=== PATIENT | female | born 1955 | race Caucasian/White ===

== ENCOUNTER → 2016-09-01 | Day surgery (SDC) | payer BC ==
[2016-08-21 10:42] VITALS: Ht 170.2 cm; Wt 68.2 kg
[~2016-09-01] VITALS: Ht 170.2 cm; Wt 68.2 kg
[~2016-09-01] MED LIST: 500ML BSS 0.3ML EPI 1:1000PF IRRIG ONE; ACET-1256 PO; ACETAMINOPHEN 325 MG TAB PO PRN; ACYC1OIN4 EXT; ALBU18002 INH; AMOX500T PO; AMOX875T PO; AMVISC PLUS 0.8ML SYRINGE INT OCU ONE; ATV/1 PO; BROM0.07 OPR; BSS FLUSH ONE; CALC1TAB9 PO; CEPH500C2 PO; COLON HEALTH PO; CYM/30 PO; DICL1GEL12 EXT; DILT1TAB58 PO; DOXY100C76 PO; DULO60CA44 PO; EpINEphrine INJ 1MG/ML AMP 1 MG/ML AMP ONE; FERR1TAB13 PO; FLUT0.15 NAE; GABA-113 PO; HYDR-5688 PO; HYG/25 PO; LACTATED RINGER'S 1000ML 500 ML IV SCH; LEVO50TA PO; LIDOCAINE 3.5% OPH GEL PER APPLICATION CHARGE ONE; LIDOCAINE HCL 1% MPF 2 ML VIAL ONE; LIDOCAINE HCL 2% 2 ML VIAL (20MG/ML) ONE; LOSA1TAB38 PO; LURA1TAB PO; MELO7.5T7 PO; META1TAB22 PO; METF-384 PO; METF1TAB53 PO; MIDAZOLAM HCL 1 MG/ML 2ML VIAL ONE; OCUCOAT 1 ML SOLN IO ONE; POTA20TA16 PO; POVIDONE-IODINE OP SOLN 30 ML BTL ONE; PRED-301 PO; PRED1SUS17 OPR; PRLSR20 PO; PROPARACAINE 0.5% OP SOLN PER DROP CHARGE OPR SCH; SULF800T23 PO; TOBRAMYCIN/DEXAMETHASONE OPH OINT PER APPLN CHARGE ONE; TOPI100T20 PO; TRAM-10 PO; TRMO115 TOP
--- NOTE | 2016-09-01 09:10 | History & Physical Bridge - [place] ---
H&P Re-Evaluation Bridge Note: I have examined the patient, reviewed the History & Physical and in the interval since the performance of the History & Physical I have noted the following changes of clinical significance: Diagnosis: Right Cataract Procedure: Right Cataract Removal with Lens Implant No changes noted
[2016-09-01] MEDS: PHENYLEPHRINE HCL 2.5% OP SOLN PER DROP CHARGE OPR SCH ×2 (09:15→09:20)
[2016-09-01] MEDS: TROPICAMIDE 1% OP SOLN PER DROP CHARGE OPR SCH ×2 (09:16→09:21)
[2016-09-01] MEDS: CYCLOPENTOLATE HCL 1% OP SOLN PER DROP CHARGE OPR SCH ×2 (09:17→09:22)
[2016-09-01] MEDS: KETOROLAC 0.5% OP SOLN PER DROP CHARGE OPR SCH ×2 (09:18→09:22)
[2016-09-01] MEDS: GATIFLOXACIN OP SOLN PER DROP CHARGE OPR SCH ×2 (09:19→09:26)
[2016-09-01 10:22] VITALS: TEMP 36.5
--- NOTE | 2016-09-01 10:22 | Discharge Instructions-SurgCtr ---
Discharge Instructions Visit Reason for Visit: Cataract Right Eye Discharge Discharge Diagnosis / Problem: cataract Discharge Goals Goal(s): Improve function Activity Recommendations Activity Limitations: per Instructions/Follow-up section Anesthesia . Post Anesthesia Instructions: If you have had General Anesthesia or IV Sedation: * Do not drive today. * Resume driving when surgeon permits. * Do not make important decisions or sign legal documents today. * Call surgeon for: 1. Temperature elevations greater than 101 degrees F. 2. Uncontrollable pain. 3. Excessive bleeding. 4. Persistent nausea and vomiting. 5. Medication intolerance (nausea, vomiting or rash). * For nausea and vomiting use only clear liquids such as: tea, soda, bouillon until nausea subsides, then gradually increase diet as tolerated. * If you have any concerns or questions, call your surgeon's office. If physician is unavailable and it is an emergency, call 911 or go to the nearest emergency room. . Instructions / Follow-Up Instructions / Follow-Up ACTIVITY RECOMMENDATIONS: * No strenuous lifting, jogging or running for 4 days * No swimming or yard work for 1 week. * Limited bending is permitted, such as putting on shoes. RETURN TO SCHOOL/WORK: No work until seen by physician in office. MEDICATIONS: Resume previous medications unless instructed otherwise by your surgeon. This includes eye drops for glaucoma. Zymaxid/Gatifloxacin (moreno cap) - one drop every 2 hours until bedtime Nevanac/Ilevro/Prolensa/Ketorolac (sheppard cap) - one drop every 4 hours until bedtime Prednisolone (white/pink cap, SHAKE WELL) - one drop every 2 hours until bedtime Starting tomorrow - all 3 drops every 4 hours until seen in the office Optive drops - as needed for discomfort SPECIAL CARE INSTRUCTIONS: * Wear eyeshield when sleeping, for four nights. * You may wear your own glasses or sunglasses while awake. * You may read or watch TV * You may shower and wash your face, but be gentle around the eye and pat dry. * Blurry vision and mild irritation are normal. * Call office if pain is more severe or vision becomes dark at . FOLLOW UP VISIT: Follow-up with Dr Tejeda tomorrow. Diet Recommendations Home Diet: resume previous diet Procedures Procedures Performed: Right Cataract Phacoemulsification With Intraocular Lens Implant Pending Studies Studies pending at discharge: no Medical Emergencies . Who to Call and When: Medical Emergencies: If at any time you feel your situation is an emergency, please call 911 immediately. . Non-Emergent Contact Non-Emergency issues call your: Blood Bank Manager . . "Provider Documentation" section prepared by Adarsh Tejeda.
--- NOTE | 2016-09-01 10:23 | [facility] Operative Report ---
Operative Report 1. PREOPERATIVE DIAGNOSIS: Cataract of the right eye. 2. POSTOPERATIVE DIAGNOSIS: Same. 3. PROCEDURE: Phacoemulsification with intraocular lens implantation of the right eye. SURGEON: Dr. Adarsh Tejeda. ANESTHESIA: Topical Lidocaine gel, 1% Non- Preserved intracameral Lidocaine, and monitored intravenous sedation. INDICATIONS FOR THE PROCEDURE: The patient is a 61 - year-old female with a history of cataract of the right eye causing significant visual impairment. The details of the proposed procedure were explained to the patient who asked appropriate questions and following discussion of all risks, benefits and alternatives agreed to have the procedure done. 4. OPERATION AND FINDINGS: DESCRIPTION OF PROCEDURE: After informed consent was obtained, the patient was brought to the Operating Room at the [facility]. The patient was placed in a supine position and then the right eye was prepped and draped in the usual sterile fashion for intraocular surgery. A drop of topical Lidocaine gel was placed in the operative eye. A wire lid speculum was then placed in the fornices. A corneal paracentesis was then created temporally. The Non-Preserved Lidocaine was then instilled into the anterior chamber. The anterior chamber was then pressurized with viscoelastic. A 2.0 mm clear corneal incision was then created temporally. A cystotome was inserted into the anterior chamber and used to create a tear in the anterior lens capsule. This capsular tear was then used to create a small flap and the flap was dragged in a counterclockwise direction in order to create a continuous curvilinear capsulorrhexis. Hydrodissection was accomplished with balanced salt solution. Phacoemulsification of the lens nucleus was then performed in a standard [id number] technique. The phaco time was 37 seconds with an average power of 23 %. The remaining cortical material was removed using irrigation aspiration. The capsular bag was then filled with viscoelastic. A [employer] Lomb MI60L +12.5 diopters lens was then loaded into the injector and injected into the capsular bag. The remaining viscoelastic was removed with the irrigation aspiration handpiece. The wound was hydrated and then checked and found to be watertight. The intraocular pressure was checked and found to be adequate. The wire lid speculum was removed and the patient's face was cleaned and dried. TobraDex ointment was placed in the inferior fornix. The patient was discharged to the Recovery Room having tolerated the procedure well. There were no complications. The patient will be seen tomorrow in the office for follow-up. I attest to the content of the Intraoperative Record and any orders documented therein. Any exceptions are noted below.
--- NOTE | 2016-09-01 10:29 | Anesthesia Progress Nt - [facility] ---
Anesthesia Post Op Note Date & Time Sep 01, 2016 at 10:29 Vital Signs Pain Intensity: 0 Vital Signs Past 12 Hours Date Time Temp Pulse Resp B/P Pulse Ox O2 Delivery O2 Flow Rate FiO2 09/01/16 10:22 36.5 80 16 124/73 95 Room Air 09/01/16 09:05 37.1 85 20 138/88 97 Room Air Notes Mental Status: alert / awake / arousable, participated in evaluation Pt Amnestic to Procedure: No Nausea / Vomiting: adequately controlled Pain: adequately controlled Airway Patency, RR, SpO2: stable & adequate BP & HR: stable & adequate Hydration State: stable & adequate Anesthetic Complications: no major complications apparent Recall as expected.
[2016-09-01 10:40] VITALS: BP 117/75; PULSE 80; O2SAT 96
== END | disposition home or self-care (01) ==
LOC: X.SURG 08:47
PROVIDERS: ATTEND Ophthalmology
DX: H26.9 Unspecified cataract (principal); Z87.891 Personal history of nicotine dependence; Z00.00 Encounter for general adult medical examination without abnormal findings; K22.70 Barrett's esophagus without dysplasia; M79.7 Fibromyalgia; I10 Essential (primary) hypertension; M17.9 Osteoarthritis of knee, unspecified; F41.8 Other specified anxiety disorders

== ENCOUNTER 2016-09-10 20:16 | Emergency (ER) | payer BC ==
[~2016-09-10] VITALS: Ht 172.7 cm; Wt 69.0 kg
[~2016-09-10 20:16] MED LIST changes: -500ML BSS 0.3ML EPI 1:1000PF IRRIG ONE; -ACETAMINOPHEN 325 MG TAB PO PRN; -AMOX500T PO; -AMOX875T PO; -AMVISC PLUS 0.8ML SYRINGE INT OCU ONE; -BROM0.07 OPR; -BSS FLUSH ONE; -CEPH500C2 PO; -DOXY100C76 PO; -EpINEphrine INJ 1MG/ML AMP 1 MG/ML AMP ONE; -HYDR-5688 PO; -LACTATED RINGER'S 1000ML 500 ML IV SCH; -LIDOCAINE 3.5% OPH GEL PER APPLICATION CHARGE ONE; -LIDOCAINE HCL 1% MPF 2 ML VIAL ONE; -LIDOCAINE HCL 2% 2 ML VIAL (20MG/ML) ONE; -METF-384 PO; -METF1TAB53 PO; -MIDAZOLAM HCL 1 MG/ML 2ML VIAL ONE; -OCUCOAT 1 ML SOLN IO ONE; -POVIDONE-IODINE OP SOLN 30 ML BTL ONE; -PRED1SUS17 OPR; -PROPARACAINE 0.5% OP SOLN PER DROP CHARGE OPR SCH; -SULF800T23 PO; -TOBRAMYCIN/DEXAMETHASONE OPH OINT PER APPLN CHARGE ONE; -TRMO115 TOP
[2016-09-10 20:26] VITALS: Ht 172.7 cm; Wt 69.0 kg
[2016-09-10] MEDS ORDERED: SODIUM CHLORIDE 0.9% 500ML 500 ML IV STA (21:21)
[2016-09-10] MEDS ORDERED: MoRPHine SULFATE 2 MG/ML CARP IV STA (21:21)
[2016-09-10] MEDS ORDERED: ONDANSETRON INJ 2 MG/ML 2 ML VIAL IV STA (21:21)
[2016-09-10 21:50] VITALS: O2SAT 95
[2016-09-10 22:02] LABS: HEMATOCRIT 38.5 % (37-47); MEAN CELL VOLUME 92.5 fL (80-100); MEAN CORPUSCULAR HEMOGLOBIN 33.2 pg (25-34); MEAN CORPUSCULAR HGB CONC 35.8 g/dl (32-36); MEAN PLATELET VOLUME 8.6 fL (7.4-10.4); PLATELET COUNT 159 K/uL (130-400); RED BLOOD COUNT 4.16 M/uL (4.2-5.4); WHITE BLOOD COUNT 7.19 K/uL (4.8-10.8)
[2016-09-10 22:26] LABS: BUN/CREATININE RATIO 23.6 (10-20); CALCIUM 9.5 mg/dl (8.5-10.1); CREATININE 1.1 mg/dl (0.60-1.20); POTASSIUM 3.2 mmol/L (3.5-5.1)
--- NOTE | 2016-09-10 22:28 | DIAGNOSTIC IMAGING REPORT ---
CT HEAD WITHOUT CONTRAST (CT) CLINICAL HISTORY: Head pain status post trauma COMPARISON STUDY: 06/16/2016 TECHNIQUE: Axial CT of the brain is performed from the vertex to the skull base. IV contrast was not administered for this examination. CT DOSE: 901.49 mGy.cm FINDINGS: No intra or extra-axial mass lesions are visualized. There is no CT evidence of acute cortical infarction. There is no evidence of midline shift. There is no acute hemorrhage. No calvarial fractures are visualized. There are minimal white matter hypodensities likely on a small vessel basis. There is no evidence of pathologic ventricular dilatation. There is no evidence of acute sinusitis IMPRESSION: No acute intracranial findings Electronically signed by: Tai Ramirez M.D. 09/10/2016 10:27 PM Dictated Date/Time: 09/10/2016 10:25 PM
[2016-09-10 22:29] LABS: ALB/GLOB RATIO 1.1 (0.9-2)
[2016-09-10 22:30] LABS: INR 0.9 (0.9-1.1); PARTIAL THROMBOPLASTIN RATIO 0.9; PROTHROMBIN TIME (PATIENT) 10.1 SECONDS (9.0-12.0)
--- NOTE | 2016-09-10 22:30 | DIAGNOSTIC IMAGING REPORT ---
CT OF THE CERVICAL SPINE CLINICAL HISTORY: Neck pain status post trauma COMPARISON STUDY: No previous studies for comparison. CT DOSE: TECHNIQUE: CT scan of the cervical spine was performed from the skull base to the thoracic inlet. Images are reviewed in the axial, sagittal, and coronal planes. IV contrast was not administered for this examination. FINDINGS: The visualized portions of the lung apices reveal no evidence of pneumothorax. The prevertebral soft tissues are normal. No fractures or subluxations are visualized. There are multilevel degenerative changes. Several chronic ossicles are visualized superior to the dens. Degenerative changes are most severe at the C5-6 and C6-7 levels. IMPRESSION: No evidence of acute fracture or traumatic subluxation. Electronically signed by: Tai Ramirez M.D. 09/10/2016 10:29 PM Dictated Date/Time: 09/10/2016 10:27 PM
[2016-09-10 22:36] LABS: BASO ABS # 0.06 K/uL (0-0.2); BASOPHIL % 0.9 %; COMPLETE YES; ECHINOCYTES 1+; EOSINOPHIL % 2.6 %; LYMPH ABS # 2.11 K/uL (1.2-3.4); LYMPHOCYTE % 29.3 %; NEUTROPHILS % 58.6 %
--- NOTE | 2016-09-10 22:46 | DIAGNOSTIC IMAGING REPORT ---
RIGHT CALF ULTRASONOGRAPHY CLINICAL HISTORY: Right lower leg pain status post trauma COMPARISON STUDY: None FINDINGS: there is a complex posterior calf mass measuring 59 x 23 x 27 mm. The appearance is highly suggestive of a hematoma. There is no internal vascularity. There was overlying skin ecchymosis. IMPRESSION: Complex posterior calf mass measuring 59 x 23 x 27 mm. The appearance is highly suggestive of a hematoma Electronically signed by: Tai Ramirez M.D. 09/10/2016 10:44 PM Dictated Date/Time: 09/10/2016 10:43 PM
[2016-09-10 23:01] LABS: URINE APPEARANCE CLEAR (CLEAR); URINE BILIRUBIN NEG (NEG); URINE COLOR YELLOW; URINE NITRITE NEG (NEG); URINE SPECIFIC GRAVITY 1.017 (1.000-1.030); UROBILINOGEN NEG (NEG); ZZUR CULT IF INDIC CLEAN CATCH NO
[2016-09-10 23:06] LABS: MANUAL MICROSCOPIC REQUIRED? NO; REVIEW REQ? NO
[2016-09-10] MEDS ORDERED: METF-384 PO (23:10)
[2016-09-11] MEDS ORDERED: NORCO 5/325MG HOME PACK PO ONE
[2016-09-11] MEDS ORDERED: HYDR-5688 PO (00:01)
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
[2016-09-11 00:15] VITALS: BP 142/94; PULSE 72; TEMP 37; O2SAT 99
--- NOTE | 2016-09-11 06:37 | DIAGNOSTIC IMAGING REPORT ---
RIGHT RIBS UNILATERAL WITH PA CHEST CLINICAL HISTORY: posterior pain/injury Right trauma COMPARISON STUDY: None FINDINGS: Negative right ribs. Negative chest. IMPRESSION: Negative study Electronically signed by: Mauricio Donnelly M.D. 09/11/2016 6:35 AM Dictated Date/Time: 09/11/2016 6:33 AM
--- NOTE | 2016-09-11 06:42 | DIAGNOSTIC IMAGING REPORT ---
RIGHT TIBIA/FIBULA 2 VIEWS ROUTINE CLINICAL HISTORY: pain/injury Right COMPARISON: None. DISCUSSION: The bones and joint spaces appear intact. There is no evidence of fracture, dislocation or bony disease. There is no evidence for soft tissue swelling. IMPRESSION: Negative study. Electronically signed by: Mauricio Donnelly M.D. 09/11/2016 6:41 AM Dictated Date/Time: 09/11/2016 6:40 AM
[2016-09-14] MEDS ORDERED: PRED1SUS17 OPR (11:19)
[2016-09-14] MEDS ORDERED: BROM0.07 OPR (11:19)
[2016-10-06] MEDS ORDERED: HYDR-5688 PO (13:08)
[2016-10-06] MEDS ORDERED: TRMO115 TOP (13:10)
[2016-10-06] MEDS ORDERED: CEPH500C2 PO (13:10)
[2016-10-06] MEDS ORDERED: METF1TAB53 PO (13:10)
[2016-10-06] MEDS ORDERED: DOXY100C76 PO (13:19)
[2016-10-13] MEDS ORDERED: AMOX500T PO (14:28)
[2016-10-21] MEDS ORDERED: AMOX875T PO (09:14)
[2016-11-23] MEDS ORDERED: SULF800T23 PO (10:36)
== END 2016-09-11 00:16 | disposition home or self-care (01) ==
LOC: EDBD 20:16 → C.EDD 20:18
DX: S80.11XA Contusion of right lower leg, initial encounter (principal); S20.211A Contusion of right front wall of thorax, initial encounter; Y04.0XXA Assault by unarmed brawl or fight, initial encounter; F32.9 Major depressive disorder, single episode, unspecified; I10 Essential (primary) hypertension; F31.9 Bipolar disorder, unspecified; Z98.890 Other specified postprocedural states; Z96.642 Presence of left artificial hip joint

== ENCOUNTER → 2016-09-24 | Day surgery (SDC) | payer BC ==
[2016-09-14 11:11] VITALS: Ht 170.2 cm; Wt 71.8 kg
[~2016-09-24] VITALS: Ht 170.2 cm; Wt 71.8 kg
[~2016-09-24] MED LIST changes: +500ML BSS 0.3ML EPI 1:1000PF IRRIG ONE; +ACETAMINOPHEN 325 MG TAB PO PRN; +AMOX500T PO; +AMOX875T PO; +AMVISC PLUS 0.8ML SYRINGE INT OCU ONE; +BROM0.07 OPR; +BSS FLUSH ONE; +CEPH500C2 PO; +DOXY100C76 PO; +EpINEphrine INJ 1MG/ML AMP 1 MG/ML AMP ONE; +HYDR-5688 PO; +LACTATED RINGER'S 1000ML 500 ML IV SCH; +LIDOCAINE 3.5% OPH GEL PER APPLICATION CHARGE ONE; +LIDOCAINE HCL 1% MPF 2 ML VIAL ONE; +METF1TAB53 PO; +MIDAZOLAM HCL 1 MG/ML 2ML VIAL ONE; +OCUCOAT 1 ML SOLN IO ONE; +POVIDONE-IODINE OP SOLN 30 ML BTL ONE; +PRED1SUS17 OPR; +PROPARACAINE 0.5% OP SOLN PER DROP CHARGE OPL SCH; +SULF800T23 PO; +TOBRAMYCIN/DEXAMETHASONE OPH OINT PER APPLN CHARGE ONE; +TRMO115 TOP
[2016-09-24] MEDS: PHENYLEPHRINE HCL 2.5% OP SOLN PER DROP CHARGE OPL SCH ×2 (09:24→09:29)
[2016-09-24] MEDS: TROPICAMIDE 1% OP SOLN PER DROP CHARGE OPL SCH ×2 (09:25→09:30)
[2016-09-24] MEDS: CYCLOPENTOLATE HCL 1% OP SOLN PER DROP CHARGE OPL SCH ×2 (09:27→09:31)
[2016-09-24] MEDS: KETOROLAC 0.5% OP SOLN PER DROP CHARGE OPL SCH ×2 (09:27→09:32)
[2016-09-24] MEDS: GATIFLOXACIN OP SOLN PER DROP CHARGE OPL SCH ×2 (09:28→09:35)
--- NOTE | 2016-09-24 09:56 | History & Physical Bridge - SC ---
H&P Re-Evaluation Bridge Note: I have examined the patient, reviewed the History & Physical and in the interval since the performance of the History & Physical I have noted the following changes of clinical significance: Diagnosis: Left Cataract Procedure: Left Cataract Removal with Lens Implant No changes noted
[2016-09-24 10:35] VITALS: TEMP 36.7
--- NOTE | 2016-09-24 10:35 | [facility] Operative Report ---
Operative Report Date of Service Sep 24, 2016. Operative Report 1. PREOPERATIVE DIAGNOSIS: Cataract of the left eye. 2. POSTOPERATIVE DIAGNOSIS: Same. 3. PROCEDURE: Phacoemulsification with intraocular lens implantation of the left eye. SURGEON: Dr. Adarsh Tejeda. ANESTHESIA: Topical Lidocaine gel, 1% Non- Preserved intracameral Lidocaine, and monitored intravenous sedation. INDICATIONS FOR THE PROCEDURE: The patient is a 61 - year-old female with a history of cataract of the left eye causing significant visual impairment. The details of the proposed procedure were explained to the patient who asked appropriate questions and following discussion of all risks, benefits and alternatives agreed to have the procedure done. 4. OPERATION AND FINDINGS: DESCRIPTION OF PROCEDURE: After informed consent was obtained, the patient was brought to the Operating Room at the [facility]. The patient was placed in a supine position and then the left eye was prepped and draped in the usual sterile fashion for intraocular surgery. A drop of topical Lidocaine gel was placed in the operative eye. A wire lid speculum was then placed in the fornices. A corneal paracentesis was then created temporally. The Non-Preserved Lidocaine was then instilled into the anterior chamber. The anterior chamber was then pressurized with viscoelastic. A 2.0 mm clear corneal incision was then created temporally. A cystotome was inserted into the anterior chamber and used to create a tear in the anterior lens capsule. This capsular tear was then used to create a small flap and the flap was dragged in a counterclockwise direction in order to create a continuous curvilinear capsulorrhexis. Hydrodissection was accomplished with balanced salt solution. Phacoemulsification of the lens nucleus was then performed in a standard [id number]-lyd-rmrusil technique. The phaco time was 36 seconds with an average power of 23 %. The remaining cortical material was removed using irrigation aspiration. The capsular bag was then filled with viscoelastic. A [employer] MI60L +14.0 diopters lens was then loaded into the injector and injected into the capsular bag. The remaining viscoelastic was removed with the irrigation aspiration handpiece. The wound was hydrated and then checked and found to be watertight. The intraocular pressure was checked and found to be adequate. The wire lid speculum was removed and the patient's face was cleaned and dried. TobraDex ointment was placed in the inferior fornix. The patient was discharged to the Recovery Room having tolerated the procedure well. There were no complications. The patient will be seen tomorrow in the office for follow-up. I attest to the content of the Intraoperative Record and any orders documented therein. Any exceptions are noted below.
--- NOTE | 2016-09-24 10:35 | Discharge Instructions-SurgCtr ---
Discharge Instructions Date of Service Sep 24, 2016. Visit Reason for Visit: Cataract Left Eye Discharge Discharge Diagnosis / Problem: cataract Discharge Goals Goal(s): Improve function Activity Recommendations Activity Limitations: per Instructions/Follow-up section Anesthesia . Post Anesthesia Instructions: If you have had General Anesthesia or IV Sedation: * Do not drive today. * Resume driving when surgeon permits. * Do not make important decisions or sign legal documents today. * Call surgeon for: 1. Temperature elevations greater than 101 degrees F. 2. Uncontrollable pain. 3. Excessive bleeding. 4. Persistent nausea and vomiting. 5. Medication intolerance (nausea, vomiting or rash). * For nausea and vomiting use only clear liquids such as: tea, soda, bouillon until nausea subsides, then gradually increase diet as tolerated. * If you have any concerns or questions, call your surgeon's office. If physician is unavailable and it is an emergency, call 911 or go to the nearest emergency room. . Instructions / Follow-Up Instructions / Follow-Up ACTIVITY RECOMMENDATIONS: * No strenuous lifting, jogging or running for 4 days * No swimming or yard work for 1 week. * Limited bending is permitted, such as putting on shoes. RETURN TO SCHOOL/WORK: No work until seen by physician in office. MEDICATIONS: Resume previous medications unless instructed otherwise by your surgeon. This includes eye drops for glaucoma. Zymaxid/Gatifloxacin (moreno cap) - one drop every 2 hours until bedtime Nevanac/Ilevro/Prolensa/Ketorolac (sheppard cap) - one drop every 4 hours until bedtime Prednisolone (white/pink cap, SHAKE WELL) - one drop every 2 hours until bedtime Starting tomorrow - all 3 drops every 4 hours until seen in the office Optive drops - as needed for discomfort SPECIAL CARE INSTRUCTIONS: * Wear eyeshield when sleeping, for four nights. * You may wear your own glasses or sunglasses while awake. * You may read or watch TV * You may shower and wash your face, but be gentle around the eye and pat dry. * Blurry vision and mild irritation are normal. * Call office if pain is more severe or vision becomes dark at . FOLLOW UP VISIT: Follow-up with Dr Tejeda tomorrow. Diet Recommendations Home Diet: resume previous diet Procedures Procedures Performed: Left Cataract Phacoemulsification With Intraocular Lens Implant Pending Studies Studies pending at discharge: no Medical Emergencies . Who to Call and When: Medical Emergencies: If at any time you feel your situation is an emergency, please call 911 immediately. . Non-Emergent Contact Non-Emergency issues call your: Cage Maker . . "Provider Documentation" section prepared by Adarsh Tejeda.
--- NOTE | 2016-09-24 11:03 | Anesthesia Progress Nt - [facility] ---
Anesthesia Post Op Note Date & Time Sep 24, 2016 at 11:03 Vital Signs Pain Intensity: 0 Vital Signs Past 12 Hours Date Time Temp Pulse Resp B/P Pulse Ox O2 Delivery O2 Flow Rate FiO2 09/24/16 10:35 36.7 82 16 127/77 97 Room Air 09/24/16 09:14 36.8 76 18 147/88 97 Room Air Notes Mental Status: alert / awake / arousable, participated in evaluation Pt Amnestic to Procedure: Yes Nausea / Vomiting: adequately controlled Pain: adequately controlled Airway Patency, RR, SpO2: stable & adequate BP & HR: stable & adequate Hydration State: stable & adequate Anesthetic Complications: no major complications apparent
[2016-09-24 11:05] VITALS: BP 133/83; PULSE 81; O2SAT 96
== END | disposition home or self-care (01) ==
LOC: X.SURG 08:53
PROVIDERS: ATTEND Ophthalmology
DX: H26.9 Unspecified cataract (principal); H54.7 Unspecified visual loss; I10 Essential (primary) hypertension; K21.9 Gastro-esophageal reflux disease without esophagitis; M19.90 Unspecified osteoarthritis, unspecified site

== ENCOUNTER 2017-05-24 16:05 | Inpatient (IN) | payer BC ==
[~2017-05-24] VITALS: Ht 170.2 cm; Wt 78.0 kg
[~2017-05-24 16:05] MED LIST changes: -500ML BSS 0.3ML EPI 1:1000PF IRRIG ONE; -ACETAMINOPHEN 325 MG TAB PO PRN; -AMOX500T PO; -AMOX875T PO; -AMVISC PLUS 0.8ML SYRINGE INT OCU ONE; -BSS FLUSH ONE; -DOXY100C76 PO; -EpINEphrine INJ 1MG/ML AMP 1 MG/ML AMP ONE; -HYG/25 PO; -LACTATED RINGER'S 1000ML 500 ML IV SCH; -LIDOCAINE 3.5% OPH GEL PER APPLICATION CHARGE ONE; -LIDOCAINE HCL 1% MPF 2 ML VIAL ONE; -MIDAZOLAM HCL 1 MG/ML 2ML VIAL ONE; -OCUCOAT 1 ML SOLN IO ONE; -POVIDONE-IODINE OP SOLN 30 ML BTL ONE; -PROPARACAINE 0.5% OP SOLN PER DROP CHARGE OPL SCH; -SULF800T23 PO; -TOBRAMYCIN/DEXAMETHASONE OPH OINT PER APPLN CHARGE ONE
--- NOTE | 2017-05-24 16:23 | EMERGENCY ROOM VISIT NOTE ---
History Report prepared by Kevin: Ilana Colin Under the Supervision of: Dr. Tone Raza M.D. First contact with patient: 16:07 Chief Complaint: FALL Stated Complaint: LEFT KNEE, ARM, HIP & BACK PAIN FROM FALL History of Present Illness The patient is a 61 year old female who presents to the Emergency Room with complaints of an episode of a fall beginning last night. The patient states that she was in the kitchen and had an episode of loss of consciousness and woke up on the floor near the kitchen sink. She reports that she does not know how long she was not conscious for and has no history of syncope. She notes that schneider she tried to get up after the fall and kept falling asleep and she is concerned that her fall had something to do with taking her pain medication. The patient states that she has a history of fibromyalgia. She complains of left leg pain and swelling, left knee pain and swelling, left foot and ankle pain, left sided groin pain, right upper thigh pain, back pain, and left arm pain. She notes that she has been able to walk today but it is very painful and that is why she came into the ED. The patient states that she takes gabapentin, extra strength Tylenol, tramadol, and an antibiotic for a sinus infection. She notes that her normal pain medications have not relieved her pain. Source of History: patient Onset: last night Position: other (global) Quality: other (syncope) Timing: other (episode) Modifying Factors (Relieving): other (none) Associated Symptoms: + LOC Note: She complains of left leg pain and swelling, left knee pain and swelling, left foot and ankle pain, left sided groin pain, right upper thigh pain, back pain, and left arm pain. Review of Systems See HPI for pertinent positives & negatives. A total of 10 systems reviewed and were otherwise negative. Past Medical & Surgical Medical Problems: (1) Bipolar disorder (2) Borderline personality disorder (3) Depression (4) Fibromyalgia (5) HTN (hypertension) Surgical Problems: (1) H/O inguinal hernia repair (2) History of back surgery (3) Status post total hip replacement, left Family History Cancer FH: heart disease FHx: lung disease Hypertension Social History Smoking Status: Former Smoker Alcohol Use: none Drug Use: none Marital Status: Housing Status: lives with family Occupation Status: retired, disabled Current/Historical Medications Scheduled Calcium Citrate-Vitamin D (Citracal + D3 Maximum), 1 TAB PO BID Cefuroxime Axetil (Cefuroxime Axetil), 500 MG PO BID Chlorthalidone (Hygroton), 25 MG PO QAM Diltiazem Hcl Coated Beads (Cardizem La), 120 MG PO QAM Duloxetine HCl (Cymbalta), 1 CAP PO QAM Duloxetine Hcl (Cymbalta), 60 MG PO QAM Ferrous Sulfate (Kp Ferrous Sulfate), 1 TAB PO BID Gabapentin (Neurontin), 4 CAP PO TID Levothyroxine Sodium (Synthroid), 50 MCG PO QAM Losartan Potassium (Cozaar), 100 MG PO QAM Lurasidone Hcl (Latuda), 20 MG PO HS Meloxicam (Mobic), 7.5 MG PO BID Metaxalone (Skelaxin), 800 MG PO QID Omeprazole (Prilosec), 20 MG PO BID Potassium Ext Rel (Klor-Con), 20 MEQ PO QAM Prednisone (Prednisone), 5 MG PO QAM Topiramate (Topamax), 150 MG PO HS Triamcinolone Acet (Triamcinolone Acetonide), 1 APPLN TOP BID [Colon Health], 1 CAP PO QAM Scheduled PRN Acetaminophen (Tylenol), 2 TAB PO Q4H PRN for Pain Acyclovir Topical (Acyclovir), 1 DOSE EXT DIRECTED PRN for PRN Albuterol Sulfate (Proair Respiclick), 2 PUFFS INH QID PRN for Shortness of Breath Diclofenac Sodium (Topical) (Voltaren 1% Top Gel), 1 DOSE EXT QID PRN for Pain Fluticasone Propionate (Nasal) (Flonase Allergy Relief), 2 SPRAY MEAGAN DAILY PRN for PRN Lorazepam (Ativan), 1 MG PO DAILY PRN for Anxiety Tramadol (Ultram), 2 TAB PO Q6H PRN for Pain Allergies Coded Allergies: Cyclobenzaprine (Verified Allergy, Intermediate, RASH AND SWELLING, ) Fentanyl (Verified Allergy, Unknown, MAJOR FEET SWELLING, 05/24/17) Oxcarbazepine (Verified Allergy, Unknown, UNKNOWN - PT DOESN'T REMEMBER, 05/24/17) Risperidone (Verified Adverse Reaction, Intermediate, exhaustion, 05/24/17) Clonazepam (Verified Adverse Reaction, Mild, nausea, 05/24/17) Physical Exam Vital Signs Date Time Temp Pulse Resp B/P (MAP) Pulse Ox O2 Delivery O2 Flow Rate FiO2 05/24/17 20:12 84 18 142/92 97 Room Air 05/24/17 19:17 83 05/24/17 18:30 94 18 154/101 95 Room Air 05/24/17 16:20 36.8 95 20 168/105 98 Room Air Physical Exam GENERAL: Patient is disinterested in my questions, focused on explaining events of last 24 hours. HEENT: No acute trauma, normocephalic atraumatic, mucous membranes moist, no nasal congestion, no scleral icterus. NECK: No stridor, no adenopathy, no meningismus, trachea is midline. LUNGS: No dyspnea. Clear to auscultation and equal bilaterally. No wheeze, no rhonchi. HEART: Regular rate and rhythm. No murmurs, rubs, gallops appreciated. ABDOMEN: Soft, nontender, bowel sounds positive, no masses appreciated, no peritonitis. BACK: Old surgical scarring of the upper back. EXTREMITIES: Effusion of left knee with pain with range of motion, old scarring on left upper arm. Tender to palpation anywhere on the body. Several small bruises of the left knee which appear several days old. NEUROLOGIC: Alert and oriented, no acute motor or sensory deficits, no focal weakness, cranial nerves grossly intact. SKIN: No rash, no jaundice, no diaphoresis. Medical Decision & Procedures ER Provider Diagnostic Interpretation: Radiology results and stated below per my review and radiologist interpretation: L TIBIA/FIBULA 2 VIEWS ROUTINE DISCUSSION: The bones and joint spaces appear intact. There is no evidence of fracture, dislocation or bony disease. Degenerative change left knee. Small joint effusion. IMPRESSION: Degenerative change. Small left knee joint effusion. No acute bony abnormality. The above report was generated using voice recognition software. It may contain grammatical, syntax or spelling errors. Electronically signed by: Mauricio Donnelly M.D. 05/24/2017 6:08 PM Dictated Date/Time: 05/24/2017 6:08 PM L HUMERUS MIN 2 VIEWS ROUTINE DISCUSSION: The bones and joint spaces appear intact. There is no evidence of fracture, dislocation or bony disease. Moderate degenerative change. No acute process. IMPRESSION: No acute process. Moderate degenerative change left elbow and left shoulder The above report was generated using voice recognition software. It may contain grammatical, syntax or spelling errors. Electronically signed by: Mauricio Donnelly M.D. 05/24/2017 6:06 PM Dictated Date/Time: 05/24/2017 6:05 PM SINGLE VIEW PELVIS; 2 VIEWS LEFT HIP FINDINGS: An AP view of the pelvis with AP and frog-leg views of the left hip are correlated with pelvic CT dated 06/16/2016. The skeletal structures are osteopenic. There is no radiographic evidence of fracture involving the hips or bony pelvis. A bipolar left hip arthroplasty is in near-anatomic alignment. No periprosthetic lucency is seen. Mild arthritic change is noted in the right hip. Large enthesophytes arise from the anterior superior iliac spine bilaterally. Extensive lumbosacral fusion hardware is partially imaged. There are numerous pelvic phleboliths. No bowel obstruction is seen. The overlying soft tissues are normal in appearance. IMPRESSION: 1. There is no radiographic evidence of acute fracture involving the hips or bony pelvis. 2. A left hip arthroplasty is in near-anatomic alignment. 3. Osteopenia and degenerative change as above. Electronically signed by: Edwin Caban M.D. 05/24/2017 6:05 PM Dictated Date/Time: 05/24/2017 6:03 PM L FEMUR 2 VIEWS ROUTINE DISCUSSION: Total left hip arthroplasty. Good contact between prosthetic and underlying bone. No well-defined fracture. Degenerative changes left knee with evidence for synovial calcifications. Small joint effusion. There is no evidence for soft tissue swelling. IMPRESSION: Degenerative and postoperative change. No acute bony abnormality. The above report was generated using voice recognition software. It may contain grammatical, syntax or spelling errors. Electronically signed by: Mauricio Donnelly M.D. 05/24/2017 6:07 PM Dictated Date/Time: 05/24/2017 6:06 PM SINGLE VIEW CHEST FINDINGS: An AP, portable, supine chest radiograph is compared to study dated 06/16/2016. The examination is degraded by portable technique and patient rotation. The heart is top normal for projection. There is atherosclerotic calcification of the thoracic aorta. Chronic interstitial thickening is unchanged. No airspace consolidation, large pleural effusion, or pneumothorax is seen. The skeletal structures are osteopenic. The bony thorax is grossly intact. Fusion hardware is noted at the thoracolumbar junction. IMPRESSION: No acute cardiopulmonary abnormality. Electronically signed by: Edwin aCban M.D. 05/24/2017 6:03 PM Dictated Date/Time: 05/24/2017 6:[address] SCAN OF THE BRAIN WITHOUT IV CONTRAST FINDINGS: Brain parenchyma: There is minimal subcortical and periventricular microangiopathic change. There is no hemorrhage, mass effect, or evidence of acute territorial ischemia by CT criteria. Zapata-white matter is preserved. No extra-axial fluid collection is seen. Ventricles, sulci, cisterns: Normal in configuration. Intracranial vasculature: There is atherosclerotic calcification of the cavernous carotid arteries. Calvarium: Skeletal structures are osteopenic. No depressed calvarial fracture is seen. Sinuses and mastoids: The visualized paranasal sinuses are clear. The mastoid air cells are well pneumatized. Orbits: The bony orbits are grossly intact. There are bilateral ocular lens implants. IMPRESSION: There is no hemorrhage, mass effect, or evidence of acute territorial ischemia by CT criteria. Electronically signed by: Edwin Caban M.D. 05/24/2017 5:03 PM Dictated Date/Time: 05/24/2017 5:01 PM Laboratory Results 05/24/17 16:30 Red Blood Count 4.47, Mean Corpuscular Volume 91.7, Mean Corpuscular Hemoglobin 32.7, Mean Corpuscular Hemoglobin Concent 35.6, Mean Platelet Volume 8.7, Neutrophils (%) (Auto) 67.4, Lymphocytes (%) (Auto) 16.3, Monocytes (%) (Auto) 14.2, Eosinophils (%) (Auto) 1.0, Basophils (%) (Auto) 0.6, Neutrophils # (Auto ) 6.91, Lymphocytes # (Auto) 1.67, Monocytes # (Auto) 1.46, Eosinophils # (Auto ) 0.10, Basophils # (Auto) 0.06 05/24/17 16:30 Test 05/24/17 16:30 05/24/17 16:48 05/24/17 20:03 White Blood Count 10.25 K/uL (4.8-10.8) Red Blood Count 4.47 M/uL (4.2-5.4) Hemoglobin 14.6 g/dL (12.0-16.0) Hematocrit 41.0 % (37-47) Mean Corpuscular Volume 91.7 fL (80-100) Mean Corpuscular Hemoglobin 32.7 pg (25-34) Mean Corpuscular Hemoglobin Concent 35.6 g/dl (32-36) Platelet Count 195 K/uL (130-400) Mean Platelet Volume 8.7 fL (7.4-10.4) Neutrophils (%) (Auto) 67.4 % Lymphocytes (%) (Auto) 16.3 % Monocytes (%) (Auto) 14.2 % Eosinophils (%) (Auto) 1.0 % Basophils (%) (Auto) 0.6 % Neutrophils # (Auto) 6.91 K/uL (1.4-6.5) Lymphocytes # (Auto) 1.67 K/uL (1.2-3.4) Monocytes # (Auto) 1.46 K/uL (0.11-0.59) Eosinophils # (Auto) 0.10 K/uL (0-0.5) Basophils # (Auto) 0.06 K/uL (0-0.2) RDW Standard Deviation 41.8 fL (36.4-46.3) RDW Coefficient of Variation 12.5 % (11.5-14.5) Immature Granulocyte % (Auto) 0.5 % Immature Granulocyte # (Auto) 0.05 K/uL (0.00-0.02) Anion Gap 11.0 mmol/L (3-11) Est Creatinine Clear Calc Drug Dose 51.8 ml/min Estimated GFR () 55.0 Estimated GFR (Non- 47.4 BUN/Creatinine Ratio 17.7 (10-20) Calcium Level 9.6 mg/dl (8.5-10.1) Magnesium Level 2.1 mg/dl (1.8-2.4) Total Bilirubin 0.6 mg/dl (0.2-1) Direct Bilirubin 0.1 mg/dl (0-0.2) Aspartate Amino Transf (AST/SGOT) 323 U/L (15-37) Alanine Aminotransferase (ALT/SGPT) 76 U/L (12-78) Alkaline Phosphatase 54 U/L (45-117) Total Creatine Kinase 66182 U/L (26-192) Creatine Kinase MB 20.8 ng/ml (0.5-3.6) Creatine Kinase MB Ratio 0.2 (0-3.0) Total Protein 6.7 gm/dl (6.4-8.2) Albumin 3.2 gm/dl (3.4-5.0) Acetaminophen Level 19 ug/ml (10-30) Urine Color YELLOW Urine Appearance CLEAR (CLEAR) Urine pH 5.0 (4.5-7.5) Urine Specific Ringling 1.036 (1.000-1.030) Urine Protein NEG (NEG) Urine Glucose (UA) NEG (NEG) Urine Ketones TRACE (NEG) Urine Occult Blood 2+ (NEG) Urine Nitrite NEG (NEG) Urine Bilirubin NEG (NEG) Urine Urobilinogen NEG (NEG) Urine Leukocyte Esterase NEG (NEG) Urine WBC (Auto) 1-5 /hpf (0-5) Urine RBC (Auto) 0-4 /hpf (0-4) Urine Hyaline Casts (Auto) 5-10 /lpf (0-5) Urine Epithelial Cells (Auto) 10-20 /lpf (0-5) Urine Bacteria (Auto) NEG (NEG) Urine Opiates Screen POS (NEG) Urine Methadone, Qualitative NEG (NEG) Urine Barbiturates NEG (NEG) Urine Phencyclidine (PCP) Level NEG (NEG) Ur Amphetamine/Methamphetamine NEG (NEG) MDMA (Ecstasy) Screen NEG (NEG) Urine Benzodiazepines Screen NEG (NEG) Urine Cocaine Metabolite NEG (NEG) Urine Marijuana (THC) NEG (NEG) Troponin I 0.037 ng/ml (0-0.045) Thyroid Stimulating Hormone (TSH) 1.460 uIu/ml (0.300-4.500) Ethyl Alcohol mg/dL < 3.0 mg/dl (0-3) Laboratory results as reviewed by me. Medications Administered Medications (Trade) Dose Ordered Sig/Yovany Route Start Time Stop Time Status Last Admin Dose Admin Morphine Sulfate (MoRPHine SULFATE INJ) 4 mg NOW STAT IV 05/24/17 16:26 05/24/17 16:27 DC 05/24/17 16:35 4 MG Hydromorphone HCl (Dilaudid Inj) 1 mg NOW STAT IV 05/24/17 18:16 05/24/17 18:17 DC 05/24/17 18:24 1 MG Sodium Chloride 1,000 ml @ 999 mls/hr Q1H1M STAT IV 05/24/17 18:16 05/24/17 19:16 DC 05/24/17 18:30 999 MLS/HR Potassium Chloride (Klor-Con M10) 40 meq STK-MED ONCE .ROUTE 05/24/17 20:09 05/24/17 20:10 DC 05/24/17 20:10 40 MEQ ECG Indication: syncope Rate (beats per minute): 92 Rhythm: normal sinus Findings: ST depression (Lateral), no ectopy ED Course 160: The patient was evaluated in room B2. A complete history and physical exam was performed. 181: Dilaudid Inj 1mg IV. 1815: Sodium Chloride 1000 ml @ 999 mls/hr IV, Dilaudid Inj 1mg IV. 1823: I reevaluated the patient and she is feeling better. 1855: Discussed the patient's case with Dr. Irving of [facility]. The patient will be evaluated for further treatment and disposition. 1901: Upon reevaluation, the patient is doing well. Discussed results and treatment plan with the patient. She verbalized understanding and agreement with the treatment plan. The patient will be evaluated for further management. Medical Decision Differential: Sepsis, Infectious (UTI/Pneumonia/Meningitis/etc), Metabolic/ Electrolyte Abnormality, Cardiac, Hepatic, Endocrine, Toxicologic, Neurologic, amongst other pathologies entertained. 61 yr old female with self reported syncope last night and unknown down time. Large edema left knee without evidence septic joint. She essentially has pain everywhere which she relates to exacerbation of her fibromyalgia and I am essentially unable to palpate anywhere without her yelling in pain. Extensive imaging of places she says are worst pain without any obvious fractures. CT head negative done as history syncope. EKG without stemi. Labs remarkable for mild bump in AST, and mild trop elevation which I suspect are secondary to significant rhabdo. She is adamant no Tylenol OD nor attempt at harming self. She was given IV fluids for rhabdo and will need to come in for further work-up and evaluation. [place] Drug Monitoring Program Search Results: patient reviewed within database Drug Monitoring Findings: Many prescriptions for Tramadol. Medication Reconcilliation Current Medication List: was personally reviewed by me Blood Pressure Screening Patient's blood pressure: Elevated blood pressure Blood pressure disposition: Elevated BP felt to be situational Consults Time Called: 1849 Consulting Physician: Dr. Irving Returned Call: 1855 Discussed the patient's case with Dr. Irving of [facility]. The patient will be evaluated for further treatment and disposition. Impression Primary Impression: Rhabdomyolysis Additional Impressions: Syncope Total body pain Contusion of left knee Scribe Attestation The scribe's documentation has been prepared under my direction and personally reviewed by me in its entirety. I confirm that the note above accurately reflects all work, treatment, procedures, and medical decision making performed by me. Departure Information Dispostion Being Evaluated By Hospitalist Referrals Arpit Osman III, M.D. (PCP) Patient Instructions My [facility] Problem Qualifiers
[2017-05-24] MEDS ORDERED: MoRPHine SULFATE 4 MG/ML 1 ML CARP\\VIAL IV STA (16:26)
[2017-05-24 16:44] LABS: MEAN CELL VOLUME 91.7 fL (80-100); MEAN CORPUSCULAR HEMOGLOBIN 32.7 pg (25-34); MEAN CORPUSCULAR HGB CONC 35.6 g/dl (32-36); MEAN PLATELET VOLUME 8.7 fL (7.4-10.4); PLATELET COUNT 195 K/uL (130-400); RED BLOOD COUNT 4.47 M/uL (4.2-5.4); WHITE BLOOD COUNT 10.25 K/uL (4.8-10.8)
--- NOTE | 2017-05-24 17:04 | DIAGNOSTIC IMAGING REPORT ---
CT SCAN OF THE BRAIN WITHOUT IV CONTRAST CLINICAL HISTORY: Fall yesterday. COMPARISON STUDY: CT of the brain dated 09/10/16. TECHNIQUE: Unenhanced axial CT scan of the brain is performed from the vertex to the skull base. CT DOSE: 537.48 mGy.cm FINDINGS: Brain parenchyma: There is minimal subcortical and periventricular microangiopathic change. There is no hemorrhage, mass effect, or evidence of acute territorial ischemia by CT criteria. Zapata-white matter is preserved. No extra-axial fluid collection is seen. Ventricles, sulci, cisterns: Normal in configuration. Intracranial vasculature: There is atherosclerotic calcification of the cavernous carotid arteries. Calvarium: Skeletal structures are osteopenic. No depressed calvarial fracture is seen. Sinuses and mastoids: The visualized paranasal sinuses are clear. The mastoid air cells are well pneumatized. Orbits: The bony orbits are grossly intact. There are bilateral ocular lens implants. IMPRESSION: There is no hemorrhage, mass effect, or evidence of acute territorial ischemia by CT criteria. Electronically signed by: Edwin Caban M.D. 05/24/2017 5:03 PM Dictated Date/Time: 05/24/2017 5:01 PM
[2017-05-24 17:05] LABS: BASO % 0.6 %; BASO ABS # 0.06 K/uL (0-0.2); COMPLETE YES; IG% 0.5 %; LYMPH % 16.3 %; LYMPH ABS # 1.67 K/uL (1.2-3.4); MONO % 14.2 %; NEUT % 67.4 %
[2017-05-24 17:07] LABS: BUN/CREATININE RATIO 17.7 (10-20); CALCIUM 9.6 mg/dl (8.5-10.1); CREATININE 1.22 mg/dl (0.60-1.20); MAGNESIUM 2.1 mg/dl (1.8-2.4); POTASSIUM 3.1 mmol/L (3.5-5.1)
--- NOTE | 2017-05-24 18:04 | DIAGNOSTIC IMAGING REPORT ---
SINGLE VIEW CHEST CLINICAL HISTORY: Fall. Syncope. FINDINGS: An AP, portable, supine chest radiograph is compared to study dated 06/16/2016. The examination is degraded by portable technique and patient rotation. The heart is top normal for projection. There is atherosclerotic calcification of the thoracic aorta. Chronic interstitial thickening is unchanged. No airspace consolidation, large pleural effusion, or pneumothorax is seen. The skeletal structures are osteopenic. The bony thorax is grossly intact. Fusion hardware is noted at the thoracolumbar junction. IMPRESSION: No acute cardiopulmonary abnormality. Electronically signed by: Edwin Caban M.D. 05/24/2017 6:03 PM Dictated Date/Time: 05/24/2017 6:02 PM
[2017-05-24 18:06] LABS: CKMB/CK RATIO 0.2 (0-3.0)
--- NOTE | 2017-05-24 18:07 | DIAGNOSTIC IMAGING REPORT ---
L HUMERUS MIN 2 VIEWS ROUTINE CLINICAL HISTORY: left upper arm pain s/p fall pain. Trauma. COMPARISON: None. DISCUSSION: The bones and joint spaces appear intact. There is no evidence of fracture, dislocation or bony disease. Moderate degenerative change. No acute process. IMPRESSION: No acute process. Moderate degenerative change left elbow and left shoulder The above report was generated using voice recognition software. It may contain grammatical, syntax or spelling errors. Electronically signed by: Mauricio Donnelly M.D. 05/24/2017 6:06 PM Dictated Date/Time: 05/24/2017 6:05 PM
--- NOTE | 2017-05-24 18:07 | DIAGNOSTIC IMAGING REPORT ---
SINGLE VIEW PELVIS; 2 VIEWS LEFT HIP CLINICAL HISTORY: Fall with left hip pain. FINDINGS: An AP view of the pelvis with AP and frog-leg views of the left hip are correlated with pelvic CT dated 06/16/2016. The skeletal structures are osteopenic. There is no radiographic evidence of fracture involving the hips or bony pelvis. A bipolar left hip arthroplasty is in near-anatomic alignment. No periprosthetic lucency is seen. Mild arthritic change is noted in the right hip. Large enthesophytes arise from the anterior superior iliac spine bilaterally. Extensive lumbosacral fusion hardware is partially imaged. There are numerous pelvic phleboliths. No bowel obstruction is seen. The overlying soft tissues are normal in appearance. IMPRESSION: 1. There is no radiographic evidence of acute fracture involving the hips or bony pelvis. 2. A left hip arthroplasty is in near-anatomic alignment. 3. Osteopenia and degenerative change as above. Electronically signed by: Edwin Caban M.D. 05/24/2017 6:05 PM Dictated Date/Time: 05/24/2017 6:03 PM
--- NOTE | 2017-05-24 18:09 | DIAGNOSTIC IMAGING REPORT ---
L FEMUR 2 VIEWS ROUTINE CLINICAL HISTORY: left femur pain s/p fall trauma. Pain. COMPARISON: None. DISCUSSION: Total left hip arthroplasty. Good contact between prosthetic and underlying bone. No well-defined fracture. Degenerative changes left knee with evidence for synovial calcifications. Small joint effusion. There is no evidence for soft tissue swelling. IMPRESSION: Degenerative and postoperative change. No acute bony abnormality. The above report was generated using voice recognition software. It may contain grammatical, syntax or spelling errors. Electronically signed by: Mauricio Donnelly M.D. 05/24/2017 6:07 PM Dictated Date/Time: 05/24/2017 6:06 PM
--- NOTE | 2017-05-24 18:10 | DIAGNOSTIC IMAGING REPORT ---
L TIBIA/FIBULA 2 VIEWS ROUTINE CLINICAL HISTORY: left tibial pain and knee swelling s/p fall COMPARISON: None. DISCUSSION: The bones and joint spaces appear intact. There is no evidence of fracture, dislocation or bony disease. Degenerative change left knee. Small joint effusion. IMPRESSION: Degenerative change. Small left knee joint effusion. No acute bony abnormality. The above report was generated using voice recognition software. It may contain grammatical, syntax or spelling errors. Electronically signed by: Mauricio Donnelly M.D. 05/24/2017 6:08 PM Dictated Date/Time: 05/24/2017 6:08 PM
[2017-05-24] MEDS ORDERED: HYDROmorphone INJ 1 MG/ML SYR ONE (18:12)
[2017-05-24] MEDS ORDERED: HYDROmorphone INJ 1 MG/ML SYR IV STA (18:16)
[2017-05-24] MEDS ORDERED: SODIUM CHLORIDE 0.9% 1000ML 1,000 ML IV STA (18:16)
[2017-05-24 18:57] LABS: URINE APPEARANCE CLEAR (CLEAR); URINE BILIRUBIN NEG (NEG); URINE COLOR YELLOW; URINE NITRITE NEG (NEG); URINE SPECIFIC GRAVITY 1.036 (1.000-1.030); UROBILINOGEN NEG (NEG); ZZURINE CULT IF INDIC CATH NO
[2017-05-24 19:01] LABS: MANUAL MICROSCOPIC REQUIRED? NO; REVIEW REQ? NO
[2017-05-24] MEDS ORDERED: HYG/25 PO (19:01)
[2017-05-24] MEDS ORDERED: CEFU1TAB35 PO (19:01)
[2017-05-24] MEDS ORDERED: POTASSIUM CHLORIDE 10 MEQ TABCR PO STA (19:32)
[2017-05-24 20:02] LABS: BENZODIAZEPINE, URINE NEG (NEG); COCAINE,URINE NEG (NEG); PHENCYCLIDINE, URINE NEG (NEG)
[2017-05-24] MEDS ORDERED: POTASSIUM CHLORIDE 10 MEQ TABCR ONE (20:09)
--- NOTE | 2017-05-24 20:44 | History and Physical ---
History & Physical Date & Time of Service: May 24, 2017 at 20:37 Chief Complaint: Left Knee, Arm, Hip & Back Pain From Fall Primary Care Physician: Arpit Osman III, M.D. History of Present Illness Source: patient, clinic records This is a 61yo F with a PMH of bipolar disorder, borderline personality disorder , HTN and fibromyalgia who presents after a fall last night. The patient remembers walking into the kitchen around 8pm to get something to eat. The next thing she recalls is waking up on her back hours later on the floor by the sink. Does not remember any abnormal event proceeding her loss of consciousness , such as lightheadedness, CP, trauma etc. Does not know how long she was unconscious. Upon waking, she noticed that she had wet herself and that her whole body was in pain. Tried to stand up but reports being in too much pain. Was able to scoot and crawl to her bedroom and went back to sleep. When she woke up in the AM, noticed that she had wet herself again. Called her first assistant manager , Brandon, who then called an ambulance. Patient denies any history of syncope, seizures or heart disease. Reports aching pain on entire L side, most specifically her L hip, knee and inner thigh. Denies headache, visual changes, CP, SOB, abd pain, nausea/vomiting, dysuria, dark urine or weakness in extremities. Is on cefuroxime for a sinus infection. Reports taking all of her PM meds prior to the fall (includes tramadol, gabapentin, metaxalone and topiramate). Past Medical/Surgical History Medical Problems: (1) Bipolar disorder Status: Chronic (2) Depression Status: Chronic (3) Fibromyalgia Status: Chronic (4) HTN (hypertension) Status: Chronic Surgical Problems: (1) H/O inguinal hernia repair Status: Chronic (2) History of back surgery Status: Chronic (3) Status post total hip replacement, left Status: Chronic Family History Cancer FH: heart disease FHx: lung disease Hypertension Social History Smoking Status: Former Smoker Drug Use: none Marital Status: Occupational Status: retired, disabled Immunizations History of Tetanus Vaccine?: Yes Tetanus Immunization Date: Jan 18, 2012 History of Pneumococcal: Yes Pneumococcal Date: Aug 06, 2010 Multi-Drug Resistant Organisms History of MDRO: No Allergies Coded Allergies: Cyclobenzaprine (Verified Allergy, Intermediate, RASH AND SWELLING, ) Fentanyl (Verified Allergy, Unknown, MAJOR FEET SWELLING, 05/24/17) Oxcarbazepine (Verified Allergy, Unknown, UNKNOWN - PT DOESN'T REMEMBER, 05/24/17) Risperidone (Verified Adverse Reaction, Intermediate, exhaustion, 05/24/17) Clonazepam (Verified Adverse Reaction, Mild, nausea, 05/24/17) Home Medications Scheduled Calcium Citrate-Vitamin D (Citracal + D3 Maximum), 1 TAB PO BID Cefuroxime Axetil (Cefuroxime Axetil), 500 MG PO BID Chlorthalidone (Hygroton), 25 MG PO QAM Diltiazem Hcl Coated Beads (Cardizem La), 120 MG PO QAM Duloxetine HCl (Cymbalta), 1 CAP PO QAM Duloxetine Hcl (Cymbalta), 60 MG PO QAM Ferrous Sulfate (Kp Ferrous Sulfate), 1 TAB PO BID Gabapentin (Neurontin), 4 CAP PO TID Levothyroxine Sodium (Synthroid), 50 MCG PO QAM Losartan Potassium (Cozaar), 100 MG PO QAM Lurasidone Hcl (Latuda), 20 MG PO HS Meloxicam (Mobic), 7.5 MG PO BID Metaxalone (Skelaxin), 800 MG PO QID Omeprazole (Prilosec), 20 MG PO BID Potassium Ext Rel (Klor-Con), 20 MEQ PO QAM Prednisone (Prednisone), 5 MG PO QAM Topiramate (Topamax), 150 MG PO HS Triamcinolone Acet (Triamcinolone Acetonide), 1 APPLN TOP BID [[employer]], 1 CAP PO QAM Scheduled PRN Acetaminophen (Tylenol), 2 TAB PO Q4H PRN for Pain Acyclovir Topical (Acyclovir), 1 DOSE EXT DIRECTED PRN for PRN Albuterol Sulfate (Proair Respiclick), 2 PUFFS INH QID PRN for Shortness of Breath Diclofenac Sodium (Topical) (Voltaren 1% Top Gel), 1 DOSE EXT QID PRN for Pain Fluticasone Propionate (Nasal) (Flonase Allergy Relief), 2 SPRAY MEAGAN DAILY PRN for PRN Lorazepam (Ativan), 1 MG PO DAILY PRN for Anxiety Tramadol (Ultram), 2 TAB PO Q6H PRN for Pain Review of Systems Ten systems reviewed and negative except as noted in the HPI. Physical Exam Vital Signs Date Time Temp Pulse Resp B/P (MAP) Pulse Ox O2 Delivery O2 Flow Rate FiO2 05/24/17 20:12 84 18 142/92 97 Room Air 05/24/17 19:17 83 05/24/17 18:30 94 18 154/101 95 Room Air 05/24/17 16:20 36.8 95 20 168/105 98 Room Air General Appearance: WD/WN, no apparent distress (Had a difficult time concentrating during interview. ) Head: normocephalic, atraumatic Eyes: normal inspection, PERRL, EOMI, sclerae normal, + pertinent finding ( Pinpoint pupils ) ENT: normal ENT inspection, hearing grossly normal, pharynx normal (Dry mucous membranes ) Neck: supple, no adenopathy, trachea midline Respiratory/Chest: chest non-tender, lungs clear, normal breath sounds, no respiratory distress, no accessory muscle use Cardiovascular: regular rate, rhythm, no murmur, normal peripheral pulses Abdomen/GI: normal bowel sounds, soft, no organomegaly, + tenderness (diffuse TTP) Back: normal inspection Extremities/Musculoskelatal: no calf tenderness, no pedal edema, + pertinent finding (L knee effusion with small areas of bruising. ROM intact but painful. ) Neurologic/Psych: no motor/sensory deficits, alert, normal mood/affect, oriented x 3, + pertinent finding (Circumstantial speech) Skin: normal color, warm/dry, no rash Diagnostics Laboratory Results Results Past 24 Hours Test 05/24/17 16:30 05/24/17 16:48 05/24/17 20:03 Range/Units White Blood Count 10.25 4.8-10.8 K/uL Red Blood Count 4.47 4.2-5.4 M/uL Hemoglobin 14.6 12.0-16.0 g/dL Hematocrit 41.0 37-47 % Mean Corpuscular Volume 91.7 80-100 fL Mean Corpuscular Hemoglobin 32.7 25-34 pg Mean Corpuscular Hemoglobin Concent 35.6 32-36 g/dl Platelet Count 195 130-400 K/uL Mean Platelet Volume 8.7 7.4-10.4 fL Neutrophils (%) (Auto) 67.4 % Lymphocytes (%) (Auto) 16.3 % Monocytes (%) (Auto) 14.2 % Eosinophils (%) (Auto) 1.0 % Basophils (%) (Auto) 0.6 % Neutrophils # (Auto) 6.91 1.4-6.5 K/uL Lymphocytes # (Auto) 1.67 1.2-3.4 K/uL Monocytes # (Auto) 1.46 0.11-0.59 K/uL Eosinophils # (Auto) 0.10 0-0.5 K/uL Basophils # (Auto) 0.06 0-0.2 K/uL RDW Standard Deviation 41.8 36.4-46.3 fL RDW Coefficient of Variation 12.5 11.5-14.5 % Immature Granulocyte % (Auto) 0.5 % Immature Granulocyte # (Auto) 0.05 0.00-0.02 K/uL Sodium Level 134 136-145 mmol/L Potassium Level 3.1 3.5-5.1 mmol/L Chloride Level 100 98-107 mmol/L Carbon Dioxide Level 23 21-32 mmol/L Anion Gap 11.0 3-11 mmol/L Blood Urea Nitrogen 22 7-18 mg/dl Creatinine 1.22 0.60-1.20 mg/dl Est Creatinine Clear Calc Drug Dose 51.8 ml/min Estimated GFR () 55.0 Estimated GFR (Non- 47.4 BUN/Creatinine Ratio 17.7 10-20 Random Glucose 115 70-99 mg/dl Calcium Level 9.6 8.5-10.1 mg/dl Magnesium Level 2.1 1.8-2.4 mg/dl Total Bilirubin 0.6 0.2-1 mg/dl Direct Bilirubin 0.1 0-0.2 mg/dl Aspartate Amino Transf (AST/SGOT) 323 15-37 U/L Alanine Aminotransferase (ALT/SGPT) 76 12-78 U/L Alkaline Phosphatase 54 45-117 U/L Total Creatine Kinase 40761 26-192 U/L Creatine Kinase MB 20.8 0.5-3.6 ng/ml Creatine Kinase MB Ratio 0.2 0-3.0 Troponin I 0.046 0-0.045 ng/ml Total Protein 6.7 6.4-8.2 gm/dl Albumin 3.2 3.4-5.0 gm/dl Acetaminophen Level 19 10-30 ug/ml Urine Color YELLOW Urine Appearance CLEAR CLEAR Urine pH 5.0 4.5-7.5 Urine Specific [place] 1.036 1.000-1.030 Urine Protein NEG NEG Urine Glucose (UA) NEG NEG Urine Ketones TRACE NEG Urine Occult Blood 2+ NEG Urine Nitrite NEG NEG Urine Bilirubin NEG NEG Urine Urobilinogen NEG NEG Urine Leukocyte Esterase NEG NEG Urine WBC (Auto) 1-5 0-5 /hpf Urine RBC (Auto) 0-4 0-4 /hpf Urine Hyaline Casts (Auto) 5-10 0-5 /lpf Urine Epithelial Cells (Auto) 10-20 0-5 /lpf Urine Bacteria (Auto) NEG NEG Urine Opiates Screen POS NEG Urine Methadone, Qualitative NEG NEG Urine Barbiturates NEG NEG Urine Phencyclidine (PCP) Level NEG NEG Ur Amphetamine/Methamphetamine NEG NEG MDMA (Ecstasy) Screen NEG NEG Urine Benzodiazepines Screen NEG NEG Urine Cocaine Metabolite NEG NEG Urine Marijuana (THC) NEG NEG Ethyl Alcohol mg/dL < 3.0 0-3 mg/dl Diagnostic Radiology CXR: IMPRESSION: No acute cardiopulmonary abnormality. CT head: IMPRESSION: There is no hemorrhage, mass effect, or evidence of acute territorial ischemia by CT criteria. L Femur XR: IMPRESSION: Degenerative and postoperative change. No acute bony abnormality. Hip/Pelvis XR: IMPRESSION: 1. There is no radiographic evidence of acute fracture involving the hips or bony pelvis. 2. A left hip arthroplasty is in near-anatomic alignment. 3. Osteopenia and degenerative change as above. L humerus XR: IMPRESSION: No acute process. Moderate degenerative change left elbow and left shoulder Tibia/fibula XR: IMPRESSION: Degenerative change. Small left knee joint effusion. No acute bony abnormality. EKG Normal sinus rhythm Possible Left atrial enlargement Low voltage QRS Nonspecific ST abnormality No change from prior EKG Impression Assessment and Plan This is a 61yo F with a PMH of bipolar disorder, borderline personality disorder , HTN and fibromyalgia who presents after a fall last night. Rhabdomyolysis: -2/2 fall, lying on ground for unknown period of time -CK elevated to 11,526 -Endorses myalgias -Cr slightly elevated at 1.22 (baseline ~1) -No evidence of compartment syndrome -Pain management -IVF resuscitation -Trend CK, monitor BMP Fall 2/2 syncope: -Unable to recall events surrounding fall -CT head negative, EKG without changes -L humerus, pelvis, femur and tibia/fibula films without acute injury Presence of osteopenia and degenerative changes -Orthostatic vitals -EEG to rule out seizure -Fall precautions -Monitor on tele Elevated troponin: -Likely 2/2 fall -Initial 0.046 -Denies CP, no EKG changes -Trend cardiac enzymes -Monitor on tele HTN: -Continue home cardizem Bipolar disorder: -Stable -Continue topamax, latuda Depression: -Continue cymbalta Hypothyroidism: -Continue levoxyl -TSH wnl Fibromyalgia: -Continue prednisone, metaxalone, gabapentin Osteopenia: -Continue Vit D, calcium DVT Ppx: Heparin SQ Code status: FULL PCP: [facility] Dispo: SW consulted to help with discharge placement. Patient seen in collaboration with Dr. Perez. Please see addendum. Level of Care Telemetry Resuscitation Status FULL RESUSCITATION VTE Prophylaxis VTE Risk Assessment Done? Y/N: Yes Risk Level: Moderate Given or contraindicated: Unfractionated heparin SQ Assessment/Plan IM ATTENDING : Patient seen and examined. History obtained from patient and records. Preceding documentation by Ms. Edelmira Gonzales PA-C reviewed. FINAL ASSESSMENT AND PLAN as follows : 1. Traumatic rhabdomyolysis secondary to fall secondary to unwitnessed syncopal event. 2. Syncope possibly from polypharmacy. (Patient on narcotics, neuropsychotropic and muscle relaxant meds for steroid dependent fibromyalgia) Rule out cardiac dysfunction, seizures, orthostasis as potential etiologies unwitnessed syncopal event 3. hypokalemia secondary to clinical dehydration, home diuretic therapy 4. troponinemia secondary to rhabdomyolysis, ARF 5. Mood disorder stable on current regimen (admits to occasional low episodes due to 's demise from a few months back) 6. diarrhea rule out Clostridium difficile recent antibiotic rx for sinusitis 7. past tobacco abuse 8. LLE pain/swelling secondary to fall rule out deep venous thrombosis PCU mainly for syncope. Follow CPK, creatinine response to IV fluids. Replace potassium. Hold home diuretics for now. LLE Dopplers ro DVT syncope workup. orthostatic VS, 2D echo. EEG. analgesia, judicious narcotic use (resume home Tramadol once seizures definitely ruled out as etio of syncopal event) Utilize NSAIDS once serum creatinine improved. Appropriate hold parameters for home meds w/ potential sedation. stool cdif PT/OT eval. DVT prophylaxis, Heparin subQ. Full code.
[2017-05-24 20:48] LABS: THYROID STIMULATING HORMONE 1.46 uIu/ml (0.300-4.500)
[2017-05-24] MEDS ORDERED: ACETAMINOPHEN 325 MG TAB PO PRN (21:15)
--- NOTE | 2017-05-24 21:36 | DIAGNOSTIC IMAGING REPORT ---
L VENOUS DOPP LOWER EXT UNILAT CLINICAL HISTORY: LLE pain pain. Edema. TECHNIQUE: Venous Doppler COMPARISON STUDY: None FINDINGS: Normal study IMPRESSION: Normal study The above report was generated using voice recognition software. It may contain grammatical, syntax or spelling errors. Electronically signed by: Mauricio Donnelly M.D. 05/24/2017 9:34 PM Dictated Date/Time: 05/24/2017 9:34 PM
[2017-05-24] MEDS ORDERED: LURASIDONE HCL 40 MG TAB PO SCH (21:59)
[2017-05-24] MEDS: OXYCODONE/ACETAMINOPHEN 5-325 TAB PO PRN (22:05)
[2017-05-24 22:08] VITALS: BP 162/98; PULSE 77; TEMP 36.9; O2SAT 100; Ht 170.2 cm; Wt 78.0 kg
[2017-05-24] MEDS: NSS + 20MEQ KCL 1000ML 1,000 ML IV SCH (22:52)
[2017-05-24 23:31] LABS: INR 0.9 (0.9-1.1); PARTIAL THROMBOPLASTIN RATIO 1.1; PROTHROMBIN TIME (PATIENT) 10.1 SECONDS (9.0-12.0)
[2017-05-25] VITALS (11 sets, daily range): BP systolic 132–158; BP diastolic 80–97; PULSE 70–80; TEMP 36.5–37; O2SAT 96–100
[2017-05-25] MEDS: HYDROmorphone INJ 0.5 MG/0.5 ML SYR IV PRN ×6 (00:13→23:56)
[2017-05-25] MEDS ORDERED: TOPIRAMATE 100 MG TAB PO ONE (00:21)
[2017-05-25] MEDS ORDERED: LURASIDONE HCL 40 MG TAB PO ONE (00:21)
[2017-05-25] MEDS: NSS + 20MEQ KCL 1000ML 1,000 ML IV SCH ×5 (03:12→23:44)
[2017-05-25] MEDS: LEVOTHYROXINE 50 MCG TAB PO SCH (05:49)
[2017-05-25] MEDS: OXYCODONE/ACETAMINOPHEN 5-325 TAB PO PRN ×5 (05:49→22:34)
[2017-05-25] MEDS: HEPARIN SOD 5000 UNIT/0.5 ML CARP SQ SCH ×3 (05:51→22:06)
[2017-05-25 06:07] LABS: HEMATOCRIT 34.8 % (37-47); MEAN CELL VOLUME 93.8 fL (80-100); MEAN CORPUSCULAR HEMOGLOBIN 32.9 pg (25-34); MEAN CORPUSCULAR HGB CONC 35.1 g/dl (32-36); MEAN PLATELET VOLUME 8.7 fL (7.4-10.4); PLATELET COUNT 152 K/uL (130-400); RED BLOOD COUNT 3.71 M/uL (4.2-5.4); WHITE BLOOD COUNT 6.93 K/uL (4.8-10.8)
[2017-05-25 06:31] LABS: BASO % 0.6 %; BASO ABS # 0.04 K/uL (0-0.2); COMPLETE YES; EOS % 1.6 %; IG% 0.7 %; LYMPH % 15.4 %; LYMPH ABS # 1.07 K/uL (1.2-3.4); MONO % 13.9 %; NEUT % 67.8 %
[2017-05-25 06:40] LABS: BUN/CREATININE RATIO 20.2 (10-20); CALCIUM 8.8 mg/dl (8.5-10.1); CREATININE 0.83 mg/dl (0.60-1.20); POTASSIUM 3.5 mmol/L (3.5-5.1)
--- NOTE | 2017-05-25 06:54 | HISTORY & PHYSICAL EXAMINATION ---
DATE OF ADMISSION: 05/24/2017 IM ATTENDING : Patient seen and examined. History obtained from patient and records. Preceding documentation by Ms. Edelmira Gonzales PA-C reviewed. FINAL ASSESSMENT AND PLAN as follows : 1. Traumatic rhabdomyolysis secondary to fall secondary to unwitnessed syncopal event. 2. Syncope possibly from polypharmacy. (Patient on narcotics, neuropsychotropic and muscle relaxant meds for steroid dependent fibromyalgia) Rule out cardiac dysfunction, seizures, orthostasis as potential etiologies unwitnessed syncopal event 3. hypokalemia secondary to clinical dehydration, home diuretic therapy 4. troponinemia secondary to rhabdomyolysis, ARF 5. Mood disorder stable on current regimen (admits to occasional low episodes due to 's demise from a few months back) 6. diarrhea rule out Clostridium difficile recent antibiotic rx for sinusitis 7. past tobacco abuse 8. LLE pain/swelling secondary to fall rule out deep venous thrombosis PCU mainly for syncope. Follow CPK, creatinine response to IV fluids. Replace potassium. Hold home diuretics for now. LLE Dopplers ro DVT syncope workup. orthostatic VS, 2D echo. EEG. analgesia, judicious narcotic use (resume home Tramadol once seizures definitely ruled out as etio of syncopal event) Utilize NSAIDS once serum creatinine improved. Appropriate hold parameters for home meds w/ potential sedation. stool cdif PT/OT eval. DVT prophylaxis, Heparin subQ. Full code. MTDD
[2017-05-25] MEDS: GABAPENTIN 300 MG CAP PO SCH ×3 (07:29→22:04)
[2017-05-25] MEDS: FERROUS SULFATE 325 MG TAB PO SCH ×2 (07:30→22:00)
[2017-05-25] MEDS: DULOXETINE HCL 60 MG CAP PO SCH (07:30)
[2017-05-25] MEDS: DULOXETINE (CYMBALTA) 30 MG CAP PO SCH (07:31)
[2017-05-25] MEDS: PANTOprazole SOD 40 MG TAB PO SCH ×2 (07:31→22:01)
[2017-05-25] MEDS: METAXALONE 800 MG TAB PO SCH ×4 (07:32→22:03)
[2017-05-25] MEDS: DILTIAZEM HCL 120 MG CAPCR PO SCH (08:25)
--- NOTE | 2017-05-25 09:55 | ECHOCARDIOGRAM REPORT ---
*NOTICE TO RECEIVING REPUBLICAN AGENCY This information is strictly Confidential and protected under [place] law. [place] law prohibits you from making any further disclosure of this information unless further disclosure is expressly permitted by the written consent of the person to whom it pertains or is authorized by law. A general authorization for the release of medical or other information is not sufficient for this purpose. Hospital accepts no responsibility if the information is made available to any other person, INCLUDING THE PATIENT. Interpretation Summary * Name: GERA RONDON Study Date: 05/25/2017 06:38 AM BP: 138/85 mmHg * Patient Location: C.2T\S\E216\S\1 HR: 78 * : 1955 (M/d/yyyy) Gender: Female Height: 67 in * Age: 61 yrs Ethnicity: CA Weight: 174 lb * Ordering Physician: Dexter Perez * Referring Physician: Self, Referred * Performed By: Maricruz Issa RCS * * Reason For Study: SYNCOPE * BSA: 1.9 m2 * -- Conclusions -- * Small LV chamber size with mild concentric LVH. * Normal LV systolic function, EF 60-65%. * No segmental left ventricular wall motion abnormalities are noted. * Grade I diastolic dysfunction. * No significant valvular pathology. Procedure Details * A complete two-dimensional transthoracic echocardiogram was performed (2D, M-mode, Doppler and color flow Doppler). Left Ventricle * The left ventricular cavity is small. * There is mild concentric left ventricular hypertrophy. * Left ventricular systolic function is normal. * No segmental left ventricular wall motion abnormalities are noted. * Ejection Fraction = 60-65%. * The left ventricular wall motion is normal. Right Ventricle * The right ventricular cavity size is normal (basal dimension <4.2 cm in right ventricular apical 4-chamber view). * The right ventricular systolic function is normal as assessed by tricuspid annular plane systolic excursion (TAPSE) (normal >1.5 cm). Atria * The left atrial size is normal. * Right atrial size is normal. * No ASD detected; PFO is not assessed. Mitral Valve * The mitral valve leaflets appear thickened, but open well. * There is no mitral valve stenosis. * There is no mitral regurgitation noted. Tricuspid Valve * The tricuspid valve is normal in structure and function. Aortic Valve * The aortic valve is normal in structure and function. Pulmonic Valve * The pulmonary valve is not well seen, but the Doppler examination is normal without significant regurgitation or stenosis. Great Vessels * The aortic root and proximal ascending aorta are normal sized. Pericardium/Pleural * There is no pericardial effusion. Left Ventricular Diastolic Function * Grade I diastolic dysfunction, (abnormal relaxation pattern). MMode 2D Measurements and Calculations IVSd 1.1 cm IVSs 1.3 cm LVIDd 3.6 cm LVIDs 2.2 cm LVPWd 1.1 cm LVPWs 1.1 cm IVS/LVPW 1.0 FS 38.7 % EDV(Teich) 52.8 ml ESV(Teich) 15.8 ml EF(Teich) 70.0 % EDV(cubed) 45.0 ml ESV(cubed) 10.4 ml EF(cubed) 77.0 % % IVS thick 19.8 % % LVPW thick 0.94 % LV mass(C)d 121.4 grams LV mass(C)dI 63.7 grams/m\S\2 LV mass(C)s 73.1 grams LV mass(C)sI 38.3 grams/m\S\2 SV(Teich) 37.0 ml SI(Teich) 19.4 ml/m\S\2 SV(cubed) 34.6 ml SI(cubed) 18.2 ml/m\S\2 LVOT diam 2.0 cm LVOT area 3.0 cm\S\2 LVAd ap4 26.8 cm\S\2 LVLd ap4 8.0 cm EDV(MOD-sp4) 75.8 ml EDV(sp4-el) 76.3 ml LVAs ap4 18.3 cm\S\2 LVLs ap4 6.9 cm ESV(MOD-sp4) 41.0 ml ESV(sp4-el) 41.4 ml EF(MOD-sp4) 45.9 % EF(sp4-el) 45.7 % LVAd ap2 31.2 cm\S\2 LVLd ap2 8.0 cm EDV(MOD-sp2) 104.4 ml EDV(sp2-el) 103.0 ml LVAs ap2 22.3 cm\S\2 LVLs ap2 7.4 cm ESV(MOD-sp2) 57.4 ml ESV(sp2-el) 57.5 ml EF(MOD-sp2) 45.0 % EF(sp2-el) 44.1 % LVLd %diff 0.44 % EDV(MOD-bp) 88.8 ml LVLs %diff 6.8 % ESV(MOD-bp) 49.7 ml EF(MOD-bp) 44.0 % SV(MOD-sp4) 34.8 ml SI(MOD-sp4) 18.3 ml/m\S\2 SV(MOD-sp2) 47.0 ml SI(MOD-sp2) 24.6 ml/m\S\2 SV(MOD-bp) 39.1 ml SI(MOD-bp) 20.5 ml/m\S\2 SV(sp4-el) 34.8 ml SI(sp4-el) 18.3 ml/m\S\2 SV(sp2-el) 45.4 ml SI(sp2-el) 23.8 ml/m\S\2 Doppler Measurements and Calculations MV E max geovanni 96.5 cm/sec MV A max geovanni 112.7 cm/sec MV E/A 0.86 MV P1/2t max geovanni 110.2 cm/sec MV P1/2t 66.4 msec MVA(P1/2t) 3.3 cm\S\2 MV dec slope 485.8 cm/sec\S\2 MV dec time 0.24 sec Ao V2 max 179.7 cm/sec Ao max PG 12.9 mmHg Ao max PG (full) 4.3 mmHg PACO(V,A) 2.5 cm\S\2 PACO(V,D) 2.5 cm\S\2 LV V1 max PG 8.6 mmHg LV V1 max 146.7 cm/sec TR max geovanni 261.9 cm/sec
--- NOTE | 2017-05-25 17:19 | Progress Note ---
Medicine Progress Note Date & Time of Visit: May 25, 2017 at 17:19. Subjective Patient frustrated by pain and the amount of interruptions she has in the hospital; states she was turning people away because it was not convenient for her at times. Has pain all over related to the fall in addition to her usual fibromyalgia pain. No overnight events noted. Tolerating PO. Objective Last 8 Hrs Date Time Temp Pulse Resp B/P (MAP) Pulse Ox O2 Delivery O2 Flow Rate FiO2 05/25/17 16:00 96 Room Air 05/25/17 15:39 36.8 70 18 152/85 (107) 96 Room Air 05/25/17 11:30 Room Air 05/25/17 11:05 36.8 78 18 148/80 (102) 98 Room Air 05/25/17 11:02 37.0 79 18 99 05/25/17 11:01 37.0 79 18 158/97 (117) 99 Room Air 05/25/17 09:52 100 Room Air Physical Exam: GENERAL: Patient is in no acute distress. HEENT: No acute trauma, normocephalic atraumatic, mucous membranes moist, no nasal congestion, no scleral icterus. NECK: No stridor, trachea is midline. LUNGS: Clear to auscultation bilaterally, no wheeze, no rhonchi, breath sounds equal. HEART: Without murmurs gallops or rubs, regular rate and rhythm. ABDOMEN: Soft, nontender, bowel sounds positive EXTREMITIES: No cyanosis or edema, full range of motion of all the joints with pain "all over", few bruises on left side and knee NEUROLOGIC: Oriented x 3, no acute motor or sensory deficits, no focal weakness. SKIN: No rash, no jaundice, no diaphoresis. Laboratory Results: Last 24 Hours Test 05/24/17 20:03 05/24/17 22:52 05/25/17 05:40 Troponin I 0.037 ng/ml Thyroid Stimulating Hormone (TSH) 1.460 uIu/ml Ethyl Alcohol mg/dL < 3.0 mg/dl Prothrombin Time 10.1 SECONDS Prothromb Time International Ratio 0.9 Activated Partial Thromboplast Time 27.7 SECONDS Partial Thromboplastin Ratio 1.1 White Blood Count 6.93 K/uL Red Blood Count 3.71 M/uL Hemoglobin 12.2 g/dL Hematocrit 34.8 % Mean Corpuscular Volume 93.8 fL Mean Corpuscular Hemoglobin 32.9 pg Mean Corpuscular Hemoglobin Concent 35.1 g/dl Platelet Count 152 K/uL Mean Platelet Volume 8.7 fL Neutrophils (%) (Auto) 67.8 % Lymphocytes (%) (Auto) 15.4 % Monocytes (%) (Auto) 13.9 % Eosinophils (%) (Auto) 1.6 % Basophils (%) (Auto) 0.6 % Neutrophils # (Auto) 4.70 K/uL Lymphocytes # (Auto) 1.07 K/uL Monocytes # (Auto) 0.96 K/uL Eosinophils # (Auto) 0.11 K/uL Basophils # (Auto) 0.04 K/uL RDW Standard Deviation 43.2 fL RDW Coefficient of Variation 12.7 % Immature Granulocyte % (Auto) 0.7 % Immature Granulocyte # (Auto) 0.05 K/uL Sodium Level 136 mmol/L Potassium Level 3.5 mmol/L Chloride Level 104 mmol/L Carbon Dioxide Level 27 mmol/L Anion Gap 5.0 mmol/L Blood Urea Nitrogen 17 mg/dl Creatinine 0.83 mg/dl Est Creatinine Clear Calc Drug Dose 75.6 ml/min Estimated GFR () 87.6 Estimated GFR (Non- 75.6 BUN/Creatinine Ratio 20.2 Random Glucose 108 mg/dl Calcium Level 8.8 mg/dl Total Creatine Kinase 7742 U/L Assessment & Plan Rhabdomyolysis: -related to fall and lying on the ground for unknown period of time -CK elevated to 11,526-->7000s today -complains of ongoing myalgias mostly in legs/thighs -Cr slightly elevated at 1.22 (baseline ~1), now trending down to 0.83 -no evidence of compartment syndrome -US negative -PRN analgesia -IV fluids with potassium supplement -monitor lytes and renal function Fall, Possible Syncope: -patient does not recall events surrounding why/how she fell, unknown how long she was down, +LOC -CT head negative -EKG without changes -L humerus, pelvis, femur and tibia/fibula films without acute fracture/ dislocations, + presence of osteopenia and degenerative changes -Orthostatic vitals negative -EEG to rule out seizure -TTE ordered -no events on tele -fall precautions Elevated troponin: -likely related to fall -Initial 0.046, repeat decreased to 0.036 -Denies CP, no EKG changes -no events on tele -TTE ordered HTN: -continue home cardizem Bipolar disorder: -stable -continue topamax, latuda Depression: -continue cymbalta Hypothyroidism: -continue levoxyl -TSH normal Fibromyalgia: -continue prednisone, metaxalone, gabapentin Osteopenia: -continue Vit D, calcium Current Inpatient Medications: Current Inpatient Medications Medications (Trade) Dose Ordered Sig/Yovany Route Start Time Stop Time Status Last Admin Dose Admin Heparin Sodium (Porcine) (Heparin Sq 5000 Unit/0.5ml) 5,000 unit Q8H SQ 05/25/17 06:00 06/24/17 05:59 05/25/17 13:21 5,000 UNIT Acetaminophen (Tylenol Tab) 325 mg Q6H PRN PO 05/24/17 21:15 06/23/17 21:14 Hydromorphone HCl (Dilaudid Inj) 0.25 mg Q4H PRN IV 05/24/17 21:15 06/07/17 21:14 05/25/17 14:38 0.25 MG Duloxetine HCl (Cymbalta Cap) 30 mg QAM PO 05/25/17 09:00 06/24/17 08:59 05/25/17 07:31 30 MG Duloxetine HCl (Cymbalta Cap) 60 mg QAM PO 05/25/17 09:00 06/24/17 08:59 05/25/17 07:30 60 MG Gabapentin (Neurontin Cap) 1,200 mg TID PO 05/25/17 09:00 06/24/17 08:59 05/25/17 13:19 1,200 MG Levothyroxine Sodium (Synthroid Tab) 50 mcg DAILYBB PO 05/25/17 06:00 06/24/17 05:59 05/25/17 05:49 50 MCG Metaxalone (Skelaxin Tab) 800 mg QID PO 05/25/17 09:00 06/24/17 08:59 05/25/17 16:55 800 MG Prednisone (PredniSONE TAB) 5 mg QAM PO 05/25/17 09:00 06/24/17 08:59 05/25/17 07:31 5 MG Topiramate (Topamax Tab) 150 mg HS PO 05/25/17 21:00 06/24/17 20:59 Diltiazem HCl (Cardizem Cd Cap) 120 mg QAM PO 05/25/17 09:00 06/24/17 08:59 05/25/17 08:25 120 MG Ferrous Sulfate (Feosol Tab) 325 mg BID PO 05/25/17 09:00 06/24/17 08:59 05/25/17 07:30 325 MG Pantoprazole Sodium (Protonix Tab) 40 mg BID PO 05/25/17 09:00 06/24/17 08:59 05/25/17 07:31 40 MG Oxycodone/ Acetaminophen (Percocet 5-325mg Tab) pain not relieved by tylenol Q4H PRN PO 05/24/17 21:15 06/07/17 21:14 05/25/17 14:15 2 TAB Lurasidone HCl (Latuda Tab) 20 mg HS PO 05/25/17 21:00 06/23/17 21:58 Potassium Chloride/Sodium Chloride 1,000 ml @ 200 mls/hr Q5H IV 05/25/17 14:15 05/26/17 14:14 05/25/17 14:31 200 MLS/HR
[2017-05-25] MEDS ORDERED: NURSING VERBAL MED ORDER ONE (18:30)
[2017-05-25] MEDS ORDERED: HYDROCORTISONE 1% CR 30 GM TUBE EXT PRN (19:45)
[2017-05-25] MEDS: LURASIDONE HCL 40 MG TAB PO SCH (21:00)
[2017-05-25] MEDS: TOPIRAMATE 100 MG TAB PO SCH (22:01)
[2017-05-26] VITALS: BP 121/68; PULSE 66; TEMP 36.7; O2SAT 97
[2017-05-26] MEDS: NSS + 20MEQ KCL 1000ML 1,000 ML IV SCH ×2 (04:40→09:47)
[2017-05-26] MEDS: OXYCODONE/ACETAMINOPHEN 5-325 TAB PO PRN ×4 (05:09→19:28)
[2017-05-26] MEDS: LEVOTHYROXINE 50 MCG TAB PO SCH (05:10)
[2017-05-26] MEDS: HEPARIN SOD 5000 UNIT/0.5 ML CARP SQ SCH ×3 (05:10→22:16)
[2017-05-26] MEDS: HYDROmorphone INJ 0.5 MG/0.5 ML SYR IV PRN ×3 (07:36→20:57)
[2017-05-26] MEDS: FERROUS SULFATE 325 MG TAB PO SCH ×2 (07:40→20:58)
[2017-05-26] MEDS: DULOXETINE (CYMBALTA) 30 MG CAP PO SCH (07:40)
[2017-05-26] MEDS: DILTIAZEM HCL 120 MG CAPCR PO SCH (07:40)
[2017-05-26] MEDS: DULOXETINE HCL 60 MG CAP PO SCH (07:40)
[2017-05-26] MEDS: PANTOprazole SOD 40 MG TAB PO SCH ×2 (07:41→21:00)
[2017-05-26] MEDS: METAXALONE 800 MG TAB PO SCH ×4 (07:41→20:57)
[2017-05-26] MEDS: GABAPENTIN 300 MG CAP PO SCH ×3 (07:41→21:00)
[2017-05-26 07:50] VITALS: BP 140/75; PULSE 75; TEMP 36.7; O2SAT 96
[2017-05-26 09:01] LABS: BUN/CREATININE RATIO 11.5 (10-20); CREATININE 0.7 mg/dl (0.60-1.20); POTASSIUM 4.1 mmol/L (3.5-5.1)
[2017-05-26] MEDS: CEFUROXIME AXETIL 500 MG TAB PO SCH ×2 (11:48→20:58)
[2017-05-26] MEDS: SODIUM CHLOR 0.45% + 20MEQ KCL 1,000 ML IV SCH ×2 (11:48→18:10)
[2017-05-26] MEDS: POLYETHYLENE (MIRALAX) 17 GM PACK PO SCH (11:48)
[2017-05-26] MEDS ORDERED: LORAZEPAM 0.5 MG TAB PO STA (13:58)
[2017-05-26] MEDS ORDERED: LORAZEPAM 0.5 MG TAB ONE (14:02)
--- NOTE | 2017-05-26 15:07 | DIAGNOSTIC IMAGING REPORT ---
LUMBAR SPINE COMBINATION HISTORY: Pain. Weakness. Neuropathy. bilateral LE weakness TECHNIQUE: Multiplanar multisequence MRI of the lumbar spine was performed both before and after the intravenous administration of contrast. COMPARISON: None. FINDINGS: For the purpose of the report the L5-S1 disc space will be located on axial image 27 of 30. This study is of very limited diagnostic in motility due to severe artifact from laminectomies and fusions throughout the entire lumbar lobe thoracic spine. Localized magnetic susceptibility artifact severely compromises detail. The sagittal fast spin-echo T2 images suggests that a major compromise of the spinal canal is not present. There may be mild narrowing of the spinal canal at the L5 level. There does not appear to be a major component of disc herniation. There is a grade 1 anterolisthesis of S1 on S2 felt to be secondary to old posttraumatic change. Signal characteristics of the osseous structures at this site do not suggest a reactive bone marrow edema. Within limitations, the neuroforamina are grossly patent bilaterally at all levels. L1-L2: Nondiagnostic transaxial images L2-L3: Nondiagnostic transaxial images L3-L4: Nondiagnostic transaxial images L4-L5: Nondiagnostic transaxial images L5-S1: Nondiagnostic transaxial images. Suggestion of a moderate osteophytic narrowing of the neuroforamina bilaterally. IMPRESSION: 1. Nondiagnostic and/or near nondiagnostic exam due to considerable metallic artifact. 2. Based on the sagittal images alone there is no major compromise of the spinal canal or neural foramina. 3. Possible mild narrowing of the neuroforamina bilaterally on an osteophytic bases L5-S1. 4. Postcontrast images show no significant postcontrast enhancement again within severe limitations of metallic artifact. The above report was generated using voice recognition software. It may contain grammatical, syntax or spelling errors. Electronically signed by: Mauricio Donnelly M.D. 05/26/2017 3:06 PM Dictated Date/Time: 05/26/2017 3:01 PM
[2017-05-26 15:36] VITALS: BP 128/79; PULSE 68; TEMP 36.6; O2SAT 97
[2017-05-26] MEDS ORDERED: LIDOCAINE HCL 0.5% 50 ML SDV INFIL ONE (15:45)
[2017-05-26] MEDS ORDERED: ETHYL CHLORIDE AER SPR 100 ML CAN EXT SCH (15:45)
[2017-05-26 16:00] VITALS: O2SAT 97
--- NOTE | 2017-05-26 18:19 | ORTHOPEDIC CONSULTATION ---
DATE OF CONSULTATION: 05/24/2017 HISTORY OF PRESENT ILLNESS: The patient is a 61-year-old female who was admitted with rhabdomyolysis. She upon questioning was on the floor. She does not know the time she was on the floor. She apparently had a fall, but she does not have memories of the event. She was admitted to the medical service with what felt to be a syncopal episode unwitnessed. She does have a history of fibromyalgia. Currently diagnosed with acute renal failure and hypokalemia. She was having some left leg pain reason for consult. She does have a history of a left total hip replacement by Dr. Duckworth. She is on multiple medications for her fibromyalgia and she sees a coat padder on a regular basis. She last had an injection May 07 where she gets routine injections every 3 months in her knees. She has known osteoarthritis in both of her knees. Her right knee has always felt even worse than her left according to her. Her current problem she had a little bit difficulty with raising her left leg and having some soreness in her knee, but no excruciating pain at this time. MEDICATIONS: She is on multiple medications including Ceftin, potassium chloride, Topamax, Latuda, Cymbalta, Neurontin, Skelaxin, prednisone, Cardizem, iron. She is on heparin only since the hospital, Synthroid, Dilaudid, Percocet. She is not on any regular blood thinners. REVIEW OF SYSTEMS: Otherwise noncontributory. PHYSICAL EXAMINATION: Demonstrates that she has a little bit more swelling in her left leg in general more edema than right. She has a valgus alignment of her right knee and a varus alignment to her left knee. Left hip was not painful with range of motion and stable with 90 degrees of flexion. Left knee, she had 0-100 degrees range of motion, some soreness with range of motion, no gross instability or crepitation. She has no bruising. She does have a moderately large knee effusion on the left. Right knee, she has less of a knee effusion. She has a valgus knee. She has lateral joint line tenderness and exam consistent with lateral compartment osteoarthritis. Her lower extremity circulation was normal. On neurological exam, no significant weakness or deficits. IMAGING DATA: Her multiple radiographs demonstrated negative tibia and fibula x-ray for fracture and negative pelvis x-ray for fracture. She has a well-aligned, stable left total hip replacement. She has left knee x-rays of both femoral and tibial films reviewed demonstrates she has tricompartmental DJD mainly patellofemoral joint, medial compartment with close to if not [id number] in medial compartment and significant narrowing of the patellofemoral joint on lateral view and calcifications in the posterior joint, all consistent with chronic degenerative arthritis. No acute fractures are identified. ASSESSMENT: Aggravations of osteoarthritis of the left knee. Treatment is conservative management. Ice recommended. I discussed with that we could aspirate the knee for pain relief. We could also see if there is any bleeding internally by aspiration. PLAN: We did inject some lidocaine for pain if we cannot inject the steroids as she has had a recent steroid injection over the last 3 weeks and it is not really indicated to do a steroid injection for at any least 3 weeks and likely, she should hold off if possible and continue with her every 3-month injections. Thank you for this consult.
--- NOTE | 2017-05-26 19:30 | Progress Note ---
Medicine Progress Note Date & Time of Visit: May 26, 2017 at 19:30. Subjective Patient still reports having a great deal of pain in her legs, states she is worried and feels she is not being evaluated thoroughly. No other complaints noted at this time. Tolerating PO. has been trying to increase her activity in her bed. No overnight events noted. Objective Last 8 Hrs Date Time Temp Pulse Resp B/P (MAP) Pulse Ox O2 Delivery O2 Flow Rate FiO2 05/26/17 16:00 97 Room Air 05/26/17 15:36 36.6 68 20 128/79 (95) 97 Room Air Physical Exam: GENERAL: Patient is in no acute distress. HEENT: No acute trauma, normocephalic atraumatic, mucous membranes moist, no nasal congestion, no scleral icterus. NECK: No stridor, trachea is midline. LUNGS: Clear to auscultation bilaterally, no wheeze, no rhonchi, breath sounds equal. HEART: Without murmurs gallops or rubs, regular rate and rhythm. ABDOMEN: Soft, nontender, bowel sounds positive EXTREMITIES: No cyanosis or edema, full range of motion of all the joints with pain "all over", few bruises on left side and knee NEUROLOGIC: Oriented x 3, no acute motor or sensory deficits, no focal weakness. SKIN: No rash, no jaundice, no diaphoresis. Laboratory Results: Last 24 Hours Test 05/26/17 08:16 Sodium Level 139 mmol/L Potassium Level 4.1 mmol/L Chloride Level 108 mmol/L Carbon Dioxide Level 26 mmol/L Anion Gap 4.0 mmol/L Blood Urea Nitrogen 8 mg/dl Creatinine 0.70 mg/dl Est Creatinine Clear Calc Drug Dose 89.7 ml/min Estimated GFR () 107.6 Estimated GFR (Non- 92.9 BUN/Creatinine Ratio 11.5 Random Glucose 115 mg/dl Calcium Level 9.0 mg/dl Total Creatine Kinase 5615 U/L Assessment & Plan Rhabdomyolysis: -related to fall and lying on the ground for unknown period of time -CK elevated but trending down to 11,526-->7000s-->5000's today -complains of ongoing myalgias mostly in legs/thighs -Cr slightly elevated at 1.22 (baseline ~1), now trending down to 0.79 -no evidence of compartment syndrome -US negative -PRN analgesia -IV fluids with potassium supplement continued -monitor lytes and renal function Fall, Possible Syncope: -patient does not recall events surrounding why/how she fell, unknown how long she was down, +LOC -CT head negative -EKG without changes -L humerus, pelvis, femur and tibia/fibula films without acute fracture/ dislocations, + presence of osteopenia and degenerative changes -Orthostatic vitals negative -EEG to rule out seizure -TTE EF 60-65% -no events on tele -fall precautions -MRI lumbar spine ordered to evaluate as patient with prior spinal surgery and pain only to bilateral thighs -will also consult Ortho regarding knee pain and effusion noted on x ray Elevated troponin: -likely related to fall -Initial 0.046, repeat decreased to 0.036 -Denies CP, no EKG changes -no events on tele -TTE without any wall motion abnormality; EF 60-65% HTN: -continue home cardizem Bipolar disorder: -stable -continue topamax, latuda Depression: -continue cymbalta Hypothyroidism: -continue levoxyl -TSH normal Fibromyalgia: -continue prednisone, metaxalone, gabapentin Osteopenia: -continue Vit D, calcium Current Inpatient Medications: Current Inpatient Medications Medications (Trade) Dose Ordered Sig/Yovany Route Start Time Stop Time Status Last Admin Dose Admin Heparin Sodium (Porcine) (Heparin Sq 5000 Unit/0.5ml) 5,000 unit Q8H SQ 05/25/17 06:00 06/24/17 05:59 05/26/17 15:33 5,000 UNIT Acetaminophen (Tylenol Tab) 325 mg Q6H PRN PO 05/24/17 21:15 06/23/17 21:14 Hydromorphone HCl (Dilaudid Inj) 0.25 mg Q4H PRN IV 05/24/17 21:15 06/07/17 21:14 05/26/17 11:48 0.25 MG Duloxetine HCl (Cymbalta Cap) 30 mg QAM PO 05/25/17 09:00 06/24/17 08:59 05/26/17 07:40 30 MG Duloxetine HCl (Cymbalta Cap) 60 mg QAM PO 05/25/17 09:00 06/24/17 08:59 05/26/17 07:40 60 MG Gabapentin (Neurontin Cap) 1,200 mg TID PO 05/25/17 09:00 06/24/17 08:59 05/26/17 15:29 1,200 MG Levothyroxine Sodium (Synthroid Tab) 50 mcg DAILYBB PO 05/25/17 06:00 06/24/17 05:59 05/26/17 05:10 50 MCG Metaxalone (Skelaxin Tab) 800 mg QID PO 05/25/17 09:00 06/24/17 08:59 05/26/17 17:36 800 MG Prednisone (PredniSONE TAB) 5 mg QAM PO 05/25/17 09:00 06/24/17 08:59 05/26/17 07:41 5 MG Topiramate (Topamax Tab) 150 mg HS PO 05/25/17 21:00 06/24/17 20:59 05/25/17 22:01 150 MG Diltiazem HCl (Cardizem Cd Cap) 120 mg QAM PO 05/25/17 09:00 06/24/17 08:59 05/26/17 07:40 120 MG Ferrous Sulfate (Feosol Tab) 325 mg BID PO 05/25/17 09:00 06/24/17 08:59 05/26/17 07:40 325 MG Pantoprazole Sodium (Protonix Tab) 40 mg BID PO 05/25/17 09:00 06/24/17 08:59 05/26/17 07:41 40 MG Oxycodone/ Acetaminophen (Percocet 5-325mg Tab) pain not relieved by tylenol Q4H PRN PO 05/24/17 21:15 06/07/17 21:14 05/26/17 14:19 2 TAB Lurasidone HCl (Latuda Tab) 20 mg HS PO 05/25/17 21:00 06/23/17 21:58 05/25/17 21:00 20 MG Hydrocortisone (Hydrocortisone 1% Crm) 1 appln PRN PRN EXT 05/25/17 19:45 06/24/17 19:44 05/25/17 22:10 1 APPLN Potassium Chloride/Sodium Chloride 1,000 ml @ 150 mls/hr Q6H40M IV 05/26/17 11:30 06/25/17 11:29 05/26/17 18:10 150 MLS/HR Cefuroxime Axetil (Ceftin Tab) 500 mg BID PO 05/26/17 12:00 05/30/17 11:59 05/26/17 11:48 500 MG Polyethylene (Miralax Powder Packet) 17 gm DAILY PO 05/26/17 11:00 06/25/17 10:59 05/26/17 11:48 17 GM Ethyl Chloride (Ethyl Chloride Aerosol) 1 ml [facility]@1545 EXT 05/26/17 15:45 05/26/17 23:59
[2017-05-26] MEDS: LURASIDONE HCL 40 MG TAB PO SCH (20:58)
[2017-05-26] MEDS: TOPIRAMATE 100 MG TAB PO SCH (21:00)
[2017-05-27 00:11] VITALS: BP 148/88; PULSE 67; TEMP 36.8; O2SAT 98
[2017-05-27] MEDS: SODIUM CHLOR 0.45% + 20MEQ KCL 1,000 ML IV SCH ×2 (03:23→10:35)
[2017-05-27] MEDS: LEVOTHYROXINE 50 MCG TAB PO SCH (06:02)
[2017-05-27] MEDS: HEPARIN SOD 5000 UNIT/0.5 ML CARP SQ SCH ×3 (06:10→22:25)
[2017-05-27 07:31] VITALS: BP 161/98; PULSE 75; TEMP 37.1; O2SAT 100
[2017-05-27 07:45] VITALS: BP 161/91; PULSE 77
[2017-05-27] MEDS: GABAPENTIN 300 MG CAP PO SCH ×3 (07:46→20:31)
[2017-05-27] MEDS: OXYCODONE/ACETAMINOPHEN 5-325 TAB PO PRN ×2 (07:46→18:35)
[2017-05-27] MEDS: DILTIAZEM HCL 120 MG CAPCR PO SCH (07:49)
[2017-05-27] MEDS: CEFUROXIME AXETIL 500 MG TAB PO SCH ×2 (07:51→20:31)
[2017-05-27] MEDS: PANTOprazole SOD 40 MG TAB PO SCH ×2 (07:52→20:32)
[2017-05-27] MEDS: FERROUS SULFATE 325 MG TAB PO SCH ×2 (07:52→20:30)
[2017-05-27] MEDS: METAXALONE 800 MG TAB PO SCH ×4 (07:53→20:29)
[2017-05-27] MEDS: DULOXETINE (CYMBALTA) 30 MG CAP PO SCH (07:53)
[2017-05-27] MEDS: DULOXETINE HCL 60 MG CAP PO SCH (07:53)
[2017-05-27] MEDS: POLYETHYLENE (MIRALAX) 17 GM PACK PO SCH (07:56)
[2017-05-27 09:16] LABS: COD UR NEGATIVE NG/ML (CUTOFF=50); HYDROCOD UR NEGATIVE NG/ML (CUTOFF=50); HYDROMOR UR NEGATIVE NG/ML (CUTOFF=50); MORPHINE UR 1610 NG/ML (CUTOFF=50); NORHYDROCODONE CONF UR NEGATIVE NG/ML (CUTOFF=50); OXYMORPH UR NEGATIVE NG/ML (CUTOFF=50)
[2017-05-27] MEDS: HYDROmorphone INJ 0.5 MG/0.5 ML SYR IV PRN ×3 (11:33→22:20)
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
[2017-05-27 13:59] LABS: BUN/CREATININE RATIO 12.6 (10-20); CALCIUM 9.2 mg/dl (8.5-10.1); CREATININE 0.89 mg/dl (0.60-1.20); POTASSIUM 4.6 mmol/L (3.5-5.1)
[2017-05-27 15:38] VITALS: BP 153/97; PULSE 72; TEMP 36.9; O2SAT 98
[2017-05-27 15:55] LABS: BENZODIAZEPINE, URINE NEG (NEG); COCAINE,URINE NEG (NEG); PHENCYCLIDINE, URINE NEG (NEG)
[2017-05-27 16:00] VITALS: O2SAT 98
--- NOTE | 2017-05-27 19:24 | Progress Note ---
Medicine Progress Note Date & Time of Visit: May 27, 2017 at 19:24. Subjective Patient is upset, states she feels as though she is being confronted about morphine in her UDS and is adamant that she had not taken any morphine or similar medications on the day of the fall. She states she did not have a positive experience with Psych and proceeded to recount the entire interview. No overnight events noted. No complaints other than pain in her legs and feeling hurt and angry about the above interaction. Objective Last 8 Hrs Date Time Temp Pulse Resp B/P (MAP) Pulse Ox O2 Delivery O2 Flow Rate FiO2 05/27/17 16:00 98 Room Air 05/27/17 15:38 36.9 72 18 153/97 (115) 98 Room Air Physical Exam: GENERAL: Patient is in no acute distress. HEENT: No acute trauma, normocephalic atraumatic, mucous membranes moist, no nasal congestion, no scleral icterus. NECK: No stridor, trachea is midline. LUNGS: Clear to auscultation bilaterally, no wheeze, no rhonchi, breath sounds equal. HEART: Without murmurs gallops or rubs, regular rate and rhythm. ABDOMEN: Soft, nontender, bowel sounds positive EXTREMITIES: No cyanosis or edema, full range of motion of all the joints with pain "all over", few bruises on left side and knee NEUROLOGIC: Oriented x 3, no acute motor or sensory deficits, no focal weakness. SKIN: No rash, no jaundice, no diaphoresis. Laboratory Results: Last 24 Hours Test 05/27/17 13:08 05/27/17 15:15 Sodium Level 135 mmol/L Potassium Level 4.6 mmol/L Chloride Level 104 mmol/L Carbon Dioxide Level 25 mmol/L Anion Gap 6.0 mmol/L Blood Urea Nitrogen 11 mg/dl Creatinine 0.89 mg/dl Est Creatinine Clear Calc Drug Dose 70.5 ml/min Estimated GFR () 80.5 Estimated GFR (Non- 69.5 BUN/Creatinine Ratio 12.6 Random Glucose 147 mg/dl Calcium Level 9.2 mg/dl Total Creatine Kinase 4182 U/L Urine Opiates Screen NEG Urine Methadone, Qualitative NEG Urine Barbiturates NEG Urine Phencyclidine (PCP) Level NEG Ur Amphetamine/Methamphetamine NEG MDMA (Ecstasy) Screen NEG Urine Benzodiazepines Screen NEG Urine Cocaine Metabolite NEG Urine Marijuana (THC) NEG Assessment & Plan Rhabdomyolysis: -related to fall and lying on the ground for unknown period of time -CK elevated but trending down to 11,526-->7000s-->5000's-->3000's today -complains of ongoing myalgias mostly in legs/thighs -Cr slightly elevated at 1.22 (baseline ~1), now back down to baseline -no evidence to suggest compartment syndrome -US negative -PRN analgesia -IV fluids with potassium supplement initially, now off -monitor lytes and renal function Fall, Possible Syncope: -patient does not recall events surrounding why/how she fell, unknown how long she was down, +LOC -CT head negative -EKG without changes -L humerus, pelvis, femur and tibia/fibula films without acute fracture/ dislocations, + presence of osteopenia and degenerative changes -Orthostatic vitals negative -EEG to rule out seizure -TTE EF 60-65% -no events on tele -fall precautions -MRI lumbar spine ordered to evaluate as patient with prior spinal surgery and pain only to bilateral thighs -will also consult Ortho regarding knee pain and effusion noted on x ray -patient is concerned regarding UDS positive for morphine and adamantly denies taking any narcotic medications except tramadol and ativan; patient requests re- test of UDS Elevated troponin: -likely related to fall -Initial 0.046, repeat decreased to 0.036 -Denies CP, no EKG changes -no events on tele -TTE without any wall motion abnormality; EF 60-65% HTN: -continue home cardizem Bipolar disorder: -stable -continue topamax, latuda Depression: -continue cymbalta Hypothyroidism: -continue levoxyl -TSH normal Fibromyalgia: -continue prednisone, metaxalone, gabapentin Osteopenia: -continue Vit D, calcium Current Inpatient Medications: Current Inpatient Medications Medications (Trade) Dose Ordered Sig/Yovany Route Start Time Stop Time Status Last Admin Dose Admin Heparin Sodium (Porcine) (Heparin Sq 5000 Unit/0.5ml) 5,000 unit Q8H SQ 05/25/17 06:00 06/24/17 05:59 05/27/17 14:01 5,000 UNIT Acetaminophen (Tylenol Tab) 325 mg Q6H PRN PO 05/24/17 21:15 06/23/17 21:14 Hydromorphone HCl (Dilaudid Inj) 0.25 mg Q4H PRN IV 05/24/17 21:15 06/07/17 21:14 05/27/17 16:31 0.25 MG Duloxetine HCl (Cymbalta Cap) 30 mg QAM PO 05/25/17 09:00 06/24/17 08:59 05/27/17 07:53 30 MG Duloxetine HCl (Cymbalta Cap) 60 mg QAM PO 05/25/17 09:00 06/24/17 08:59 05/27/17 07:53 60 MG Gabapentin (Neurontin Cap) 1,200 mg TID PO 05/25/17 09:00 06/24/17 08:59 05/27/17 13:59 1,200 MG Levothyroxine Sodium (Synthroid Tab) 50 mcg DAILYBB PO 05/25/17 06:00 06/24/17 05:59 05/27/17 06:02 50 MCG Metaxalone (Skelaxin Tab) 800 mg QID PO 05/25/17 09:00 06/24/17 08:59 05/27/17 17:20 800 MG Prednisone (PredniSONE TAB) 5 mg QAM PO 05/25/17 09:00 06/24/17 08:59 05/27/17 07:52 5 MG Topiramate (Topamax Tab) 150 mg HS PO 05/25/17 21:00 06/24/17 20:59 05/26/17 21:00 150 MG Diltiazem HCl (Cardizem Cd Cap) 120 mg QAM PO 05/25/17 09:00 06/24/17 08:59 05/27/17 07:49 120 MG Ferrous Sulfate (Feosol Tab) 325 mg BID PO 05/25/17 09:00 06/24/17 08:59 05/27/17 07:52 325 MG Pantoprazole Sodium (Protonix Tab) 40 mg BID PO 05/25/17 09:00 06/24/17 08:59 05/27/17 07:52 40 MG Oxycodone/ Acetaminophen (Percocet 5-325mg Tab) pain not relieved by tylenol Q4H PRN PO 05/24/17 21:15 06/07/17 21:14 05/27/17 18:35 2 TAB Lurasidone HCl (Latuda Tab) 20 mg HS PO 05/25/17 21:00 06/23/17 21:58 05/26/17 20:58 20 MG Hydrocortisone (Hydrocortisone 1% Crm) 1 appln PRN PRN EXT 05/25/17 19:45 06/24/17 19:44 05/25/17 22:10 1 APPLN Potassium Chloride/Sodium Chloride 1,000 ml @ 150 mls/hr Q6H40M IV 05/26/17 11:30 06/25/17 11:29 Future Hold 05/27/17 10:35 150 MLS/HR Cefuroxime Axetil (Ceftin Tab) 500 mg BID PO 05/26/17 12:00 05/30/17 11:59 05/27/17 07:51 500 MG Polyethylene (Miralax Powder Packet) 17 gm DAILY PO 05/26/17 11:00 06/25/17 10:59 05/27/17 07:56 17 GM
[2017-05-27] MEDS: LURASIDONE HCL 40 MG TAB PO SCH (20:30)
[2017-05-27] MEDS: TOPIRAMATE 100 MG TAB PO SCH (20:32)
[2017-05-27 23:45] VITALS: BP 144/88; PULSE 74; TEMP 36.8; O2SAT 98
[2017-05-28] MEDS: OXYCODONE/ACETAMINOPHEN 5-325 TAB PO PRN ×5 (00:01→23:52)
[2017-05-28] MEDS: LEVOTHYROXINE 50 MCG TAB PO SCH (06:16)
[2017-05-28] MEDS: HEPARIN SOD 5000 UNIT/0.5 ML CARP SQ SCH ×3 (06:20→20:59)
--- NOTE | 2017-05-28 07:18 | Consultant Recommendations ---
Phys Asst Recommendations Date of Service May 28, 2017. Phys Asst Recommendations CAN FOLLOW UP WITH [facility] [place] PRN. [phone] MAY CONTINUE TO FOLLOW WITH [employer] FOR INJECTIONS IF SHE PREFERS. WEIGHT BEAR TOLERATED ICE, TYLENOL PRN.
--- NOTE | 2017-05-28 07:40 | ORTHOPEDIC CONSULTATION ---
DATE OF CONSULTATION: 05/27/2017 The patient was seen in followup. As about her knee exam, her right knee is mildly swollen, left knee is more swollen. She said she was able to get up and walk around okay without difficulty. She says her knee is still slightly more swollen than it typically is. Exam demonstrates no instability. She has reasonably good range of motion, still has a small bruise on the medial side of her knee. She has some medial thigh soreness in both of her legs since her fall. No change in neurological exam. ASSESSMENT: Synovitis, left knee, aggravation of osteoarthritis of the left knee, advanced end-stage osteoarthritis of the left knee. Her knee was sterilely prepped with Betadine and a spinal needle was placed into the knee joint, 40 mL of clear fluid was aspirated from the knee joint. I injected her with 15 mL lidocaine for pain management. Band-Aid was placed. Plan now is light, gentle physical therapy and follow up with rheumatology for injections at regular appointments. She will follow up with Dr. Duckworth as needed for future orthopedic care.
[2017-05-28 07:46] LABS: BASO % 0.6 %; BASO ABS # 0.03 K/uL (0-0.2); COMPLETE YES; EOS % 3.1 %; LYMPH % 34.4 %; LYMPH ABS # 1.68 K/uL (1.2-3.4); MEAN CORPUSCULAR HEMOGLOBIN 32.8 pg (25-34); MEAN CORPUSCULAR HGB CONC 34.2 g/dl (32-36); NEUT % 49.9 %; PLATELET COUNT 194 K/uL (130-400); RED BLOOD COUNT 3.75 M/uL (4.2-5.4); WHITE BLOOD COUNT 4.89 K/uL (4.8-10.8)
[2017-05-28 08:07] VITALS: BP 164/84; PULSE 73; TEMP 37; O2SAT 95
[2017-05-28 08:19] LABS: BUN/CREATININE RATIO 12.4 (10-20); CALCIUM 10.2 mg/dl (8.5-10.1); CREATININE 0.89 mg/dl (0.60-1.20); POTASSIUM 3.9 mmol/L (3.5-5.1)
[2017-05-28] MEDS: PANTOprazole SOD 40 MG TAB PO SCH ×2 (08:52→21:02)
[2017-05-28] MEDS: GABAPENTIN 300 MG CAP PO SCH ×3 (08:52→21:03)
[2017-05-28] MEDS: DULOXETINE (CYMBALTA) 30 MG CAP PO SCH (08:53)
[2017-05-28] MEDS: CEFUROXIME AXETIL 500 MG TAB PO SCH ×2 (08:53→21:03)
[2017-05-28] MEDS: DULOXETINE HCL 60 MG CAP PO SCH (08:53)
[2017-05-28] MEDS: METAXALONE 800 MG TAB PO SCH ×4 (08:53→21:02)
[2017-05-28] MEDS: POLYETHYLENE (MIRALAX) 17 GM PACK PO SCH (08:54)
[2017-05-28] MEDS: DILTIAZEM HCL 120 MG CAPCR PO SCH (08:54)
[2017-05-28] MEDS: FERROUS SULFATE 325 MG TAB PO SCH ×2 (08:54→21:03)
[2017-05-28 15:09] VITALS: BP 160/90; PULSE 69; TEMP 36.5; O2SAT 94
[2017-05-28 16:00] VITALS: O2SAT 94
--- NOTE | 2017-05-28 19:14 | Progress Note ---
Medicine Progress Note Date & Time of Visit: May 28, 2017 at 19:14. Subjective Patient reports being in a good mood today; denies any new complaints. Tolerating PO. Has been ambulating with a walker and assistance. No overnight events noted. Still complains of pain in b/l LE, and states it is difficult for her to move her left leg. Objective Last 8 Hrs Date Time Temp Pulse Resp B/P (MAP) Pulse Ox O2 Delivery O2 Flow Rate FiO2 05/28/17 15:09 36.5 69 20 160/90 (113) 94 Physical Exam: GENERAL: Patient is in no acute distress. HEENT: No acute trauma, normocephalic atraumatic, mucous membranes moist, no nasal congestion, no scleral icterus. NECK: No stridor, trachea is midline. LUNGS: Clear to auscultation bilaterally, no wheeze, no rhonchi, breath sounds equal. HEART: Without murmurs gallops or rubs, regular rate and rhythm. ABDOMEN: Soft, nontender, bowel sounds positive EXTREMITIES: No cyanosis or edema, full range of motion of all the joints with pain "all over", few bruises on left side and knee NEUROLOGIC: Oriented x 3, no acute motor or sensory deficits, no focal weakness. SKIN: No rash, no jaundice, no diaphoresis. Laboratory Results: Last 24 Hours Test 05/28/17 07:03 White Blood Count 4.89 K/uL Red Blood Count 3.75 M/uL Hemoglobin 12.3 g/dL Hematocrit 36.0 % Mean Corpuscular Volume 96.0 fL Mean Corpuscular Hemoglobin 32.8 pg Mean Corpuscular Hemoglobin Concent 34.2 g/dl Platelet Count 194 K/uL Mean Platelet Volume 9.0 fL Neutrophils (%) (Auto) 49.9 % Lymphocytes (%) (Auto) 34.4 % Monocytes (%) (Auto) 11.0 % Eosinophils (%) (Auto) 3.1 % Basophils (%) (Auto) 0.6 % Neutrophils # (Auto) 2.44 K/uL Lymphocytes # (Auto) 1.68 K/uL Monocytes # (Auto) 0.54 K/uL Eosinophils # (Auto) 0.15 K/uL Basophils # (Auto) 0.03 K/uL RDW Standard Deviation 44.0 fL RDW Coefficient of Variation 12.6 % Immature Granulocyte % (Auto) 1.0 % Immature Granulocyte # (Auto) 0.05 K/uL Sodium Level 137 mmol/L Potassium Level 3.9 mmol/L Chloride Level 101 mmol/L Carbon Dioxide Level 28 mmol/L Anion Gap 8.0 mmol/L Blood Urea Nitrogen 11 mg/dl Creatinine 0.89 mg/dl Est Creatinine Clear Calc Drug Dose 70.5 ml/min Estimated GFR () 80.5 Estimated GFR (Non- 69.5 BUN/Creatinine Ratio 12.4 Random Glucose 99 mg/dl Calcium Level 10.2 mg/dl Total Creatine Kinase 3376 U/L Assessment & Plan Rhabdomyolysis: -related to fall and lying on the ground for unknown period of time -CK elevated but trending down to 11,526-->7000s-->5000's-->3000's today -complains of ongoing myalgias mostly in legs/thighs -Cr slightly elevated at 1.22 (baseline ~1), now back down to baseline -no evidence to suggest compartment syndrome -US negative -PRN analgesia -IV fluids with potassium supplement initially, now off -monitor lytes and renal function Fall, Possible Syncope: -patient does not recall events surrounding why/how she fell, unknown how long she was down, +LOC -CT head negative -EKG without changes -L humerus, pelvis, femur and tibia/fibula films without acute fracture/ dislocations, + presence of osteopenia and degenerative changes -Orthostatic vitals negative -EEG to rule out seizure -TTE EF 60-65% -no events on tele -fall precautions -MRI lumbar spine ordered to evaluate as patient with prior spinal surgery and pain only to bilateral thighs -will also consult Ortho regarding knee pain and effusion noted on x ray -patient is concerned regarding UDS positive for morphine and adamantly denies taking any narcotic medications except tramadol and ativan; patient requests re- test of UDS Elevated troponin: -likely related to fall -Initial 0.046, repeat decreased to 0.036 -Denies CP, no EKG changes -no events on tele -TTE without any wall motion abnormality; EF 60-65% HTN: -continue home cardizem Bipolar disorder: -stable -continue topamax, latuda Depression: -continue cymbalta Hypothyroidism: -continue levoxyl -TSH normal Fibromyalgia: -continue prednisone, metaxalone, gabapentin Osteopenia: -continue Vit D, calcium Current Inpatient Medications: Current Inpatient Medications Medications (Trade) Dose Ordered Sig/Yovany Route Start Time Stop Time Status Last Admin Dose Admin Heparin Sodium (Porcine) (Heparin Sq 5000 Unit/0.5ml) 5,000 unit Q8H SQ 05/25/17 06:00 06/24/17 05:59 05/28/17 13:44 5,000 UNIT Acetaminophen (Tylenol Tab) 325 mg Q6H PRN PO 05/24/17 21:15 06/23/17 21:14 Hydromorphone HCl (Dilaudid Inj) 0.25 mg Q4H PRN IV 05/24/17 21:15 06/07/17 21:14 05/27/17 22:20 0.25 MG Duloxetine HCl (Cymbalta Cap) 30 mg QAM PO 05/25/17 09:00 06/24/17 08:59 05/28/17 08:53 30 MG Duloxetine HCl (Cymbalta Cap) 60 mg QAM PO 05/25/17 09:00 06/24/17 08:59 05/28/17 08:53 60 MG Gabapentin (Neurontin Cap) 1,200 mg TID PO 05/25/17 09:00 06/24/17 08:59 05/28/17 13:39 1,200 MG Levothyroxine Sodium (Synthroid Tab) 50 mcg DAILYBB PO 05/25/17 06:00 06/24/17 05:59 05/28/17 06:16 50 MCG Metaxalone (Skelaxin Tab) 800 mg QID PO 05/25/17 09:00 06/24/17 08:59 05/28/17 17:19 800 MG Prednisone (PredniSONE TAB) 5 mg QAM PO 05/25/17 09:00 06/24/17 08:59 05/28/17 08:53 5 MG Topiramate (Topamax Tab) 150 mg HS PO 05/25/17 21:00 06/24/17 20:59 05/27/17 20:32 150 MG Diltiazem HCl (Cardizem Cd Cap) 120 mg QAM PO 05/25/17 09:00 06/24/17 08:59 05/28/17 08:54 120 MG Ferrous Sulfate (Feosol Tab) 325 mg BID PO 05/25/17 09:00 06/24/17 08:59 05/28/17 08:54 325 MG Pantoprazole Sodium (Protonix Tab) 40 mg BID PO 05/25/17 09:00 06/24/17 08:59 05/28/17 08:52 40 MG Oxycodone/ Acetaminophen (Percocet 5-325mg Tab) pain not relieved by tylenol Q4H PRN PO 05/24/17 21:15 06/07/17 21:14 05/28/17 16:34 2 TAB Lurasidone HCl (Latuda Tab) 20 mg HS PO 05/25/17 21:00 06/23/17 21:58 05/27/17 20:30 20 MG Hydrocortisone (Hydrocortisone 1% Crm) 1 appln PRN PRN EXT 05/25/17 19:45 06/24/17 19:44 05/25/17 22:10 1 APPLN Potassium Chloride/Sodium Chloride 1,000 ml @ 150 mls/hr Q6H40M IV 05/26/17 11:30 06/25/17 11:29 Future Hold 05/27/17 10:35 150 MLS/HR Cefuroxime Axetil (Ceftin Tab) 500 mg BID PO 05/26/17 12:00 05/30/17 11:59 05/28/17 08:53 500 MG Polyethylene (Miralax Powder Packet) 17 gm DAILY PO 05/26/17 11:00 06/25/17 10:59 05/28/17 08:54 17 GM
[2017-05-28] MEDS: HYDROmorphone INJ 0.5 MG/0.5 ML SYR IV PRN (19:24)
[2017-05-28] MEDS: TOPIRAMATE 100 MG TAB PO SCH (21:02)
[2017-05-28] MEDS: LURASIDONE HCL 40 MG TAB PO SCH (21:03)
[2017-05-29 00:45] VITALS: BP 146/89; PULSE 75; TEMP 37; O2SAT 98
[2017-05-29] MEDS: OXYCODONE/ACETAMINOPHEN 5-325 TAB PO PRN ×4 (04:18→19:41)
[2017-05-29] MEDS: HEPARIN SOD 5000 UNIT/0.5 ML CARP SQ SCH ×3 (06:04→21:06)
[2017-05-29] MEDS: LEVOTHYROXINE 50 MCG TAB PO SCH (06:24)
[2017-05-29 06:37] LABS: BUN/CREATININE RATIO 15.3 (10-20); CALCIUM 9.3 mg/dl (8.5-10.1); CREATININE 0.92 mg/dl (0.60-1.20); POTASSIUM 3.7 mmol/L (3.5-5.1)
[2017-05-29 07:24] VITALS: BP 113/75; PULSE 65; TEMP 36.7; O2SAT 94
[2017-05-29] MEDS: DULOXETINE HCL 60 MG CAP PO SCH (08:49)
[2017-05-29] MEDS: PANTOprazole SOD 40 MG TAB PO SCH ×2 (08:49→20:59)
[2017-05-29] MEDS: FERROUS SULFATE 325 MG TAB PO SCH ×2 (08:50→21:00)
[2017-05-29] MEDS: DULOXETINE (CYMBALTA) 30 MG CAP PO SCH (08:50)
[2017-05-29] MEDS: METAXALONE 800 MG TAB PO SCH ×4 (08:50→20:57)
[2017-05-29] MEDS: CEFUROXIME AXETIL 500 MG TAB PO SCH (08:50)
[2017-05-29] MEDS: DILTIAZEM HCL 120 MG CAPCR PO SCH (08:51)
[2017-05-29] MEDS: GABAPENTIN 300 MG CAP PO SCH ×3 (08:51→20:58)
[2017-05-29] MEDS: POLYETHYLENE (MIRALAX) 17 GM PACK PO SCH (08:51)
[2017-05-29] MEDS ORDERED: POTASSIUM CHLORIDE 20 MEQ TABCR PO STA (10:35)
[2017-05-29] MEDS ORDERED: FUROSEMIDE INJ 20 MG in SYRINGE 0 ML IV ONE (11:15)
[2017-05-29 15:08] VITALS: BP 144/83; PULSE 80; TEMP 36.7; O2SAT 97
[2017-05-29] MEDS: HYDROmorphone INJ 0.5 MG/0.5 ML SYR IV PRN (15:16)
--- NOTE | 2017-05-29 18:15 | Progress Note ---
Medicine Progress Note Date & Time of Visit: May 29, 2017 at 18:14. Subjective Patient denies any new complaints, states she continues to have pain, swelling, and weakness of her legs, but mostly her left thigh. No overnight events noted. Tolerating PO. Had a BM. Objective Last 8 Hrs Date Time Temp Pulse Resp B/P (MAP) Pulse Ox O2 Delivery O2 Flow Rate FiO2 05/29/17 16:22 Room Air 05/29/17 15:08 36.7 80 18 144/83 (103) 97 Room Air Physical Exam: GENERAL: Patient is in no acute distress. HEENT: No acute trauma, normocephalic, mucous membranes moist, no nasal congestion, no scleral icterus. NECK: No stridor, trachea is midline. LUNGS: Clear to auscultation bilaterally, no wheeze, no rhonchi, breath sounds equal. HEART: Without murmurs gallops or rubs, regular rate and rhythm. ABDOMEN: Soft, nontender, bowel sounds positive EXTREMITIES: No cyanosis; B/L LE edema left>right NEUROLOGIC: Oriented x 3, no acute motor or sensory deficits, no focal weakness. SKIN: No rash, no jaundice, no diaphoresis. Laboratory Results: Last 24 Hours Test 05/29/17 05:37 Sodium Level 138 mmol/L Potassium Level 3.7 mmol/L Chloride Level 104 mmol/L Carbon Dioxide Level 27 mmol/L Anion Gap 7.0 mmol/L Blood Urea Nitrogen 14 mg/dl Creatinine 0.92 mg/dl Est Creatinine Clear Calc Drug Dose 68.2 ml/min Estimated GFR () 77.3 Estimated GFR (Non- 66.7 BUN/Creatinine Ratio 15.3 Random Glucose 97 mg/dl Calcium Level 9.3 mg/dl Assessment & Plan Rhabdomyolysis: -related to fall and lying on the ground for unknown period of time -CK elevated but trending down to 11,526-->7000s-->5000's-->3000's -complains of ongoing myalgias mostly in legs/thighs -Cr slightly elevated at 1.22 (baseline ~1), now back down to baseline below 1 -no evidence to suggest compartment syndrome -US negative -PRN analgesia -IV fluids with potassium supplement initially, now off and taking adequate PO -continue to monitor lytes and renal function Fall, Possible Syncope: -patient does not recall events surrounding why/how she fell, unknown how long she was down, +LOC -CT head negative -EKG without changes -L humerus, pelvis, femur and tibia/fibula films without acute fracture/ dislocations, + presence of osteopenia and degenerative changes -Orthostatic vitals negative -EEG to rule out seizure although unlikely as no additional events have occurred since admission -TTE EF 60-65% -no events on tele -fall precautions -MRI lumbar spine; metallic artifact from prior back surgery was present; negative for spinal stenosis; possible mild narrowing of the neuroforamina bilaterally on osteophytic bases L5-S1. -will also consult Ortho regarding knee pain and effusion noted on x ray -patient is concerned regarding UDS positive for morphine and adamantly denies taking any narcotic medications except tramadol and ativan; patient requests re- test of UDS which is negative Elevated troponin: -likely related to fall -Initial 0.046, repeat decreased to 0.036 -Denies CP, no EKG changes -no events on tele -TTE without any wall motion abnormality; EF 60-65% HTN: -continue home cardizem Bipolar disorder: -stable -continue topamax, latuda Depression: -continue cymbalta Hypothyroidism: -continue levoxyl -TSH normal Fibromyalgia: -continue prednisone, metaxalone, gabapentin Osteopenia: -continue Vit D, calcium Current Inpatient Medications: Current Inpatient Medications Medications (Trade) Dose Ordered Sig/Yovany Route Start Time Stop Time Status Last Admin Dose Admin Heparin Sodium (Porcine) (Heparin Sq 5000 Unit/0.5ml) 5,000 unit Q8H SQ 05/25/17 06:00 06/24/17 05:59 05/29/17 13:33 5,000 UNIT Acetaminophen (Tylenol Tab) 325 mg Q6H PRN PO 05/24/17 21:15 06/23/17 21:14 Hydromorphone HCl (Dilaudid Inj) 0.25 mg Q4H PRN IV 05/24/17 21:15 06/07/17 21:14 05/29/17 15:16 0.25 MG Duloxetine HCl (Cymbalta Cap) 30 mg QAM PO 05/25/17 09:00 06/24/17 08:59 05/29/17 08:50 30 MG Duloxetine HCl (Cymbalta Cap) 60 mg QAM PO 05/25/17 09:00 06/24/17 08:59 05/29/17 08:49 60 MG Gabapentin (Neurontin Cap) 1,200 mg TID PO 05/25/17 09:00 06/24/17 08:59 05/29/17 13:30 1,200 MG Levothyroxine Sodium (Synthroid Tab) 50 mcg DAILYBB PO 05/25/17 06:00 06/24/17 05:59 05/29/17 06:24 50 MCG Metaxalone (Skelaxin Tab) 800 mg QID PO 05/25/17 09:00 06/24/17 08:59 05/29/17 17:28 800 MG Prednisone (PredniSONE TAB) 5 mg QAM PO 05/25/17 09:00 06/24/17 08:59 05/29/17 08:49 5 MG Topiramate (Topamax Tab) 150 mg HS PO 05/25/17 21:00 06/24/17 20:59 05/28/17 21:02 150 MG Diltiazem HCl (Cardizem Cd Cap) 120 mg QAM PO 05/25/17 09:00 06/24/17 08:59 05/29/17 08:51 120 MG Ferrous Sulfate (Feosol Tab) 325 mg BID PO 05/25/17 09:00 06/24/17 08:59 05/29/17 08:50 325 MG Pantoprazole Sodium (Protonix Tab) 40 mg BID PO 05/25/17 09:00 06/24/17 08:59 05/29/17 08:49 40 MG Oxycodone/ Acetaminophen (Percocet 5-325mg Tab) pain not relieved by tylenol Q4H PRN PO 05/24/17 21:15 06/07/17 21:14 05/29/17 13:29 2 TAB Lurasidone HCl (Latuda Tab) 20 mg HS PO 05/25/17 21:00 06/23/17 21:58 05/28/17 21:03 20 MG Hydrocortisone (Hydrocortisone 1% Crm) 1 appln PRN PRN EXT 05/25/17 19:45 06/24/17 19:44 05/25/17 22:10 1 APPLN Potassium Chloride/Sodium Chloride 1,000 ml @ 150 mls/hr Q6H40M IV 05/26/17 11:30 06/25/17 11:29 Future Hold 05/27/17 10:35 150 MLS/HR Polyethylene (Miralax Powder Packet) 17 gm DAILY PO 05/26/17 11:00 06/25/17 10:59 05/29/17 08:51 17 GM Cefuroxime Axetil (Ceftin Tab) 500 mg BID PO 05/29/17 21:00 05/30/17 11:59
[2017-05-29] MEDS: LURASIDONE HCL 40 MG TAB PO SCH (20:57)
[2017-05-29] MEDS: CEFUROXIME AXETIL 250 MG TAB PO SCH (20:58)
[2017-05-29] MEDS: TOPIRAMATE 100 MG TAB PO SCH (20:59)
[2017-05-30] VITALS: O2SAT 97
[2017-05-30 00:48] VITALS: BP 129/83; PULSE 74; TEMP 36.4; O2SAT 95
[2017-05-30] MEDS: OXYCODONE/ACETAMINOPHEN 5-325 TAB PO PRN ×4 (03:34→16:52)
[2017-05-30] MEDS: LEVOTHYROXINE 50 MCG TAB PO SCH (06:03)
[2017-05-30] MEDS: HEPARIN SOD 5000 UNIT/0.5 ML CARP SQ SCH ×3 (06:05→21:10)
[2017-05-30 07:16] VITALS: BP 124/79; PULSE 67; TEMP 36.8; O2SAT 97
[2017-05-30] MEDS: POLYETHYLENE (MIRALAX) 17 GM PACK PO SCH (07:49)
[2017-05-30 08:11] LABS: BUN/CREATININE RATIO 15.9 (10-20); CALCIUM 9.6 mg/dl (8.5-10.1); CREATININE 0.95 mg/dl (0.60-1.20); POTASSIUM 3.7 mmol/L (3.5-5.1)
[2017-05-30] MEDS: METAXALONE 800 MG TAB PO SCH ×4 (08:35→21:08)
[2017-05-30] MEDS: FERROUS SULFATE 325 MG TAB PO SCH ×2 (08:35→21:09)
[2017-05-30] MEDS: DULOXETINE (CYMBALTA) 30 MG CAP PO SCH (08:36)
[2017-05-30] MEDS: PANTOprazole SOD 40 MG TAB PO SCH ×2 (08:36→21:07)
[2017-05-30] MEDS: DILTIAZEM HCL 120 MG CAPCR PO SCH (08:36)
[2017-05-30] MEDS: DULOXETINE HCL 60 MG CAP PO SCH (08:36)
[2017-05-30] MEDS: GABAPENTIN 300 MG CAP PO SCH ×3 (08:36→21:07)
[2017-05-30] MEDS: CEFUROXIME AXETIL 250 MG TAB PO SCH (08:37)
[2017-05-30 14:59] VITALS: BP 137/82; PULSE 81; TEMP 36.6; O2SAT 96
--- NOTE | 2017-05-30 15:57 | Progress Note ---
Medicine Progress Note Date & Time of Visit: May 30, 2017 at 15:56. Subjective Patient reports feeling ok, denies any new complaints, still has pain in legs and weakness of the left thigh. Tolerating PO. Has been trying to ambulate with a walker and assist. No overnight events noted. Objective Last 8 Hrs Date Time Temp Pulse Resp B/P (MAP) Pulse Ox O2 Delivery O2 Flow Rate FiO2 05/30/17 14:59 36.6 81 18 137/82 (100) 96 Room Air 05/30/17 08:00 Room Air Physical Exam: GENERAL: Patient is in no acute distress. HEENT: No acute trauma, normocephalic, mucous membranes moist, no nasal congestion, no scleral icterus. NECK: No stridor, trachea is midline. LUNGS: Clear to auscultation bilaterally, no wheeze, no rhonchi, breath sounds equal. HEART: Without murmurs gallops or rubs, regular rate and rhythm. ABDOMEN: Soft, nontender, bowel sounds positive EXTREMITIES: No cyanosis; B/L LE edema left>right NEUROLOGIC: Oriented x 3, no acute motor or sensory deficits, no focal weakness. SKIN: No rash, no jaundice, no diaphoresis. Laboratory Results: Last 24 Hours Test 05/30/17 07:19 Sodium Level 136 mmol/L Potassium Level 3.7 mmol/L Chloride Level 101 mmol/L Carbon Dioxide Level 28 mmol/L Anion Gap 8.0 mmol/L Blood Urea Nitrogen 15 mg/dl Creatinine 0.95 mg/dl Est Creatinine Clear Calc Drug Dose 66.1 ml/min Estimated GFR () 74.4 Estimated GFR (Non- 64.2 BUN/Creatinine Ratio 15.9 Random Glucose 98 mg/dl Calcium Level 9.6 mg/dl Total Creatine Kinase 2235 U/L Assessment & Plan Rhabdomyolysis: -related to fall and lying on the ground for unknown period of time -CPK trending down to 11,526-->7000s-->5000's-->3000's-->2000's -complains of ongoing myalgias mostly in legs/thighs -Cr slightly elevated at 1.22 (baseline ~1), now back down to baseline below 1 -no evidence to suggest compartment syndrome -US negative for DVT -PRN analgesia -IV fluids with potassium supplement initially, now off and taking adequate PO -continue to monitor lytes and renal function -given a dose of lasix yesterday due to LE edema and patient stating the edema was making her pain worse Fall, Possible Syncope: -patient does not recall events surrounding why/how she fell, unknown how long she was down, +LOC -CT head negative -EKG without changes -L humerus, pelvis, femur and tibia/fibula films without acute fracture/ dislocations, + presence of osteopenia and degenerative changes -Orthostatic vitals negative -EEG to rule out seizure although unlikely as no additional events have occurred since admission -TTE EF 60-65% -no events on tele -fall precautions -MRI lumbar spine; metallic artifact from prior back surgery was present; negative for spinal stenosis; possible mild narrowing of the neuroforamina bilaterally on osteophytic bases L5-S1. -will also consult Ortho regarding knee pain and effusion noted on x ray -patient is concerned regarding UDS positive for morphine and adamantly denies taking any narcotic medications except tramadol and ativan; patient requests re- test of UDS which is positive for oxycodone Elevated troponin: -likely related to fall -Initial 0.046, repeat decreased to 0.036 -Denies CP, no EKG changes -no events on tele -TTE without any wall motion abnormality; EF 60-65% HTN: -continue home cardizem Bipolar disorder: -stable -continue topamax, latuda Depression: -continue cymbalta Hypothyroidism: -continue levoxyl -TSH normal Fibromyalgia: -continue prednisone, metaxalone, gabapentin Osteopenia: -continue Vit D, calcium Current Inpatient Medications: Current Inpatient Medications Medications (Trade) Dose Ordered Sig/Yovany Route Start Time Stop Time Status Last Admin Dose Admin Heparin Sodium (Porcine) (Heparin Sq 5000 Unit/0.5ml) 5,000 unit Q8H SQ 05/25/17 06:00 06/24/17 05:59 05/30/17 14:54 5,000 UNIT Acetaminophen (Tylenol Tab) 325 mg Q6H PRN PO 05/24/17 21:15 06/23/17 21:14 Hydromorphone HCl (Dilaudid Inj) 0.25 mg Q4H PRN IV 05/24/17 21:15 06/07/17 21:14 05/29/17 15:16 0.25 MG Duloxetine HCl (Cymbalta Cap) 30 mg QAM PO 05/25/17 09:00 06/24/17 08:59 05/30/17 08:36 30 MG Duloxetine HCl (Cymbalta Cap) 60 mg QAM PO 05/25/17 09:00 06/24/17 08:59 05/30/17 08:36 60 MG Gabapentin (Neurontin Cap) 1,200 mg TID PO 05/25/17 09:00 06/24/17 08:59 05/30/17 14:52 1,200 MG Levothyroxine Sodium (Synthroid Tab) 50 mcg DAILYBB PO 05/25/17 06:00 06/24/17 05:59 05/30/17 06:03 50 MCG Metaxalone (Skelaxin Tab) 800 mg QID PO 05/25/17 09:00 06/24/17 08:59 05/30/17 12:58 800 MG Prednisone (PredniSONE TAB) 5 mg QAM PO 05/25/17 09:00 06/24/17 08:59 05/30/17 08:36 5 MG Topiramate (Topamax Tab) 150 mg HS PO 05/25/17 21:00 06/24/17 20:59 05/29/17 20:59 150 MG Diltiazem HCl (Cardizem Cd Cap) 120 mg QAM PO 05/25/17 09:00 06/24/17 08:59 05/30/17 08:36 120 MG Ferrous Sulfate (Feosol Tab) 325 mg BID PO 05/25/17 09:00 06/24/17 08:59 05/30/17 08:35 325 MG Pantoprazole Sodium (Protonix Tab) 40 mg BID PO 05/25/17 09:00 06/24/17 08:59 05/30/17 08:36 40 MG Oxycodone/ Acetaminophen (Percocet 5-325mg Tab) pain not relieved by tylenol Q4H PRN PO 05/24/17 21:15 06/07/17 21:14 05/30/17 12:59 2 TAB Lurasidone HCl (Latuda Tab) 20 mg HS PO 05/25/17 21:00 06/23/17 21:58 05/29/17 20:57 20 MG Hydrocortisone (Hydrocortisone 1% Crm) 1 appln PRN PRN EXT 05/25/17 19:45 06/24/17 19:44 05/25/17 22:10 1 APPLN Potassium Chloride/Sodium Chloride 1,000 ml @ 150 mls/hr Q6H40M IV 05/26/17 11:30 06/25/17 11:29 Future Hold 05/27/17 10:35 150 MLS/HR Polyethylene (Miralax Powder Packet) 17 gm DAILY PO 05/26/17 11:00 06/25/17 10:59 05/30/17 07:49 17 GM Tramadol HCl (Ultram Tab) @ Q6 PRN PO 05/30/17 15:15 06/29/17 15:14 Furosemide (Lasix Tab) 20 mg QAM PO 05/31/17 09:00 06/01/17 08:59 Potassium Chloride (Klor-Con Tab) 20 meq QAM PO 05/31/17 09:00 06/30/17 08:59
[2017-05-30] MEDS: TOPIRAMATE 100 MG TAB PO SCH (21:08)
[2017-05-30] MEDS: LURASIDONE HCL 40 MG TAB PO SCH (21:09)
[2017-05-30] MEDS: TRAMADOL HCL 50 MG TAB PO PRN (22:55)
[2017-05-30 23:41] VITALS: BP 148/86; PULSE 69; TEMP 36.6; O2SAT 94
[2017-05-31] MEDS: OXYCODONE/ACETAMINOPHEN 5-325 TAB PO PRN ×3 (00:27→17:11)
[2017-05-31] MEDS: HYDROmorphone INJ 0.5 MG/0.5 ML SYR IV PRN (01:33)
[2017-05-31] MEDS: LEVOTHYROXINE 50 MCG TAB PO SCH (06:02)
[2017-05-31] MEDS: HEPARIN SOD 5000 UNIT/0.5 ML CARP SQ SCH ×3 (06:04→21:03)
[2017-05-31 07:25] LABS: BASO % 0.9 %; BASO ABS # 0.05 K/uL (0-0.2); COMPLETE YES; EOS % 5.4 %; HEMATOCRIT 31.2 % (37-47); LYMPH ABS # 1.96 K/uL (1.2-3.4); MEAN CELL VOLUME 96.3 fL (80-100); MEAN CORPUSCULAR HEMOGLOBIN 32.4 pg (25-34); MEAN CORPUSCULAR HGB CONC 33.7 g/dl (32-36); MEAN PLATELET VOLUME 8.6 fL (7.4-10.4); MONO % 10.5 %; NEUT % 46.2 %; PLATELET COUNT 198 K/uL (130-400); RED BLOOD COUNT 3.24 M/uL (4.2-5.4)
[2017-05-31] MEDS: POLYETHYLENE (MIRALAX) 17 GM PACK PO SCH (07:49)
[2017-05-31] MEDS: METAXALONE 800 MG TAB PO SCH ×4 (07:51→21:01)
[2017-05-31] MEDS: DULOXETINE (CYMBALTA) 30 MG CAP PO SCH (07:52)
[2017-05-31] MEDS: DULOXETINE HCL 60 MG CAP PO SCH (07:52)
[2017-05-31] MEDS: FERROUS SULFATE 325 MG TAB PO SCH ×2 (07:52→21:03)
[2017-05-31] MEDS: PANTOprazole SOD 40 MG TAB PO SCH ×2 (07:52→21:01)
[2017-05-31] MEDS: GABAPENTIN 300 MG CAP PO SCH ×3 (07:52→21:03)
[2017-05-31] MEDS: POTASSIUM CHLORIDE 20 MEQ TABCR PO SCH (07:52)
[2017-05-31] MEDS: DILTIAZEM HCL 120 MG CAPCR PO SCH (07:53)
[2017-05-31 08:04] LABS: BUN/CREATININE RATIO 16.5 (10-20); CALCIUM 9.6 mg/dl (8.5-10.1); CREATININE 1.16 mg/dl (0.60-1.20); POTASSIUM 3.5 mmol/L (3.5-5.1)
[2017-05-31 08:07] VITALS: BP 150/83; PULSE 81; TEMP 36.6; O2SAT 93
[2017-05-31 08:12] LABS: URCREATININE 12.5 MG/DL (>/= 20)
[2017-05-31] MEDS ORDERED: FUROSEMIDE 20 MG TAB PO SCH (09:00)
[2017-05-31 16:34] VITALS: BP 129/71; PULSE 75; TEMP 36.7; O2SAT 94
--- NOTE | 2017-05-31 17:18 | Progress Note ---
Medicine Progress Note Date & Time of Visit: May 31, 2017 at 17:18. Subjective Patient states she feels she has gained weight from fluid and is concerned, asking for more diuretic. Has been ambulating with a walker in her room. States she still feels weak and cannot lift her left leg up. Continues to complain of pain in legs and lower back since her fall. No overnight events noted. Has had BMs. Objective Last 8 Hrs Date Time Temp Pulse Resp B/P (MAP) Pulse Ox O2 Delivery O2 Flow Rate FiO2 05/31/17 16:34 36.7 75 18 129/71 (90) 94 Room Air Physical Exam: GENERAL: Patient is in no acute distress. HEENT: No acute trauma, normocephalic, mucous membranes moist, no nasal congestion, no scleral icterus. NECK: No stridor, trachea is midline. LUNGS: Clear to auscultation bilaterally, no wheeze, no rhonchi, breath sounds equal. HEART: Without murmurs gallops or rubs, regular rate and rhythm. ABDOMEN: Soft, nontender, bowel sounds positive EXTREMITIES: No cyanosis; B/L LE edema left>right up to the knee NEUROLOGIC: Oriented x 3, no acute motor or sensory deficits, no focal weakness. SKIN: No rash, no jaundice, no diaphoresis. Laboratory Results: Last 24 Hours Test 05/31/17 07:02 White Blood Count 5.60 K/uL Red Blood Count 3.24 M/uL Hemoglobin 10.5 g/dL Hematocrit 31.2 % Mean Corpuscular Volume 96.3 fL Mean Corpuscular Hemoglobin 32.4 pg Mean Corpuscular Hemoglobin Concent 33.7 g/dl Platelet Count 198 K/uL Mean Platelet Volume 8.6 fL Neutrophils (%) (Auto) 46.2 % Lymphocytes (%) (Auto) 35.0 % Monocytes (%) (Auto) 10.5 % Eosinophils (%) (Auto) 5.4 % Basophils (%) (Auto) 0.9 % Neutrophils # (Auto) 2.59 K/uL Lymphocytes # (Auto) 1.96 K/uL Monocytes # (Auto) 0.59 K/uL Eosinophils # (Auto) 0.30 K/uL Basophils # (Auto) 0.05 K/uL RDW Standard Deviation 45.0 fL RDW Coefficient of Variation 12.8 % Immature Granulocyte % (Auto) 2.0 % Immature Granulocyte # (Auto) 0.11 K/uL Sodium Level 137 mmol/L Potassium Level 3.5 mmol/L Chloride Level 100 mmol/L Carbon Dioxide Level 27 mmol/L Anion Gap 10.0 mmol/L Blood Urea Nitrogen 19 mg/dl Creatinine 1.16 mg/dl Est Creatinine Clear Calc Drug Dose 54.1 ml/min Estimated GFR () 58.4 Estimated GFR (Non- 50.4 BUN/Creatinine Ratio 16.5 Random Glucose 92 mg/dl Calcium Level 9.6 mg/dl Total Creatine Kinase 1670 U/L Assessment & Plan Rhabdomyolysis: -related to fall and lying on the ground for unknown period of time -CPK trending down to 11,526-->7000s-->5000's-->3000's-->2000's-->1600 -complains of ongoing myalgias mostly in legs/thighs -Cr slightly elevated at 1.22 (baseline ~1) -no evidence to suggest compartment syndrome -US negative for DVT -PRN analgesia -IV fluids with potassium supplement initially, now off and taking adequate PO -continue to monitor lytes and renal function -given a dose of lasix x 2 days due to LE edema and patient stating the edema was making her pain worse, however Cr is slowly worsening (1.1 today) will therefore hold off on any additional diuretic Fall, Possible Syncope: -patient does not recall events surrounding why/how she fell, unknown how long she was down, +LOC -CT head negative -EKG without changes -L humerus, pelvis, femur and tibia/fibula films without acute fracture/ dislocations, + presence of osteopenia and degenerative changes -Orthostatic vitals negative -EEG to rule out seizure although unlikely as no additional events have occurred since admission -TTE EF 60-65% -no events on tele -fall precautions -MRI lumbar spine; metallic artifact from prior back surgery was present; negative for spinal stenosis; possible mild narrowing of the neuroforamina bilaterally on osteophytic bases L5-S1. -will also consult Ortho regarding knee pain and effusion noted on x ray -patient is concerned regarding UDS positive for morphine and adamantly denies taking any narcotic medications except tramadol and ativan; patient requests re- test of UDS which is positive for oxycodone Elevated troponin: -likely related to fall -Initial 0.046, repeat decreased to 0.036 -Denies CP, no EKG changes -no events on tele -TTE without any wall motion abnormality; EF 60-65% HTN: -continue home cardizem Bipolar disorder: -stable -continue topamax, latuda Depression: -continue cymbalta Hypothyroidism: -continue levoxyl -TSH normal Fibromyalgia: -continue prednisone, metaxalone, gabapentin Osteopenia: -continue Vit D, calcium Dispo: Awaiting insurance approval for SNF for rehab; [facility] was denied Current Inpatient Medications: Current Inpatient Medications Medications (Trade) Dose Ordered Sig/Yovany Route Start Time Stop Time Status Last Admin Dose Admin Heparin Sodium (Porcine) (Heparin Sq 5000 Unit/0.5ml) 5,000 unit Q8H SQ 05/25/17 06:00 06/24/17 05:59 05/31/17 13:55 5,000 UNIT Acetaminophen (Tylenol Tab) 325 mg Q6H PRN PO 05/24/17 21:15 06/23/17 21:14 Hydromorphone HCl (Dilaudid Inj) 0.25 mg Q4H PRN IV 05/24/17 21:15 06/07/17 21:14 05/31/17 01:33 0.25 MG Duloxetine HCl (Cymbalta Cap) 30 mg QAM PO 05/25/17 09:00 06/24/17 08:59 05/31/17 07:52 30 MG Duloxetine HCl (Cymbalta Cap) 60 mg QAM PO 05/25/17 09:00 06/24/17 08:59 05/31/17 07:52 60 MG Gabapentin (Neurontin Cap) 1,200 mg TID PO 05/25/17 09:00 06/24/17 08:59 05/31/17 13:51 1,200 MG Levothyroxine Sodium (Synthroid Tab) 50 mcg DAILYBB PO 05/25/17 06:00 06/24/17 05:59 05/31/17 06:02 50 MCG Metaxalone (Skelaxin Tab) 800 mg QID PO 05/25/17 09:00 06/24/17 08:59 05/31/17 17:11 800 MG Prednisone (PredniSONE TAB) 5 mg QAM PO 05/25/17 09:00 06/24/17 08:59 05/31/17 07:52 5 MG Topiramate (Topamax Tab) 150 mg HS PO 05/25/17 21:00 06/24/17 20:59 05/30/17 21:08 150 MG Diltiazem HCl (Cardizem Cd Cap) 120 mg QAM PO 05/25/17 09:00 06/24/17 08:59 05/31/17 07:53 120 MG Ferrous Sulfate (Feosol Tab) 325 mg BID PO 05/25/17 09:00 06/24/17 08:59 05/31/17 07:52 325 MG Pantoprazole Sodium (Protonix Tab) 40 mg BID PO 05/25/17 09:00 06/24/17 08:59 05/31/17 07:52 40 MG Oxycodone/ Acetaminophen (Percocet 5-325mg Tab) pain not relieved by tylenol Q4H PRN PO 05/24/17 21:15 06/07/17 21:14 05/31/17 17:11 2 TAB Lurasidone HCl (Latuda Tab) 20 mg HS PO 05/25/17 21:00 06/23/17 21:58 05/30/17 21:09 20 MG Hydrocortisone (Hydrocortisone 1% Crm) 1 appln PRN PRN EXT 05/25/17 19:45 06/24/17 19:44 05/25/17 22:10 1 APPLN Potassium Chloride/Sodium Chloride 1,000 ml @ 150 mls/hr Q6H40M IV 05/26/17 11:30 06/25/17 11:29 Future Hold 05/27/17 10:35 150 MLS/HR Polyethylene (Miralax Powder Packet) 17 gm DAILY PO 05/26/17 11:00 06/25/17 10:59 05/31/17 07:49 17 GM Tramadol HCl (Ultram Tab) @ Q6 PRN PO 05/30/17 15:15 06/29/17 15:14 05/30/17 22:55 100 MG Furosemide (Lasix Tab) 20 mg QAM PO 05/31/17 09:00 06/01/17 08:59 05/31/17 07:52 20 MG Potassium Chloride (Klor-Con Tab) 20 meq QAM PO 05/31/17 09:00 06/30/17 08:59 05/31/17 07:52 20 MEQ
[2017-05-31] MEDS: TOPIRAMATE 100 MG TAB PO SCH (21:02)
[2017-05-31] MEDS: LURASIDONE HCL 40 MG TAB PO SCH (21:02)
[2017-05-31 23:25] VITALS: BP 132/82; PULSE 74; TEMP 36.8; O2SAT 93
[2017-06-01] MEDS: OXYCODONE/ACETAMINOPHEN 5-325 TAB PO PRN ×4 (03:01→15:03)
[2017-06-01] MEDS: LEVOTHYROXINE 50 MCG TAB PO SCH (05:44)
[2017-06-01] MEDS: HEPARIN SOD 5000 UNIT/0.5 ML CARP SQ SCH ×2 (05:45→14:00)
[2017-06-01] MEDS: POLYETHYLENE (MIRALAX) 17 GM PACK PO SCH (06:40)
[2017-06-01 07:40] VITALS: BP 157/84; PULSE 71; TEMP 36.7; O2SAT 94
[2017-06-01 08:00] LABS: HEMATOCRIT 33.7 % (37-47); MEAN CELL VOLUME 96.3 fL (80-100); MEAN CORPUSCULAR HEMOGLOBIN 32.9 pg (25-34); MEAN CORPUSCULAR HGB CONC 34.1 g/dl (32-36); MEAN PLATELET VOLUME 8.6 fL (7.4-10.4); PLATELET COUNT 229 K/uL (130-400); WHITE BLOOD COUNT 6.55 K/uL (4.8-10.8)
[2017-06-01] MEDS: POTASSIUM CHLORIDE 20 MEQ TABCR PO SCH (08:26)
[2017-06-01] MEDS: PANTOprazole SOD 40 MG TAB PO SCH (08:26)
[2017-06-01] MEDS: DULOXETINE (CYMBALTA) 30 MG CAP PO SCH (08:26)
[2017-06-01] MEDS: FERROUS SULFATE 325 MG TAB PO SCH (08:26)
[2017-06-01] MEDS: DILTIAZEM HCL 120 MG CAPCR PO SCH (08:26)
[2017-06-01] MEDS: GABAPENTIN 300 MG CAP PO SCH ×2 (08:26→13:26)
[2017-06-01] MEDS: DULOXETINE HCL 60 MG CAP PO SCH (08:27)
[2017-06-01] MEDS: METAXALONE 800 MG TAB PO SCH ×3 (08:27→16:46)
[2017-06-01 08:36] LABS: BUN/CREATININE RATIO 15.9 (10-20); CALCIUM 9.9 mg/dl (8.5-10.1); CREATININE 1.08 mg/dl (0.60-1.20); POTASSIUM 3.7 mmol/L (3.5-5.1)
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
--- NOTE | 2017-06-01 14:19 | Psychiatric Progress Notes ---
Progress Note Date of Service Jun 01, 2017. Interval History 61-year-old woman admitted medically secondary to rhabdo after a fall. We're consulted to evaluate depression. Chief Complaint "Oh no I'm fine.". Subjective Patient was seen & assessed interval progress reviewed. We have been asked to return to see the patient after she made statements of suicidality this morning , saying that if she were to go home she would get a gun and shoot herself. At the time I see the patient she is calm, seated in her bed playing with her phone. She is cooperative with the interview. She admits that she was feeling frustrated but her intention in her statement, per the patient, was that if her pain were to continue unabated, then she would consider suicide but denies that she has access to gun, denies that she has any intent at this time. She reports that her pain is currently controlled. 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 She admits that she has overworked herself in PT, OT with exercises and that has intermittently exacerbated her pain. She admits that today is "not a good day" but again adamantly denies any suicidality active or passive at this time. She admits that she may have been somewhat flippant in making that statement. She is hopeful to go from here to a nursing facility for ongoing rehabilitation. She denies any other needs at this time. Review of Systems Constitutional: No fever, No chills, No sweats, No weight loss, No weakness, No fatigue, No problem reported ENT: No hearing loss, No unusual epistaxis, No nasal symptoms, No sore throat, No tinnitus, No dental problems, No trouble swallowing, No problem reported Respiratory: No cough, No sputum, No wheezing, No shortness of breath, No dyspnea on exertion, No dyspnea at rest, No hemoptysis, No problem reported Cardiovascular: No chest pain, No orthopnea, No PND, No edema, No claudication , No palpitations, No problem reported Abdomen: No pain, No nausea, No vomiting, No diarrhea, No constipation, No GI bleeding, No problem reported Musculoskeletal: + problem reported ("pain all over this morning") Neurologic: No memory loss, No paralysis, No weakness, No numbness/tingling, No vertigo, No balance problems, No problem reported Psychiatric: + problem reported (mood and anxiety worsened by pain) Integumentary: No rash, No itch, No new/changing skin lesions, No color change , No bleeding, No problem reported Mental Status Exam During interview pt is: alert and oriented, cooperative Appearance: appropriately dressed, appropriately groomed (here is short and dyed bright orange) Eye contact is: good Motor behavior is: no abnormal motor movements Speech: normal in rate, rhythm & volume (hyperverbal, angry tone at times) Affect: euthymic Mood is: depressed (when assaulted by pain) Thought process: goal directed Thought content: reality based without delusions Suicidal thought are: denied Homicidal thoughts are: denied Hallucinations: denies auditory, denies visual Cognition: memory grossly intact, attention grossly intact, language grossly intact Intelligence estimated to be: average Insight: impaired Judgement: impaired Impression Summoned to see the patient again after she made suicidal statements. In clarification, she admits that she made the statements about shooting herself with a gun, saying that she was probably being a bit too flippant and that her intent had been to say that if her pain remains unabated that it was not tolerable and she would consider suicide. She adamantly denies that she is currently suicidal, denies access to guns at home, and is hopeful. She is able to state a safety plan should she go home and find herself in pain which includes immediately calling her PCP or presenting to the emergency department. Visit Code E&M Code: 56684 Data Vital Signs Last 24 Hrs: Date Time Temp Pulse Resp B/P (MAP) Pulse Ox O2 Delivery O2 Flow Rate FiO2 06/01/17 08:00 Room Air 06/01/17 07:40 36.7 71 18 157/84 (108) 94 Room Air 06/01/17 01:30 Room Air 05/31/17 23:25 36.8 74 20 132/82 (99) 93 Room Air 05/31/17 17:59 Room Air 05/31/17 16:34 36.7 75 18 129/71 (90) 94 Room Air Meds Administered Last 24 Hrs: Meds Administered (Past 24Hrs) Medications (Trade) Dose Ordered Sig/Yovany Route Start Time Stop Time Status Last Admin Dose Admin Tramadol HCl (Ultram Tab) @ Q6 PRN PO 05/30/17 15:15 06/29/17 15:14 05/30/17 22:55 100 MG Furosemide (Lasix Tab) 20 mg QAM PO 05/31/17 09:00 06/01/17 08:59 DC 05/31/17 07:52 20 MG Potassium Chloride (Klor-Con Tab) 20 meq QAM PO 05/31/17 09:00 06/30/17 08:59 06/01/17 08:26 20 MEQ Lab Results Last 24 Hrs: Last 24 Hours Test 06/01/17 07:17 White Blood Count 6.55 K/uL Red Blood Count 3.50 M/uL Hemoglobin 11.5 g/dL Hematocrit 33.7 % Mean Corpuscular Volume 96.3 fL Mean Corpuscular Hemoglobin 32.9 pg Mean Corpuscular Hemoglobin Concent 34.1 g/dl RDW Standard Deviation 45.7 fL RDW Coefficient of Variation 13.1 % Platelet Count 229 K/uL Mean Platelet Volume 8.6 fL Sodium Level 137 mmol/L Potassium Level 3.7 mmol/L Chloride Level 101 mmol/L Carbon Dioxide Level 26 mmol/L Anion Gap 10.0 mmol/L Blood Urea Nitrogen 17 mg/dl Creatinine 1.08 mg/dl Est Creatinine Clear Calc Drug Dose 58.1 ml/min Estimated GFR () 63.7 Estimated GFR (Non- 55.0 BUN/Creatinine Ratio 15.9 Random Glucose 104 mg/dl Calcium Level 9.9 mg/dl Total Creatine Kinase 1213 U/L
[2017-06-01] MEDS ORDERED: TRAM-10 PO (14:50)
--- NOTE | 2017-06-01 14:51 | Discharge Instructions ---
Discharge Instructions Date of Service Jun 01, 2017. Admission Reason for Admission: Rhabdomyolysis, Syncope Discharge Discharge Diagnosis / Problem: Syncope, Fall, Rhabdomyolysis (muscle breakdown) Discharge Goals Goal(s): Decrease discomfort, Improve function, Diagnostic testing, Therapeutic intervention Activity Recommendations Activity Limitations: resume your previous activity . Instructions / Follow-Up Instructions / Follow-Up Please follow-up with your primary care physician after stay at the [facility] Diet Patient's current hospital diet: Regular Diet Discharge Diet Recommended Diet: Regular Diet Pending Studies Studies pending at discharge: no Medical Emergencies . Who to Call and When: Medical Emergencies: If at any time you feel your situation is an emergency, please call 911 immediately. . Non-Emergent Contact Non-Emergency issues call your: Primary Care Provider . . "Provider Documentation" section prepared by Ramiro Hermosillo. . Striping Machine Operator Recommendations Striping Machine Operator Recommendations: CAN FOLLOW UP WITH [facility] PRN. 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 WEIGHT BEAR TOLERATED ICE, TYLENOL PRN. VTE Core Measure Inpt VTE Proph given/why not?: Unfractionated heparin SQ [place] Drug Monitoring Program Search Results: patient reviewed within database, no issues identified
--- NOTE | 2017-06-01 14:52 | Discharge Summary ---
Discharge Summary Date of Service Jun 01, 2017. Discharge Summary Admission Date: May 24, 2017 at 20:13 Discharge Date: Jun 01, 2017 Discharge Disposition: [facility] facility Principal Diagnosis: Syncope and Collapse Rhabdomyolysis Medication Reconciliation Continued Medications: Acetaminophen (Tylenol) 500 Mg Tab 2 TAB PO Q4H PRN for Pain Acyclovir Topical (Acyclovir) 5 % Oin 1 DOSE EXT DIRECTED PRN for PRN Albuterol Sulfate (Proair Respiclick) 108 Mcg/Act Aer 2 PUFFS INH QID PRN for Shortness of Breath Calcium Citrate-Vitamin D (Citracal + D3 Maximum) 1 Tab Tab 1 TAB PO BID Chlorthalidone (Hygroton) 25 Mg Tab 25 MG PO QAM Diclofenac Sodium (Topical) (Voltaren 1% Top Gel) 1 % Gel 1 DOSE EXT QID PRN for Pain Diltiazem Hcl Coated Beads (Cardizem La) 120 Mg Tab 120 MG PO QAM, TAB Duloxetine HCl (Cymbalta) 30 Mg Cap 1 CAP PO QAM Duloxetine Hcl (Cymbalta) 60 Mg Cap 60 MG PO QAM, CAP Ferrous Sulfate (Kp Ferrous Sulfate) 325 Mg Tab 1 TAB PO BID Fluticasone Propionate (Nasal) (Flonase Allergy Relief) 50 Mcg/Act Spr 2 SPRAY MEAGAN DAILY PRN for PRN Gabapentin (Neurontin) 300 Mg Cap 4 CAP PO TID, CAP Levothyroxine Sodium (Synthroid) 50 Mcg Tab 50 MCG PO QAM, TAB Losartan Potassium (Cozaar) 100 Mg Tab 100 MG PO QAM, TAB Lurasidone Hcl (Latuda) 20 Mg Tab 20 MG PO HS Meloxicam (Mobic) 7.5 Mg Tab 7.5 MG PO BID, TAB Metaxalone (Skelaxin) 800 Mg Tab 800 MG PO QID, TAB Omeprazole (Prilosec) 20 Mg Capcr 20 MG PO BID, CAP Potassium Ext Rel (Klor-Con) 20 Meq Tabcr 20 MEQ PO QAM, TAB Prednisone (Prednisone) 5 Mg Tab 5 MG PO QAM, TAB Topiramate (Topamax) 100 Mg Tab 150 MG PO HS, TAB Tramadol (Ultram) 50 Mg Tab 2 TAB PO Q6H PRN for Pain for 3 Days, #24 TABS (This prescription has been renewed) Triamcinolone Acet (Triamcinolone Acetonide) 45 Appln/15 Gm Oint 1 APPLN TOP BID for 30 Days, #454 GM [[employer]] () 1 CAP PO QAM Discontinued Medications: Cefuroxime Axetil (Cefuroxime Axetil) 500 Mg Tab 500 MG PO BID Admission Information HPI (per Admitting provider): This is a 61yo F with a PMH of bipolar disorder, borderline personality disorder , HTN and fibromyalgia who presents after a fall last night. The patient remembers walking into the kitchen around 8pm to get something to eat. The next thing she recalls is waking up on her back hours later on the floor by the sink. Does not remember any abnormal event proceeding her loss of consciousness , such as lightheadedness, CP, trauma etc. Does not know how long she was unconscious. Upon waking, she noticed that she had wet herself and that her whole body was in pain. Tried to stand up but reports being in too much pain. Was able to scoot and crawl to her bedroom and went back to sleep. When she woke up in the AM, noticed that she had wet herself again. Called her pharmacy affairs assistant , Brandon, who then called an ambulance. Patient denies any history of syncope, seizures or heart disease. Reports aching pain on entire L side, most specifically her L hip, knee and inner thigh. Denies headache, visual changes, CP, SOB, abd pain, nausea/vomiting, dysuria, dark urine or weakness in extremities. Is on cefuroxime for a sinus infection. Reports taking all of her PM meds prior to the fall (includes tramadol, gabapentin, metaxalone and topiramate). Physical Exam (per Admitting): General Appearance: WD/WN, no apparent distress (Had a difficult time concentrating during interview. ) Head: normocephalic, atraumatic Eyes: normal inspection, PERRL, EOMI, sclerae normal, + pertinent finding ( Pinpoint pupils ) ENT: normal ENT inspection, hearing grossly normal, pharynx normal (Dry mucous membranes ) Neck: supple, no adenopathy, trachea midline Respiratory/Chest: chest non-tender, lungs clear, normal breath sounds, no respiratory distress, no accessory muscle use Cardiovascular: regular rate, rhythm, no murmur, normal peripheral pulses Abdomen/GI: normal bowel sounds, soft, no organomegaly, + tenderness ( diffuse TTP) Back: normal inspection Extremities/Musculoskelatal: no calf tenderness, no pedal edema, + pertinent finding (L knee effusion with small areas of bruising. ROM intact but painful. ) Neurologic/Psych: no motor/sensory deficits, alert, normal mood/affect, oriented x 3, + pertinent finding (Circumstantial speech) Skin: normal color, warm/dry, no rash Hospital Course Rhabdomyolysis: 06/01 CPK is trending down hold Lasix now off of IVFs and continue oral intake PT/OT stable for discharge home vs. SNF -related to fall and lying on the ground for unknown period of time -CPK trending down to 11,526-->7000s-->5000's-->3000's-->2000's-->1600 -complains of ongoing myalgias mostly in legs/thighs -Cr slightly elevated at 1.22 (baseline ~1) -no evidence to suggest compartment syndrome -US negative for DVT -PRN analgesia -IV fluids with potassium supplement initially, now off and taking adequate PO -continue to monitor lytes and renal function -given a dose of lasix x 2 days due to LE edema and patient stating the edema was making her pain worse, however Cr is slowly worsening (1.1 today) will therefore hold off on any additional diuretic Fall, Possible Syncope: -patient does not recall events surrounding why/how she fell, unknown how long she was down, +LOC -CT head negative -EKG without changes -L humerus, pelvis, femur and tibia/fibula films without acute fracture/ dislocations, + presence of osteopenia and degenerative changes -Orthostatic vitals negative -EEG to rule out seizure although unlikely as no additional events have occurred since admission -TTE EF 60-65% -no events on tele -fall precautions -MRI lumbar spine; metallic artifact from prior back surgery was present; negative for spinal stenosis; possible mild narrowing of the neuroforamina bilaterally on osteophytic bases L5-S1. -will also consult Ortho regarding knee pain and effusion noted on x ray -patient is concerned regarding UDS positive for morphine and adamantly denies taking any narcotic medications except tramadol and ativan; patient requests re- test of UDS which is positive for oxycodone Elevated troponin: -likely related to fall -Initial 0.046, repeat decreased to 0.036 -Denies CP, no EKG changes -no events on tele -TTE without any wall motion abnormality; EF 60-65% HTN: -continue home cardizem Bipolar disorder: -stable -continue topamax, latuda Depression: -continue cymbalta Hypothyroidism: -continue levoxyl -TSH normal Fibromyalgia: -continue prednisone, metaxalone, gabapentin Osteopenia: -continue Vit D, calcium Dispo: Awaiting insurance approval for SNF for rehab; [facility] [employer] was denied Total time spent on discharge = 45 minutes This includes examination of the patient, discharge planning, medication reconciliation, and communication with other providers. Discharge Instructions Please follow-up with your primary care physician after stay at the [facility]
[2017-06-01 14:54] VITALS: BP 157/84; PULSE 71; TEMP 36.7; O2SAT 94
[2017-06-01 15:55] VITALS: BP 148/96; PULSE 83; TEMP 36.6; O2SAT 95
[2017-06-01] MEDS: TRAMADOL HCL 50 MG TAB PO PRN (16:46)
== END 2017-06-01 18:01 | DRG 683 ==
LOC: EDBD 16:05 → C.EDB 16:07 → C.2T 20:13 → ENRESERV 20:29 → CANRESERV 05-25 10:18 → ENRESERV 05-25 10:22 → C.MS2W 05-25 11:12
PROVIDERS: ADMIT Internal Medicine; ATTEND Family Medicine
DX: N17.9 Acute kidney failure, unspecified (principal); M62.82 Rhabdomyolysis; E87.6 Hypokalemia; F31.9 Bipolar disorder, unspecified; F60.3 Borderline personality disorder; M79.7 Fibromyalgia; S80.02XA Contusion of left knee, initial encounter; I10 Essential (primary) hypertension; R55 Syncope and collapse; M85.80 Other specified disorders of bone density and structure, unspecified site; Z87.891 Personal history of nicotine dependence; Z96.643 Presence of artificial hip joint, bilateral; R19.7 Diarrhea, unspecified; W19.XXXA Unspecified fall, initial encounter; Z80.9 Family history of malignant neoplasm, unspecified; Z82.49 Family history of ischemic heart disease and other diseases of the circulatory system

== ENCOUNTER → 2017-06-05 | Outpatient (CLI) | payer BC ==
[~2017-06-05] MED LIST changes: -ATV/1 PO; -BROM0.07 OPR; +CEPH500C PO; -CEPH500C2 PO; -HYDR-5688 PO; +HYG/25 PO; -METF1TAB53 PO; +NRN600 PO; +NUTRCAP11 PO; +POLY335019 PO; +POTA-639 PO; -POTA20TA16 PO; -PRED1SUS17 OPR
== END | disposition home or self-care (01) ==
LOC: C.LABVPSUA 11:52
PROVIDERS: ATTEND Internal Medicine Critical Care Medicine
DX: Z01.89 Encounter for other specified special examinations (principal)

== ENCOUNTER 2017-06-23 12:20 | Inpatient (IN) | payer BC ==
[~2017-06-23] VITALS: Ht 167.6 cm; Wt 70.7 kg
[~2017-06-23 12:20] MED LIST changes: -CEPH500C PO; -NRN600 PO; -NUTRCAP11 PO; -POLY335019 PO; -POTA-639 PO; +POTA20TA16 PO
[2017-06-23] MEDS ORDERED: POLY335019 PO (13:32)
[2017-06-23] MEDS ORDERED: NUTRCAP11 PO (13:32)
[2017-06-23] MEDS ORDERED: NRN600 PO (13:32)
--- NOTE | 2017-06-23 13:36 | EMERGENCY ROOM VISIT NOTE ---
History Report prepared by Kevin: Edson Alvarez Under the Supervision of: Dr. Connor Rodriguez M.D. First contact with patient: 12:38 Chief Complaint: MENTAL HEALTH EVALUATION Stated Complaint: MENTAL HEALTH History of Present Illness The patient is a 61 year old female who presents to the Emergency Room with suicidal ideation. Per her clam bed worker, Brandon, the patient was recently at the [facility] on 06/21/2017 because she fell three weeks ago and the clam bed worker noticed she was laying on her left leg for several hours. Per her clam bed worker, he reports the patient had a sinus infection and endorses head strike. The patient had Rhabdomyolysis, low grade fevers, and sinus congestion at the [facility] where her antibiotics were discontinued. The patient has a pertinent medical history of bipolar disorder, and reports her symptoms have gotten progressively worse with increased episodes of confusion. She has fleeting thoughts of killing herself and has tried to kill herself in the past by slicing her arm and overdosing. The patient endorses dysuria, and limited per os intake. She denies nausea, vomiting, cough, and SOB. She has a history of IBS, fibromyalgia, and hip replacement surgery. The patient reports her has and that she is concerned for the welfare of her pet cats. Of note, Dr. Hernandez is her psychiatrist. Source of History: patient, caregiver (Brandon) History Limited By: AMS Onset: 3 weeks ago Position: head Quality: other (suicidal ideation) Timing: constant Associated Symptoms: + fevers, + diarrhea (unchanged from baseline), No cough, No SOB, No nausea, No vomiting Review of Systems See HPI for pertinent positives and negatives. A total of ten systems were reviewed and were otherwise negative. Past Medical & Surgical Medical Problems: (1) Bipolar disorder (2) Borderline personality disorder (3) Depression (4) Fibromyalgia (5) HTN (hypertension) Surgical Problems: (1) H/O inguinal hernia repair (2) History of back surgery (3) Status post total hip replacement, left Family History Cancer FH: heart disease FHx: lung disease Hypertension Social History Smoking Status: Former Smoker Alcohol Use: none Drug Use: none Marital Status: Housing Status: lives with family Occupation Status: retired, disabled Current/Historical Medications Scheduled Calcium Citrate-Vitamin D (Citracal + D3 Maximum), 1 TAB PO BID Chlorthalidone (Hygroton), 25 MG PO QAM Diltiazem Hcl Coated Beads (Cardizem La), 120 MG PO QAM Duloxetine HCl (Cymbalta), 30 MG PO QAM Duloxetine Hcl (Cymbalta), 60 MG PO QAM Ferrous Sulfate (Kp Ferrous Sulfate), 325 MG PO BIDM Gabapentin (Neurontin), 1,200 MG PO TID Levothyroxine Sodium (Synthroid), 50 MCG PO QAM Losartan Potassium (Cozaar), 100 MG PO QAM Lurasidone Hcl (Latuda), 20 MG PO HS Meloxicam (Mobic), 7.5 MG PO BID Metaxalone (Skelaxin), 800 MG PO QID Nutritional Supplements (Colon Formula), 1 CAP PO DAILY Omeprazole (Prilosec), 20 MG PO BID Polyethylene Glycol 3350 (Miralax), 17 GM PO DAILY Potassium Ext Rel (Klor-Con), 20 MEQ PO QAM Prednisone (Prednisone), 5 MG PO QAM Topiramate (Topamax), 150 MG PO HS Triamcinolone Acet (Triamcinolone Acetonide), 1 APPLN TOP BID Scheduled PRN Acetaminophen (Tylenol), 2 TAB PO Q4H PRN for Pain Albuterol Sulfate (Proair Respiclick), 2 PUFFS INH QID PRN for Shortness of Breath Diclofenac Sodium (Topical) (Voltaren 1% Top Gel), 1 DOSE EXT QID PRN for Pain Fluticasone Propionate (Nasal) (Flonase Allergy Relief), 2 SPRAY MEAGAN DAILY PRN for PRN Tramadol (Ultram), 2 TAB PO Q6H PRN for Pain Allergies Coded Allergies: Cyclobenzaprine (Verified Allergy, Intermediate, RASH AND SWELLING, ) Fentanyl (Verified Allergy, Unknown, MAJOR FEET SWELLING, 06/23/17) Oxcarbazepine (Verified Allergy, Unknown, UNKNOWN - PT DOESN'T REMEMBER, 06/23/17) Risperidone (Verified Adverse Reaction, Intermediate, exhaustion, 06/23/17) Clonazepam (Verified Adverse Reaction, Mild, nausea, 06/23/17) Physical Exam Vital Signs Date Time Temp Pulse Resp B/P (MAP) Pulse Ox O2 Delivery O2 Flow Rate FiO2 06/23/17 16:53 80 19 177/104 97 Room Air 06/23/17 14:30 73 18 164/94 97 Room Air 06/23/17 12:38 37.2 82 18 147/77 94 Room Air Physical Exam GENERAL: Awake, alert, depressed affect, in no distress HENT: Normocephalic, atraumatic. Oropharynx unremarkable. Dry mucous membranes. EYES: Normal conjunctiva. Sclera non-icteric. NECK: Supple. No nuchal rigidity. FROM. No JVD. RESPIRATORY: Clear to auscultation. CARDIAC: Regular rate, normal rhythm. Extremities warm and well perfused. Pulses equal. ABDOMEN: Soft, non-distended. No tenderness to palpation. No rebound or guarding. No masses. RECTAL: Deferred. MUSCULOSKELETAL: Chest examination reveals no tenderness. The back is symmetrical on inspection without obvious abnormality. There is no CVA tenderness to palpation. No joint edema. LOWER EXTREMITIES: Calves are equal size bilaterally and non-tender. +1 edema. No discoloration. NEURO: Normal sensorium. No sensory or motor deficits noted. PSCYH: +SI, no plan. SKIN: No rash or jaundice noted. Medical Decision & Procedures Laboratory Results 06/23/17 13:51 Red Blood Count 3.64, Mean Corpuscular Volume 92.3, Mean Corpuscular Hemoglobin 32.1, Mean Corpuscular Hemoglobin Concent 34.8, Mean Platelet Volume 8.9, Neutrophils (%) (Auto) 76.8, Lymphocytes (%) (Auto) 15.2, Monocytes (%) (Auto) 6.6, Eosinophils (%) (Auto) 0.6, Basophils (%) (Auto) 0.5, Neutrophils # (Auto) 4.99, Lymphocytes # (Auto) 0.99, Monocytes # (Auto) 0.43, Eosinophils # (Auto) 0.04, Basophils # (Auto) 0.03 06/23/17 13:51 Test 06/23/17 00:00 06/23/17 13:25 06/23/17 13:51 Free Triiodothyronine 2.28 pg/ml (2.30-4.20) Urine Color YELLOW Urine Appearance CLEAR (CLEAR) Urine pH 7.0 (4.5-7.5) Urine Specific [place] 1.014 (1.000-1.030) Urine Protein NEG (NEG) Urine Glucose (UA) NEG (NEG) Urine Ketones 3+ (NEG) Urine Occult Blood NEG (NEG) Urine Nitrite NEG (NEG) Urine Bilirubin NEG (NEG) Urine Urobilinogen NEG (NEG) Urine Leukocyte Esterase NEG (NEG) Urine Opiates Screen POS (NEG) Urine Methadone, Qualitative NEG (NEG) Urine Barbiturates NEG (NEG) Urine Phencyclidine (PCP) Level NEG (NEG) Ur Amphetamine/Methamphetamine NEG (NEG) MDMA (Ecstasy) Screen NEG (NEG) Urine Benzodiazepines Screen NEG (NEG) Urine Cocaine Metabolite NEG (NEG) Urine Marijuana (THC) NEG (NEG) White Blood Count 6.50 K/uL (4.8-10.8) Red Blood Count 3.64 M/uL (4.2-5.4) Hemoglobin 11.7 g/dL (12.0-16.0) Hematocrit 33.6 % (37-47) Mean Corpuscular Volume 92.3 fL (80-100) Mean Corpuscular Hemoglobin 32.1 pg (25-34) Mean Corpuscular Hemoglobin Concent 34.8 g/dl (32-36) Platelet Count 160 K/uL (130-400) Mean Platelet Volume 8.9 fL (7.4-10.4) Neutrophils (%) (Auto) 76.8 % Lymphocytes (%) (Auto) 15.2 % Monocytes (%) (Auto) 6.6 % Eosinophils (%) (Auto) 0.6 % Basophils (%) (Auto) 0.5 % Neutrophils # (Auto) 4.99 K/uL (1.4-6.5) Lymphocytes # (Auto) 0.99 K/uL (1.2-3.4) Monocytes # (Auto) 0.43 K/uL (0.11-0.59) Eosinophils # (Auto) 0.04 K/uL (0-0.5) Basophils # (Auto) 0.03 K/uL (0-0.2) RDW Standard Deviation 40.5 fL (36.4-46.3) RDW Coefficient of Variation 11.9 % (11.5-14.5) Immature Granulocyte % (Auto) 0.3 % Immature Granulocyte # (Auto) 0.02 K/uL (0.00-0.02) Anion Gap 10.0 mmol/L (3-11) Est Creatinine Clear Calc Drug Dose 64.2 ml/min Estimated GFR () 85.1 Estimated GFR (Non- 73.4 BUN/Creatinine Ratio 19.3 (10-20) Calcium Level 9.7 mg/dl (8.5-10.1) Total Bilirubin 0.7 mg/dl (0.2-1) Direct Bilirubin 0.2 mg/dl (0-0.2) Aspartate Amino Transf (AST/SGOT) 65 U/L (15-37) Alanine Aminotransferase (ALT/SGPT) 31 U/L (12-78) Alkaline Phosphatase 62 U/L (45-117) Total Protein 6.5 gm/dl (6.4-8.2) Albumin 3.4 gm/dl (3.4-5.0) Globulin 3.1 gm/dl (2.5-4.0) Albumin/Globulin Ratio 1.1 (0.9-2) Thyroid Stimulating Hormone (TSH) 0.228 uIu/ml (0.300-4.500) Free Thyroxine 1.19 ng/dl (0.80-1.60) Ethyl Alcohol mg/dL < 3.0 mg/dl (0-3) Laboratory results reviewed by me Medications Administered Medications (Trade) Dose Ordered Sig/Yovany Route Start Time Stop Time Status Last Admin Dose Admin Gabapentin (Neurontin Tab) 300 mg NOW STAT PO 06/23/17 14:33 06/23/17 14:36 DC 06/23/17 15:08 300 MG Tramadol HCl (Ultram Tab) 50 mg NOW STAT PO 06/23/17 14:33 06/23/17 14:36 DC 06/23/17 15:08 50 MG Acetaminophen (Tylenol Tab) 650 mg Q4H PRN PO 06/23/17 17:00 07/23/17 16:59 06/24/17 00:16 650 MG Diclofenac Sodium (Voltaren 1% Top Gel) 1 appln QID PRN EXT 06/23/17 17:00 07/23/17 16:59 06/24/17 00:18 1 APPLN Metaxalone (Skelaxin Tab) 800 mg QID PO 06/23/17 17:00 07/23/17 16:59 06/23/17 20:17 800 MG Tramadol HCl (Ultram Tab) 100 mg Q6H PRN PO 06/23/17 17:00 07/23/17 16:59 06/23/17 23:43 100 MG ECG Indication: other (sinus rhythym with prematrure atrial complexes) Rate (beats per minute): 74 Findings: no acute ischemic change ED Course 151: I spoke with Dasia and let her know that the patient is medically cleared. 1726: I spoke with Dasia and the patient is being admitted to [address] [place] [address]. Medical Decision I reviewed the patient's past medical history, medications, and the nursing notes as described above. The patient's presentation and history were concerning for depression, suicidal ideation, bipolar disorder, dehydration, electrolyte abnormality, and UTI. The patient is a 61-year-old woman with a past medical history of bipolar disorder and prior suicide attempts presents to emergency department for suicidal ideation and depressed mood and memory problems in the setting of being discharged from rehabilitation on Wednesday after being admitted for rhabdomyolysis in the setting of a fall per history of present illness. On arrival the patient is no acute distress, afebrile with stable vital signs. She has a depressed mood and endorses thoughts of wanting to . Has tangential thought process. She also feels that she cant remember much of the past few days, and likely has not taken her medications, which include Latuda and Cymbalta. Labs were unremarkable. The patient was medically cleared. Given the patient's report of suicidal ideation with prior attempts the patient meets criteria for inpatient psychiatric admission. Patient was thus admitted to [facility] for further management. Impression Primary Impression: Suicidal ideation Scribe Attestation The scribe's documentation has been prepared under my direction and personally reviewed by me in its entirety. I confirm that the note above accurately reflects all work, treatment, procedures, and medical decision making performed by me. Departure Information Referrals [facility] (PCP) Patient Instructions My [facility]
[2017-06-23 13:53] LABS: MANUAL MICROSCOPIC REQUIRED? NO; REVIEW REQ? NO; URINE APPEARANCE CLEAR (CLEAR); URINE BILIRUBIN NEG (NEG); URINE COLOR YELLOW; URINE NITRITE NEG (NEG); URINE SPECIFIC GRAVITY 1.014 (1.000-1.030); UROBILINOGEN NEG (NEG)
[2017-06-23 14:13] LABS: BENZODIAZEPINE, URINE NEG (NEG); COCAINE,URINE NEG (NEG); PHENCYCLIDINE, URINE NEG (NEG)
[2017-06-23 14:23] LABS: BASO % 0.5 %; BASO ABS # 0.03 K/uL (0-0.2); COMPLETE YES; EOS % 0.6 %; HEMATOCRIT 33.6 % (37-47); IG% 0.3 %; LYMPH % 15.2 %; LYMPH ABS # 0.99 K/uL (1.2-3.4); MEAN CELL VOLUME 92.3 fL (80-100); MEAN CORPUSCULAR HEMOGLOBIN 32.1 pg (25-34); MEAN CORPUSCULAR HGB CONC 34.8 g/dl (32-36); MEAN PLATELET VOLUME 8.9 fL (7.4-10.4); MONO % 6.6 %; NEUT % 76.8 %; PLATELET COUNT 160 K/uL (130-400); RED BLOOD COUNT 3.64 M/uL (4.2-5.4)
[2017-06-23] MEDS ORDERED: GABA-113 PO (14:26)
[2017-06-23] MEDS ORDERED: GABAPENTIN 600 MG TAB PO STA (14:33)
[2017-06-23] MEDS ORDERED: TRAMADOL HCL 50 MG TAB PO STA (14:33)
[2017-06-23 14:41] LABS: BUN/CREATININE RATIO 19.3 (10-20); CALCIUM 9.7 mg/dl (8.5-10.1); CREATININE 0.85 mg/dl (0.60-1.20); POTASSIUM 3.2 mmol/L (3.5-5.1)
[2017-06-23 14:51] LABS: ALB/GLOB RATIO 1.1 (0.9-2); THYROID STIMULATING HORMONE 0.228 uIu/ml (0.300-4.500)
[2017-06-23 16:53] VITALS: O2SAT 97
[2017-06-23] MEDS ORDERED: FLUTICASONE PROPIONATE NA SPR 16 GM BTL NAE PRN (17:00)
[2017-06-23] MEDS ORDERED: ALUMINUM/MAGNESIUM SUSP 30 ML UDC PO PRN (17:00)
[2017-06-23] MEDS ORDERED: BISMUTH SUBSALICYLATE PER ML OMNICELL CHARGE PO PRN (17:00)
[2017-06-23] MEDS ORDERED: MAGNESIUM HYDROXIDE SUSP 30 ML UDC PO PRN (17:00)
[2017-06-23] MEDS ORDERED: SODIUM CHLORIDE 0.65% NA SOLN 45 ML (OCEAN) PRN (17:00)
[2017-06-23] MEDS ORDERED: hydrOXYzine HCL 25 MG TAB PO PRN (17:00)
[2017-06-23] MEDS ORDERED: ALBUTEROL HFA 8 GM INHALER INH PRN (17:30)
[2017-06-23 20:03] VITALS: BP 177/104; PULSE 103; TEMP 37.2; Ht 167.6 cm; Wt 70.7 kg
[2017-06-23] MEDS: METAXALONE 800 MG TAB PO SCH ×2 (20:17→22:00)
[2017-06-23] MEDS: LURASIDONE HCL 40 MG TAB PO SCH (20:18)
[2017-06-23] MEDS: FERROUS SULFATE 325 MG TAB PO SCH (20:19)
[2017-06-23] MEDS: ACETAMINOPHEN 325 MG TAB PO PRN (20:49)
[2017-06-23] MEDS: MELOXICAM 7.5 MG TAB PO SCH (22:10)
[2017-06-23] MEDS: GABAPENTIN 300 MG CAP PO SCH (22:11)
[2017-06-23] MEDS: PANTOprazole SOD 40 MG TAB PO SCH (22:11)
[2017-06-23] MEDS: TOPIRAMATE 100 MG TAB PO SCH (22:13)
[2017-06-23] MEDS: TRIAMCINOLONE ACET 0.1% OINT 15 GM TUBE TOP SCH (22:15)
[2017-06-23] MEDS: CALCIUM 600MG + VIT D 400 IU TAB PO SCH (22:16)
[2017-06-23] MEDS: TRAMADOL HCL 50 MG TAB PO PRN (23:43)
[2017-06-24] MEDS: ACETAMINOPHEN 325 MG TAB PO PRN ×5 (00:16→21:03)
[2017-06-24] MEDS: DICLOFENAC SOD 1% GEL 100 GM TUBE EXT PRN ×4 (00:18→18:57)
[2017-06-24] MEDS: TRAMADOL HCL 50 MG TAB PO PRN ×3 (06:13→23:52)
[2017-06-24 06:52] VITALS: BP_SYST 137; BP_SYST 155; BP_DIAS 90; PULSE 103; PULSE 85; TEMP 37
[2017-06-24] MEDS: CALCIUM 600MG + VIT D 400 IU TAB PO SCH ×2 (08:51→21:03)
[2017-06-24] MEDS: LEVOTHYROXINE 50 MCG TAB PO SCH (08:51)
[2017-06-24] MEDS: LOSARTAN POTASSIUM 50 MG TAB PO SCH (08:54)
[2017-06-24] MEDS: DULOXETINE HCL 60 MG CAP PO SCH (08:55)
[2017-06-24] MEDS: GABAPENTIN 300 MG CAP PO SCH ×3 (08:55→21:04)
[2017-06-24] MEDS: METAXALONE 800 MG TAB PO SCH ×4 (08:55→21:09)
[2017-06-24] MEDS: DULOXETINE (CYMBALTA) 30 MG CAP PO SCH (08:55)
[2017-06-24] MEDS: MELOXICAM 7.5 MG TAB PO SCH ×2 (08:55→21:04)
[2017-06-24] MEDS: CHLORTHALIDONE 25 MG TAB PO SCH (08:55)
[2017-06-24] MEDS: FERROUS SULFATE 325 MG TAB PO SCH ×2 (08:55→17:31)
[2017-06-24] MEDS: PANTOprazole SOD 40 MG TAB PO SCH ×2 (08:55→21:06)
[2017-06-24] MEDS: POTASSIUM CHLORIDE 20 MEQ TABCR PO SCH (08:56)
[2017-06-24] MEDS: DILTIAZEM HCL 120 MG CAPCR PO SCH (08:56)
[2017-06-24] MEDS: POLYETHYLENE (MIRALAX) 17 GM PACK PO SCH (08:56)
[2017-06-24] MEDS ORDERED: NUTRITIONAL SUPPLEMENTS PO SCH (09:00)
[2017-06-24] MEDS: TRIAMCINOLONE ACET 0.1% OINT 15 GM TUBE TOP SCH (09:00)
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
[2017-06-24] MEDS: LURASIDONE HCL 40 MG TAB PO SCH (17:32)
[2017-06-24] MEDS: TOPIRAMATE 100 MG TAB PO SCH (21:07)
[2017-06-24] MEDS ORDERED: TRIAMCINOLONE ACET 0.1% OINT 15 GM TUBE TOP PRN (22:00)
[2017-06-25] MEDS: ACETAMINOPHEN 325 MG TAB PO PRN ×5 (01:12→22:57)
[2017-06-25] MEDS: DICLOFENAC SOD 1% GEL 100 GM TUBE EXT PRN ×5 (01:13→22:55)
[2017-06-25] MEDS: TRAMADOL HCL 50 MG TAB PO PRN ×3 (06:58→21:39)
[2017-06-25 07:05] VITALS: BP 152/100; PULSE 103; PULSE 73; TEMP 37.1
[2017-06-25] MEDS: LEVOTHYROXINE 50 MCG TAB PO SCH (07:49)
[2017-06-25] MEDS: CALCIUM 600MG + VIT D 400 IU TAB PO SCH ×2 (08:35→21:12)
[2017-06-25] MEDS: DILTIAZEM HCL 120 MG CAPCR PO SCH (08:36)
[2017-06-25] MEDS: FERROUS SULFATE 325 MG TAB PO SCH ×2 (08:37→17:24)
[2017-06-25] MEDS: LOSARTAN POTASSIUM 50 MG TAB PO SCH (08:37)
[2017-06-25] MEDS: DULOXETINE (CYMBALTA) 30 MG CAP PO SCH (08:37)
[2017-06-25] MEDS: DULOXETINE HCL 60 MG CAP PO SCH (08:37)
[2017-06-25] MEDS: CHLORTHALIDONE 25 MG TAB PO SCH (08:38)
[2017-06-25] MEDS: METAXALONE 800 MG TAB PO SCH ×4 (08:39→21:12)
[2017-06-25] MEDS: MELOXICAM 7.5 MG TAB PO SCH ×2 (08:39→21:12)
[2017-06-25] MEDS: POTASSIUM CHLORIDE 20 MEQ TABCR PO SCH (08:39)
[2017-06-25] MEDS: PANTOprazole SOD 40 MG TAB PO SCH ×2 (08:39→21:12)
[2017-06-25] MEDS: GABAPENTIN 300 MG CAP PO SCH ×3 (08:39→21:14)
[2017-06-25] MEDS: POLYETHYLENE (MIRALAX) 17 GM PACK PO SCH (08:55)
[2017-06-25] MEDS ORDERED: DULOXETINE (CYMBALTA) 30 MG CAP PO ONE (12:15)
[2017-06-25] MEDS ORDERED: CLONIDINE HCL 0.1 MG TAB PO PRN (13:00)
--- NOTE | 2017-06-25 13:43 | Psychiatric Progress Notes ---
Progress Note Date of Service Jun 25, 2017. Interval History Kerline Odom is a 61-year-old female who currently lives alone in [place] with assistance from an "logging assistant", Brandon. Kerline Odom was admitted on a 201 voluntary commitment after a few days of confusion and disorientation. Patient is admitted after [facility] from [facility] following a fall and hospitalization at [facility]. The patient was brought to the ED by her logging assistant, Brandon. Information provided by the patient is considered to be moderately reliable as she was confused for several days prior to admission. Chief Complaint "My anxiety keeps flaring up and my pain is much worse". Subjective Patient was seen & assessed interval progress reviewed with Treatment Team. - poor sleep last night ~2 hours, restless and walking all night - meeting with TYRONE Santacruz scheduled for today - meeting with Brandon scheduled for 06/28 - PT consult complete: better than during previous hospitalization Kerline Odom is a 61-year-old female diagnosed with bipolar disorder, predominantly depressed, borderline personality disorder, and 6 month period of grief following the loss of her in December 2016. Pt states she has been "feeling rough" reporting that she has been frequently bursting into tears, dealing with significant grief, and has noticed extreme fluctuations in her mood. She becomes tearful frequently during the interview and states, "I'll be sobbing one minute, but as soon as I walk out the door I'll be giggling". Pt reports that she has had a very hard time dealing with her husbands and feels "my world has just exploded". She states, "I don't feel safe or happy without him, he was my tether to this world". Pt reports ongoing SI stating she will have thoughts of "it would be easier not to try anymore". Pt report she has noticed worsening of anxiety and pain recently. After consideration, she feels this may be a "cycle" she is going through stating "I get anxious so my pain is worse, then I get even more anxious about how much pain I'm in". Pt has a history of fibromyalgia and states that when she is anxious her "entire body hurts as if I have arthritis everywhere." Her sleep has continued to be poor due to ongoing pain and anxiety. She continues to remark that her days on the unit have been overwhelming and inability to sleep has not helped. Pt has been participating in group therapy and group activities and seems committed to working through her grief and anxiety. She also reports feeling that additional validation would be beneficial, stating "I'd like to know that I 'm doing the right things and making progress". She reports sharing in group therapy today that "it feels as if the bottom has just fallen out and I'm left to put everything back in place". Pt states she is unsure how to do that without assistance. Review of Systems Constitutional: reports fatigue Respiratory: denies Cardiovascular: denies Abdomen: denies Musculoskeletal: reports ongoing "full body" pain Neurologic: denies Psychiatric: denies other than stated above Sleep Information Total Hours of Sleep: 2.50 Meal Information Percent of Breakfast Consumed: 100 Percent of Lunch Consumed: 50 Percent of Dinner Consumed: 50 Mental Status Exam During interview pt is: alert and oriented, cooperative Appearance: appropriately dressed (Wearing robe and slippers from home.), appropriately groomed Eye contact is: good Motor behavior is: no abnormal motor movements, other (ambulating with cane) Speech: normal in rate, rhythm & volume Affect: depressed, tearful, labile (frequent outbursts of tearfulness) Mood is: depressed Thought process: goal directed, tangential Thought content: preoccupation (with pain), reality based without delusions Suicidal thought are: present, Plan: denied, Intent: denied Homicidal thoughts are: denied Hallucinations: denies auditory, denies visual Cognition: attention grossly intact, language grossly intact Intelligence estimated to be: consistent with level of education Insight: impaired Judgement: impaired Impression Kerline Odom is a 61 y/o female with history of Bipolar disorder, currently depressed, without psychotic features. She also reports recent mental status change with confusion and disorientation for the past 3 days. Pt was referred for treatment by her friend, Brandon, who was concerned about her mental state as she was not "acting herself". Pt reports SI stating she has been having "difficulty sustaining the idea that there is still value in life". She presented having been unsure of medication compliance over the past 3 days. Plan (1) Suicidal ideation 06/24 - Feeling of not wanting to be alive with history of previous suicide attempt. Complicated by reported altered mental status for past 3 days. - 15 minute suicide checks - Attending groups and group therapy regularly - Family meeting if desired by patient - suggested one with friend, Brandon 06/25 - SI reported to be ongoing per patient - continue as above (2) Bipolar disorder 06/24 - Bipolar diagnosis in 2004, predominantly depressed - Questions if taking medications appropriately, or at all over the last 3 days - For time being, will restart on Latuda 20mg PO qHS, Topamax 150mg PO qHS, and Cymbalta 90mg PO qAM for management of depressive symptoms related to her bipolar disorder. Pt also taking Neurontin 1200mg PO TID for management of pain with fibromyalgia. - Will coordinate with outpatient therapist/psychiatric provider, Dr. Karen Hernandez, to assess recommendations should alternative therapy be necessary. 06/25 - Pt request for increase in Cymbalta as it has been beneficial to her in the past. One time dose of Cymbalta 30mg given now, will start Cymbalta 120mg PO qAM to begin tomorrow morning. - Also discussed increasing Latuda to target reported "mood swings", not started at this time, but alternative if increased Cymbalta is not effective - Spoke with pt's outpatient provider of 13 years, Karen Hernandez, Ph.D, S[employer] PANEL [employer]ANGER , who reports they had discussed the potential for increasing mood stabilization medication as an outpatient and would still recommend this as a consideration. She is happy to be contacted for continuity of care and is [facility], Wednesday, and Wednesday at . - Clonidine 0.1mg qHS PRN insomnia written to aid with poor sleep (3) Borderline personality disorder 06/24 - Restart psychiatric medications as dosed prior to admission - Recommend setting clear boundaries and limitations while on the unit. (4) Polypharmacy 06/24 - Pt reports not taking her medications as prescribed, stating she doses all of her pain medication (Neurontin 1200mg, Tramadol 100mg, Metaxalone 800mg, and extra-strength Tylenol 500mg) every 4 hours rather than every 6 hours. She reports it is the "first thing I do when I wake up every morning". - Pt denies taking Percocet or other controlled medications outside of the hospital or rehab setting. She questions why her drug screen is positive for opiates since she "has not taken any of that medication in about a week". Continues to believe it is a "false positive". She does report her 's medications have remained in her home after his as she as "not gotten around to getting rid of them". was prescribed liquid morphine injections; however, she denies having taken any of his medications. - Pt does admit she has not been taking medications correctly, if at all, for the past 3 days and has spoken with her friend, Brandon, about helping her to manage medications. She is planning to get a pill box and states he is willing to help her fill regularly. - Outpatient providers as well as providers from her stay at [facility] for rehab will be contacted to determine the intended length of treatment of prescribed pain medications. - Consider In-Home med management upon discharge if more assistance is needed to dose medications properly. (5) Fibromyalgia 06/24 - See above. Admits to more frequent dosing of pain medication than is prescribed. (6) Wound abscess 06/24 - Wound consult ordered. Will continue to evaluate healing and need for further treatment. (7) HTN (hypertension) Discharge / Aftercare Planning Primary Care Physician: Name: Dr Osman Date of Appointment: Jul 08, 2017 Time of Appointment: 10:45am Psychiatrist: Name: Dr Hernandez Date of Appointment: Jul 02, 2017 Time of Appointment: 11:45am Therapist: Name: Kerline Mathur [facility] Phone Number: [phone] Date of Appointment: Jun 30, 2017 Time of Appointment: 1:00pm Silver Holloware Assembler: Name: Ramya GuyEcho Date of Appointment: Jun 29, 2017 Time of Appointment: 11:00am Visit Code E&M Code: 54567 Inventory Assets Strengths: reports compliance with weekly outpatient treatment, strong friendship with logging assistantBrandon Needs: continued grief from husbands passing not fully addressed, ongoing medical problems requiring hospitalization and rehabilitation. Risk Factors Assessment : Yes /single/: Yes Health problems: Yes Mental Health Diagnoses: Yes Previous attempt: Yes Protective Factors Assessment Congregational beliefs: Yes Responsible for young children: No Employed: No Supportive family: No Data Vital Signs Last 24 Hrs: Date Time Temp Pulse Resp B/P (MAP) Pulse Ox O2 Delivery O2 Flow Rate FiO2 12/17 07:05 37.1 73 16 152/100 103 Meds Administered Last 24 Hrs: Meds Administered (Past 24Hrs) Medications (Trade) Dose Ordered Sig/Yovany Route Start Time Stop Time Status Last Admin Dose Admin Gabapentin (Neurontin Tab) 300 mg NOW STAT PO 06/23/17 14:33 06/23/17 14:36 DC 06/23/17 15:08 300 MG Tramadol HCl (Ultram Tab) 50 mg NOW STAT PO 06/23/17 14:33 06/23/17 14:36 DC 06/23/17 15:08 50 MG Acetaminophen (Tylenol Tab) 650 mg Q4H PRN PO 06/23/17 17:00 07/23/17 16:59 06/25/17 11:06 650 MG Chlorthalidone (Hygroton Tab) 25 mg QAM PO 06/24/17 09:00 07/24/17 08:59 06/25/17 08:38 25 MG Diclofenac Sodium (Voltaren 1% Top Gel) 1 appln QID PRN EXT 06/23/17 17:00 07/23/17 16:59 06/25/17 08:28 1 APPLN Duloxetine HCl (Cymbalta Cap) 30 mg QAM PO 06/24/17 09:00 06/25/17 12:09 DC 06/25/17 08:37 30 MG Duloxetine HCl (Cymbalta Cap) 60 mg QAM PO 06/24/17 09:00 06/25/17 12:20 DC 06/25/17 08:37 60 MG Gabapentin (Neurontin Cap) 1,200 mg TID PO 06/23/17 21:00 07/23/17 20:59 06/25/17 08:39 1,200 MG Levothyroxine Sodium (Synthroid Tab) 50 mcg DAILYBB PO 06/24/17 08:00 07/24/17 07:59 06/25/17 07:49 50 MCG Losartan Potassium (coZAAR TAB) 100 mg QAM PO 06/24/17 09:00 07/24/17 08:59 06/25/17 08:37 100 MG Meloxicam (Mobic Tab) 7.5 mg BID PO 06/23/17 21:00 07/23/17 20:59 12/8/17 08:39 7.5 MG Metaxalone (Skelaxin Tab) 800 mg QID PO 06/23/17 17:00 07/23/17 16:59 06/25/17 12:42 800 MG Potassium Chloride (Klor-Con Tab) 20 meq QAM PO 06/24/17 09:00 07/24/17 08:59 06/25/17 08:39 20 MEQ Prednisone (PredniSONE TAB) 5 mg QAM PO 06/24/17 09:00 07/24/17 08:59 06/25/17 08:39 5 MG Topiramate (Topamax Tab) 150 mg HS PO 06/23/17 21:00 07/23/17 20:59 06/24/17 21:07 150 MG Tramadol HCl (Ultram Tab) 100 mg Q6H PRN PO 06/23/17 17:00 07/23/17 16:59 06/25/17 06:58 100 MG Triamcinolone Acetonide (Kenalog 0.1% Oint) 1 appln BID TOP 06/23/17 21:00 06/24/17 11:45 DC 06/23/17 22:15 1 APPLN Calcium/Vitamin D (Caltrate Plus Tab) 1 tab BID PO 06/23/17 21:00 07/23/17 20:59 06/25/17 08:35 1 TAB Diltiazem HCl (Cardizem Cd Cap) 120 mg QAM PO 06/24/17 09:00 06/25/17 13:00 DC 06/25/17 08:36 120 MG Ferrous Sulfate (Feosol Tab) 325 mg BIDM PO 06/23/17 18:30 07/23/17 18:29 06/25/17 08:37 325 MG Pantoprazole Sodium (Protonix Tab) 40 mg BID PO 06/23/17 21:00 07/23/17 20:59 06/25/17 08:39 40 MG Polyethylene (Miralax Powder Packet) 17 gm DAILY PO 06/24/17 09:00 06/25/17 13:01 DC 06/25/17 08:55 17 GM Lurasidone HCl (Latuda Tab) 20 mg QDD PO 06/23/17 18:15 07/23/17 18:14 06/24/17 17:32 20 MG Duloxetine HCl (Cymbalta Cap) 30 mg ONE ONCE PO 06/25/17 12:15 06/25/17 12:16 DC 06/25/17 12:42 30 MG Problem Qualifiers (1) Bipolar disorder: Active/Remission status: currently active Current bipolar episode type: depressed Current episode severity: severe Psychotic features: without psychotic features Qualified Codes: F31.4 - Bipolar disorder, current episode depressed, severe, without psychotic features
[2017-06-25] MEDS: LURASIDONE HCL 40 MG TAB PO SCH (17:24)
[2017-06-25] MEDS: TOPIRAMATE 100 MG TAB PO SCH (21:12)
[2017-06-25 22:18] VITALS: BP 145/89; PULSE 77
[2017-06-26] MEDS: hydrOXYzine HCL 25 MG TAB PO PRN ×3 (00:30→23:20)
[2017-06-26 07:27] LABS: POTASSIUM 3.2 mmol/L (3.5-5.1)
[2017-06-26 07:41] LABS: CHOLESTEROL/HDL RATIO 1.9; THYROID STIMULATING HORMONE 0.424 uIu/ml (0.300-4.500)
[2017-06-26] MEDS: LEVOTHYROXINE 50 MCG TAB PO SCH (08:52)
[2017-06-26] MEDS: CALCIUM 600MG + VIT D 400 IU TAB PO SCH ×2 (08:52→21:22)
[2017-06-26] MEDS: DULOXETINE HCL 60 MG CAP PO SCH (08:53)
[2017-06-26] MEDS: LOSARTAN POTASSIUM 50 MG TAB PO SCH (08:53)
[2017-06-26] MEDS: DILTIAZEM HCL 120 MG CAPCR PO SCH (08:53)
[2017-06-26] MEDS: FERROUS SULFATE 325 MG TAB PO SCH ×2 (08:54→17:32)
[2017-06-26] MEDS: MELOXICAM 7.5 MG TAB PO SCH ×2 (08:54→21:22)
[2017-06-26] MEDS: PANTOprazole SOD 40 MG TAB PO SCH ×2 (08:54→21:22)
[2017-06-26] MEDS: POTASSIUM CHLORIDE 20 MEQ TABCR PO SCH (08:54)
[2017-06-26] MEDS: GABAPENTIN 300 MG CAP PO SCH ×3 (08:54→21:22)
[2017-06-26] MEDS: CHLORTHALIDONE 25 MG TAB PO SCH (08:54)
[2017-06-26] MEDS: METAXALONE 800 MG TAB PO SCH ×4 (08:55→21:23)
[2017-06-26] MEDS: POLYETHYLENE (MIRALAX) 17 GM PACK PO SCH (08:55)
[2017-06-26] MEDS: TRAMADOL HCL 50 MG TAB PO PRN ×3 (09:12→21:25)
[2017-06-26 09:30] VITALS: BP 126/85; PULSE 75; TEMP 37.2
[2017-06-26] MEDS: ACETAMINOPHEN 325 MG TAB PO PRN ×3 (10:04→20:38)
[2017-06-26] MEDS: DICLOFENAC SOD 1% GEL 100 GM TUBE EXT PRN ×2 (11:52→19:55)
[2017-06-26 16:59] LABS: COD UR NEGATIVE NG/ML (CUTOFF=50); HYDROCOD UR NEGATIVE NG/ML (CUTOFF=50); HYDROMOR UR 91 NG/ML (CUTOFF=50); MORPHINE UR 1770 NG/ML (CUTOFF=50); NORHYDROCODONE CONF UR NEGATIVE NG/ML (CUTOFF=50); OXYMORPH UR NEGATIVE NG/ML (CUTOFF=50)
[2017-06-26] MEDS: LURASIDONE HCL 40 MG TAB PO SCH (17:32)
--- NOTE | 2017-06-26 18:56 | Psychiatric Progress Notes ---
Progress Note Date of Service Jun 26, 2017. Interval History Kerline Odom is a 61-year-old female who currently lives alone in [place] with assistance from an "senior underwriting assistant", Brandon. Kerline Odom was admitted on a 201 voluntary commitment after a few days of confusion and disorientation. Patient is admitted after discharge from [facility] following a fall and hospitalization at [facility]. The patient was brought to the ED by her senior underwriting assistant, Brandon. Information provided by the patient is considered to be moderately reliable as she was confused for several days prior to admission. Chief Complaint "Feel tired". Subjective Patient was seen & assessed interval progress reviewed with Nursing. Patient reports that mood is improving gradually. She reports increased fatigue during the day today which she attributes to increased dosage of Cymbalta but otherwise tolerating medications well. She is hopeful that increased Cymbalta will help depression and chronic pain. Tearful during the interview as she discussed grieving her 's earlier this year. Review of Systems Psych: denies symptoms other than stated above Constitutional: denied Cardiovascular: denied GI: denied Neurologic: denied Remainder of 10 body systems also reviewed and denied other than noted above. Sleep Information Total Hours of Sleep: 2.25 Meal Information Percent of Breakfast Consumed: 100 Percent of Lunch Consumed: 50 Percent of Dinner Consumed: 100 Mental Status Exam During interview pt is: alert and oriented, cooperative Appearance: appropriately dressed (Wearing robe and slippers from home.), appropriately groomed Eye contact is: good Motor behavior is: no abnormal motor movements, other (ambulating with cane) Speech: normal in rate, rhythm & volume Affect: depressed, tearful, labile (frequent outbursts of tearfulness) Mood is: depressed Thought process: goal directed, tangential Thought content: preoccupation (with pain), reality based without delusions Suicidal thought are: present, Plan: denied, Intent: denied Homicidal thoughts are: denied Hallucinations: denies auditory, denies visual Cognition: attention grossly intact, language grossly intact Intelligence estimated to be: consistent with level of education Insight: impaired Judgement: impaired Impression Kerline Odom is a 61 y/o female with history of Bipolar disorder, currently depressed, without psychotic features. She also reports recent mental status change with confusion and disorientation for the past 3 days. Pt was referred for treatment by her friend, Brandon, who was concerned about her mental state as she was not "acting herself". Pt reports SI stating she has been having "difficulty sustaining the idea that there is still value in life". She presented having been unsure of medication compliance over the past 3 days. Plan (1) Suicidal ideation 06/24 - Feeling of not wanting to be alive with history of previous suicide attempt. Complicated by reported altered mental status for past 3 days. - 15 minute suicide checks - Attending groups and group therapy regularly - Family meeting if desired by patient - suggested one with friend, Brandon 06/25 - SI reported to be ongoing per patient - continue as above (2) Bipolar disorder 06/24 - Bipolar diagnosis in 2004, predominantly depressed - Questions if taking medications appropriately, or at all over the last 3 days - For time being, will restart on Latuda 20mg PO qHS, Topamax 150mg PO qHS, and Cymbalta 90mg PO qAM for management of depressive symptoms related to her bipolar disorder. Pt also taking Neurontin 1200mg PO TID for management of pain with fibromyalgia. - Will coordinate with outpatient therapist/psychiatric provider, Dr. Karen Hernandez, to assess recommendations should alternative therapy be necessary. 06/25 - Pt request for increase in Cymbalta as it has been beneficial to her in the past. One time dose of Cymbalta 30mg given now, will start Cymbalta 120mg PO qAM to begin tomorrow morning. - Also discussed increasing Latuda to target reported "mood swings", not started at this time, but alternative if increased Cymbalta is not effective - Spoke with pt's outpatient provider of 13 years, Karen Hernandez, Ph.D, [employer]ING , who reports they had discussed the potential for increasing mood stabilization medication as an outpatient and would still recommend this as a consideration. She is happy to be contacted for continuity of care and is available at [facility] Wednesday, Wednesday, and Wednesday at . - Clonidine 0.1mg qHS PRN insomnia written to aid with poor sleep (3) Borderline personality disorder 06/24 - Restart psychiatric medications as dosed prior to admission - Recommend setting clear boundaries and limitations while on the unit. (4) Polypharmacy 06/24 - Pt reports not taking her medications as prescribed, stating she doses all of her pain medication (Neurontin 1200mg, Tramadol 100mg, Metaxalone 800mg, and extra-strength Tylenol 500mg) every 4 hours rather than every 6 hours. She reports it is the "first thing I do when I wake up every morning". - Pt denies taking Percocet or other controlled medications outside of the hospital or rehab setting. She questions why her drug screen is positive for opiates since she "has not taken any of that medication in about a week". Continues to believe it is a "false positive". She does report her 's medications have remained in her home after his as she as "not gotten around to getting rid of them". was prescribed liquid morphine injections; however, she denies having taken any of his medications. - Pt does admit she has not been taking medications correctly, if at all, for the past 3 days and has spoken with her friend, Brandon, about helping her to manage medications. She is planning to get a pill box and states he is willing to help her fill regularly. - Outpatient providers as well as providers from her stay at [facility] for rehab will be contacted to determine the intended length of treatment of prescribed pain medications. - Consider In-Home med management upon discharge if more assistance is needed to dose medications properly. (5) Fibromyalgia 06/24 - See above. Admits to more frequent dosing of pain medication than is prescribed. (6) Wound abscess 06/24 - Wound consult ordered. Will continue to evaluate healing and need for further treatment. (7) HTN (hypertension) (8) Hyponatremia Reviewed with patient decrease in sodium level. Patient admits to drinking 6 large mugs of water per day for the past 3 days since admission. Her sodium levels had been 133 at time of admission which is compatible with previous levels. Reviewed with patient risk of hyponatremia with Cymbalta as well. Also reviewed increased seizure and cardiovascular risk with hyponatremia and also reviewed interaction risk between Cymbalta and Tramadol including serotonin syndrome and seizures. Patient contracts to restrict water today and recheck in the morning but declines to lower Cymbalta or Tramadol despite increased risk but agrees to reassess this after repeat blood work in AM. Discharge / Aftercare Planning Primary Care Physician: Name: Dr Osman Date of Appointment: Jul 08, 2017 Time of Appointment: 10:45am Psychiatrist: Name: Dr Hernandez -[facility] Date of Appointment: Jul 02, 2017 Time of Appointment: 11:45am Therapist: Name: Kerline Mathur [facility] Phone Number: [phone] Date of Appointment: Jun 30, 2017 Time of Appointment: 1:00pm Staff Submarine Warfare Officer: Name: Ramya Santac[facility] Date of Appointment: Jun 29, 2017 Time of Appointment: 11:00am Visit Code E&M Code: 43789 Inventory Assets Strengths: reports compliance with weekly outpatient treatment, strong friendship with senior underwriting assistantBrandon Needs: continued grief from husbands passing not fully addressed, ongoing medical problems requiring hospitalization and rehabilitation. Risk Factors Assessment : Yes /single/: Yes Health problems: Yes Mental Health Diagnoses: Yes Previous attempt: Yes Protective Factors Assessment Judaism beliefs: Yes Responsible for young children: No Employed: No Supportive family: No Data Vital Signs Last 24 Hrs: Date Time Temp Pulse Resp B/P (MAP) Pulse Ox O2 Delivery O2 Flow Rate FiO2 06/26/17 09:30 37.2 75 16 126/85 06/25/17 22:18 77 18 145/89 Meds Administered Last 24 Hrs: Meds Administered (Past 24Hrs) Medications (Trade) Dose Ordered Sig/Yovany Route Start Time Stop Time Status Last Admin Dose Admin Duloxetine HCl (Cymbalta Cap) 30 mg ONE ONCE PO 06/25/17 12:15 06/25/17 12:16 DC 06/25/17 12:42 30 MG Duloxetine HCl (Cymbalta Cap) 120 mg QAM PO 06/26/17 09:00 07/24/17 08:59 06/26/17 08:53 120 MG Clonidine HCl (Catapres Tab) 0.1 mg HS PRN PO 06/25/17 13:00 07/25/17 12:59 06/25/17 22:20 0.1 MG Diltiazem HCl (Cardizem Cd Cap) 120 mg QAM PO 06/26/17 09:00 07/24/17 08:59 06/26/17 08:53 120 MG Polyethylene (Miralax Powder Packet) 17 gm DAILY PO 06/26/17 09:00 07/24/17 08:59 06/26/17 08:55 17 GM Lab Results Last 24 Hrs: Last 24 Hours Test 06/26/17 06:41 Sodium Level 126 mmol/L Potassium Level 3.2 mmol/L Chloride Level 94 mmol/L Carbon Dioxide Level 27 mmol/L Anion Gap 5.0 mmol/L Fasting Glucose 98 mg/dl Triglycerides Level 62 mg/dl Cholesterol Level 161 mg/dl HDL Cholesterol 84 mg/dl LDL Cholesterol, Calculated 65 mg/dl VLDL Cholesterol, Calculated 12 mg/dl Cholesterol/HDL Ratio 1.9 Thyroid Stimulating Hormone (TSH) 0.424 uIu/ml Free Triiodothyronine 2.31 pg/ml Problem Qualifiers (1) Bipolar disorder: Active/Remission status: currently active Current bipolar episode type: depressed Current episode severity: severe Psychotic features: without psychotic features Qualified Codes: F31.4 - Bipolar disorder, current episode depressed, severe, without psychotic features
[2017-06-26] MEDS: TOPIRAMATE 100 MG TAB PO SCH (21:23)
[2017-06-27 07:11] VITALS: BP_SYST 136; BP_SYST 146; BP_DIAS 87; BP_DIAS 88; PULSE 67; TEMP 37
[2017-06-27 07:44] LABS: POTASSIUM 3.5 mmol/L (3.5-5.1)
[2017-06-27] MEDS: DILTIAZEM HCL 120 MG CAPCR PO SCH (09:16)
[2017-06-27] MEDS: CALCIUM 600MG + VIT D 400 IU TAB PO SCH ×2 (09:16→21:14)
[2017-06-27] MEDS: LEVOTHYROXINE 50 MCG TAB PO SCH (09:16)
[2017-06-27] MEDS: FERROUS SULFATE 325 MG TAB PO SCH ×2 (09:17→17:23)
[2017-06-27] MEDS: DULOXETINE HCL 60 MG CAP PO SCH (09:17)
[2017-06-27] MEDS: LOSARTAN POTASSIUM 50 MG TAB PO SCH (09:17)
[2017-06-27] MEDS: CHLORTHALIDONE 25 MG TAB PO SCH (09:18)
[2017-06-27] MEDS: POTASSIUM CHLORIDE 20 MEQ TABCR PO SCH (09:19)
[2017-06-27] MEDS: POLYETHYLENE (MIRALAX) 17 GM PACK PO SCH (09:19)
[2017-06-27] MEDS: GABAPENTIN 300 MG CAP PO SCH ×3 (09:21→21:15)
[2017-06-27] MEDS: MELOXICAM 7.5 MG TAB PO SCH ×2 (09:21→21:14)
[2017-06-27] MEDS: PANTOprazole SOD 40 MG TAB PO SCH ×2 (09:21→21:15)
[2017-06-27] MEDS: METAXALONE 800 MG TAB PO SCH ×4 (09:22→21:15)
[2017-06-27] MEDS: TRAMADOL HCL 50 MG TAB PO PRN ×3 (09:35→22:27)
[2017-06-27] MEDS: ACETAMINOPHEN 325 MG TAB PO PRN ×3 (09:36→23:31)
[2017-06-27] MEDS: DICLOFENAC SOD 1% GEL 100 GM TUBE EXT PRN (11:10)
--- NOTE | 2017-06-27 13:21 | Psychiatric Progress Notes ---
Progress Note Date of Service Jun 27, 2017. Interval History Kerline Odom is a 61-year-old female who currently lives alone in [place] with assistance from an "fundraising assistant", Brandon. Kerline Odom was admitted on a 201 voluntary commitment after a few days of confusion and disorientation. Patient is admitted after discharge from [facility] following a fall and hospitalization at [facility]. The patient was brought to the ED by her fundraising assistant, Brandon. Information provided by the patient is considered to be moderately reliable as she was confused for several days prior to admission. Chief Complaint "I am feeling better". Subjective Patient was seen & assessed interval progress reviewed with Nursing. Patient reports that she has been feeling better. Interacting well with other patients and attending groups. Denies any thoughts to harm self or others. She cut back on water supply to two 18 ounce mugs per day. Denies any episodes of binging, purging or anorexia currently but does admit to a restrictive eating pattern in the past. Continues to struggle with ongoing pain. Patient has requested her fundraising assistant, Brandon to bring in stash of 's medications which are at home in to the hospital to be disposed of to help address concern of patient' s altered mental status at time of admission being related to self medication. Review of Systems Psych: denies symptoms other than stated above Constitutional: denied Cardiovascular: denied GI: denied Neurologic: denied Remainder of 10 body systems also reviewed and denied other than noted above. Sleep Information Total Hours of Sleep: 2.00 Meal Information Percent of Breakfast Consumed: 100 Percent of Lunch Consumed: 50 Percent of Dinner Consumed: 100 Mental Status Exam During interview pt is: alert and oriented, cooperative Appearance: appropriately dressed (Wearing robe and slippers from home.), appropriately groomed Eye contact is: good Motor behavior is: no abnormal motor movements, other (ambulating with cane) Speech: normal in rate, rhythm & volume Affect: depressed, tearful, labile (frequent outbursts of tearfulness) Mood is: depressed Thought process: goal directed, tangential Thought content: preoccupation (with pain), reality based without delusions Suicidal thought are: present, Plan: denied, Intent: denied Homicidal thoughts are: denied Hallucinations: denies auditory, denies visual Cognition: attention grossly intact, language grossly intact Intelligence estimated to be: consistent with level of education Insight: impaired Judgement: impaired Impression Kerline Odom is a 61 y/o female with history of Bipolar disorder, currently depressed, without psychotic features. She also reports recent mental status change with confusion and disorientation for the past 3 days. Pt was referred for treatment by her friend, Brandon, who was concerned about her mental state as she was not "acting herself". Pt reports SI stating she has been having "difficulty sustaining the idea that there is still value in life". She presented having been unsure of medication compliance over the past 3 days. Plan (1) Suicidal ideation 06/24 - Feeling of not wanting to be alive with history of previous suicide attempt. Complicated by reported altered mental status for past 3 days. - 15 minute suicide checks - Attending groups and group therapy regularly - Family meeting if desired by patient - suggested one with friend, Brandon 06/25 - SI reported to be ongoing per patient - continue as above (2) Bipolar disorder 06/24 - Bipolar diagnosis in 2004, predominantly depressed - Questions if taking medications appropriately, or at all over the last 3 days - For time being, will restart on Latuda 20mg PO qHS, Topamax 150mg PO qHS, and Cymbalta 90mg PO qAM for management of depressive symptoms related to her bipolar disorder. Pt also taking Neurontin 1200mg PO TID for management of pain with fibromyalgia. - Will coordinate with outpatient therapist/psychiatric provider, Dr. Karen Hernandez, to assess recommendations should alternative therapy be necessary. 06/25 - Pt request for increase in Cymbalta as it has been beneficial to her in the past. One time dose of Cymbalta 30mg given now, will start Cymbalta 120mg PO qAM to begin tomorrow morning. - Also discussed increasing Latuda to target reported "mood swings", not started at this time, but alternative if increased Cymbalta is not effective - Spoke with pt's outpatient provider of 13 years, Karen Hernandez, Ph.D, DEPOSITING MACHINE OPERATOR , who reports they had discussed the potential for increasing mood stabilization medication as an outpatient and would still recommend this as a consideration. She is happy to be contacted for continuity of care and is available at the [facility] Wednesday, Wednesday, and Wednesday at . - Clonidine 0.1mg qHS PRN insomnia written to aid with poor sleep (3) Borderline personality disorder 06/24 - Restart psychiatric medications as dosed prior to admission - Recommend setting clear boundaries and limitations while on the unit. (4) Polypharmacy 06/24 - Pt reports not taking her medications as prescribed, stating she doses all of her pain medication (Neurontin 1200mg, Tramadol 100mg, Metaxalone 800mg, and extra-strength Tylenol 500mg) every 4 hours rather than every 6 hours. She reports it is the "first thing I do when I wake up every morning". - Pt denies taking Percocet or other controlled medications outside of the hospital or rehab setting. She questions why her drug screen is positive for opiates since she "has not taken any of that medication in about a week". Continues to believe it is a "false positive". She does report her 's medications have remained in her home after his as she as "not gotten around to getting rid of them". was prescribed liquid morphine injections; however, she denies having taken any of his medications. - Pt does admit she has not been taking medications correctly, if at all, for the past 3 days and has spoken with her friend, Brandon, about helping her to manage medications. She is planning to get a pill box and states he is willing to help her fill regularly. - Outpatient providers as well as providers from her stay at [facility] for rehab will be contacted to determine the intended length of treatment of prescribed pain medications. - Consider In-Home med management upon discharge if more assistance is needed to dose medications properly. 06/27 -Patient has requested her fundraising assistant, Brandon to bring in stash of 's medications which are at home in to the hospital to be disposed of to help address concern of patient's altered mental status at time of admission being related to self medication. (5) Fibromyalgia 06/24 - See above. Admits to more frequent dosing of pain medication than is prescribed. (6) Wound abscess 06/24 - Wound consult ordered. Will continue to evaluate healing and need for further treatment. (7) HTN (hypertension) (8) Hyponatremia Reviewed with patient decrease in sodium level. Patient admits to drinking 6 large mugs of water per day for the past 3 days since admission. Her sodium levels had been 133 at time of admission which is compatible with previous levels. Reviewed with patient risk of hyponatremia with Cymbalta as well. Also reviewed increased seizure and cardiovascular risk with hyponatremia and also reviewed interaction risk between Cymbalta and Tramadol including serotonin syndrome and seizures. Patient contracts to restrict water today and recheck in the morning but declines to lower Cymbalta or Tramadol despite increased risk but agrees to reassess this after repeat blood work in AM. 06/27 -Hyponatremia improving with sodium level at 132 and will recheck electrolytes tomorrow. Discharge / Aftercare Planning Primary Care Physician: Name: Dr Osman Date of Appointment: Jul 08, 2017 Time of Appointment: 10:45am Psychiatrist: Name: Dr Hernandez -[facility] Date of Appointment: Jul 02, 2017 Time of Appointment: 11:45am Therapist: Name: Kerline Mathur [facility] Phone Number: [phone] Date of Appointment: Jun 30, 2017 Time of Appointment: 1:00pm Building Services Supervisor: [facility] Date of Appointment: Jun 29, 2017 Time of Appointment: 11:00am Visit Code E&M Code: 29098 Inventory Assets Strengths: reports compliance with weekly outpatient treatment, strong friendship with fundraising assistantBrandon Needs: continued grief from husbands passing not fully addressed, ongoing medical problems requiring hospitalization and rehabilitation. Risk Factors Assessment : Yes /single/: Yes Health problems: Yes Mental Health Diagnoses: Yes Previous attempt: Yes Protective Factors Assessment Latter Day beliefs: Yes Responsible for young children: No Employed: No Supportive family: No Data Vital Signs Last 24 Hrs: Date Time Temp Pulse Resp B/P (MAP) Pulse Ox O2 Delivery O2 Flow Rate FiO2 06/27/17 07:11 37.0 67 16 146/88 67 136/87 Meds Administered Last 24 Hrs: Meds Administered (Past 24Hrs) Medications (Trade) Dose Ordered Sig/Yovany Route Start Time Stop Time Status Last Admin Dose Admin Duloxetine HCl (Cymbalta Cap) 120 mg QAM PO 06/26/17 09:00 07/24/17 08:59 06/27/17 09:17 120 MG Diltiazem HCl (Cardizem Cd Cap) 120 mg QAM PO 06/26/17 09:00 07/24/17 08:59 06/27/17 09:16 120 MG Polyethylene (Miralax Powder Packet) 17 gm DAILY PO 06/26/17 09:00 07/24/17 08:59 06/27/17 09:19 17 GM Lab Results Last 24 Hrs: Last 24 Hours Test 06/27/17 07:06 Sodium Level 132 mmol/L Potassium Level 3.5 mmol/L Chloride Level 97 mmol/L Carbon Dioxide Level 28 mmol/L Anion Gap 7.0 mmol/L Problem Qualifiers (1) Bipolar disorder: Active/Remission status: currently active Current bipolar episode type: depressed Current episode severity: severe Psychotic features: without psychotic features Qualified Codes: F31.4 - Bipolar disorder, current episode depressed, severe, without psychotic features
[2017-06-27] MEDS: LURASIDONE HCL 40 MG TAB PO SCH (17:23)
[2017-06-27] MEDS: TOPIRAMATE 100 MG TAB PO SCH (21:15)
[2017-06-27] MEDS: hydrOXYzine HCL 25 MG TAB PO PRN (23:31)
[2017-06-28] MEDS: DICLOFENAC SOD 1% GEL 100 GM TUBE EXT PRN ×3 (03:57→23:19)
[2017-06-28] MEDS: TRAMADOL HCL 50 MG TAB PO PRN ×3 (06:12→23:16)
[2017-06-28] MEDS: ACETAMINOPHEN 325 MG TAB PO PRN ×4 (06:13→21:31)
[2017-06-28 06:59] VITALS: BP_SYST 116; BP_SYST 119; BP_DIAS 72; BP_DIAS 77; PULSE 66; PULSE 67; TEMP 36.8
[2017-06-28 07:11] LABS: POTASSIUM 3.9 mmol/L (3.5-5.1)
[2017-06-28] MEDS: LEVOTHYROXINE 50 MCG TAB PO SCH (08:07)
[2017-06-28] MEDS: CALCIUM 600MG + VIT D 400 IU TAB PO SCH ×2 (08:08→21:26)
[2017-06-28] MEDS: DILTIAZEM HCL 120 MG CAPCR PO SCH (08:09)
[2017-06-28] MEDS: LOSARTAN POTASSIUM 50 MG TAB PO SCH (08:10)
[2017-06-28] MEDS: DULOXETINE HCL 60 MG CAP PO SCH (08:11)
[2017-06-28] MEDS: FERROUS SULFATE 325 MG TAB PO SCH ×2 (08:11→17:34)
[2017-06-28] MEDS: CHLORTHALIDONE 25 MG TAB PO SCH (08:12)
[2017-06-28] MEDS: POLYETHYLENE (MIRALAX) 17 GM PACK PO SCH (08:12)
[2017-06-28] MEDS: POTASSIUM CHLORIDE 20 MEQ TABCR PO SCH (08:12)
[2017-06-28] MEDS: MELOXICAM 7.5 MG TAB PO SCH ×2 (08:13→21:26)
[2017-06-28] MEDS: PANTOprazole SOD 40 MG TAB PO SCH ×2 (08:14→21:26)
[2017-06-28] MEDS: GABAPENTIN 300 MG CAP PO SCH ×3 (08:14→21:26)
[2017-06-28] MEDS: METAXALONE 800 MG TAB PO SCH ×2 (08:15→12:00)
--- NOTE | 2017-06-28 12:48 | Psychiatric Progress Notes ---
Progress Note Date of Service Jun 28, 2017. Interval History Kerline Odom is a 61-year-old female who currently lives alone in [place] with assistance from an "circulation assistant", Brandon. Kerline Odom was admitted on a 201 voluntary commitment after a few days of confusion and disorientation. Patient is admitted after discharge from [facility] following a fall and hospitalization at [facility]. The patient was brought to the ED by her circulation assistant, Brandon. Information provided by the patient is considered to be moderately reliable as she was confused for several days prior to admission. Chief Complaint "Not absolutely light hearted, but not breaking into tears every day". Subjective Patient was seen & assessed interval progress reviewed with Treatment Team. Staff report her wound bandage was changed and was foul smelling. The patient made a comment to staff that the wound was all she had left of her . She had a good visit with her friend Brandon, and participated in groups. She requests Tramadol several times a day. Today, the patient states her mood has improved, although is still not "great." She has been less tearful. Sleep is improved, but still disturbed, c/o chronic pain. She continues to endorse SI, and has been processing it in group. "I've had suicidal thoughts off and on since I was 11 years old, but I forgot about it, and just became reawoken." She says she has always thought of suicide "as a back door, but now I feel like I'm not supposed to use that backdoor, but it's like I'm addicted to that back door. " She says "whenever things get hard, I just think I could kill myself." She feels it will be hard to give this up as an option. She is working on her safety plan, but still doesn't feel safe outside the hospital. She says she "forgets" her safety plan when she is suicidal. She says Brandon, whom she has a meeting with today, is "my employee and my friend." She was informed of her UDS results and that the final results again showed morphine, the same as when she was hospitalized last month. She says she is "mystified" by this, although she states her had liquid morphine and possibly pill for of morphine as well. She says Brandon is bringing them in today. She denies that anyone could be drugging her. She was informed of her sodium level and that it is still low ( 132). Also reviewed recommendations that her meds be kept secured and locked, and put in a weekly pillbox, given her poor compliance as evidenced by large amounts of pills that she had at home. Sleep Information Total Hours of Sleep: 4.00 Meal Information Percent of Breakfast Consumed: 100 Percent of Lunch Consumed: 100 Percent of Dinner Consumed: 100 Mental Status Exam During interview pt is: alert and oriented, cooperative Appearance: appropriately dressed (Wearing a fluffy pink robe, scrub pants, and purple furry slippers; short hair dyed red.), appropriately groomed Eye contact is: good Motor behavior is: no abnormal motor movements, other (ambulating with cane) Speech: normal in rate, rhythm & volume Affect: depressed, other (near tears at times ) Mood is: depressed Thought process: goal directed, tangential Thought content: reality based without delusions Suicidal thought are: present, Plan: denied, Intent: denied Homicidal thoughts are: denied Hallucinations: denies auditory, denies visual Cognition: attention grossly intact, language grossly intact Intelligence estimated to be: consistent with level of education Insight: impaired Judgement: impaired Medication Trials (1) Past Psychotropic Medications Includes but not limited to: Seroquel - caused weight gain risperidone - listed as an allergy for exhaustion oxcarbazepine - listed as allergies for unknown reasons Last Edited By: Charito Samayoa on Jun 28, 2017 12:41 Impression Kerline Odom is a 61 y/o female with history of bipolar disorder, currently depressed, without psychotic features. She also reports recent mental status change with confusion and disorientation for several days prior to admission. She was brought in by her friend Brandon who noted she was confused, and she endorsed SI. She continues to report SI here, and denies any knowledge of how morphine was in her UDS on her last two admissions (she is not prescribed it). She continues to state she does not feel safe leaving the hospital. Plan (1) Suicidal ideation 06/24 - Feeling of not wanting to be alive with history of previous suicide attempt. Complicated by reported altered mental status for past 3 days. - 15 minute suicide checks - Attending groups and group therapy regularly - Family meeting if desired by patient - suggested one with friend, Brandon 06/25 - SI reported to be ongoing per patient - continue as above 06/28 - Patient would benefit from DBT techniques regarding her chronic SI, safety planning, and increasing her OP supports. - We have recommended all medications be brought in from her home so that old , outdated medications and/or medications that are not hers can be safely disposed of. (2) Bipolar disorder 06/24 - Bipolar diagnosis in 2004, predominantly depressed - Questions if taking medications appropriately, or at all over the last 3 days - For time being, will restart on Latuda 20mg PO qHS, Topamax 150mg PO qHS, and Cymbalta 90mg PO qAM for management of depressive symptoms related to her bipolar disorder. Pt also taking Neurontin 1200mg PO TID for management of pain with fibromyalgia. - Will coordinate with outpatient therapist/psychiatric provider, Dr. Karen Hernandez, to assess recommendations should alternative therapy be necessary. 06/25 - Pt request for increase in Cymbalta as it has been beneficial to her in the past. One time dose of Cymbalta 30mg given now, will start Cymbalta 120mg PO qAM to begin tomorrow morning. - Also discussed increasing Latuda to target reported "mood swings", not started at this time, but alternative if increased Cymbalta is not effective - Spoke with pt's outpatient provider of 13 years, Karen Hernandez, Ph.D, WATER RESOURCES PROJECT MANAGER , who reports they had discussed the potential for increasing mood stabilization medication as an outpatient and would still recommend this as a consideration. She is happy to be contacted for continuity of care and is available at the Psych [facility] Wednesday, Wednesday, and Wednesday at . - Clonidine 0.1mg qHS PRN insomnia written to aid with poor sleep 06/28 - Continue duloxetine, which has been increased 220 mg daily, lorazepam 20 mg daily, and clonidine 0.1 mg daily at bedtime when necessary. - Family meeting with friend and circulation assistant, Brandon, today. He is to bring in her 's supply of medications. (3) Borderline personality disorder 06/24 - Restart psychiatric medications as dosed prior to admission - Recommend setting clear boundaries and limitations while on the unit. (4) Polypharmacy 06/24 - Pt reports not taking her medications as prescribed, stating she doses all of her pain medication (Neurontin 1200mg, Tramadol 100mg, Metaxalone 800mg, and extra-strength Tylenol 500mg) every 4 hours rather than every 6 hours. She reports it is the "first thing I do when I wake up every morning". - Pt denies taking Percocet or other controlled medications outside of the hospital or rehab setting. She questions why her drug screen is positive for opiates since she "has not taken any of that medication in about a week". Continues to believe it is a "false positive". She does report her 's medications have remained in her home after his as she as "not gotten around to getting rid of them". was prescribed liquid morphine injections; however, she denies having taken any of his medications. - Pt does admit she has not been taking medications correctly, if at all, for the past 3 days and has spoken with her friend, Brandon, about helping her to manage medications. She is planning to get a pill box and states he is willing to help her fill regularly. - Outpatient providers as well as providers from her stay at [facility] for rehab will be contacted to determine the intended length of treatment of prescribed pain medications. - Consider In-Home med management upon discharge if more assistance is needed to dose medications properly. 06/28 - Patient has requested her circulation assistant, Brandon to bring in stash of 's medications which are at home in to the hospital to be disposed of to help address concern of patient's altered mental status at time of admission being related to self medication. - Would recommend that all of the patient's prescribed medications be kept locked and secured at home, and that her circulation assistant fill a weekly pillbox, so that she will not have access to large amounts of pills. - The patient continues to state that she does not know how her drug screen has been positive for morphine, both on her admission to the medical service last month after she was unconscious on the floor of her house for an unclear amount of time and developed rhabdomyolysis and kidney failure as a result, and again on this admission. She initially denied having access to any opiate pain medications at home, but later stated that her had been on morphine before he , and that she still had a bag of his pills at home. Coordinate care with her PCP, Dr. Osman, who is been prescribing tramadol due to concerns for her substance use. It had been recommended earlier during this stay that her tramadol be decreased, but she became very upset when this was discussed, so it was continued at her outpatient dose. (5) Fibromyalgia 06/24 - See above. Admits to more frequent dosing of pain medication than is prescribed. 06/28 - continue home dose of gabapentin, increased dose of duloxetine, and home dose of tramadol prn. Reviewed her external medication history, and Skelaxin was prescribed once on 06/20/2017 for a [address] Benson, but was not a chronic medication, and she is well past the date where it would have been stopped, so will discontinue it. I am very concerned about her polypharmacy and multiple episodes of altered mental status with medical sequelae with multiple drug screens positive for morphine, and will coordinate care with her outpatient PCP regarding this. (6) Wound abscess 06/24 - Wound consult ordered. Will continue to evaluate healing and need for further treatment. 06/28 - patient reported to staff that the wound was the only thing she had left of her , raising the concern for subconscious or conscious manipulation of the wound, as it has been infected and nonhealing for 6 months now. Continue to work on identifying healthy coping skills and gently educating the patient about ways to get her needs met that will not result in harm to herself. (7) HTN (hypertension) Continue home medications, including diltiazem and losartan. (8) Hyponatremia Reviewed with patient decrease in sodium level. Patient admits to drinking 6 large mugs of water per day for the past 3 days since admission. Her sodium levels had been 133 at time of admission which is compatible with previous levels. Reviewed with patient risk of hyponatremia with Cymbalta as well. Also reviewed increased seizure and cardiovascular risk with hyponatremia and also reviewed interaction risk between Cymbalta and Tramadol including serotonin syndrome and seizures. Patient contracts to restrict water today and recheck in the morning but declines to lower Cymbalta or Tramadol despite increased risk but agrees to reassess this after repeat blood work in AM. 06/27 -Hyponatremia improving with sodium level at 132 and will recheck electrolytes tomorrow. 06/28 - Sodium low but stable at 132. Discharge / Aftercare Planning Primary Care Physician: Name: Dr Osman Date of Appointment: Jul 08, 2017 Time of Appointment: 10:45am Psychiatrist: Name: Dr Hernandez -[facility] Date of Appointment: Jul 02, 2017 Time of Appointment: 11:45am Therapist: Name: Kerline Mathur [facility] Phone Number: [phone] Date of Appointment: Jun 30, 2017 Time of Appointment: 1:00pm Transportation Dispatcher: [facility] Date of Appointment: Jun 29, 2017 Time of Appointment: 11:00am Visit Code E&M Code: 65829 Inventory Assets Strengths: reports compliance with weekly outpatient treatment, strong friendship with circulation assistantBrandon Needs: continued grief from husbands passing not fully addressed, ongoing medical problems requiring hospitalization and rehabilitation. Risk Factors Assessment : Yes /single/: Yes Health problems: Yes Mental Health Diagnoses: Yes Previous attempt: Yes Previous psychiatric stay: Yes Hopelessness: Yes Protective Factors Assessment Buddhist beliefs: Yes : No Responsible for young children: No Employed: No Stable relationships: No Supportive family: No Good rapport with provider: Yes Data Vital Signs Last 24 Hrs: Date Time Temp Pulse Resp B/P (MAP) Pulse Ox O2 Delivery O2 Flow Rate FiO2 06/28/17 06:59 36.8 66 16 116/72 67 119/77 Lab Results Last 24 Hrs: Last 24 Hours Test 06/28/17 06:30 Sodium Level 132 mmol/L Potassium Level 3.9 mmol/L Chloride Level 98 mmol/L Carbon Dioxide Level 27 mmol/L Anion Gap 7.0 mmol/L Problem Qualifiers (1) Bipolar disorder: Active/Remission status: currently active Current bipolar episode type: depressed Current episode severity: severe Psychotic features: without psychotic features Qualified Codes: F31.4 - Bipolar disorder, current episode depressed, severe, without psychotic features
[2017-06-28] MEDS: LURASIDONE HCL 40 MG TAB PO SCH (17:34)
[2017-06-28] MEDS: TOPIRAMATE 100 MG TAB PO SCH (21:26)
[2017-06-29] MEDS: hydrOXYzine HCL 25 MG TAB PO PRN (01:11)
[2017-06-29 07:00] VITALS: BP_SYST 130; BP_SYST 132; BP_DIAS 79; BP_DIAS 83; PULSE 69; PULSE 71; TEMP 37
[2017-06-29] MEDS: LEVOTHYROXINE 50 MCG TAB PO SCH (08:27)
[2017-06-29] MEDS: DILTIAZEM HCL 120 MG CAPCR PO SCH (08:40)
[2017-06-29] MEDS: CALCIUM 600MG + VIT D 400 IU TAB PO SCH ×2 (08:40→21:27)
[2017-06-29] MEDS: FERROUS SULFATE 325 MG TAB PO SCH ×2 (08:41→17:44)
[2017-06-29] MEDS: DULOXETINE HCL 60 MG CAP PO SCH (08:41)
[2017-06-29] MEDS: LOSARTAN POTASSIUM 50 MG TAB PO SCH (08:41)
[2017-06-29] MEDS: CHLORTHALIDONE 25 MG TAB PO SCH (08:41)
[2017-06-29] MEDS: POLYETHYLENE (MIRALAX) 17 GM PACK PO SCH (08:42)
[2017-06-29] MEDS: GABAPENTIN 300 MG CAP PO SCH ×3 (08:42→21:25)
[2017-06-29] MEDS: PANTOprazole SOD 40 MG TAB PO SCH ×2 (08:42→21:26)
[2017-06-29] MEDS: MELOXICAM 7.5 MG TAB PO SCH ×2 (08:42→21:26)
[2017-06-29] MEDS: POTASSIUM CHLORIDE 20 MEQ TABCR PO SCH (08:42)
[2017-06-29] MEDS: TRAMADOL HCL 50 MG TAB PO PRN ×2 (08:51→16:56)
[2017-06-29] MEDS: ACETAMINOPHEN 325 MG TAB PO PRN ×3 (09:30→21:24)
[2017-06-29] MEDS: DICLOFENAC SOD 1% GEL 100 GM TUBE EXT PRN (09:56)
--- NOTE | 2017-06-29 11:27 | Psychiatric Progress Notes ---
Progress Note Date of Service Jun 29, 2017. Interval History Kerline Odom is a 61-year-old female who currently lives alone in [place] with assistance from an "assistant restaurant general manager", Brandon. Kerline Odom was admitted on a 201 voluntary commitment after a few days of confusion and disorientation. Patient is admitted after discharge from [facility] following a fall and hospitalization at [facility]. The patient was brought to the ED by her assistant restaurant general manager, Brandon. Information provided by the patient is considered to be moderately reliable as she was confused for several days prior to admission. Chief Complaint "So-so, maybe a little bit better than so-so". Subjective Patient was seen & assessed interval progress reviewed with Nursing. Staff report she remains focused on pain medications, but is going to groups and participating. She had a meeting with her friend Brandon, and he agreed to monitor her medications, set up a weekly pillbox, and keep the med bottles locked. He brought in a large amount of medications that her had, which are cataloged in the nursing notes. The patient states her mood is slightly improved, pain is better controlled, and she feels she is a bit better than yesterday. She remains very anxious about returning home, not wanting to be alone, and says she "wants to make sure things are in place," like PT and OT. She had a referral for home health nursing, PT and OT when she left the [facility], and met once with a nurse at her house prior to being re-admitted. She continues to report foul drainage from her wound, and the wound nurse expressed concerns that she is manipulating the wound. She reports "generalized" suicidal thoughts, "I need to be better able to allow myself to look for and accept help sooner, rather than later, when I feel myself becoming very very depressed." After multiple restatements of the questions about SI, she denies SI since yesterday. She is able to review who her supports are and whom she could contact if she felt unsafe, including her medical case worker, [facility], Dr. Hernandez, and says there are crisis counselors at the [facility]. Her main concerns/ barriers are "feeling physically unwell because of the pain and the depression, " and that she won't follow through on these things because she won't feel well. She recognizes her pattern of skipping appointments when she doesn't feel well, and that this is probably when she most needs to go. Review of Systems Constitutional: + problem reported (see above) Respiratory: + problem reported (denies URI symptoms) Musculoskeletal: + problem reported ( pain in hips, knees, back, etc "just my normal fibromyalgia pain") Psychiatric: + problem reported (see above) Sleep Information Total Hours of Sleep: 4.00 Meal Information Percent of Breakfast Consumed: 75 Percent of Lunch Consumed: 50 Percent of Dinner Consumed: 100 Mental Status Exam During interview pt is: alert and oriented, cooperative Appearance: appropriately dressed (Dressed in brightly colored clothing: fluffy pink robe, scrub pants, yellow shirt, and purple furry slippers; short hair dyed red.), appropriately groomed Eye contact is: good Motor behavior is: steady gait & station (with cane), no abnormal motor movements Speech: normal in rate, rhythm & volume Affect: euthymic (bright, reactive, mildly anxious) Mood is: other ("a little bit better than so-so") Thought process: goal directed, circumstantial Thought content: reality based without delusions Suicidal thought are: denied Homicidal thoughts are: denied Hallucinations: denies auditory, denies visual Cognition: attention grossly intact, language grossly intact Intelligence estimated to be: consistent with level of education Insight: impaired Judgement: impaired Medication Trials (1) Past Psychotropic Medications Includes but not limited to: Seroquel - caused weight gain risperidone - listed as an allergy for exhaustion (started during 2004 [facility] admission) oxcarbazepine - listed as allergies for unknown reasons Elavil - overdosed on it in 2004 in a suicide attempt and was admitted to the ICU and then involuntarily committed to the [facility] - overdosed on it in 2004 clonazepam per records, history of many antidepressants and anxiolytics from Dr. Osman and Dr. Bowman Last Edited By: Charito Samayoa on Jun 29, 2017 11:43 Impression Kerline Odom is a 61 y/o female with history of mixed personality disorder, bipolar disorder, currently depressed, without psychotic features. She also reports recent mental status change with confusion and disorientation for several days prior to admission. She was brought in by her friend Brandon who noted she was confused, and she endorsed SI. She continues to report SI here, and denies any knowledge of how morphine was in her UDS on her last two admissions (she is not prescribed it). SI is lessening and we are working on discharge plans. Plan (1) Suicidal ideation 06/24 - Feeling of not wanting to be alive with history of previous suicide attempt. Complicated by reported altered mental status for past 3 days. - 15 minute suicide checks - Attending groups and group therapy regularly - Family meeting if desired by patient - suggested one with friend, Brandon 06/25 - SI reported to be ongoing per patient - continue as above 06/28 - Patient would benefit from DBT techniques regarding her chronic SI, safety planning, and increasing her OP supports. - We have recommended all medications be brought in from her home so that old , outdated medications and/or medications that are not hers can be safely disposed of. 06/29 - Order written for pharmacy to dispose of large stash of 's medications (listed in nursing notes). At the time of discharge, will have to go through the patient's medications and dispose of those that are no longer prescribed. (2) Bipolar disorder 06/24 - Bipolar diagnosis in 2004, predominantly depressed - Questions if taking medications appropriately, or at all over the last 3 days - For time being, will restart on Latuda 20mg PO qHS, Topamax 150mg PO qHS, and Cymbalta 90mg PO qAM for management of depressive symptoms related to her bipolar disorder. Pt also taking Neurontin 1200mg PO TID for management of pain with fibromyalgia. - Will coordinate with outpatient therapist/psychiatric provider, Dr. Karen Hernandez, to assess recommendations should alternative therapy be necessary. 06/25 - Pt request for increase in Cymbalta as it has been beneficial to her in the past. One time dose of Cymbalta 30mg given now, will start Cymbalta 120mg PO qAM to begin tomorrow morning. - Also discussed increasing Latuda to target reported "mood swings", not started at this time, but alternative if increased Cymbalta is not effective - Spoke with pt's outpatient provider of 13 years, Karen Hernandez, Ph.D, HOBBING MACHINE OPERATOR , who reports they had discussed the potential for increasing mood stabilization medication as an outpatient and would still recommend this as a consideration. She is happy to be contacted for continuity of care and is available at [facility] Wednesday, Wednesday, and Wednesday at . - Clonidine 0.1mg qHS PRN insomnia written to aid with poor sleep 06/28 - Continue duloxetine, which has been increased to 120 mg daily, lorazepam 20 mg daily, and clonidine 0.1 mg daily at bedtime when necessary. - Family meeting with friend and assistant restaurant general manager, Brandon, today. He is to bring in her 's supply of medications. (3) Borderline personality disorder 06/24 - Restart psychiatric medications as dosed prior to admission - Recommend setting clear boundaries and limitations while on the unit. (4) Polypharmacy 06/24 - Pt reports not taking her medications as prescribed, stating she doses all of her pain medication (Neurontin 1200mg, Tramadol 100mg, Metaxalone 800mg, and extra-strength Tylenol 500mg) every 4 hours rather than every 6 hours. She reports it is the "first thing I do when I wake up every morning". - Pt denies taking Percocet or other controlled medications outside of the hospital or rehab setting. She questions why her drug screen is positive for opiates since she "has not taken any of that medication in about a week". Continues to believe it is a "false positive". She does report her 's medications have remained in her home after his as she as "not gotten around to getting rid of them". was prescribed liquid morphine injections; however, she denies having taken any of his medications. - Pt does admit she has not been taking medications correctly, if at all, for the past 3 days and has spoken with her friend, Brandon, about helping her to manage medications. She is planning to get a pill box and states he is willing to help her fill regularly. - Outpatient providers as well as providers from her stay at [facility] for rehab will be contacted to determine the intended length of treatment of prescribed pain medications. - Consider In-Home med management upon discharge if more assistance is needed to dose medications properly. 06/28 - Patient has requested her assistant restaurant general manager, Brandon to bring in stash of 's medications which are at home in to the hospital to be disposed of to help address concern of patient's altered mental status at time of admission being related to self medication. - Would recommend that all of the patient's prescribed medications be kept locked and secured at home, and that her assistant restaurant general manager fill a weekly pillbox, so that she will not have access to large amounts of pills. - The patient continues to state that she does not know how her drug screen has been positive for morphine, both on her admission to the medical service last month after she was unconscious on the floor of her house for an unclear amount of time and developed rhabdomyolysis and kidney failure as a result, and again on this admission. She initially denied having access to any opiate pain medications at home, but later stated that her had been on morphine before he , and that she still had a bag of his pills at home. Coordinate care with her PCP, Dr. Osman, who is been prescribing tramadol due to concerns for her substance use. It had been recommended earlier during this stay that her tramadol be decreased, but she became very upset when this was discussed, so it was continued at her outpatient dose. 06/29 - Brandon agreed to manage medications at home, by filling a weekly pillbox and keeping the pill bottles locked. Would recommend avoiding controlled substances and medications that can be abused or cause altered mental status given the patient's history of long-standing problems with this. - Order written to destroy the large stash of medications she had from her , and we will need to review her large stash of medications at the time of discharge and destroy old outdated medications that she is no longer prescribed. (5) Fibromyalgia 06/24 - See above. Admits to more frequent dosing of pain medication than is prescribed. 06/28 - continue home dose of gabapentin, increased dose of duloxetine, and home dose of tramadol prn. Reviewed her external medication history, and Skelaxin was prescribed once on 06/20/2017 for a [address] Benson, but was not a chronic medication, and she is well past the date where it would have been stopped, so will discontinue it. I am very concerned about her polypharmacy and multiple episodes of altered mental status with medical sequelae with multiple drug screens positive for morphine, and will coordinate care with her outpatient PCP regarding this. 06/29 - spoke with Dr. Osman regarding the patient's controlled substance use and concerns about polypharmacy and poor adherence to medication regimen, leading to multiple episodes of altered mental status and her recent hospitalization for fall/episode of unconsciousness/rhabdomyolysis. He reviewed records and noted that she was tapered off of morphine in early 2015, and since then has been prescribed tramadol for pain. Today I reviewed her old hospital records dating back to 2004, and noted that she has had numerous admissions for altered mental status thought to be due to polypharmacy, particularly pain medications, muscle relaxants, and benzodiazepines. Her memory has frequently been impaired when she is admitted to the hospital, and seems to improve while she is here and these medications are limited and being administered to her appropriately, raising a concern for nonadherence to the medication regimen at home leading to altered mental status. This history should be taken into consideration when prescribing medications for her chronic pain syndrome and mental health issues in the future. (6) Wound abscess 06/24 - Wound consult ordered. Will continue to evaluate healing and need for further treatment. 06/28 - patient reported to staff that the wound was the only thing she had left of her , raising the concern for subconscious or conscious manipulation of the wound, as it has been infected and nonhealing for 6 months now. Continue to work on identifying healthy coping skills and gently educating the patient about ways to get her needs met that will not result in harm to herself. (7) HTN (hypertension) Continue home medications, including diltiazem and losartan. (8) Hyponatremia Reviewed with patient decrease in sodium level. Patient admits to drinking 6 large mugs of water per day for the past 3 days since admission. Her sodium levels had been 133 at time of admission which is compatible with previous levels. Reviewed with patient risk of hyponatremia with Cymbalta as well. Also reviewed increased seizure and cardiovascular risk with hyponatremia and also reviewed interaction risk between Cymbalta and Tramadol including serotonin syndrome and seizures. Patient contracts to restrict water today and recheck in the morning but declines to lower Cymbalta or Tramadol despite increased risk but agrees to reassess this after repeat blood work in AM. 06/27 -Hyponatremia improving with sodium level at 132 and will recheck electrolytes tomorrow. 06/28 - Sodium low but stable at 132. Discharge / Aftercare Planning Primary Care Physician: Name: Dr Osman Date of Appointment: Jul 08, 2017 Time of Appointment: 10:45am Psychiatrist: Name: Dr Hernandez -[facility] Date of Appointment: Jul 02, 2017 Time of Appointment: 11:45am Therapist: Name: Kerline Mathur [facility] Date of Appointment: Jul 07, 2017 Time of Appointment: 1:00pm Detonator Assembler: Name: Ramya SantacruzSHERRI Date of Appointment: Jul 06, 2017 Time of Appointment: 11:00am Home Health Services: Home Health Services: nursing, physical therapy, occupational therapy Home Health Agency: [facility] Appointment Notes: They will follow up with you at home after discharge Visit Code E&M Code: 28347 Inventory Assets Strengths: reports compliance with weekly outpatient treatment, strong friendship with assistant restaurant general managerBrandon Needs: continued grief from husbands passing not fully addressed, ongoing medical problems requiring hospitalization and rehabilitation. Risk Factors Assessment : Yes /single/: Yes Health problems: Yes Mental Health Diagnoses: Yes Previous attempt: Yes Previous psychiatric stay: Yes Hopelessness: Yes Protective Factors Assessment Evangelical beliefs: Yes : No Responsible for young children: No Employed: No Stable relationships: No Supportive family: No Good rapport with provider: Yes Data Vital Signs Last 24 Hrs: Date Time Temp Pulse Resp B/P (MAP) Pulse Ox O2 Delivery O2 Flow Rate FiO2 06/29/17 07:00 37.0 71 16 130/79 69 132/83 Problem Qualifiers (1) Bipolar disorder: Active/Remission status: currently active Current bipolar episode type: depressed Current episode severity: severe Psychotic features: without psychotic features Qualified Codes: F31.4 - Bipolar disorder, current episode depressed, severe, without psychotic features
[2017-06-29] MEDS ORDERED: DESTROY THIS MEDICATION ONE (11:36)
[2017-06-29] MEDS: LURASIDONE HCL 40 MG TAB PO SCH (17:43)
[2017-06-29] MEDS: TOPIRAMATE 100 MG TAB PO SCH (21:28)
[2017-06-30 06:50] VITALS: BP_SYST 136; BP_SYST 151; BP_DIAS 89; BP_DIAS 91; PULSE 71; PULSE 73; TEMP 36.9
[2017-06-30] MEDS: ACETAMINOPHEN 325 MG TAB PO PRN ×2 (07:04→12:38)
[2017-06-30] MEDS: LEVOTHYROXINE 50 MCG TAB PO SCH (07:51)
[2017-06-30] MEDS: CALCIUM 600MG + VIT D 400 IU TAB PO SCH (07:52)
[2017-06-30] MEDS: FERROUS SULFATE 325 MG TAB PO SCH (07:53)
[2017-06-30] MEDS: LOSARTAN POTASSIUM 50 MG TAB PO SCH (07:53)
[2017-06-30] MEDS: DILTIAZEM HCL 120 MG CAPCR PO SCH (07:53)
[2017-06-30] MEDS: DULOXETINE HCL 60 MG CAP PO SCH (07:53)
[2017-06-30] MEDS: GABAPENTIN 300 MG CAP PO SCH (07:54)
[2017-06-30] MEDS: CHLORTHALIDONE 25 MG TAB PO SCH (07:54)
[2017-06-30] MEDS: POLYETHYLENE (MIRALAX) 17 GM PACK PO SCH (07:54)
[2017-06-30] MEDS: POTASSIUM CHLORIDE 20 MEQ TABCR PO SCH (07:54)
[2017-06-30] MEDS: PANTOprazole SOD 40 MG TAB PO SCH (07:54)
[2017-06-30] MEDS: MELOXICAM 7.5 MG TAB PO SCH (07:54)
[2017-06-30] MEDS: TRAMADOL HCL 50 MG TAB PO PRN (07:56)
[2017-06-30] MEDS ORDERED: DULO60CA44 PO (10:09)
--- NOTE | 2017-06-30 10:43 | Discharge Instructions ---
Discharge Information Report Includes Report will include the: Discharge Instructions & Summary Admission Admission Date / Time: Jun 23, 2017 at 17:04 Reason for Admission: Depression Discharge Discharge Diagnosis / Problem: bipolar disorder, borderline personality disorder Condition at Discharge: Fair Discharge Goals Goal(s): Improve function, Improve disease control, Learn about illness, Therapeutic intervention, Specific goals (dispose of old, outdated medications) Activity Recommendations Activity Limitations: per Instructions/Follow-up section . Instructions / Follow-Up Instructions / Follow-Up . SPECIAL CARE INSTRUCTIONS: 1. Follow through with your scheduled aftercare appointments. If unable to keep an appointment, please call to reschedule. We recommend increased outpatient supports, such as Psych Rehab or Clubhouse. 2. Take your medication only as prescribed. Medication should not be changed or stopped without the approval of your doctor. In the event of worsening symptoms or concerns about side effects, contact your doctor immediately. Your old, , and/or discontinued medications and your 's old medications were safely disposed of by the pharmacy for safety reasons. We recommend that you have assistance with your medications at home, due to repeated admissions for altered mental status due to medication misuse. We recommended that all pill bottles be kept locked and secured, and a pillbox be filled weekly, to help decrease accidental overdoses and clarify adherence to your prescribed regimen. You declined the recommendation to keep pill bottles locked. We also recommended a referral to [facility], which you declined. 3. Utilize new healthy coping skills, anger management skills, and stress management skills learned during your hospitalization. Journal feelings and process them with a support person. Identify stressors or situations that may result in relapse, deterioration or inappropriate behaviors and develop a plan to deal with those issues. 4. If your coping skills are ineffective and you are in crisis, contact your outpatient providers for direction. If unable to reach your providers, please call the CAN HELP LINE AT or go to the closest Emergency Room. 5. Avoid alcohol and un-prescribed drugs. 6. You have been provided with the Mental Health Advance Directives Pamphlet for your review. AFTERCARE APPOINTMENTS: * Please call your insurance company prior to your scheduled appointment to confirm your aftercare providers are covered. Take your insurance information to your appointments. . Discharge / Aftercare Planning Primary Care Physician: Name: Dr Osman Date of Appointment: Jul 08, 2017 Time of Appointment: 10:45am Psychiatrist: Name: Dr Hernandez [facility] Date of Appointment: Jul 02, 2017 Time of Appointment: 11:45am Therapist: Name Of Therapist: Kerline Mathur [facility] Date of Appointment: Jul 07, 2017 Time of Appointment: 1:00pm Natural Resources Instructor: [facility] Date of Appointment: Jul 06, 2017 Time of Appointment: 11:00am Home Health Services: Home Health Services: nursing, physical therapy, occupational therapy Home Health Agency: [facility] Appointment Comments: They will follow up with you at home after discharge Other: Name of Appointment #1: [facility] Date of Appointment #1: Jul 01, 2017 Time of Appointment #1: 9am . Follow-Up Care Plan for Follow-Up Care: See above. Current Hospital Diet Patient's current hospital diet: Regular Diet Discharge Diet Recommended Diet: Regular Diet Procedures Procedures Performed: No Pending Studies Pending Studies at Discharge: No Medical Emergencies . Who to Call and When: Medical Emergencies: For questions or emergencies related to your hospital stay, please contact the Inpatient Behavioral Health Unit at [phone]. A patient case coordinator is on-call 08/02 for the Behavioral Health Unit for emergencies At any time you feel your situation is an emergency, you may also call 911 immediately. . Non-Emergent Contact Non-Emergency issues call your: Primary Care Provider, Psychiatrist, Therapist , Natural Resources Instructor Past History Medical & Surgical History: (1) Polypharmacy (2) Wound abscess (3) Hypokalemia (4) Hyponatremia (5) HTN (hypertension) (6) Fibromyalgia Advance Directives Existing Advance Directive: No Do You Have an Existing Mental: No Existing Living Will: No Existing Power of Box Folding Machine Operator: No Advance Directives Info Given: To Pt/S.O. Advance Directives Reason: Declines as Mental Health Visit. Discharge Summary Admission HPI Per the Admitting provider: Kerline Odom is a 61-year-old female admitted to [address] [place] [address] for recent altered mental status and confusion observed at home. She was recently hospitalized in May after sustaining a fall and having rhabdomyolysis. She was transferred for inpatient rehabilitation prior to returning home. Pt was discharged from [facility] inpatient rehabilitation on 06/21 and returned to her home. She reports 3 days of disorientation and confusion where she reports she "didn't know what day it was or how long I had been there - I had lost track of time". She also states that her thought process and language were impaired at this time saying, "I couldn't speak words correctly and it felt like a traffic jam in my head". Her friend and personal care assistant, Brandon, stated he was concerned about the recent changes and called her outpatient therapist, Dr. Karen Hernandez, to report this concern. Pt willingly reported to the ED with help of Brandon to be evaluated. Pt reports has a history of bipolar disorder, predominantly depressed and has been struggling with the of her in December, whom she had cared for during his 8 year bejarano with Alzheimer's. Pt states since that time she has "still seen the value in life, but I'm difficulty sustaining that thought recently". She reports some recent SI and feelings of hopelessness stating she was even preparing to find homes for her two kittens. At that point, she was able to realize "something was wrong". Pt has a long history of fibromyalgia along with suffering the grief of the loss of her . A more recent stressor is her reportedly not feeling like she was "treated right in the first place for my legs". Pt has ongoing left lower leg pain from the fall she sustained and a wound on her right lower leg that has not healed properly since an incident with her demented prior to his . Pt is currently prescribed Latuda 20mg qHS, Topamax 150mg qHS, Cymbalta 90mg qAM , Lorazepam 1mg PRN, and Neurontin 1200mg TID among other pain medications. Pt reports that prior to her fall in May, she was doing well on her medications and felt she was well controlled. She states she has been seeing her outpatient therapist and psychiatric provider weekly along with meeting weekly for a group therapy session with Kerline Mathur at [facility]. Pt states she has weekly meetings with Ramya Santacruz at [facility] as well. According to the patient, "I feel really good and do very well when I'm able to meet with all of my providers regularly, but I've been in the hospital and haven 't been able to see people". Pt states she feels there are still things she could be working on and is looking forward to having some time on the unit to address her feelings. Pt is has been prescribed a number of controlled substances and reports she manages her own medications. She admits to taking her pain medications more frequently than prescribed (every 4 hours rather than every 6) but denies abuse of her medications. She denies use of any opiate pain medications since her rehab stay, and continues to deny that any could still be in her system even questioning if "I should continue to be drug screened while I'm here to see who is doing this to me". Pt reports she still has her 's medications as she has "not gotten around to disposing of them". He was prescribed liquid Morphine injections, but she denies using any of his medications. Previous medications for bipolar disorder include Seroquel which caused weight gain, and risperidone and oxcarbazepine which are now listed as allergies for unknown reasons. Pt denies HI, A/V hallucinations, paranoia, teodoro, OCD, PTSD, and other psychosis. Admission Exam Per the Admitting provider: Please see admission H&P. Consultations Wound care consult nurse. Hospital Course (1) Suicidal ideation 06/24 - Feeling of not wanting to be alive with history of previous suicide attempt. Complicated by reported altered mental status for past 3 days. - 15 minute suicide checks - Attending groups and group therapy regularly - Family meeting if desired by patient - suggested one with friend, Brandon 06/25 - SI reported to be ongoing per patient - continue as above 06/28 - Patient would benefit from DBT techniques regarding her chronic SI, safety planning, and increasing her OP supports. - We have recommended all medications be brought in from her home so that old , outdated medications and/or medications that are not hers can be safely disposed of. 06/29 - Order written for pharmacy to dispose of large stash of 's medications (listed in nursing notes). At the time of discharge, will have to go through the patient's medications and dispose of those that are no longer prescribed. 06/30 - Reviewed all of patient's medications during discharge process, only medication change was to increase duloxetine and discontinue Skelaxin. No new prescriptions issued as patient has ample home supply. Old, outdated, or discontinued medications were disposed of by the pharmacy. - Discharge to home. Reviewed recommendations to increase outpatient supports , including mobile med management which she refused, psych rehab, mobile psych rehab, or clubhouse, and f/u with her psychiatrist and therapist, Dr. Cleo Hernandez, and egg caser Ramya Linda. - Reviewed recommendations for medication safety at home, including that someone else (her assistant professor of life sciences) keep all pill bottles locked up and fill her weekly pillbox for increased oversight and safety. She is refusing this, saying she can manage her own meds, but will allow her assistant professor of life sciences to help her oversee the meds. Due to her repeated episodes of misuse/overuse of medications and history of overdose and SI, would recommend her outpatient providers consider prescribing only 1-2 weeks' worth of meds at a time, to decrease her risk of intentional or accidental overdose. (2) Bipolar disorder 06/24 - Bipolar diagnosis in 2004, predominantly depressed - Questions if taking medications appropriately, or at all over the last 3 days - For time being, will restart on Latuda 20mg PO qHS, Topamax 150mg PO qHS, and Cymbalta 90mg PO qAM for management of depressive symptoms related to her bipolar disorder. Pt also taking Neurontin 1200mg PO TID for management of pain with fibromyalgia. - Will coordinate with outpatient therapist/psychiatric provider, Dr. Karen Hernandez, to assess recommendations should alternative therapy be necessary. 06/25 - Pt request for increase in Cymbalta as it has been beneficial to her in the past. One time dose of Cymbalta 30mg given now, will start Cymbalta 120mg PO qAM to begin tomorrow morning. - Also discussed increasing Latuda to target reported "mood swings", not started at this time, but alternative if increased Cymbalta is not effective - Spoke with pt's outpatient provider of 13 years, Karen Hernandez, Ph.D, [employer] , who reports they had discussed the potential for increasing mood stabilization medication as an outpatient and would still recommend this as a consideration. She is happy to be contacted for continuity of care and is available at [facility] Wednesday, Wednesday, and Wednesday at . - Clonidine 0.1mg qHS PRN insomnia written to aid with poor sleep 06/28 - Continue duloxetine, which has been increased to 120 mg daily, lurasidone 20 mg daily, and clonidine 0.1 mg daily at bedtime when necessary. - Family meeting with friend and assistant professor of life sciences, Brandon, today. He is to bring in her 's supply of medications. 06/30 - Continue duloxetine which was increased to 120mg (may use home supply) and lurasidone 20mg daily. Only tried clonidine once, will not continue it. - F/u with OP providers. (3) Borderline personality disorder 06/24 - Restart psychiatric medications as dosed prior to admission - Recommend setting clear boundaries and limitations while on the unit. (4) Polypharmacy 06/24 - Pt reports not taking her medications as prescribed, stating she doses all of her pain medication (Neurontin 1200mg, Tramadol 100mg, Metaxalone 800mg, and extra-strength Tylenol 500mg) every 4 hours rather than every 6 hours. She reports it is the "first thing I do when I wake up every morning". - Pt denies taking Percocet or other controlled medications outside of the hospital or rehab setting. She questions why her drug screen is positive for opiates since she "has not taken any of that medication in about a week". Continues to believe it is a "false positive". She does report her 's medications have remained in her home after his as she as "not gotten around to getting rid of them". was prescribed liquid morphine injections; however, she denies having taken any of his medications. - Pt does admit she has not been taking medications correctly, if at all, for the past 3 days and has spoken with her friend, Brandon, about helping her to manage medications. She is planning to get a pill box and states he is willing to help her fill regularly. - Outpatient providers as well as providers from her stay at [facility] for rehab will be contacted to determine the intended length of treatment of prescribed pain medications. - Consider In-Home med management upon discharge if more assistance is needed to dose medications properly. 06/28 - Patient has requested her assistant professor of life sciences, Brandon to bring in stash of 's medications which are at home in to the hospital to be disposed of to help address concern of patient's altered mental status at time of admission being related to self medication. - Would recommend that all of the patient's prescribed medications be kept locked and secured at home, and that her assistant professor of life sciences fill a weekly pillbox, so that she will not have access to large amounts of pills. - The patient continues to state that she does not know how her drug screen has been positive for morphine, both on her admission to the medical service last month after she was unconscious on the floor of her house for an unclear amount of time and developed rhabdomyolysis and kidney failure as a result, and again on this admission. She initially denied having access to any opiate pain medications at home, but later stated that her had been on morphine before he , and that she still had a bag of his pills at home. Coordinate care with her PCP, Dr. Osman, who is been prescribing tramadol due to concerns for her substance use. It had been recommended earlier during this stay that her tramadol be decreased, but she became very upset when this was discussed, so it was continued at her outpatient dose. 06/29 - Brandon agreed to manage medications at home, by filling a weekly pillbox, but patient would not agree to allow him to keep the pill bottles locked. Would recommend avoiding controlled substances and medications that can be abused or cause altered mental status given the patient's history of long-standing problems with this, and that she only be prescribed small amounts of medications to limit her access. - Order written to destroy the large stash of medications she had from her , and we will need to review her large stash of medications at the time of discharge and destroy old outdated medications that she is no longer prescribed. 06/30 - Again reviewed re: medications at home. (5) Fibromyalgia 06/24 - See above. Admits to more frequent dosing of pain medication than is prescribed. 06/28 - continue home dose of gabapentin, increased dose of duloxetine, and home dose of tramadol prn. Reviewed her external medication history, and Skelaxin was prescribed once on 06/20/2017 for a [address] Benson, but was not a chronic medication, and she is well past the date where it would have been stopped, so will discontinue it. I am very concerned about her polypharmacy and multiple episodes of altered mental status with medical sequelae with multiple drug screens positive for morphine, and will coordinate care with her outpatient PCP regarding this. 06/29 - spoke with Dr. Osman regarding the patient's controlled substance use and concerns about polypharmacy and poor adherence to medication regimen, leading to multiple episodes of altered mental status and her recent hospitalization for fall/episode of unconsciousness/rhabdomyolysis. He reviewed records and noted that she was tapered off of morphine in early 2015, and since then has been prescribed tramadol for pain. Today I reviewed her old hospital records dating back to 2004, and noted that she has had numerous admissions for altered mental status thought to be due to polypharmacy, particularly pain medications, muscle relaxants, and benzodiazepines. Her memory has frequently been impaired when she is admitted to the hospital, and seems to improve while she is here and these medications are limited and being administered to her appropriately, raising a concern for nonadherence to the medication regimen at home leading to altered mental status. This history should be taken into consideration when prescribing medications for her chronic pain syndrome and mental health issues in the future. 06/30 - Home supply of tramadol returned to patient. She has admitted to over- using it, and is refusing recommendations that her meds be more closely monitored at home, and refused [facility]. Recommend she only be prescribed 1-2 weeks' worth of medications due to the high risk of abuse and overdose. (6) Wound abscess 06/24 - Wound consult ordered. Will continue to evaluate healing and need for further treatment. 06/28 - patient reported to staff that the wound was the only thing she had left of her , raising the concern for subconscious or conscious manipulation of the wound, as it has been infected and nonhealing for 6 months now. Continue to work on identifying healthy coping skills and gently educating the patient about ways to get her needs met that will not result in harm to herself. 06/30 - f/u with wound care clinic. (7) HTN (hypertension) Continue home medications, including diltiazem and losartan. (8) Hyponatremia Reviewed with patient decrease in sodium level. Patient admits to drinking 6 large mugs of water per day for the past 3 days since admission. Her sodium levels had been 133 at time of admission which is compatible with previous levels. Reviewed with patient risk of hyponatremia with Cymbalta as well. Also reviewed increased seizure and cardiovascular risk with hyponatremia and also reviewed interaction risk between Cymbalta and Tramadol including serotonin syndrome and seizures. Patient contracts to restrict water today and recheck in the morning but declines to lower Cymbalta or Tramadol despite increased risk but agrees to reassess this after repeat blood work in AM. 06/27 -Hyponatremia improving with sodium level at 132 and will recheck electrolytes tomorrow. 06/28 - Sodium low but stable at 132. Risk Factors Assessment : Yes /single/: Yes Higher / Fall in social status: No Access to guns: No Health problems: Yes Mental Health Diagnoses: Yes Substance use disorders: Yes Previous attempt: Yes Previous psychiatric stay: Yes Hopelessness: Yes Smoker: No Protective Factors Assessment Samaritan beliefs: Yes : No Responsible for young children: No Employed: No Stable relationships: Yes (with friend, Brandon) Supportive family: No Good rapport with provider: Yes Absence of risk factors above: Yes (risk factors were mitigated by admission to the inpatient unit, adjusting medications to target mood and anxiety and try to minimize polypharmacy, working on a safety plan with respect to her home medications, disposing of her large medications stash at home, involving her in groups and therapy and working on healthy coping skills and the discharge safety plan, a family meeting with her friend Brandon, recommending increased level of outpatient support such as psych rehabilitation and clubhouse, coordinating care with her multiple outpatient providers specifically around concerns about access to controlled medications and abuse of medications, treating her comorbid medical conditions, and arranging aftercare with multiple specialists. She has demonstrated improvement with respect to mood, anxiety, and suicidal thoughts, is able to review her safety plan and is willing to follow-up with outpatient providers. She is no longer at acute risk of harm to herself, so can be managed as an outpatient at this time. She is at chronic increased risk for harm to self given her access to large amounts of medications and unwillingness to allow more oversight of her prescription drugs , as well as her history of repeatedly overusing these medications, but this risk factor cannot be further mitigated by inpatient treatment. ) Day of Discharge Assessment Hospital Course: On admission, significant time was spent clarifying the patient 's correct medications and doses, as she reported several days of altered mental status and confusion thought to be due to misuse of her medications. Her medication history was reviewed and she had filled numerous controlled substance prescriptions from many different providers over the past year (68 controlled substance prescriptions from 12 different providers). Many of these were short prescriptions for opiates and other pain medications. Her duloxetine was increased to target depression, anxiety, and pain, and she tolerated it well. Her other home medications were continued unchanged. Skelaxin was discontinued as she had only received a five-day prescription from Dr. Benson while at rehab, in an attempt to minimize polypharmacy and streamline her regimen, avoiding medications that could contribute to altered mental status or could be abused. Her assistant professor of life sciences Brandon was contacted and brought in her medications from home, which amounted to 4 large containers of pill bottles dating back several years. Some of these were from her . and discontinued medications were disposed of by the pharmacy prior to discharge. We explored the issue of her medication misuse, and she was not necessarily forthcoming with information. It was reviewed with her that her drug screens on her admission in May after she was found down at home and this admission were both positive for morphine, which she is not prescribed, and she initially insisted that she did not have any opiates at home , but later stated that her had had prescriptions for morphine prior to his , although she denied taking any. Although she reported difficulty managing her medications at home, she refused recommendations for a referral to [facility] or to allow her assistant professor of life sciences to keep her medications locked, although she did agree to allow him to help her fill a weekly pillbox. She attended groups and participated, and processed her stressors, primarily grief over the loss of her and her chronic medical condition. A wound consult was obtained due to her chronic infected lower extremity wound, and there was suspicion that she was manipulating the wound, as she made comments to staff that it was all she had left of her . Her sodium was followed as it was low, and she was advised to limit her water intake she was drinking copious amounts. She had a meeting with her friend Brandon, who assists her at home. Care was coordinated with her outpatient providers and with respect to previous referrals made when she left the [facility] for home health nursing, PT and OT. Day of Discharge Assessment: The patient reports improved mood, and denies suicidal ideation. She showered today for the first time in over a week, and states she feels much better. She is able to review her safety plan, and admits that she has many supports, "but I just don't use them." She remains somewhat oppositional about the recommendations around her medications, stating that no one suggested that Brandon keep the medications locked, and that "there is no need for that." We reviewed in detail the recommendations for safe use of her prescription medications, why this is being recommended given her history of many episodes of altered mental status due to overuse of medications , and her chronic suicidality with thoughts of overdosing. We also reviewed recommendations for mobile med management, psych rehabilitation, and clubhouse, and she is willing to consider these. She was advised that she will need to discuss these referrals with her egg caser. She notes that she is feeling much better, but is worried about how she will do over the holidays, as it is her first [place] without her and she misses him. She wants to know who will be prescribing marijuana, states that she heard it will be available in July, and she is very much looking forward to finding a physician who will prescribe it for her. She requests a prescription for hydroxyzine, but advised her that I don't feel comfortable prescribing it as she is on many sedating medications and has had such difficulty with polypharmacy and misuse of medications. Well nourished, well developed WF appearing stated age. Casually dressed and adequately groomed, just showered, hair is clean, and is wearing jeans and a clean button-down shirt. Calm and cooperative. Seated in NAD, with fair eye contact and no abnormal movements. Speech is normal rate, volume, and tone. Mood is "a lot better," and affect is stable and congruent, briefly tearful when discussing missing . Thoughts are goal directed for the most part, but sometimes circumferential. The patient denied suicidal and homicidal ideation and was able to review her safety plan. No paranoia, delusions, or hallucinations, and did not appear to be responding to internal stimuli. Cognition was grossly intact. Alert and oriented to person, place and time. Intelligence is consistent with level of education. Insight and and judgment are limited. Laboratory Test 06/23/17 00:00 06/23/17 13:25 06/23/17 13:51 06/26/17 06:41 Free Triiodothyronine 2.28 2.31 Urine Color YELLOW Urine Appearance CLEAR Urine pH 7.0 Urine Specific [place] 1.014 Urine Protein NEG Urine Glucose (UA) NEG Urine Ketones 3+ Urine Occult Blood NEG Urine Nitrite NEG Urine Bilirubin NEG Urine Urobilinogen NEG Urine Leukocyte Esterase NEG Urine Opiates Screen POS Urine Codeine Confirmation (GC/MS) NEGATIVE Urine Morphine Confirm (GC/MS) 1770 Urine Hydrocodone Confirm (GC/MS) NEGATIVE Urine Norhydrocodone NEGATIVE Urine Noroxycodone NEGATIVE Urine Oxycodone Confirm (GC/MS) NEGATIVE Urine Oxymorphone Confirm (GC/MS) NEGATIVE Urine Methadone, Qualitative NEG Urine Hydromorphone Confirm (GC/MS) 91 Urine Barbiturates NEG Urine Phencyclidine (PCP) Level NEG Ur Amphetamine/Methamphetamine NEG MDMA (Ecstasy) Screen NEG Urine Benzodiazepines Screen NEG Urine Cocaine Metabolite NEG Urine Marijuana (THC) NEG White Blood Count 6.50 Red Blood Count 3.64 Hemoglobin 11.7 Hematocrit 33.6 Mean Corpuscular Volume 92.3 Mean Corpuscular Hemoglobin 32.1 Mean Corpuscular Hemoglobin Concent 34.8 Platelet Count 160 Mean Platelet Volume 8.9 Neutrophils (%) (Auto) 76.8 Lymphocytes (%) (Auto) 15.2 Monocytes (%) (Auto) 6.6 Eosinophils (%) (Auto) 0.6 Basophils (%) (Auto) 0.5 Neutrophils # (Auto) 4.99 Lymphocytes # (Auto) 0.99 Monocytes # (Auto) 0.43 Eosinophils # (Auto) 0.04 Basophils # (Auto) 0.03 RDW Standard Deviation 40.5 RDW Coefficient of Variation 11.9 Immature Granulocyte % (Auto) 0.3 Immature Granulocyte # (Auto) 0.02 Blood Urea Nitrogen 16 Creatinine 0.85 Est Creatinine Clear Calc Drug Dose 64.2 Estimated GFR () 85.1 Estimated GFR (Non- 73.4 BUN/Creatinine Ratio 19.3 Random Glucose 88 Calcium Level 9.7 Total Bilirubin 0.7 Direct Bilirubin 0.2 Aspartate Amino Transferase (AST) 65 Alanine Aminotransferase (ALT) 31 Alkaline Phosphatase 62 Total Protein 6.5 Albumin 3.4 Globulin 3.1 Albumin/Globulin Ratio 1.1 Thyroid Stimulating Hormone (TSH) 0.228 0.424 Free Thyroxine 1.19 Ethyl Alcohol mg/dL < 3.0 Fasting Glucose 98 Triglycerides Level 62 Cholesterol Level 161 HDL Cholesterol 84 LDL Cholesterol, Calculated 65 VLDL Cholesterol, Calculated 12 Cholesterol/HDL Ratio 1.9 Test 06/27/17 07:06 06/28/17 06:30 Sodium Level 132 132 Potassium Level 3.5 3.9 Chloride Level 97 98 Carbon Dioxide Level 28 27 Anion Gap 7.0 7.0 Total Time Total Time Spent (min): Greater than 30 minutes Total Time Included: examination of the patient, discharge planning, medication reconciliation, communication with other providers Tobacco Cessation at Discharge Smoking Status: Former Smoker FDA approved Prescription: non-smoker Problem Qualifiers (1) Bipolar disorder: Active/Remission status: currently active Current bipolar episode type: depressed Current episode severity: severe Psychotic features: without psychotic features Qualified Codes: F31.4 - Bipolar disorder, current episode depressed, severe, without psychotic features
[2017-06-30] MEDS ORDERED: DESTROY THIS MEDICATION ONE (11:00)
== END 2017-06-30 14:09 | disposition home or self-care (01) | DRG 885 ==
LOC: EDBD 12:20 → C.EDA 12:21 → C.MHU 17:04
PROVIDERS: ADMIT Psychiatry & Neurology Psychiatry; ATTEND Psychiatry & Neurology Psychiatry
DX: F31.4 Bipolar disorder, current episode depressed, severe, without psychotic features (principal); R45.851 Suicidal ideations; E87.1 Hypo-osmolality and hyponatremia; Z91.5 Personal history of self-harm; F60.3 Borderline personality disorder; Z91.14 Patient's other noncompliance with medication regimen; Z63.4 Disappearance and death of family member; M79.7 Fibromyalgia; I10 Essential (primary) hypertension; T14.8XXD Other injury of unspecified body region, subsequent encounter; X58.XXXD Exposure to other specified factors, subsequent encounter; Z62.811 Personal history of psychological abuse in childhood; Z87.891 Personal history of nicotine dependence; Z79.1 Long term (current) use of non-steroidal anti-inflammatories (NSAID); Z79.52 Long term (current) use of systemic steroids; Z79.899 Other long term (current) drug therapy; Z88.8 Allergy status to other drugs, medicaments and biological substances; Z81.1 Family history of alcohol abuse and dependence; Z81.8 Family history of other mental and behavioral disorders; Z82.49 Family history of ischemic heart disease and other diseases of the circulatory system; Z83.6 Family history of other diseases of the respiratory system

== ENCOUNTER 2017-09-30 13:06 | Emergency (ER) | payer OTHER ==
[~2017-09-30] VITALS: Ht 177.8 cm; Wt 84.0 kg
[~2017-09-30 13:06] MED LIST changes: -ACYC1OIN4 EXT; -COLON HEALTH PO; -CYM/30 PO; -META1TAB22 PO; +NUTRCAP11 PO; +POLY335019 PO
[2017-09-30 13:22] VITALS: TEMP 36.8; Ht 177.8 cm; Wt 84.0 kg
[2017-09-30 15:00] LABS: BASO % 0.8 %; BASO ABS # 0.05 K/uL (0-0.2); EOS % 1.7 %; HEMATOCRIT 43.2 % (37-47); IG# 0.01 K/uL (0.00-0.02); LYMPH % 38.7 %; LYMPH ABS # 2.32 K/uL (1.2-3.4); MEAN CELL VOLUME 86.7 fL (80-100); MEAN CORPUSCULAR HEMOGLOBIN 32.1 pg (25-34); MEAN PLATELET VOLUME 8.7 fL (7.4-10.4); NEUT % 48.6 %; NEUT ABS # 2.91 K/uL (1.4-6.5); PLATELET COUNT 199 K/uL (130-400); RED CELL DISTRIBUTION WIDTH CV 13.3 % (11.5-14.5); RED CELL DISTRIBUTION WIDTH SD 42.2 fL (36.4-46.3); WHITE BLOOD COUNT 5.99 K/uL (4.8-10.8)
[2017-09-30 15:22] LABS: CREATININE 1.11 mg/dl (0.60-1.20)
[2017-09-30 15:23] LABS: ALBUMIN 3.8 gm/dl (3.4-5.0); CALCIUM 10.4 mg/dl (8.5-10.1); POTASSIUM 2.8 mmol/L (3.5-5.1)
[2017-09-30 15:33] LABS: TOTAL PROTEIN 7.1 gm/dl (6.4-8.2)
[2017-09-30] MEDS ORDERED: METAXALONE 800 MG TAB PO STA (15:36)
[2017-09-30] MEDS ORDERED: ACETAMINOPHEN 500 MG TAB PO STA (15:36)
[2017-09-30] MEDS ORDERED: TRAMADOL HCL 50 MG TAB PO STA (15:36)
[2017-09-30] MEDS ORDERED: GABAPENTIN 600 MG TAB PO STA (15:36)
[2017-09-30] MEDS ORDERED: POTASSIUM CHLORIDE 10 MEQ TABCR PO STA (15:57)
[2017-09-30] MEDS ORDERED: LORAZEPAM 1 MG TAB SL STA (16:00)
--- NOTE | 2017-09-30 16:53 | EMERGENCY ROOM VISIT NOTE ---
History Report prepared by Kevin: Ameena Julien Under the Supervision of: Dr. Connor Rodriguez M.D. First contact with patient: 13:41 Chief Complaint: MENTAL HEALTH EVALUATION Stated Complaint: Suicidal Ideation with plan History of Present Illness The patient is a 62 year old female who presents to the Emergency Room with complaints of worsening depression starting several weeks ago. The patient's has a history of depression and has been admitted for inpatient psychiatric care in the past. Her last year and the patient has felt lonely. Last week would have been her 's birthday which made her more depressed. She states that she just wants to be with him again. She is having thoughts of hurting herself. She has some plans on how, but would not like to share these plans. She has tried overdosing and cutting in the past. She denies any attempts at hurting herself recently. She denies taking any extra medications. She denies any auditory or visual hallucinations. She has had some abdominal pain. She has had a decreased appetite. She has a history of IBS and acid reflux. She denies any fever, chills, cough, congestion, nausea, vomiting, or burning with urination. Source of History: patient Onset: several weeks ago Position: other (mental health) Quality: other (depression) Timing: worsening Associated Symptoms: + abdominal pain, No fevers, No chills, No cough, No nausea, No vomiting, No urinary symptoms Note: Pt reports suicidal ideation, decreased appetite. Pt denies auditory or visual hallucinations. Review of Systems See HPI for pertinent positives and negatives. A total of ten systems were reviewed and were otherwise negative. Past Medical & Surgical Medical Problems: (1) Bipolar disorder (2) Borderline personality disorder (3) Depression (4) Fibromyalgia (5) HTN (hypertension) (6) Hypokalemia (7) Past Psychotropic Medications (8) Polypharmacy (9) Wound abscess Surgical Problems: (1) H/O inguinal hernia repair (2) History of back surgery (3) Status post total hip replacement, left Family History Cancer FH: heart disease FHx: lung disease Hypertension Social History Smoking Status: Former Smoker Alcohol Use: none Drug Use: none Marital Status: Housing Status: lives alone Occupation Status: retired, disabled Current/Historical Medications Scheduled Calcium Citrate-Vitamin D (Citracal + D3 Maximum), 1 TAB PO BID Chlorthalidone (Hygroton), 25 MG PO QAM Diltiazem Hcl Coated Beads (Cardizem La), 120 MG PO QAM Duloxetine Hcl (Cymbalta), 120 MG PO QAM Ferrous Sulfate (Kp Ferrous Sulfate), 325 MG PO BIDM Gabapentin (Neurontin), 1,200 MG PO TID Levothyroxine Sodium (Synthroid), 50 MCG PO QAM Losartan Potassium (Cozaar), 100 MG PO QAM Lurasidone Hcl (Latuda), 20 MG PO HS Meloxicam (Mobic), 7.5 MG PO BID Nutritional Supplements (Colon Formula), 1 CAP PO DAILY Omeprazole (Prilosec), 20 MG PO BID Polyethylene Glycol 3350 (Miralax), 17 GM PO DAILY Potassium Ext Rel (Klor-Con), 20 MEQ PO QAM Prednisone (Prednisone), 5 MG PO QAM Topiramate (Topamax), 150 MG PO HS Triamcinolone Acet (Triamcinolone Acetonide), 1 APPLN TOP BID Scheduled PRN Acetaminophen (Tylenol), 2 TAB PO Q4H PRN for Pain Albuterol Sulfate (Proair Respiclick), 2 PUFFS INH QID PRN for Shortness of Breath Diclofenac Sodium (Topical) (Voltaren 1% Top Gel), 1 DOSE EXT QID PRN for Pain Fluticasone Propionate (Nasal) (Flonase Allergy Relief), 2 SPRAY MEAGAN DAILY PRN for PRN Tramadol (Ultram), 2 TAB PO Q6H PRN for Pain Allergies Coded Allergies: Cyclobenzaprine (Verified Allergy, Intermediate, RASH AND SWELLING, ) Fentanyl (Verified Allergy, Unknown, MAJOR FEET SWELLING, 06/23/17) Oxcarbazepine (Verified Allergy, Unknown, UNKNOWN - PT DOESN'T REMEMBER, 06/23/17) Risperidone (Verified Adverse Reaction, Intermediate, exhaustion, 06/23/17) Clonazepam (Verified Adverse Reaction, Mild, nausea, 06/23/17) Physical Exam Vital Signs Date Time Temp Pulse Resp B/P (MAP) Pulse Ox O2 Delivery O2 Flow Rate FiO2 09/30/17 17:05 72 20 135/76 98 Room Air 09/30/17 16:05 88 20 159/94 98 Room Air 3/15/18 13:22 36.8 84 16 169/106 98 Room Air Physical Exam GENERAL: Awake, alert, depressed and tearful-appearing, in no distress HENT: Normocephalic, atraumatic. Dry mucous membranes. EYES: Normal conjunctiva. Sclera non-icteric. NECK: Supple. No nuchal rigidity. FROM. No JVD. RESPIRATORY: Clear to auscultation. CARDIAC: Regular rate, normal rhythm. Extremities warm and well perfused. Pulses equal. ABDOMEN: Soft, non-distended. No tenderness to palpation. No rebound or guarding. No masses. RECTAL: Deferred. MUSCULOSKELETAL: Chest examination reveals no tenderness. The back is symmetrical on inspection without obvious abnormality. There is no CVA tenderness to palpation. No joint edema. LOWER EXTREMITIES: Calves are equal size bilaterally and non-tender. No edema. No discoloration. NEURO: Normal sensorium. No sensory or motor deficits noted. SKIN: No rash or jaundice noted. Medical Decision & Procedures Laboratory Results 09/30/17 14:44 Red Blood Count 4.98, Mean Corpuscular Volume 86.7, Mean Corpuscular Hemoglobin 32.1, Mean Corpuscular Hemoglobin Concent 37.0, Mean Platelet Volume 8.7, Neutrophils (%) (Auto) 48.6, Lymphocytes (%) (Auto) 38.7, Monocytes (%) (Auto) 10.0, Eosinophils (%) (Auto) 1.7, Basophils (%) (Auto) 0.8, Neutrophils # (Auto ) 2.91, Lymphocytes # (Auto) 2.32, Monocytes # (Auto) 0.60, Eosinophils # (Auto ) 0.10, Basophils # (Auto) 0.05 09/30/17 14:44 Test 09/30/17 13:32 09/30/17 14:21 09/30/17 14:44 Urine Color YELLOW Urine Appearance CLEAR (CLEAR) Urine pH 7.0 (4.5-7.5) Urine Specific [place] 1.017 (1.000-1.030) Urine Protein NEG (NEG) Urine Glucose (UA) NEG (NEG) Urine Ketones TRACE (NEG) Urine Occult Blood NEG (NEG) Urine Nitrite NEG (NEG) Urine Bilirubin NEG (NEG) Urine Urobilinogen NEG (NEG) Urine Leukocyte Esterase NEG (NEG) Urine Test NEG (NEG) Urine Opiates Screen NEG (NEG) Urine Methadone, Qualitative NEG (NEG) Urine Barbiturates NEG (NEG) Urine Phencyclidine (PCP) Level NEG (NEG) Ur Amphetamine/Methamphetamine NEG (NEG) MDMA (Ecstasy) Screen NEG (NEG) Urine Benzodiazepines Screen NEG (NEG) Urine Cocaine Metabolite NEG (NEG) Urine Marijuana (THC) NEG (NEG) Bedside Glucose 103 mg/dl (70-90) White Blood Count 5.99 K/uL (4.8-10.8) Red Blood Count 4.98 M/uL (4.2-5.4) Hemoglobin 16.0 g/dL (12.0-16.0) Hematocrit 43.2 % (37-47) Mean Corpuscular Volume 86.7 fL (80-100) Mean Corpuscular Hemoglobin 32.1 pg (25-34) Mean Corpuscular Hemoglobin Concent 37.0 g/dl (32-36) Platelet Count 199 K/uL (130-400) Mean Platelet Volume 8.7 fL (7.4-10.4) Neutrophils (%) (Auto) 48.6 % Lymphocytes (%) (Auto) 38.7 % Monocytes (%) (Auto) 10.0 % Eosinophils (%) (Auto) 1.7 % Basophils (%) (Auto) 0.8 % Neutrophils # (Auto) 2.91 K/uL (1.4-6.5) Lymphocytes # (Auto) 2.32 K/uL (1.2-3.4) Monocytes # (Auto) 0.60 K/uL (0.11-0.59) Eosinophils # (Auto) 0.10 K/uL (0-0.5) Basophils # (Auto) 0.05 K/uL (0-0.2) RDW Standard Deviation 42.2 fL (36.4-46.3) RDW Coefficient of Variation 13.3 % (11.5-14.5) Immature Granulocyte % (Auto) 0.2 % Immature Granulocyte # (Auto) 0.01 K/uL (0.00-0.02) Anion Gap 10.0 mmol/L (3-11) Est Creatinine Clear Calc Drug Dose 61.2 ml/min Estimated GFR () 61.2 Estimated GFR (Non- 52.8 BUN/Creatinine Ratio 11.2 (10-20) Calcium Level 10.4 mg/dl (8.5-10.1) Total Bilirubin 0.6 mg/dl (0.2-1) Direct Bilirubin 0.1 mg/dl (0-0.2) Aspartate Amino Transf (AST/SGOT) 13 U/L (15-37) Alanine Aminotransferase (ALT/SGPT) 14 U/L (12-78) Alkaline Phosphatase 56 U/L (45-117) Total Protein 7.1 gm/dl (6.4-8.2) Albumin 3.8 gm/dl (3.4-5.0) Globulin 3.3 gm/dl (2.5-4.0) Albumin/Globulin Ratio 1.2 (0.9-2) Thyroid Stimulating Hormone (TSH) 0.539 uIu/ml (0.300-4.500) Ethyl Alcohol mg/dL < 3.0 mg/dl (0-3) Laboratory results reviewed by me Medications Administered Medications (Trade) Dose Ordered Sig/Yovany Route Start Time Stop Time Status Last Admin Dose Admin Tramadol HCl (Ultram Tab) 100 mg NOW STAT PO 09/30/17 15:36 09/30/17 15:43 DC 09/30/17 16:03 100 MG Metaxalone (Skelaxin Tab) 800 mg NOW STAT PO 09/30/17 15:36 09/30/17 15:43 DC 09/30/17 16:04 800 MG Gabapentin (Neurontin Tab) 1,200 mg NOW STAT PO 09/30/17 15:36 09/30/17 15:43 DC 09/30/17 16:04 1,200 MG Acetaminophen (Tylenol Tab) 1,000 mg NOW STAT PO 09/30/17 15:36 09/30/17 15:43 DC 09/30/17 16:03 1,000 MG Potassium Chloride (Klor-Con M10) 40 meq NOW STAT PO 09/30/17 15:57 09/30/17 15:58 DC 09/30/17 16:11 40 MEQ Lorazepam (Ativan Tab) 1 mg NOW STAT SL 09/30/17 16:00 09/30/17 16:07 DC 09/30/17 16:11 1 MG ED Course 1354: The patient was evaluated in room A8. A complete history and physical exam was performed. 1649: The patient has been accepted to [facility]. Medical Decision I reviewed the patient's past medical history, medications, and the nursing notes as described above. Differential diagnosis: Etiologies such as mood disorder, infection, hypoglycemia, electrolyte abnormalities, cardiac sources, intracerebral event, toxicologic, neurologic, as well as others were entertained. The patient is a 62-year-old woman with a past medical history of anxiety, depression, suicidality who presents to the emergency department with worsening depression and suicidal ideation with plan to overdose per hpi. On arrival, the patient is depressed and tearful but in no acute distress, afebrile stable vital signs. Labs show low potassium at 2.8 which was repleted. Otherwise labs unremarkable. Patient was medically cleared. Given that the patient has expressed suicidal ideation with plan in the setting of prior admissions for the same as well as prior attempts is reasonable to admit the patient for inpatient psychiatry. Patient is willing to be admitted voluntarily and so 201 was signed. Patient was accepted to [facility] for inpatient psychiatry. Medication Reconcilliation Current Medication List: was personally reviewed by me Blood Pressure Screening Patient's blood pressure: Elevated blood pressure Blood pressure disposition: Elevated BP felt to be situational Impression Primary Impression: Suicidal ideation Scribe Attestation The scribe's documentation has been prepared under my direction and personally reviewed by me in its entirety. I confirm that the note above accurately reflects all work, treatment, procedures, and medical decision making performed by me. Departure Information Dispostion Mental [facility] Acute Care Referrals Arpit Osman III, M.D. (PCP) Patient Instructions [facility]
[2017-09-30 17:05] VITALS: BP 135/76; PULSE 72; O2SAT 98
== END 2017-09-30 18:59 ==
LOC: EDBD 13:06 → C.EDA 13:07
DX: R45.851 Suicidal ideations (principal); F31.9 Bipolar disorder, unspecified; F32.9 Major depressive disorder, single episode, unspecified; I10 Essential (primary) hypertension; E87.6 Hypokalemia; M79.7 Fibromyalgia; Z82.49 Family history of ischemic heart disease and other diseases of the circulatory system; Z87.891 Personal history of nicotine dependence; Z88.8 Allergy status to other drugs, medicaments and biological substances

== ENCOUNTER 2019-01-15 16:34 | Inpatient (IN) ==
[2019-01-15] MEDS ORDERED: ONDANSETRON INJ 2 MG/ML 2 ML VIAL IV STA (16:56)
[2019-01-15] MEDS ORDERED: SODIUM CHLORIDE 0.9% 1000ML 1,000 ML IV SCH (17:00)
[2019-01-15] MEDS: MoRPHine SULFATE 4 MG/ML 1 ML CARP\\VIAL IV PRN ×3 (17:21→21:09)
--- NOTE | 2019-01-15 17:25 | Emergency Department Note ---
Entered by Rehan Olmstead acting as a scribe for History of Present Illness General Chief complaint: Dehydration Stated complaint: DEHYDRATION, JOINT PAIN Time Seen by Provider: 01/15/19 16:48 Source: patient History of Present Illness Provider complaint: Dehydration Onset (ago): day(s) (Past couple of days) Location: pelvis Radiation: extremity Pain Consistency: + constant Maximum Pain Intensity: 8 Relieved By: + none Exacerbated By: + none Associated symptoms: + fever/chills, + loss of appetite, + nausea/vomiting, + shortness of breath and + other (Positive urinary incontinence; Positive abdominal pain) The patient is a 63 year old female who presents to the Emergency Room with complaints of constant bilateral pelvic pain that flared up a couple of days ago. The patient states that 3 days ago she saw Dr. 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 The patient reports she was trying to schedule an appointment with Dr. Mckenna for pain management but he is out of town so she was sent here for pain management. The patient states that her pelvic pain radiates down her legs and nothing seems to make it better. The patient notes that for the past 3 days she has also been dehydrated, not able to drink or eat much. She states today when she tried to drink water, she vomited it up about 5 minutes later. 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 Her last visit to her GI doctor was 2 days ago, but she stopped taking her Vancomycin 4 days ago. She was previously on a very long course of Vancomycin due to her C. Diff history. Over the weekend the patient reports she has had intermittent fevers and shortness of breath. She also has noticed some urinary incontinence and dysuria, which is new for her. Furthermore, this past week the patient had seen Dr. Morales and was diagnosed with hyperparathyroidism. The patient also has a history of fibromyalgia. Home Medications Home Medications Medication Instructions Recorded Confirmed Type acetaminophen [Tylenol Extra 1,000 mg PO Q4 PRN 08/18/18 01/15/19 History Strength] albuterol sulfate 1 puff INHALATION QID PRN 08/18/18 01/15/19 History diclofenac sodium 1 applic TOPICAL QID 08/18/18 01/15/19 History duloxetine [Cymbalta] 120 mg PO DAILY 08/18/18 01/15/19 History eszopiclone 2 mg PO HS 08/18/18 01/15/19 History ferrous sulfate 325 mg PO BID 08/18/18 01/15/19 History gabapentin 1,200 mg PO TID 08/18/18 01/15/19 History lamotrigine [Lamictal] 150 mg PO BID 08/18/18 01/15/19 History levothyroxine [Levoxyl] 50 mcg PO DAILY 08/18/18 01/15/19 History losartan 100 mg PO DAILY 08/18/18 01/15/19 History metaxalone 800 mg PO QID 08/18/18 01/15/19 History omeprazole 20 mg PO BID 08/18/18 01/15/19 History potassium chloride [Klor-Con M20] 20 meq PO DAILY 08/18/18 01/15/19 History prednisone 5 mg PO DAILY 08/18/18 01/15/19 History topiramate [Topamax] 100 mg PO QPM 08/18/18 01/15/19 History tramadol 100 mg PO Q6 PRN 08/18/18 01/15/19 History chlorthalidone 25 mg PO DAILY 01/15/19 01/15/19 History hyoscyamine sulfate 0.125 mg PO Q4 PRN 01/15/19 01/15/19 History meloxicam 15 mg PO DAILY PRN 01/15/19 01/15/19 History ondansetron HCl [Zofran] 8 mg PO Q8 PRN 01/15/19 01/15/19 History topiramate [Topamax] 50 mg PO QAM 01/15/19 01/15/19 History Allergies Allergy/AdvReac Type Severity Reaction Status Date / Time cyclobenzaprine Allergy Intermediate RASH AND Verified 01/15/19 17:16 SWELLING fentanyl Allergy Intermediate MAJOR FEET Verified 01/15/19 17:16 SWELLING ketorolac [From Toradol] Allergy Unknown SEE COMMENT Verified 01/15/19 17:16 oxcarbazepine Allergy Unknown UNKNOWN - Verified 01/15/19 17:16 PT DOESN'T REMEMBER risperidone AdvReac Intermediate exhaustion Verified 01/15/19 17:16 clonazepam AdvReac Mild nausea Verified 01/15/19 17:16 Past Med/Surg History Medical History Depression (Chronic) HTN (hypertension) (Chronic) Bipolar disorder (Chronic) Fibromyalgia (Chronic) Borderline personality disorder Hypokalemia Hyponatremia (Acute) Polypharmacy Wound abscess (Chronic) Hypothyroid (Chronic) Surgical History H/O inguinal hernia repair (Chronic) Status post total hip replacement, left (Chronic) History of back surgery (Chronic) Family History Other Cancer Heart disease Hypertension Lung disease Social History Preferred Language: Chinese Communication Ability: Effective Beliefs That Will Affect Care: None marital status: / Current Living Situation: Alone current occupational status: retired Feels Safe at Home: Yes Smoking Status: Former smoker Hx Alcohol Use: No Hx Substance Use: No Review of Systems See HPI for pertinent positives & negatives. and A total of 10 systems reviewed and were otherwise negative Physical Exam Vital Signs Vital Signs - 24 hr 01/15/19 16:37 Temperature 36.6 C Temperature Source Oral Sepsis Recent Fever Within 48 Hours No Sepsis Action Taken by Nursing No Action Required Pulse Rate 110 H Respiratory Rate 20 Respiratory Effort / Characteristics Non-Labored Spontaneous Respiratory Depth Normal Blood Pressure 133/81 Blood Pressure Mean 98 Pulse Oximetry 98 Oxygen Delivery Method Room Air GENERAL: Patient is in no acute distress. HEENT: No acute trauma, normocephalic atraumatic, mucous membranes dry, no nasal congestion, no scleral icterus. NECK: No stridor, no adenopathy, no meningismus, trachea is midline. LUNGS: Clear to auscultation bilaterally, no wheeze, no rhonchi, breath sounds equal. HEART: Mildly tachycardic, regular rhythm, no murmurs. ABDOMEN: Soft, mildly diffusely tender, bowel sounds positive, no hernias, no peritonitis. BACK: No rash seen. Small, healing sacral ulcer noted with no surrounding erythema. EXTREMITIES: No cyanosis or edema, full range of motion of all the joints without pain or difficulty, no signs for acute trauma. NEUROLOGIC: Oriented x 3, no acute motor or sensory deficits, no focal weakness. SKIN: No rash, no jaundice, no diaphoresis. Course 1651: The patient was evaluated in room B04B, and a complete history and physical examination were performed. 1822: I reevaluated the patient and updated her on all findings. I also updated her on the treatment plan, which she is in agreement with. 1833: I spoke to Dr. Ten Yap Hospitalist about the patient's case. S he will be accepting the patient for further evaluation. Consultations Consultation #1: I spoke to Dr. Ten Burton about the patient's case. She will be accepting the patient for further evaluation. Time: 18:33 Administered Medications Potassium Chloride (K Jamel / Wtr) 10 meq in 100 mls @ 100 mls/hr IV ONE ONE Stop: 01/15/19 19:08 Last Admin: 01/15/19 18:27 Dose: 100 mls/hr Documented by: [id number] Morphine Sulfate (Morphine Sulfate) 4 mg IV Q30M PRN PRN Reason: Pain Stop: 01/29/19 16:55 Last Admin: 01/15/19 18:27 Dose: 4 mg Documented by: [id number] Admin: 01/15/19 17:21 Dose: 4 mg Documented by: [id number] Discontinued Medications Sodium Chloride (Nss 1000ml) 1,000 mls @ 999 mls/hr IV .Q1H1M IVAN Stop: 01/15/19 18:00 Last Infusion: 01/15/19 18:27 Dose: 0 mls/hr Documented by: [id number] Admin: 01/15/19 17:22 Dose: 999 mls/hr Documented by: [id number] Sodium Chloride (Nss 1000ml) 500 mls @ 999 mls/hr IV .Q31M ONE Stop: 01/15/19 18:39 Last Infusion: 01/15/19 18:53 Dose: 0 mls/hr Documented by: [id number] Admin: 01/15/19 18:27 Dose: 999 mls/hr Documented by: [id number] Ondansetron HCl (Zofran) 4 mg IV NOW STA Stop: 01/15/19 16:57 Last Admin: 01/15/19 17:20 Dose: 4 mg Documented by: [id number] Potassium Chloride (Klor-Con M20) 40 meq PO NOW STA Stop: 01/15/19 18:10 Last Admin: 01/15/19 18:27 Dose: 40 meq Documented by: [id number] Medical Decision Making Differential Diagnosis Differential Diagnosis includes: Dehydration, electrolyte imbalance, anemia, pneumonia, UTI, fibromyalgia flare up, myocardial infarction, renal failure, and liver failure, amongst others. Medical Records Attestation: I reviewed the patient's medical records. Home Medications Current Medication List: was personally reviewed by me Laboratory Data Attestation: I reviewed the patient's lab results. Result diagrams: 01/15/19 16:56 01/15/19 16:56 Lab Results 01/15/19 01/15/19 01/15/19 Range/Units 16:56 16:56 16:56 WBC 11.66 H (4.8-10.8) K/uL RBC 5.34 (4.2-5.4) M/uL Hgb 17.1 H (12.0-16.0) g/dL Hct 46.8 (37-47) % MCV 87.6 (80-100) fL MCH 32.0 (25-34) pg MCHC 36.5 H (32-36) g/dL RDW Std Deviation 39.5 (36.4-46.3) fL RDW Coeff of [place] 12.4 (11.5-14.5) % Plt Count 268 (130-400) K/uL MPV 9.0 (7.4-10.4) fL Immature Gran % (Auto) 0.4 % Neut % (Auto) 63.0 % Lymph % (Auto) 25.2 % Wells % (Auto) 9.9 % Eos % (Auto) 0.9 % Baso % (Auto) 0.6 % Immature Gran # (Auto) 0.05 H (0.00-0.02) K/uL Neut # (Auto) 7.35 H (1.4-6.5) K/uL Lymph # (Auto) 2.94 (1.2-3.4) K/uL Wells # (Auto) 1.15 H (0.11-0.59) K/uL Eos # (Auto) 0.10 (0-0.5) K/uL Baso # (Auto) 0.07 (0-0.2) K/uL Sodium 134 L (136-145) mmol/L Potassium 2.6 L (3.5-5.1) mmol/L Chloride 94 L (98-107) mmol/L Carbon Dioxide 30 (21-32) mmol/L Anion Gap 10.0 (3-11) BUN 20 H (7-18) mg/dl Creatinine 1.56 H (0.6-1.2) mg/dl Est Cr Clr Drug Dosing 35.7 ml/min Est GFR ( Amer) 40.3 Est GFR (Non-Af Amer) 34.8 BUN/Creatinine Ratio 12.6 (10-20) Glucose 92 (70-99) mg/dl Calcium 10.8 H (8.5-10.1) mg/dl Magnesium 2.3 (1.8-2.4) mg/dl Total Bilirubin 0.6 (0.2-1) mg/dl AST 18 (15-37) U/L ALT 14 (12-78) U/L Alkaline Phosphatase 82 (45-117) U/L Troponin I < 0.015 (0-0.045) ng/ml Total Protein 8.1 (6.4-8.2) gm/dl Albumin 4.2 (3.4-5.0) gm/dl Globulin 3.9 (2.5-4.0) gm/dl Albumin/Globulin Ratio 1.1 (0.9-2) Urine Color Dark Yellow Urine Appearance Cloudy A (Clear) Urine pH 5.0 (4.5-7.5) Ur Specific [place] 1.037 H (1.000-1.030) Urine Protein Trace H (Negative) Urine Glucose (UA) Negative (Negative) Urine Ketones Trace H (Negative) Urine Blood Trace H (Negative) Urine Nitrite Negative (Negative) Urine Bilirubin Negative (Negative) Urine Urobilinogen Negative (Negative) Ur Leukocyte Esterase 2+ H (Negative) Urine WBC (Auto) >30 H (0-5) /hpf Urine RBC (Auto) 10-30 H (0-4) /hpf U Hyaline Cast (Auto) 1-5 (0-5) /lpf U Epithel Cells (Auto) 10-20 H (0-5) /lpf Urine Bacteria (Auto) Negative (Negative) Imaging Data Radiologist's Impression: Radiology results as stated below per my review and the radiologist's interpretation: XR chest 1V portable CLINICAL HISTORY: weakness COMPARISON STUDY: 07/12/2018 FINDINGS: The cardiac and mediastinal contours are normal. There is no evidence of focal pulmonary consolidation. There is no evidence of failure. No pleural effusions are visualized.[Postsurgical changes are present within the thoracolumbar spine. IMPRESSION: No active disease in the chest. Electronically signed by: Tai Ramirez M.D. 01/15/2019 5:25 PM ECG Data Attestation: I personally reviewed and interpreted this ECG as follows: Indication: tachycardia Rate (beats per minute): 81 Rhythm: normal sinus Findings: + nonspecific-ST abn; no PVC and no ST elevation Blood Pressure Blood Pressure Findings: Normal blood pressure Blood Pressure Disposition: further management by hospitalist MDM Narrative There is a mild leukocytosis at 11.6, this could be consistent with infection. Hemoglobin was elevated at 17, this is consistent with dehydration. Renal panel testing shows some acute kidney injury with a creatinine 1.5. Potassium was low at 2.6. No elevation to the liver enzymes. EKG showed a sinus rhythm, no acute ischemia. Cardiac enzyme testing x1 is not consistent with acute cardiac injury. Urinalysis returned consistent with infection, urine culture is pending. Chest film did not show pneumonia or CHF. The patient received IV Zofran for nausea, IV morphine for pain. She received IV and oral potassium. She received 1500 cc of IV saline for rehydration purposes. She was given a gram of IV ceftriaxone for the UTI. The patient presents with aching, increased back pain, difficulty with urination and burning with urination. She has been vomiting. Clinically, she seemed quite dehydrated. She was somewhat tachycardic. She was not toxic or febrile. I think the patient deserves a hospital stay. She has multiple issues that require correction. This will be very difficult to tackle outside the hospital especially given her vomiting. I spoke to the patient and case management. The on-call hospitalist has been consulted. Impression & Plan Dehydration, Hypokalemia, NINOSKA (acute kidney injury), Vomiting, Acute UTI Discharge Plan Visit Data Chief Complaint: Dehydration Stated Complaint: DEHYDRATION, JOINT PAIN ED Provider: Edwin Valencia Discharge Problem: Dehydration, Hypokalemia, NINOSKA (acute kidney injury), Vomiting, Acute UTI Patient Disposition: Being Evaluated by Hospitalist Forms Stand Alone Forms: My [facility] Prescriptions Prescriptions: No Action prednisone 5 mg Tablet 5 mg PO DAILY RF: 0 tramadol 50 mg Tablet 100 mg PO Q6 PRN (Reason: Pain) RF: 0 acetaminophen [Tylenol Extra Strength] 500 mg Tablet 1,000 mg PO Q4 PRN (Reason: Pain) RF: 0 potassium chloride [Klor-Con M20] 20 mEq Tablet,Er Particles/Crystals 20 meq PO DAILY RF: 0 levothyroxine [Levoxyl] 50 mcg Tablet 50 mcg PO DAILY RF: 0 ferrous sulfate 325 mg (65 mg iron) Tablet 325 mg PO BID RF: 0 gabapentin 300 mg Capsule 1,200 mg PO TID RF: 0 omeprazole 20 mg Capsule,Delayed Release(Dr/Ec) 20 mg PO BID RF: 0 albuterol sulfate 90 mcg/actuation Hfa Aerosol Inhaler 1 puff INHALATION QID PRN (Reason: cough, wheezing) RF: 0 topiramate [Topamax] 100 mg Tablet 100 mg PO QPM RF: 0 losartan 100 mg Tablet 100 mg PO DAILY RF: 0 lamotrigine [Lamictal] 100 mg Tablet 150 mg PO BID RF: 0 metaxalone 800 mg Tablet 800 mg PO QID RF: 0 duloxetine [Cymbalta] 60 mg Capsule,Delayed Release(Dr/Ec) 120 mg PO DAILY RF: 0 eszopiclone 2 mg Tablet 2 mg PO HS RF: 0 diclofenac sodium 1 % Gel 1 applic TOPICAL QID RF: 0 ondansetron HCl [Zofran] 8 mg Tablet 8 mg PO Q8 PRN (Reason: Nausea And Vomiting) RF: 0 meloxicam 15 mg Tablet 15 mg PO DAILY PRN (Reason: Pain) RF: 0 chlorthalidone 25 mg Tablet 25 mg PO DAILY RF: 0 hyoscyamine sulfate 0.125 mg Tablet 0.125 mg PO Q4 PRN (Reason: Abdominal Pain) RF: 0 topiramate [Topamax] 100 mg Tablet 50 mg PO QAM RF: 0 Referrals Referrals: Arpit Osman MD [Primary Care Provider] - Discharge Problem: Vomiting Qualifiers: Vomiting type: unspecified Vomiting Intractability: non-intractable Nausea presence: with nausea Qualified Code(s): R11.2 - Nausea with vomiting, unspecified The scribe's documentation has been prepared under my direction and personally reviewed by me in its entirety. I confirm that the note above accurately reflects all work, treatment, procedures, and medical decision making performed by me.
--- NOTE | 2019-01-15 17:27 | XRay Report ---
XR chest 1V portable CLINICAL HISTORY: weakness COMPARISON STUDY: 07/12/2018 FINDINGS: The cardiac and mediastinal contours are normal. There is no evidence of focal pulmonary co nsolidation. There is no evidence of failure. No pleural effusions are visualized.[Postsurgical de guzman es are present within the thoracolumbar spine. IMPRESSION: No active disease in the chest. Electronically signed by: Tai Ramirez M.D. 01/15/2019 5:25 PM
[2019-01-15 17:48] LABS: Hematocrit (blood only) 46.8 % (37-47); Hemoglobin 17.1 g/dL (12.0-16.0); Mean Corpuscular Hgb Conc 36.5 g/dL (32-36); Mean Corpuscular Volume 87.6 fL (80-100); Platelet Count 268 K/uL (130-400); RDW Coefficient of Variation 12.4 % (11.5-14.5); RDW Standard Deviation 39.5 fL (36.4-46.3); Red Blood Count 5.34 M/uL (4.2-5.4); White Blood Count 11.66 K/uL (4.8-10.8)
[2019-01-15 17:58] LABS: Appearance Urine Cloudy (Clear); Bacteria Urine Automated Negative (Negative); Blood Urine Trace (Negative); Color Urine Dark Yellow; Glucose Urine UA Negative (Negative); Ketones Urine Trace (Negative); Leukocyte Esterase Urine 2+ (Negative); Nitrite Urine Negative (Negative); Protein Urine Trace (Negative); Specific Gravity Urine 1.037 (1.000-1.030); Urobilinogen Urine Negative (Negative); WBC Urine Automated >30 /hpf (0-5)
[2019-01-15 18:04] LABS: Alanine Aminotransferase 14 U/L (12-78); Albumin Level 4.2 gm/dl (3.4-5.0); Aspartate Aminotransferase 18 U/L (15-37); BUN Creatinine Ratio 12.6 (10-20); Blood Urea Nitrogen 20 mg/dl (7-18); Calcium 10.8 mg/dl (8.5-10.1); Carbon Dioxide 30 mmol/L (21-32); Chloride 94 mmol/L (98-107); Creatinine Clr Calc Pharmacy 35.7 ml/min; Est GFR (African American) 40.3; Est GFR (Non-African American) 34.8; Glucose 92 mg/dl (70-99); Magnesium 2.3 mg/dl (1.8-2.4); Potassium 2.6 mmol/L (3.5-5.1); Sodium 134 mmol/L (136-145)
[2019-01-15 18:07] LABS: Bilirubin Urine Negative (Negative); Ictotest Urine Negative (Negative)
[2019-01-15 18:09] LABS: Albumin Globulin Ratio 1.1 (0.9-2); Alkaline Phosphatase 82 U/L (45-117); Bilirubin,Total 0.6 mg/dl (0.2-1); Globulin 3.9 gm/dl (2.5-4.0); Total Protein 8.1 gm/dl (6.4-8.2); Troponin I < 0.015 ng/ml (0-0.045)
[2019-01-15] MEDS ORDERED: POTASSIUM CHLORIDE / WTR 10 MEQ/100 ML PLCT IV ONE (18:09)
[2019-01-15] MEDS ORDERED: SODIUM CHLORIDE 0.9% 1000ML 500 ML IV ONE (18:09)
[2019-01-15] MEDS ORDERED: POTASSIUM CHLORIDE 20 MEQ TABCR PO STA (18:09)
[2019-01-15] MEDS ORDERED: cefTRIAXone SODIUM 1,000 MG/50 ML BAG IV STA (18:12)
[2019-01-15 18:16] LABS: Basophils # (auto) 0.07 K/uL (0-0.2); Basophils % (auto) 0.6 %; Eosinophils % (auto) 0.9 %; Immature Granulocytes # (auto) 0.05 K/uL (0.00-0.02); Immature Granulocytes % (auto) 0.4 %; Lymphocytes # (auto) 2.94 K/uL (1.2-3.4); Lymphocytes % (auto) 25.2 %; Monocytes # (auto) 1.15 K/uL (0.11-0.59); Monocytes % (auto) 9.9 %; Neutrophils # (auto) 7.35 K/uL (1.4-6.5)
--- NOTE | 2019-01-15 19:38 | History & Physical Report ---
Date of Service January 15, 2019 Assessment & Plan (1) Back pain: The patient reports back pain for the last month . She underwent an MRI of the lumbar spine on 12/22 as an outpatient which revealed postoperative changes with no immediate complication, chronic compression fractures of T9, T10 and T12 and multilevel degenerative disc disease and spondylosis with no high-grade stenosis. She reports seeing her orthopedic spine surgeon in clinic approximately 2 weeks ago who recommended localized injection therapy (records are unavailable to confirm). She was referred to pain management but was unsuccessful in receiving the injections. She reports being able to walk but prefers to stay in bed as this helps the pain. She reports the pain is localized to the lower back and is better with morphine. She is easily sitting up in bed without any guarding of this area. Continue supportive care measures for her back pain including morphine, tramadol or Vicodin. Consider lidocaine patch. Continue ice to area as she has been doing this with success at home. PT/OT to assess limitations at home. (2) NINOSKA (acute kidney injury): Baseline creat 1.1-1.2, Likely secondary to dehydration secondary to not eating or drinking well recently as well as chronic diarrhea state. One episode of vomiting which was not persistent. Will give IV fluids and repeat labs in a.m. Hold losartan, chlorthalidone and diclofenac. (3) C. difficile diarrhea: Recently saw GI on 01/13. Confirmed C. difficile PCR at that time was negative. Continue with isolation precautions as patient has had recurrent infections and recently stopped her vancomycin antibiotic regimen. She is persistently having diarrhea per her report. This is also contributing to dehydration and NINOSKA as above. (4) Hypokalemia: Replace IV/p.o. and repeat in a.m. Magnesium level is normal. (5) Acute UTI: Rocephin started empirically pending urine cultures. (6) Hypothyroid: Continue home dose levothyroxine. (7) Fibromyalgia: Continue home medications including tramadol, Ativan, Skelaxin, gabapentin, Cymbalta. (8) Pressure injury of sacral region, stage 1: Optifoam to area, wound to see. Nursing to keep patient off this area as much as possible. (9) DVT prophylaxis: Heparin Full Code Dispo-to home in am if NINOSKA resolved and feeling better and tolerating PO reliably. PT/OT to see in am. DO Reno Vieraer Hospitalist History of Present Illness Chief Complaint: back pain Primary Care Provider: Arpit Osman MD 63-year-old female with bipolar disorder and fibromyalgia as well as chronic back pain presents with acute on chronic back pain. She states for the last 2 weeks she has had severe lower back pain. She reports seeing her back surgeon who recommended a trial of injections, requiring referral to pain management. She reports when she went to see the pain management doctor he was unavailable and she is still in pain. This was 4 days ago. She takes many medications that interact including tramadol, Skelaxin, gabapentin, Ativan. She is on chronic prednisone 5 mg p.o. daily. She states that none of these help her pain. She has a history of meloxicam use which she states does not work. She did e xperience some relief with morphine IV and states that Dilaudid has worked in the past also. She reports that for the past 7 months she has been "bedridden" however, she does live alone and is able to perform her activities of daily living. She reports persistent diarrhea with 4-6 watery bowel movements daily. She stopped her vancomycin last week under supervision of her GI physician who is planning a fecal transplant in upcoming weeks. She reports that just today she experienced dysuria and chills with some suprapubic tenderness. She denies any flank pain and states that she has had low-grade fevers for the last 7 months that have not changed with the C. difficile infection. She reports feeling rundown and as a result of this has some shortness of breath but denies any chest pain. She has some erythema with a closed sore on her sacrum, which she reports is a know bedsore which causes her pain. She otherwise denies any symptoms. With respect to eating she states she has a loss of appetite secondary to the pain. She did vomit once this morning but this has not been refractory. She was able to swallow potassium pill in the ER and keep it down. She was able to swallow a potassium pill in the ER keep it down. Allergies Allergy/AdvReac Type Severity Reaction Status Date / Time cyclobenzaprine Allergy Intermediate RASH AND Verified 01/15/19 17:16 SWELLING fentanyl Allergy Intermediate MAJOR FEET Verified 01/15/19 17:16 SWELLING ketorolac [From Toradol] Allergy Unknown SEE COMMENT Verified 01/15/19 17:16 oxcarbazepine Allergy Unknown UNKNOWN - Verified 01/15/19 17:16 PT DOESN'T REMEMBER risperidone AdvReac Intermediate exhaustion Verified 01/15/19 17:16 clonazepam AdvReac Mild nausea Verified 01/15/19 17:16 Home Medications Home Medications Medication Instructions Recorded Confirmed Type acetaminophen [Tylenol Extra 1,000 mg PO Q4 PRN 08/18/18 01/15/19 History Strength] albuterol sulfate 1 puff INHALATION QID PRN 08/18/18 01/15/19 History diclofenac sodium 1 applic TOPICAL QID 08/18/18 01/15/19 History duloxetine [Cymbalta] 120 mg PO DAILY 08/18/18 01/15/19 History eszopiclone 2 mg PO HS 08/18/18 01/15/19 History ferrous sulfate 325 mg PO BID 08/18/18 01/15/19 History gabapentin 1,200 mg PO TID 08/18/18 01/15/19 History lamotrigine [Lamictal] 150 mg PO BID 08/18/18 01/15/19 History levothyroxine [Levoxyl] 50 mcg PO DAILY 08/18/18 01/15/19 History losartan 100 mg PO DAILY 08/18/18 01/15/19 History metaxalone 800 mg PO QID 08/18/18 01/15/19 History omeprazole 20 mg PO BID 08/18/18 01/15/19 History potassium chloride [Klor-Con M20] 20 meq PO DAILY 08/18/18 01/15/19 History prednisone 5 mg PO DAILY 08/18/18 01/15/19 History topiramate [Topamax] 100 mg PO QPM 08/18/18 01/15/19 History tramadol 100 mg PO Q6 PRN 08/18/18 01/15/19 History chlorthalidone 25 mg PO DAILY 01/15/19 01/15/19 History diltiazem HCl 120 mg PO DAILY 01/15/19 01/15/19 History hyoscyamine sulfate 0.125 mg PO Q4 PRN 01/15/19 01/15/19 History lorazepam 1 mg PO Q12H PRN 01/15/19 01/15/19 History meloxicam 15 mg PO DAILY PRN 01/15/19 01/15/19 History ondansetron HCl [Zofran] 8 mg PO Q8 PRN 01/15/19 01/15/19 History topiramate [Topamax] 50 mg PO QAM 01/15/19 01/15/19 History Past Med/Surg History Medical History Depression (Chronic) HTN (hypertension) (Chronic) Bipolar disorder (Chronic) Fibromyalgia (Chronic) Borderline personality disorder Hypokalemia Hyponatremia (Acute) Polypharmacy Wound abscess (Chronic) CKD (chronic kidney disease), stage III IBS (irritable bowel syndrome) Recurrent Clostridioides difficile diarrhea Hypothyroid (Chronic) Surgical History H/O inguinal hernia repair (Chronic) Status post total hip replacement, left (Chronic) History of back surgery (Chronic) H/O carpal tunnel repair S/P cataract surgery Family History Other Cancer Heart disease Hypertension Lung disease Social History Preferred Language: Irish Communication Ability: Effective Beliefs That Will Affect Care: None marital status: / Current Living Situation: Alone current occupational status: retired Feels Safe at Home: Yes Smoking Status: Former smoker Hx Alcohol Use: No Hx Substance Use: No Review of Systems Review of Systems: All systems reviewed & are unremarkable except as noted in HPI & below Physical Exam Physical Exam: CONSTITUTIONAL: WNWD, vitals as above, generally well- appearing EYES: normal conjunctivae, no scleral icterus ENT: mucous membranes are dry RESPIRATORY: clear to auscultation bilaterally, no crackles, rales or wheezes, normal respiratory effort CARDIOVASCULAR: regular rate and rhythm, S1 and 2 heard without murmurs, gallops or rubs, no JVD, no peripheral edema GASTROINTESTINAL: normal bowel sounds, soft, generalized tenderness in spots without guarding. Nondistended, no CVA tenderness MUSCULOSKELETAL: strength 5/5 throughout, head is normocephalic and atraumatic SKIN: warm and dry NEUROLOGIC: No facial palsy, no dysarthria. CN 2-12 grossly intact, normal cognition, normal speech, no tremor, no gross focal deficits. PSYCHIATRIC: alert cooperative and oriented to person, place and time. Results & Data Vital Signs (Past 12 Hours) Vital Signs Temp Pulse Resp BP Pulse Ox 01/15/19 16:37 36.6 C 110 H 20 133/81 98 Laboratory Results Short CBC 01/15/19 Range/Units 16:56 WBC 11.66 H (4.8-10.8) K/uL Hgb 17.1 H (12.0-16.0) g/dL Hct 46.8 (37-47) % Plt Count 268 (130-400) K/uL BMP 01/15/19 16:56 Sodium 134 L Potassium 2.6 L Chloride 94 L Carbon Dioxide 30 BUN 20 H Creatinine 1.56 H Glucose 92 Calcium 10.8 H Cardiac Enzymes 01/15/19 Range/Units 16:56 Troponin I < 0.015 (0-0.045) ng/ml Liver Function 01/15/19 Range/Units 16:56 Total Bilirubin 0.6 (0.2-1) mg/dl AST 18 (15-37) U/L ALT 14 (12-78) U/L Alkaline Phosphatase 82 (45-117) U/L Albumin 4.2 (3.4-5.0) gm/dl Urine 01/15/19 Range/Units 16:56 Urine Color Dark Yellow Urine Appearance Cloudy A (Clear) Urine pH 5.0 (4.5-7.5) Ur Specific [place] 1.037 H (1.000-1.030) Urine Protein Trace H (Negative) Urine Glucose (UA) Negative (Negative) Diagnostic Findings XR chest 1V portable CLINICAL HISTORY: weakness COMPARISON STUDY: 07/12/2018 FINDINGS: The cardiac and mediastinal contours are normal. There is no evidence of focal pulmonary consolidation. There is no evidence of failure. No pleural effusions are visualized.[Postsurgical changes are present within the thoracolumbar spine. IMPRESSION: No active disease in the chest. Medications Administered GIVEN IN ER: Ceftriaxone 1 g IV, potassium chloride 10 mEq IV, sodium chloride 1.5 L, potassium chloride 40 mEq p.o., morphine sulfate 4 mg IV x2 doses, Zofran 4 mill grams IV. Code Status & VTE Plan Code Status fULL VTE Prophylaxis Plan VTE Prophylaxis will be ordered: Yes Critical Care Time Critical Care Time: No
[2019-01-15] MEDS ORDERED: ALBUTEROL HFA 8 GM INHALER INH PRN (20:35)
[2019-01-15] MEDS ORDERED: TOPIRAMATE 100 MG TAB PO SCH (21:00)
[2019-01-15] MEDS: SODIUM CHLORIDE 0.9% 1000ML 1,000 ML IV SCH (21:09)
[2019-01-15] MEDS ORDERED: POTASSIUM CHLORIDE 40 MEQ in SODIUM CHLORIDE 0.9% 500 ML IV SCH (21:30)
[2019-01-15 21:35] LABS: Prothrombin Time 10.5 Seconds (9.0-12.0)
[2019-01-15] MEDS: METAXALONE 800 MG TABLET PO SCH (21:48)
[2019-01-15] MEDS: GABAPENTIN 600 MG TAB PO SCH (21:48)
[2019-01-15] MEDS: lamoTRIgine 100 MG TAB PO SCH (21:48)
[2019-01-15] MEDS: FERROUS SULFATE 325 MG TAB PO SCH (21:48)
[2019-01-15] MEDS: ONDANSETRON INJ 2 MG/ML 2 ML VIAL IV PRN (21:59)
[2019-01-15] MEDS: ESZOPICLONE 2 MG TABLET PO SCH (21:59)
[2019-01-16] MEDS: HYDROCODONE/ACETAMOPHEN 5/325MG TAB PO PRN ×3 (00:09→17:27)
[2019-01-16] MEDS: HEPARIN SOD 5,000 UNIT/0.5 ML VIAL SQ SCH ×3 (00:10→13:27)
[2019-01-16] MEDS: MoRPHine SULFATE 4 MG/ML 1 ML CARP\\VIAL IV PRN ×4 (01:58→15:12)
[2019-01-16] MEDS: SODIUM CHLORIDE 0.9% 1000ML 1,000 ML IV SCH (04:09)
[2019-01-16] MEDS: ONDANSETRON INJ 2 MG/ML 2 ML VIAL IV PRN ×2 (04:29→11:35)
[2019-01-16] MEDS: LEVOTHYROXINE SODIUM 50 MCG TABLET PO SCH (05:52)
[2019-01-16 06:07] LABS: Hematocrit (blood only) 37.8 % (37-47); Hemoglobin 13.1 g/dL (12.0-16.0); Mean Corpuscular Hgb Conc 34.7 g/dL (32-36); Platelet Count 199 K/uL (130-400); RDW Coefficient of Variation 12.7 % (11.5-14.5); RDW Standard Deviation 41.2 fL (36.4-46.3); White Blood Count 4.52 K/uL (4.8-10.8)
[2019-01-16 06:50] LABS: BUN Creatinine Ratio 14.3 (10-20); Calcium 8.6 mg/dl (8.5-10.1); Creatinine Clr Calc Pharmacy 50.7 ml/min; Est GFR (African American) 59.5; Est GFR (Non-African American) 51.3; Magnesium 2.2 mg/dl (1.8-2.4)
[2019-01-16 07:07] LABS: Potassium 3.4 mmol/L (3.5-5.1)
[2019-01-16] MEDS: predniSONE 5 MG TAB PO SCH (07:42)
[2019-01-16] MEDS: METAXALONE 800 MG TABLET PO SCH ×4 (07:42→21:01)
[2019-01-16] MEDS: dilTIAZem ER 120 MG CAPCR PO SCH (07:42)
[2019-01-16] MEDS: GABAPENTIN 600 MG TAB PO SCH ×3 (07:42→21:00)
[2019-01-16] MEDS: DULOXETINE HCL 60 MG CAP PO SCH (07:43)
[2019-01-16] MEDS: lamoTRIgine 100 MG TAB PO SCH ×2 (07:43→21:01)
[2019-01-16] MEDS: FERROUS SULFATE 325 MG TAB PO SCH ×2 (07:43→21:01)
[2019-01-16] MEDS: POTASSIUM CHLORIDE 20 MEQ TABCR PO SCH (07:43)
[2019-01-16] MEDS ORDERED: TOPIRAMATE 100 MG TAB PO SCH (09:00)
[2019-01-16] MEDS: LORazepam 1 MG TAB PO PRN (17:06)
--- NOTE | 2019-01-16 18:34 | Hospitalist Progress Note ---
Date of Service January 16, 2019 Assessment & Plan (1) Sacroiliac joint disease: Severe SI pain requiring narcotic analgesics for adequate relief. Recent MRI from [facility] requested to be transferred to [facility]'s PACS system. Consult Pain Management. Continue analgesics. PT/OT. (2) NINOSKA (acute kidney injury): Serum creatinine at time of admission 1.56 compared to baseline of approximately 1.1. Acute kidney injury probably secondary to volume depletion from chronic/persistent diarrhea and poor p.o. fluid intake. Received IV fluids. Creatinine today 1.13. (3) Hypokalemia: Serum potassium at time of admission was 2.6. Hypokalemia probably secondary to chronic diarrhea and inadequate oral intake. Received replacement. Potassium today = 3.4. Follow. (4) Urinary tract infection: Urinalysis demonstrated leukocyte esterase, pyuria, bacteriuria. Urine culture pending. Receiving IV ceftriaxone pending culture results. (5) Hypertension: Continue losartan. (6) C. difficile diarrhea: Chronic/recurrent C. difficile. Fecal transplant in the near future is anticipated. C. difficile PCR was negative a few days ago. Receiving antibiotics for suspected UTI. Add probiotics to regimen. (7) Pressure injury of sacral region, stage 1: Patient has been relatively immobile because of her back and sacroiliac pain. Avoid pressure/reposition. Wound Care Nursing consulted. (8) Vomiting: Frequent nausea and vomiting which patient attributes to her severe pain. Medications may be a contributing factor. Antiemetics PRN. Consider GI evaluation if symptoms persist. (9) Hypothyroidism: Continue levothyroxine. (10) DVT prophylaxis: Initially received SQ heparin. Heparin will be held in anticipation of possible invasive procedures by Pain Management. SCDs. Ambulate. (11) Discharge planning issues: Ambulatory dysfunction due to back/sacroiliac pain and deconditioning. May benefit from skilled care or inpatient rehab. PT/OT. Case Management following. Family Medicine follow-up with Dr. Osman. Subjective Recheck for multiple problems. Patient seen in their room around 13:30. Ongoing low back / posterior pelvic pain. Gets some relief from narcotic analgesics. Ambulated with PT with assistance and cane, but was very uncomfortable. Poor PO intake due to nausea attributed to pain. Small loose stool this morning (has chronic diarrhea). Review of Systems: Constitutional- no fever. Cardiac- no chest pain. Pulmonary- no cough or SOB. GI- as noted above. - no urinary symptoms. Otherwise, as noted above. Physical Exam Constitutional: no acute distress Respiratory: no respiratory distress Auscultation: lungs clear to auscultation bilaterally Cardiovascular: Rate/Rhythm: regular rate and regular rhythm Heart Sounds: no gallop and no murmur Vessels: no JVD Extremities: no calf tenderness and no edema Gastrointestinal (Abdomen): normal bowel sounds, soft, nontender, no hepatosplenomegaly Musculoskeletal: Spine: + sacral tenderness (over right SI joint) Ext remities: no cyanosis and no clubbing Skin: no rashes, warm and dry Psychiatric: Orientation: alert and oriented x 3 Results & Data Vital Signs (Past 12 Hours) Vital Signs Temp Pulse Resp BP Pulse Ox 01/16/19 14:33 36.7 C 59 L 20 105/66 97 01/16/19 11:25 36.4 C L 69 18 112/73 98 01/16/19 10:06 79 L 01/16/19 07:00 36.8 C 60 20 117/74 97 Laboratory Results Laboratory Results - last 24 hr 01/15/19 01/15/19 01/15/19 16:56 16:56 21:14 WBC RBC Hgb Hct MCV MCH MCHC RDW Std Deviation RDW Coeff of Irving Plt Count MPV Immature Gran % (Auto) 0.4 Neut % (Auto) 63.0 Lymph % (Auto) 25.2 Walker % (Auto) 9.9 Eos % (Auto) 0.9 Baso % (Auto) 0.6 Immature Gran # (Auto) 0.05 H Neut # (Auto) 7.35 H Lymph # (Auto) 2.94 Walker # (Auto) 1.15 H Eos # (Auto) 0.10 Baso # (Auto) 0.07 PT 10.5 INR 1.0 Sodium Potassium Chloride Carbon Dioxide Anion Gap BUN Creatinine Est Cr Clr Drug Dosing Est GFR ( Amer) Est GFR (Non-Af Amer) BUN/Creatinine Ratio Glucose Calcium Magnesium U Hyaline Cast (Auto) 1-5 01/16/19 01/16/19 05:52 05:52 WBC 4.52 L D RBC 4.20 Hgb 13.1 D Hct 37.8 MCV 90.0 MCH 31.2 MCHC 34.7 RDW Std Deviation 41.2 RDW Coeff of Irving 12.7 Plt Count 199 MPV 9.0 Immature Gran % (Auto) Neut % (Auto) Lymph % (Auto) Walker % (Auto) Eos % (Auto) Baso % (Auto) Immature Gran # (Auto) Neut # (Auto) Lymph # (Auto) Walker # (Auto) Eos # (Auto) Baso # (Auto) PT INR Sodium 137 Potassium 3.4 L D Chloride 102 Carbon Dioxide 28 Anion Gap 6.0 BUN 16 Creatinine 1.13 D Est Cr Clr Drug Dosing 50.7 Est GFR ( Amer) 59.5 Est GFR (Non-Af Amer) 51.3 BUN/Creatinine Ratio 14.3 Glucose 126 H Calcium 8.6 D Magnesium 2.2 U Hyaline Cast (Auto) (1) Vomiting Nausea presence: with nausea Vomiting Intractability: non-intractable Vomiting type: unspecified Qualified Code(s): R11.2 - Nausea with vomiting, unspecified
[2019-01-16] MEDS: cefTRIAXone SODIUM 1,000 MG in DEXTROSE 5% 50 ML IV SCH (19:52)
[2019-01-16] MEDS: TOPIRAMATE 100 MG TAB PO SCH (21:00)
[2019-01-17] MEDS: ESZOPICLONE 2 MG TABLET PO SCH (01:48)
[2019-01-17] MEDS: MoRPHine SULFATE 4 MG/ML 1 ML CARP\\VIAL IV PRN (04:45)
[2019-01-17] MEDS: LEVOTHYROXINE SODIUM 50 MCG TABLET PO SCH (06:02)
[2019-01-17] MEDS: HYDROCODONE/ACETAMOPHEN 5/325MG TAB PO PRN ×2 (06:26→18:02)
[2019-01-17] MEDS: predniSONE 5 MG TAB PO SCH (07:52)
[2019-01-17] MEDS: METAXALONE 800 MG TABLET PO SCH ×4 (07:52→21:38)
[2019-01-17] MEDS: dilTIAZem ER 120 MG CAPCR PO SCH (07:52)
[2019-01-17] MEDS: POTASSIUM CHLORIDE 20 MEQ TABCR PO SCH (07:53)
[2019-01-17] MEDS: lamoTRIgine 100 MG TAB PO SCH ×2 (07:53→21:37)
[2019-01-17] MEDS: GABAPENTIN 600 MG TAB PO SCH ×3 (07:53→21:37)
[2019-01-17] MEDS: DULOXETINE HCL 60 MG CAP PO SCH (07:53)
[2019-01-17] MEDS: FERROUS SULFATE 325 MG TAB PO SCH ×2 (07:53→21:38)
[2019-01-17 08:06] LABS: BUN Creatinine Ratio 12.2 (10-20); Calcium 9.6 mg/dl (8.5-10.1); Creatinine Clr Calc Pharmacy 60.4 ml/min; Est GFR (African American) 73.4; Est GFR (Non-African American) 63.3; Potassium 3.8 mmol/L (3.5-5.1)
[2019-01-17] MEDS: LIDOCAINE 5% 1 PATCH TD SCH (09:19)
--- NOTE | 2019-01-17 09:40 | Pain Management Consultation ---
Date of Consultation January 17, 2019 Assessment & Plan (1) Sacroiliac joint disease: Patient is unable to have a right SI joint injection performed due to concurrent urinary tract infection. For an injection we do ask that the patient be finished from antibiotic course for 2 weeks. There is also a significant history of C. difficile and a stage one pressure ulcer. When I told the patient that the procedure could not be performed today she became irate and cursing towards myself and accompanying nurse. Patient is crying and screaming. She has fully optimized medications including Cymbalta, Gabapentin, and Skalexin. Continue Hydrocodone PO and Morphine IV PRN breakthrough pain. I have ordered an ice pack to be applied onto the low back as well as a lidocaine patch. Could consider an oral steroid course. At this time she is not a candidate for interventional procedures. On discharge would recommend she resume her regular medication regimen. She may benefit from an at home TENS unit. History of Present Illness Attending Physician: Mary Irving MD History of Present Illness Mrs. Odom is a 63 year old white female that has been seen in consultation for low back pain. Patient does have a significant history of two back surgeries which resulted in a T10-L5 [place] [address] Priest. Patient states that over the past 7 months she has had terrible low back pain and over the past 3 weeks it has been worse. She describes a deep aching pain in the right low back with radicular symptoms along the lateral aspect of the right greater than left leg to the feet. The radicular symptoms are described as an aching and numbness sensation. The right leg felt heavy once or twice over the last several weeks. Pain is rated 7/10 currently. She is currently on Gabapentin 1200mg TID, Cymbalta 120mg daily, and Skalexin 800mg QID. At home she typically takes Tramadol 100mg x 6 hours which "keeps my head above water" in regards to chronic low back pain and chronic fibromyalgia pain. In the hospital setting she is taking Hydrocodone 5/325mg x 6 hours and Morphine 4mg IV PRN which is moderately effective towards diminishing her pain. Patient states that she lives at home alone and bedridden but also able to perform all of her daily activities. She states that she did see Oscar Singh PA-C recently and advised to see Dr. Mckenna for an injection. She was then not able to get the injection so she became hysterical at [facility] and nursing staff had to take her in a separate room and attempt to comfort her. Patient denies any bowel/bladder incontinence, saddle anesthesia, foot drop, or falls. Case discussed with Dr. Oconnor Allergies Allergy/AdvReac Type Severity Reaction Status Date / Time cyclobenzaprine Allergy Intermediate RASH AND Verified 01/15/19 17:16 SWELLING fentanyl Allergy Intermediate MAJOR FEET Verified 01/15/19 17:16 SWELLING ketorolac [From Toradol] Allergy Unknown SEE COMMENT Verified 01/15/19 17:16 oxcarbazepine Allergy Unknown UNKNOWN - Verified 01/15/19 17:16 PT DOESN'T REMEMBER risperidone AdvReac Intermediate exhaustion Verified 01/15/19 17:16 clonazepam AdvReac Mild nausea Verified 01/15/19 17:16 Home Medications Home Medications Medication Instructions Recorded Confirmed Type acetaminophen [Tylenol Extra 1,000 mg PO Q4 PRN 08/18/18 01/15/19 History Strength] albuterol sulfate 1 puff INHALATION QID PRN 08/18/18 01/15/19 History diclofenac sodium 1 applic TOPICAL QID 08/18/18 01/15/19 History duloxetine [Cymbalta] 120 mg PO DAILY 08/18/18 01/15/19 History eszopiclone 2 mg PO HS 08/18/18 01/15/19 History ferrous sulfate 325 mg PO BID 08/18/18 01/15/19 History gabapentin 1,200 mg PO TID 08/18/18 01/15/19 History lamotrigine [Lamictal] 150 mg PO BID 08/18/18 01/15/19 History levothyroxine [Levoxyl] 50 mcg PO DAILY 08/18/18 01/15/19 History losartan 100 mg PO DAILY 08/18/18 01/15/19 History metaxalone 800 mg PO QID 08/18/18 01/15/19 History omeprazole 20 mg PO BID 08/18/18 01/15/19 History potassium chloride [Klor-Con M20] 20 meq PO DAILY 08/18/18 01/15/19 History prednisone 5 mg PO DAILY 08/18/18 01/15/19 History topiramate [Topamax] 100 mg PO QPM 08/18/18 01/15/19 History tramadol 100 mg PO Q6 PRN 08/18/18 01/15/19 History chlorthalidone 25 mg PO DAILY 01/15/19 01/15/19 History diltiazem HCl 120 mg PO DAILY 01/15/19 01/15/19 History hyoscyamine sulfate 0.125 mg PO Q4 PRN 01/15/19 01/15/19 History lorazepam 1 mg PO Q12H PRN 01/15/19 01/15/19 History meloxicam 15 mg PO DAILY PRN 01/15/19 01/15/19 History ondansetron HCl [Zofran] 8 mg PO Q8 PRN 01/15/19 01/15/19 History topiramate [Topamax] 50 mg PO HS 01/15/19 01/16/19 History Patient History Medical History Hypothyroid (Chronic) CKD (chronic kidney disease), stage III Recurrent Clostridioides difficile diarrhea IBS (irritable bowel syndrome) Hypothyroidism (Chronic) Hypertension (Chronic) Pressure injury of sacral region, stage 1 (Chronic) C. difficile diarrhea (Chronic) Depression (Chronic) Bipolar disorder (Chronic) Fibromyalgia (Chronic) Borderline personality disorder (Chronic) Hypokalemia Hyponatremia (Acute) Polypharmacy (Chronic) Wound abscess (Resolved) Surgical History S/P cataract surgery H/O carpal tunnel repair H/O inguinal hernia repair (Chronic) Status post total hip replacement, left (Chronic) Family History Other Cancer Heart disease Hypertension Lung disease Social History Preferred Language: Maltese Communication Ability: Effective Crimper Operator Required: No Beliefs That Will Affect Care: None marital status: / Current Living Situation: Alone current occupational status: retired Feels Safe at Home: Yes Smoking Status: Former smoker Hx Alcohol Use: No Hx Substance Use: No Physical Exam Physical Exam: GENERAL: 63 year old white female does not appear in acute distress with positional changes or with ambulation. Speech and cognition is intact. Patient is very anxious. Yelling and cursing at myself and accompanying nurse. BACK: Large thoracolumbar incision. Moderate thoracic kyphosis. There is focal tenderness along the right SI joint. No muscle spasm or myoneural trigger point noted. LOWER EXTREMITIES: Negative straight leg raise bilaterally. 5/5 strength of the bilateral lower extremities. Positive Diego maneuver on the right, negative on the left. NEURO: Ambulates without difficulty. Awake, alert, and oriented x 3.
[2019-01-17] MEDS: LACTOBACILLUS ACIDOPHILUS (FLORANEX) TAB PO SCH ×2 (13:18→16:53)
[2019-01-17] MEDS: TRAMADOL HCL 50 MG TABLET PO PRN (13:56)
--- NOTE | 2019-01-17 13:57 | Hospitalist Progress Note ---
Date of Service January 17, 2019 Assessment & Plan (1) Sacroiliac joint disease: Severe SI pain requiring narcotic analgesics for adequate relief. Recent MRI from [facility] requested to be transferred to [facility] PACS system. Consult Pain Management-appreciate input recommends out pt follow up not safe for SI joint injection , due to UTI , risk of serious complication of joint infection Continue analgesics. PT/OT. (2) NINOSKA (acute kidney injury): resolved Serum creatinine at time of admission 1.56 compared to baseline of approximately 1.1. Acute kidney injury probably secondary to volume depletion from chronic/persistent diarrhea and poor p.o. fluid intake. Received IV fluids. (3) Hypokalemia: corrected Hypokalemia probably secondary to chronic diarrhea and inadequate oral intake. Received replacement. (4) Urinary tract infection: Urinalysis demonstrated leukocyte esterase, pyuria, bacteriuria. Urine culture pending. Receiving IV ceftriaxone pending culture results. SI joint injection kept on hold for ongoing UTI (5) Hypertension: Continue losartan. (6) C. difficile diarrhea: Chronic/recurrent C. difficile. Fecal transplant in the near future is anticipated. C. difficile PCR was negative a few days ago. Receiving antibiotics for suspected UTI. Add probiotics to regimen. (7) Pressure injury of sacral region, stage 1: Patient has been relatively immobile because of her back and sacroiliac pain. Avoid pressure/reposition. Wound Care Nursing consulted-appreciate input no open wound noted small blanchable area on sacral and coccyx area recommend repositioning , off loading PT/OT -eval appreciated , pt is at baseline functional status -recommends return home with home health /home PT pt is encourged to be OOB as possible (8) Vomiting: resovled tolerating diet well (9) Hypothyroidism: Continue levothyroxine. (10) DVT prophylaxis: sub q heparin SCDs. Ambulate. (11) Discharge planning issues: PT/OT eval recommends return home with home PT /home health Case Management following. Family Medicine follow-up with Dr. Osman. Subjective very emotionally labile upset as Pain management told her this morning , unable to have SI joint injection due to active infection /UTI she feels" she suffered enough , was told yesterday in ER that SI joint injection will be given now the hope is taken away" pt is counselled regarding risk for joint infection during the procedure while any active infection present -she seems to understand for sometime then started to cry and complain of rt hip pain " I can not live like this " Lidoderm patch ordered by pain management does not work" Please ask pain management to come and take away their patch " her pain has been ongoing for sometime , suggests that PT.OT proved to be beneficial in this setting She feels " that is torture" Physical Exam Constitutional: no acute distress Respiratory: no respiratory distress Auscultation: lungs clear to auscultation bilaterally Cardiovascular: Rate/Rhythm: regular rate and regular rhythm Heart Sounds: no gallop and no murmur Vessels: no JVD Extremities: no calf tenderness and no edema Gastrointestinal (Abdomen): normal bowel sounds, soft, nontender, no hepatosplenomegaly Musculoskeletal: Spine: + sacral tenderness (over right SI joint) Extremities: no cyanosis and no clubbing Skin: no rashes, warm and dry Psychiatric: Orientation: alert and oriented x 3 Results & Data Vital Signs (Past 12 Hours) Vital Signs Temp Pulse Resp BP Pulse Ox 01/17/19 04:59 36.9 C 70 20 116/69 92 (1) Vomiting Nausea presence: with nausea Vomiting Intractability: non-intractable Vomiting type: unspecified Qualified Code(s): R11.2 - Nausea with vomiting, unspecified
[2019-01-17] MEDS: ONDANSETRON INJ 2 MG/ML 2 ML VIAL IV PRN (16:52)
[2019-01-17] MEDS: LORazepam 1 MG TAB PO PRN (19:03)
[2019-01-17] MEDS: cefTRIAXone SODIUM 1,000 MG in DEXTROSE 5% 50 ML IV SCH (19:04)
[2019-01-17] MEDS: TOPIRAMATE 100 MG TAB PO SCH (21:37)
[2019-01-18] MEDS: ESZOPICLONE 2 MG TABLET PO SCH ×2 (02:01→23:13)
[2019-01-18] MEDS: HYDROCODONE/ACETAMOPHEN 5/325MG TAB PO PRN ×3 (06:04→23:23)
[2019-01-18] MEDS: HEPARIN SOD 5,000 UNIT/0.5 ML VIAL SQ SCH ×3 (06:05→20:55)
[2019-01-18] MEDS: LEVOTHYROXINE SODIUM 50 MCG TABLET PO SCH (06:05)
[2019-01-18] MEDS: METAXALONE 800 MG TABLET PO SCH ×4 (07:40→20:54)
[2019-01-18] MEDS: GABAPENTIN 600 MG TAB PO SCH ×3 (07:40→20:54)
[2019-01-18] MEDS: lamoTRIgine 100 MG TAB PO SCH ×2 (07:40→20:55)
[2019-01-18] MEDS: POTASSIUM CHLORIDE 20 MEQ TABCR PO SCH (07:40)
[2019-01-18] MEDS: predniSONE 5 MG TAB PO SCH (07:40)
[2019-01-18] MEDS: dilTIAZem ER 120 MG CAPCR PO SCH (07:40)
[2019-01-18] MEDS: LACTOBACILLUS ACIDOPHILUS (FLORANEX) TAB PO SCH ×3 (07:41→17:06)
[2019-01-18] MEDS: DULOXETINE HCL 60 MG CAP PO SCH (07:41)
[2019-01-18] MEDS: LIDOCAINE 5% 1 PATCH TD SCH (07:41)
[2019-01-18] MEDS: FERROUS SULFATE 325 MG TAB PO SCH ×2 (07:41→20:55)
[2019-01-18] MEDS: MoRPHine SULFATE 4 MG/ML 1 ML CARP\\VIAL IV PRN (10:37)
[2019-01-18] MEDS: TRAMADOL HCL 50 MG TABLET PO PRN (13:46)
--- NOTE | 2019-01-18 15:49 | Hospitalist Progress Note ---
Date of Service January 18, 2019 Assessment & Plan (1) Sacroiliac joint disease: Consulted Pain Managemen recommends out pt follow up not safe for SI joint injection , due to UTI , risk of serious complication of joint infection start Solumedrol, Ice packs continue PRN Morphine, [place], usual Tramadol, Gabapentin, [place] continue PT/OT (2) NINOSKA (acute kidney injury): resolved Serum creatinine at time of admission 1.56 compared to baseline of approximately 1.1. Acute kidney injury probably secondary to volume depletion from chronic/persistent diarrhea and poor p.o. fluid intake. Received IV fluids. (3) Hypokalemia: secondary to chronic diarrhea and inadequate oral intake. resolved (4) Urinary tract infection: Urinalysis demonstrated leukocyte esterase, pyuria, bacteriuria. Urine culture: pending on empiric Ceftriaxone IV (5) Hypertension: Continue losartan. (6) C. difficile diarrhea: Chronic/recurrent C. difficile Fecal transplant in the near future is anticipated. C. difficile PCR was negative a few days ago. Receiving antibiotics for suspected UTI on probiotics (7) Pressure injury of sacral region, stage 1: Patient has been relatively immobile because of her back and sacroiliac pain. Avoid pressure/reposition. Wound Care Nursing consulted-appreciate input no open wound noted small blanchable area on sacral and coccyx area recommend repositioning , off loading (8) Vomiting: resovled tolerating diet well (9) Hypothyroidism: Continue levothyroxine. (10) DVT prophylaxis: sub q heparin SCDs. Ambulate. (11) Discharge planning issues: PT/OT eval recommends return home with home PT /home health Case Management following. Family Medicine follow-up with Dr. Osman. discussed case and plan of care in detail and at length with patient all questions answered she is agreeable and comfortable with plan of care Subjective ff up for SI joint pain seen with LEATHA Josue at the bedside throughout whole encounter seen resting in bed, not in distress states pain on the SI joint still the same also reports loose stools today denies chest pain, dyspnea, palpitations, dizziness no other symptoms Review of Systems Review of Systems: All systems reviewed & are unremarkable except as noted in HPI & below Physical Exam Physical Exam: General- oriented x 3, not in distress, speaks in sentences with no effort or accessory muscle use Head- atraumatic Eyes- PERRL, EOMI, anicteric ENT- oropharynx clear Neck- supple, no JVD, no adenopathy, no thyromegaly; carotids +2/2, no bruits appreciated Lungs- clear to auscultation bilaterally, no rales/wheezes Heart- normal rate, regular rhythm; no murmur, no gallop, no rub appreciated Abdomen- normal bowel sounds, nondistended, soft, nontender, no masses or hepatosplenomegaly Extremities- no pretibial edema, no calf tenderness; peripheral pulses intact (+) tenderness R SI joint Neuro- alert, oriented x 3; CN 2-12 grossly intact; motor 5/5 bilaterally;sensation 100% on all extremities; no other gross focal neurologic deficits Skin- warm & dry Results & Data Vital Signs (Past 12 Hours) Vital Signs Temp Pulse Resp BP Pulse Ox 01/18/19 15:27 37.0 C 71 20 109/66 93 01/18/19 12:03 37.1 C 76 18 119/70 96 01/18/19 07:15 36.7 C 79 20 122/65 97 01/18/19 04:53 36.8 C 67 18 122/76 97 (1) Vomiting Nausea presence: with nausea Vomiting Intractability: non-intractable Vomiting type: unspecified Qualified Code(s): R11.2 - Nausea with vomiting, unspecified
[2019-01-18] MEDS: methylPREDNISolone 40 MG in SYRINGE 0 ML IV SCH ×2 (17:06→23:13)
[2019-01-18] MEDS: cefTRIAXone SODIUM 1,000 MG in DEXTROSE 5% 50 ML IV SCH (18:49)
[2019-01-18] MEDS: ONDANSETRON INJ 2 MG/ML 2 ML VIAL IV PRN (18:49)
[2019-01-18] MEDS: TOPIRAMATE 100 MG TAB PO SCH (20:55)
[2019-01-19] MEDS: MoRPHine SULFATE 4 MG/ML 1 ML CARP\\VIAL IV PRN ×3 (04:08→13:57)
[2019-01-19] MEDS: LEVOTHYROXINE SODIUM 50 MCG TABLET PO SCH (05:38)
[2019-01-19] MEDS: HEPARIN SOD 5,000 UNIT/0.5 ML VIAL SQ SCH ×3 (05:39→20:42)
[2019-01-19] MEDS: LORazepam 1 MG TAB PO PRN (07:59)
[2019-01-19] MEDS: dilTIAZem ER 120 MG CAPCR PO SCH (07:59)
[2019-01-19] MEDS: lamoTRIgine 100 MG TAB PO SCH ×2 (07:59→20:37)
[2019-01-19] MEDS: GABAPENTIN 600 MG TAB PO SCH ×3 (07:59→20:38)
[2019-01-19] MEDS: methylPREDNISolone 40 MG in SYRINGE 0 ML IV SCH ×2 (07:59→15:39)
[2019-01-19] MEDS: LIDOCAINE 5% 1 PATCH TD SCH (07:59)
[2019-01-19] MEDS: FERROUS SULFATE 325 MG TAB PO SCH ×2 (07:59→20:41)
[2019-01-19] MEDS: LACTOBACILLUS ACIDOPHILUS (FLORANEX) TAB PO SCH ×3 (07:59→17:11)
[2019-01-19] MEDS: POTASSIUM CHLORIDE 20 MEQ TABCR PO SCH (07:59)
[2019-01-19] MEDS: DULOXETINE HCL 60 MG CAP PO SCH (07:59)
[2019-01-19] MEDS: METAXALONE 800 MG TABLET PO SCH ×4 (07:59→20:39)
[2019-01-19] MEDS: ONDANSETRON INJ 2 MG/ML 2 ML VIAL IV PRN ×2 (08:00→15:59)
--- NOTE | 2019-01-19 17:08 | Hospitalist Progress Note ---
Date of Service January 19, 2019 Assessment & Plan (1) Sacroiliac joint disease: Consulted Pain Management recommends out pt follow up not safe for SI joint injection , due to UTI , risk of serious complication of joint infection On day 2 of IV Solumedrol 40 mg every 8 hours, Ice packs Pain gradually improving since yesterday Continue to monitor, plan to taper Solu-Medrol starting tomorrow to every 12 hours Also will touch base with pain management service regarding patient's progress, possible other recommendations Encouraged to use [place] instead of IV morphine, patient was agreeable continue PRN Morphine, [place], usual Tramadol, Gabapentin, [place] continue PT/OT (2) NINOSKA (acute kidney injury): resolved Serum creatinine at time of admission 1.56 compared to baseline of approximately 1.1. Acute kidney injury probably secondary to volume depletion from chronic/persistent diarrhea and poor p.o. fluid intake. Received IV fluids. (3) Hypokalemia: secondary to chronic diarrhea and inadequate oral intake. resolved (4) Urinary tract infection: Urinalysis demonstrated leukocyte esterase, pyuria, bacteriuria. Urine culture: Negative However patient has been taking vancomycin for C. difficile prior to admission Question whether patient is partially treated UTI on empiric Ceftriaxone IV day 4 We will DC IV ceftriaxone and observe (5) Hypertension: Well-controlled, continue losartan. (6) C. difficile diarrhea: Chronic/recurrent C. difficile Fecal transplant in the near future is anticipated. C. difficile PCR was negative a few days ago. Receiving antibiotics for suspected UTI on probiotics No diarrhea today as per patient (7) Pressure injury of sacral region, stage 1: Patient has been relatively immobile because of her back and sacroiliac pain. Avoid pressure/reposition. Wound Care Nursing consulted-appreciate input no open wound noted small blanchable area on sacral and coccyx area recommend repositioning , off loading (8) Hypothyroidism: Continue levothyroxine. (9) DVT prophylaxis: sub q heparin SCDs. Ambulate. (10) Discharge planning issues: PT/OT eval recommends return home with home PT /home health Case Management following. Family Medicine follow-up with Dr. Osman. Again, discussed case and plan of care in detail and at length with patient all questions answered she is agreeable and comfortable with plan of care Subjective Follow-up for low back pain Seen with RN and family at the bedside throughout whole encounter Patient was seen sleeping but easily awakened States back pain is somewhat better today, rates pain as 6 out of 10 versus 8-9 out of 10 the previous days Able to ambulate today to the bathroom with less pain Also reports less bowel movements today, no abdominal pain or nausea No other symptoms Review of Systems Review of Systems: All systems reviewed & are unremarkable except as noted in HPI & below Physical Exam Physical Exam: General- oriented x 3, not in distress, speaks in sentences with no effort or accessory muscle use Eyes- anicteric Neck- no JVD Lungs- clear breath sounds bilaterally Heart- normal rate, regular rhythm; no murmurs Abdomen- normal bowel sounds, nondistended, soft, nontender Back-no erythema, hematoma, warmth, swelling, tenderness Lidoderm patch in place of the right SI joint Extremities- no pretibial edema, no calf tenderness Neuro- alert, oriented x 3; no gross focal neurologic deficits Skin- warm & dry Results & Data Vital Signs (Past 12 Hours) Vital Signs Temp Pulse Resp BP Pulse Ox 01/19/19 14:53 36.7 C 87 20 129/80 95 01/19/19 11:00 36.9 C 92 H 20 122/77 95 01/19/19 07:00 36.8 C 65 20 123/75 94
[2019-01-19] MEDS: ESZOPICLONE 2 MG TABLET PO SCH (20:37)
[2019-01-19] MEDS: HYDROCODONE/ACETAMOPHEN 5/325MG TAB PO PRN (20:37)
[2019-01-19] MEDS: TOPIRAMATE 100 MG TAB PO SCH (20:40)
[2019-01-20] MEDS: methylPREDNISolone 40 MG in SYRINGE 0 ML IV SCH ×3 (01:21→19:34)
[2019-01-20] MEDS: ONDANSETRON INJ 2 MG/ML 2 ML VIAL IV PRN (01:32)
[2019-01-20] MEDS: ALUM HYDROX/MAG TRISILICATE CHEW PO PRN ×5 (02:02→23:25)
[2019-01-20] MEDS: HYOSCYAMINE SULFATE 0.125 MG TAB PO PRN (05:20)
[2019-01-20] MEDS ORDERED: PROMETHAZINE HCL 12.5 MG in SODIUM CHLORIDE 0.9% 50 ML IV PRN (05:20)
[2019-01-20] MEDS: HYDROCODONE/ACETAMOPHEN 5/325MG TAB PO PRN ×2 (05:21→19:35)
[2019-01-20] MEDS ORDERED: POLYETHYLENE (MIRALAX) 17 GM PACK PO PRN (06:04)
[2019-01-20] MEDS: HEPARIN SOD 5,000 UNIT/0.5 ML VIAL SQ SCH ×3 (06:18→21:14)
[2019-01-20] MEDS: LEVOTHYROXINE SODIUM 50 MCG TABLET PO SCH (06:18)
[2019-01-20] MEDS: DOCUSATE SODIUM 100 MG CAP PO SCH (06:23)
[2019-01-20] MEDS: MoRPHine SULFATE 4 MG/ML 1 ML CARP\\VIAL IV PRN ×3 (07:49→23:25)
[2019-01-20] MEDS: LIDOCAINE 5% 1 PATCH TD SCH (07:51)
[2019-01-20] MEDS: FERROUS SULFATE 325 MG TAB PO SCH ×2 (07:51→21:13)
[2019-01-20] MEDS: lamoTRIgine 100 MG TAB PO SCH ×2 (07:52→21:13)
[2019-01-20] MEDS: METAXALONE 800 MG TABLET PO SCH ×4 (07:53→21:13)
[2019-01-20] MEDS: GABAPENTIN 600 MG TAB PO SCH ×3 (07:54→21:13)
[2019-01-20] MEDS: dilTIAZem ER 120 MG CAPCR PO SCH (07:54)
[2019-01-20] MEDS: POTASSIUM CHLORIDE 20 MEQ TABCR PO SCH (07:54)
[2019-01-20] MEDS: LACTOBACILLUS ACIDOPHILUS (FLORANEX) TAB PO SCH ×3 (07:55→16:08)
[2019-01-20] MEDS: DULOXETINE HCL 60 MG CAP PO SCH (07:56)
[2019-01-20] MEDS: ACETAMINOPHEN 325 MG TAB PO PRN (10:13)
--- NOTE | 2019-01-20 14:33 | Hospitalist Progress Note ---
Date of Service January 20, 2019 Assessment & Plan (1) Sacroiliac joint disease: Consulted Pain Management recommends out pt follow up not safe for SI joint injection , due to UTI , risk of serious complication of joint infection Pain increased today as per patient Does report GI upset We will taper IV Solumedrol 40 mg every 12-hour, Ice packs Continue to monitor, plan to taper Solu-Medrol every 12 hours Discussed with pain management, does not recommend SI joint injection at this time, recommend to continue medical management Encouraged to use [place] instead of IV morphine, patient was agreeable continue PRN Morphine, [place], usual Tramadol, Gabapentin, [place] continue PT/OT (2) NINOSKA (acute kidney injury): resolved Serum creatinine at time of admission 1.56 compared to baseline of approximately 1.1. Acute kidney injury probably secondary to volume depletion from chronic/persistent diarrhea and poor p.o. fluid intake. Received IV fluids. (3) Hypokalemia: secondary to chronic diarrhea and inadequate oral intake. resolved (4) Urinary tract infection: Urinalysis demonstrated leukocyte esterase, pyuria, bacteriuria. Urine culture: Negative However patient has been taking vancomycin for C. difficile prior to admission Question whether patient is partially treated UTI Has been given ceftriaxone x4 days Remains without urinary symptoms or fever, continue to monitor (5) Hypertension: Well-controlled, continue losartan. (6) C. difficile diarrhea: Chronic/recurrent C. difficile Fecal transplant in the near future is anticipated. C. difficile PCR was negative a few days ago. Receiving antibiotics for suspected UTI on probiotics No diarrhea today as per patient (7) Pressure injury of sacral region, stage 1: Patient has been relatively immobile because of her back and sacroiliac pain. Avoid pressure/reposition. Wound Care Nursing consulted-appreciate input no open wound noted small blanchable area on sacral and coccyx area recommend repositioning , off loading (8) Hypothyroidism: Continue levothyroxine. (9) DVT prophylaxis: sub q heparin SCDs. Ambulate. (10) Discharge planning issues: PT/OT eval recommends return home with home PT /home health Case Management following. Family Medicine follow-up with Dr. Osman. Again, discussed case and plan of care in detail and at length with patient all questions answered she is agreeable and comfortable with plan of care Subjective Follow-up for SI joint pain Seen resting in bed, not in distress Reports increased SI joint pain today Ambulated in the hallways with PT but had severe pain Also reports some nausea today No diarrhea, no other symptoms Addendum: Patient has been seen with RN Shelby at the bedside throughout whole encounter Review of Systems Review of Systems: All systems reviewed & are unremarkable except as noted in HPI & below Physical Exam Physical Exam: General- oriented x 3, not in distress, speaks in sentences with no effort or accessory muscle use Eyes- anicteric Neck- no JVD Lungs- clear breath sounds bilaterally Heart- normal rate, regular rhythm; no murmurs Abdomen- normal bowel sounds, nondistended, soft, nontender Back-tenderness to the SI joint area Extremities- no pretibial edema, no calf tenderness Neuro- alert, oriented x 3; no gross focal neurologic deficits Skin- warm & dry Results & Data Vital Signs (Past 12 Hours) Vital Signs Temp Pulse Resp BP Pulse Ox 01/20/19 07:32 36.9 C 94 H 18 133/82 94 01/20/19 05:31 36.5 C 67 16 138/83 95
[2019-01-20] MEDS: TOPIRAMATE 100 MG TAB PO SCH (21:13)
[2019-01-20] MEDS: ESZOPICLONE 2 MG TABLET PO SCH (23:25)
[2019-01-21] MEDS: ALUM HYDROX/MAG TRISILICATE CHEW PO PRN (03:30)
[2019-01-21] MEDS: MoRPHine SULFATE 4 MG/ML 1 ML CARP\\VIAL IV PRN ×2 (03:30→22:40)
[2019-01-21] MEDS: ONDANSETRON INJ 2 MG/ML 2 ML VIAL IV PRN (03:30)
[2019-01-21] MEDS: methylPREDNISolone 40 MG in SYRINGE 0 ML IV SCH ×2 (06:05→18:44)
[2019-01-21] MEDS: HEPARIN SOD 5,000 UNIT/0.5 ML VIAL SQ SCH ×3 (06:05→21:28)
[2019-01-21] MEDS: LEVOTHYROXINE SODIUM 50 MCG TABLET PO SCH (06:05)
--- NOTE | 2019-01-21 07:53 | Hospitalist Progress Note ---
Date of Service January 21, 2019 Subjective Patient complaining of severe GERD/GI upset symptoms necessitating multiple doses of prn Gaviscon rx as per RN . AP Uncontrolled GERD Ongoing steroid Rx Initiate Famotidine 20 mg p.o. BID. PPI if GERD uncontrolled by H2 fernando. Will relay to AM provider. Results & Data Vital Signs (Past 12 Hours) Vital Signs Temp Pulse Resp BP Pulse Ox 01/21/19 07:12 36.9 C 59 L 20 124/77 94 01/20/19 23:35 37.0 C 69 20 138/82 96
[2019-01-21] MEDS: lamoTRIgine 100 MG TAB PO SCH ×2 (08:45→21:24)
[2019-01-21] MEDS: GABAPENTIN 600 MG TAB PO SCH ×3 (08:46→21:26)
[2019-01-21] MEDS: DULOXETINE HCL 60 MG CAP PO SCH (08:46)
[2019-01-21] MEDS: POTASSIUM CHLORIDE 20 MEQ TABCR PO SCH (08:47)
[2019-01-21] MEDS: LACTOBACILLUS ACIDOPHILUS (FLORANEX) TAB PO SCH ×3 (08:47→17:13)
[2019-01-21] MEDS: DOCUSATE SODIUM 100 MG CAP PO SCH (08:47)
[2019-01-21] MEDS: dilTIAZem ER 120 MG CAPCR PO SCH (08:48)
[2019-01-21] MEDS: FERROUS SULFATE 325 MG TAB PO SCH ×2 (08:49→21:24)
[2019-01-21] MEDS: METAXALONE 800 MG TABLET PO SCH ×4 (08:49→21:26)
[2019-01-21] MEDS: LIDOCAINE 5% 1 PATCH TD SCH (08:50)
[2019-01-21] MEDS: FAMOTIDINE 20 MG TAB PO SCH ×2 (08:52→21:23)
[2019-01-21] MEDS ORDERED: PANTOprazole 40 MG TAB PO SCH (09:00)
[2019-01-21] MEDS: TRAMADOL HCL 50 MG TABLET PO PRN (12:21)
[2019-01-21] MEDS: HYDROCODONE/ACETAMOPHEN 5/325MG TAB PO PRN ×2 (14:24→21:20)
--- NOTE | 2019-01-21 17:51 | Hospitalist Progress Note ---
Date of Service January 21, 2019 Assessment & Plan (1) Sacroiliac joint disease: Consulted Pain Management recommends out pt follow up not safe for SI joint injection , due to UTI , risk of serious complication of joint infection Pain improving today compared to yesterday Continue IV Solumedrol 40 mg every 12-hour today, plan to taper to daily tomorrow Encouraged to utilize [place] as able, and use IV morphine for severe pain, patient was understanding and agreeable comfortable with this plan continue PT/OT Case management working on transition patient to [facility] (2) NINOSKA (acute kidney injury): resolved Serum creatinine at time of admission 1.56 compared to baseline of approximately 1.1. Acute kidney injury probably secondary to volume depletion from chronic/persistent diarrhea and poor p.o. fluid intake. Received IV fluids. (3) Hypokalemia: secondary to chronic diarrhea and inadequate oral intake. resolved (4) Urinary tract infection: Urinalysis demonstrated leukocyte esterase, pyuria, bacteriuria. Urine culture: Negative However patient has been taking vancomycin for C. difficile prior to admission Question whether patient is partially treated UTI Has been given ceftriaxone x4 days Remains without urinary symptoms or fever, continue to monitor (5) Hypertension: Well-controlled, continue losartan. (6) C. difficile diarrhea: Chronic/recurrent C. difficile Fecal transplant in the near future is anticipated. C. difficile PCR was negative a few days ago. Receiving antibiotics for suspected UTI on probiotics No diarrhea today as per patient (7) Pressure injury of sacral region, stage 1: Patient has been relatively immobile because of her back and sacroiliac pain. Avoid pressure/reposition. Wound Care Nursing consulted-appreciate input no open wound noted small blanchable area on sacral and coccyx area recommend repositioning , off loading (8) Hypothyroidism: Continue levothyroxine. (9) DVT prophylaxis: sub q heparin SCDs. Ambulate. (10) Discharge planning issues: PT/OT jonnathan recommends return home with home PT /home health Case Management following. Family Medicine follow-up with Dr. Osman. Today, discussed case and plan of care in detail and at length with patient all questions answered she is understanding, agreeable and comfortable with plan of care Subjective Follow-up for severe pain secondary to SI joint disease Seen with RN back at the bedside throughout whole encounter Seen resting in bed, comfortable, in good spirits States SI joint pain is improved today compared to yesterday Denies nausea, abdominal pain today No other symptoms Review of Systems Review of Systems: All systems reviewed & are unremarkable except as noted in HPI & below Physical Exam Physical Exam: General- oriented x 3, not in distress, speaks in sentences with no effort or accessory muscle use Eyes- anicteric Neck- no JVD Lungs- clear BS, no crackles or wheezing bilaterally Heart- normal rate, regular rhythm; no murmurs Abdomen- normal bowel sounds, nondistended, soft, nontender Extremities- no pretibial edema, no calf tenderness Lower back-no erythema, warmth, tenderness of the SI joint area Mild erythema at the coccyx region Neuro- alert, oriented x 3; no gross focal neurologic deficits Skin- warm & dry Results & Data Vital Signs (Past 12 Hours) Vital Signs Temp Pulse Resp BP Pulse Ox 01/21/19 14:45 36.7 C 77 20 106/63 97 01/21/19 07:12 36.9 C 59 L 20 124/77 94
[2019-01-21] MEDS: ESZOPICLONE 2 MG TABLET PO SCH (21:25)
[2019-01-21] MEDS: TOPIRAMATE 100 MG TAB PO SCH (21:26)
[2019-01-22] MEDS: MoRPHine SULFATE 4 MG/ML 1 ML CARP\\VIAL IV PRN ×2 (02:34→14:25)
[2019-01-22] MEDS: LEVOTHYROXINE SODIUM 50 MCG TABLET PO SCH (06:29)
[2019-01-22] MEDS: HEPARIN SOD 5,000 UNIT/0.5 ML VIAL SQ SCH ×3 (06:30→22:32)
[2019-01-22] MEDS: methylPREDNISolone 40 MG in SYRINGE 0 ML IV SCH (06:30)
[2019-01-22] MEDS: HYDROCODONE/ACETAMOPHEN 5/325MG TAB PO PRN (06:39)
[2019-01-22] MEDS: LACTOBACILLUS ACIDOPHILUS (FLORANEX) TAB PO SCH ×3 (10:37→17:27)
[2019-01-22] MEDS: dilTIAZem ER 120 MG CAPCR PO SCH (10:37)
[2019-01-22] MEDS: DOCUSATE SODIUM 100 MG CAP PO SCH (10:38)
[2019-01-22] MEDS: POTASSIUM CHLORIDE 20 MEQ TABCR PO SCH (10:38)
[2019-01-22] MEDS: GABAPENTIN 600 MG TAB PO SCH ×3 (10:38→22:27)
[2019-01-22] MEDS: DULOXETINE HCL 60 MG CAP PO SCH (10:38)
[2019-01-22] MEDS: lamoTRIgine 100 MG TAB PO SCH ×2 (10:39→22:28)
[2019-01-22] MEDS: FERROUS SULFATE 325 MG TAB PO SCH ×2 (10:39→22:28)
[2019-01-22] MEDS: METAXALONE 800 MG TABLET PO SCH ×4 (10:40→22:30)
[2019-01-22] MEDS: FAMOTIDINE 20 MG TAB PO SCH ×2 (10:40→22:30)
[2019-01-22] MEDS: LIDOCAINE 5% 1 PATCH TD SCH (10:40)
[2019-01-22] MEDS: TRAMADOL HCL 50 MG TABLET PO PRN (11:00)
--- NOTE | 2019-01-22 17:56 | Hospitalist Progress Note ---
Date of Service January 22, 2019 Assessment & Plan (1) Sacroiliac joint disease: Consulted Pain Management recommends out pt follow up not safe for SI joint injection , due to UTI , risk of serious complication of joint infection Still having breakthrough pain today next ncrease [place] to 10 mg every 6 hours Discontinue Solu-Medrol, prednisone 40 mg p.o. daily tomorrow Encouraged to utilize [place] as able, and use IV morphine for severe pain, patient was understanding and agreeable comfortable with this plan continue PT/OT Case management working on transition [facility] (2) NINOSKA (acute kidney injury): resolved Serum creatinine at time of admission 1.56 compared to baseline of approximately 1.1. Acute kidney injury probably secondary to volume depletion from chronic/persistent diarrhea and poor p.o. fluid intake. Received IV fluids. (3) Hypokalemia: secondary to chronic diarrhea and inadequate oral intake. resolved (4) Urinary tract infection: Urinalysis demonstrated leukocyte esterase, pyuria, bacteriuria. Urine culture: Negative However patient has been taking vancomycin for C. difficile prior to admission Question whether patient is partially treated UTI Has been given ceftriaxone x4 days Remains without urinary symptoms or fever, continue to monitor (5) Hypertension: Well-controlled, continue losartan. (6) C. difficile diarrhea: Chronic/recurrent C. difficile Fecal transplant in the near future is anticipated. C. difficile PCR was negative a few days ago. Receiving antibiotics for suspected UTI on probiotics No diarrhea today as per patient (7) Pressure injury of sacral region, stage 1: Patient has been relatively immobile because of her back and sacroiliac pain. Avoid pressure/reposition. Wound Care Nursing consulted-appreciate input no open wound noted small blanchable area on sacral and coccyx area recommend repositioning , off loading (8) Hypothyroidism: Continue levothyroxine. (9) DVT prophylaxis: sub q heparin SCDs. Ambulate. (10) Discharge planning issues: PT/OT jonnathan recommends return home with home PT /home health Case Management following. Family Medicine follow-up with Dr. Osman. Today, again discussed case and plan of care in detail and at length with patient all questions answered she is understanding, agreeable and comfortable with plan of care Patient expressed gratitude for the care Subjective Follow-up for SI joint disease Seen with ELIANE Chaidez at the bedside throughout whole encounter Sitting up in bed, comfortable, having dinner, asked for permission to interview and evaluate her, and patient gave me permission States she had breakthrough pain again today Patient tried to ambulate in the hallways today, had some discomfort but tolerated it Denies abdominal pain, nausea vomiting, diarrhea No other symptoms Review of Systems Review of Systems: All systems reviewed & are unremarkable except as noted in HPI & below Physical Exam Physical Exam: General- oriented x 3, not in distress, speaks in sentences with no effort or accessory muscle use Eyes- anicteric Neck- no JVD Lungs- clear BS bilaterally, no crackles no wheeze Heart- normal rate, regular rhythm; no murmurs Abdomen- normal bowel sounds, nondistended, soft, nontender Extremities- no pretibial edema, no calf tenderness Back-no edema, warmth, positive moderate tenderness in the SI joint area Neuro- alert, oriented x 3; no gross focal neurologic deficits Skin- warm & dry Results & Data Vital Signs (Past 12 Hours) Vital Signs Temp Pulse Resp BP Pulse Ox 01/22/19 15:54 36.5 C 82 20 133/84 95 01/22/19 07:08 36.8 C 62 18 137/89 97
[2019-01-22] MEDS: TOPIRAMATE 100 MG TAB PO SCH (22:31)
[2019-01-22] MEDS: HYDROCODONE/ACETAMINOPHEN 10/325 TAB PO PRN (22:35)
[2019-01-22] MEDS: ESZOPICLONE 2 MG TABLET PO SCH (23:58)
[2019-01-23] MEDS: MoRPHine SULFATE 4 MG/ML 1 ML CARP\\VIAL IV PRN ×3 (03:26→19:45)
[2019-01-23] MEDS: LEVOTHYROXINE SODIUM 50 MCG TABLET PO SCH (06:11)
[2019-01-23] MEDS: HEPARIN SOD 5,000 UNIT/0.5 ML VIAL SQ SCH ×3 (06:11→21:17)
[2019-01-23] MEDS: HYDROCODONE/ACETAMINOPHEN 10/325 TAB PO PRN (07:43)
[2019-01-23] MEDS: FAMOTIDINE 20 MG TAB PO SCH ×2 (07:45→21:17)
[2019-01-23] MEDS: lamoTRIgine 100 MG TAB PO SCH ×2 (07:46→21:16)
[2019-01-23] MEDS: POTASSIUM CHLORIDE 20 MEQ TABCR PO SCH (07:46)
[2019-01-23] MEDS: FERROUS SULFATE 325 MG TAB PO SCH ×2 (07:47→21:15)
[2019-01-23] MEDS: DULOXETINE HCL 60 MG CAP PO SCH (07:48)
[2019-01-23] MEDS: dilTIAZem ER 120 MG CAPCR PO SCH (07:48)
[2019-01-23] MEDS: METAXALONE 800 MG TABLET PO SCH ×4 (07:48→21:15)
[2019-01-23] MEDS: GABAPENTIN 600 MG TAB PO SCH ×3 (07:49→21:15)
[2019-01-23] MEDS: LACTOBACILLUS ACIDOPHILUS (FLORANEX) TAB PO SCH ×3 (07:49→17:04)
[2019-01-23] MEDS: DOCUSATE SODIUM 100 MG CAP PO SCH (07:50)
[2019-01-23] MEDS: LIDOCAINE 5% 1 PATCH TD SCH (07:50)
[2019-01-23] MEDS ORDERED: predniSONE 20 MG TAB PO SCH (09:00)
[2019-01-23] MEDS: TRAMADOL HCL 50 MG TABLET PO PRN (11:52)
--- NOTE | 2019-01-23 19:32 | Hospitalist Progress Note ---
Date of Service January 23, 2019 Assessment & Plan (1) Sacroiliac joint disease: Consulted Pain Management recommends out pt follow up not safe for SI joint injection , due to UTI , risk of serious complication of joint infection increased [place] to 10 mg every 6 hours Received Solu-Medrol 40 mg daily hours, then tapered back to prednisone Still having significant pain, breakthrough pain requiring IV morphine, especially with movement, standing and ambulation Discussed case with pain management, requested reevaluation Discussed case with case management[facility] ([facility]) NINOSKA (acute kidney injury): resolved Serum creatinine at time of admission 1.56 compared to baseline of approximately 1.1. Acute kidney injury probably secondary to volume depletion from chronic/persistent diarrhea and poor p.o. fluid intake. Received IV fluids. (3) Hypokalemia: secondary to chronic diarrhea and inadequate oral intake. resolved (4) Urinary tract infection: Urinalysis demonstrated leukocyte esterase, pyuria, bacteriuria. Urine culture: Negative However patient has been taking vancomycin for C. difficile prior to admission Question whether patient is partially treated UTI Has been given ceftriaxone x4 days Remains without urinary symptoms or fever, continue to monitor (5) Hypertension: Well-controlled, continue losartan. (6) C. difficile diarrhea: Chronic/recurrent C. difficile Fecal transplant in the near future is anticipated. C. difficile PCR was negative a few days ago. Receiving antibiotics for suspected UTI on probiotics No diarrhea for the past few days (7) Pressure injury of sacral region, stage 1: Patient has been relatively immobile because of her back and sacroiliac pain. Avoid pressure/reposition. Wound Care Nursing consulted-appreciate input no open wound noted small blanchable area on sacral and coccyx area recommend repositioning , off loading (8) Hypothyroidism: Continue levothyroxine. (9) DVT prophylaxis: sub q heparin SCDs. Encouraged to ambulate. (10) [facility]charge planning issues: [facility], again discussed case and plan of care in detail and at length with patient all questions answered she is understanding, agreeable and comfortable with plan of care Patient expressed gratitude for the care Subjective Follow-up for sacroiliac joint disease Seen with LEATHA Milton at the bedside throughout whole encounter Patient seen resting in bed, not in distress Still reports significant pain on the SI joint, worse with standing and ambulating Denies paresthesias, leg weakness Denies nausea, abdominal pain, diarrhea No dizziness, shortness of breath, chest pain No other symptoms Review of Systems Review of Systems: All systems reviewed & are unremarkable except as noted in HPI & below Physical Exam Physical Exam: General- oriented x 3, not in distress, speaks in sentences with no effort or accessory muscle use Eyes- anicteric Neck- no JVD Lungs-clear presence, no crackles, bilaterally Heart- normal rate, regular rhythm; no murmurs Abdomen- normal bowel sounds, nondistended, soft, nontender Back-positive tenderness on the SI joint area, no erythema, warmth, hematoma, rashes Extremities-trace pretibial edema, no calf tenderness Neuro- alert, oriented x 3; no gross focal neurologic deficits Skin- warm & dry Results & Data Vital Signs (Past 12 Hours) Vital Signs Temp Pulse Resp BP Pulse Ox 01/23/19 15:05 37.1 C 80 18 113/69 95
[2019-01-23] MEDS: ESZOPICLONE 2 MG TABLET PO SCH (21:14)
[2019-01-23] MEDS: TOPIRAMATE 100 MG TAB PO SCH (21:17)
[2019-01-24] MEDS: LEVOTHYROXINE SODIUM 50 MCG TABLET PO SCH (05:35)
[2019-01-24] MEDS: ACETAMINOPHEN 325 MG TAB PO PRN ×3 (05:35→22:45)
[2019-01-24] MEDS: HEPARIN SOD 5,000 UNIT/0.5 ML VIAL SQ SCH ×3 (05:36→21:39)
[2019-01-24] MEDS ORDERED: LACTATED RINGER'S 1,000 ML IV ONE (06:22)
[2019-01-24 07:00] LABS: Albumin Level 2.8 gm/dl (3.4-5.0); BUN Creatinine Ratio 19.5 (10-20); Creatinine Clr Calc Pharmacy 50.7 ml/min; Est GFR (African American) 59.5; Est GFR (Non-African American) 51.3; Potassium 3.7 mmol/L (3.5-5.1)
[2019-01-24 07:03] LABS: Albumin Globulin Ratio 0.9 (0.9-2); Bilirubin,Total 0.3 mg/dl (0.2-1); Globulin 3.1 gm/dl (2.5-4.0); Total Protein 5.9 gm/dl (6.4-8.2)
--- NOTE | 2019-01-24 07:07 | XRay Report ---
XR chest 1V portable CLINICAL HISTORY: 63 years-old Female presenting with fever. TECHNIQUE: Portable upright AP view of the chest was obtained. COMPARISON: 01/15/2019. FINDINGS: The patient is artery are rotated. Allowing for this, the cardiomediastinal silhouette is normal. Mil dly low lung volumes. Bandlike opacity in the left midlung new from prior. No other focal opacity. No large effusion or pneumothorax. Degenerative changes of the thoracic spine. Osteopenia may be presen t. Thoracolumbar fusion hardware. Degenerative changes of the left glenohumeral joint. Upper abdomen normal. IMPRESSION: 1. Bandlike opacity in the left midlung likely atelectasis in the setting of mildly low lung volumes . 2. No focal infiltrate to suggest pneumonia. Electronically signed by: Douglas Griffith M.D. 01/24/2019 7:06 AM
[2019-01-24 07:31] LABS: Basophils # (auto) 0.01 K/uL (0-0.2); Basophils % (auto) 0.1 %; Eosinophils # (auto) 0.02 K/uL (0-0.5); Eosinophils % (auto) 0.2 %; Hematocrit (blood only) 36.3 % (37-47); Hemoglobin 12.5 g/dL (12.0-16.0); Immature Granulocytes # (auto) 0.23 K/uL (0.00-0.02); Immature Granulocytes % (auto) 1.9 %; Lymphocytes # (auto) 1.11 K/uL (1.2-3.4); Lymphocytes % (auto) 8.9 %; Mean Corpuscular Hgb Conc 34.4 g/dL (32-36); Mean Corpuscular Volume 93.1 fL (80-100); Mean Platelet Volume 8.9 fL (7.4-10.4); Monocytes # (auto) 1.18 K/uL (0.11-0.59); Monocytes % (auto) 9.5 %; Neutrophils # (auto) 9.86 K/uL (1.4-6.5); Neutrophils % (auto) 79.4 %; Nucleated RBC # (auto) 0.02 K/uL (0-0); Nucleated RBC % (auto) 0.1 %; Platelet Count 136 K/uL (130-400); RDW Coefficient of Variation 13.3 % (11.5-14.5); RDW Standard Deviation 44.9 fL (36.4-46.3); White Blood Count 12.41 K/uL (4.8-10.8)
[2019-01-24] MEDS: DOCUSATE SODIUM 100 MG CAP PO SCH (07:46)
[2019-01-24] MEDS: LIDOCAINE 5% 1 PATCH TD SCH (07:55)
[2019-01-24] MEDS: LACTOBACILLUS ACIDOPHILUS (FLORANEX) TAB PO SCH ×3 (08:15→16:08)
[2019-01-24] MEDS: FAMOTIDINE 20 MG TAB PO SCH ×2 (08:16→19:38)
[2019-01-24] MEDS: dilTIAZem ER 120 MG CAPCR PO SCH (08:16)
[2019-01-24] MEDS: lamoTRIgine 100 MG TAB PO SCH ×2 (08:17→21:40)
[2019-01-24] MEDS: POTASSIUM CHLORIDE 20 MEQ TABCR PO SCH (08:17)
[2019-01-24] MEDS: METAXALONE 800 MG TABLET PO SCH ×4 (08:18→21:43)
[2019-01-24] MEDS: GABAPENTIN 600 MG TAB PO SCH ×3 (08:18→21:43)
[2019-01-24] MEDS: FERROUS SULFATE 325 MG TAB PO SCH ×2 (08:18→21:41)
[2019-01-24] MEDS: DULOXETINE HCL 60 MG CAP PO SCH (08:18)
[2019-01-24] MEDS: HYDROCODONE/ACETAMINOPHEN 10/325 TAB PO PRN (08:27)
[2019-01-24] MEDS ORDERED: predniSONE 10 MG TABLET PO SCH (09:00)
[2019-01-24] MEDS ORDERED: TAPENTADOL HCL 50 MG TAB PO PRN (09:36)
--- NOTE | 2019-01-24 09:36 | Pain Management Progress Note ---
Date of Service January 24, 2019 Assessment & Plan (1) Sacroiliac joint disease: 1. Recommend discontinuation of hydrocodone and tramadol 2. Will initiate Nucynta 50 mg every 6 hours PRN for breakthrough pain. Side effects versus benefits were discussed at length with the patient. All of her questions were answered. 3. Limit utilization of IV morphine. Should patient tolerate Nucynta with efficacy would recommend discontinuing IV morphine within the next 24 hours. 4. Patient remains a poor candidate for any interventional treatment due to UTI and antibiotic treatment Present on Admission?: Yes (2) Urinary tract infection: Present on Admission?: Yes Subjective Mrs. Odom is a 63-year-old white female who has persistent complaints of pain in the right lumbosacral region with some radiation towards the lateral hip. SI joint etiology has been considered but the patient is a poor candidate for interventional treatment due to concurrent urinary tract infection. Patient also had fever last evening and diarrhea and is being further worked up at this time per hospitalist team. Patient has continued to rely on IV morphine during this admission for pain control reporting poor efficacy from tramadol and hydrocodone. Hospitalist has requested reevaluation by pain service for recommendations. The patient denies change in location or characteristic of her pain. She continues to deny radicular pattern to pain complaints. Her pain rem ains sharp and achy in the right lumbosacral region without a radicular pattern aggravated with positional change, standing and ambulatory activities. Patient denies any bowel or bladder incontinence or saddle anesthesias. She has no new neurologic or further constitutional complaints at this time. Plan of care discussed with Dr. Debo Hewitt. Pain Assessment Pain Assessment Full Body Front + Back: 1. Right lumbosacral region Pain scale - at its best (0-10): 4 Pain scale - at its worst (0-10): 8 Physical Exam Physical Exam: General: Patient lying quietly in exam room crying upon entering. Mood and affect was appropriate. The patient was frequently swearing throughout the visit, but not directed at provider. Lumbar spine: Examination was deferred. Neurologic: Cranial nerves grossly intact. Ambulation not witnessed.
[2019-01-24 10:59] LABS: Appearance Urine Clear (Clear); Bilirubin Urine Negative (Negative); Blood Urine Negative (Negative); Color Urine Yellow; Glucose Urine UA Negative (Negative); Ketones Urine Negative (Negative); Leukocyte Esterase Urine Negative (Negative); Nitrite Urine Negative (Negative); Protein Urine Negative (Negative); Specific Gravity Urine 1.015 (1.000-1.030); Urobilinogen Urine Negative (Negative); pH Urine 5.5 (4.5-7.5)
[2019-01-24] MEDS ORDERED: LORazepam 0.5 MG TAB PO PRN (13:37)
[2019-01-24] MEDS: MoRPHine SULFATE 4 MG/ML 1 ML CARP\\VIAL IV PRN ×2 (15:04→19:28)
--- NOTE | 2019-01-24 15:36 | Hospitalist Progress Note ---
Date of Service January 24, 2019 Assessment & Plan (1) Fever: Spiked fevers overnight Positive diarrhea Will need to rule out C. difficile recurrence, stools for C. difficile Check urinalysis, urine cultures to rule out UTI Check lumbar spine MRI to rule out discitis Check chest x-ray If stool for C. difficile negative we will cover with cefepime IV empirically Monitor closely (2) Sacroiliac joint disease: Consulted Pain Management recommends out pt follow up not safe for SI joint injection , due to UTI , risk of serious complication of joint infection increased [place] to 10 mg every 6 hours Received Solu-Medrol 40 mg daily hours, then tapered back to prednisone Still having significant pain, breakthrough pain requiring IV morphine, especially with movement, standing and ambulation Discussed case with pain management, requested reevaluation Recommend Nucynta every 6 hours, [place] discontinued Patient encouraged to use Nucynta, avoid IV morphine as much as possible in preparation for transition to rehab Discussed case with case management, referrals to [facility] in progress (3) NINOSKA (acute kidney injury): resolved Serum creatinine at time of admission 1.56 compared to baseline of approximately 1.1. Acute kidney injury probably secondary to volume depletion from chronic/persistent diarrhea and poor p.o. fluid intake. Received IV fluids. (4) Hypokalemia: secondary to chronic diarrhea and inadequate oral intake. resolved (5) Urinary tract infection: Urinalysis demonstrated leukocyte esterase, pyuria, bacteriuria. Urine culture: Negative However patient has been taking vancomycin for C. difficile prior to admission Question whether patient is partially treated UTI Has been given ceftriaxone x4 days Positive fever overnight, management plan #1 (6) Hypertension: Well-controlled, continue losartan. (7) C. difficile diarrhea: Chronic/recurrent C. difficile Fecal transplant in the near future is anticipated. C. difficile PCR was negative a few days ago. Receiving antibiotics for suspected UTI on probiotics No diarrhea for the past few days Positive fever and diarrhea, management per (8) Pressure injury of sacral region, stage 1: Patient has been relatively immobile because of her back and sacroiliac pain. Avoid pressure/reposition. Wound Care Nursing consulted-appreciate input no open wound noted small blanchable area on sacral and coccyx area recommend repositioning , off loading (9) Hypothyroidism: Continue levothyroxine. (10) DVT prophylaxis: sub q heparin SCDs. Encouraged to ambulate. Disposition Evaluation management for fever in progress Pain management also brings Referrals to [facility] pending RN message in the afternoon to evaluate patient as she was crying Seen at the bedside, patient is calmer For an update regarding urinalysis results Advised that I will check her C. difficile stool test, MRI of the lumbar spine If C. difficile is negative, will have to cover empirically with IV cefepime until cultures are negative and infection has been ruled out Case discussed in detail at length with patient I listened to her concerns, tried my best to address the concerns She is understanding, comfortable, agreeable plan of care She expressed gratitude for the care (11) Discharge planning issues: Referrals to [facility] in progress Today, again discussed case and plan of care in detail and at length with patient all questions answered she is understanding, agreeable and comfortable with plan of care Patient expressed gratitude for the care Subjective Follow-up for SI joint disease Developed fever overnight Seen with LEATHA Milton at the bedside throughout whole encounter Reports not feeling good today, still having SI joint pain, worse with movement Also having loose bowel movements, hematochezia Has some occasional crampy abdominal pain Some mild dysuria Denies chest pain, shortness of breath, cough, dizziness no palpitations Review of Systems Review of Systems: All systems reviewed & are unremarkable except as noted in HPI & below Physical Exam Physical Exam: General- oriented x 3, not in distress, speaks in sentences with no effort or accessory muscle use Eyes- anicteric Neck- no JVD Lungs- clear BS bilaterally, no wheezing, no crackles heard on auscultation Heart- normal rate, regular rhythm; no murmurs Abdomen- normal bowel sounds, nondistended, soft, nontender Extremities- no pretibial edema, no calf tenderness Back-positive mild to moderate tenderness, no erythema/warmth Neuro- alert, oriented x 3; no gross focal neurologic deficits Skin- warm & dry Results & Data Vital Signs (Past 12 Hours) Vital Signs Temp Pulse Resp BP Pulse Ox 01/24/19 14:48 38 C H 91 H 20 119/73 95 01/24/19 07:29 37.1 C 104 H 18 104/62 94 01/24/19 06:12 38.3 C H 01/24/19 05:35 37.9 C H Laboratory Results Laboratory Results - last 24 hr 01/24/19 01/24/19 01/24/19 06:27 06:35 06:35 WBC 12.41 H RBC 3.90 L Hgb 12.5 Hct 36.3 L MCV 93.1 MCH 32.1 MCHC 34.4 RDW Std Deviation 44.9 RDW Coeff of [place] 13.3 Plt Count 136 MPV 8.9 Immature Gran % (Auto) 1.9 Neut % (Auto) 79.4 Lymph % (Auto) 8.9 Lea % (Auto) 9.5 Eos % (Auto) 0.2 Baso % (Auto) 0.1 Immature Gran # (Auto) 0.23 H Neut # (Auto) 9.86 H Lymph # (Auto) 1.11 L [place] # (Auto) 1.18 H Eos # (Auto) 0.02 Baso # (Auto) 0.01 Absolute Nucleated RBC 0.02 H Nucleated RBC % (auto) 0.1 Sodium 136 Potassium 3.7 Chloride 105 Carbon Dioxide 25 Anion Gap 6.0 BUN 22 H Creatinine 1.13 Est Cr Clr Drug Dosing 50.7 Est GFR ( Amer) 59.5 Est GFR (Non-Af Amer) 51.3 BUN/Creatinine Ratio 19.5 Glucose 106 H Lactate 1.2 Calcium 9.0 Magnesium Total Bilirubin 0.3 AST 8 L ALT 20 Alkaline Phosphatase 46 Total Protein 5.9 L Albumin 2.8 L Globulin 3.1 Albumin/Globulin Ratio 0.9 Procalcitonin Urine Color Urine Appearance Urine pH Ur Specific [place] Urine Protein Urine Glucose (UA) Urine Ketones Urine Blood Urine Nitrite Urine Bilirubin Urine Urobilinogen Ur Leukocyte Esterase 01/24/19 01/24/19 01/24/19 06:35 06:35 10:44 WBC RBC Hgb Hct MCV MCH MCHC RDW Std Deviation RDW Coeff of [place] Plt Count MPV Immature Gran % (Auto) Neut % (Auto) Lymph % (Auto) Le[place] % (Auto) Eos % (Auto) Baso % (Auto) Immature Gran # (Auto) Neut # (Auto) Lymph # (Auto) Lea # (Auto) Eos # (Auto) Baso # (Auto) Absolute Nucleated RBC Nucleated RBC % (auto) Sodium Potassium Chloride Carbon Dioxide Anion Gap BUN Creatinine Est Cr Clr Drug Dosing Est GFR ( Amer) Est GFR (Non-Af Amer) BUN/Creatinine Ratio Glucose Lactate Calcium Magnesium 2.3 Total Bilirubin AST ALT Alkaline Phosphatase Total Protein Albumin Globulin Albumin/Globulin Ratio Procalcitonin 0.60 H Urine Color Yellow Urine Appearance Clear Urine pH 5.5 Ur Specific [place] 1.015 Urine Protein Negative Urine Glucose (UA) Negative Urine Ketones Negative Urine Blood Negative Urine Nitrite Negative Urine Bilirubin Negative Urine Urobilinogen Negative Ur Leukocyte Esterase Negative
[2019-01-24] MEDS: HYOSCYAMINE SULFATE 0.125 MG TAB PO PRN ×2 (17:25→22:14)
[2019-01-24 18:02] LABS: Cdiff Antigen Positive
[2019-01-24 18:03] LABS: Cdiff Toxin A+B Positive Cdiff Toxin (Negative)
[2019-01-24] MEDS: ESZOPICLONE 2 MG TABLET PO SCH (21:38)
[2019-01-24] MEDS: TOPIRAMATE 100 MG TAB PO SCH (21:42)
[2019-01-24] MEDS: ALUM HYDROX/MAG TRISILICATE CHEW PO PRN (22:45)
--- NOTE | 2019-01-24 23:22 | Magnetic Resonance Report ---
MR lumbar spine wo con CLINICAL HISTORY: 63 years-old Female with r/o discitis. Chronic low back pain with history of prior lumbar surgery. Acute right leg pain and weakness with difficulty ambulating. Clinical concern for d iscitis/osteomyelitis. COMPARISON: Lumbar spine MRI 05/26/2017 and also 12/22/2018 from outside hospital. TECHNIQUE: Multiplanar, multi sequence MRI of the lumbar spine was performed without intravenous cont rast. FINDINGS: Motion degraded exam. Artifact from the hardware also limits the body. Binman localizer images demonst rate no gross extraspinal abnormality. Posterior interbody rosalia and screw fusion changes are redemonst rated extending through T10-L5 with laminectomy changes noted at L1-L5. No acute fracture, subluxatio n or focal marrow edema. No endplate erosive changes to suggest scarring/osteomyelitis. Multilevel di sc space narrowing with spondylitic spurring and facet arthrosis. Edema of the paraspinal musculature may be on a postsurgical basis. Additionally, there is moderate atrophy of the paraspinal musculatur e. T12-L1: Posterior spondylitic spurring with facet arthrosis redemonstrated. Flattening of the ventra l thecal sac without significant central canal or foraminal narrowing identified. L1-L2: Facet arthrosis. No central canal or foraminal narrowing identified. L2-L3: Facet arthrosis with mild spondylitic spurring. No central canal or foraminal narrowing ident ified. L3-L4: 4 mm anterolisthesis, unchanged. Mild spondylitic spurring with facet arthrosis. No central c anal or foraminal narrowing identified. L4-L5: Moderate disc space narrowing with spondylitic spurring and small posterior annular disc bulg e with severe facet arthrosis. Moderate right and mild left foraminal narrowing. Central canal appear s patent. L5-S1: Mild spondylitic spurring with posterior annular disc bulge with severe facet arthrosis with bilateral facet effusions. Ligamentum flavum thickening. Mild central canal with mild right lateral r ecess, mild to moderate left lateral recess and mild bilateral foraminal narrowing. IMPRESSION: 1. Extensive posterior interbody rosalia and screw fusion redemonstrated extending from T10-L5 with artif act from the hardware limiting the study. 2. No acute fracture, subluxation, focal bone marrow edema or evidence of acute discitis/osteomyeliti s. 3. Multilevel facet arthrosis with ligamentum flavum thickening and spondylitic spurring as above. No high-grade central canal or foraminal narrowing. The above report was generated using voice recognition software. It may contain grammatical, syntax o r spelling errors. Electronically signed by: Lamin Joy M.D. 01/24/2019 11:20 PM
[2019-01-25] MEDS: RASPBERRY SYRUP 5 ML UDP PO SCH ×2 (00:38→06:11)
[2019-01-25] MEDS: VANCOMYCIN HCL 125 MG/2.5ML SOLN PO SCH ×2 (00:38→06:11)
[2019-01-25] MEDS: MoRPHine SULFATE 4 MG/ML 1 ML CARP\\VIAL IV PRN ×5 (00:49→21:31)
[2019-01-25] MEDS: LEVOTHYROXINE SODIUM 50 MCG TABLET PO SCH (06:11)
[2019-01-25] MEDS: HEPARIN SOD 5,000 UNIT/0.5 ML VIAL SQ SCH ×3 (06:12→21:31)
[2019-01-25] MEDS: ACETAMINOPHEN 325 MG TAB PO PRN (08:36)
[2019-01-25] MEDS: lamoTRIgine 100 MG TAB PO SCH ×2 (08:39→21:30)
[2019-01-25] MEDS: HYOSCYAMINE SULFATE 0.125 MG TAB PO PRN ×2 (08:40→16:41)
[2019-01-25] MEDS: METAXALONE 800 MG TABLET PO SCH ×4 (08:40→21:26)
[2019-01-25] MEDS: LACTOBACILLUS ACIDOPHILUS (FLORANEX) TAB PO SCH ×3 (08:41→16:35)
[2019-01-25] MEDS: FERROUS SULFATE 325 MG TAB PO SCH ×2 (08:42→21:28)
[2019-01-25] MEDS: dilTIAZem ER 120 MG CAPCR PO SCH (08:42)
[2019-01-25] MEDS: DULOXETINE HCL 60 MG CAP PO SCH (08:44)
[2019-01-25] MEDS: POTASSIUM CHLORIDE 20 MEQ TABCR PO SCH (08:44)
[2019-01-25] MEDS: DOCUSATE SODIUM 100 MG CAP PO SCH (08:44)
[2019-01-25] MEDS: GABAPENTIN 600 MG TAB PO SCH ×3 (08:45→21:27)
[2019-01-25] MEDS: LIDOCAINE 5% 1 PATCH TD SCH (08:45)
[2019-01-25] MEDS: FAMOTIDINE 20 MG TAB PO SCH ×2 (08:46→21:28)
[2019-01-25] MEDS ORDERED: predniSONE 10 MG TABLET PO SCH (09:00)
--- NOTE | 2019-01-25 10:28 | Hospitalist Progress Note ---
Date of Service January 25, 2019 Assessment & Plan (1) Fever: Recurrent Clostridium difficile infection -Patient had fever during hospital stay on 01/24/19 and found to have recurrent C.difficile infection as the stool was both PCR and toxin negative was started on oral Vancomycin QID on 01/24/19, continue -as per discussions with Gastronenterology service, this is at least a 3rd episode of C.difficile -patient has a planned outpatient colonoscopy, and consideration should be made for fecal stool transplant -will ask ID consult for evaluation if candidate for DIFICID (fidaxomicin) (2) Sacroiliac joint disease: -Patient with history of Fibromyalgia and sacroiliac joint disease -A review of PDMP of TRAMADOL HCL 50 MG TABLET 30 day supply was filled as outpatient on 12/30/18 -MRI 01/24/19 did not find evidence of infection (1. Extensive posterior interbody rosalia and screw fusion redemonstrated extending from T10-L5 with artifact from the hardware limiting the study. 2. No acute fracture, subluxation, focal bone marrow edema or evidence of acute discitis/osteomyelitis. 3. Multilevel facet arthrosis with ligamentum flavum thickening and spondylitic spurring as above. No high-grade central canal or foraminal narrowing.) -during the hospital stay, patient had [place] 10 mg q6 hours and solumedrol without significant subjective improvements by the patient breakthrough pain requiring IV morphine -Pain management consult Recommend Nucynta every 6 hours, [place] discontinued -however as of evaluation on 01/25/19, patient has been declining Nucynta - will resume home dose tramadol prn as 100 mg q6 hour so that there is some long acting pain medication; continue current gabapentin, duloxetine, metaxalone (3) NINOSKA (acute kidney injury): -Serum creatinine at time of admission 1.56 compared to baseline of a pproximately 1.1. -Acute kidney injury probably secondary to volume depletion from chronic/persistent diarrhea and poor p.o. fluid intake -NINOSKA resolved with IV fluids on this admission (4) Hypokalemia: -secondary to chronic diarrhea and inadequate oral intake. -Hypokalemia is resolved- (5) Urinary tract infection: -Admission Urinalysis demonstrated leukocyte esterase, pyuria, bacteriuria. -patient has completed 4 day course of ceftriaxone on this hospital stay (6) Hypertension: -continue losartan. (7) C. difficile diarrhea: Recurrent Clostridium difficile infection -Patient had fever during hospital stay on 01/24/19 and found to have recurrent C.difficile infection as the stool was both PCR and toxin negative was started on oral Vancomycin QID on 01/24/19, continue -as per discussions with Gastronenterology service, this is at least a 3rd episode of C.difficile -patient has a planned outpatient colonoscopy, and consideration should be made for fecal stool transplant -will ask ID consult for evaluation if candidate for DIFICID (fidaxomicin (8) Pressure injury of sacral region, stage 1: -Patient has been relatively immobile because of her back and sacroiliac pain. -Avoid pressure/reposition. -recommend repositioning , off loading (9) Hypothyroidism: -Continue levothyroxine. (10) DVT prophylaxis: sub q heparin SCDs. Encouraged to ambulate. (11) Discharge planning issues: Referrals to [facility] in progress Subjective Patient with labile affect. During discussion, patient expressed concerns about pain control. She expressed that pain of back not well controlled and refers to fibromyalgia pain. She did not seem to be in acute pain distress but is very unhappy. She declined Nucynta. There remains the morphine 4 mg IV q4 hour prn as the sole narcotic pain medication. Tramadol was stopped on this hospital stay. A review of PDMP of TRAMADOL HCL 50 MG TABLET 30 day supply was filled as outpatient on 12/30/18. Physical Exam Constitutional: + thin ENMT: external ear and nose normal, oropharynx normal Respiratory: normal respiratory effort, lungs clear to auscultation Cardiovascular: Rate/Rhythm: regular rate and regular rhythm Gastrointestinal (Abdomen): normal bowel sounds, soft, nontender, no hepatosplenomegaly Musculoskeletal: Head/Neck/Chest: normocephalic and head atraumatic Neurologic: PERRL, EOMI, accommodation nl, no face palsy, no dysarthria Psychiatric: Affect: + labile affect Results & Data Vital Signs (Past 12 Hours) Vital Signs Temp Pulse Resp BP Pulse Ox 01/25/19 06:42 36.9 C 72 18 104/75 97 01/25/19 00:40 36.7 C 01/24/19 23:21 37.8 C H 96 H 20 137/84 95
--- NOTE | 2019-01-25 11:28 | Infectious Disease Consult ---
Date of Consultation January 25, 2019 Assessment & Plan (1) Recurrent Clostridioides difficile diarrhea: agree with dificid x 10 days. Discussed with patient that I agree with fecal transplant. Further arrangements for this will be deferred to GI as she has established care with GI as an outpatient prior to admission. No further abx indicated for gnr in urine, suspect contamination and not uti. no further ID recs at this time. History of Present Illness Attending Physician: Sesar Duran MD pt admitted with back pain, awaiting SI joint injection. has h/o c diff, follows regularly with [facility] and has been on prolonged vanco via GI. Had negative c diff testing upon admission, maintained on vanco. States she is scheduled for fecal transplant on 02/02 with [facility]. UA abnormal in ER but patient with no gu symptoms, denies dysuria, hematuria, frequency, urgency. had been afebrile this admission until 01/24 - tmax 38.3, c diff testing repeated due to new onset diarrhea and was + for c. diff. Dificid to be given, ID consulted for abx approval. Currently pt is comfortable, pain controlled currently but overall she is having ongoing pain, pain management following. Denies cp, sob, cough, kothari. no n/v/d. poor appetite, now on clear liquids since C. diff +, some cramping lower abd pain, but improving, no diarrhea today, overall better. no gu symptoms. Urince culture on 01/15 grew 2 gnr, 1,000, 5,000 colonies, no further ID done. was on 4 day course of ctx for uti this admission, now stopped. wbc 12 today. MRI spine negative for osteo. Allergies Allergy/AdvReac Type Severity Reaction Status Date / Time cyclobenzaprine Allergy Intermediate RASH AND Verified 01/15/19 17:16 SWELLING fentanyl Allergy Intermediate MAJOR FEET Verified 01/15/19 17:16 SWELLING ketorolac [From Toradol] Allergy Unknown SEE COMMENT Verified 01/15/19 17:16 oxcarbazepine Allergy Unknown UNKNOWN - Verified 01/15/19 17:16 PT DOESN'T REMEMBER risperidone AdvReac Intermediate exhaustion Verified 01/15/19 17:16 clonazepam AdvReac Mild nausea Verified 01/15/19 17:16 Home Medications Home Medications Medication Instructions Recorded Confirmed Type acetaminophen [Tylenol Extra 1,000 mg PO Q4 PRN 01/31/19 06/30/19 History Strength] albuterol sulfate 1 puff INHALATION QID PRN 08/18/18 01/15/19 History diclofenac sodium 1 applic TOPICAL QID 08/18/18 01/15/19 History duloxetine [Cymbalta] 120 mg PO DAILY 08/18/18 01/15/19 History eszopiclone 2 mg PO HS 08/18/18 01/15/19 History ferrous sulfate 325 mg PO BID 08/18/18 01/15/19 History gabapentin 1,200 mg PO TID 08/18/18 01/15/19 History lamotrigine [Lamictal] 150 mg PO BID 08/18/18 01/15/19 History levothyroxine [Levoxyl] 50 mcg PO DAILY 08/18/18 01/15/19 History losartan 100 mg PO DAILY 08/18/18 01/15/19 History metaxalone 800 mg PO QID 08/18/18 01/15/19 History omeprazole 20 mg PO BID 08/18/18 01/15/19 History potassium chloride [Klor-Con M20] 20 meq PO DAILY 08/18/18 01/15/19 History prednisone 5 mg PO DAILY 08/18/18 01/15/19 History topiramate [Topamax] 100 mg PO QPM 08/18/18 01/15/19 History tramadol 100 mg PO Q6 PRN 08/18/18 01/15/19 History chlorthalidone 25 mg PO DAILY 01/15/19 01/15/19 History diltiazem HCl 120 mg PO DAILY 01/15/19 01/15/19 History hyoscyamine sulfate 0.125 mg PO Q4 PRN 01/15/19 01/15/19 History lorazepam 1 mg PO Q12H PRN 01/15/19 01/15/19 History meloxicam 15 mg PO DAILY PRN 01/15/19 01/15/19 History ondansetron HCl [Zofran] 8 mg PO Q8 PRN 01/15/19 01/15/19 History topiramate [Topamax] 50 mg PO HS 01/15/19 01/16/19 History Patient History Medical History Hypothyroid (Chronic) CKD (chronic kidney disease), stage III Recurrent Clostridioides difficile diarrhea IBS (irritable bowel syndrome) Hypothyroidism (Chronic) Hypertension (Chronic) Pressure injury of sacral region, stage 1 (Chronic) C. 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 Beliefs That Will Affect Care: None marital status: / Current Living Situation: Alone current occupational status: retired Feels Safe at Home: Yes Smoking Status: Former smoker Hx Alcohol Use: No Hx Substance Use: No Review of Systems Review of Systems: All systems reviewed & are unremarkable except as noted in HPI & below Physical Exam Constitutional: WD/WN, vitals as above Eyes: PERRL, conjunctivae normal, anicteric sclerae ENMT: external ear and nose normal, oropharynx normal Neck: normal visual inspection Respiratory: normal respiratory effort, lungs clear to auscultation Cardiovascular: RRR, no murmur, no edema Gastrointestinal (Abdomen): normal bowel sounds, soft, nontender, no hepatosplenomegaly Musculoskeletal: no cyanosis or clubbing, extremities motor strength 5/5 Skin: no rashes, warm and dry Psychiatric: A+Ox3, euthymic affect Results & Data Vital Signs (Past 12 Hours) Vital Signs Temp Pulse Resp BP Pulse Ox 01/25/19 06:42 36.9 C 72 18 104/75 97 01/25/19 00:40 36.7 C Laboratory Results Microbiology 01/24/19 06:27 Blood Aerobic Blood Culture - Preliminary No growth in Aerobic bottle after 24 hours. 01/24/19 06:27 Blood Anaerobic Blood Culture - Preliminary No growth in Anaerobic bottle after 24 hours. 01/24/19 06:39 Blood Aerobic Blood Culture - Preliminary No growth in Aerobic bottle after 24 hours. 01/24/19 06:39 Blood Anaerobic Blood Culture - Preliminary No growth in Anaerobic bottle after 24 hours. 01/15/19 16:56 Urine,Clean Catch Urine Culture - Final Gram negative bacilli Gram positive bacilli
--- NOTE | 2019-01-25 12:17 | Gastrointestinal Consultation ---
Date of Consultation January 25, 2019 Assessment & Plan (1) C. difficile diarrhea: Pt is a 63 y/o female currently admitted for chronic back pain, seen for recurrent Cdiff diarrhea. Has had now 3rd episode of documented + Cdiff stool test (06/2018, 09/2017, 01/24/2019). She had previously been treated with Vancomycin, even pulse taper therapy back in September. She is interested in fecal transplant. - Advance diet as tolerated - Can consider changing Vancomycin to Dificid and possible also get Infectious Disease consult - Will help arrange for fecal transplantation in outpt setting - Chronic pain management per primary team Supervising Physician Co-Signing Physician Notes Attending attestation I have seen, examined this patient, and agree with the findings and above by our mid-level provider Ms.Leonie Arellano, with the following additions -Recurent C-diff -Agree with Dificid and then planning for outpatient stool transplant History of Present Illness Reason for Consultation: Cdiff colitis Requesting Physician: Dr. Sesar Duran Attending Physician: Dr. Min Coreas History of Present Illness Pt is a 63 y/o female w hx of fibromyalgia who is currently admitted for back pain. GI consulted as she's having recurrent Cdiff. Noted on chart between [facility] ([facility] and [facility] that she's had positive Cdiff stool test in 06/2018, 09/2018 and more recently a days ago. She was on Vancomycin even the pulse taper dosing in September but diarrhea would return when course of treatment stopped. Last seen by TIANA Stock 01/13/19 for persistent diarrhea. Cdiff stool test on 01/13 negative but while she's admitted she had diarrhea and CDiff came back positive on 01/24. She is c/o diffuse abd pain, mild nausea but not vomiting, tolerating diet. + loose stools w/o rectal bleeding. Currently placed back on Vancomycin 125mg QID. She is inquiring about possible fecal transplant. She had previously been scheduled for colonoscopy on 02/02/19 to eval for diarrhea but plans for fecal transplant was cancelled when her previous outpt stool test came back negative for Cdiff on 01/13. Allergies Allergy/AdvReac Type Severity Reaction Status Date / Time cyclobenzaprine Allergy Intermediate RASH AND Verified 01/15/19 17:16 SWELLING fentanyl Allergy Intermediate MAJOR FEET Verified 01/15/19 17:16 SWELLING ketorolac [From Toradol] Allergy Unknown SEE COMMENT Verified 01/15/19 17:16 oxcarbazepine Allergy Unknown UNKNOWN - Verified 01/15/19 17:16 PT DOESN'T REMEMBER risperidone AdvReac Intermediate exhaustion Verified 01/15/19 17:16 clonazepam AdvReac Mild nausea Verified 01/15/19 17:16 Home Medications Home Medications Medication Instructions Recorded Confirmed Type acetaminophen [Tylenol Extra 1,000 mg PO Q4 PRN 08/18/18 01/15/19 History Strength] albuterol sulfate 1 puff INHALATION QID PRN 08/18/18 01/15/19 History diclofenac sodium 1 applic TOPICAL QID 08/18/18 01/15/19 History duloxetine [Cymbalta] 120 mg PO DAILY 08/18/18 01/15/19 History eszopiclone 2 mg PO HS 08/18/18 01/15/19 History ferrous sulfate 325 mg PO BID 08/18/18 01/15/19 History gabapentin 1,200 mg PO TID 08/18/18 01/15/19 History lamotrigine [Lamictal] 150 mg PO BID 08/18/18 01/15/19 History levothyroxine [Levoxyl] 50 mcg PO DAILY 08/18/18 01/15/19 History losartan 100 mg PO DAILY 08/18/18 01/15/19 History metaxalone 800 mg PO QID 08/18/18 01/15/19 History omeprazole 20 mg PO BID 08/18/18 01/15/19 History potassium chloride [Klor-Con M20] 20 meq PO DAILY 08/18/18 01/15/19 History prednisone 5 mg PO DAILY 08/18/18 01/15/19 History topiramate [Topamax] 100 mg PO QPM 08/18/18 01/15/19 History tramadol 100 mg PO Q6 PRN 08/18/18 01/15/19 History chlorthalidone 25 mg PO DAILY 01/15/19 01/15/19 History diltiazem HCl 120 mg PO DAILY 01/15/19 01/15/19 History hyoscyamine sulfate 0.125 mg PO Q4 PRN 01/15/19 01/15/19 History lorazepam 1 mg PO Q12H PRN 01/15/19 01/15/19 History meloxicam 15 mg PO DAILY PRN 01/15/19 01/15/19 History ondansetron HCl [Zofran] 8 mg PO Q8 PRN 01/15/19 01/15/19 History topiramate [Topamax] 50 mg PO HS 01/15/19 01/16/19 History Patient History Medical History Hypothyroid (Chronic) CKD (chronic kidney disease), stage III Recurrent Clostridioides difficile diarrhea IBS (irritable bowel syndrome) Hypothyroidism (Chronic) Hypertension (Chronic) Pressure injury of sacral region, stage 1 (Chronic) C. 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 Beliefs That Will Affect Care: None marital status: / Current Living Situation: Alone current occupational status: retired Feels Safe at Home: Yes Smoking Status: Former smoker Hx Alcohol Use: No Hx Substance Use: No Review of Systems Review of Systems: All systems reviewed & are unremarkable except as noted in HPI & below Physical Exam Constitutional: + thin, well groomed, cooperative and comfortable Eyes: PERRL, conjunctivae normal, anicteric sclerae ENMT: external ear and nose normal, oropharynx normal Respiratory: normal respiratory effort, lungs clear to auscultation Cardiovascular: RRR, no murmur, no edema Gastrointestinal (Abdomen): Inspection/Auscultation: + hypoactive bowel sounds Percussion/Palpation: + abdomen tender (diffuse) and abdomen soft Skin: no rashes, warm and dry no jaundice Neurologic: Motor/Sensory: no asterixis Psychiatric: A+Ox3, euthymic affect Lymphatic: no lymphedema Results & Data Vital Signs (Past 12 Hours) Vital Signs Temp Pulse Resp BP Pulse Ox 01/25/19 06:42 36.9 C 72 18 104/75 97 01/25/19 00:40 36.7 C
[2019-01-25] MEDS: FIDAXOMICIN 200 MG TAB PO SCH ×2 (13:07→21:25)
[2019-01-25] MEDS: TRAMADOL HCL 50 MG TABLET PO PRN (13:07)
[2019-01-25] MEDS: ONDANSETRON INJ 2 MG/ML 2 ML VIAL IV PRN (16:46)
[2019-01-25] MEDS: ESZOPICLONE 2 MG TABLET PO SCH (21:25)
[2019-01-25] MEDS: TOPIRAMATE 100 MG TAB PO SCH (21:29)
[2019-01-26] MEDS: MoRPHine SULFATE 4 MG/ML 1 ML CARP\\VIAL IV PRN ×2 (01:56→06:16)
[2019-01-26] MEDS: HEPARIN SOD 5,000 UNIT/0.5 ML VIAL SQ SCH ×3 (06:15→23:10)
[2019-01-26] MEDS: LEVOTHYROXINE SODIUM 50 MCG TABLET PO SCH (06:16)
[2019-01-26 08:17] LABS: Eosinophils % (auto) 4.3 %; Hematocrit (blood only) 32.3 % (37-47); Hemoglobin 10.7 g/dL (12.0-16.0); Immature Granulocytes # (auto) 0.06 K/uL (0.00-0.02); Immature Granulocytes % (auto) 1.3 %; Lymphocytes % (auto) 30.2 %; Mean Corpuscular Hgb Conc 33.1 g/dL (32-36); Mean Corpuscular Volume 93.9 fL (80-100); Mean Platelet Volume 9.7 fL (7.4-10.4); Monocytes # (auto) 0.67 K/uL (0.11-0.59); Monocytes % (auto) 14.5 %; Neutrophils % (auto) 49.7 %; Platelet Count 107 K/uL (130-400); RDW Coefficient of Variation 13.3 % (11.5-14.5); RDW Standard Deviation 45.8 fL (36.4-46.3); Red Blood Count 3.44 M/uL (4.2-5.4); White Blood Count 4.63 K/uL (4.8-10.8)
[2019-01-26 08:48] LABS: BUN Creatinine Ratio 7.6 (10-20); Creatinine Clr Calc Pharmacy 60.4 ml/min; Est GFR (African American) 73.4; Est GFR (Non-African American) 63.3; Potassium 3.5 mmol/L (3.5-5.1)
[2019-01-26] MEDS: predniSONE 10 MG TABLET PO SCH (08:49)
[2019-01-26] MEDS: DOCUSATE SODIUM 100 MG CAP PO SCH (08:50)
[2019-01-26] MEDS: GABAPENTIN 600 MG TAB PO SCH ×3 (08:50→20:41)
[2019-01-26] MEDS: FIDAXOMICIN 200 MG TAB PO SCH ×2 (08:50→21:23)
[2019-01-26] MEDS: LACTOBACILLUS ACIDOPHILUS (FLORANEX) TAB PO SCH ×3 (08:50→16:10)
[2019-01-26] MEDS: DULOXETINE HCL 60 MG CAP PO SCH (08:50)
[2019-01-26] MEDS: lamoTRIgine 100 MG TAB PO SCH ×2 (08:52→20:37)
[2019-01-26] MEDS: FAMOTIDINE 20 MG TAB PO SCH ×2 (08:52→20:39)
[2019-01-26] MEDS: POTASSIUM CHLORIDE 20 MEQ TABCR PO SCH (08:53)
[2019-01-26] MEDS: dilTIAZem ER 120 MG CAPCR PO SCH (08:54)
[2019-01-26] MEDS: METAXALONE 800 MG TABLET PO SCH ×4 (08:54→20:40)
[2019-01-26] MEDS: FERROUS SULFATE 325 MG TAB PO SCH ×2 (08:55→20:39)
[2019-01-26] MEDS: MoRPHine SULFATE 2 MG/ML CARP IV PRN ×2 (12:00→16:07)
[2019-01-26] MEDS: LIDOCAINE 5% 1 PATCH TD SCH (13:47)
[2019-01-26] MEDS ORDERED: POTASSIUM CHLORIDE 20 MEQ TABCR PO ONE (14:00)
[2019-01-26] MEDS ORDERED: HYDROCODONE/ACETAMOPHEN 5/325MG TAB PO PRN (14:39)
--- NOTE | 2019-01-26 14:48 | Hospitalist Progress Note ---
Date of Service January 26, 2019 Assessment & Plan (1) Fever: Recurrent Clostridium difficile infection -Patient had fever during hospital stay on 01/24/19 and found to have recurrent C.difficile infection as the stool was both PCR and toxin negative was started on oral Vancomycin QID on 01/24/19 -as per discussions with Gastronenterology service, this is at least a 3rd episode of C.difficile -patient has a planned outpatient colonoscopy, and consideration should be made for fecal stool transplant if this could be coordinated by outpatient GI services -ID consult started patient on DIFICID (fidaxomicin) on 01/25/19 and awaiting outpatient insurance approval (2) Sacroiliac joint disease: -Patient with history of Fibromyalgia and sacroiliac joint disease -A review of PDMP of TRAMADOL HCL 50 MG TABLET 30 day supply was filled as outpatient on 12/30/18 -MRI 01/24/19 did not find evidence of infection (1. Extensive posterior interbody rosalia and screw fusion redemonstrated extending from T10-L5 with artifact from the hardware limiting the study. 2. No acute fracture, subluxation, focal bone marrow edema or evidence of acute discitis/osteomyelitis. 3. Multilevel facet arthrosis with ligamentum flavum thickening and spondylitic spurring as above. No high-grade central canal or foraminal narrowing.) -during the hospital stay, patient had [place] 10 mg q6 hours and solumedrol without significant subjective improvements by the patient breakthrough pain requiring IV morphine -Pain management consult Recommend Nucynta every 6 hours, [place] discontinued -however as of evaluation on 01/25/19, patient has been declining Nucynta - resumed home dose tramadol prn as 100 mg q6 hour so that there is some long acting pain medication; continue current gabapentin, duloxetine, metaxalone -as of 01/26/19 have reduced morphine to 2 mg IV q4 hours prn and added prn [place] q8 hours only if morphine not controlling pain (3) NINOSKA (acute kidney injury): -Serum creatinine at time of admission 1.56 compared to baseline of approximately 1.1. -Acute kidney injury probably secondary to volume depletion from chronic/persistent diarrhea and poor p.o. fluid intake -NINOSKA resolved with IV fluids on this admission (4) Hypokalemia: -secondary to chronic diarrhea and inadequate oral intake. -Hypokalemia is resolved- (5) Urinary tract infection: -Admission Urinalysis demonstrated leukocyte esterase, pyuria, bacteriuria. -patient has completed 4 day course of ceftriaxone on this hospital stay (6) Hypertension: -continue losartan. (7) C. difficile diarrhea: Recurrent Clostridium difficile infection -Patient had fever during hospital stay on 01/24/19 and found to have recurrent C.difficile infection as the stool was both PCR and toxin negative was started on oral Vancomycin QID on 01/24/19 -as per discussions with Gastronenterology service, this is at least a 3rd episode of C.difficile -patient has a planned outpatient colonoscopy, and consideration should be made for fecal stool transplant if this could be coordinated by outpatient GI services -ID consult started patient on DIFICID (fidaxomicin) on 01/25/19 and awaiting outpatient insurance approval -give oral potassium as needed to replace GI losses of potassium (8) Pressure injury of sacral region, stage 1: -Patient has been relatively immobile because of her back and sacroiliac pain. -Avoid pressure/reposition. -recommend repositioning , off loading (9) Hypothyroidism: -Continue levothyroxine. (10) DVT prophylaxis: sub q heparin SCDs. Encouraged to ambulate. (11) Discharge planning issues: Referrals to [facility] in progress Subjective Patient's pain generally controlled from an objective point of view. Not in distress. ambulates with cane. However, she has labile affect. and very concerned when in regards to pain control and as needed pain control medic ations. And refers to episode yesterday when pain not controlled by morphine. has diarrhea today. no abdomen pain. we talked about repleting electrolytes in the hospital and awaiting outpatient authorization for Dificid. Physical Exam Constitutional: + thin Eyes: PERRL, conjunctivae normal, anicteric sclerae EOM intact bilaterally ENMT: external ear and nose normal, oropharynx normal Respiratory: normal respiratory effort, lungs clear to auscultation Cardiovascular: Rate/Rhythm: regular rate and regular rhythm Gastrointestinal (Abdomen): normal bowel sounds, soft, nontender, no hepatosplenomegaly Musculoskeletal: Head/Neck/Chest: normocephalic and head atraumatic Neurologic: PERRL, EOMI, accommodation nl, no face palsy, no dysarthria Psychiatric: Affect: + labile affect Results & Data Vital Signs (Past 12 Hours) Vital Signs Temp Pulse Resp BP Pulse Ox 01/26/19 06:50 36.6 C 75 16 114/65 96
[2019-01-26] MEDS: TOPIRAMATE 100 MG TAB PO SCH (20:40)
[2019-01-26] MEDS: ESZOPICLONE 2 MG TABLET PO SCH (20:44)
[2019-01-27] MEDS: MoRPHine SULFATE 2 MG/ML CARP IV PRN ×5 (02:50→22:25)
[2019-01-27] MEDS: HEPARIN SOD 5,000 UNIT/0.5 ML VIAL SQ SCH ×3 (04:56→21:07)
[2019-01-27] MEDS: LEVOTHYROXINE SODIUM 50 MCG TABLET PO SCH (04:57)
[2019-01-27] MEDS: LACTOBACILLUS ACIDOPHILUS (FLORANEX) TAB PO SCH ×3 (08:30→17:24)
[2019-01-27] MEDS: LIDOCAINE 5% 1 PATCH TD SCH (08:31)
[2019-01-27] MEDS: DOCUSATE SODIUM 100 MG CAP PO SCH (08:31)
[2019-01-27] MEDS: GABAPENTIN 600 MG TAB PO SCH ×3 (08:31→21:06)
[2019-01-27] MEDS: DULOXETINE HCL 60 MG CAP PO SCH (08:31)
[2019-01-27] MEDS: dilTIAZem ER 120 MG CAPCR PO SCH (08:32)
[2019-01-27] MEDS: predniSONE 10 MG TABLET PO SCH (08:32)
[2019-01-27] MEDS: lamoTRIgine 100 MG TAB PO SCH ×2 (08:33→21:08)
[2019-01-27] MEDS: FIDAXOMICIN 200 MG TAB PO SCH ×2 (08:34→21:05)
[2019-01-27] MEDS: METAXALONE 800 MG TABLET PO SCH ×4 (08:34→21:07)
[2019-01-27] MEDS: FAMOTIDINE 20 MG TAB PO SCH ×2 (08:34→21:08)
[2019-01-27] MEDS: FERROUS SULFATE 325 MG TAB PO SCH ×2 (08:34→21:10)
[2019-01-27] MEDS: POTASSIUM CHLORIDE 20 MEQ TABCR PO SCH (08:35)
[2019-01-27 09:26] LABS: BUN Creatinine Ratio 4.8 (10-20); Calcium 9.5 mg/dl (8.5-10.1); Creatinine Clr Calc Pharmacy 55.1 ml/min; Est GFR (African American) 65.8; Est GFR (Non-African American) 56.7; Magnesium 2.4 mg/dl (1.8-2.4); Potassium 3.9 mmol/L (3.5-5.1)
[2019-01-27] MEDS: TRAMADOL HCL 50 MG TABLET PO PRN ×2 (11:35→21:04)
--- NOTE | 2019-01-27 11:54 | Hospitalist Progress Note ---
Date of Service January 27, 2019 Assessment & Plan (1) Fever: Recurrent Clostridium difficile infection -Patient had fever during hospital stay on 01/24/19 and found to have recurrent C.difficile infection as the stool was both PCR and toxin negative was started on oral Vancomycin QID on 01/24/19 -as per discussions with Gastronenterology service, this is at least a 3rd episode of C.difficile -patient has a planned outpatient colonoscopy, and consideration should be made for fecal stool transplant if this could be coordinated by outpatient GI services -ID consult started patient on DIFICID (fidaxomicin) on 01/25/19 and awaiting outpatient insurance approval (2) Sacroiliac joint disease: -Patient with history of Fibromyalgia and sacroiliac joint disease -A review of PDMP of TRAMADOL HCL 50 MG TABLET 30 day supply was filled as outpatient on 12/30/18 -MRI 01/24/19 did not find evidence of infection (1. Extensive posterior interbody rosalia and screw fusion redemonstrated extending from T10-L5 with artifact from the hardware limiting the study. 2. No acute fracture, subluxation, focal bone marrow edema or evidence of acute discitis/osteomyelitis. 3. Multilevel facet arthrosis with ligamentum flavum thickening and spondylitic spurring as above. No high-grade central canal or foraminal narrowing.) -during the hospital stay, patient had [place] 10 mg q6 hours and solumedrol without significant subjective improvements by the patient breakthrough pain requiring IV morphine -Pain management consult Recommend Nucynta every 6 hours, [place] discontinued -however as of evaluation on 01/25/19, patient has been declining Nucynta - resumed home dose tramadol prn as 100 mg q6 hour so that there is some long acting pain medication; continue current gabapentin, duloxetine, metaxalone -as of 01/26/19 have reduced morphine to 2 mg IV q4 hours prn and added prn [place] q8 hours only if morphine not controlling pain -01/27/19: patient seeking a different hospitalist because she feels that her pain is not well controlled and because the pain not controlled by morphine and she had problems with the [facility] prn scheduling. I believe that the patient has a dependency on narcotic pain medications and that previous attempts with consultation by pain management has not been to determine to the patient's satisfaction of what adequate pain control would be -Dr Irving will be taking over patient's care (3) NINOSKA (acute kidney injury): -Serum creatinine at time of admission 1.56 compared to baseline of approximately 1.1. -Acute kidney injury probably secondary to volume depletion from chronic/persistent diarrhea and poor p.o. fluid intake -NINOSKA resolved with IV fluids on this admission (4) Hypokalemia: -secondary to chronic diarrhea and inadequate oral intake. -Hypokalemia is resolved- (5) Urinary tract infection: -Admission Urinalysis demonstrated leukocyte esterase, pyuria, bacteriuria. -patient has completed 4 day course of ceftriaxone on this hospital stay (6) Hypertension: -continue losartan. 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 Patient was started on oral Vancomycin on 01/24/19 and the transitioned to DIFICID (fidaxomicin) 200 mg BID on 01/25/19 -Arrangement have been made with pmo manager and insurance approved for outpatient DIFICID (fidaxomicin) 200 mg BID for a total 10 day course counting the days of DIFICID treatment in the hospital and these medications are to be sent to patient's house -as per discussions with Gastronenterology service, this is at least a 3rd episode of C.difficile -Patient had previous scheduled appointment for endoscopy but because of recurrent C.difficile [facility] clinic appointment line has been called to set up an Gastroenterology clinic appointment (Date: 02/02/2019 Time: 2:30 PM Status: Scheduled ; Location: ENDOSCOPY [facility] Room: [facility] Endo 2 Service: Gastroenterology Patient class: Outpatient) [facility] gastroenterology services to arrange for fecal stool transplant evaluation (8) Pressure injury of sacral region, stage 1: -Patient has been relatively immobile because of her back and sacroiliac pain. -Avoid pressure/reposition. -recommend repositioning , off loading (9) Hypothyroidism: -Continue levothyroxine. (10) DVT prophylaxis: sub q heparin SCDs. Patient able to ambulate with cane (11) Discharge planning issues: home health services coordinated by case management as patient does not meet criteria for physical therapy center Subjective Ms. Odom has a very labile affect. After coming into the room and patient appeared to be very calm. But then in a very angry manner she reported that her pain was not well controlled on current regimen (patient seeking a different hospitalist because she feels that her pain is not well controlled and because the pain not controlled by morphine and she had problems with the [facility] prn scheduling) and accused the physician of not being truthful about the pain medication regimen. She would not let the physician speak about the hospital course until she was done speaking and she ended her dialogue by reporting that she would like to have a different physician. Physical Exam 2 Physical Exam: patient deferred physical exam
[2019-01-27] MEDS: HYDROCODONE/ACETAMOPHEN 5/325MG TAB PO PRN ×3 (12:40→23:40)
--- NOTE | 2019-01-27 17:02 | XRay Report ---
XR chest 1V portable CLINICAL HISTORY: 63 years-old Female presenting with rt sided chest wall pain since this morning, no trauma. TECHNIQUE: Portable upright AP view of the chest was obtained. COMPARISON: 01/24/2019. FINDINGS: Cardiac silhouette borderline enlarged. No focal opacity. No large effusion or pneumothorax. Thoracol umbar fusion hardware. Degenerative changes of the left glenohumeral joint. Upper abdomen normal. IMPRESSION: 1. No acute cardiopulmonary disease. Electronically signed by: Douglas Griffith M.D. 01/27/2019 5:00 PM
[2019-01-27] MEDS: ACETAMINOPHEN 325 MG TAB PO PRN (17:30)
[2019-01-27] MEDS: ESZOPICLONE 2 MG TABLET PO SCH (21:05)
[2019-01-27] MEDS: TOPIRAMATE 100 MG TAB PO SCH (21:11)
[2019-01-28] MEDS: MoRPHine SULFATE 2 MG/ML CARP IV PRN ×2 (03:37→14:58)
[2019-01-28] MEDS: HYDROCODONE/ACETAMOPHEN 5/325MG TAB PO PRN ×3 (04:38→21:27)
[2019-01-28] MEDS: TRAMADOL HCL 50 MG TABLET PO PRN ×2 (05:43→20:03)
[2019-01-28] MEDS: HEPARIN SOD 5,000 UNIT/0.5 ML VIAL SQ SCH ×3 (05:45→21:39)
[2019-01-28] MEDS: LEVOTHYROXINE SODIUM 50 MCG TABLET PO SCH (05:45)
[2019-01-28] MEDS: ONDANSETRON INJ 2 MG/ML 2 ML VIAL IV PRN (07:00)
[2019-01-28] MEDS: lamoTRIgine 100 MG TAB PO SCH ×2 (07:49→21:29)
[2019-01-28] MEDS: FAMOTIDINE 20 MG TAB PO SCH ×2 (07:50→21:32)
[2019-01-28] MEDS: POTASSIUM CHLORIDE 20 MEQ TABCR PO SCH (07:51)
[2019-01-28] MEDS: HYOSCYAMINE SULFATE 0.125 MG TAB PO PRN (07:51)
[2019-01-28] MEDS: dilTIAZem ER 120 MG CAPCR PO SCH (07:51)
[2019-01-28] MEDS: predniSONE 5 MG TAB PO SCH (07:53)
[2019-01-28] MEDS: METAXALONE 800 MG TABLET PO SCH ×4 (07:53→21:27)
[2019-01-28] MEDS: LOSARTAN POTASSIUM 50 MG TAB PO SCH (07:53)
[2019-01-28] MEDS: DULOXETINE HCL 60 MG CAP PO SCH (07:54)
[2019-01-28] MEDS: DOCUSATE SODIUM 100 MG CAP PO SCH (07:54)
[2019-01-28] MEDS: LACTOBACILLUS ACIDOPHILUS (FLORANEX) TAB PO SCH ×3 (07:55→16:38)
[2019-01-28] MEDS: GABAPENTIN 600 MG TAB PO SCH ×3 (07:55→21:28)
[2019-01-28] MEDS: FERROUS SULFATE 325 MG TAB PO SCH ×2 (07:55→21:30)
[2019-01-28] MEDS: LIDOCAINE 5% 1 PATCH TD SCH (07:58)
[2019-01-28] MEDS: FIDAXOMICIN 200 MG TAB PO SCH ×2 (09:17→21:38)
--- NOTE | 2019-01-28 17:37 | Hospitalist Progress Note ---
Date of Service January 28, 2019 Assessment & Plan (1) Fever: Recurrent Clostridium difficile infection was started on oral Vancomycin QID on 01/24/19 -as per discussions with Gastronenterology service, this is at least a 3rd episode of C.difficile -patient has a planned outpatient colonoscopy, and consideration should be made for fecal stool transplant if this could be coordinated by outpatient GI services -ID consult started patient on DIFICID (fidaxomicin) on 01/25/19 Patient has outpatient Dificid insurance approval co-pay $0 (2) Sacroiliac joint disease: -Patient with history of Fibromyalgia and sacroiliac joint disease -A review of PDMP of TRAMADOL HCL 50 MG TABLET 30 day supply was filled as outpatient on 12/30/18 -MRI 01/24/19 did not find evidence of infection (1. Extensive posterior interbody rosalia and screw fusion redemonstrated extending from T10-L5 with artifact from the hardware limiting the study. 2. No acute fracture, subluxation, focal bone marrow edema or evidence of acute discitis/osteomyelitis. 3. Multilevel facet arthrosis with ligamentum flavum thickening and spondylitic spurring as above. No high-grade central canal or foraminal narrowing.) -during the hospital stay, patient had [place] 10 mg q6 hours and solumedrol without significant subjective improvements by the patient breakthrough pain requiring IV morphine -Pain management consult Recommend Nucynta every 6 hours, [place] discontinued -however as of evaluation on 01/25/19, patient has been declining Nucynta - resumed home dose tramadol prn as 100 mg q6 hour so that there is some long acting pain medication; continue current gabapentin, duloxetine, metaxalone -as of 01/26/19 have reduced morphine to 2 mg IV q4 hours prn and added prn [place] q8 hours only if morphine not controlling pain -01/27/19: patient seeking a different hospitalist because she feels that her pain is not well controlled and because the pain not controlled by morphine and she had problems with the [facility] prn scheduling. I believe that the patient has a dependency on narcotic pain medications and that previous attempts with consultation by pain management has not been to determine to the patient's satisfaction of what adequate pain control would be Patient continues to request IV morphine as her pain is not well controlled After multiple discussion IV morphine changed to OxyIR Continue to titrate pain medication: Transition to oral, and gradual dose reduction, goal of care is patient to be discharged from hospital (3) NINOSKA (acute kidney injury): -Serum creatinine at time of admission 1.56 compared to baseline of approximately 1.1. -Acute kidney injury probably secondary to volume depletion from chronic/persistent diarrhea and poor p.o. fluid intake -NINOSKA resolved with IV fluids on this admission (4) Hypokalemia: -secondary to chronic diarrhea and inadequate oral intake. -Hypokalemia is resolved- (5) Urinary tract infection: -Admission Urinalysis demonstrated leukocyte esterase, pyuria, bacteriuria. -patient has completed 4 day course of ceftriaxone on this hospital stay (6) Hypertension: -continue losartan. 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 Patient was started on oral Vancomycin on 01/24/19 and the transitioned to DIFICID (fidaxomicin) 200 mg BID on 01/25/19 -Arrangement have been made with case sealer and insurance approved for outpatient DIFICID (fidaxomicin) 200 mg BID for a total 10 day course counting the days of DIFICID treatment in the hospital and these medications are to be sent to patient's house -as per discussions with Gastronenterology service, this is at least a 3rd episode of C.difficile -Patient had previous scheduled appointment for endoscopy but because of recurrent C.difficile [facility] clinic appointment line has been called to set up an Gastroenterology clinic appointment (Date: 02/02/2019 Time: 2:30 PM Status: Scheduled ; Location: ENDOSCOPY [facility] Room: [facility] Endo 2 Service: Gastroenterology Patient class: Outpatient) [facility] gastroenterology services to arrange for fecal stool transplant evaluation Patient has insurance approval for outpatient Dificid and (8) Pressure injury of sacral region, stage 1: -Patient has been relatively immobile because of her back and sacroiliac pain. -Avoid pressure/reposition. -recommend repositioning , off loading (9) Hypothyroidism: -Continue levothyroxine. (10) DVT prophylaxis: sub q heparin SCDs. Patient able to ambulate with cane (11) Discharge planning issues: home health services coordinated by case management as patient does not meet criteria for rehab Plan to discharge home with home health home PT Subjective She continues to demand for higher dose of pain medication Reports her pain is not well controlled She is counseled her pain medication needs to be titrated to oral in order for her to be discharged from hospital Patient insist her pain has to be 02 level in order for her to return home At present claims her pain is persistently at 68 level After long discussion with patient, IV morphine changed to oral OxyIR Patient will be continued with p.o. tramadol, [place] Physical Exam Constitutional: no acute distress Respiratory: no respiratory distress Auscultation: lungs clear to auscultation bilaterally Cardiovascular: Rate/Rhythm: regular rate and regular rhythm Heart Sounds: no gallop and no murmur Vessels: no JVD Extremities: no calf tenderness and no edema Gastrointestinal (Abdomen): normal bowel sounds, soft, nontender, no hepatosplenomegaly Musculoskeletal: Spine: + sacral tenderness (over right SI joint) Extremities: no cyanosis and no clubbing Skin: no rashes, warm and dry Psychiatric: Orientation: alert and oriented x 3 Results & Data Vital Signs (Past 12 Hours) Vital Signs Temp Pulse Resp BP Pulse Ox 01/28/19 16:24 36.4 C L 80 18 109/68 94 01/28/19 07:51 36.8 C 64 18 148/89 H 100
[2019-01-28] MEDS: MoRPHine SULFATE IR 15 MG TAB (IMMEDIATE RELEASE) PO PRN (18:22)
[2019-01-28] MEDS: TOPIRAMATE 100 MG TAB PO SCH (21:31)
[2019-01-28] MEDS: ESZOPICLONE 2 MG TABLET PO SCH (21:45)
[2019-01-29] MEDS: MoRPHine SULFATE IR 15 MG TAB (IMMEDIATE RELEASE) PO PRN ×5 (00:04→20:42)
[2019-01-29] MEDS ORDERED: ALUM HYDROX/MAG TRISILICATE CHEW PO STA (00:20)
[2019-01-29] MEDS: HYDROCODONE/ACETAMOPHEN 5/325MG TAB PO PRN ×2 (03:12→10:12)
[2019-01-29] MEDS: HEPARIN SOD 5,000 UNIT/0.5 ML VIAL SQ SCH ×3 (05:40→21:38)
[2019-01-29] MEDS: LEVOTHYROXINE SODIUM 50 MCG TABLET PO SCH (05:41)
[2019-01-29] MEDS: LOSARTAN POTASSIUM 50 MG TAB PO SCH (07:26)
[2019-01-29] MEDS: LACTOBACILLUS ACIDOPHILUS (FLORANEX) TAB PO SCH ×3 (07:28→18:16)
[2019-01-29] MEDS: FAMOTIDINE 20 MG TAB PO SCH ×2 (07:30→20:44)
[2019-01-29] MEDS: GABAPENTIN 600 MG TAB PO SCH ×3 (07:32→20:45)
[2019-01-29] MEDS: DOCUSATE SODIUM 100 MG CAP PO SCH (07:32)
[2019-01-29] MEDS: DULOXETINE HCL 60 MG CAP PO SCH (07:32)
[2019-01-29] MEDS: METAXALONE 800 MG TABLET PO SCH ×4 (07:33→20:45)
[2019-01-29] MEDS: dilTIAZem ER 120 MG CAPCR PO SCH (07:35)
[2019-01-29] MEDS: FERROUS SULFATE 325 MG TAB PO SCH ×2 (07:36→20:47)
[2019-01-29] MEDS: predniSONE 5 MG TAB PO SCH (07:37)
[2019-01-29] MEDS: POTASSIUM CHLORIDE 20 MEQ TABCR PO SCH (07:37)
[2019-01-29] MEDS: lamoTRIgine 100 MG TAB PO SCH ×2 (07:38→20:46)
[2019-01-29] MEDS: LIDOCAINE 5% 1 PATCH TD SCH (07:44)
[2019-01-29] MEDS: FIDAXOMICIN 200 MG TAB PO SCH ×2 (08:11→20:42)
[2019-01-29] MEDS ORDERED: ALUM HYDROX/MAG TRISILICATE CHEW PO PRN ×2 (15:04→19:18)
--- NOTE | 2019-01-29 18:00 | Hospitalist Progress Note ---
Date of Service January 29, 2019 Assessment & Plan (1) Fever: Recurrent Clostridium difficile infection was started on oral Vancomycin QID on 01/24/19 -as per discussions with Gastronenterology service, this is at least a 3rd episode of C.difficile -patient has a planned outpatient colonoscopy, and consideration should be made for fecal stool transplant if this could be coordinated by outpatient GI services -ID consult started patient on DIFICID (fidaxomicin) on 01/25/19 Patient has outpatient Dificid insurance approval co-pay $0 (2) Sacroiliac joint disease: -Patient with history of Fibromyalgia and sacroiliac joint disease -A review of PDMP of TRAMADOL HCL 50 MG TABLET 30 day supply was filled as outpatient on 12/30/18 -MRI 01/24/19 did not find evidence of infection (1. Extensive posterior interbody rosalia and screw fusion redemonstrated extending from T10-L5 with artifact from the hardware limiting the study. 2. No acute fracture, subluxation, focal bone marrow edema or evidence of acute discitis/osteomyelitis. 3. Multilevel facet arthrosis with ligamentum flavum thickening and spondylitic spurring as above. No high-grade central canal or foraminal narrowing.) -during the hospital stay, patient had [place] 10 mg q6 hours and solumedrol without significant subjective improvements by the patient breakthrough pain requiring IV morphine -Pain management consult Recommend Nucynta every 6 hours, [place]act[place] discontinued -however as of evaluation on 01/25/19, patient has been declining Nucynta - resumed home dose tramadol prn as 100 mg q6 hour so that there is some long acting pain medication; continue current gabapentin, duloxetine, metaxalone -as of 01/26/19 have reduced morphine to 2 mg IV q4 hours prn and added prn [place] q8 hours only if morphine not controlling pain -01/27/19: patient seeking a different hospitalist because she feels that her pain is not well controlled and because the pain not controlled by morphine and she had problems with the [facility] prn scheduling. I believe that the patient has a dependency on narcotic pain medications and that previous attempts with consultation by pain management has not been to determine to the patient's satisfaction of what adequate pain control would be Patient continues to request IV morphine as her pain is not well controlled After multiple discussion IV morphine changed to OxyIR Initial dose was 7.5 mg every 4 hours, dose increased to 15 mg p.o. 4 q. hours as patient was complaining of poor pain control Continue to titrate pain medication: Transition to oral, and gradual dose reduction, goal of care is patient to be discharged from hospital (3) NINOSKA (acute kidney injury): -Serum creatinine at time of admission 1.56 compared to baseline of approximately 1.1. 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 fluid intake -NINOSKA resolved with IV fluids on this admission (4) Hypokalemia: -secondary to chronic diarrhea and inadequate oral intake. -Hypokalemia is resolved- (5) Urinary tract infection: -Admission Urinalysis demonstrated leukocyte esterase, pyuria, bacteriuria. -patient has completed 4 day course of ceftriaxone on this hospital stay (6) Hypertension: -continue losartan. 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 Patient was started on oral Vancomycin on 01/24/19 and the transitioned to DIFICID (fidaxomicin) 200 mg BID on 01/25/19 -Arrangement have been made with director of casework and insurance approved for outpatient DIFICID (fidaxomicin) 200 mg BID for a total 10 day course counting the days of DIFICID treatment in the hospital and these medications are to be sent to patient's house -as per discussions with Gastronenterology service, this is at least a 3rd episode of C.difficile -Patient had previous scheduled appointment for endoscopy but because of recurrent C.difficile [facility] clinic appointment line has been called to set up an Gastroenterology clinic appointment (Date: 02/02/2019 Time: 2:30 PM Status: Scheduled ; Location: ENDOSCOPY [facility] Room: [facility] Endo 2 Service: Gastroenterology Patient class: Outpatient) [facility] gastroenterology services to arrange for fecal stool transplant evaluation Patient has insurance approval for outpatient Dificid and (8) Pressure injury of sacral region, stage 1: -Patient has been relatively immobile because of her back and sacroiliac pain. -Avoid pressure/reposition. -recommend repositioning , off loading (9) Hypothyroidism: -Continue levothyroxine. (10) DVT prophylaxis: sub q heparin SCDs. Patient able to ambulate with cane (11) Discharge planning issues: home health services coordinated by case management as patient does not meet criteria for rehab Plan to discharge home with home health home PT Subjective She says she feels more irritated all through today Does not believe half tablet/7.5 mg oral morphine is helping once higher dose Her aches and pains are seen staying in 78 level After long discussion, morphine IR increased to 50 mg / 1 tablet p.o. every 4 hours as needed Patient is counseled we will try to avoid IV morphine as we are trying to titrate her medication dose keeping it oral in order for her to return/discharge home Patient is agreeable Physical Exam Constitutional: no acute distress Respiratory: no respiratory distress Auscultation: lungs clear to auscultation bilaterally Cardiovascular: Rate/Rhythm: regular rate and regular rhythm Heart Sounds: no gallop and no murmur Vessels: no JVD Extremities: no calf tenderness and no edema Gastrointestinal (Abdomen): normal bowel sounds, soft, nontender, no hepatosplenomegaly Musculoskeletal: Spine: + sacral tenderness (over right SI joint) Extremities: no cyanosis and no clubbing Skin: no rashes, warm and dry Psychiatric: Orientation: alert and oriented x 3 Results & Data Vital Signs (Past 12 Hours) Vital Signs Temp Pulse Resp BP Pulse Ox 01/29/19 15:07 36.9 C 72 17 112/70 99 01/29/19 07:50 36.7 C 65 18 139/78 95
[2019-01-29] MEDS: TOPIRAMATE 100 MG TAB PO SCH (20:43)
[2019-01-29] MEDS: ESZOPICLONE 2 MG TABLET PO SCH (20:43)
[2019-01-30] MEDS: MoRPHine SULFATE IR 15 MG TAB (IMMEDIATE RELEASE) PO PRN ×6 (01:00→23:32)
[2019-01-30] MEDS: HEPARIN SOD 5,000 UNIT/0.5 ML VIAL SQ SCH ×3 (05:08→21:04)
[2019-01-30] MEDS: LEVOTHYROXINE SODIUM 50 MCG TABLET PO SCH (05:08)
[2019-01-30] MEDS: HYDROCODONE/ACETAMOPHEN 5/325MG TAB PO PRN ×3 (08:27→20:59)
[2019-01-30] MEDS: FIDAXOMICIN 200 MG TAB PO SCH ×2 (08:28→20:59)
[2019-01-30] MEDS: FAMOTIDINE 20 MG TAB PO SCH ×2 (08:29→21:00)
[2019-01-30] MEDS: METAXALONE 800 MG TABLET PO SCH ×4 (08:29→21:00)
[2019-01-30] MEDS: predniSONE 5 MG TAB PO SCH (08:29)
[2019-01-30] MEDS: LOSARTAN POTASSIUM 50 MG TAB PO SCH (08:29)
[2019-01-30] MEDS: DULOXETINE HCL 60 MG CAP PO SCH (08:30)
[2019-01-30] MEDS: LACTOBACILLUS ACIDOPHILUS (FLORANEX) TAB PO SCH ×3 (08:30→17:45)
[2019-01-30] MEDS: GABAPENTIN 600 MG TAB PO SCH ×3 (08:31→21:03)
[2019-01-30] MEDS: lamoTRIgine 100 MG TAB PO SCH ×2 (08:31→21:02)
[2019-01-30] MEDS: DOCUSATE SODIUM 100 MG CAP PO SCH (08:32)
[2019-01-30] MEDS: POTASSIUM CHLORIDE 20 MEQ TABCR PO SCH (08:32)
[2019-01-30] MEDS: FERROUS SULFATE 325 MG TAB PO SCH ×2 (08:32→21:00)
[2019-01-30] MEDS: dilTIAZem ER 120 MG CAPCR PO SCH (08:33)
[2019-01-30] MEDS: LIDOCAINE 5% 1 PATCH TD SCH (08:34)
--- NOTE | 2019-01-30 18:04 | Hospitalist Progress Note ---
Date of Service January 30, 2019 Assessment & Plan (1) Fever: Recurrent Clostridium difficile infection was started on oral Vancomycin QID on 01/24/19 -as per discussions with Gastronenterology service, this is at least a 3rd episode of C.difficile -patient has a planned outpatient colonoscopy, and consideration should be made for fecal stool transplant if this could be coordinated by outpatient GI services -ID consult started patient on DIFICID (fidaxomicin) on 01/25/19 Patient has outpatient Dificid insurance approval co-pay $0 (2) Sacroiliac joint disease: -Patient with history of Fibromyalgia and sacroiliac joint disease -A review of PDMP of TRAMADOL HCL 50 MG TABLET 30 day supply was filled as outpatient on 12/30/18 -MRI 01/24/19 did not find evidence of infection (1. Extensive posterior interbody rosalia and screw fusion redemonstrated extending from T10-L5 with artifact from the hardware limiting the study. 2. No acute fracture, subluxation, focal bone marrow edema or evidence of acute discitis/osteomyelitis. 3. Multilevel facet arthrosis with ligamentum flavum thickening and spondylitic spurring as above. No high-grade central canal or foraminal narrowing.) -during the hospital stay, patient had [place] 10 mg q6 hours and solumedrol without significant subjective improvements by the patient breakthrough pain requiring IV morphine -Pain management consult Recommend Nucynta every 6 hours, [place] discontinued -however as of evaluation on 01/25/19, patient has been declining Nucynta - resumed home dose tramadol prn as 100 mg q6 hour so that there is some long acting pain medication; continue current gabapentin, duloxetine, metaxalone -as of 01/26/19 have reduced morphine to 2 mg IV q4 hours prn and added prn [place] q8 hours only if morphine not controlling pain -01/27/19: patient seeking a different hospitalist because she feels that her pain is not well controlled and because the pain not controlled by morphine and she had problems with the [facility] prn scheduling. I believe that the patient has a dependency on narcotic pain medications and that previous attempts with consultation by pain management has not been to determine to the patient's satisfaction of what adequate pain control would be Patient continues to request IV morphine as her pain is not well controlled After multiple discussion IV morphine changed to OxyIR Initial dose was 7.5 mg every 4 hours, dose increased to 15 mg p.o. 4 q. hours as patient was complaining of poor pain control Continue to titrate pain medication: Transition to oral, and gradual dose reduction, goal of care is patient to be discharged from hospital (3) NINOSKA (acute kidney injury): -Serum creatinine at time of admission 1.56 compared to baseline of approximately 1.1. 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 fluid intake -NINOSKA resolved with IV fluids on this admission (4) Hypokalemia: -secondary to chronic diarrhea and inadequate oral intake. -Hypokalemia is resolved- (5) Urinary tract infection: -Admission Urinalysis demonstrated leukocyte esterase, pyuria, bacteriuria. -patient has completed 4 day course of ceftriaxone on this hospital stay (6) Hypertension: -continue losartan. 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 Patient was started on oral Vancomycin on 01/24/19 and the transitioned to DIFICID (fidaxomicin) 200 mg BID on 01/25/19 -Arrangement have been made with patient case manager and insurance approved for outpatient DIFICID (fidaxomicin) 200 mg BID for a total 10 day course counting the days of DIFICID treatment in the hospital and these medications are to be sent to patient's house -as per discussions with Gastronenterology service, this is at least a 3rd episode of C.difficile -Patient had previous scheduled appointment for endoscopy but because of recurrent C.difficile [facility] clinic appointment line has been called to set up an Gastroenterology clinic appointment (Date: 02/02/2019 Time: 2:30 PM Status: Scheduled ; Location: ENDOSCOPY [facility] Room: [facility] Endo 2 Service: Gastroenterology Patient class: Outpatient) [facility] gastroenterology services to arrange for fecal stool transplant evaluation Patient has insurance approval for outpatient Dificid and (8) Pressure injury of sacral region, stage 1: -Patient has been relatively immobile because of her back and sacroiliac pain. -Avoid pressure/reposition. -recommend repositioning , off loading (9) Hypothyroidism: -Continue levothyroxine. (10) DVT prophylaxis: sub q heparin SCDs. Patient able to ambulate with cane (11) Discharge planning issues: home health services coordinated by case management as patient does not meet criteria for rehab Plan to discharge home with home health home PT Subjective Morphine tablet dose increased to 15 mg daily, as patient reports 7.5 mg/after weakness and helping Continue to complain of SI joint pain, pain secondary to fibromyalgia Her speech remained very pressured and very tangential thought process Irritated/angry very easily Physical Exam Constitutional: no acute distress Respiratory: no respiratory distress Auscultation: lungs clear to auscultation bilaterally Cardiovascular: Rate/Rhythm: regular rate and regular rhythm Heart Sounds: no gallop and no murmur Vessels: no JVD Extremities: no calf tenderness and no edema Gastrointestinal (Abdomen): normal bowel sounds, soft, nontender, no hepatosplenomegaly Musculoskeletal: Spine: + sacral tenderness (over right SI joint) Extremities: no cyanosis and no clubbing Skin: no rashes, warm and dry Psychiatric: Orientation: alert and oriented x 3 Eye Contact: + fair eye contact Speech: + pressured speech and + loud speech Affect: + labile affect, + irritable affect and + angry affect Mood: + irritable mood and + angry mood Thought Process: + tangential thought process and + flight of ideas Thought Content: + obsessions and + paranoid Insight: + severely impaired insight Judgement: + impaired judgement Results & Data Vital Signs (Past 12 Hours) Vital Signs Temp Pulse Resp BP Pulse Ox 01/30/19 07:42 36.6 C 76 18 113/62 98
[2019-01-30] MEDS: ESZOPICLONE 2 MG TABLET PO SCH (20:58)
[2019-01-30] MEDS: TOPIRAMATE 100 MG TAB PO SCH (21:01)
[2019-01-31] MEDS: LEVOTHYROXINE SODIUM 50 MCG TABLET PO SCH (06:04)
[2019-01-31] MEDS: HEPARIN SOD 5,000 UNIT/0.5 ML VIAL SQ SCH ×3 (06:04→20:41)
[2019-01-31] MEDS: MoRPHine SULFATE IR 15 MG TAB (IMMEDIATE RELEASE) PO PRN ×3 (06:30→20:36)
[2019-01-31] MEDS: LACTOBACILLUS ACIDOPHILUS (FLORANEX) TAB PO SCH ×3 (09:41→17:03)
[2019-01-31] MEDS: FIDAXOMICIN 200 MG TAB PO SCH ×2 (09:41→20:36)
[2019-01-31] MEDS: LOSARTAN POTASSIUM 50 MG TAB PO SCH (09:42)
[2019-01-31] MEDS: FAMOTIDINE 20 MG TAB PO SCH ×2 (09:42→20:41)
[2019-01-31] MEDS: predniSONE 5 MG TAB PO SCH (09:42)
[2019-01-31] MEDS: FERROUS SULFATE 325 MG TAB PO SCH ×2 (09:43→20:41)
[2019-01-31] MEDS: METAXALONE 800 MG TABLET PO SCH ×4 (09:43→20:44)
[2019-01-31] MEDS: lamoTRIgine 100 MG TAB PO SCH ×2 (09:43→20:39)
[2019-01-31] MEDS: dilTIAZem ER 120 MG CAPCR PO SCH (09:43)
[2019-01-31] MEDS: DOCUSATE SODIUM 100 MG CAP PO SCH (09:44)
[2019-01-31] MEDS: DULOXETINE HCL 60 MG CAP PO SCH (09:45)
[2019-01-31] MEDS: LIDOCAINE 5% 1 PATCH TD SCH (09:45)
[2019-01-31] MEDS: GABAPENTIN 600 MG TAB PO SCH ×3 (09:46→20:38)
[2019-01-31] MEDS: POTASSIUM CHLORIDE 20 MEQ TABCR PO SCH (09:47)
[2019-01-31] MEDS ORDERED: LORazepam 1 MG TAB PO PRN (16:36)
[2019-01-31] MEDS: HYDROCODONE/ACETAMOPHEN 5/325MG TAB PO PRN (18:19)
--- NOTE | 2019-01-31 18:21 | Hospitalist Progress Note ---
Date of Service January 31, 2019 Assessment & Plan (1) Discharge planning issues: Patient has been in hospital for 14 days Admitted for sacroiliac joint pain, with recommendation for SI joint injection per outpatient physician Pain management was consulted, SI joint injection could not be done until next 3 weeks until C. difficile infection is completely resolved, Patient continues to complain her pain is not adequately controlled, Is seen walking independently in room and in the hallway-uses a cane, which is obese Did not qualify for inpatient rehab, as patient's functional ability back to her baseline Evaluated by pain management earlier, patient does not want to follow their recommendation refused to take Nucynta as it does not help Wants to have a second opinion from Dr. Priest Spinal orthopedics consulted Remains a very difficult situation for discharge Social service following for discharge planning, Referral made to home health visiting nurse Patient wants at least 24 hours notice prior home health visiting nurse visit (2) Sacroiliac joint disease: -Patient with history of Fibromyalgia and sacroiliac joint disease -A review of PDMP of TRAMADOL HCL 50 MG TABLET 30 day supply was filled as outpatient on 12/30/18 -MRI 01/24/19 did not find evidence of infection (1. Extensive posterior interbody rosalia and screw fusion redemonstrated extending from T10-L5 with artifact from the hardware limiting the study. 2. No acute fracture, subluxation, focal bone marrow edema or evidence of acute discitis/osteomyelitis. 3. Multilevel facet arthrosis with ligamentum flavum thickening and spondylitic spurring as above. No high-grade central canal or foraminal narrowing.) -during the hospital stay, patient had [place] 10 mg q6 hours and solumedrol without significant subjective improvements by the patient breakthrough pain requiring IV morphine -Pain management consult Recommend Nucynta every 6 hours, [place] discontinued -however as of evaluation on 01/25/19, patient has been declining Nucynta - resumed home dose tramadol prn as 100 mg q6 hour so that there is some long acting pain medication; continue current gabapentin, duloxetine, metaxalone -as of 01/26/19 have reduced morphine to 2 mg IV q4 hours prn and added prn [place] q8 hours only if morphine not controlling pain -01/27/19: patient seeking a different hospitalist because she feels that her pain is not well controlled and because the pain not controlled by morphine and she had problems with the [facility] prn scheduling. I believe that the patient has a dependency on narcotic pain medications and that previous attempts with consultation by pain management has not been to determine to the patient's satisfaction of what adequate pain control would be Patient continues to request IV morphine as her pain is not well controlled After multiple discussion IV morphine changed to OxyIR Initial dose was 7.5 mg every 4 hours, dose increased to 15 mg p.o. 4 q. hours as patient was complaining of poor pain control Continue to titrate pain medication: Transition to oral, and gradual dose reduction, goal of care is patient to be discharged from hospital (3) NINOSKA (acute kidney injury): -Serum creatinine at time of admission 1.56 compared to baseline of approximately 1.1. -Acute kidney injury probably secondary to volume depletion from chronic/persistent diarrhea and poor p.o. fluid intake -NINOSKA resolved with IV fluids on this admission (4) Hypokalemia: -secondary to chronic diarrhea and inadequate oral intake. -Hypokalemia is resolved- (5) Urinary tract infection: -Admission Urinalysis demonstrated leukocyte esterase, pyuria, bacteriuria. -patient has completed 4 day course of ceftriaxone on this hospital stay (6) Hypertension: -continue losartan. 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 Patient was started on oral Vancomycin on 01/24/19 and the transitioned to DIFICID (fidaxomicin) 200 mg BID on 01/25/19 -Arrangement have been made with case resolution specialist and insurance approved for outpatient DIFICID (fidaxomicin) 200 mg BID for a total 10 day course counting the days of DIFICID treatment in the hospital and these medications are to be sent to patient's house -as per discussions with Gastronenterology service, this is at least a 3rd episode of C.difficile -Patient had previous scheduled appointment for endoscopy but because of recurrent C.difficile [facility] clinic appointment line has been called to set up an Gastroenterology clinic appointment (Date: 02/02/2019 Time: 2:30 PM Status: Scheduled ; Location: ENDOSCOPY [facility] Room: [facility] Endo 2 Service: Gastroenterology Patient class: Outpatient) [facility] gastroenterology services to arrange for fecal stool transplant evaluation Patient has insurance approval for outpatient Dificid Recurrent Clostridium difficile infection was started on oral Vancomycin QID on 01/24/19 -as per discussions with Gastronenterology service, this is at least a 3rd episode of C.difficile -patient has a planned outpatient colonoscopy, and consideration should be made for fecal stool transplant if this could be coordinated by outpatient GI services -ID consult started patient on DIFICID (fidaxomicin) on 01/25/19 Patient has outpatient Dificid insurance approval co-pay $0 (8) Pressure injury of sacral region, stage 1: -Patient has been relatively immobile because of her back and sacroiliac pain. -Avoid pressure/reposition. -recommend repositioning , off loading (9) Hypothyroidism: -Continue levothyroxine. (10) DVT prophylaxis: sub q heparin SCDs. Patient able to ambulate with cane Subjective Patient is seen with case resolution specialist soon histology today She is transitioned to oral pain meds, Has been in hospital for last 14 days with chronic stable pain, patient reports of having this pain for the last 30 years Expects pain to be down to 02 prior to discharge Counseling provided, as it may not be possible, to achieve that goal, patient does not require inpatient admission, needs to follow-up with outpatient pain clinic for continued titration of her pain meds Patient became very agitated, angry, belligerent, Since she was admitted to get SI joint injection which she has not gotten, Due to her C. difficile infection joint infection has to be postponed for next 3 weeks Counseling provided patient cannot be staying in the hospital for 3 weeks, her chronic pain SI joint injection may not give her complete relief, patient needs to continue to follow-up with pain clinic Patient wanted to have a second opinion with Dr. Priest, Continues to have crying spell, very upset with the conversation regarding possible discharge,got very mad that her hospital admission could be declined by insurance as she does not meets acute criteria for inpatient stay She could not comprehend "why pain could not be diagnosed as a very serious acute issue, and ongoing hospital stay needs to happen for complete relief" Patient is ordered p.o. Ativan, as she continues to cry and scream hysterically. Physical Exam Constitutional: + acute distress Area upset, crying Respiratory: Auscultation: lungs clear to auscultation bilaterally Cardiovascular: Rate/Rhythm: regular rate and regular rhythm Heart Sounds: no gallop and no murmur Gastrointestinal (Abdomen): normal bowel sounds, soft, nontender, no hepatosplenomegaly Skin: no rashes, warm and dry Psychiatric: Orientation: alert and oriented x 3 Eye Contact: + fair eye contact Speech: + pressured speech and + loud speech Affect: + labile affect, + irritable affect and + angry affect Mood: + irritable mood and + angry mood Thought Process: + tangential thought process and + flight of ideas Thought Content: + obsessions and + paranoid Insight: + severely impaired insight Judgement: + impaired judgement Results & Data Vital Signs (Past 12 Hours) Vital Signs Temp Pulse Resp BP Pulse Ox 01/31/19 15:36 37.1 C 88 17 118/68 96 01/31/19 07:28 36.9 C 71 18 112/66 97
[2019-01-31] MEDS: ESZOPICLONE 2 MG TABLET PO SCH (20:37)
[2019-01-31] MEDS: TOPIRAMATE 100 MG TAB PO SCH (20:42)
[2019-02-01] MEDS: LEVOTHYROXINE SODIUM 50 MCG TABLET PO SCH (06:21)
[2019-02-01] MEDS: HEPARIN SOD 5,000 UNIT/0.5 ML VIAL SQ SCH ×3 (06:21→20:50)
[2019-02-01] MEDS: dilTIAZem ER 120 MG CAPCR PO SCH (09:53)
[2019-02-01] MEDS: POTASSIUM CHLORIDE 20 MEQ TABCR PO SCH (09:53)
[2019-02-01] MEDS: METAXALONE 800 MG TABLET PO SCH ×4 (09:53→20:44)
[2019-02-01] MEDS: FERROUS SULFATE 325 MG TAB PO SCH ×2 (09:54→20:45)
[2019-02-01] MEDS: lamoTRIgine 100 MG TAB PO SCH ×2 (09:54→20:43)
[2019-02-01] MEDS: FIDAXOMICIN 200 MG TAB PO SCH ×2 (09:54→20:42)
[2019-02-01] MEDS: DOCUSATE SODIUM 100 MG CAP PO SCH (09:55)
[2019-02-01] MEDS: GABAPENTIN 600 MG TAB PO SCH ×3 (09:55→20:43)
[2019-02-01] MEDS: DULOXETINE HCL 60 MG CAP PO SCH (09:55)
[2019-02-01] MEDS: LOSARTAN POTASSIUM 50 MG TAB PO SCH (09:56)
[2019-02-01] MEDS: LACTOBACILLUS ACIDOPHILUS (FLORANEX) TAB PO SCH ×3 (09:56→17:36)
[2019-02-01] MEDS: predniSONE 5 MG TAB PO SCH (09:57)
[2019-02-01] MEDS: FAMOTIDINE 20 MG TAB PO SCH ×2 (09:58→20:44)
[2019-02-01] MEDS: LIDOCAINE 5% 1 PATCH TD SCH (09:58)
[2019-02-01] MEDS: MoRPHine SULFATE IR 15 MG TAB (IMMEDIATE RELEASE) PO PRN ×4 (10:21→23:49)
[2019-02-01] MEDS: HYDROCODONE/ACETAMOPHEN 5/325MG TAB PO PRN ×2 (17:31→21:51)
--- NOTE | 2019-02-01 20:11 | Hospitalist Progress Note ---
Date of Service February 01, 2019 Assessment & Plan (1) Sacroiliac joint disease: History of Fibromyalgia and sacroiliac joint disease MRI lumbar showed Extensive posterior interbody rosalia and screw fusion redemonstrated extending from T10-L5 with artifact from the hardware limiting the study. Multilevel facet arthrosis with ligamentum flavum thickening and spondylitic spurring as above. No high-grade central canal or foraminal narrowing. Pain management on board recommneded no interventional procedure due to on going infection recommended Nucynta q6 hr, and to discontinue [place], but patient has been refused the Nucynta Ortho on board recommended no surgical intervention has been ambulated in the hallway with a cane Refused to be discharged home. She wants to stay to the hospital to continue with therapy Will refer to rehab Will consider to titrate off pain med (2) NINOSKA (acute kidney injury): Serum creatinine at time of admission 1.56 compared to baseline of approximately 1.1. Acute kidney injury probably secondary to volume depletion from chronic/persistent diarrhea and poor p.o. fluid intake Resolved (3) Hypokalemia: secondary to chronic diarrhea and inadequate oral intake. Resolved (4) Urinary tract infection: Urinalysis demonstrated leukocyte esterase, pyuria, bacteriuria. Suspected contamination as per ID Received 4 day course of ceftriaxone Stable (5) Hypertension: continue losartan. Stable (6) C. 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 Patient was started on oral Vancomycin on 01/24/19 and the transitioned to DIFICID (fidaxomicin) 200 mg BID on 01/25/19 -Arrangement have been made with manager of case and insurance approved for outpatient DIFICID (fidaxomicin) 200 mg BID for a total 10 day course counting the days of DIFICID treatment in the hospital and these medications are to be sent to patient's house -as per discussions with Gastronenterology service, this is at least a 3rd episode of C.difficile -Patient had previous scheduled appointment for endoscopy but because of recurrent C.difficile [facility] clinic appointment line has been called to set up an Gastroenterology clinic appointment (Date: 02/02/2019 Time: 2:30 PM Status: Scheduled ; Location: ENDOSCOPY [facility] Room: [facility] Endo 2 Service: Gastroenterology Patient class: Outpatient) [facility] gastroenterology services to arrange for fecal stool transplant evaluation Patient has insurance approval for outpatient Dificid Recurrent Clostridium difficile infection was started on oral Vancomycin QID on 01/24/19 -as per discussions with Gastronenterology service, this is at least a 3rd e pisode of C.difficile -patient has a planned outpatient colonoscopy, and consideration should be made for fecal stool transplant if this could be coordinated by outpatient GI services -ID consult started patient on DIFICID (fidaxomicin) on 01/25/19 Patient has outpatient Dificid insurance approval co-pay $0 (7) Pressure injury of sacral region, stage 1: Avoid pressure/reposition. Recommend repositioning every 2 hrs (8) Hypothyroidism: Continue levothyroxine. (9) DVT prophylaxis: sub q heparin SCDs. Subjective Pt was seen and examined Lying in bed with no distress Pt is very comfortable in bed but when asked about her pain she said it is about 9 or 10 out 10 She has been ambulated in the hallway with her cane Pt said that her goal is to have a 0 to 2 pain I told the patient that i cannot guarantee her a 0 to 2 pain level I told her the plan is to reduce her pain (tolerable) where she can able to function Pt got very agitated whenever previous providers tried to discharge her She wants to stay in the hospital until her infection is cleared to get the SI joint injection from pain management She said that she can do rehab in the hospital She does not want to the therapy or the joint injection as an outpatient I told patient that the hospital is not a safe place to stay due to risk of infection I told patient that since she has been follow with Dr. Priest, I will follow dr. Priest recommendation Pt agreed with the plan to follow Dr. Priest recommendation Case discussed with Dr. Priest and recommended no surgical intervention Will try to get her to rehab, but if denies, we will discharge to schedule with pain management for the injection Dr Priest agreed with the plan. Physical Exam Physical Exam: General- No acute distress, mood swing Head- atraumatic Eyes- PERRL, EOMI, ENT- oropharynx clear Neck- supple, no JVD Lungs- clear to auscultation Heart- regular rhythm; no murmur Abdomen- normal bowel sounds, soft, nontender Extremities- no calf tenderness Neuro- alert, oriented x 3; PERRL, EOMI; no facial palsy; no dysarthria Skin- warm & dry Results & Data Vital Signs (Past 12 Hours) Vital Signs Temp Pulse Resp BP Pulse Ox 02/01/19 15:52 37.5 C 98 H 18 133/78 96
[2019-02-01] MEDS: ESZOPICLONE 2 MG TABLET PO SCH (20:42)
[2019-02-01] MEDS: TOPIRAMATE 100 MG TAB PO SCH (20:44)
[2019-02-02] MEDS: HYDROCODONE/ACETAMOPHEN 5/325MG TAB PO PRN ×2 (02:18→15:42)
[2019-02-02] MEDS: LEVOTHYROXINE SODIUM 50 MCG TABLET PO SCH (06:13)
[2019-02-02] MEDS: HEPARIN SOD 5,000 UNIT/0.5 ML VIAL SQ SCH ×2 (06:13→14:37)
[2019-02-02] MEDS: MoRPHine SULFATE IR 15 MG TAB (IMMEDIATE RELEASE) PO PRN ×2 (06:13→13:27)
[2019-02-02] MEDS: LACTOBACILLUS ACIDOPHILUS (FLORANEX) TAB PO SCH ×2 (08:01→13:29)
[2019-02-02] MEDS: POTASSIUM CHLORIDE 20 MEQ TABCR PO SCH (08:01)
[2019-02-02] MEDS: METAXALONE 800 MG TABLET PO SCH ×2 (08:01→13:31)
[2019-02-02] MEDS: FIDAXOMICIN 200 MG TAB PO SCH (08:01)
[2019-02-02] MEDS: predniSONE 5 MG TAB PO SCH (08:02)
[2019-02-02] MEDS: LOSARTAN POTASSIUM 50 MG TAB PO SCH (08:02)
[2019-02-02] MEDS: GABAPENTIN 600 MG TAB PO SCH ×2 (08:03→13:28)
[2019-02-02] MEDS: DULOXETINE HCL 60 MG CAP PO SCH (08:03)
[2019-02-02] MEDS: DOCUSATE SODIUM 100 MG CAP PO SCH (08:03)
[2019-02-02] MEDS: FERROUS SULFATE 325 MG TAB PO SCH (08:04)
[2019-02-02] MEDS: lamoTRIgine 100 MG TAB PO SCH (08:04)
[2019-02-02] MEDS: FAMOTIDINE 20 MG TAB PO SCH (08:04)
[2019-02-02] MEDS: LIDOCAINE 5% 1 PATCH TD SCH (08:05)
[2019-02-02] MEDS: dilTIAZem ER 120 MG CAPCR PO SCH (08:05)
--- NOTE | 2019-02-02 08:18 | Orthopedic Consultation ---
Date of Consultation February 02, 2019 Assessment & Plan (1) Spinal stenosis, lumbar region with neurogenic claudication: At this time patient does have an ongoing infection. She also has some significant underlying psychological issues. She is subsequently very poor surgical candidate. In fact I am not sure she would ever qualify for surgery based on her consistent presentation. This time of encouraged her to follow the recommendations of pain management. She may explore possible rehab if possible however she does not qualify for rehab she may go home with perhaps home nursing. Light of the fact that she would be a high risk for infection and poor outcome. Present on Admission?: Yes History of Present Illness Reason for Consultation: And leg pain Attending Physician: Jo Stark MD History of Present Illness This is a 63-year-old female is well-known to me. She is status post multilevel lumbar decompression fusion several years ago. She is developed disc space collapse and stenosis at the L5-S1 level as well as bilateral sacroiliitis. She complains of incapacitating pain in this region but is struggling with multiple medical issues C. difficile and psychiatric issues. Allergies Allergy/AdvReac Type Severity Reaction Status Date / Time cyclobenzaprine Allergy Intermediate RASH AND Verified 01/15/19 17:16 SWELLING fentanyl Allergy Intermediate MAJOR FEET Verified 01/15/19 17:16 SWELLING ketorolac [From Toradol] Allergy Unknown SEE COMMENT Verified 01/15/19 17:16 oxcarbazepine Allergy Unknown UNKNOWN - Verified 01/15/19 17:16 PT DOESN'T REMEMBER risperidone AdvReac Intermediate exhaustion Verified 01/15/19 17:16 clonazepam AdvReac Mild nausea Verified 01/15/19 17:16 Home Medications Home Medications Medication Instructions Recorded Confirmed Type acetaminophen [Tylenol Extra 1,000 mg PO Q4 PRN 08/18/18 01/15/19 History Strength] albuterol sulfate 1 puff INHALATION QID PRN 08/18/18 01/15/19 History diclofenac sodium 1 applic TOPICAL QID 08/18/18 01/15/19 History duloxetine [Cymbalta] 120 mg PO DAILY 08/18/18 01/15/19 History eszopiclone 2 mg PO HS 08/18/18 01/15/19 History ferrous sulfate 325 mg PO BID 08/18/18 01/15/19 History gabapentin 1,200 mg PO TID 08/18/18 01/15/19 History lamotrigine [Lamictal] 150 mg PO BID 08/18/18 01/15/19 History levothyroxine [Levoxyl] 50 mcg PO DAILY 08/18/18 01/15/19 History losartan 100 mg PO DAILY 08/18/18 01/15/19 History metaxalone 800 mg PO QID 08/18/18 01/15/19 History omeprazole 20 mg PO BID 08/18/18 01/15/19 History potassium chloride [Klor-Con M20] 20 meq PO DAILY 08/18/18 01/15/19 History prednisone 5 mg PO DAILY 08/18/18 01/15/19 History topiramate [Topamax] 100 mg PO QPM 08/18/18 01/15/19 History tramadol 100 mg PO Q6 PRN 08/18/18 01/15/19 History chlorthalidone 25 mg PO DAILY 01/15/19 01/15/19 History diltiazem HCl 120 mg PO DAILY 01/15/19 01/15/19 History hyoscyamine sulfate 0.125 mg PO Q4 PRN 01/15/19 01/15/19 History lorazepam 1 mg PO Q12H PRN 01/15/19 01/15/19 History meloxicam 15 mg PO DAILY PRN 01/15/19 01/15/19 History ondansetron HCl [Zofran] 8 mg PO Q8 PRN 01/15/19 01/15/19 History topiramate [Topamax] 50 mg PO HS 01/15/19 01/16/19 History Patient History Medical History Hypothyroid (Chronic) CKD (chronic kidney disease), stage III Recurrent Clostridioides difficile diarrhea IBS (irritable bowel syndrome) Hypothyroidism (Chronic) Hypertension (Chronic) Pressure injury of sacral region, stage 1 (Chronic) C. difficile diarrhea (Chronic) Depression (Chronic) Bipolar disorder (Chronic) Fibromyalgia (Chronic) Borderline personality disorder (Chronic) Hypokalemia Hyponatremia (Acute) Polypharmacy (Chronic) Wound abscess (Resolved) Surgical History S/P cataract surgery H/O carpal tunnel repair H/O inguinal hernia repair (Chronic) Status post total hip replacement, left (Chronic) Family History Other Cancer Heart disease Hypertension Lung disease Social History Preferred Language: Bol[place]ian Communication Ability: Effective Revival Clerk Required: No Beliefs That Will Affect Care: None marital status: / Current Living Situation: Alone current occupational status: retired Feels Safe at Home: Yes Smoking Status: Former smoker Hx Alcohol Use: No Hx Substance Use: No Physical Exam Physical Exam: On exam she is neurologically intact. She moves about the bed without any evidence of antalgia. Results & Data Vital Signs (Past 12 Hours) Vital Signs Temp Pulse Resp BP Pulse Ox 02/02/19 07:39 36.4 C L 65 20 129/82 95 02/01/19 23:35 36.8 C 63 18 123/79 95
--- NOTE | 2019-02-02 14:59 | Hospitalist Progress Note ---
Date of Service February 02, 2019 Assessment & Plan (1) Sacroiliac joint disease: History of Fibromyalgia and sacroiliac joint disease MRI lumbar showed Extensive posterior interbody rosalia and screw fusion redemonstrated extending from T10-L5 with artifact from the hardware limiting the study. Multilevel facet arthrosis with ligamentum flavum thickening and spondylitic spurring as above. No high-grade central canal or foraminal narrowing. Pain management on board recommended no interventional procedure for now due to on going infection recommended Nucynta q6 hr, and to discontinue [place], but patient has been refused the Nucynta Ortho on board Case discussed with ortho Dr. Priest recommended no surgical intervention Case discussed with Pain management Dr. Anastasia WARREN pain management does not want to accept patient for outpatient follow up since patient was discharged from [facility] and was verbally abusive to pain management team during her hospital course Will need outpatient follow up with pain management (her PCP will [facility] a [facility] to refer to Dr. Blackwood at [facility] wound clinic) Has been ambulated in the hallway with a cane Refused to be discharged home if she does not get a prescription for adequate pain med to take at home on discharge Denies by [facility] for inpatient rehab since pt is moving around well Agreed to go home with home health if she gets a script for adequate pain med on discharge Continue PT/OT Fall precaution (2) NINOSKA (acute kidney injury): Serum creatinine at time of admission 1.56 compared to baseline of approximately 1.1. Acute kidney injury probably secondary to volume depletion from chronic/persistent diarrhea and poor p.o. fluid intake Resolved (3) Hypokalemia: secondary to chronic diarrhea and inadequate oral intake. Resolved (4) Urinary tract infection: Urinalysis demonstrated leukocyte esterase, pyuria, bacteriuria. Suspected contamination as per ID Received 4 day course of ceftriaxone Stable (5) Hypertension: continue losartan. Stable (6) C. difficile diarrhea: Recurrent Clostridium difficile infection Patient had fever during hospital stay on 01/24/19 and found to have recurrent C.difficile infection as the stool was both PCR and toxin positive During the evaluation and treatment for pain, patient found to have recurrent C.difficile infection and diarrhea. Patient was started on oral Vancomycin on 01/24/19 and the transitioned to DIFICID (fidaxomicin) 200 mg BID on 01/25/19 ID on board recommended to complete a total of 10days course for DIFICID Arrangement have been made with gearcase assembler and insurance approved for outpatient DIFICID (fidaxomicin) 200 mg BID for a total 10 day course counting the days of DIFICID treatment in the hospital and these medications are to be sent to patient's house Gastronenterology on board and since this is at least a 3rd episode of C.difficile will need to arrange for fecal stool transplant evaluation patient has a planned outpatient colonoscopy, and consideration should be made for fecal stool transplant if this could be coordinated by outpatient GI services Patient has outpatient Dificid insurance approval co-pay $0 Will complete course of Dificid on 02/04 Follow up with Gastro on 03/10 @ 2PM for fecal stool transplant (7) Pressure injury of sacral region, stage 1: Avoid pressure/reposition. Recommend repositioning every 2 hrs (8) Hypothyroidism: Continue levothyroxine. (9) DVT prophylaxis: On subq heparin SCDs. Disposition Discharge home today with home health services Follow up with your primary care provider Dr. Osman on 02/07 @ 10:45 AM Follow up with Gastro on 03/10 @ 2PM for fecal stool transplant Subjective Pt was seen and examined Lying in bed with no distress and comfortable Pt is upset because she did not get her pain med on time She has been asking for pain med round the clock When I asked to listen her back (during exam), she was able to stretch her lumbar area (back) forward to her knees with no discomfort She agreed to be discharged today if I discharged her with narcotic She said that she will not go anywhere if she does not get a script for adequate pain medication to take on discharge She was denied by [facility] for rehab as per gearcase assembler Denies any chest pain, palpitation, dizziness and SOB Physical Exam Physical Exam: General- No acute distress, mood swing Head- atraumatic Eyes- PERRL, EOMI, ENT- oropharynx clear Neck- supple, no JVD Lungs- clear to auscultation Heart- regular rhythm; no murmur Abdomen- normal bowel sounds, soft, nontender Extremities- no calf tenderness Neuro- alert, oriented x 3; PERRL, EOMI; no facial palsy; no dysarthria Skin- warm & dry Results & Data Vital Signs (Past 12 Hours) Vital Signs Temp Pulse Resp BP Pulse Ox 02/02/19 07:39 36.4 C L 65 20 129/82 95
[2019-02-02] MEDS ORDERED: FIDAXOMICIN 200 MG TAB PO SCH (16:15)
--- NOTE | 2019-02-03 08:03 | Discharge Summary ---
Date of Service February 02, 2019 Admission HPI Per Admitting Provider 63-year-old female with bipolar disorder and fibromyalgia as well as chronic back pain presents with acute on chronic back pain. She states for the last 2 weeks she has had severe lower back pain. She reports seeing her back surgeon who recommended a trial of injections, requiring referral to pain management. She reports when she went to see the pain management doctor he was unavailable and she is still in pain. This was 4 days ago. She takes many medications that interact including tramadol, Skelaxin, gabapentin, Ativan. She is on chronic prednisone 5 mg p.o. daily. She states that none of these help her pain. She has a history of meloxicam use which she states does not work. She did experience some relief with morphine IV and states that Dilaudid has worked in the past also. She reports that for the past 7 months she has been "bedridden" however, she does live alone and is able to perform her activities of daily living. She reports persistent diarrhea with 4-6 watery bowel movements daily. She stopped her vancomycin last week under supervision of her GI physician who is planning a fecal transplant in upcoming weeks. She reports that just today she experienced dysuria and chills with some suprapubic tenderness. She denies any flank pain and states that she has had low-grade fevers for the last 7 months that have not changed with the C. difficile infection. She reports feeling rundown and as a result of this has some shortness of breath but denies any chest pain. She has some erythema with a closed sore on her sacrum, which she reports is a know bedsore which causes her pain. She otherwise denies any symptoms. With respect to eating she states she has a loss of appetite secondary to the pain. She did vomit once this morning but this has not been refractory. She was able to swallow potassium pill in the ER and keep it down. She was able to swallow a potassium pill in the ER keep it down. Admission Exam Per Admitting Provider CONSTITUTIONAL: WNWD, vitals as above, generally well-appearing EYES: normal conjunctivae, no scleral icterus ENT: mucous membranes are dry RESPIRATORY: clear to auscultation bilaterally, no crackles, rales or wheezes, normal respiratory effort CARDIOVASCULAR: regular rate and rhythm, S1 and 2 heard without murmurs, gallops or rubs, no JVD, no peripheral edema GASTROINTESTINAL: normal bowel sounds, soft, generalized tenderness in spots without guarding. Nondistended, no CVA tenderness MUSCULOSKELETAL: strength 5/5 throughout, head is normocephalic and atraumatic SKIN: warm and dry NEUROLOGIC: No facial palsy, no dysarthria. CN 2-12 grossly intact, normal cognition, normal speech, no tremor, no gross focal deficits. PSYCHIATRIC: alert cooperative and oriented to person, place and time. Principal Diagnosis Recurrent Clostridium difficile infection Sacroiliac joint disease History of Fibromyalgia Acute kidney injury Hypokalemia Hypertension Pressure injury of sacral region, stage 1 Hypothyroidism Discharge Exam General- No acute distress, mood swing Head- atraumatic Eyes- PERRL, EOMI, ENT- oropharynx clear Neck- supple, no JVD Lungs- clear to auscultation Heart- regular rhythm; no murmur Abdomen- normal bowel sounds, soft, nontender Extremities- no calf tenderness Neuro- alert, oriented x 3; PERRL, EOMI; no facial palsy; no dysarthria Skin- warm & dry Discharge Data Allergies Allergy/AdvReac Type Severity Reaction Status Date / Time cyclobenzaprine Allergy Intermediate RASH AND Verified 01/15/19 17:16 SWELLING fentanyl Allergy Intermediate MAJOR FEET Verified 01/15/19 17:16 SWELLING ketorolac [From Toradol] Allergy Unknown SEE COMMENT Verified 01/15/19 17:16 oxcarbazepine Allergy Unknown UNKNOWN - Verified 01/15/19 17:16 PT DOESN'T REMEMBER risperidone AdvReac Intermediate exhaustion Verified 01/15/19 17:16 clonazepam AdvReac Mild nausea Verified 01/15/19 17:16 Consultations 01/16/19 14:56 Consult Pain Management Routine 01/24/19 18:18 Consult Gastroenterology Routine 01/25/19 10:32 Consult Infectious Diseases Routine 01/31/19 16:46 Consult Orthopedic Surgery Routine Ordered Studies 01/24/19 09:20 MR lumbar spine wo con Routine Hospital Course (1) Sacroiliac joint disease: History of Fibromyalgia and sacroiliac joint disease MRI lumbar showed Extensive posterior interbody rosalia and screw fusion redemonstrated extending from T10-L5 with artifact from the hardware limiting the study. Multilevel facet arthrosis with ligamentum flavum thickening and spondylitic spurring as above. No high-grade central canal or foraminal narrowing. Pain management on board recommended no interventional procedure for now due to on going infection recommended Nucynta q6 hr, and to discontinue Bailey, but patient has been refused the Nucynta Ortho on board Case discussed with ortho Dr. Priest recommended no surgical intervention Case discussed with Pain management Dr. Anastasia WARREN pain management does not want to accept patient for outpatient follow up since patient was discharged from [facility] and was verbally abusive to pain management team during her hospital course Will need outpatient follow up with pain management (her PCP will put a referral to [facility] to refer to Dr. Blackwood at [facility] wound clinic) Has been ambulated in the hallway with a cane Refused to be discharged home if she does not get a prescription for adequate pain med to take at home on discharge Denies by [facility] for inpatient rehab since pt is moving around well Agreed to go home with home health if she gets a script for adequate pain med on discharge Continue PT/OT Fall precaution (2) NINOSKA (acute kidney injury): Serum creatinine at time of admission 1.56 compared to baseline of approximately 1.1. Acute kidney injury probably secondary to volume depletion from chronic/persistent diarrhea and poor p.o. fluid intake Resolved (3) Hypokalemia: secondary to chronic diarrhea and inadequate oral intake. Resolved (4) Urinary tract infection: Urinalysis demonstrated leukocyte esterase, pyuria, bacteriuria. Suspected contamination as per ID Received 4 day course of ceftriaxone Stable (5) Hypertension: continue losartan. Stable (6) C. difficile diarrhea: Recurrent Clostridium difficile infection Patient had fever during hospital stay on 01/24/19 and found to have recurrent C.difficile infection as the stool was both PCR and toxin positive During the evaluation and treatment for pain, patient found to have recurrent C.difficile infection and diarrhea. Patient was started on oral Vancomycin on 01/24/19 and the transitioned to DIFICID (fidaxomicin) 200 mg BID on 01/25/19 ID on board recommended to complete a total of 10days course for DIFICID Arrangement have been made with ed case manager and insurance approved for outpatient DIFICID (fidaxomicin) 200 mg BID for a total 10 day course counting the days of DIFICID treatment in the hospital and these medications are to be sent to patient's house Gastronenterology on board and since this is at least a 3rd episode of C.difficile will need to arrange for fecal stool transplant evaluation patient has a planned outpatient colonoscopy, and consideration should be made for fecal stool transplant if this could be coordinated by outpatient GI services Patient has outpatient Dificid insurance approval co-pay $0 Will complete course of Dificid on 02/04 Follow up with Gastro on 03/10 @ 2PM for fecal stool transplant (7) Pressure injury of sacral region, stage 1: Avoid pressure/reposition. Recommend repositioning every 2 hrs (8) Hypothyroidism: Continue levothyroxine. (9) DVT prophylaxis: On subq heparin SCDs. Disposition Discharge home today with home health services Follow up with your primary care provider Dr. Osman on 02/07 @ 10:45 AM Follow up with Gastro on 03/10 @ 2PM for fecal stool transplant Total Time Total Time Spent Total Time Spent (In Minutes): 35 minutes Total Time Includes: Examination of the Patient, Discharge Planning, Medication Reconciliation, Communication With Other Providers and Other Discharge Plan Discharge Items Patient Disposition: Home - Home Health Services Reason For Visit: NINOSKA,HYPOKALEMIA Discharge Diagnosis: Recurrent Clostridium difficile infection, sacroiliac joint disease, history of Fibromyalgia, acute kidney injury (resolved), urinary tract infection (resolved) Condition: Good Discharge Goals: Improve disease control Activity: Per 'Additional Instructions' section Non-emergency contact: Primary Care Provider Call non-emergency contact if: you have any medication questions and your temperature is above 101 Follow-up/Referrals: Arpit Osman MD [Primary Care Provider] - Diet: Regular Addtl Provider Instructions: Discharge home with home health services During the evaluation and treatment for pain, patient found to have recurrent C.difficile infection and diarrhea. Patient was started on oral Vancomycin on 01/24/19 and the transitioned to DIFICID (fidaxomicin) 200 mg BID on 01/25/19 Arrangement have been made with ed case manager and insurance approved for outpatient DIFICID (fidaxomicin) 200 mg BID for a total 10 day course counting the days of DIFICID treatment in the hospital and these medications are to be sent to patient's house. You will complete the course of DIFICID on 02/04/19 Pharmacy will give patient 1 tab of Dificid to take home for tonight. Follow up with [facility] gastroenterology on 03/10/19 @ 2PM for fecal stool transplant evaluation You should avoid chlorthalidone for the blood pressure medication while having diarrhea which can exacerbate loss of potassium. Patient should take daily potassium supplements 02/07/2019 @ 10:45 AM Provider Arpit Osman III, MD Department Family Practice [facility] (review of [place] Prescription Drug Monitoring Program of TRAMADOL HCL 50 MG TABLET 30 day supply was filled as outpatient on 12/30/18) Patient should follow with primary care doctor or pain management clinic for further pain management Your physician will put referral for pain management for outpatient evaluation for Injection with [facility] pain management. 03/21/2019 2:00 PM Provider TIANA David Department Gastroenterology, [facility] Continue physical and occupation therapy Fall precaution Please do not drive or operate any machine while on narcotic Please hold the narcotic if you become drowsy or lethargy Check BMP in 1 week to monitor your electrolytes Prescriptions: New Dificid 200 mg Tablet 200 mg PO BID Qty: 6 RF: 0 hydrocodone-acetaminophen [Bailey] 5-325 mg Tablet 1 tab PO Q8H PRN (Reason: pain) Qty: 12 RF: 0 Continued prednisone 5 mg Tablet 5 mg PO DAILY RF: 0 tramadol 50 mg Tablet 100 mg PO Q6 PRN (Reason: Pain) RF: 0 potassium chloride [Klor-Con M20] 20 mEq Tablet,Er Particles/Crystals 20 meq PO DAILY RF: 0 levothyroxine [Levoxyl] 50 mcg Tablet 50 mcg PO DAILY RF: 0 ferrous sulfate 325 mg (65 mg iron) Tablet 325 mg PO BID RF: 0 gabapentin 300 mg Capsule 1,200 mg PO TID RF: 0 omeprazole 20 mg Capsule,Delayed Release(Dr/Ec) 20 mg PO BID RF: 0 albuterol sulfate 90 mcg/actuation Hfa Aerosol Inhaler 1 puff INHALATION QID PRN (Reason: cough, wheezing) RF: 0 topiramate [Topamax] 100 mg Tablet 100 mg PO QPM RF: 0 losartan 100 mg Tablet 100 mg PO DAILY RF: 0 lamotrigine [Lamictal] 100 mg Tablet 150 mg PO BID RF: 0 metaxalone 800 mg Tablet 800 mg PO QID RF: 0 duloxetine [Cymbalta] 60 mg Capsule,Delayed Release(Dr/Ec) 120 mg PO DAILY RF: 0 eszopiclone 2 mg Tablet 2 mg PO HS RF: 0 diclofenac sodium 1 % Gel 1 applic TOPICAL QID RF: 0 ondansetron HCl [Zofran] 8 mg Tablet 8 mg PO Q8 PRN (Reason: Nausea And Vomiting) RF: 0 meloxicam 15 mg Tablet 15 mg PO DAILY PRN (Reason: Pain) RF: 0 hyoscyamine sulfate 0.125 mg Tablet 0.125 mg PO Q4 PRN (Reason: Abdominal Pain) RF: 0 topiramate [Topamax] 100 mg Tablet 50 mg PO HS RF: 0 diltiazem HCl 120 mg Capsule,Extended Release 24 Hr 120 mg PO DAILY RF: 0 lorazepam 1 mg tablet 1 mg PO Q12H PRN (Reason: Anxiety) RF: 0 Discontinued acetaminophen [Tylenol Extra Strength] 500 mg Tablet 1,000 mg PO Q4 PRN (Reason: Pain) RF: 0 chlorthalidone 25 mg Tablet 25 mg PO DAILY RF: 0 Stand-Alone Forms: Discharge [facility], [facility] Discharge Orders: Discharge Order (Routine); Ordered 02/02/19 Ordered By: Jo Stark Admission Data Admit Date/Time: 01/17/19 13:58 Attending Provider: Jo Stark Admit Provider: Marielos Caal Primary Care Provider: Arpit Osman Other Providers: Westley Oconnor ; Min Coreas ; Debo Carl Gregory M Service: Medical Other Interventions: Discharge Summary Assessment (RN) Last Done: 02/02/19 16:25 DC Date/Time DO NOT enter until pt leaves facility: 02/02/19 18:52
--- NOTE | 2019-02-03 08:55 | Coding Query ---
PRESENT ON ADMISSION QUERY To promote full compliance with coding requirements relating to pateint care, physician participation is requested in all cases of supervisor hydrochloric area uncertainty. Please assist us with the question(s) below: Please place an X within the parenthesis (x). The following diagnosis(es) listed in this patient's medical record require physician assistance to determine if they were present on admission (POA) or not. Please advise for each diagnosis whether it was present on admission, not present on admission, or if it was clinically undetermined. 1. Recurrent Clostridium difficile infection (documented as history of rcr c- diff and having diarrhea on admit and then spiked fever 01/24/19) ( ) Present On Admission ( x) Not Present On Admission ( ) Clinically Undetermined Thank you Nichelle Sauer *Definition of the present on admission (POA)-Present on admission is defined as present at the time the order for inpatient admission occurs. Conditions that develop during an outpatient encounter prior to a written order for inpatient admission (including emergency department, observation, or outpatient surgery) are considered present on admission. VALE
== END 2019-02-02 18:52 | disposition home health service (06) | DRG 552 ==
LOC: 2W 16:34 → ED 16:34 → 2W 19:18 → SUATTDRO 01-17 13:58

== ENCOUNTER 2019-12-16 16:10 | Inpatient (IN) ==
[2019-12-16] MEDS ORDERED: SODIUM CHLORIDE 0.9% 1000ML 1,000 ML IV SCH (17:00)
[2019-12-16 17:11] LABS: Basophils # (auto) 0.01 K/uL (0-0.2); Basophils % (auto) 0.1 %; Eosinophils # (auto) 0.01 K/uL (0-0.5); Eosinophils % (auto) 0.1 %; Hematocrit (blood only) 45.3 % (37-47); Hemoglobin 16.6 g/dL (12.0-16.0); Immature Granulocytes # (auto) 0.06 K/uL (0.00-0.02); Immature Granulocytes % (auto) 0.4 %; Lymphocytes # (auto) 1.13 K/uL (1.2-3.4); Lymphocytes % (auto) 8.1 %; Mean Corpuscular Hgb Conc 36.6 g/dL (32-36); Mean Corpuscular Volume 87.3 fL (80-100); Monocytes # (auto) 1.19 K/uL (0.11-0.59); Monocytes % (auto) 8.5 %; Neutrophils # (auto) 11.61 K/uL (1.4-6.5); Neutrophils % (auto) 82.8 %; Platelet Count 306 K/uL (130-400); RDW Coefficient of Variation 12.2 % (11.5-14.5); RDW Standard Deviation 39.1 fL (36.4-46.3); Red Blood Count 5.19 M/uL (4.2-5.4); White Blood Count 14.01 K/uL (4.8-10.8)
[2019-12-16 17:20] LABS: INR 0.9 (0.9-1.1); Partial Thromboplastin Ratio 0.9; Partial Thromboplastin Time 25.9 Seconds (21.0-31.0)
[2019-12-16 17:25] LABS: Alanine Aminotransferase 15 U/L (12-78); Albumin Level 3.8 gm/dl (3.4-5.0); Aspartate Aminotransferase 13 U/L (15-37); BUN Creatinine Ratio 17.8 (10-20); Blood Urea Nitrogen 18 mg/dl (7-18); Calcium 9.8 mg/dl (8.5-10.1); Carbon Dioxide 26 mmol/L (21-32); Chloride 95 mmol/L (98-107); Est GFR (African American) 67.7; Est GFR (Non-African American) 58.4; Glucose 89 mg/dl (70-99); Magnesium 2.4 mg/dl (1.8-2.4); Potassium 2.2 mmol/L (3.5-5.1); Sodium 132 mmol/L (136-145)
[2019-12-16 17:30] LABS: Appearance Urine Cloudy (Clear); Bacteria Urine Automated Negative (Negative); Bilirubin Urine Negative (Negative); Blood Urine Negative (Negative); Color Urine Dark Yellow; Epithelial Cell Urine Auto >30 /lpf (0-5); Glucose Urine UA Negative (Negative); Ketones Urine Trace (Negative); Leukocyte Esterase Urine 2+ (Negative); Nitrite Urine Negative (Negative); Protein Urine Trace (Negative); RBC Urine Automated 0-4 /hpf (0-4); Specific Gravity Urine 1.036 (1.000-1.030); Urobilinogen Urine Negative (Negative); WBC Urine Automated >30 /hpf (0-5); pH Urine 5.5 (4.5-7.5)
--- NOTE | 2019-12-16 17:30 | Emergency Department Note ---
Impression & Plan Altered mental status, Hypokalemia, Acute dehydration, Acute UTI ED Provider Note NAME: GERA RONDON AGE: 64 SEX: F : 1955 ARRIVES VIA: Ambulance INFORMANT: [ems, nurses] ED PROVIDER(S): [Edwin Valencia MD] CHIEF COMPLAINT: Mental status change HISTORY OF PRESENT ILLNESS: The patient is a 64-year-old female brought by ambulance for change in mental status. She was found by a neighbor in bed confused. There was an empty bottle of tramadol close by. The patient can give me no history. She is confused, she is clearly altered. She basely moans and cries when stimulated. REVIEW OF SYSTEMS: Unobtainable given the mental state. PMHx/PSHx: See Below SOCIAL HISTORY: See Below. PHYSICAL EXAM: GENERAL: Patient is in moderate distress. Skin is quite dirty. HEENT: No acute trauma, normocephalic atraumatic, mucous membranes significantly dry, lips are cracked, no nasal congestion, no scleral icterus. Pupils equal and reactive to light. NECK: No stridor, no adenopathy, no meningismus, trachea is midline. LUNGS: Clear to auscultation bilaterally when listening anterior, no wheeze, no rhonchi, breath sounds equal. HEART: Without murmurs gallops or rubs, regular rate and rhythm. ABDOMEN: Soft, nontender, bowel sounds positive, no hernias, no peritonitis. EXTREMITIES: No cyanosis, mild bilateral pedal edema, full range of motion of all the joints without pain or difficulty, no signs for acute trauma. NEUROLOGIC: Somnolent, quite confused, does move all extremities. Cannot answer any questions with certainty. SKIN: No rash, no jaundice, no diaphoresis. DIFFERENTIAL DIAGNOSIS: Infection, dehydration, metabolic abnormality, alcohol abuse, medication abuse, medication overdose, intracranial bleeding, rhabdomyolysis, UTI, sepsis, hypo/hyperglycemia, electrolyte disturbance, anemia, hypoxia, cardiac sources, intracerebral event, toxicologic, neurologic, as well as other pathologies. EMERGENCY DEPARTMENT COURSE/PROCEDURES: ECG: Indication was mental status change. The EKG shows a sinus rhythm with PVCs. There is significant baseline artifact. There are some inverted T waves inferolaterally. No ST elevation. The ventricular rate is 65. The QTc is 536. There is a borderline left bundle branch block. Compared to an EKG from 15 January 2019, the left bundle branch block is now present. The T wave inversion is now present. Continuous Cardiac Monitoring: An order was placed for continuous cardiac monitoring. The monitor shows a rate of 67 with sinus rhythm with PVCs. Critical Care Note: I have personally spent greater than 46 minutes of critical care time in the direct management of this patient. This includes bedside care, interpretation of diagnostic studies, and testing, discussion with consultants, patient, and family members, and other required patient management activities. This 46 minutes is in excess of all separately billable procedures. MEDICAL DECISION MAKING: There is a moderate leukocytosis at 14,000, this would be consistent with in fection. There is no concerning anemia. No coagulopathy. Renal panel testing shows a low potassium at 2.2. Sodium somewhat low at 132. No kidney failure. No concerning liver enzyme elevation. The patient appeared to be in a euthyroid state. EKG showed a sinus rhythm with PVCs. A left bundle branch block appeared present. The left bundle branch block finding is new compared to previous EKGs. Cardiac enzyme testing x1 is not consistent with acute cardiac injury. Urinalysis was consistent with infection. Lactic acid level was normal making severe sepsis less likely. Urine tox showed opiates, PCP, ecstasy and marijuana. Alcohol level was undetectable. Brain CT showed no acute bleed or mass-effect. Chest from did not show pneumonia or CHF. On exam, the patient was altered, dehydrated, confused. The patient was aggressively managed. She did receive IV saline for hydration. She was given IV cefepime as empiric antibiotic coverage. She received IV potassium for the low potassium value. Patient is currently resting, she remains confused. She is in need of a hospital stay because of her altered mental status. She needs potassium replacement as well. Hopefully, her mental status change is medication induced and will clear with time. At this point, overdose is a consideration. I did attempt to speak with the patient, I do not believe she understood our conversation. I did speak with case management. The on-call hospitalist was consulted. Past Med/Surg History Medical History Bipolar disorder (Chronic) Borderline personality disorder (Chronic) C. 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 Wound abscess (Resolved) Surgical History H/O carpal tunnel repair H/O inguinal hernia repair (Chronic) S/P cataract surgery Status post total hip replacement, left (Chronic) Family History Other Cancer Heart disease Hypertension Lung disease Social History Preferred Language: Tuvaluan Communication Ability: Effective 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 Beliefs That Will Affect Care: None marital status: / Current Living Situation: Alone current occupational status: retired Feels Safe at Home: Yes Smoking Status: Current every day smoker Hx Alcohol Use: No Hx Substance Use: No Allergies Allergies Allergy/AdvReac Type Severity Reaction Status Date / Time cyclobenzaprine Allergy Intermediate RASH AND Verified 11/28/19 12:08 SWELLING fentanyl Allergy Intermediate MAJOR FEET Verified 11/28/19 12:08 SWELLING ketorolac [From Toradol] Allergy Unknown SEE COMMENT Verified 11/28/19 12:08 oxcarbazepine Allergy Unknown UNKNOWN - Verified 11/28/19 12:08 PT DOESN'T REMEMBER risperidone AdvReac Intermediate exhaustion Verified 11/28/19 12:08 clonazepam AdvReac Mild nausea Verified 11/28/19 12:08 Home Meds Home Medications Medication Instructions Recorded Confirmed albuterol sulfate 1 puff INHALATION QID PRN 08/18/18 11/28/19 diclofenac sodium 1 applic TOPICAL QID 08/18/18 11/28/19 duloxetine [Cymbalta] 120 mg PO DAILY 08/18/18 11/28/19 ferrous sulfate 325 mg PO BID 08/18/18 11/28/19 gabapentin 1,200 mg PO TID 08/18/18 11/28/19 levothyroxine [Levoxyl] 50 mcg PO DAILY 08/18/18 11/28/19 losartan 100 mg PO DAILY 08/18/18 11/28/19 metaxalone 800 mg PO QID 08/18/18 11/28/19 omeprazole 20 mg PO BID 08/18/18 11/28/19 potassium chloride [Klor-Con M20] 20 meq PO DAILY 08/18/18 11/28/19 prednisone 5 mg PO DAILY 08/18/18 11/28/19 topiramate [Topamax] 100 mg PO QPM 08/18/18 11/28/19 tramadol 100 mg PO Q6 PRN 08/18/18 11/28/19 diltiazem HCl 120 mg PO DAILY 01/15/19 11/28/19 hyoscyamine sulfate 0.125 mg PO Q4 PRN 01/15/19 11/28/19 lorazepam 1 mg PO Q12H PRN 01/15/19 11/28/19 ondansetron HCl [Zofran] 8 mg PO Q8 PRN 01/15/19 11/28/19 topiramate [Topamax] 50 mg PO HS 01/15/19 11/28/19 acetaminophen 500 mg tablet 500 mg PO QID PRN 11/28/19 11/28/19 acyclovir 5 % topical ointment 1 appln TOP 6XD 11/28/19 11/28/19 chlorthalidone 25 mg tablet 25 mg PO DAILY 11/28/19 11/28/19 fluticasone propionate 50 1 sprays INTNAS DAILY PRN 11/28/19 11/28/19 mcg/actuation nasal spray,suspension lamotrigine 100 mg tablet 200 mg PO BID tab 11/28/19 11/28/19 triamcinolone acetonide 0.1 % 1 appln TOP BID 11/28/19 11/28/19 topical cream Previous Rx's Medication Instructions Recorded calcitriol 0.25 mcg capsule 0.25 mcg PO DAILY #30 cap 12/12/19 Results & Data (ED) Vital Signs Vital Signs - 24 hr 12/16/19 16:00 12/16/19 16:14 12/16/19 16:18 Pulse Rate 60 63 62 Pulse Rate [Bilateral Apical] Pulse Rate from SpO2 Sensor 58 L 59 L Respiratory Rate 14 17 22 Respiratory Effort / Characteristics Non-Labored Spontaneous Respiratory Depth Normal Blood Pressure 149/87 H 138/90 Blood Pressure [Left Arm] Blood Pressure Mean 107 108 Blood Pressure Mean [Left Arm] Blood Pressure Position Lying Pulse Oximetry 89 L 98 92 Oxygen Delivery Method Room Air Oxygen Flow Rate Sepsis Recent Fever Within 48 Hours No Sepsis New/Unexplained Change in Mental Status Yes Sepsis Action Taken by Nursing No Action Required Oxygen Flow Rate - Titration Pulse Oximetry Post Tiitration 12/16/19 16:30 12/16/19 16:40 12/16/19 17:00 Pulse Rate 57 L 61 Pulse Rate [Bilateral Apical] Pulse Rate from SpO2 Sensor 57 L 58 L Respiratory Rate 19 16 Respiratory Effort / Characteristics Respiratory Depth Blood Pressure 149/87 H 150/101 H Blood Pressure [Left Arm] Blood Pressure Mean 98 110 Blood Pressure Mean [Left Arm] Blood Pressure Position Pulse Oximetry 89 L 98 Oxygen Delivery Method Room Air Oxygen Flow Rate 0 Sepsis Recent Fever Within 48 Hours Sepsis New/Unexplained Change in Mental Status Sepsis Action Taken by Nursing Oxygen Flow Rate - Titration 3 Pulse Oximetry Post Tiitration 96 12/16/19 17:22 12/16/19 17:30 12/16/19 17:31 Pulse Rate 66 62 Pulse Rate [Bilateral Apical] Pulse Rate from SpO2 Sensor 57 L 56 L Respiratory Rate 14 14 Respiratory Effort / Characteristics Respiratory Depth Blood Pressure 152/80 H Blood Pressure [Left Arm] Blood Pressure Mean 93 Blood Pressure Mean [Left Arm] Blood Pressure Position Pulse Oximetry 95 98 Oxygen Delivery Method Nasal Cannula Oxygen Flow Rate 3 Sepsis Recent Fever Within 48 Hours Sepsis New/Unexplained Change in Mental Status Sepsis Action Taken by Nursing Oxygen Flow Rate - Titration Pulse Oximetry Post Tiitration 12/16/19 18:03 12/16/19 18:07 12/16/19 18:30 Pulse Rate 95 H 67 64 Pulse Rate [Bilateral Apical] Pulse Rate from SpO2 Sensor 60 64 Respiratory Rate 22 17 19 Respiratory Effort / Characteristics Respiratory Depth Blood Pressure 156/97 H 167/100 H Blood Pressure [Left Arm] Blood Pressure Mean 114 109 Blood Pressure Mean [Left Arm] Blood Pressure Position Pulse Oximetry Oxygen Delivery Method Oxygen Flow Rate Sepsis Recent Fever Within 48 Hours Sepsis New/Unexplained Change in Mental Status Sepsis Action Taken by Nursing Oxygen Flow Rate - Titration Pulse Oximetry Post Tiitration 12/16/19 19:00 12/16/19 19:01 12/16/19 19:08 Pulse Rate 68 63 65 Pulse Rate [Bilateral Apical] Pulse Rate from SpO2 Sensor Respiratory Rate 18 21 22 Respiratory Effort / Characteristics Respiratory Depth Blood Pressure 172/106 H 170/100 H Blood Pressure [Left Arm] Blood Pressure Mean 134 106 Blood Pressure Mean [Left Arm] Blood Pressure Position Pulse Oximetry Oxygen Delivery Method Oxygen Flow Rate Sepsis Recent Fever Within 48 Hours Sepsis New/Unexplained Change in Mental Status Sepsis Action Taken by Nursing Oxygen Flow Rate - Titration Pulse Oximetry Post Tiitration 12/16/19 19:10 Pulse Rate Pulse Rate [Bilateral Apical] 61 Pulse Rate from SpO2 Sensor Respiratory Rate 20 Respiratory Effort / Characteristics Respiratory Depth Blood Pressure Blood Pressure [Left Arm] 170/100 H Blood Pressure Mean Blood Pressure Mean [Left Arm] 123 Blood Pressure Position Pulse Oximetry 96 Oxygen Delivery Method Room Air Oxygen Flow Rate Sepsis Recent Fever Within 48 Hours Sepsis New/Unexplained Change in Mental Status Sepsis Action Taken by Nursing Oxygen Flow Rate - Titration Pulse Oximetry Post Tiitration Home Medications Current Medication List: was personally reviewed by me Laboratory Data Attestation: I reviewed the patient's lab results. Result diagrams: 12/16/19 16:19 12/16/19 16:19 Lab Results 12/16/19 12/16/19 12/16/19 Range/Units 16:19 16:19 16:19 WBC 14.01 H (4.8-10.8) K/uL RBC 5.19 (4.2-5.4) M/uL Hgb 16.6 H (12.0-16.0) g/dL Hct 45.3 (37-47) % MCV 87.3 (80-100) fL MCH 32.0 (25-34) pg MCHC 36.6 H (32-36) g/dL RDW Std Deviation 39.1 (36.4-46.3) fL RDW Coeff of [place] 12.2 (11.5-14.5) % Plt Count 306 (130-400) K/uL MPV 9.0 (7.4-10.4) fL Immature Gran % (Auto) 0.4 % Neut % (Auto) 82.8 % Lymph % (Auto) 8.1 % [place] % (Auto) 8.5 % Eos % (Auto) 0.1 % Baso % (Auto) 0.1 % Immature Gran # (Auto) 0.06 H (0.00-0.02) K/uL Neut # (Auto) 11.61 H (1.4-6.5) K/uL Lymph # (Auto) 1.13 L (1.2-3.4) K/uL [place] # (Auto) 1.19 H (0.11-0.59) K/uL Eos # (Auto) 0.01 (0-0.5) K/uL Baso # (Auto) 0.01 (0-0.2) K/uL PT 10.0 (9.0-12.0) Seconds INR 0.9 (0.9-1.1) APTT 25.9 (21.0-31.0) Seconds PTT Ratio 0.9 Sodium 132 L (136-145) mmol/L Potassium 2.2 L* (3.5-5.1) mmol/L Chloride 95 L (98-107) mmol/L Carbon Dioxide 26 (21-32) mmol/L Anion Gap 11.0 (3-11) BUN 18 (7-18) mg/dl Creatinine 1.01 (0.6-1.2) mg/dl Est Cr Clr Drug Dosing Not Reportable Est GFR ( Amer) 67.7 Est GFR (Non-Af Amer) 58.4 BUN/Creatinine Ratio 17.8 (10-20) Glucose 89 (70-99) mg/dl Lactate (0.4-2.0) mmol/L Calcium 9.8 (8.5-10.1) mg/dl Magnesium 2.4 (1.8-2.4) mg/dl Total Bilirubin 0.5 (0.2-1) mg/dl AST 13 L (15-37) U/L ALT 15 (12-78) U/L Alkaline Phosphatase 94 (45-117) U/L Total Creatine Kinase 146 (26-192) U/L Troponin I < 0.015 (0-0.045) ng/ml Total Protein 7.4 (6.4-8.2) gm/dl Albumin 3.8 (3.4-5.0) gm/dl Globulin 3.6 (2.5-4.0) gm/dl Albumin/Globulin Ratio 1.1 (0.9-2) TSH 0.518 (0.300-4.500) uIu/ml Urine Color Urine Appearance (Clear) Urine pH (4.5-7.5) Ur Specific [place] (1.000-1.030) Urine Protein (Negative) Urine Glucose (UA) (Negative) Urine Ketones (Negative) Urine Blood (Negative) Urine Nitrite (Negative) Urine Bilirubin (Negative) Urine Urobilinogen (Negative) Ur Leukocyte Esterase (Negative) Urine WBC (Auto) (0-5) /hpf Urine RBC (Auto) (0-4) /hpf U Hyaline Cast (Auto) (0-5) /lpf U Epithel Cells (Auto) (0-5) /lpf Urine Bacteria (Auto) (Negative) Urine Yeast Salicylates (2.8-20) mg/dl Urine Opiates Screen (Neg) U Codeine Confrm GC/MS Ur Morphine (GC/MS) Ur Hydrocodone (GC/MS) Ur Norhydrocodone Ur Noroxycodone Urine Oxycodone (GC/MS) U Oxymorphone GC/MS Ur Methadone, Qual (Neg) Ur Hydromorphone (GC/MS) Acetaminophen (10-30) ug/ml Urine Barbiturates (Neg) Ur Phencyclidine (PCP) (Neg) Urine PCP Confirm U Amphetamin/Meth Scrn (Neg) Urine MDEA MDMA (Ecstasy) Screen (Neg) MDMA Urine MDMA U Benzodiazepines Scrn (Neg) Ur Cocaine Metabolite (Neg) U Marijuana (THC) Screen (Neg) U Marijuana THC Carboxy Drug Screen Comment Ethyl Alcohol mg/dL (0-3) mg/dl 12/16/19 12/16/19 12/16/19 Range/Units 16:30 16:30 16:30 WBC (4.8-10.8) K/uL RBC (4.2-5.4) M/uL Hgb (12.0-16.0) g/dL Hct (37-47) % MCV (80-100) fL MCH (25-34) pg MCHC (32-36) g/dL RDW Std Deviation (36.4-46.3) fL RDW Coeff of [place] (11.5-14.5) % Plt Count (130-400) K/uL MPV (7.4-10.4) fL Immature Gran % (Auto) % Neut % (Auto) % Lymph % (Auto) % [place] % (Auto) % Eos % (Auto) % Baso % (Auto) % Immature Gran # (Auto) (0.00-0.02) K/uL Neut # (Auto) (1.4-6.5) K/uL Lymph # (Auto) (1.2-3.4) K/uL [place] # (Auto) (0.11-0.59) K/uL Eos # (Auto) (0-0.5) K/uL Baso # (Auto) (0-0.2) K/uL PT (9.0-12.0) Seconds INR (0.9-1.1) APTT (21.0-31.0) Seconds PTT Ratio Sodium (136-145) mmol/L Potassium (3.5-5.1) mmol/L Chloride (98-107) mmol/L Carbon Dioxide (21-32) mmol/L Anion Gap (3-11) BUN (7-18) mg/dl Creatinine (0.6-1.2) mg/dl Est Cr Clr Drug Dosing Est GFR ( Amer) Est GFR (Non-Af Amer) BUN/Creatinine Ratio (10-20) Glucose (70-99) mg/dl Lactate (0.4-2.0) mmol/L Calcium (8.5-10.1) mg/dl Magnesium (1.8-2.4) mg/dl Total Bilirubin (0.2-1) mg/dl AST (15-37) U/L ALT (12-78) U/L Alkaline Phosphatase (45-117) U/L Total Creatine Kinase (26-192) U/L Troponin I (0-0.045) ng/ml Total Protein (6.4-8.2) gm/dl Albumin (3.4-5.0) gm/dl Globulin (2.5-4.0) gm/dl Albumin/Globulin Ratio (0.9-2) TSH (0.300-4.500) uIu/ml Urine Color Dark Yellow Urine Appearance Cloudy A (Clear) Urine pH 5.5 (4.5-7.5) Ur Specific [place] 1.036 H (1.000-1.030) Urine Protein Trace H (Negative) Urine Glucose (UA) Negative (Negative) Urine Ketones Trace H (Negative) Urine Blood Negative (Negative) Urine Nitrite Negative (Negative) Urine Bilirubin Negative (Negative) Urine Urobilinogen Negative (Negative) Ur Leukocyte Esterase 2+ H (Negative) Urine WBC (Auto) >30 H (0-5) /hpf Urine RBC (Auto) 0-4 (0-4) /hpf U Hyaline Cast (Auto) 10-30 H (0-5) /lpf U Epithel Cells (Auto) >30 H (0-5) /lpf Urine Bacteria (Auto) Negative (Negative) Urine Yeast Not Reportable Salicylates (2.8-20) mg/dl Urine Opiates Screen Pos H (Neg) U Codeine Confrm GC/MS Cancelled Ur Morphine (GC/MS) Cancelled Ur Hydrocodone (GC/MS) Cancelled Ur Norhydrocodone Cancelled Ur Noroxycodone Cancelled Urine Oxycodone (GC/MS) Cancelled U Oxymorphone GC/MS Cancelled Ur Methadone, Qual Neg (Neg) Ur Hydromorphone (GC/MS) Cancelled Acetaminophen (10-30) ug/ml Urine Barbiturates Neg (Neg) Ur Phencyclidine (PCP) Pos H (Neg) Urine PCP Confirm Cancelled U Amphetamin/Meth Scrn Neg (Neg) Urine MDEA Cancelled MDMA (Ecstasy) Screen Pos H (Neg) MDMA Cancelled Urine MDMA Cancelled U Benzodiazepines Scrn Neg (Neg) Ur Cocaine Metabolite Neg (Neg) U Marijuana (THC) Screen Pos H (Neg) U Marijuana THC Carboxy Cancelled Drug Screen Comment Cancelled Ethyl Alcohol mg/dL (0-3) mg/dl 12/16/19 12/16/19 12/16/19 Range/Units 17:39 17:39 18:05 WBC (4.8-10.8) K/uL RBC (4.2-5.4) M/uL Hgb (12.0-16.0) g/dL Hct (37-47) % MCV (80-100) fL MCH (25-34) pg MCHC (32-36) g/dL RDW Std Deviation (36.4-46.3) fL RDW Coeff of [place] (11.5-14.5) % Plt Count (130-400) K/uL MPV (7.4-10.4) fL Immature Gran % (Auto) % Neut % (Auto) % Lymph % (Auto) % [place] % (Auto) % Eos % (Auto) % Baso % (Auto) % Immature Gran # (Auto) (0.00-0.02) K/uL Neut # (Auto) (1.4-6.5) K/uL Lymph # (Auto) (1.2-3.4) K/uL [place] # (Auto) (0.11-0.59) K/uL Eos # (Auto) (0-0.5) K/uL Baso # (Auto) (0-0.2) K/uL PT (9.0-12.0) Seconds INR (0.9-1.1) APTT (21.0-31.0) Seconds PTT Ratio Sodium (136-145) mmol/L Potassium (3.5-5.1) mmol/L Chloride (98-107) mmol/L Carbon Dioxide (21-32) mmol/L Anion Gap (3-11) BUN (7-18) mg/dl Creatinine (0.6-1.2) mg/dl Est Cr Clr Drug Dosing Est GFR ( Amer) Est GFR (Non-Af Amer) BUN/Creatinine Ratio (10-20) Glucose (70-99) mg/dl Lactate 1.2 (0.4-2.0) mmol/L Calcium (8.5-10.1) mg/dl Magnesium (1.8-2.4) mg/dl Total Bilirubin (0.2-1) mg/dl AST (15-37) U/L ALT (12-78) U/L Alkaline Phosphatase (45-117) U/L Total Creatine Kinase (26-192) U/L Troponin I (0-0.045) ng/ml Total Protein (6.4-8.2) gm/dl Albumin (3.4-5.0) gm/dl Globulin (2.5-4.0) gm/dl Albumin/Globulin Ratio (0.9-2) TSH (0.300-4.500) uIu/ml Urine Color Urine Appearance (Clear) Urine pH (4.5-7.5) Ur Specific [place] (1.000-1.030) Urine Protein (Negative) Urine Glucose (UA) (Negative) Urine Ketones (Negative) Urine Blood (Negative) Urine Nitrite (Negative) Urine Bilirubin (Negative) Urine Urobilinogen (Negative) Ur Leukocyte Esterase (Negative) Urine WBC (Auto) (0-5) /hpf Urine RBC (Auto) (0-4) /hpf U Hyaline Cast (Auto) (0-5) /lpf U Epithel Cells (Auto) (0-5) /lpf Urine Bacteria (Auto) (Negative) Urine Yeast Salicylates < 1.7 L (2.8-20) mg/dl Urine Opiates Screen (Neg) U Codeine Confrm GC/MS Ur Morphine (GC/MS) Ur Hydrocodone (GC/MS) Ur Norhydrocodone Ur Noroxycodone Urine Oxycodone (GC/MS) U Oxymorphone GC/MS Ur Methadone, Qual (Neg) Ur Hydromorphone (GC/MS) Acetaminophen 7 L (10-30) ug/ml Urine Barbiturates (Neg) Ur Phencyclidine (PCP) (Neg) Urine PCP Confirm U Amphetamin/Meth Scrn (Neg) Urine MDEA MDMA (Ecstasy) Screen (Neg) MDMA Urine MDMA U Benzodiazepines Scrn (Neg) Ur Cocaine Metabolite (Neg) U Marijuana (THC) Screen (Neg) U Marijuana THC Carboxy Drug Screen Comment Ethyl Alcohol mg/dL < 3.0 (0-3) mg/dl 12/16/19 Range/Units 19:21 WBC (4.8-10.8) K/uL RBC (4.2-5.4) M/uL Hgb (12.0-16.0) g/dL Hct (37-47) % MCV (80-100) fL MCH (25-34) pg MCHC (32-36) g/dL RDW Std Deviation (36.4-46.3) fL RDW Coeff of [place] (11.5-14.5) % Plt Count (130-400) K/uL MPV (7.4-10.4) fL Immature Gran % (Auto) % Neut % (Auto) % Lymph % (Auto) % [place] % (Auto) % Eos % (Auto) % Baso % (Auto) % Immature Gran # (Auto) (0.00-0.02) K/uL Neut # (Auto) (1.4-6.5) K/uL Lymph # (Auto) (1.2-3.4) K/uL [place] # (Auto) (0.11-0.59) K/uL Eos # (Auto) (0-0.5) K/uL Baso # (Auto) (0-0.2) K/uL PT (9.0-12.0) Seconds INR (0.9-1.1) APTT (21.0-31.0) Seconds PTT Ratio Sodium (136-145) mmol/L Potassium (3.5-5.1) mmol/L Chloride (98-107) mmol/L Carbon Dioxide (21-32) mmol/L Anion Gap (3-11) BUN (7-18) mg/dl Creatinine (0.6-1.2) mg/dl Est Cr Clr Drug Dosing Est GFR ( Amer) Est GFR (Non-Af Amer) BUN/Creatinine Ratio (10-20) Glucose (70-99) mg/dl Lactate 1.5 (0.4-2.0) mmol/L Calcium (8.5-10.1) mg/dl Magnesium (1.8-2.4) mg/dl Total Bilirubin (0.2-1) mg/dl AST (15-37) U/L ALT (12-78) U/L Alkaline Phosphatase (45-117) U/L Total Creatine Kinase (26-192) U/L Troponin I (0-0.045) ng/ml Total Protein (6.4-8.2) gm/dl Albumin (3.4-5.0) gm/dl Globulin (2.5-4.0) gm/dl Albumin/Globulin Ratio (0.9-2) TSH (0.300-4.500) uIu/ml Urine Color Urine Appearance (Clear) Urine pH (4.5-7.5) Ur Specific [place] (1.000-1.030) Urine Protein (Negative) Urine Glucose (UA) (Negative) Urine Ketones (Negative) Urine Blood (Negative) Urine Nitrite (Negative) Urine Bilirubin (Negative) Urine Urobilinogen (Negative) Ur Leukocyte Esterase (Negative) Urine WBC (Auto) (0-5) /hpf Urine RBC (Auto) (0-4) /hpf U Hyaline Cast (Auto) (0-5) /lpf U Epithel Cells (Auto) (0-5) /lpf Urine Bacteria (Auto) (Negative) Urine Yeast Salicylates (2.8-20) mg/dl Urine Opiates Screen (Neg) U Codeine Confrm GC/MS Ur Morphine (GC/MS) Ur Hydrocodone (GC/MS) Ur Norhydrocodone Ur Noroxycodone Urine Oxycodone (GC/MS) U Oxymorphone GC/MS Ur Methadone, Qual (Neg) Ur Hydromorphone (GC/MS) Acetaminophen (10-30) ug/ml Urine Barbiturates (Neg) Ur Phencyclidine (PCP) (Neg) Urine PCP Confirm U Amphetamin/Meth Scrn (Neg) Urine MDEA MDMA (Ecstasy) Screen (Neg) MDMA Urine MDMA U Benzodiazepines Scrn (Neg) Ur Cocaine Metabolite (Neg) U Marijuana (THC) Screen (Neg) U Marijuana THC Carboxy Drug Screen Comment Ethyl Alcohol mg/dL (0-3) mg/dl Administered Medications Discontinued Medications Sodium Chloride (Nss 1000ml) 1,000 mls @ 999 mls/hr IV .Q1H1M IVAN Stop: 12/16/19 18:00 Last Infusion: 12/16/19 18:29 Dose: 0 mls/hr Documented by: [id number] Admin: 12/16/19 17:12 Dose: 999 mls/hr Documented by: [id number] Potassium Chloride (K Jamel / Wtr) 10 meq in 100 mls @ 100 mls/hr IV Q1H IVAN Stop: 12/16/19 19:29 Last Admin: 12/16/19 19:06 Dose: 100 mls/hr Documented by: [id number] Infusion: 12/16/19 19:06 Dose: 100 mls/hr Documented by: [id number] Admin: 12/16/19 18:07 Dose: 100 mls/hr Documented by: [id number] Cefepime HCl (Maxipime) 2,000 mg in 20 mls @ 5 mls/min IV NOW STA; Protocol Stop: 12/16/19 17:48 Last Admin: 12/16/19 18:07 Dose: 5 mls/min Documented by: [id number] Sodium Chloride (Nss 1000ml) 1,000 mls @ 999 mls/hr IV .Q1H1M ONE Stop: 12/16/19 19:49 Last Admin: 12/16/19 19:08 Dose: 999 mls/hr Documented by: [id number] Imaging Data Radiologist's Impression: XR chest 1V portable CLINICAL HISTORY: weakness COMPARISON STUDY: 01/27/2019 FINDINGS: The heart is normal in size. There is aortic tortuosity. There is no failure. There is no focal pulmonary consolidation. There are no pleural effusions. Postsurgical changes are present within the thoracolumbar spine. Degenerative changes are present within the shoulders.[ IMPRESSION: No active disease in the chest. CT head/brain wo con CLINICAL HISTORY: Confusion COMPARISON STUDY: 05/24/2017 TECHNIQUE: Axial CT of the brain is performed from the vertex to the skull base. IV contrast was not administered for this examination. A dose lowering technique was utilized adhering to the principles of ALARA. CT DOSE: 614.27 mGy.cm FINDINGS: No intra or extra-axial mass lesions are visualized. There is no CT evidence of acute cortical infarction. There is no evidence of midline shift. There is no acute hemorrhage. No calvarial fractures are visualized. There are minimal white matter hypodensities likely on a small vessel basis. There is no evidence of pathologic ventricular dilatation. There is no evidence of acute sinusitis IMPRESSION: No acute intracranial findings Blood Pressure Blood Pressure Findings: Elevated blood pressure Blood Pressure Disposition: further management by hospitalist Discharge Plan Visit Data Chief Complaint: Altered Mental Status Stated Complaint: [facility] ED Provider: Edwin Valencia Discharge Problem: Altered mental status, Hypokalemia, Acute dehydration, Acute UTI Patient Disposition: Admitted As Inpatient Condition: Fair Forms Stand Alone Forms: [facility] Prescriptions Prescriptions: No Action calcitriol 0.25 mcg capsule 0.25 mcg PO DAILY Qty: 30 RF: 0 chlorthalidone 25 mg tablet 25 mg PO DAILY RF: 0 triamcinolone acetonide 0.1 % cream 1 appln TOP BID RF: 0 fluticasone propionate 50 mcg/actuation spray,suspension 1 sprays INTNAS DAILY PRNRF: 0 acyclovir 5 % ointment 1 appln TOP 6XD RF: 0 acetaminophen [Tylenol Extra Strength] 500 mg tablet 500 mg PO QID PRNRF: 0 prednisone 5 mg Tablet 5 mg PO DAILY RF: 0 tramadol 50 mg Tablet 100 mg PO Q6 PRN (Reason: Pain) RF: 0 potassium chloride [Klor-Con M20] 20 mEq Tablet,Er Particles/Crystals 20 meq PO DAILY RF: 0 levothyroxine [Levoxyl] 50 mcg Tablet 50 mcg PO DAILY RF: 0 ferrous sulfate 325 mg (65 mg iron) Tablet 325 mg PO BID RF: 0 gabapentin 300 mg Capsule 1,200 mg PO TID RF: 0 omeprazole 20 mg Capsule,Delayed Release(Dr/Ec) 20 mg PO BID RF: 0 albuterol sulfate 90 mcg/actuation Hfa Aerosol Inhaler 1 puff INHALATION QID PRN (Reason: cough, wheezing) RF: 0 topiramate [Topamax] 100 mg Tablet 100 mg PO QPM RF: 0 losartan 100 mg Tablet 100 mg PO DAILY RF: 0 metaxalone 800 mg Tablet 800 mg PO QID RF: 0 duloxetine [Cymbalta] 60 mg Capsule,Delayed Release(Dr/Ec) 120 mg PO DAILY RF: 0 diclofenac sodium 1 % Gel 1 applic TOPICAL QID RF: 0 lamotrigine [Lamictal] 100 mg tablet 200 mg PO BID RF: 0 ondansetron HCl [Zofran] 8 mg Tablet 8 mg PO Q8 PRN (Reason: Nausea And Vomiting) RF: 0 hyoscyamine sulfate 0.125 mg Tablet 0.125 mg PO Q4 PRN (Reason: Abdominal Pain) RF: 0 topiramate [Topamax] 100 mg Tablet 50 mg PO HS RF: 0 diltiazem HCl 120 mg Capsule,Extended Release 24 Hr 120 mg PO DAILY RF: 0 lorazepam 1 mg tablet 1 mg PO Q12H PRN (Reason: Anxiety) RF: 0 Referrals Referrals: Arpit Osman MD [Primary Care Provider] - Discharge Problem: Altered mental status Qualifiers: Altered mental status type: delirium Qualified Code(s): R41.0 - Disorientation, unspecified
[2019-12-16 17:34] LABS: Albumin Globulin Ratio 1.1 (0.9-2); Alkaline Phosphatase 94 U/L (45-117); Bilirubin,Total 0.5 mg/dl (0.2-1); Creatine Kinase 146 U/L (26-192); Globulin 3.6 gm/dl (2.5-4.0); Thyroid Stimulating Hormone 0.518 uIu/ml (0.300-4.500); Total Protein 7.4 gm/dl (6.4-8.2); Troponin I < 0.015 ng/ml (0-0.045)
[2019-12-16] MEDS ORDERED: CEFEPIME 2,000 MG/20 ML VIAL IV STA (17:45)
--- NOTE | 2019-12-16 17:59 | CT Scan Report ---
CT head/brain wo con CLINICAL HISTORY: Confusion COMPARISON STUDY: 05/24/2017 TECHNIQUE: Axial CT of the brain is performed from the vertex to the skull base. IV contrast was not administered for this examination. A dose lowering technique was utilized adhering to the principles of ALARA. CT DOSE: 614.27 mGy.cm FINDINGS: No intra or extra-axial mass lesions are visualized. There is no CT evidence of acute cortical infarc tion. There is no evidence of midline shift. There is no acute hemorrhage. No calvarial fractures ar e visualized. There are minimal white matter hypodensities likely on a small vessel basis. There is no evidence of pathologic ventricular dilatation. There is no evidence of acute sinusitis IMPRESSION: No acute intracranial findings ACT 112: Negative or not required by law. Electronically signed by: Tai Ramirez M.D. 12/16/2019 5:58 PM
--- NOTE | 2019-12-16 18:00 | XRay Report ---
XR chest 1V portable CLINICAL HISTORY: weakness COMPARISON STUDY: 01/27/2019 FINDINGS: The heart is normal in size. There is aortic tortuosity. There is no failure. There is no f ocal pulmonary consolidation. There are no pleural effusions. Postsurgical changes are present within the thoracolumbar spine. Degenerative changes are present within the shoulders.[ IMPRESSION: No active disease in the chest. ACT 112: Negative or not required by law. Electronically signed by: Tai Ramirez M.D. 12/16/2019 5:59 PM
[2019-12-16] MEDS: POTASSIUM CHLORIDE / WTR 10 MEQ/100 ML PLCT IV SCH ×2 (18:07→19:06)
[2019-12-16 18:14] LABS: Amphetamines+Metham, Urine Neg (Neg); Barbiturates, Urine Neg (Neg); Benzodiazepine, Urine Neg (Neg); Cocaine, Urine Neg (Neg); MDMA (Ecstacy), Urine Pos (Neg); Methadone, Urine Neg (Neg); Opiate, Urine Pos (Neg); Phencyclidine, Urine Pos (Neg)
[2019-12-16] MEDS ORDERED: SODIUM CHLORIDE 0.9% 1000ML 1,000 ML IV ONE (18:49)
[2019-12-16 18:55] LABS: Acetaminophen 7 ug/ml (10-30); Salicylate < 1.7 mg/dl (2.8-20)
--- NOTE | 2019-12-16 19:18 | History & Physical Report ---
Date of Service December 16, 2019 Assessment & Plan (1) Drug overdose: Admitted with altered mental status/found unresponsive in her apartment with empty bottle of tramadol patient PDMP record checked : Prescription filled on 11/29/2019 : tramadol 50 mg tablets # 198 tablets Prescription filled on 11/13/2019 : tramadol 50 mg tablet quantity # 42 tablets Urine tox screen positive for ecstasy/PCP/opiates/marijuana Concern for accidental versus intentional drug overdose-unable to get any information due to altered mental status Admit to telemetry, continue supportive care with IV fluids Hold all anti-psychiatric medications Suicide precaution Psych evaluation requested leukocytosis : WBC 14 K possible due to dehydration cont IVF need to R/O underlying infectious process positive UA -Urine clody , + Ketone , + leukocyte esterase ordered for urine culture ordered IV rocephin (2) Altered mental status: admitted with lethergy , altered mental status Metabolic encephalopathy due to drug overdose HTN : Blood pressure elevated possible secondary to agitation Also doubt patient has been taking any of her regular meds at home Unsafe to order/resume oral antihypertensives secondary to patient's altered mental status, high aspiration risk Ordered for IV hydralazine as needed Home oral antihypertensives should be resumed once patient's mental status improves to baseline HYPOTHYROIDISM : Hold oral levothyroxine secondary to altered mental status/n.p.o. (3) Hypokalemia: due to dehydration , poor PO intake ordered for replacement follow electrolytes closely Prolong Qtc: Qtc > 500 hold /avoid all meds which can cause Qtc prolongation -no Zoftan , Haldol , hold SSRI , antiphyschotic meds daily EKG /tele monitoring monitor BMP , ordered for daily 20mq potassium and Mg supplement Needs K > 4 , Mg > 2 to prevent cardiac arrythmia Hx of chronic C diff : ordered stool for C diff (4) Bipolar disorder: hold all Psychiatric meds for drug overdose unable to confirm accidental vs Intentional overdose -given pt's altered mental status Psych consult requested Failure to thrive/self-neglect: History of bipolar mood disorder, patient appears to be severely dehydrated with evidence of self neglect Social service consult requested for safe discharge planning CODE STATUS : FULL CODE DVT PROPHYLAXIS Sub q heparin DISPOSITION : admit to Medical tele Patient will need psychiatric evaluation prior to discharge History of Present Illness Chief Complaint: Unresponsive, drug overdose Primary Care Provider: Arpit Osman MD This is a 64-year-old female point medical history of bipolar mood disorder, depression, chronic back pain Brought to ER as her friend found her in her apartment unresponsive Patient has been taking multiple anti-psychiatric medications and pain medicat ions Empty bottle of tramadol was found: It was filled on 11/13/2019 Patient has been living alone with no friends or family support ER unable to verify how long patient has been unresponsive, patient appears to be very disheveled, dirty, with very dehydrated oral mucosa, crusted lips Appears to be failure to thrive Lab finding :leukocytosis WBC 14 K, elevated hematocrit 45.3 /hemoglobin 16.6 suggestive of dehydration/hemoconcentration Sodium 132, potassium 2.2 Unable to obtain any history from the patient secondary to altered mental status, patient wakes up to voice, starts to scream, not able to follow any command Urine tox screen positive for opiates/PCP/ecstasy/marijuana Allergies Allergy/AdvReac Type Severity Reaction Status Date / Time cyclobenzaprine Allergy Intermediate RASH AND Verified 11/28/19 12:08 SWELLING fentanyl Allergy Intermediate MAJOR FEET Verified 11/28/19 12:08 SWELLING ketorolac [From Toradol] Allergy Unknown SEE COMMENT Verified 11/28/19 12:08 oxcarbazepine Allergy Unknown UNKNOWN - Verified 11/28/19 12:08 PT DOESN'T REMEMBER risperidone AdvReac Intermediate exhaustion Verified 11/28/19 12:08 clonazepam AdvReac Mild nausea Verified 11/28/19 12:08 Home Medications Home Medications Medication Instructions Recorded Confirmed Type albuterol sulfate 1 puff INHALATION QID PRN 08/18/18 11/28/19 History diclofenac sodium 1 applic TOPICAL QID 08/18/18 11/28/19 History duloxetine [Cymbalta] 120 mg PO DAILY 08/18/18 11/28/19 History ferrous sulfate 325 mg PO BID 08/18/18 11/28/19 History gabapentin 1,200 mg PO TID 08/18/18 11/28/19 History levothyroxine [Levoxyl] 50 mcg PO DAILY 08/18/18 11/28/19 History losartan 100 mg PO DAILY 08/18/18 11/28/19 History metaxalone 800 mg PO QID 08/18/18 11/28/19 History omeprazole 20 mg PO BID 08/18/18 11/28/19 History potassium chloride [Klor-Con M20] 20 meq PO DAILY 08/18/18 11/28/19 History prednisone 5 mg PO DAILY 08/18/18 11/28/19 History topiramate [Topamax] 100 mg PO QPM 08/18/18 11/28/19 History tramadol 100 mg PO Q6 PRN 08/18/18 11/28/19 History diltiazem HCl 120 mg PO DAILY 01/15/19 11/28/19 History hyoscyamine sulfate 0.125 mg PO Q4 PRN 01/15/19 11/28/19 History lorazepam 1 mg PO Q12H PRN 01/15/19 11/28/19 History ondansetron HCl [Zofran] 8 mg PO Q8 PRN 01/15/19 11/28/19 History topiramate [Topamax] 50 mg PO HS 01/15/19 11/28/19 History acetaminophen 500 mg tablet 500 mg PO QID PRN 11/28/19 11/28/19 History acyclovir 5 % topical ointment 1 appln TOP 6XD 11/28/19 11/28/19 History chlorthalidone 25 mg tablet 25 mg PO DAILY 11/28/19 11/28/19 History fluticasone propionate 50 1 sprays INTNAS DAILY PRN 11/28/19 11/28/19 History mcg/actuation nasal spray,suspension lamotrigine 100 mg tablet 200 mg PO BID tab 11/28/19 11/28/19 History triamcinolone acetonide 0.1 % 1 appln TOP BID 11/28/19 11/28/19 History topical cream calcitriol 0.25 mcg capsule 0.25 mcg PO DAILY #30 cap 12/12/19 Rx Past Med/Surg History Medical History Bipolar disorder (Chronic) Borderline personality disorder (Chronic) C. 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 Wound abscess (Resolved) Surgical History H/O carpal tunnel repair H/O inguinal hernia repair (Chronic) S/P cataract surgery Status post total hip replacement, left (Chronic) Family History Other Cancer Heart disease Hypertension Lung disease Social History Preferred Language: Belarusian Communication Ability: Effective Blending [employer] Operator Required: No Beliefs That Will Affect Care: None marital status: / Current Living Situation: Alone current occupational status: retired Feels Safe at Home: Yes Smoking Status: Current every day smoker Hx Alcohol Use: No Hx Substance Use: No Review of Systems Review of Systems: Unobtainable due to cognitive status (Confusion/altered mental status) Physical Exam Constitutional: + altered mental status Very disheveled, dry oral mucous membrane, confused, Eyes: + anicteric sclerae ENMT: Mouth: + lip abnormality (Dry/cracked with), + oral mucosal abnormality (Dry) and + tongue abnormality Extremely dry oral mucous membrane with black crust on lips, dry tongue with black crust present Respiratory: normal respiratory effort, lungs clear to auscultation Gastrointestinal (Abdomen): Percussion/Palpation: abdomen soft; abdomen nontender Skin: Very poor skin turgor, Psychiatric: Confused, not oriented to place person, opens eyes with verbal stimuli, gets irritated easily, screaming not able to follow any commands or give any information Results & Data Results & Data ([facility]) Vital Signs (Past 12 Hours) Vital Signs Pulse Pulse Resp BP BP Pulse Ox 12/16/19 19:10 61 20 170/100 H 96 12/16/19 18:07 67 17 156/97 H 12/16/19 18:03 95 H 22 12/16/19 17:31 62 14 152/80 H 98 12/16/19 17:30 66 14 12/16/19 17:22 95 12/16/19 17:00 61 16 150/101 H 98 12/16/19 16:40 89 L 12/16/19 16:30 57 L 19 149/87 H 12/16/19 16:18 62 22 92 12/16/19 16:14 63 17 138/90 98 12/16/19 16:00 60 14 149/87 H [address] head noncontrast: No acute intracranial finding. Chest x-ray: Portable, no acute finding (1) Drug overdose Encounter type: initial encounter Injury intent: accidental or unintentional Qualified Code(s): T50.901A - Poisoning by unspecified drugs, medicaments and biological substances, accidental (unintentional), initial encounter (2) Altered mental status Altered mental status type: delirium Qualified Code(s): R41.0 - Disorientatio n, unspecified
[2019-12-16] MEDS ORDERED: NITROGLYCERIN SL 0.4 MG/TAB TAB SL PRN (21:26)
[2019-12-16] MEDS ORDERED: MAGNESIUM HYDROXIDE SUSP 30 ML UDC PO PRN (21:26)
[2019-12-16] MEDS ORDERED: POLYETHYLENE (MIRALAX) 17 GM PACK PO PRN (21:26)
[2019-12-16] MEDS ORDERED: ALUMINUM/MAGNESIUM SUSP 30 ML UDC PO PRN (21:26)
[2019-12-16] MEDS ORDERED: ACETAMINOPHEN 325 MG TAB PO PRN (21:26)
[2019-12-16 22:49] LABS: BUN Creatinine Ratio 17.3 (10-20); Calcium 9.4 mg/dl (8.5-10.1); Est GFR (African American) 73.8; Est GFR (Non-African American) 63.7; Potassium 2.6 mmol/L (3.5-5.1)
[2019-12-16] MEDS: cefTRIAXone SODIUM 1,000 MG in DEXTROSE 5% 50 ML IV SCH (22:55)
[2019-12-16] MEDS: NSS + 20MEQ KCL 20 MEQ/1,000 ML BAG IV SCH (22:55)
[2019-12-16] MEDS: HEPARIN SOD 5,000 UNIT/0.5 ML VIAL SQ SCH (22:55)
[2019-12-16] MEDS ORDERED: HydrALAZINE HCL 20 MG/ML VIAL IV PRN (23:45)
[2019-12-17] MEDS: NSS + 20MEQ KCL 20 MEQ/1,000 ML BAG IV SCH (06:35)
[2019-12-17] MEDS: HEPARIN SOD 5,000 UNIT/0.5 ML VIAL SQ SCH ×3 (06:36→21:45)
[2019-12-17 06:44] LABS: Hematocrit (blood only) 40.6 % (37-47); Mean Corpuscular Hemoglobin 32.5 pg (25-34); Mean Corpuscular Hgb Conc 36.9 g/dL (32-36); Mean Corpuscular Volume 87.9 fL (80-100); Mean Platelet Volume 8.8 fL (7.4-10.4); Platelet Count 282 K/uL (130-400); RDW Coefficient of Variation 12.2 % (11.5-14.5); RDW Standard Deviation 39.4 fL (36.4-46.3); Red Blood Count 4.62 M/uL (4.2-5.4); White Blood Count 15.09 K/uL (4.8-10.8)
[2019-12-17 07:17] LABS: BUN Creatinine Ratio 17.4 (10-20); Calcium 9.7 mg/dl (8.5-10.1); Creatinine Clr Calc Pharmacy 55.6 ml/min; Est GFR (African American) 88.3; Est GFR (Non-African American) 76.2; Magnesium 2.1 mg/dl (1.8-2.4); Potassium 2.6 mmol/L (3.5-5.1)
--- NOTE | 2019-12-17 07:47 | Electrocardiogram Report ---
Test Reason : Blood Pressure : / mmHG Vent. Rate : 065 BPM Atrial Rate : 065 BPM P-R Int : 168 ms QRS Dur : 118 ms QT Int : 400 ms P-R-T Axes : 072 065 080 degrees QTc Int : 416 ms Poor data quality, interpretation may be adversely affected Sinus rhythm with occasional Premature ventricular complexes Possible Left atrial enlargement Low voltage QRS Incomplete left bundle block Abnormal ECG When compared with ECG of 15-JAN-2019 17:49, Premature ventricular complexes are now Present Incomplete left bundle block is now Present Confirmed by Camacho Marsh ([id number]) on 12/17/2019 7:47:17 AM Referred By: REFERRED SELF Confirmed By:Camacho Marsh
[2019-12-17] MEDS ORDERED: POTASSIUM CHLORIDE 20 MEQ TABCR PO STA (10:19)
--- NOTE | 2019-12-17 10:40 | Hospitalist Progress Note ---
Date of Service December 17, 2019 Assessment & Plan (1) Altered mental status: -as per ED notes on 12/16/2019 "The patient is a 64-year-old female brought by ambulance for change in mental status. She was found by a neighbor in bed confused. There was an empty bottle of tramadol close by. The patient can give me no history. She is confused, she is clearly altered. She basely moans and cries when stimulated." -admitting hospitalist concerned that changes in mental status from drug overdose. admitting hospitalist checked patient PDMP record checked that Prescription filled on 11/13/2019 : tramadol 50 mg tablet quantity # 42 tablets, and Prescription filled on 11/29/2019 : tramadol 50 mg tablets # 198 tablets -was started on IV fluids with potassium supplements for hypokalemia and empirically started on ceftriaxone IV -12/17/2019 update: Patient cannot recall why she came to the hospital. She cannot give a good description of recent every day life. She recalls watching TV recently about riots in [place] which is accurate as to the recent current events but she could not give a good Admitted with altered mental status/found unresponsive in her apartment with empty bottle of tramadol. description of what is going on. She gave phone number of [phone] for Fermin whom she reports is her . Hospitalist called this number and left voicemail with hospital phone number as no one picked up the phone from this number. Hospitalist gave initial assessment that patient being treated for low serum possible and dehydration versus infection which caused leukocytosis. Patient heard this description but more interested in being able to leave the hospital today. Hosp italist reinforced that while understanding her preference of not having protracted hospital stay, that at minimum there has to be available outside contacts that can pick her up (2) Drug overdose: -Urine tox screen positive for metabolites being flagged as components of ecstasy/PCP/opiates/THC (unclear whether some components of patient's outpatient medications can result in being flagged as ecstasy or PCP metabolites) -as it was uncertain of patient's intent of whether intentional or unintentional misuse of tramadol pain medications, patient was empirically placed on suicide precautions with 1 to 1 observation by admitting hospitalist as well as psychiatry consult -12/17/2019 evaluation that patient getting better from initial confusion and not seeming to be suicidal. discontinued suicidal precautions and 1 to1 observation, can continue with psychiatry consultation prolonged QTc is resolved -ED notes reported that initial EKG with QTc of 535 -based on available EKGs uploaded to EMR and reviewed on this admission, the QTc is normal (3) Bipolar disorder: -history of Bipolar disorder -last hospitalization in 01/2019 patient had poor interactions with medical staff and several hospitalists were rotated to her care because she demanded different doctors to treat back pain with narcotic pain medications -case management, PT/OT evaluations (4) Hypothyroid: -levothyroxine 50 mcg daily is on outpatient medication lsit -TSH is 0.518 which is in normal reference range so thyroid is not cause of initial altered mental status -can continue home dose levoythroxine (5) Leukocytosis: possible dehydration -admission WBC 14,000, was empirically started on ceftriaxone in case of urinary tract infection but the urine analysis has no bacteria -the BUN/creatinine is not suggestive of pre-renal acute kidney injury but these numbers do not rule put possibility of dehydration at home -no fevers to date, WBC is 15,000 on 12/17/2019, can continue ceftriaxone IV for now while awaiting urine culture results and blood culture results drawn on admission day - unclear whether patient will stay for further treatment with antibiotics History of C.difficile in the past -place on contact precautions while inpatient -check C.difficile test in stool if patient can provide sample (6) Hypokalemia: -admission serum potassium 2.2 -serum potassium rising to 2.6, hospitalist on 12/17/2019 ordered additional potassium as IV and oral and plans to repeat serum potassium in afternoon of 12/17/2019 but unclear as to patient's cooperation at this time given that she is more awake and does not seem interested in the current medical assessments (7) Hypertension: -hold HCTZ while with hypokalemia -can resume home dose losartan 100 mg daily as per outpatient records Admission and Anticipated Discharge Date Admission Date: December 16, 2019 Subjective Patient cannot recall why she came to the hospital. She cannot give a good description of recent every day life. She recalls watching TV recently about riots in [place] which is accurate as to the recent current events but she could not give a good description of what is going on. She gave phone number of [phone] for Fermin whom she reports is her . Hospitalist called this number and left voicemail with hospital phone number as no one picked up the phone from this number. Hospitalist gave initial assessment that patient being treated for low serum possible and dehydration versus infection which caused leukocytosis. Patient heard this description but more interested in being able to leave the hospital today. Hospitalist reinforced that while understanding her preference of not having protracted hospital stay, that at minimum there has to be available outside contacts that can pick her up. Review of Systems Review of Systems: All systems reviewed & are unremarkable except as noted in Subjective Physical Exam Constitutional: + thin Eyes: PERRL, conjunctivae normal, anicteric sclerae EOM intact bilaterally ENMT: external ear and nose normal, oropharynx normal Neck: normal visual inspection Respiratory: normal respiratory effort, lungs clear to auscultation Cardiovascular: Rate/Rhythm: regular rate Gastrointestinal (Abdomen): normal bowel sounds, soft, nontender, no hepatosplenomegaly Musculoskeletal: Head/Neck/Chest: normocephalic and head atraumatic Neurologic: PERRL, EOMI, accommodation nl, no face palsy, no dysarthria Psychiatric: Orientation: alert and cooperative patient is conversing properly and answers questions to best of her ability but appears to have difficulty concentrating on recent events and somewhat scattered in changing the focus of the conversation towards going home and where her is when hospitalist trying to explain the medical issues based on available evidence Results & Data Results & Data ([facility]) Vital Signs (Past 12 Hours) Vital Signs Temp Pulse Pulse Resp BP BP Pulse Ox 12/17/19 07:38 83 12/17/19 07:36 36.6 C 78 18 144/84 H 96 12/17/19 04:02 71 12/17/19 03:30 37.2 C 88 18 133/83 100 12/16/19 23:08 37.3 C 71 13 182/99 H 100 (1) Drug overdose Encounter type: initial encounter Injury intent: accidental or unintentional Qualified Code(s): T50.901A - Poisoning by unspecified drugs, medicaments and biological substances, accidental (unintentional), initial encounter (2) Altered mental status Altered mental status type: delirium Qualified Code(s): R41.0 - Disorientation, unspecified
[2019-12-17] MEDS: POTASSIUM ACETATE 10 MEQ in 0.9 % SODIUM CHLORIDE 100 ML IV SCH ×2 (11:24→12:37)
[2019-12-17] MEDS ORDERED: MULTI-VITAMIN INFUSION 10 ML, THIAMINE HCL 100 MG, FOLIC ACID 1 MG in SODIUM CHLORIDE 0... IV ONE (13:45)
[2019-12-17] MEDS ORDERED: POTASSIUM CHLORIDE / WTR 10 MEQ/100 ML PLCT IV ONE (13:45)
[2019-12-17] MEDS ORDERED: ALUMINUM/MAGNESIUM SUSP 30 ML UDC PO STA (14:19)
[2019-12-17] MEDS ORDERED: NSS + 20MEQ KCL 20 MEQ/1,000 ML BAG IV SCH (15:00)
[2019-12-17 16:49] LABS: Hematocrit (blood only) 37.7 % (37-47); Hemoglobin 13.4 g/dL (12.0-16.0); Mean Corpuscular Hemoglobin 31.2 pg (25-34); Mean Corpuscular Hgb Conc 35.5 g/dL (32-36); Mean Corpuscular Volume 87.9 fL (80-100); Mean Platelet Volume 8.5 fL (7.4-10.4); Platelet Count 213 K/uL (130-400); RDW Coefficient of Variation 12.4 % (11.5-14.5); RDW Standard Deviation 39.6 fL (36.4-46.3); Red Blood Count 4.29 M/uL (4.2-5.4); White Blood Count 15.53 K/uL (4.8-10.8)
[2019-12-17 17:11] LABS: Albumin Globulin Ratio 1.1 (0.9-2); BUN Creatinine Ratio 21.1 (10-20); Bilirubin,Total 0.6 mg/dl (0.2-1); Calcium 8.9 mg/dl (8.5-10.1); Creatinine Clr Calc Pharmacy 65.3 ml/min; Est GFR (African American) 105.9; Est GFR (Non-African American) 91.4; Globulin 2.7 gm/dl (2.5-4.0); Potassium 3.5 mmol/L (3.5-5.1); Total Protein 5.7 gm/dl (6.4-8.2)
[2019-12-17 17:27] LABS: Basophils # (auto) 0.01 K/uL (0-0.2); Basophils % (auto) 0.1 %; Echinocytes 1+; Eosinophils # (auto) 0.01 K/uL (0-0.5); Eosinophils % (auto) 0.1 %; Immature Granulocytes # (auto) 0.07 K/uL (0.00-0.02); Immature Granulocytes % (auto) 0.5 %; Lymphocytes # (auto) 1.54 K/uL (1.2-3.4); Lymphocytes % (auto) 9.9 %; Monocytes # (auto) 1.14 K/uL (0.11-0.59); Monocytes % (auto) 7.3 %; Neutrophils # (auto) 12.76 K/uL (1.4-6.5); Neutrophils % (auto) 82.1 %
[2019-12-17] MEDS: predniSONE 5 MG TAB PO SCH (17:48)
[2019-12-17] MEDS: SODIUM CHLORIDE 0.9% 1000ML 1,000 ML IV SCH (17:49)
[2019-12-17] MEDS: cefTRIAXone SODIUM 1,000 MG in DEXTROSE 5% 50 ML IV SCH (21:44)
[2019-12-18] MEDS: HEPARIN SOD 5,000 UNIT/0.5 ML VIAL SQ SCH ×3 (05:51→21:04)
[2019-12-18] MEDS: LEVOTHYROXINE SODIUM 50 MCG TABLET PO SCH (05:59)
[2019-12-18 06:20] LABS: Hematocrit (blood only) 36.4 % (37-47); Hemoglobin 13.1 g/dL (12.0-16.0); Mean Corpuscular Hemoglobin 31.9 pg (25-34); Mean Corpuscular Volume 88.6 fL (80-100); Mean Platelet Volume 8.4 fL (7.4-10.4); Platelet Count 187 K/uL (130-400); RDW Coefficient of Variation 12.3 % (11.5-14.5); RDW Standard Deviation 39.6 fL (36.4-46.3); Red Blood Count 4.11 M/uL (4.2-5.4); White Blood Count 7.82 K/uL (4.8-10.8)
[2019-12-18 06:46] LABS: BUN Creatinine Ratio 21.2 (10-20); Creatinine Clr Calc Pharmacy 74.1 ml/min; Est GFR (African American) 109.1; Est GFR (Non-African American) 94.1; Magnesium 1.9 mg/dl (1.8-2.4); Potassium 3.2 mmol/L (3.5-5.1)
[2019-12-18] MEDS ORDERED: POTASSIUM ACETATE 10 MEQ in 0.9 % SODIUM CHLORIDE 100 ML IV ONE (07:18)
[2019-12-18] MEDS ORDERED: POTASSIUM CHLORIDE 20 MEQ/15 ML UDC PO STA (07:18)
[2019-12-18] MEDS: POTASSIUM CHLORIDE / WTR 10 MEQ/100 ML PLCT IV SCH ×2 (07:55→07:56)
[2019-12-18] MEDS: SODIUM CHLORIDE 0.9% 1000ML 1,000 ML IV SCH ×2 (07:55→23:33)
[2019-12-18] MEDS: predniSONE 5 MG TAB PO SCH (07:56)
--- NOTE | 2019-12-18 10:34 | Hospitalist Progress Note ---
Date of Service December 18, 2019 Assessment & Plan (1) Altered mental status: Amnesia -as per ED notes on 12/16/2019 "The patient is a 64-year-old female brought by ambulance for change in mental status. She was found by a neighbor in bed confused. There was an empty bottle of tramadol close by. The patient can give me no history. She is confused, she is clearly altered. She basely moans and cries when stimulated." -admitting hospitalist concerned that changes in mental status from drug o verdose. admitting hospitalist checked patient PDMP record checked that Prescription filled on 11/13/2019 : tramadol 50 mg tablet quantity # 42 tablets, and Prescription filled on 11/29/2019 : tramadol 50 mg tablets # 198 tablets -was started on IV fluids with potassium supplements for hypokalemia and empirically started on ceftriaxone IV -12/17/2019 update: Patient cannot recall why she came to the hospital. She cannot give a good description of recent every day life. She recalls watching TV recently about riots in [place] which is accurate as to the recent current events but she could not give a good. She gave phone number of [phone] for Fermin whom she reports is her . Hospitalist called this number and left voicemail with hospital phone number as no one picked up the phone from this number. Hospitalist gave initial assessment that patient being treated for low serum possible and dehydration versus infection which caused leukocytosis. Patient heard this description but more interested in being able to leave the hospital today. Hospitalist reinforced that while understanding her preference of not having protracted hospital stay, that at minimum there has to be available outside contacts that can pick her up. Later hospitalist team finds out that patient's has been for 3 years from case technician who contacted patient's friend Maricruz. A psychiatry consult was requested -12/18/2019 update: patient seen this AM and apparently is only starting to recognize her memory deficits while sitting up on the bed. She expresses shock that she finds out her has been for 3 years. She had trouble recalling the year and gave and incorrect year. She tried to concentrate where she placed her house keys but could not recall. She could not recall who prescribed her tramadol and other home medications and hospitalist had to tell her of information because of collaborative information from outpatient notes and PDMP. When patient was recounted her medical stay by hospitalist doctor, she was attentive but then during conversation when I, the hospitalist doctor, explaining that I hope further time and IV hydration may help her detox from tramadol and help get her memories back, she tried to manipulate the physician words and accused physician of being emotionally uncaring to her situation that she just found out her has been and because I would cause her to relive painful memories. I emphasize that the goal of her memories to come back is to help her with other aspects of her life such as self-care at home and knowing what medications to take when at home. She calmed down and then explained that she her was the only one in her life whoever loved her - she explains family problems including no further interactions with her sister who appears to be the only family relation alive. (2) Drug overdose: -Urine tox screen positive for metabolites being flagged as components of ecstasy/PCP/opiates/THC (unclear whether some components of patient's outpatient medications can result in being flagged as ecstasy or PCP metabolites) -as it was uncertain of patient's intent of whether intentional or unintentional misuse of tramadol pain medications, patient was empirically placed on suicide precautions with 1 to 1 observation by admitting hospitalist as well as ps ychiatry consult -12/17/2019 evaluation that patient getting better from initial confusion and not seeming to be suicidal. 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 Bray, Dr. Brink and that has been on prescribed prednisone 5 mg daily chronically for osteoarthritis of the knees. will continue daily prednisone at this time to prevent sudden withdrawal of steroids (4) Hypothyroid: -levothyroxine 50 mcg daily is on outpatient medication lsit -TSH is 0.518 which is in normal reference range so thyroid is not cause of initial altered mental status -can continue home dose levoythroxine (5) Leukocytosis: possible dehydration -admission WBC 14,000, was empirically started on ceftriaxone in case of urinary tract infection but the urine analysis has no bacteria -the BUN/creatinine is not suggestive of pre-renal acute kidney injury but these numbers do not rule put possibility of dehydration at home , also prednisone at home can cause leukocytosis -no fevers to date, WBC is 15,000 on 12/17/2019 -WBC normalized on 12/18/2019 - can continue ceftriaxone IV for now while awaiting urine culture results and blood culture results drawn on admission day History of C.difficile in the past -place on contact precautions while inpatient -check C.difficile test in stool if patient can provide sample (6) Hypokalemia: -admission serum potassium 2.2 -serum potassium rising to 2.6, hospitalist on 12/17/2019 which improved to 3.5 by afternoon of 12/17/2019 with potassium supplements -serum potassium potassium 3.2 and additional potassium supplements ordered (7) Hypertension: -hold HCTZ while with hypokalemia -continue home dose losartan 100 mg daily as per outpatient records Admission and Anticipated Discharge Date Admission Date: December 16, 2019 Subjective patient seen this AM and apparently is only starting to recognize her memory deficits while sitting up on the bed. She expresses shock that she finds out her has been for 3 years. She had trouble recalling the year and gave and incorrect year. She tried to concentrate where she placed her house keys but could not recall. She could not recall who prescribed her tramadol and other home medications and hospitalist had to tell her of information because of collaborative information from outpatient notes and PDMP. When patient was recounted her medical stay by hospitalist doctor, she was attentive but then during conversation when I, the hospitalist doctor, explaining that I hope further time and IV hydration may help her detox from tramadol and help get her memories back, she tried to manipulate the physician words and accused physician of being emotionally uncaring to her situation that she just found out her has been and because I would cause her to relive painful memories. I emphasize that the goal of her memories to come back is to help her with other aspects of her life such as self-care at home and knowing what medications to take when at home. She calmed down and then explained that she her was the only one in her life whoever loved her - she explains family problems including no further interactions with her sister who appears to be the only family relation alive. breathing on room air. no chest pain. no shortness of breath. no dizziness. no headache Review of Systems Review of Systems: All systems reviewed & are unremarkable except as noted in Subjective Physical Exam Constitutional: + thin Eyes: PERRL, conjunctivae normal, anicteric sclerae EOM intact bilaterally ENMT: external ear and nose normal, oropharynx normal Neck: normal visual inspection Respiratory: normal respiratory effort, lungs clear to auscultation Cardiovascular: Rate/Rhythm: regular rate Gastrointestinal (Abdomen): normal bowel sounds, soft, nontender, no hepatosplenomegaly Musculoskeletal: Head/Neck/Chest: normocephalic and head atraumatic Neurologic: PERRL, EOMI, accommodation nl, no face palsy, no dysarthria Psychiatric: see above Results & Data Results & Data ([facility]) Vital Signs (Past 12 Hours) Vital Signs Temp Pulse Pulse Resp BP BP Pulse Ox 12/18/19 08:14 36.7 C 82 16 136/91 95 12/18/19 07:00 81 12/18/19 03:52 37.1 C 80 20 149/84 H 97 12/18/19 00:00 79 12/17/19 23:07 37.3 C 80 18 132/74 95 (1) Drug overdose Encounter type: initial encounter Injury intent: accidental or unintentional Qualified Code(s): T50.901A - Poisoning by unspecified drugs, medicaments and biological substances, accidental (unintentional), initial encounter (2) Altered mental status Altered mental status type: delirium Qualified Code(s): R41.0 - Disorientation, unspecified
--- NOTE | 2019-12-18 11:01 | Psychiatric Consultation ---
Date of Consultation December 18, 2019 Impression / Recommendations Impression Dr. Charito Samayoa was directly involved in review and discussion of the patient's case and participated in medical decision making regarding treatment recommendations. RECOMMENDATIONS: 12/17 - Continue attempts to gather collateral information regarding factors leading to patient's admission. It seems highest on the differential that her AMS may be related to a prescription for Tramadol, with suspicion patient had taken the medication incorrectly (though cannot yet confirm that this was intentional). - Pt is presently denying any recall of suicidal thoughts or behaviors prior to hospital admission. She is denying SI at this time. Attempting to gather collateral information from patient's close friend regarding any recent behavioral changes or safety concern. Friend, Maricruz, did report that a Last Will and Testament and DNR paperwork was found on patient's kitchen table (friend to send picture to liaison phone) - would be helpful to gather more information on the context of this event. - QTc has now normalized at 424 - (initial QTc in ED was 535). - Will contact most recent psychiatric prescriber - TIANA Singletary at [facility] for current medication list. They did report that the patient has not been seen since 07/2019. Suggest continuing to hold psychotropic medications until her medications can be confirmed - it looks as though lamotrigine may not have been prescribed since 09/2019. Pt may require re- titration of some of these agents should they be resumed (specifically lamotrigine) - Will continue to gather collateral information in order to better understand factors leading to patient's admission. Please reach out to our service with any additional questions or updates. Psych History Identifying Data 64-year-old female admitted medically on 12/16/2019 after presenting to the ED following an event of unresponsiveness that was believed to be related to a drug overdose - as an empty bottle of Tramadol was found next to the patient. Psychiatric consultation was requested to evaluate patient for "confabulations" - patient with a history of opioid dependence, bipolar disorder, and borderline personality disorder. Chief Complaint "Who are you, are you a doctor? What is going on?" History of Present Illness Kerline Odom is a 64-year-old female admitted medically on 12/16/2019 after presenting to the ED following an event of unresponsiveness believed to be related to an overdose of Tramadol. It was reported that patient was found "confused"/unresponsive by a close friend, Maricruz, with an empty bottle of Tramadol next to her. Unfortunately, the patient has not been able to recall events leading to her admission and has remained rather confused while in the hospital as well. She was frequently asking to speak with her , Fermin, who had reportedly in ~2015, patient unable to recall that he had . At this time, patient is denying any recall of suicidal thoughts or behavior prior to her admission. Pt was most recently seen on our psychiatric consult service in 06/2018 - at that time patient had diagnoses of bipolar disorder and borderline personality disorder. Psychiatric consultation was requested for "c onfabulations." Pt is cooperative with psychiatric assessment, though admits she does not recall anything prior to her admission. Pt begins interview by inquiring from this provider "what is going on?" Pt states "I arrived here a little unclear of what was happening, and now I'm finding out some rather unpleasant things." Pt states she was just informed today that her had in 2015, stating she was unable to recall that he had passed. She states that was difficult news to hear, but does now remember that her is no longer alive. When asked about what led to her hospitalization, the patient states "something about a bottle of Tramadol...I don't know. I do take Tramadol, but I don't know anything more than that." Pt denies recall that she had taken Tramadol (either appropriately or inappropriately) prior to admission. Pt does apologize about being unable to provide information, stating "I'm sorry, I want so badly to remember, but I can't." Pt is unable to recall her most recent psychotropic medications, and believes that she is still seeing TIANA Singletary at [facility] for her medications (the clinic stating she had not been seen since ). Pt denies ability to recall any recent substance use. For most of our conversation, patient is rather distracted and tangential. She frequently picks up random items around her bed and makes comparisons to other objects (i.e. picking up her Kleenex box and displaying it as she talks about pill organizers). Pt is highly focused on belief that her bed is vibrating intermittently, and states that her legs are being pulled by the corners of the bed. She removes the blanket from her feet in order to show this provider. At one point, the patient even slid over in bed and requested that this provider lay next to her in order to also feel the same sensations. Pt seemed to get offended when this provider declined, but reported belief that the patient was experiencing these sensations. Pt apologizes again that she is not able to recall more information. She does deny SI or other safety concerns at this time. She denies other needs from our service presently. Past Psychiatric History Current Psychiatric Diagnosis: Bipolar disorder, borderline personality disorder Outpatient Services: None confirmed presently - historically was seen by TIANA Singletary through the [facility] - reportedly has not had an appointment since 07/2019. Previous Psych Admissions: [facility] at least twice - most recently 05/2017 and 06/2017 [facility] - 09/2017 History of Previous Suicide Attempt: Yes Describe Attempts in the Past: Per 06/2018 Consult - 1 by overdose, 1 by cutting Past Medication Trials: Per 06/2018 Psychiatric Consultation: 1. Seroquel 2. Risperdal 3. Trileptal 4. Elavil 5. Ativan 6. Klonopin 7. Cymbalta 8. Lamictal 9. Gabapentin 10.Topamax 11.Lunesta Allergies Allergy/AdvReac Type Severity Reaction Status Date / Time cyclobenzaprine Allergy Intermediate RASH AND Verified 11/28/19 12:08 SWELLING fentanyl Allergy Intermediate MAJOR FEET Verified 11/28/19 12:08 SWELLING ketorolac [From Toradol] Allergy Unknown SEE COMMENT Verified 11/28/19 12:08 oxcarbazepine Allergy Unknown UNKNOWN - Verified 11/28/19 12:08 PT DOESN'T REMEMBER risperidone AdvReac Intermediate exhaustion Verified 11/28/19 12:08 clonazepam AdvReac Mild nausea Verified 11/28/19 12:08 Home Medications Home Medications Medication Instructions Recorded Confirmed Type albuterol sulfate 1 puff INHALATION QID PRN 08/18/18 12/16/19 History duloxetine [Cymbalta] 120 mg PO DAILY 08/18/18 12/16/19 History ferrous sulfate 325 mg PO BID 08/18/18 12/16/19 History gabapentin 1,200 mg PO TID 08/18/18 12/16/19 History levothyroxine [Levoxyl] 50 mcg PO DAILY 08/18/18 12/16/19 History losartan 100 mg PO DAILY 08/18/18 12/16/19 History omeprazole 20 mg PO BID 08/18/18 12/16/19 History potassium chloride [Klor-Con M20] 20 meq PO DAILY 08/18/18 12/16/19 History prednisone 5 mg PO DAILY 08/18/18 12/16/19 History tramadol 100 mg PO Q6 PRN 08/18/18 12/16/19 History hyoscyamine sulfate 0.125 mg PO Q4 PRN 01/15/19 12/16/19 History ondansetron HCl [Zofran] 8 mg PO Q8 PRN 01/15/19 12/16/19 History acetaminophen 500 mg tablet 500 mg PO QID PRN 11/28/19 12/16/19 History acyclovir 5 % topical ointment 1 appln TOP 6XD 11/28/19 12/16/19 History chlorthalidone 25 mg tablet 25 mg PO DAILY 11/28/19 12/16/19 History calcitriol 0.25 mcg capsule 0.25 mcg PO DAILY #30 cap 12/12/19 12/16/19 Rx lamotrigine 200 mg PO BID 12/16/19 12/16/19 History sulfamethoxazole-trimethoprim 0 ml PO BID 12/16/19 12/16/19 History topiramate 150 mg PO HS 12/16/19 12/16/19 History Family History Unable to recall family history at this time. Previous psychiatric documentation notes a brother and mother with depression and a father with history of alcohol abuse. Substance Abuse History Pt reports she is unable to recall at this time Personal History Living Arrangements: Home (lives independently, but close friends checking in periodically) Born In: [place] Highest Grade Completed: Some College Marital Status: (, Fermin, ~2015) Number Of Children: None Beliefs That Will Affect Care: None History of Legal Problems: Denied Patient History Medical History Bipolar disorder (Chronic) Borderline personality disorder (Chronic) C. 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 Wound abscess (Resolved) Surgical History H/O carpal tunnel repair H/O inguinal hernia repair (Chronic) S/P cataract surgery Status post total hip replacement, left (Chronic) Family History Other Cancer Heart disease Hypertension Lung disease Social History Preferred Language: Nicaraguan Communication Ability: Impaired Communication Ability Comment: AMS Waste Reclaimer Required: No Beliefs That Will Affect Care: None marital status: / Current Living Situation: Alone current occupational status: retired Hx Alcohol Use: No Physical Exam Psychiatric: Orientation: alert, oriented to person, oriented to place and cooperative (though limited in ability to provide reliable history ); + not oriented to time (reports it is December 17, 2019) Pt claims she only knows the date from "looking at the board this morning" - actually reciting yesterday's da te Apperance: appropriately dressed, + disheveled and appeared stated age Thin-appearing female, appearing restless in bed but in no acute distress. Pt Eye Contact: + fair eye contact (though appearing distracted ) Motor Behavior: + psychomotor agitation (appearing restless, frequently moving blankets, looking under bed) Speech: normal rate/rhythm/volume of speech Affect: + anxious affect (restless) Mood: + anxious mood ("I'm worried, I don't remember anything that happened") Thought Process: + tangential thought process and + perseveration (on vibrations and "pulling" of the bed); + thought process not clear or coherent Thought Content: + preoccupation (with reported vibrations of the bed) Not clearly reality based, as patient admits she does not recall any events prior to her admission. No clear evidence of delusional beliefs, though recall in general is limited at this time. Suicidal Thoughts: denies suicidal thoughts and denies suicidal intent Unable to recall SI prior to hospital admission as well Homicidal Thoughts: denies homicidal thoughts Hallucinations: + tactile hallucinations (feeling her bed vibrating, feet being pulled ); no auditory hallucinations and no visual hallucinations Cognition: language grossly intact; + recent memory not intact and + attention not intact Insight: + impaired insight Judgement: + impaired judgement Vital Signs (Past 24 Hours): Last Vital Signs Temp 36.7 C 12/18/19 08:14 Pulse 82 12/18/19 08:14 Resp 16 12/18/19 08:14 BP 136/91 12/18/19 08:14 Pulse Ox 95 12/18/19 08:14 Review of Systems Constitutional: reports fatigue Cardiovascular: denied Respiratory: denied Gastrointestinal: denied Neurological: denied Musculoskeletal: reports feeling as though her legs are being pulled Psychiatric: denies symptoms other than stated above Total of at least 10 systems reviewed, pertinent positives as above and in HPI. Results & Data (PSY) Medications Administered Heparin Sodium (Porcine) (Heparin Sodium (Porcine)) 5,000 units SQ Q8 [facility] Stop: 01/15/20 21:59 Last Admin: 12/18/19 05:51 Dose: 5,000 units Documented by: [id number] Cosigned by: [id number] Admin: 12/17/19 21:45 Dose: 5,000 units Documented by: [id number] Cosigned by: [id number] Admin: 12/17/19 14:25 Dose: 5,000 units Documented by: [id number] Cosigned by: [id number] Admin: 12/17/19 06:36 Dose: Not Given Documented by: [id number] Admin: 12/16/19 22:55 Dose: Not Given Documented by: [id number] Ceftriaxone Sodium 1,000 mg/ (Dextrose) 50 mls @ 100 mls/hr IV Q24H [facility]; Protocol Stop: 12/21/19 21:59 Last Infusion: 12/17/19 22:14 Dose: 0 mls/hr Documented by: [id number] Admin: 12/17/19 21:44 Dose: 100 mls/hr Documented by: [id number] Infusion: 12/16/19 23:30 Dose: 0 mls/hr Documented by: [id number] Admin: 12/16/19 22:55 Dose: 100 mls/hr Documented by: [id number] Sodium Chloride (Nss 1000ml) 1,000 mls @ 60 mls/hr IV .[id number] [facility] Stop: 01/16/20 17:14 Last Admin: 12/18/19 07:55 Dose: 60 mls/hr Documented by: [id number] Infusion: 12/18/19 07:55 Dose: 60 mls/hr Documented by: [id number] Admin: 12/17/19 17:49 Dose: 60 mls/hr Documented by: [id number] [facility] Stop: 01/17/20 06:29 Last Admin: 12/18/19 05:59 Dose: 50 mcg Documented by: [id number] Prednisone (Prednisone) 5 mg PO DAILY [facility] Stop: 01/16/20 16:59 Last Admin: 12/18/19 07:56 Dose: 5 mg Documented by: [id number] Admin: 12/17/19 17:48 Dose: 5 mg Documented by: [id number] Coding Level of Care Code 63943 [facility] Intl Hosp Care Lvl 2
[2019-12-18 12:29] LABS: BUN Creatinine Ratio 24.1 (10-20); Calcium 9.4 mg/dl (8.5-10.1); Creatinine Clr Calc Pharmacy 75.3 ml/min; Est GFR (African American) 109.7; Est GFR (Non-African American) 94.6; Potassium 3.4 mmol/L (3.5-5.1)
--- NOTE | 2019-12-18 16:30 | Electrocardiogram Report ---
Test Reason : Blood Pressure : / mmHG Vent. Rate : 070 BPM Atrial Rate : 070 BPM P-R Int : 138 ms QRS Dur : 088 ms QT Int : 404 ms P-R-T Axes : 076 054 067 degrees QTc Int : 436 ms Normal sinus rhythm Low voltage QRS Nonspecific T wave abnormality Abnormal ECG When compared with ECG of 17-DEC-2019 07:13, Aberrant conduction is no longer Present T wave inversion no longer evident in Lateral leads Confirmed by Camacho Marsh ([id number]) on 12/18/2019 4:30:11 PM Referred By: REFERRED SELF Confirmed By:Camacho Marsh
[2019-12-18] MEDS: DULOXETINE HCL 60 MG CAP PO SCH (18:33)
[2019-12-18] MEDS: GABAPENTIN 100 MG CAP PO SCH (21:04)
[2019-12-18] MEDS: cefTRIAXone SODIUM 1,000 MG in DEXTROSE 5% 50 ML IV SCH (21:07)
[2019-12-18] MEDS ORDERED: LORazepam 0.5 MG TAB PO STA (23:21)
[2019-12-19] MEDS: HEPARIN SOD 5,000 UNIT/0.5 ML VIAL SQ SCH ×3 (05:43→21:12)
[2019-12-19] MEDS: LEVOTHYROXINE SODIUM 50 MCG TABLET PO SCH (05:43)
[2019-12-19 07:39] LABS: Calcium 9.7 mg/dl (8.5-10.1); Creatinine Clr Calc Pharmacy 53.5 ml/min; Est GFR (African American) 82.2; Est GFR (Non-African American) 70.9; Potassium 3.5 mmol/L (3.5-5.1)
[2019-12-19] MEDS ORDERED: POTASSIUM CHLORIDE 20 MEQ TABCR PO STA (07:43)
[2019-12-19] MEDS: predniSONE 5 MG TAB PO SCH (08:28)
[2019-12-19] MEDS: DULOXETINE HCL 60 MG CAP PO SCH (08:28)
[2019-12-19] MEDS: GABAPENTIN 100 MG CAP PO SCH ×3 (08:28→21:12)
[2019-12-19] MEDS: ACETAMINOPHEN 325 MG TAB PO PRN ×2 (10:42→17:26)
--- NOTE | 2019-12-19 12:03 | Psychiatric Progress Note ---
Date of Service December 19, 2019 Impression / Recommendations Impression 12/18 -this appears to be an intentional tramadol overdose in a suicide attempt, and although patient is still somewhat evasive with questioning, she admits to depression and suicidality, and left a handwritten will indicating she intended to . She dropped out of outpatient mental health treatment 5 months ago, we will need to get those records for additional information as she is a limited historian. -Recommend inpatient psychiatric treatment, on an involuntary commitment if necessary, when she is medically stable. I completed a 302 physicians petition, and patient should not be allowed to leave AMA. She will need to be eating and drinking, ambulating and toileting independently before she can be referred for inpatient psychiatric care. -Hold psychotropic medications pending clarification of outpatient regimen/review of outpatient records. Interval History Identifying Information 64-year-old female who lives alone, has a history of borderline personality disorder, bipolar disorder, fibromyalgia, and multiple other medical problems who presented to the hospital after she was found unresponsive next to an empty bottle of tramadol. She was seen today for psychiatric follow-up. Chief Complaint " Home, well, when I was talking to the doctor, I didn't remember that my a few years ago..." Subjective Subjective Patient was seen & assessed, chart reviewed, and interval progress reviewed with the liaison nurse. Her friend Maricruz, who found her unresponsive, sent us a copy of the hand written "last will and testament" that the patient left, dated 12/15/2019, see copy in chart. Her friend also reported that she had not noticed the patient being more depressed recently, and that she had not been confused either, but was reporting pain. The patient did sign a release for Kaern Hernandez at the [facility] psych clinic, and we have requested records, but not yet received them. Staff there indicated that the patient was last seen in July, is no longer a patient there, and that she left on "bad terms." The patient is more alert and oriented to self and situation. On my assessment, she is a difficult historian, often wanting to return to the topic of her grievances with Dr. Hernandez at the psych clinic, which she is poorly able to remember/explain. She had to be repeatedly redirected. She initially denied any memory of anything prior to waking up in the hospital, but later stated "it is starting to come back to me," and admitted that she had been depressed and suicidal, and "must have wanted" to end her life, based on the information reviewed with her about the empty pill bottle and her will. She says "it's not a good way to feel about her life," and says she has been feeling depressed "a long time," with suicidal thoughts. She is unsure if she has been taking psychotropic medications at home, and if so, which ones. She is unable to relay her most recent medication regimen, other than lamotrigine, but is not sure when she stopped taking that medication. She initially tells me she is still in treatment at the psych clinic, and then says she "just remembered" that she was angry at them so dropped out of treatment. She said she did not like how somebody spoke to her on the phone, but cannot recall further details. She repeatedly returns to this topic, stating "I need to deal with this, this is the kind of stuff I don't like to tackle, I got to a place where I was on the wrong side of someone's narcissism. That sounds like a crazy thing to say doesn't it?" Physical Exam Psychiatric Thin, cachectic female dressed in a hospital gown and reclining in her bed in no acute distress. The ends of her hair dyed orange, and hair is tangled and matted. Fair eye contact, and no abnormal movements. Calm and cooperative, but a limited historian, not necessarily forthcoming. Dramatic style of speech and behavior. Rambling, slowed speech, often trails off without finishing sentences. Mood is depressed, and affect is depressed and confused. Thoughts are circumstantial, perseverative. + SI, no HI, hallucinations, or paranoia. Alert and oriented to self, place, situation. Limited insight and judgment. Vital Signs (Past 24 Hours) Last Vital Signs Temp 37.3 C 12/19/19 07:00 Pulse 96 H 12/19/19 08:00 Resp 22 12/19/19 07:00 BP 154/94 H 12/19/19 07:00 Pulse Ox 92 12/19/19 07:00 Results & Data ([facility]) Laboratory Results Laboratory Results - last 24 hr 12/18/19 12/19/19 11:49 06:55 Sodium 134 L 134 L Potassium 3.4 L 3.5 Chloride 102 100 Carbon Dioxide 23 28 Anion Gap 8.0 6.0 BUN 15 12 Creatinine 0.62 0.86 Est Cr Clr Drug Dosing 75.3 53.5 Est GFR ( Amer) 109.7 82.2 Est GFR (Non-Af Amer) 94.6 70.9 BUN/Creatinine Ratio 24.1 H 14.0 Glucose 107 H 129 H Calcium 9.4 9.7 Current Inpatient Medications Current Inpatient Medications: Current Inpatient Medications Acetaminophen (Tylenol) 325 mg PO Q6H PRN PRN Reason: Pain or Fever Stop: 01/15/20 21:25 Last Admin: 12/19/19 10:42 Dose: 325 mg Documented by: Duloxetine HCl (Cymbalta) 120 mg PO QAM [facility] Stop: 01/17/20 16:29 Last Admin: 12/19/19 08:28 Dose: 120 mg Documented by: Gabapentin (Neurontin) 100 mg PO TID [facility] Stop: 01/17/20 20:59 Last Admin: 12/19/19 08:28 Dose: 100 mg Documented by: Heparin Sodium (Porcine) (Heparin Sodium (Porcine)) 5,000 units SQ Q8 [facility] Stop: 01/15/20 21:59 Last Admin: 12/19/19 05:43 Dose: Not Given Documented by: Levothyroxine Sodium (Synthroid) 50 mcg PO DAILYBB [facility] Stop: 01/17/20 06:29 Last Admin: 12/19/19 05:43 Dose: Not Given Documented by: Polyethylene Glycol (Miralax Powder Packet) 17 gm PO DAILY PRN PRN Reason: Constipation Stop: 01/15/20 21:25 Prednisone (Prednisone) 5 mg PO DAILY [facility] Stop: 01/16/20 16:59 Last Admin: 12/19/19 08:28 Dose: 5 mg Documented by:
--- NOTE | 2019-12-19 12:04 | Hospitalist Progress Note ---
Date of Service December 19, 2019 Assessment & Plan Admission and Anticipated Discharge Date Admission Date: December 16, 2019 Subjective ADMISSION ATTENDING NOTE : Pt was admitted by me on 12/16/19 -found unresponsive at home , possible drug over dose , empty bottles of Tramadol was found at the Apartment , reached out to patient's Family physician Dr Osman's office at [facility] -to update pt's admission at [facility] with Possible suicide attempt and Drug overdose with Tramadol hx of Psychiatric illness Bipolar disorder /Depression Pt being evaluated by Psychiatry team at [facility] Dr Osman is out of office today ,message left at the nurse -PATIENT SHOULD BE FLAGGED IN THE CHART -RISK FOR DRUG OVERDOSE /SUICIDE ATTEMPT- PRESCRIPTIONS FOR NARCOTICS AND SEDATIVES SHOULD BE AVOIDED OR UTILIZE NARCOTIC PAIN MED DRUG CONTRACT -FOR ANY FUTURE PRESCRIPTIONS WITH STRICT REGULATIONS ON NUMBER OF PILLS PRESCRIBED , FOR HER CHRONIC PAIN -SHE SHOULD RECEIVED PAIN MEDICATIONS FORM SINGLE PROVIDER WITH STRICT MONITORING TO PREVENT ABUSE OR OVER DOSE PT'S H&P SCANNED INTO PT'S CHART IN [facility] ALREADY ON DISCHARGE PATIENT WILL NOT BE PRESCRIBED ANY NARCOTIC PAIN MEDICATIONS FROM THE HOSPITALIST SERVICE , MY PHONE AND PAGER NUMBER LEFT WITH THE NURSE FOR DR OSMAN TO CONTACT ME IN FUTURE FOR ANY QUESTIONS OF CONCERNS Update given to Attending Hospitalist Dr Roger Irving MD Results & Data Results & Data ([facility]) Vital Signs (Past 12 Hours) Vital Signs Temp Pulse Pulse Resp BP Pulse Ox 12/19/19 08:00 96 H 12/19/19 07:00 37.3 C 109 H 22 154/94 H 92
--- NOTE | 2019-12-19 14:37 | Hospitalist Progress Note ---
Date of Service December 19, 2019 Assessment & Plan (1) Altered mental status: Toxic metabolic encephalopathy in the setting of Tramadol overdose in regards to patient's memory deficits -as per ED notes on 12/16/2019 "The patient is a 64-year-old female brought by ambulance for change in mental status. She was found by a neighbor in bed confused. There was an empty bottle of tramadol close by. The patient can give me no history. She is confused, she is clearly altered. She basely moans and cries when stimulated." -admitting hospitalist concerned that changes in mental status from drug overdose. admitting hospitalist checked patient PDMP record checked that Prescription filled on 11/13/2019 : tramadol 50 mg tablet quantity # 42 tablets, and Prescription filled on 11/29/2019 : tramadol 50 mg tablets # 198 tablets -was started on IV fluids with potassium supplements for hypokalemia and empirically started on ceftriaxone IV -12/17/2019 update: Patient cannot recall why she came to the hospital. She cannot give a good description of recent every day life. She recalls watching TV recently about riots in [place] which is accurate as to the recent current events but she could not give a good. She gave phone number of [phone] for Fermin whom she reports is her . Hospitalist called this number and left voicemail with hospital phone number as no one picked up the phone from this number. Hospitalist gave initial assessment that patient being treated for low serum possible and dehydration versus infection which caused leukocytosis. Patient heard this description but more interested in being able to leave the hospital today. Hospitalist reinforced that while understanding her preference of not having protracted hospital stay, that at minimum there has to be available outside contacts that can pick her up. Later hospitalist team finds out that patient's has been for 3 years from therapeutic case manager who contacted patient's friend Maricruz. A psychiatry consult was requested -12/18/2019 update: patient seen this AM and apparently is only starting to r ecognize her memory deficits while sitting up on the bed. She expresses shock that she finds out her has been for 3 years. She had trouble recalling the year and gave and incorrect year. She tried to concentrate where she placed her house keys but could not recall. She could not recall who prescribed her tramadol and other home medications and hospitalist had to tell her of information because of collaborative information from outpatient notes and PDMP. When patient was recounted her medical stay by hospitalist doctor, she was attentive but then during conversation when I, the hospitalist doctor, explaining that I hope further time and IV hydration may help her detox from tramadol and help get her memories back, she tried to manipulate the physician words and accused physician of being emotionally uncaring to her situation that she just found out her has been and because I would cause her to relive painful memories. I emphasize that the goal of her memories to come back is to help her with other aspects of her life such as self-care at home and knowing what medications to take when at home. She calmed down and then explained that she her was the only one in her life whoever loved her - she explains family problems including no further interactions with her sister who appears to be the only family relation alive. -12/19/2019: psychiatry had found suicide note that intended was to be last testatment of patient dating for Wednesday12/15/2019. There is now a 302 in the patient's chart as assessed and authorized by inpatient psychiatry treatment. Patient subsequently seen by hospitalist and patient in no acute distress. She started our conversation talking about current events on television. When hospitalist asked her what she had discussed with psychiatry Dr. Samayoa, patient started to recall meeting Dr. Samayoa in a previous hospital stay. When hospitalist tried to ask her if she recalls writing a suicide note at home, patient seems to be disconnected from those events as if she has no recollection of this although she generally accepts that she had taken too much tramadol. Discussed with patient that the next step is to await for available psychiatry bed in a behavioral health harden and this could be either at [facility] or a different hospital behavioral health unit. Then patient started to talk about a previous stay in a behavioral harden at [place]. During this entire encounter patient was cordial and in no acute distress although she did report of nonspecific body pain due to her history of fibromyalgia. she is breathing comfortably on room air and appears to be medically stable -continue 1 to1 observation, continue contact precautions until C.difficile is ruled out, no acute diarrhea reported, will not offer patient narcotic pain medications (2) Drug overdose: -Urine tox screen positive for metabolites being flagged as components of ecstasy/PCP/opiates/THC (unclear whether some components of patient's outpatient medications can result in being flagged as ecstasy or PCP metabolites) -as it was uncertain of patient's intent of whether intentional or unintentional misuse of tramadol pain medications, patient was empirically placed on suicide precautions with 1 to 1 observation by admitting hospitalist as well as psychiatry consult -12/17/2019 evaluation that patient getting better from initial confusion and not seeming to be suicidal. 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 Bray, Dr. Brink and that has been on prescribed prednisone 5 mg daily chronically for osteoarthritis of the knees. will continue daily prednisone at this time to prevent sudden withdrawal of steroids (4) Hypothyroid: -levothyroxine 50 mcg daily is on outpatient medication lsit -TSH is 0.518 which is in normal reference range so thyroid is not cause of initial altered mental status -can continue home dose levothyroxine Underweight with BMI of 17 -give BOOST supplements with meals (5) Leukocytosis: possible dehydration -admission WBC 14,000, was empirically started on ceftriaxone in case of urinary tract infection but the urine analysis has no bacteria -the BUN/creatinine is not suggestive of pre-renal acute kidney injury but these numbers do not rule put possibility of dehydration at home , also prednisone at home can cause leukocytosis -no fevers to date, WBC is 15,000 on 12/17/2019 -WBC normalized on 12/18/2019, ceftriaxone stopped on 12/18/2019 History of C.difficile in the past -place on contact precautions while inpatient -check C.difficile test in stool if patient can provide sample (6) Hypokalemia: -admission serum potassium 2.2 which had generally normalized after supplementation on this hospital stay -recent serum potassium 3.5 mg, given oral potassium (7) Hypertension: -continue home dose losartan 100 mg daily as per outpatient records -resume chlorthalidone 25 mg daily, give daily 10 meq potassium while on this blood pressure medication Admission and Anticipated Discharge Date Admission Date: December 16, 2019 Subjective psychiatry had found suicide note that intended was to be last testatment of patient dating for Wednesday12/15/2019. There is now a 302 in the patient's chart as assessed and authorized by inpatient psychiatry treatment. Patient subsequently seen by hospitalist and patient in no acute distress. She started our conversation talking about current events on television. When hospitalist asked her what she had discussed with psychiatry Dr. Samayoa, patient started to recall meeting Dr. Samayoa in a previous hospital stay. When hospitalist tried to ask her if she recalls writing a suicide note at home, patient seems to be disconnected from those events as if she has no recollection of this although she generally accepts that she had taken too much tramadol. Discussed with patient that the next step is to await for available psychiatry bed in a behavioral health harden and this could be either at [facility] or a different hospital behavioral health unit. Then patient started to talk about a previous stay in a behavioral harden at [place]. During this entire encounter patient was cordial and in no acute distress although she did report of nonspecific body pain due to her history of fibromyalgia. she is breathing comfortably on room air and appears to be medically stable -continue 1 to1 observation, continue contact precautions until C.difficile is ruled out, no acute diarrhea reported, will not offer patient narcotic pain medications Review of Systems Review of Systems: All systems reviewed & are unremarkable except as noted in Subjective Physical Exam Constitutional: + thin Eyes: PERRL, conjunctivae normal, anicteric sclerae EOM intact bilaterally ENMT: external ear and nose normal, oropharynx normal Neck: normal visual inspection Respiratory: normal respiratory effort, lungs clear to auscultation Cardiovascular: Rate/Rhythm: regular rate Gastrointestinal (Abdomen): normal bowel sounds, soft, nontender, no hepatosplenomegaly Musculoskeletal: Head/Neck/Chest: normocephalic and head atraumatic Neurologic: PERRL, EOMI, accommodation nl, no face palsy, no dysarthria Psychiatric: Orientation: alert and cooperative Results & Data Results & Data ([facility]) Vital Signs (Past 12 Hours) Vital Signs Temp Pulse Pulse Resp BP Pulse Ox 12/19/19 08:00 96 H 12/19/19 07:00 37.3 C 109 H 22 154/94 H 92 (1) Drug overdose Encounter type: initial encounter Injury intent: accidental or unintentional Qualified Code(s): T50.901A - Poisoning by unspecified drugs, medicaments and biological substances, accidental (unintentional), initial encounter (2) Altered mental status Altered mental status type: delirium Qualified Code(s): R41.0 - Disorientation, unspecified
[2019-12-19] MEDS ORDERED: ALUMINUM/MAGNESIUM SUSP 30 ML UDC PO STA (15:56)
[2019-12-19] MEDS: CHLORTHALIDONE 25 MG TAB PO SCH (16:17)
[2019-12-19] MEDS: PANTOprazole 40 MG TAB PO SCH (17:25)
[2019-12-20] MEDS: ACETAMINOPHEN 325 MG TAB PO PRN ×3 (00:33→14:42)
[2019-12-20] MEDS ORDERED: IBUPROFEN 200 MG TAB PO STA (04:08)
[2019-12-20] MEDS: HEPARIN SOD 5,000 UNIT/0.5 ML VIAL SQ SCH ×3 (05:57→20:20)
[2019-12-20] MEDS: LEVOTHYROXINE SODIUM 50 MCG TABLET PO SCH (05:58)
--- NOTE | 2019-12-20 08:19 | Hospitalist Progress Note ---
Date of Service December 20, 2019 Assessment & Plan (1) Altered mental status: Toxic metabolic encephalopathy in the setting of Tramadol overdose in regards to patient's memory deficits Suicidal attempt/depression Suicidal note found by patient's friend, psychiatry aware, plan for inpatient psychiatry treatment -as per ED notes on 12/16/2019 "The patient is a 64-year-old female brought by ambulance for change in mental status. She was found by a neighbor in bed confused. There was an empty bottle of tramadol close by. The patient can give me no history. She is confused, she is clearly altered. She basely moans and cries when stimulated." -admitting hospitalist concerned that changes in mental status from drug overdose. admitting hospitalist checked patient PDMP record checked that Prescription filled on 11/13/2019 : tramadol 50 mg tablet quantity # 42 tablets, and Prescription filled on 11/29/2019 : tramadol 50 mg tablets # 198 tablets -was started on IV fluids with potassium supplements for hypokalemia and empirically started on ceftriaxone IV -12/17/2019 update: Patient cannot recall why she came to the hospital. She cannot give a good description of recent every day life. She recalls watching TV recently about riots in [facility] which is accurate as to the recent current events but she could not give a good. She gave phone number of [phone] for Fermin whom she reports is her . Hospitalist called this number and left voicemail with hospital phone number as no one picked up the phone from this number. Hospitalist gave initial assessment that patient being treated for low serum possible and dehydration versus infection which caused leukocytosis. Patient heard this description but more interested in being able to leave the hospital today. Hospitalist reinforced that while understanding her preference of not having protracted hospital stay, that at minimum there has to be available outside contacts that can pick her up. Later hospitalist team finds out that patient's has been for 3 years from correctional case manager who contacted patient's friend Maricruz. A psychiatry consult was requested -12/18/2019 update: patient seen this AM and apparently is only starting to recognize her memory deficits while sitting up on the bed. She expresses shock that she finds out her has been for 3 years. She had trouble recalling the year and gave and incorrect year. She tried to concentrate where she placed her house keys but could not recall. She could not recall who prescribed her tramadol and other home medications and hospitalist had to tell her of information because of collaborative information from outpatient notes and PDMP. When patient was recounted her medical stay by hospitalist doctor, she was attentive but then during conversation when I, the hospitalist doctor, explaining that I hope further time and IV hydration may help her detox from tramadol and help get her memories back, she tried to manipulate the physician words and accused physician of being emotionally uncaring to her situation that she just found out her has been and because I would cause her to relive painful memories. I emphasize that the goal of her memories to come back is to help her with other aspects of her life such as self-care at home and knowing what medications to take when at home. She calmed down and then explained that she her was the only one in her life whoever loved her - she explains family problems including no further interactions with her sister who appears to be the only family relation alive. -12/19/2019: psychiatry had found suicide note that intended was to be last testatment of patient dating for Wednesday12/15/2019. There is now a 302 in the patient's chart as assessed and authorized by inpatient psychiatry treatment. Patient subsequently seen by hospitalist and patient in no acute distress. She started our conversation talking about current events on television. When hospitalist asked her what she had discussed with psychiatry Dr. Samayoa, patient started to recall meeting Dr. Samayoa in a previous hospital stay. When hospitalist tried to ask her if she recalls writing a suicide note at home, patient seems to be disconnected from those events as if she has no recollection of this although she generally accepts that she had taken too much tramadol. Discussed with patient that the next step is to await for available psychiatry bed in a behavioral health [facility] and this could be either at [facility] or a different hospital behavioral health unit. Then patient started to talk about a previous stay in a behavioral harden at [place]. During this entire encounter patient was cordial and in no acute distress although she did report of nonspecific body pain due to her history of fibromyalgia. she is breathing comfortably on room air and appears to be medically stable -continue 1 to1 observation, continue contact precautions until C.difficile is ruled out, no acute diarrhea reported, will not offer patient narcotic pain medications -12/20/2019: Patient seen and examined in her room, she is sitting up and cooperative, answering most questions appropriately, speech is somewhat pressured. Discussed with psychiatry, who is willing to accept the patient to their care today. Patient is also agreeable, and admission to psychiatry is voluntary. Therefore can cancel 302 filled out yesterday. (2) Drug overdose: -Urine tox screen positive for metabolites being flagged as components of ecstasy/PCP/opiates/THC (unclear whether some components of patient's outpatient medications can result in being flagged as ecstasy or PCP metabolites) -as it was uncertain of patient's intent of whether intentional or unintentional misuse of tramadol pain medications, patient was empirically placed on suicide precautions with 1 to 1 observation by admitting hospitalist as well as psychiatry consult -12/17/2019 evaluation that patient getting better from initial confusion and not seeming to be suicidal. discontinued suicidal precautions and 1 to1 observation -behavioral management as above -Suicidal note was found by patient's friend, psychiatry aware, plan for inpatient psychiatric treatment prolonged QTc is resolved -ED notes reported that initial EKG with QTc of 535 -based on available EKGs uploaded to EMR and reviewed on this admission, the QTc is normal Sinus tachycardia, 4 beat VT -Likely secondary to hypokalemia, potassium replaced, goal K>4 -Patient also states she gets tachycardic when anxious -We will start small dose metoprolol 6.25 twice daily (3) Bipolar disorder: -history of Bipolar disorder -last hospitalization in 01/2019 patient had poor interactions with medical staff and several hospitalists were rotated to her care because she demanded different doctors to treat back pain with narcotic pain medications -case management, PT/OT evaluations -Currently patient is cooperative, and willing to be accepted to inpatient psychiatric care Osteoarthritis, half-way current use of steroids -in reviewing patient's outpatient chart, patient follows with Rheumatology as outpatient with Dr. Bray, Dr. Brink and that has been on prescribed prednisone 5 mg daily chronically for osteoarthritis of the knees. will continue daily prednisone at this time to prevent sudden withdrawal of steroids (4) Hypothyroid: -levothyroxine 50 mcg daily is on outpatient medication list -TSH is 0.518 which is in normal reference range so thyroid is not cause of initial altered mental status -can continue home dose levothyroxine Underweight with BMI of 17 -give BOOST supplements with meals -Recommend nutrition /dietitian consult (5) Leukocytosis: possible dehydration -admission WBC 14,000, was empirically started on ceftriaxone in case of urinary tract infection but the urine analysis has no bacteria -the BUN/creatinine is not suggestive of pre-renal acute kidney injury but these numbers do not rule put possibility of dehydration at home , also prednisone at home can cause leukocytosis -no fevers to date, WBC is 15,000 on 12/17/2019 -WBC normalized on 12/18/2019, ceftriaxone stopped on 12/18/2019 History of C.difficile in the past -C. difficile was checked, negative (6) Hypokalemia: -admission serum potassium 2.2 which had generally normalized after supplementation on this hospital stay -recent serum potassium 3.5, given oral potassium -Recommend oral potassium 20 mg twice a day and recheck level in the morning every 2 days, x3 -I would also recommend to check your potassium and phosphate level once seen by your primary care doctor as outpatient Hypophosphatemia -Likely secondary to poor oral intake, replaced -recommend nutrition consult -Recommend to monitor phosphorus level, in the morning every 2 days, x3 -Also recommend to recheck Phos as outpatient by primary care doctor (7) Hypertension: -continue home dose losartan 100 mg daily as per outpatient records -resume chlorthalidone 25 mg daily, give daily potassium while on this blood pressure medication Admission and Anticipated Discharge Date Admission Date: December 16, 2019 Subjective Patient sitting up in bed, in no acute distress. This morning heart rates in 70s 80s, then higher in the 90s to low 100s. Patient says that she gets anxious and she knows when her vitals are going to be off. She tells me that previously she was talking about her and therefore she knew her heart rate would be elevated. Per telemetry it was reported she also had 4 beat VT earlier this morning. Patient denies any chest pain, shortness of breath, palpitations, dizziness or lightheadedness. Electrolytes checked and patient is hypokalemic. Her phosphorus also low at 2.0. Her BMI is 17.1 and I had a long discussion with her that nutrition is very important for her. She says that previously she would weigh about 130 to 140 pounds and she did not realize that she is so this is a now. Discussed with psychiatry, who feel that she can be admitted to psychiatry unit once medically stable. I recommend nutrition/dietitian consult which Fili (applied psychology professor) agrees to. I would have her potassium and phosphorus checked in the morning every 2 days x 3 to make sure that her levels are within normal limits. Electrolyte abnormality should completely resolve once she has normal oral intake. Patient is otherwise pleasant and cooperative, her speech is somewhat pressured though. Review of Systems Review of Systems: All systems reviewed & are unremarkable except as noted in HPI & below Constitutional: no fever and no chills Respiratory: no cough and no dyspnea Cardiovascular: no chest pain and no palpitations Gastrointestinal: no abdominal pain, no nausea and no vomiting Physical Exam Physical Exam: Constitutional: + thin female sitting up in bed, in no acute distress Eyes: PERRL, conjunctivae normal, anicteric sclerae EOM intact bilaterally ENMT: external ear and nose normal, oropharynx normal Neck: normal visual inspection Respiratory: normal respiratory effort, lungs clear to auscultation Cardiovascular: Rate/Rhythm: regular rate Gastrointestinal (Abdomen): normal bowel sounds, soft, nontender, nondistended Musculoskeletal: Head/Neck/Chest: normocephalic and head atraumatic, moves extremities spontaneously and without difficulty Neurologic: PERRL, EOMI, accommodation nl, no face palsy, no dysarthria, moves extremity spontaneously and without difficulty Psychiatric: Orientation: alert and cooperative, speech somewhat pressured, and affect somewhat anxious Results & Data Results & Data ([facility]) Vital Signs (Past 12 Hours) Vital Signs Temp Pulse Pulse Resp BP BP Pulse Ox 12/20/19 07:35 96 H 12/20/19 07:17 37.4 C 95 H 18 145/92 H 96 12/20/19 04:09 36.7 C 92 H 18 136/75 97 12/20/19 01:10 76 12/19/19 23:00 37.0 C 81 18 144/90 H 98 Laboratory Results 12/20/19 12/20/19 Range/Units Unknown 13:40 Sodium 133 L (136-145) mmol/L Potassium 3.4 L (3.5-5.1) mmol/L Chloride 100 (98-107) mmol/L Carbon Dioxide 29 (21-32) mmol/L Anion Gap 4.0 (3-11) BUN 13 (7-18) mg/dl Creatinine 0.94 (0.6-1.2) mg/dl Est Cr Clr Drug Dosing 47.9 ml/min Est GFR ( Amer) 73.8 Est GFR (Non-Af Amer) 63.7 BUN/Creatinine Ratio 14.2 (10-20) Glucose 122 H (70-99) mg/dl Calcium 10.2 H (8.5-10.1) mg/dl Phosphorus 2.0 L (2.5-4.9) mg/dl Magnesium 2.0 (1.8-2.4) mg/dl Stl C. diff Tox B Gene Negative Cdiff Gene (Neg) Medications Administered Current Inpatient Medications Acetaminophen (Tylenol) 325 mg PO Q6H PRN PRN Reason: Pain or Fever Stop: 01/15/20 21:25 Last Admin: 12/20/19 00:33 Dose: 325 mg Documented by: [facility] Stop: 01/18/20 14:44 Last Admin: 12/19/19 16:17 Dose: 25 mg Documented by: Duloxetine HCl (Cymbalta) 120 mg PO [facility] Stop: 01/17/20 16:29 Last Admin: 12/19/19 08:28 Dose: 120 mg Documented by: Gabapentin (Neurontin) 100 mg PO TID [facility] Stop: 01/17/20 20:59 Last Admin: 12/19/19 21:12 Dose: 100 mg Documented by: Heparin Sodium (Porcine) (Heparin Sodium (Porcine)) 5,000 units SQ Q8 [facility] Stop: 01/15/20 21:59 Last Admin: 12/20/19 05:57 Dose: 5,000 units Documented by: Levothyroxine Sodium (Synthroid) [facility] Stop: 01/17/20 06:29 Last Admin: 12/20/19 05:58 Dose: 50 mcg Documented by: Pantoprazole Sodium (Protonix) [facility] Stop: 01/18/20 15:59 Last Admin: 12/19/19 17:25 Dose: 40 mg Documented by: Polyethylene Glycol (Miralax Powder Packet) 17 gm PO DAILY PRN PRN Reason: Constipation Stop: 01/15/20 21:25 Prednisone (Prednisone) 5 mg PO DAILY [facility] Stop: 01/16/20 16:59 Last Admin: 12/19/19 08:28 Dose: 5 mg Documented by: (1) Altered mental status Altered mental status type: delirium Qualified Code(s): R41.0 - Disorientation, unspecified (2) Drug overdose Encounter type: initial encounter Injury intent: accidental or unintentional Qualified Code(s): T50.901A - Poisoning by unspecified drugs, medicaments and biological substances, accidental (unintentional), initial encounter
[2019-12-20] MEDS: CHLORTHALIDONE 25 MG TAB PO SCH (09:31)
[2019-12-20] MEDS: PANTOprazole 40 MG TAB PO SCH (09:31)
[2019-12-20] MEDS: DULOXETINE HCL 60 MG CAP PO SCH (09:31)
[2019-12-20] MEDS: GABAPENTIN 100 MG CAP PO SCH ×3 (09:32→20:18)
[2019-12-20] MEDS: predniSONE 5 MG TAB PO SCH (09:32)
[2019-12-20 14:27] LABS: BUN Creatinine Ratio 14.2 (10-20); Calcium 10.2 mg/dl (8.5-10.1); Creatinine Clr Calc Pharmacy 47.9 ml/min; Est GFR (African American) 73.8; Est GFR (Non-African American) 63.7; Potassium 3.4 mmol/L (3.5-5.1)
[2019-12-20] MEDS ORDERED: POTASSIUM PHOS 3 MMOL/1 ML INFUSION IV STA (15:00)
[2019-12-20] MEDS ORDERED: POTASSIUM PHOSPHATE 9 MMOL in SODIUM CHLORIDE 0.9% 250 ML IV ONE (15:15)
[2019-12-20] MEDS ORDERED: POTASSIUM CHLORIDE 20 MEQ TABCR PO ONE ×2 (15:15→21:00)
--- NOTE | 2019-12-20 18:56 | Discharge Summary ---
Date of Service December 20, 2019 Admission HPI Per Admitting Provider This is a 64-year-old female point medical history of bipolar mood disorder, depression, chronic back pain Brought to ER as her friend found her in her apartment unresponsive Patient has been taking multiple anti-psychiatric medications and pain medications Empty bottle of tramadol was found: It was filled on 11/13/2019 Patient has been living alone with no friends or family support ER unable to verify how long patient has been unresponsive, patient appears to be very disheveled, dirty, with very dehydrated oral mucosa, crusted lips Appears to be failure to thrive Lab finding :leukocytosis WBC 14 K, elevated hematocrit 45.3 /hemoglobin 16.6 suggestive of dehydration/hemoconcentration Sodium 132, potassium 2.2 Unable to obtain any history from the patient secondary to altered mental st atus, patient wakes up to voice, starts to scream, not able to follow any command Urine tox screen positive for opiates/PCP/ecstasy/marijuana Admission Exam Per Admitting Provider Constitutional: + altered mental status Very disheveled, dry oral mucous membrane, confused, Eyes: + anicteric sclerae ENMT: Mouth: + lip abnormality (Dry/cracked with), + oral mucosal abnormality (Dry) and + tongue abnormality Extremely dry oral mucous membrane with black crust on lips, dry tongue with black crust present Respiratory: normal respiratory effort, lungs clear to auscultation Gastrointestinal (Abdomen): Percussion/Palpation: abdomen soft; abdomen nontender Skin: Very poor skin turgor, Psychiatric: Confused, not oriented to place person, opens eyes with verbal stimuli, gets irritated easily, screaming not able to follow any commands or give any information Principal Diagnosis Altered mental status (Toxic metabolic encephalopathy in the setting of Tramadol overdose in regards to patient's memory deficits) Drug overdose suicidal ideations/ attempt Hypokalemia Hypophosphatemia Discharge Exam Constitutional: + thin female sitting up in bed, in no acute distress Eyes: PERRL, conjunctivae normal, anicteric sclerae EOM intact bilaterally ENMT: external ear and nose normal, oropharynx normal Neck: normal visual inspection Respiratory: normal respiratory effort, lungs clear to auscultation Cardiovascular: Rate/Rhythm: regular rate Gastrointestinal (Abdomen): normal bowel sounds, soft, nontender, nondistended Musculoskeletal: Head/Neck/Chest: normocephalic and head atraumatic, moves extremities spontaneously and without difficulty Neurologic: PERRL, EOMI, accommodation nl, no face palsy, no dysarthria, moves extremity spontaneously and without difficulty Psychiatric: Orientation: alert and cooperative, speech somewhat pressured, and affect somewhat anxious Discharge Data Allergies Allergy/AdvReac Type Severity Reaction Status Date / Time cyclobenzaprine Allergy Intermediate RASH AND Verified 11/28/19 12:08 SWELLING fentanyl Allergy Intermediate MAJOR FEET Verified 11/28/19 12:08 SWELLING ketorolac [From Toradol] Allergy Unknown SEE COMMENT Verified 11/28/19 12:08 oxcarbazepine Allergy Unknown UNKNOWN - Verified 11/28/19 12:08 PT DOESN'T REMEMBER risperidone AdvReac Intermediate exhaustion Verified 11/28/19 12:08 clonazepam AdvReac Mild nausea Verified 11/28/19 12:08 Consultations 12/16/19 18:51 ED Decision to Admit Stat 12/16/19 21:26 Consult Case Management - Discharge Planning Routine 12/17/19 13:23 Consult Psychiatry Routine Ordered Studies 12/16/19 17:00 CT head/brain wo con Stat FINDINGS: No intra or extra-axial mass lesions are visualized. There is no CT evidence of acute cortical infarction. There is no evidence of midline shift. There is no acute hemorrhage. No calvarial fractures are visualized. There are minimal white matter hypodensities likely on a small vessel basis. There is no evidence of pathologic ventricular dilatation. There is no evidence of acute sinusitis IMPRESSION: No acute intracranial findings Hospital Course (1) Altered mental status: Toxic metabolic encephalopathy in the setting of Tramadol overdose in regards to patient's memory deficits Suicidal attempt/depression Suicidal note found by patient's friend, psychiatry aware, plan for inpatient psychiatry treatment -as per ED notes on 12/16/2019 "The patient is a 64-year-old female brought by ambulance for change in mental status. She was found by a neighbor in bed confused. There was an empty bottle of tramadol close by. The patient can give me no history. She is confused, she is clearly altered. She basely moans and cries when stimulated." -admitting hospitalist concerned that changes in mental status from drug overdose. admitting hospitalist checked patient PDMP record checked that Prescription filled on 11/13/2019 : tramadol 50 mg tablet quantity # 42 tablets, and Prescription filled on 11/29/2019 : tramadol 50 mg tablets # 198 tablets -was started on IV fluids with potassium supplements for hypokalemia and empirically started on ceftriaxone IV -12/17/2019 update: Patient cannot recall why she came to the hospital. She cannot give a good description of recent every day life. She recalls watching TV recently about riots in [place] which is accurate as to the recent current events but she could not give a good. She gave phone number of [phone] for Fermin whom she reports is her . Hospitalist called this number and left voicemail with hospital phone number as no one picked up the phone from this number. Hospitalist gave initial assessment that patient being treated for low serum possible and dehydration versus infection which caused leukocytosis. Patient heard this description but more interested in being able to leave the hospital today. Hospitalist reinforced that while understanding her preference of not having protracted hospital stay, that at minimum there has to be available outside contacts that can pick her up. Later hospitalist team finds out that patient's has been for 3 years from behavioral health case manager who contacted patient's friend Maricruz. A psychiatry consult was requested -12/18/2019 update: patient seen this AM and apparently is only starting to recognize her memory deficits while sitting up on the bed. She expresses shock that she finds out her has been for 3 years. She had trouble recalling the year and gave and incorrect year. She tried to concentrate where she placed her house keys but could not recall. She could not recall who prescribed her tramadol and other home medications and hospitalist had to tell her of information because of collaborative information from outpatient notes and PDMP. When patient was recounted her medical stay by hospitalist doctor, she was attentive but then during conversation when I, the hospitalist doctor, explaining that I hope further time and IV hydration may help her detox from tramadol and help get her memories back, she tried to manipulate the physician w kashmir and accused physician of being emotionally uncaring to her situation that she just found out her has been and because I would cause her to relive painful memories. I emphasize that the goal of her memories to come back is to help her with other aspects of her life such as self-care at home and knowing what medications to take when at home. She calmed down and then explained that she her was the only one in her life whoever loved her - she explains family problems including no further interactions with her sister who appears to be the only family relation alive. -12/19/2019: psychiatry had found suicide note that intended was to be last testatment of patient dating for Wednesday12/15/2019. There is now a 302 in the patient's chart as assessed and authorized by inpatient psychiatry treatment. Patient subsequently seen by hospitalist and patient in no acute distress. She started our conversation talking about current events on television. When hospitalist asked her what she had discussed with psychiatry Dr. Samayoa, patient started to recall meeting Dr. Samayoa in a previous hospital stay. When hospitalist tried to ask her if she recalls writing a suicide note at home, patient seems to be disconnected from those events as if she has no recollection of this although she generally accepts that she had taken too much tramadol. Discussed with patient that the next step is to await for available psychiatry bed in a behavioral health harden and this could be either at [facility] or a different hospital behavioral health unit. Then patient started to talk about a previous stay in a behavioral harden at [place]. During this entire encounter patient was cordial and in no acute distress although she did report of nonspecific body pain due to her history of fibromyalgia. she is breathing comfortably on room air and appears to be medically stable -continue 1 to1 observation, continue contact precautions until C.difficile is ruled out, no acute diarrhea reported, will not offer patient narcotic pain medications -12/20/2019: Patient seen and examined in her room, she is sitting up and cooperative, answering most questions appropriately, speech is somewhat pressured. Discussed with psychiatry, who is willing to accept the patient to their care today. Patient is also agreeable, and admission to psychiatry is voluntary. Therefore can cancel 302 filled out yesterday. (2) Drug overdose: -Urine tox screen positive for metabolites being flagged as components of ecstasy/PCP/opiates/THC (unclear whether some components of patient's outpatient medications can result in being flagged as ecstasy or PCP metabolites) -as it was uncertain of patient's intent of whether intentional or unintentional misuse of tramadol pain medications, patient was empirically placed on suicide precautions with 1 to 1 observation by admitting hospitalist as well as psychiatry consult -12/17/2019 evaluation that patient getting better from initial confusion and not seeming to be suicidal. discontinued suicidal precautions and 1 to1 observation -behavioral management as above -Suicidal note was found by patient's friend, psychiatry aware, plan for inpatient psychiatric treatment prolonged QTc is resolved -ED notes reported that initial EKG with QTc of 535 -based on available EKGs uploaded to EMR and reviewed on this admission, the QTc is normal -Try to avoid multiple QT prolonging agents, keep potassium above 4 and Mag above 2 Sinus tachycardia, 4 beat VT -Likely secondary to hypokalemia, potassium replaced, goal K>4 -Patient also states she gets tachycardic when anxious -We will start small dose metoprolol 6.25 twice daily (3) Bipolar disorder: -history of Bipolar disorder -last hospitalization in 01/2019 patient had poor interactions with medical staff and several hospitalists were rotated to her care because she demanded different doctors to treat back pain with narcotic pain medications -case management, PT/OT evaluations -Currently patient is cooperative, and willing to be accepted to inpatient psychiatric care Osteoarthritis, intermediate current use of steroids -in reviewing patient's outpatient chart, patient follows with Rheumatology as outpatient with Dr. Bray, Dr. Brink and that has been on prescribed prednisone 5 mg daily chronically for osteoarthritis of the knees. will continue daily prednisone at this time to prevent sudden withdrawal of steroids (4) Hypothyroid: -levothyroxine 50 mcg daily is on outpatient medication list -TSH is 0.518 which is in normal reference range so thyroid is not cause of initial altered mental status -can continue home dose levothyroxine Underweight with BMI of 17 -give BOOST supplements with meals -Recommend nutrition /dietitian consult (5) Leukocytosis: possible dehydration -admission WBC 14,000, was empirically started on ceftriaxone in case of urinary tract infection but the urine analysis has no bacteria -the BUN/creatinine is not suggestive of pre-renal acute kidney injury but these numbers do not rule put possibility of dehydration at home , also prednisone at home can cause leukocytosis -no fevers to date, WBC is 15,000 on 12/17/2019 -WBC normalized on 12/18/2019, ceftriaxone stopped on 12/18/2019 History of C.difficile in the past -C. difficile was checked, negative (6) Hypokalemia: -admission serum potassium 2.2 which had generally normalized after supplementation on this hospital stay -recent serum potassium 3.5, given oral potassium -Recommend oral potassium 20 mg twice a day and recheck level in the morning every 2 days, x3 -I would also recommend to check potassium and phosphate level once seen by primary care doctor as outpatient Hypophosphatemia -Likely secondary to poor oral intake, replaced -recommend nutrition consult -Recommend to monitor phosphorus level, in the morning every 2 days, x3 -Also recommend to recheck Phos as outpatient by primary care doctor (7) Hypertension: -continue home losartan decreased to 50 mg from 100 mg daily, monitor BP, if elevated increase losartan back to 100 mg daily -resume chlorthalidone 25 mg daily, give daily potassium while on this blood pressure medication Total Time Total Time Spent Total Time Spent (In Minutes): 40 Total Time Includes: Examination of the Patient, Discharge Planning, Medication Reconciliation and Communication With Other Providers Discharge Plan Discharge Items Patient Disposition: Transfer Behavioral Health Fac Reason For Visit: ACCIDENTAL VS INTENTIONAL OVERDOSE Discharge Diagnosis: Altered mental status (Toxic metabolic encephalopathy in the setting of Tramadol overdose in regards to patient's memory deficits) Drug overdose suicidal ideations/ attempt Hypokalemia Hypophosphatemia Condition on Discharge: Fair Activity: Per Instructions section Non-emergency contact: Primary Care Provider and Psychiatrist Call non-emergency contact if: your symptoms worsen Follow-up/Referrals: Arpit Osman MD [Primary Care Provider] - 12/26/19 10:40 am (12/26/2019 10:40 AM Provider Arpit Osman III, MD Department [facility] ) Diet: Regular Addtl Attending Provider Instructions: Patient to be transferred to inpatient psychiatry unit. Recommend nutrition/dietitian consult. Recommend starting potassium 20 mg twice a day and checking potassium in the morning every 2 days x3. Also recommend to recheck her phosphorus level in the morning every 2 days x 3. Started patient on low-dose metoprolol, 6.25 mg twice a day, please continue. Recommend to recheck patient's blood pressure and heart rate about 4 times a day. This dose of metoprolol can be titrated up. After discharge from hospital, from psychiatry unit, recommend close follow-up with PCP and electrolyte check. Pending Studies at Discharge: No Stand-Alone Forms: [facility] [employer] Medications and DC Order Prescriptions: New heparin, porcine (PF) 5,000 unit/0.5 mL Syringe 5,000 unit subcut Q8 7 Days Qty: 10.5 RF: 0 polyethylene glycol 3350 [Miralax] 17 gram Powder In Packet 17 g PO DAILY PRN (Reason: constipation) 7 Days Qty: 7 RF: 0 duloxetine 60 mg Capsule,Delayed Release(Dr/Ec) 120 mg PO QAM 7 Days Qty: 14 RF: 0 pantoprazole 40 mg Tablet,Delayed Release (Dr/Ec) 40 mg PO QAM 7 Days Qty: 7 RF: 0 potassium chloride [Klor-Con M20] 20 mEq Tablet,Er Particles/Crystals 20 meq PO BID 7 Days Qty: 14 RF: 0 metoprolol tartrate 25 mg Tablet 6.25 mg PO BID 7 Days Qty: 3.5 RF: 0 levothyroxine [Synthroid] 50 mcg Tablet 50 mcg PO DAILYBB 7 Days Qty: 7 RF: 0 prednisone 5 mg Tablet 5 mg PO DAILY 7 Days Qty: 7 RF: 0 gabapentin 100 mg Capsule 100 mg PO TID 7 Days Qty: 21 RF: 0 chlorthalidone 25 mg Tablet 25 mg PO QAM 7 Days Qty: 7 RF: 0 Continued calcitriol 0.25 mcg capsule 0.25 mcg PO DAILY Qty: 30 RF: 0 chlorthalidone 25 mg tablet 25 mg PO DAILY RF: 0 acetaminophen [Tylenol Extra Strength] 500 mg tablet 500 mg PO QID PRN (Reason: Pain) RF: 0 prednisone 5 mg Tablet 5 mg PO DAILY RF: 0 levothyroxine [Levoxyl] 50 mcg Tablet 50 mcg PO DAILY RF: 0 ferrous sulfate 325 mg (65 mg iron) Tablet 325 mg PO BID RF: 0 albuterol sulfate 90 mcg/actuation Hfa Aerosol Inhaler 1 puff INHALATION QID PRN (Reason: cough, wheezing) RF: 0 duloxetine [Cymbalta] 60 mg Capsule,Delayed Release(Dr/Ec) 120 mg PO DAILY RF: 0 lamotrigine 200 mg tablet 200 mg PO BID RF: 0 topiramate 100 mg tablet 150 mg PO HS RF: 0 ondansetron HCl [Zofran] 8 mg Tablet 8 mg PO Q8 PRN (Reason: Nausea And Vomiting) RF: 0 hyoscyamine sulfate 0.125 mg Tablet 0.125 mg PO Q4 PRN (Reason: Abdominal Pain) RF: 0 Changed losartan 100 mg Tablet 50 mg PO DAILY Qty: 0 RF: 0 Discontinued acyclovir 5 % ointment 1 appln TOP 6XD RF: 0 tramadol 50 mg Tablet 100 mg PO Q6 PRN (Reason: Pain) RF: 0 potassium chloride [Klor-Con M20] 20 mEq Tablet,Er Particles/Crystals 20 meq PO DAILY RF: 0 gabapentin 300 mg Capsule 1,200 mg PO TID RF: 0 omeprazole 20 mg Capsule,Delayed Release(Dr/Ec) 20 mg PO BID RF: 0 sulfamethoxazole-trimethoprim 200-40 mg/5 mL suspension 0 ml PO BID RF: 0 Discharge Orders: Discharge Order (Routine); Ordered 12/20/19 Ordered By: Yaya Fisher Admission Data Admit Date/Time: 12/16/19 19:14 Attending Provider: Yaya Fisher Admit Provider: Mary Irving Primary Care Provider: Arpit Osman Other Providers: Sesar Duran ; Mary Irving ; Charito Samayoa Other Interventions: Discharge Summary Assessment (RN) Last Done: 12/20/19 18:09
[2019-12-20] MEDS ORDERED: METOPROLOL TARTRATE 25 MG TAB PO SCH (21:00)
[2019-12-20] MEDS ORDERED: POTASSIUM CHLORIDE 20 MEQ TABCR PO SCH (21:00)
== END 2019-12-20 20:31 | DRG 917 ==
LOC: ED 16:10 → SUATTDRO 19:14 → 2W 19:14

== ENCOUNTER 2019-12-20 18:41 | Inpatient (IN) ==
[2019-12-20] MEDS ORDERED: ALBUTEROL HFA 8 GM INHALER INH PRN (21:15)
[2019-12-20] MEDS ORDERED: HYOSCYAMINE SULFATE 0.125 MG TAB PO PRN (21:17)
[2019-12-20] MEDS ORDERED: ONDANSETRON 8MG OD TAB PO PRN (21:21)
[2019-12-20] MEDS ORDERED: ALUMINUM/MAGNESIUM SUSP 30 ML UDC PO PRN (21:26)
[2019-12-20] MEDS ORDERED: SODIUM CHLORIDE 0.65% NA SOLN 45 ML (OCEAN) PRN (21:26)
[2019-12-20] MEDS ORDERED: MAGNESIUM HYDROXIDE SUSP 30 ML UDC PO PRN (21:26)
[2019-12-20] MEDS: ACETAMINOPHEN 325 MG TAB PO PRN (23:45)
[2019-12-21] MEDS: ACETAMINOPHEN 325 MG TAB PO PRN ×4 (06:47→22:31)
[2019-12-21 07:51] LABS: BUN Creatinine Ratio 17.2 (10-20); Creatinine Clr Calc Pharmacy 49.4 ml/min; Est GFR (African American) 74.7; Est GFR (Non-African American) 64.5; Potassium 3.8 mmol/L (3.5-5.1)
[2019-12-21 07:52] LABS: Phosphorus 2.9 mg/dl (2.5-4.9)
[2019-12-21] MEDS: FERROUS SULFATE 325 MG TAB PO SCH ×2 (08:35→17:45)
[2019-12-21] MEDS: LEVOTHYROXINE SODIUM 50 MCG TABLET PO SCH (08:35)
[2019-12-21] MEDS: POTASSIUM CHLORIDE 20 MEQ TABCR PO SCH ×2 (08:36→21:24)
[2019-12-21] MEDS: CHLORTHALIDONE 25 MG TAB PO SCH (08:36)
[2019-12-21] MEDS: METOPROLOL TARTRATE 25 MG TAB PO SCH ×2 (08:37→21:24)
[2019-12-21] MEDS: GABAPENTIN 100 MG CAP PO SCH ×3 (08:39→21:24)
[2019-12-21] MEDS: POLYETHYLENE (MIRALAX) 17 GM PACK PO SCH ×2 (08:39→08:53)
[2019-12-21] MEDS: PANTOprazole 40 MG TAB PO SCH (08:39)
[2019-12-21] MEDS: predniSONE 5 MG TAB PO SCH (08:40)
[2019-12-21] MEDS: CALCITRIOL 0.25 MCG CAPSULE PO SCH (08:40)
[2019-12-21] MEDS ORDERED: DULOXETINE HCL 60 MG CAP PO SCH (09:00)
--- NOTE | 2019-12-21 09:56 | History & Physical ---
Date of Service December 21, 2019 Impression / Recommendations Impression 64y/o female with a history of borderline PD and bipolar II who dropped out of psychiatric treatment several months ago and presented after a suicide attempt by tramadol overdose in the context of social isolation and chronic pain. She was quite medically ill on presentation, and was hospitalized on the medical floor for 4 days before she was stable enough for transfer to the [facility]. She is underweight and malnourished, has not been eating partly as a way to harm herself, and it is unclear when she stopped her lamotrigine and whether or not she was taking duloxetine at home. She reports limited supports and has a history of difficulty with interpersonal relationships, and has been in increasingly isolated due to the recent pandemic and her health issues. Inpatient treatment is medically necessary due to the severity of her symptoms and risk for suicide if discharged. (1) Drug overdose: 12/20 -patient reports overdosing on tramadol in a suicide attempt, and was found with an empty bottle next to her. She had access to large number of pills, but says she does not recall how many she took. Her UDS was + for opiates, THC, PCP, and MDMA. Unfortunately, the sample was insufficient to perform confirmatory tests, so it is not known what else was in her system. Some of these may have been false positives. There has been some concern for substance misuse and cannot rule out other drug use. -Tramadol was discontinued on the medical floor. Recommend avoiding prescription of medications that are addictive, abusable, or lethal in overdose. -Ideally, somebody could bring in old, outdated or stash medications at her home for safe disposal prior to discharge. Encounter type: initial encounter Injury intent: accidental or unintentional Qualified Code(s): T50.901A - Poisoning by unspecified drugs, medicaments and biological substances, accidental (unintentional), initial encounter (2) Borderline personality disorder: 12/20 - Consistent boundaries, identify healthy coping skills. (3) Bipolar II disorder: refer for outpatient therapy.12/20 - current episode depressed. Reviewed past records and medication; patient reports most useful medication regimen was lamotrigine and duloxetine combination. It is unclear when she was last taking this, but she agreed to resume and will start lamotrigine 25mg daily, following standard dose titration schedule. Resume duloxetine 30mg daily and retitrate. -Encourage group attendance and participation, work on healthy coping skills and discharge safety plan. -Offer family meeting, perhaps with friend. -Will need referral for outpatient therapy and psychiatric care. (4) Chronic pain: 6/4 -multifactorial, with fibromyalgia, deconditioning, back pain, carpal tunnel, spinal stenosis, and SI joint disease. We have contacted her Dr. Osman's office to coordinate care, and he indicated that narcotics should be discontinued, recommended use of Tylenol arthritis, Voltaren gel, and gabapentin, as well as a pain management consult. Will encourage gentle stretching, and can offer heating pad and ice packs as needed. She indicates willingness for referral to pain management. -EHOB mattress as she reports the mattress is hard and exacerbated back pain. (5) Hypothyroid: Continue home dose of levothyroxine. TSH on presentation was 0.518. Risk Factors Assessment Male: No : Yes Do You Have Access To A Gun?: No Health Problems: Yes Mental Health Diagnoses: Yes Substance Use Disorders: Yes Previous Attempt: Yes Previous Attempt; Highly Lethal: Yes Family History of Suicide: No Previous Psychiatric Hospitalization: Yes Hopelessness: Yes Smoker: No Protective Factors Assessment [facility] Beliefs: No : No Responsible for Young Children: No Employed: No Stable Relationships: No Supportive Family: No Good Rapport with Provider: No Absence of Any Risk Factors Above: No Psychiatric History Identifying Data GERA RONDON is a 64-year-old F who currently lives in [place] alone, has a history of borderline personality disorder, bipolar disorder, fibromyalgia, and multiple other medical problems, and was admitted on 12/20/19 20:35 on a 201 voluntary commitment after suicide attempt by tramadol overdose, which required a 4-day medical hospitalization. Chief Complaint "I remembered my dying, it all came back to me". History of Present Illness Patient initially presented to the ER 12/16/2019 after a friend found her unresponsive with an empty bottle of tramadol and a handwritten last will and testament. Per documentation, she had filled a tramadol prescription on - 50 mg tablet #42 tablets, and on 11/29/2019 filled tramadol 50 mg tablets #198. UDS was positive for opiates, PCP, MDMA, and marijuana, but confirmatory tests were not able to be performed due to lack of adequate sample. She had electrolyte disarray, with potassium 2.2 and sodium 132, and WBC 14.01. She was on the hospitalist service for 4 days, was initially delirious, thought that her was still alive although he had years prior and was trying to contact him, and said she did not remember anything leading up to her hospitalization, but later reported she had been depressed and suicidal, and endorsed multiple stressors, including dropping out of psychiatric treatment several months prior due to a disagreement with her clinician, isolation, and chronic pain. She has not been able to clarify which, if any, psychotropic medication she has been taking, but did fill a duloxetine prescription in November. At times she requested to leave the hospital, accused staff of being uncaring when they spoke to her about trying to recover her memory, and often answered questions inappropriately or with unrelated information. Her friend, Maricruz, who found her prior to admission was contacted for collateral information, and reported the patient had been complaining of pain but was unaware of suicidal statements prior to her overdose. The patient endorsed multiple stressors, i ncluding the of her a few years ago, isolation due to the COVID pandemic, loneliness, and endorsed depressive symptoms including anhedonia, poor appetite, insomnia, low energy, and hopelessness. She was seen on the psychiatric consult service, and when medically stabilized, agreed to voluntary admission. She told staff that if she would not have been hospitalized, she "probably would have gone home and found another way to end it all," and said she would "probably just overdose." On my assessment, she states she tried to end her life, and "set it up" so that her friend, Maricruz, would find her body when she came to take care of the patient's cats, "I wasn't expecting to wake up again." She says Maricruz comes to help her with the litter box, if she cannot empty it without exacerbating her pain. She feels bad about "putting her in that position," and states she had been feeling increasingly lonely and hopeless, and did not want to continue to live "if it's just going to be like that, it is very difficult to have a reason to smile or things to be happy about." She admits to taking the tramadol overdose, but says she cannot remember how many pills she took, and denies taking any other substances/medications. She endorses depressed mood, hopelessness, helplessness, decreased appetite, low energy, and anhedonia. She has been restricting her oral intake and is aware that she is malnourished and underweight, stating she was partly doing this due to poor appetite and partly as a way to commit suicide. She states her healthy weight is 130-135 pounds, and she has lost weight over a several year period. She denies a history of manic episodes, but states she has been diagnosed with bipolar II. She thinks her most recent medication regimen of lamotrigine and duloxetine was helpful, and would like to resume it. Although she continues to feel depressed, she says "I have a lot of things I need to face and act on, and I feel paralyzed, but I want to work on it. I want to be more responsible as far as my nutrition." She is willing for a referral for outpatient treatment, but repeatedly states she wants to see a "licensed professional." No psychosis, panic, PTSD, OCD. She reports poor psychosocial supports, stating she has been more isolative since her , is estranged from her sister, who is her only living family member, and spends her time home, alone. She does enjoy music, and has interest in social justice causes. Past Psychiatric History Previous Psych History: Reviewed recent treatment w/ Karen Hernandez, diagnoses are borderline PD (primary diagnosis), narcissistic traits, and bipolar II. She dropped out of treatment in 08/2019, after several months of declining therapeutic relationship, as she was very angry and had a lot of complaints. She did not agree with Dr. Hernandez's assessment that her substance use (Tramadol, marijuana, possibly others - got angry when asked) use was contributing to her decompensation, and although she was referred to substance abuse treatment, she did not agree. She didn't want therapy anymore but wanted to continue to come in and "educate" Dr. Hernandez on how she had not been treated the way she thought she should be treated. She was ultimately referred elsewhere for treatment due to the poor therapeutic relationship. She was on duloxetine, lamotrigine, topiramate and lorazepam prn. Current Psychiatric Diagnosis: Bipolar Disorder, borderline personality disorder Outpatient Services: None currently. Previously saw Karen Hernandez, PhD, [employer] at the [facility] psych clinic for both medications and therapy, and had case management with Ramya Santacruz. Previous Psych Admissions: [facility] 09/2017 [facility] 06/2017, 12/2004, 11/2004 Do You Have Access To A Gun?: No History of Previous Suicide Attempt: Yes (2004 - suicide attempts - cut forearm, overdosed on Elavil, and then cut wrists and neck) Past Medication Trials: Includes but not limited to: lurasidone lorazepam Clonazepam duloxetine topiramate gabapentin lamotrigine quetiapine - weght gain risperidone oxcarbazapine Allergies Allergy/AdvReac Type Severity Reaction Status Date / Time cyclobenzaprine Allergy Intermediate RASH AND Verified 11/28/19 12:08 SWELLING fentanyl Allergy Intermediate MAJOR FEET Verified 11/28/19 12:08 SWELLING ketorolac [From Toradol] Allergy Unknown SEE COMMENT Verified 11/28/19 12:08 oxcarbazepine Allergy Unknown UNKNOWN - Verified 11/28/19 12:08 PT DOESN'T REMEMBER risperidone AdvReac Intermediate exhaustion Verified 11/28/19 12:08 clonazepam AdvReac Mild nausea Verified 11/28/19 12:08 Home Medications Home Medications Medication Instructions Recorded Confirmed Type albuterol sulfate 1 puff INHALATION QID PRN 08/18/18 12/20/19 History ferrous sulfate 325 mg PO BID 08/18/18 12/20/19 History prednisone 5 mg PO DAILY 08/18/18 12/20/19 History hyoscyamine sulfate 0.125 mg PO Q4 PRN 01/15/19 12/20/19 History acetaminophen 500 mg tablet 500 mg PO QID PRN 11/28/19 12/20/19 History calcitriol 0.25 mcg capsule 0.25 mcg PO DAILY #30 cap 12/12/19 12/20/19 Rx lamotrigine 200 mg PO BID 12/16/19 12/20/19 History topiramate 150 mg PO HS 12/16/19 12/20/19 History chlorthalidone 25 mg PO QAM 7 Days #7 tab 12/20/19 12/20/19 Rx duloxetine 120 mg PO QAM 7 Days #14 cap 12/20/19 12/20/19 Rx gabapentin 1,200 mg PO TID 12/20/19 12/20/19 History levothyroxine [Synthroid] 50 mcg PO DAILYBB 7 Days #7 tab 12/20/19 12/20/19 Rx losartan 100 mg PO DAILY 12/20/19 12/20/19 History metaxalone 800 mg PO QID 12/20/19 12/20/19 History omeprazole 20 mg PO BID 12/20/19 12/20/19 History potassium chloride [Klor-Con M20] 20 meq PO DAILY 12/20/19 12/20/19 History tramadol 100 mg PO Q6H PRN 12/20/19 12/20/19 History Family History Family History of: Alcoholism/Drug Abuse and Doesn't Know Alcohol History Hx of Alcohol Use Over the Past 12 Months: No AUDIT Total Score: 0 Smoking Use Have You Smoked or Used Tobacco Products in the Last 30 Days: No Smoking Status: Former smoker Substance History Hx of Prescription Med Misuse Over the Past 12 Months: Yes (OD on Tramadol) Hx of Over the Counter Med Misuse Over the Past 12 Months: No Hx of Inhalent Misuse Over the Past 12 Months: No Hx of Organic Substance Use Over the Past 12 Months: Yes (Marijuana "Occasionally") Hx of Illegal Substances/Street Drug Use Over Past 12 Months: No Problems as a Result of Past Substance Use: Sustained Bodily Harm and Attempted Suicide Problems as a Result of Past Substance Use Comments: Hospitalized, worsening psychiatric symptoms Personal History Living Arrangements: Home Living Arrangements Comments: Alone in [place] Born In: [place] Childhood: Patient reports a traumatic childhood, as feels her parents were not loving or supportive, and says she "counted the days" until she could leave home at age 17, and never returned. 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 [employer], and she reports she retired in the mid 90s due to health problems, although records indicate she left due to conflicts with her bosses.) Marital Status: ( 3 years ago, they were together about 20 years.) Number Of Children: 0 -stated she made a conscious decision not to have children, as she did not think she would be a good parent Beliefs That Will Affect Care: None Current Legal Problems: No Hx Traumatic Life Events: Yes Psychological Trauma History Comment: Difficult childhood with uncaring parents, cared for until he of Alzheimer's dementia Patient History Social History Preferred Language: French Communication Ability: Effective Legal Editor Required: No Beliefs That Will Affect Care: None marital status: / Current Living Situation: Alone current occupational status: retired Feels Safe at Home: Yes Smoking Status: Former smoker Hx Alcohol Use: No Review of Systems Review of Systems: All systems reviewed & are unremarkable except as noted in HPI & below Physical Exam Psychiatric: Orientation: alert, oriented x 3 and cooperative Very thin female appearing her stated age. Dressed in scrub pants and a cotton turtleneck top. Shoulder length hair, dyed orange at the bottom. Wearing glasses, adequate hygiene and grooming. Seated in no acute distress. Eye Contact: good eye contact Motor Behavior: steady gait and station (Slow, with walker) and no abnormal motor movements Overproductive speech, dramatic style of speech Affect: + labile affect Mood: + depressed mood Thought Process: + circumstantial thought process and + tangential thought process Thought Content: + cognitive distortions, + hopelessness, + loneliness and + guilt Suicidal Thoughts: + reports suicidal thoughts Homicidal Thoughts: denies homicidal thoughts Hallucinations: no auditory hallucinations and no visual hallucinations Cognition: language grossly intact; + recent memory not intact and + attention not intact Insight: + impaired insight Judgement: + impaired judgement Vital Signs (Past 24 Hours): Last Vital Signs Temp 36.8 C 12/21/19 07:02 Pulse 125 H 12/21/19 07:05 Resp 18 12/21/19 07:02 BP 166/112 H 12/21/19 07:05 Pulse Ox 96 12/20/19 21:40 Exam Statement: A physical exam was performed on the medical floor prior to admission to the unit by Dr. Fisher. I accept that physical as correct/medical clearance for the inpatient physical exam. Results & Data ([facility]) Laboratory Results Laboratory Results - last 24 hr 12/21/19 07:03 Sodium 139 Potassium 3.8 Chloride 106 Carbon Dioxide 26 Anion Gap 7.0 BUN 16 Creatinine 0.93 Est Cr Clr Drug Dosing 49.4 Est GFR ( Amer) 74.7 Est GFR (Non-Af Amer) 64.5 BUN/Creatinine Ratio 17.2 Glucose 124 H Calcium 10.0 Phosphorus 2.9 Current Inpatient Medications Current Inpatient Medications: Current Inpatient Medications Acetaminophen (Tylenol) 650 mg PO Q4H PRN PRN Reason: Headache or Minor Fever Stop: 01/19/20 21:25 Last Admin: 12/21/19 06:47 Dose: 650 mg Documented by: Al Hydrox/Mg Hydrox/Simethicone (Maalox) 30 ml PO Q4H PRN PRN Reason: GI Upset Stop: 01/19/20 21:25 Albuterol (Ventolin Hfa) 1 puffs INH QID PRN PRN Reason: Cough/Wheezing Stop: 01/20/20 08:59 Bismuth Subsalicylate (Kaopectate) 15 ml PO PRN PRN PRN Reason: Loose Stool Stop: 01/19/20 21:25 Calcitriol (Rocaltrol) [facility].25 [facility]cg [facility] [place] Stop: 01/20/20 08:59 Last Admin: 12/21/19 08:40 Dose: 0.25 mcg Documented by: Chlorthalidone (Hygroton) 25 mg PO QAM [facility] Stop: 01/20/20 08:59 Last Admin: 12/21/19 08:36 Dose: 25 mg Documented by: Ferrous Sulfate (Feosol) 325 mg PO BIDM [facility] Stop: 01/20/20 08:59 Last Admin: 12/21/19 08:35 Dose: 325 mg Documented by: Gabapentin (Neurontin) 100 mg PO TID [facility] Stop: 01/20/20 08:59 Last Admin: 12/21/19 08:39 Dose: 100 mg Documented by: Hydroxyzine HCl (Vistaril) 50 mg PO HSZ PRN PRN Reason: Insomnia Stop: 01/19/20 21:25 Last Admin: 12/20/19 23:53 Dose: 50 mg Documented by: Hydroxyzine HCl (Vistaril) 25 mg PO Q4H PRN PRN Reason: Anxiety Stop: 01/19/20 21:25 Hyoscyamine (Levsin) 0.125 mg PO Q4H PRN PRN Reason: abdominal pain Stop: 01/19/20 21:16 Levothyroxine Sodium (Synthroid) 50 mcg PO DAILYBB [facility] Stop: 01/20/20 07:59 Last Admin: 12/21/19 08:35 Dose: 50 mcg Documented by: Magnesium Hydroxide (Milk Of Magnesia) 30 ml PO DAILY PRN PRN Reason: Constipation Stop: 01/19/20 21:25 Metoprolol Tartrate (Lopressor) 6.25 mg PO BID [facility] Stop: 01/20/20 08:59 Last Admin: 12/21/19 08:37 Dose: 6.25 mg Documented by: Ondansetron HCl (Zofran Odt) 8 mg PO Q8H PRN PRN Reason: Nausea/Vomiting Stop: 01/19/20 21:20 Pantoprazole Sodium (Protonix) 40 mg PO QAM [facility] Stop: 01/20/20 08:59 Last Admin: 12/21/19 08:39 Dose: 40 mg Documented by: Polyethylene Glycol (Miralax Powder Packet) 17 gm PO DAILY [facility] Stop: 01/20/20 08:59 Last Admin: 12/21/19 08:53 Dose: Not Given Documented by: Potassium Chloride (Klor-Con M20) 20 meq PO BID [facility] Stop: 01/20/20 08:59 Last Admin: 12/21/19 08:36 Dose: 20 meq Documented by: Prednisone (Prednisone) 5 mg PO DAILY [facility] Stop: 01/20/20 08:59 Last Admin: 12/21/19 08:40 Dose: 5 mg Documented by: Sodium Chloride ([place] Nasal) 1 - 2 sprays NA PRN PRN PRN Reason: Nasal Dryness/Congestion Stop: 01/19/20 21:25
[2019-12-21] MEDS ORDERED: DICLOFENAC SOD 1% GEL 100 GM TUBE EXT PRN (12:12)
[2019-12-21] MEDS: lamoTRIgine 25 MG TAB PO SCH (12:54)
[2019-12-21] MEDS: DULOXETINE HCL 30 MG CAP PO SCH (12:54)
[2019-12-21] MEDS: DICLOFENAC SOD 1% GEL 100 GM TUBE EXT PRN ×2 (16:20→23:11)
[2019-12-22] MEDS: ACETAMINOPHEN 325 MG TAB PO PRN ×4 (06:42→23:45)
[2019-12-22] MEDS: LEVOTHYROXINE SODIUM 50 MCG TABLET PO SCH (07:31)
[2019-12-22] MEDS: DULOXETINE HCL 30 MG CAP PO SCH (07:32)
[2019-12-22] MEDS: FERROUS SULFATE 325 MG TAB PO SCH ×2 (07:33→17:06)
[2019-12-22] MEDS: lamoTRIgine 25 MG TAB PO SCH (07:34)
[2019-12-22] MEDS: METOPROLOL TARTRATE 25 MG TAB PO SCH ×2 (07:34→21:29)
[2019-12-22] MEDS: POTASSIUM CHLORIDE 20 MEQ TABCR PO SCH ×2 (07:34→21:26)
[2019-12-22] MEDS: CHLORTHALIDONE 25 MG TAB PO SCH (07:34)
[2019-12-22] MEDS: GABAPENTIN 100 MG CAP PO SCH ×2 (07:37→13:40)
[2019-12-22] MEDS: predniSONE 5 MG TAB PO SCH (07:37)
[2019-12-22] MEDS: PANTOprazole 40 MG TAB PO SCH (07:37)
[2019-12-22] MEDS: CALCITRIOL 0.25 MCG CAPSULE PO SCH (07:38)
[2019-12-22] MEDS: POLYETHYLENE (MIRALAX) 17 GM PACK PO SCH (08:03)
--- NOTE | 2019-12-22 09:09 | Psychiatric Progress Note ---
Date of Service December 22, 2019 Impression / Recommendations Impression 64y/o female with a history of borderline PD and bipolar II who dropped out of psychiatric treatment several months ago and presented after a suicide attempt by tramadol overdose in the context of social isolation and chronic pain. She was quite medically ill on presentation, and was hospitalized on the medical floor for 4 days before she was stable enough for transfer to the [facility]. She is underweight and malnourished, has not been eating partly as a way to harm herself, and it is unclear when she stopped her lamotrigine and whether or not she was taking duloxetine at home. She reports limited supports and has a history of difficulty with interpersonal relationships, and has been in increasingly isolated due to the recent pandemic and her health issues. Inpatient treatment is medically necessary due to the severity of her symptoms and risk for suicide if discharged. (1) Drug overdose: 12/20 -patient reports overdosing on tramadol in a suicide attempt, and was found with an empty bottle next to her. She had access to large number of pills, but says she does not recall how many she took. Her UDS was + for opiates, THC, PCP, and MDMA. Unfortunately, the sample was insufficient to perform confirmatory tests, so it is not known what else was in her system. Some of these may have been false positives. There has been some concern for substance misuse and cannot rule out other drug use. -Tramadol was discontinued on the medical floor. Recommend avoiding prescription of medications that are addictive, abusable, or lethal in overdose. -Ideally, somebody could bring in old, outdated or stash medications at her home for safe disposal prior to discharge. 12/21 - Pt reports she has been processing her suicide attempt. Stating "I'm obviously better off being alive, but I truly did not think I would wake up." - Does deny SI at this time, but is still processing and safety planning (2) Borderline personality disorder: 12/20 - Consistent boundaries, identify healthy coping skills. 12/21 - Information provided by patient's former psychiatric prescriber and patient's behavior on the unit would suggest that this is the patient's primary diagnosis - Pt would benefit from DBT; however, options for this are very limited in our geographic region - Re-establish outpatient therapy (3) Bipolar II disorder: refer for outpatient therapy.12/20 - current episode depressed. Reviewed past records and medication; patient reports most useful medication regimen was lamotrigine and duloxetine combination. It is unclear when she was last taking this, but she agreed to resume and will start lamotrigine 25mg daily, following standard dose titration schedule. Resume duloxetine 30mg daily and retitrate. -Encourage group attendance and participation, work on healthy coping skills and discharge safety plan. -Offer family meeting, perhaps with friend. -Will need referral for outpatient therapy and psychiatric care. 12/21 - Continue lamotrigine 25mg with standard titration. Reviewed hesitancy for rapid titration of duloxetine given her history of bipolar II diagnosis. We did discuss at least increasing duloxetine to 40mg tomorrow morning, as it is also being utilized to target her chronic pain concerns. - Gabapentin also increased to 300mg TID starting with this evening's dose. - Reviewed recommendation for outpatient case management, therapy referral and psychiatry referral. Pt was willing for this and information was passed along to social work. - Pt denying SI, but continues to be highly focused on her chronic pain being the root of her problems and still being "very poorly controlled." (4) Chronic pain: 12/20 -multifactorial, with fibromyalgia, deconditioning, back pain, carpal tunnel, spinal stenosis, and SI joint disease. We have contacted her Dr. Osman's office to coordinate care, and he indicated that narcotics should be discontinued, recommended use of Tylenol arthritis, Voltaren gel, and gabapentin, as well as a pain management consult. Will encourage gentle stretching, and can offer heating pad and ice packs as needed. She indicates willingness for referral to pain management. -EHOB mattress as she reports the mattress is hard and exacerbated back pain. 12/21 - Patient's case coordinated with Dr. Osman yesterday. Pt tolerating Voltaren gel, recommend pain management referral on an outpatient basis - If significant exacerbation in pain during her stay, could consider pain man agement consultation - Pt is stating that she attending a pain management consultation and was started on steroid injections that "wore off far too quickly" (5) Hypothyroid: Continue home dose of levothyroxine. TSH on presentation was 0.518. Risk Factors Assessment Male: No : Yes Do You Have Access To A Gun?: No Health Problems: Yes Mental Health Diagnoses: Yes Substance Use Disorders: Yes Previous Attempt: Yes Previous Attempt; Highly Lethal: Yes Family History of Suicide: No Previous Psychiatric Hospitalization: Yes Hopelessness: Yes Smoker: No Protective Factors Assessment Jewish Beliefs: No : No Responsible for Young Children: No Employed: No Stable Relationships: No Supportive Family: No Good Rapport with Provider: No Absence of Any Risk Factors Above: No Interval History Identifying Information GERA RONDON is a 64-year-old F who currently lives in [place] alone, has a history of borderline personality disorder, bipolar disorder, fibromyalgia, and multiple other medical problems, and was admitted on 12/20/19 20:35 on a 201 voluntary commitment after suicide attempt by tramadol overdose, which required a 4-day medical hospitalization. Chief Complaint "I just need to share that I appreciate all the help people have tried to give as far as making these accommodations tolerable." Review of Systems Notes Constitutional: chronic diffuse pain, poor sleep related to this concern. Mild improvement in appetite. Cardiovascular: denied Respiratory: denied Gastrointestinal: denied Neurological: denied Psychiatric: denies symptoms other than stated above Total of at least 10 systems reviewed, pertinent positives as above and in HPI. Sleep Information Total Hours of Sleep: 5 Sleep Comments: reported being "excited" about being admitted here- difficulty falling asleep. Meal Information Percent Meal Consumed - Breakfast: 100 Percent Meal Consumed - Lunch: 80 Percent Meal Consumed - Dinner: 90 Subjective Subjective Patient was seen & assessed and interval progress reviewed with treatment team. Staff report the patient has been attending group programming and has been rather talkative with peers. Pt has been ambivalent about sucidiality when discussing with staff, at times denying SI but then also making comments suggesting the patient 'didn't want to live with the pain'. Pt rated her mood a 4/10 and "anxious" last evening. Pt was seen today to assess progress since admission. Pt states she is still in significant pain, but especially wanted to state "I just need to share that I appreciate all the help people have tried to give as far as making these accommodations tolerable." Pt proceeded to verbalize her struggles with coping with pain. She states "I really think I overdid it yesterday, I did a lot more activity than I normally do at home. You know, it's a challenge just to hold my torso erect." Pt states that she did follow through with a pain management referral, and was given a steroid injection which she claims "wore off far too quickly." Pt does report that the Voltaren Gel has been helpful but "does not take it away entirely by any means." Pt does state that she has found benefit from low-impact exercise in the past. Pt reports her mood is "improving everyday" and denies SI, stating "I'm better off being alive." Pt states "I truly did not think I would wake up, and I had to apologize profusely to my friend for what I had done." Pt continues our conversation and discusses her history of various relationships. She states that she has struggled with trust in relationships, reporting "I need to start being able to trust myself first, then I can start trusting others." Pt shares a story about a friendship of 45 years that dissolved around the same time as her 's . Pt states that she is willing for outpatient referrals for therapy and medication management, as well as case management. She states she also benefitted in the past from a support group for females with chronic pain. She denies other needs at this time. Physical Exam Psychiatric Orientation: alert and oriented x 3 Apperance: appropriately dressed, appropriately groomed and appeared stated age wearing bright blue corrective lenses, tips of shoulder-length hair are dyed red. Pt holding cane, pillow, and a banana as she ambulates the unit Eye Contact: + fair eye contact Motor Behavior: steady gait and station (holds cane when walking, cautious but steady ambulation) Thought Content: + cognitive distortions (most consistent with personality disorder diagnoses), + hopelessness (intermittently, but improving over course of admission), + loneliness and + guilt ("I had to apologize profusely to my friend for what I had done"); no delusions Suicidal Thoughts: denies suicidal thoughts Homicidal Thoughts: denies homicidal thoughts Hallucinations: no auditory hallucinations and no visual hallucinations Cognition: recent memory grossly intact and attention grossly intact Estimated Intelligence: consistent with education level Insight: + limited insight (likely consistent with borderline PD diagnosis) Judgement: + limited judgement (likely consistent with borderline PD diagnosis) Vital Signs (Past 24 Hours) Last Vital Signs Temp 36.6 C 12/22/19 06:24 Pulse 94 H 12/22/19 06:25 Resp 18 12/22/19 06:24 BP 144/89 H 12/22/19 06:25 Pulse Ox 96 12/20/19 21:40 Results & Data ([facility]) Current Inpatient Medications Current Inpatient Medications: Current Inpatient Medications Acetaminophen (Tylenol) 650 mg PO Q4H PRN PRN Reason: Headache or Minor Fever Stop: 01/19/20 21:25 Last Admin: 12/22/19 06:42 Dose: 650 mg Documented by: Al Hydrox/Mg Hydrox/Simethicone (Maalox) 30 ml PO Q4H PRN PRN Reason: GI Upset Stop: 01/19/20 21:25 Last Admin: 12/21/19 23:12 Dose: 30 ml Documented by: Albuterol (Ventolin Hfa) 1 puffs INH QID PRN PRN Reason: Cough/Wheezing Stop: 01/20/20 08:59 Bismuth Subsalicylate (Kaopectate) 15 ml PO PRN PRN PRN Reason: Loose Stool Stop: 01/19/20 21:25 Calcitri[facility] ([facility]) [facility] Stop: 01/20/20 08:59 Last Admin: 12/22/19 07:38 Dose: 0.25 mcg Documented by: Chlorthalidone (Hygroton) [facility] [place] Stop: 01/20/20 08:59 Last Admin: 12/22/19 07:34 Dose: 25 mg Documented by: Diclofenac Sodium (Voltaren 1% Top) 2 gm EXT Q6H PRN PRN Reason: pain Stop: 01/20/20 11:44 Last Admin: 12/21/19 23:11 Dose: 2 gm Documented by: Duloxetine HCl (Cymbalta) [facility] [place] Stop: 01/20/20 11:59 Last Admin: 12/22/19 07:32 Dose: 30 mg Documented by: Ferrous Sulfate (Feosol) 325 mg PO BIDM [facility] Stop: 01/20/20 08:59 Last Admin: 12/22/19 07:33 Dose: 325 mg Documented by: Gabapentin (Neurontin) 100 mg PO TID [facility] Stop: 01/20/20 08:59 Last Admin: 12/22/19 07:37 Dose: 100 mg Documented by: Hydroxyzine HCl (Vistaril) 50 mg PO HSZ PRN PRN Reason: Insomnia Stop: 01/19/20 21:25 Last Admin: 12/22/19 00:37 Dose: 50 mg Documented by: Hydroxyzine HCl (Vistaril) 25 mg PO Q4H PRN PRN Reason: Anxiety Stop: 01/19/20 21:25 Hyoscyamine (Levsin) 0.125 mg PO Q4H PRN PRN Reason: abdominal pain Stop: 01/19/20 21:16 Lamotrigine (Lamictal) 25 mg PO QAM [facility] Stop: 01/20/20 11:59 Last Admin: 12/22/19 07:34 Dose: 25 mg Documented by: Levothyroxine Sodium (Synthroid) 50 mcg PO DAILYBB [facility] Stop: 01/20/20 07:59 Last Admin: 12/22/19 07:31 Dose: 50 mcg Documented by: Magnesium Hydroxide (Milk Of Magnesia) 30 ml PO DAILY PRN PRN Reason: Constipation Stop: 01/19/20 21:25 Metoprolol Tartrate (Lopressor) 6.25 mg PO BID [facility] Stop: 01/20/20 08:59 Last Admin: 12/22/19 07:34 Dose: 6.25 mg Documented by: Ondansetron HCl (Zofran Odt) 8 mg PO Q8H PRN PRN Reason: Nausea/Vomiting Stop: 01/19/20 21:20 Pantoprazole Sodium (Protonix) [facility] [place] Stop: 01/20/20 08:59 Last Admin: 12/22/19 07:37 Dose: 40 mg Documented by: Polyethylene Glycol (Miralax Powder Packet) 17 gm PO DAILY [facility] Stop: 01/20/20 08:59 Last Admin: 12/22/19 08:03 Dose: 17 gm Documented by: Potassium Chloride (Klor-Con M20) 20 meq PO BID [facility] Stop: 01/20/20 08:59 Last Admin: 12/22/19 07:34 Dose: 20 meq Documented by: Prednisone (Prednisone) 5 mg PO DAILY [facility] Stop: 01/20/20 08:59 Last Admin: 12/22/19 07:37 Dose: 5 mg Documented by: Sodium Chloride (Morris Nasal) 1 - 2 sprays NA PRN PRN PRN Reason: Nasal Dryness/Congestion Stop: 01/19/20 21:25 Mental Health & Subst Abuse Tx Therapist Name of Therapist: None Wood Preparation Supervisor Name of Wood Preparation Supervisor: None Post Discharge Appointments Primary Care Physician Name Of Family Doctor: Arpit Osman Contact Information Discharge Discharge Address: [address] [place] [address] (1) Drug overdose Encounter type: initial encounter Injury intent: accidental or unintentional Qualified Code(s): T50.901A - Poisoning by unspecified drugs, medicaments and biological substances, accidental (unintentional), initial encounter
[2019-12-22] MEDS: DICLOFENAC SOD 1% GEL 100 GM TUBE EXT PRN (18:29)
[2019-12-22] MEDS: GABAPENTIN 300 MG CAP PO SCH (21:28)
[2019-12-23] MEDS: BISMUTH SUBSALICYLATE PER ML OMNICELL CHARGE PO PRN ×2 (05:47→07:23)
[2019-12-23] MEDS: POTASSIUM CHLORIDE 20 MEQ TABCR PO SCH (07:27)
[2019-12-23] MEDS: CALCITRIOL 0.25 MCG CAPSULE PO SCH (07:27)
[2019-12-23] MEDS: predniSONE 5 MG TAB PO SCH (07:27)
[2019-12-23] MEDS: GABAPENTIN 300 MG CAP PO SCH ×2 (07:27→15:24)
[2019-12-23] MEDS: lamoTRIgine 25 MG TAB PO SCH (07:27)
[2019-12-23] MEDS: CHLORTHALIDONE 25 MG TAB PO SCH (07:28)
[2019-12-23] MEDS: LEVOTHYROXINE SODIUM 50 MCG TABLET PO SCH (07:28)
[2019-12-23] MEDS: PANTOprazole 40 MG TAB PO SCH (07:28)
[2019-12-23] MEDS: FERROUS SULFATE 325 MG TAB PO SCH (07:28)
[2019-12-23] MEDS: METOPROLOL TARTRATE 25 MG TAB PO SCH (07:28)
[2019-12-23] MEDS: POLYETHYLENE (MIRALAX) 17 GM PACK PO SCH (07:33)
[2019-12-23] MEDS: ACETAMINOPHEN 325 MG TAB PO PRN (08:15)
[2019-12-23] MEDS: DICLOFENAC SOD 1% GEL 100 GM TUBE EXT PRN (08:16)
[2019-12-23] MEDS ORDERED: DULOXETINE HCL 20 MG CAP PO SCH (09:00)
--- NOTE | 2019-12-23 12:28 | Psychiatric Progress Note ---
Date of Service December 23, 2019 Impression / Recommendations Impression 64y/o female with a history of borderline PD and bipolar II who dropped out of psychiatric treatment several months ago and presented after a suicide attempt by tramadol overdose in the context of social isolation and chronic pain. She was quite medically ill on presentation, and was hospitalized on the medical floor for 4 days before she was stable enough for transfer to the [facility]. She is underweight and malnourished, has not been eating partly as a way to harm herself, and it is unclear when she stopped her lamotrigine and whether or not she was taking duloxetine at home. She reports limited supports and has a history of difficulty with interpersonal relationships, and has been in increasingly isolated due to the recent pandemic and her health issues. Inpatient treatment is medically necessary due to the severity of her symptoms and risk for suicide if discharged. REviewed. Currently c/o hip pain and inability to walk, films pending. (1) Drug overdose: 12/20 -patient reports overdosing on tramadol in a suicide attempt, and was found with an empty bottle next to her. She had access to large number of pills, but says she does not recall how many she took. Her UDS was + for opiates, THC, PCP, and MDMA. Unfortunately, the sample was insufficient to perform confirmatory tests, so it is not known what else was in her system. Some of these may have been false positives. There has been some concern for substance misuse and cannot rule out other drug use. -Tramadol was discontinued on the medical floor. Recommend avoiding prescri ption of medications that are addictive, abusable, or lethal in overdose. -Ideally, somebody could bring in old, outdated or stash medications at her home for safe disposal prior to discharge. 12/21 - Pt reports she has been processing her suicide attempt. Stating "I'm obviously better off being alive, but I truly did not think I would wake up." - Does deny SI at this time, but is still processing and safety planning Reviewed. (2) Borderline personality disorder: 12/20 - Consistent boundaries, identify healthy coping skills. 12/21 - Information provided by patient's former psychiatric prescriber and patient's behavior on the unit would suggest that this is the patient's primary diagnosis - Pt would benefit from DBT; however, options for this are very limited in our geographic region - Re-establish outpatient therapy Reviewed. (3) Bipolar II disorder: refer for outpatient therapy.12/20 - current episode depressed. Reviewed past records and medication; patient reports most useful medication regimen was lamotrigine and duloxetine combination. It is unclear when she was last taking this, but she agreed to resume and will start lamotrigine 25mg daily, following standard dose titration schedule. Resume duloxetine 30mg daily and retitrate. -Encourage group attendance and participation, work on healthy coping skills and discharge safety plan. -Offer family meeting, perhaps with friend. -Will need referral for outpatient therapy and psychiatric care. 12/21 - Continue lamotrigine 25mg with standard titration. Reviewed hesitancy for rapid titration of duloxetine given her history of bipolar II diagnosis. We did discuss at least increasing duloxetine to 40mg tomorrow morning, as it is also being utilized to target her chronic pain concerns. - Gabapentin also increased to 300mg TID starting with this evening's dose. - Reviewed recommendation for outpatient case management, therapy referral and psychiatry referral. Pt was willing for this and information was passed along to social work. - Pt denying SI, but continues to be highly focused on her chronic pain being the root of her problems and still being "very poorly controlled." Reviewed 12/22. (4) Chronic pain: 12/20 -multifactorial, with fibromyalgia, deconditioning, back pain, carpal tunnel, spinal stenosis, and SI joint disease. We have contacted her Dr. Osman's office to coordinate care, and he indicated that narcotics should be discontinued, recommended use of Tylenol arthritis, Voltaren gel, and gabapentin, as well as a pain management consult. Will encourage gentle stretching, and can offer heating pad and ice packs as needed. She indicates willingness for referral to pain management. -EHOB mattress as she reports the mattress is hard and exacerbated back pain. 12/21 - Patient's case coordinated with Dr. Osman yesterday. Pt tolerating Voltaren gel, recommend pain management referral on an outpatient basis - If significant exacerbation in pain during her stay, could consider pain management consultation - Pt is stating that she attending a pain management consultation and was started on steroid injections that "wore off far too quickly" Reviewed. 12/22 acute onset of left hip pain with decreased ROM, unable to bare weight. [facility] hospitalist agrees with ortho consult, spoke with Dr. Doan. Will order PA and Lat views of left hip and L spine. With additional intervention as indicated. (5) Hypothyroid: Continue home dose of levothyroxine. TSH on presentation was 0.518. Reviewed. Risk Factors Assessment Male: No : Yes Do You Have Access To A Gun?: No Health Problems: Yes Mental Health Diagnoses: Yes Substance Use Disorders: Yes Previous Attempt: Yes Previous Attempt; Highly Lethal: Yes Family History of Suicide: No Previous Psychiatric Hospitalization: Yes Hopelessness: Yes Smoker: No Protective Factors Assessment Bahai Beliefs: No : No Responsible for Young Children: No Employed: No Stable Relationships: No Supportive Family: No Good Rapport with Provider: No Absence of Any Risk Factors Above: No Interval History Identifying Information GERA RONDON is a 64-year-old F who currently lives in [place] alone, has a history of borderline personality disorder, bipolar disorder, fibromyalgia, and multiple other medical problems, and was admitted on 12/20/19 20:35 on a 201 voluntary commitment after suicide attempt by tramadol overdose, which required a 4-day medical hospitalization. Chief Complaint "I'm in pain, can't trust the medical establishment, when I was young I lost a cat because my parents wouldn't listen". Review of Systems Sleep Information Total Hours of Sleep: 2.75 Sleep Comments: martell received prn doses of vistaril for sleep and anxiety. she received doses of levsin then kaopaectate for management of ongoing diarrhea she had 3 episodes of diarrhea on the 05/25 shift Meal Information Percent Meal Consumed - Breakfast: 50 Percent Meal Consumed - Lunch: 100 Percent Meal Consumed - Dinner: 75 Nutrition Comment: ducumented from the pt. meal record Subjective Subjective Patient was seen & assessed and interval progress reviewed with nursing and social work. Tends to talk alot in group. Ongoing somatic focus. Clear she will not return to psych clinic. She focussed on Dr. Osman "retiring soon" and leaving her, unsure she wants to continue with [facility] services given their stance on medical marijuana which she feels is the one thing that has been helpful for her. Reviewed med list. Has had diarrhea which she is attributing to Miralax which is now d/c. Approximately 20 min after meeting with me she screamed out in pain, staff already at bedside, states her upper thigh has to stay flexed and is "locked" meaning can't rotate "out of it" or extend her LLE. She rates pain as 7/10. On exam there is some protuberance above surgical scar/trochanter. can't compare to other side as unable to rotate off of her side. She is point tender a few inches below surgical scar on upper femur. Physical Exam Psychiatric Orientation: alert, oriented x 3 and cooperative Apperance: appropriately dressed, appropriately groomed and appeared stated age Eye Contact: good eye contact and + fair eye contact Motor Behavior: steady gait and station (holds cane when walking, cautious but steady ambulation) and no abnormal motor movements Affect: + labile affect Mood: + depressed mood Thought Process: + circumstantial thought process and + tangential thought process Thought Content: + cognitive distortions (most consistent with personality disorder diagnoses) and + loneliness; no delusions Suicidal Thoughts: denies suicidal thoughts Homicidal Thoughts: denies homicidal thoughts Hallucinations: no auditory hallucinations and no visual hallucinations Cognition: recent memory grossly intact, attention grossly intact and language grossly intact Estimated Intelligence: consistent with education level Insight: + limited insight (likely consistent with borderline PD diagnosis) and + impaired insight Judgement: + impaired judgement Vital Signs (Past 24 Hours) Last Vital Signs Temp 36.7 C 12/23/19 06:08 Pulse 103 H 12/23/19 06:09 Resp 18 12/23/19 06:08 BP 132/84 12/23/19 06:09 Pulse Ox 96 12/20/19 21:40 Results & Data ([facility]) Current Inpatient Medications Current Inpatient Medications: Current Inpatient Medications Acetaminophen (Tylenol) 650 mg PO Q4H PRN PRN Reason: Headache or Minor Fever Stop: 01/19/20 21:25 Last Admin: 12/23/19 08:15 Dose: 650 mg Documented by: Al Hydrox/Mg Hydrox/Simethicone (Maalox) 30 ml PO Q4H PRN PRN Reason: GI Upset Stop: 01/19/20 21:25 Last Admin: 12/21/19 23:12 Dose: 30 ml Documented by: Albuterol (Ventolin Hfa) 1 puffs INH QID PRN PRN Reason: Cough/Wheezing Stop: 01/20/20 08:59 Bismuth Subsalicylate (Kaopectate) 15 ml PO PRN PRN PRN Reason: Loose Stool Stop: 01/19/20 21:25 Last Admin: 12/23/19 07:23 Dose: 15 ml Documented by: Calcitriol (Rocaltrol) 0.25 [facility] [place] [facility] [place]: 01/20/20 08:59 Last Admin: 12/23/19 07:27 Dose: 0.25 mcg Documented by: Chlorthalidone (Hygroton) 25 mg PO [facility] Stop: 01/20/20 08:59 Last Admin: 12/23/19 07:28 Dose: 25 mg Documented by: Diclofenac Sodium (Voltaren 1% Top) 2 gm EXT Q6H PRN PRN Reason: pain Stop: 01/20/20 11:44 Last Admin: 12/23/19 08:16 Dose: 2 gm Documented by: Duloxetine HCl (Cymbalta) 40 mg PO [facility] Stop: 01/22/20 08:59 Last Admin: 12/23/19 07:27 Dose: 40 mg Documented by: Ferrous Sulfate (Feosol) 325 mg PO BIDM [facility] Stop: 01/20/20 08:59 Last Admin: 12/23/19 07:28 Dose: 325 mg Documented by: Gabapentin (Neurontin) 300 mg PO TID [facility] Stop: 01/21/20 21:59 Last Admin: 12/23/19 07:27 Dose: 300 mg Documented by: Hydroxyzine HCl (Vistaril) 50 mg PO HSZ PRN PRN Reason: Insomnia Stop: 01/19/20 21:25 Last Admin: 12/22/19 23:48 Dose: 50 mg Documented by: Hydroxyzine HCl (Vistaril) 25 mg PO Q4H PRN PRN Reason: Anxiety Stop: 01/19/20 21:25 Last Admin: 12/23/19 03:16 Dose: 25 mg Documented by: Hyoscyamine (Levsin) 0.125 mg PO Q4H PRN PRN Reason: abdominal pain Stop: 01/19/20 21:16 Last Admin: 12/23/19 03:25 Dose: 0.125 mg Documented by: Lamotrigine (Lamictal) 25 mg PO [facility] Stop: 01/20/20 11:59 Last Admin: 06/06/20 07:27 Dose: 25 mg Documented by: Levothyroxine Sodium (Synthroid) 50 mcg PO DAILYBB [facility] Stop: 01/20/20 07:59 Last Admin: 12/23/19 07:28 Dose: 50 mcg Documented by: Magnesium Hydroxide (Milk Of Magnesia) 30 ml PO DAILY PRN PRN Reason: Constipation Stop: 01/19/20 21:25 Metoprolol Tartrate (Lopressor) 6.25 mg PO BID [facility] Stop: 01/20/20 08:59 Last Admin: 12/23/19 07:28 Dose: 6.25 mg Documented by: Ondansetron HCl (Zofran Odt) 8 mg PO Q8H PRN PRN Reason: Nausea/Vomiting Stop: 01/19/20 21:20 Pantoprazole Sodium (Protonix) 40 mg PO QAM [facility] Stop: 01/20/20 08:59 Last Admin: 12/23/19 07:28 Dose: 40 mg Documented by: Potassium Chloride (Klor-Con M20) 20 meq PO BID [facility] Stop: 01/20/20 08:59 Last Admin: 12/23/19 07:27 Dose: 20 meq Documented by: Prednisone (Prednisone) 5 mg PO DAILY [facility] Stop: 01/20/20 08:59 Last Admin: 12/23/19 07:27 Dose: 5 mg Documented by: Sodium Chloride (Sully Nasal) 1 - 2 sprays NA PRN PRN PRN Reason: Nasal Dryness/Congestion Stop: 01/19/20 21:25 Mental Health & Subst Abuse Tx Therapist Name of Therapist: None Digital Account Director Name of Digital Account Director: None Post Discharge Appointments Primary Care Physician Name Of Family Doctor: Arpit Osman Contact Information Discharge Discharge Address: [address] [place] [address] (1) Drug overdose Encounter type: initial encounter Injury intent: accidental or unintentional Qualified Code(s): T50.901A - Poisoning by unspecified drugs, medicaments and biological substances, accidental (unintentional), initial encounter
--- NOTE | 2019-12-23 14:12 | XRay Report ---
LUMBAR SPINE 2 VIEWS CLINICAL HISTORY: Left hip pain. FINDINGS: AP and lateral views of the lumbar spine are compared to study dated 06/24/2015. The skeleta l structures are osteopenic. There is no radiographic evidence of acute fracture. Vertebral body heig ht and alignment are maintained throughout the lumbar spine. Mild wedge deformities are noted in the lower thoracic spine. Extensive postoperative change is seen throughout the thoracolumbar spine. Ther e has been laminectomy and posterior fusion with interposition bone graft seen from T10-L5. Interpedi cular screws are present at all levels. The orthopedic hardware appears intact. Mild lumbar levocurva ture is noted. There has been discectomy at L1-L2 and L3-L4. Mild/moderate disc space narrowing is se en at the remaining lumbar levels. There has been dislocation of the femoral component of the left hi p arthroplasty. The visualized bony pelvis appears intact. There is chronic deformity of the sacrum. Sclerotic change is noted in the sacroiliac joints. No bowel obstruction is identified. Phleboliths a re observed in the pelvis. IMPRESSION: 1. Extensive postoperative change is noted throughout the lumbar spine as above with no acute bony ab normality identified. 2. There has been dislocation of the femoral component of the left hip arthroplasty. Electronically signed by: Edwin Caban M.D. 12/23/2019 2:11 PM
--- NOTE | 2019-12-23 14:24 | XRay Report ---
LEFT HIP 2 VIEWS CLINICAL HISTORY: Left hip pain. FINDINGS: AP and crosstable lateral views of the left hip are compared to study dated 05/24/2017. The skeletal structures are osteopenic. No fracture seen involving the hips or bony pelvis. There is a bi polar left hip arthroplasty. There has been superior and dorsal dislocation of the femoral component of the arthroplasty. Mild overlying soft tissue edema is noted. Mild degenerative joint space narrowi ng seen in the right hip. Postoperative change and fusion hardware is noted in the lower lumbar spine . IMPRESSION: 1. No fracture is identified. 2. Dislocated left hip arthroplasty as above. Electronically signed by: Edwin Caban M.D. 12/23/2019 2:22 PM
--- NOTE | 2019-12-23 15:59 | Discharge Summary ---
Date of Service December 23, 2019 History of Present Illness Patient initially presented to the ER 12/16/2019 after a friend found her unresponsive with an empty bottle of tramadol and a handwritten last will and testament. Per documentation, she had filled a tramadol prescription on 11/13/2019 - 50 mg tablet #42 tablets, and on 11/29/2019 filled tramadol 50 mg tablets #198. UDS was positive for opiates, PCP, MDMA, and marijuana, but confirmatory tests were not able to be performed due to lack of adequate sample. She had electrolyte disarray, with potassium 2.2 and sodium 132, and WBC 14.01. She was on the hospitalist service for 4 days, was initially delirious, thought that her was still alive although he had years prior and was trying to contact him, and said she did not remember anything leading up to her hospitalization, but later reported she had been depressed and suicidal, and endorsed multiple stressors, including dropping out of psychiatric treatment several months prior due to a disagreement with her clinician, isolation, and chronic pain. She has not been able to clarify which, if any, psychotropic medication she has been taking, but did fill a duloxetine prescription in November. At times she requested to leave the hospital, accused staff of being uncaring when they spoke to her about trying to recover her memory, and often answered questions inappropriately or with unrelated information. Her friend, Maricruz, who found her prior to admission was contacted for collateral information, and reported the patient had been complaining of pain but was unaware of suicidal statements prior to her overdose. The patient endorsed multiple stressors, including the of her a few years ago, isolation due to the COVID pandemic, loneliness, and endorsed depressive symptoms including anhedonia, poor appetite, insomnia, low energy, and hopelessness. She was seen on the psychiatric consult service, and when medically stabilized, agreed to voluntary admission. She told staff that if she would not have been hospitalized, she "probably would have gone home and found another way to end it all," and said she would "probably just overdose." On my assessment, she states she tried to end her life, and "set it up" so that her friend, Maricruz, would find her body when she came to take care of the patient's cats, "I wasn't expecting to wake up again." She says Maricruz comes to help her with the litter box, if she cannot empty it without exacerbating her pain. She feels bad about "putting her in that position," and states she had been feeling increasingly lonely and hopeless, and did not want to continue to live "if it's just going to be like that, it is very difficult to have a reason to smile or things to be happy about." She admits to taking the tramadol overdose, but says she cannot remember how many pills she took, and denies taking any other substances/medications. She endorses depressed mood, hopelessness, helplessness, decreased appetite, low energy, and anhedonia. She has been restricting her oral intake and is aware that she is malnourished and underweight, stating she was partly doing this due to poor appetite and partly as a way to commit suicide. She states her healthy weight is 130-135 pounds, and she has lost weight over a several year period. She denies a history of manic episodes, but states she has been diagnosed with bipolar II. She thinks her most recent medication regimen of lamotrigine and duloxetine was helpful, and would like to resume it. Although she continues to feel depressed, she says "I have a lot of things I need to face and act on, and I feel paralyzed, but I want to work on it. I want to be more responsible as far as my nutrition." She is willing for a referral for outpatient treatment, but repeatedly states she wants to see a "licensed professional." No psychosis, panic, PTSD, OCD. She reports poor psychosocial supports, stating she has been more isolative since her , is estranged from her sister, who is her only living family member, and spends her time home, alone. She does enjoy [employer], and has interest in social justice causes. Physical Exam Mental Examination see admission H&P and day of discharge assessment Vital Signs (Past 24 Hours) Last Vital Signs Temp 36.7 C 12/23/19 06:08 Pulse 103 H 12/23/19 06:09 Resp 18 12/23/19 06:08 BP 132/84 12/23/19 06:09 Pulse Ox 96 12/20/19 21:40 Principal Diagnosis bipolar II disorder Psychiatric Data Was received on transfer from medical floor. See daily care summary. Patient was restarted on previously effective meds (lamictal, cymbalta, and neurontin). Patient complained of hip pain that was replaced in late 80s or 90s. She was unable to bear weight and ortho was consulted. Hip films showed displacement of the arthroplasty. Patient's need for hydration and pain meds could no longer be met on inpatient psych pending intervention by ortho. Dr[facility]. Day of Discharge Assessment tearful, in pain, guilty re: suicide attempt, hoplessness present but able to discuss some after care planning. Stable for care on med floor. Transition of Care Transition Of Care Record: was reviewed with the patient (unable to review record with patient, she understands rationale for transfer.) Advance Directives Advance Directives Information Provided: Yes Advance Directives: No Mental Health Advance Directive: No Advance Directives on File: No Living Will: No Power of Welder Fitter Helper: No Advance Directives Reason:: Declines as Mental Health Visit. Risk Factors Assessment Male: No : Yes Do You Have Access To A Gun?: No Health Problems: Yes Mental Health Diagnoses: Yes Substance Use Disorders: Yes Previous Attempt: Yes Previous Attempt; Highly Lethal: Yes Family History of Suicide: No Previous Psychiatric Hospitalization: Yes Hopelessness: Yes Smoker: No Protective Factors Assessment Yarsanism Beliefs: No : No Responsible for Young Children: No Employed: No Stable Relationships: No Supportive Family: No Good Rapport with Provider: No Absence of Any Risk Factors Above: No Total Time Total Time Spent: Greater Than 30 Minutes Discharge Data Consultations 12/23/19 12:06 Consult Orthopedic Surgery Stat 12/23/19 14:51 Consult Hospitalist Stat Lab Results 12/21/19 07:03 Sodium 139 Potassium 3.8 Chloride 106 Carbon Dioxide 26 Anion Gap 7.0 BUN 16 Creatinine 0.93 Est Cr Clr Drug Dosing 49.4 Est GFR ( Amer) 74.7 Est GFR (Non-Af Amer) 64.5 BUN/Creatinine Ratio 17.2 Glucose 124 H Calcium 10.0 Phosphorus 2.9 Hospital Course (1) Drug overdose: 12/20 -patient reports overdosing on tramadol in a suicide attempt, and was found with an empty bottle next to her. She had access to large number of pills, but says she does not recall how many she took. Her UDS was + for opiates, THC, PCP, and MDMA. Unfortunately, the sample was insufficient to perform confirmatory tests, so it is not known what else was in her system. Some of these may have been false positives. There has been some concern for substance misuse and cannot rule out other drug use. -Tramadol was discontinued on the medical floor. Recommend avoiding prescription of medications that are addictive, abusable, or lethal in overdose. -Ideally, somebody could bring in old, outdated or stash medications at her home for safe disposal prior to discharge. 12/21 - Pt reports she has been processing her suicide attempt. Stating "I'm obviously better off being alive, but I truly did not think I would wake up." - Does deny SI at this time, but is still processing and safety planning Reviewed. (2) Borderline personality disorder: 12/20 - Consistent boundaries, identify healthy coping skills. 12/21 - Information provided by patient's former psychiatric prescriber and patient's behavior on the unit would suggest that this is the patient's primary diagnosis - Pt would benefit from DBT; however, options for this are very limited in our geographic region - Re-establish outpatient therapy Reviewed. (3) Bipolar II disorder: refer for outpatient therapy.12/20 - current episode depressed. Reviewed past records and medication; patient reports most useful medication regimen was lamotrigine and duloxetine combination. It is unclear when she was last taking this, but she agreed to resume and will start lamotrigine 25mg daily, following standard dose titration schedule. Resume duloxetine 30mg daily and retitrate. -Encourage group attendance and participation, work on healthy coping skills and discharge safety plan. -Offer family meeting, perhaps with friend. -Will need referral for outpatient therapy and psychiatric care. 12/21 - Continue lamotrigine 25mg with standard titration. Reviewed hesitancy for rapid titration of duloxetine given her history of bipolar II diagnosis. We did discuss at least increasing duloxetine to 40mg tomorrow morning, as it is also being utilized to target her chronic pain concerns. - Gabapentin also increased to 300mg TID starting with this evening's dose. - Reviewed recommendation for outpatient case management, therapy referral and psychiatry referral. Pt was willing for this and information was passed along to social work. - Pt denying SI, but continues to be highly focused on her chronic pain being the root of her problems and still being "very poorly controlled." Reviewed 12/22. (4) Chronic pain: 12/20 -multifactorial, with fibromyalgia, deconditioning, back pain, carpal tunnel, spinal stenosis, and SI joint disease. We have contacted her Dr. Osman's office to coordinate care, and he indicated that narcotics should be discontinued, recommended use of Tylenol arthritis, Voltaren gel, and gabapentin, as well as a pain management consult. Will encourage gentle stretching, and can offer heating pad and ice packs as needed. She indicates willingness for referral to pain management. -EHOB mattress as she reports the mattress is hard and exacerbated back pain. 12/21 - Patient's case coordinated with Dr. Osman yesterday. Pt tolerating Voltaren gel, recommend pain management referral on an outpatient basis - If significant exacerbation in pain during her stay, could consider pain management consultation - Pt is stating that she attending a pain management consultation and was started on steroid injections that "wore off far too quickly" Reviewed. 12/22 acute onset of left hip pain with decreased ROM, unable to bare weight. [facility] hospitalist agrees with ortho consult, spoke with Dr. Doan. Will order PA and Lat views of left hip and L spine. With additional intervention as indicated. (5) Hypothyroid: Continue home dose of levothyroxine. TSH on presentation was 0.518. Reviewed. Mental Health & Subst Abuse Tx Therapist Name of Therapist: None Glass Checker Name of Glass Checker: None Post Discharge Appointments Primary Care Physician Name Of Family Doctor: Arpit Osman Contact Information Discharge Discharge Address: [address] [place] [address] Discharge Plan Discharge Items Patient Disposition: Transfer Acute Care Hospital Reason For Visit: BIPOLAR DISORDER Discharge Diagnosis: same Activity: As commented below Activity Comment: non-ambulatory due to hip dislocation Non-emergency contact: Hospitalist and Surgeon Call non-emergency contact if: you have any medication questions and your pain is not controlled Follow-up/Referrals: Arpit Osman MD [Primary Care Provider] - Diet: Nothing by Mouth Addtl Attending Provider Instructions: follow instructions of hospitalist service in consultation with orthopedics, will reassess mental health needs/follow up appointments following procedure. Pending Studies at Discharge: No Stand-Alone Forms: My [facility] Skilled Items Patient informed of condition?: Yes DNR: No Discharge Level of Care: Skilled Communicable Disease: No Discharge Prognosis: Other Lines: None Urinary Catheter: No Medications and DC Order Prescriptions: New acetaminophen [Mapap (acetaminophen)] 325 mg Tablet 650 mg PO Q4H PRN (Reason: pain) Qty: 1 RF: 0 ondansetron 8 mg Tablet,Disintegrating 8 mg PO Q8H PRN (Reason: nausea) Qty: 1 RF: 0 lamotrigine [Lamictal] 25 mg Tablet 25 mg PO QAM Qty: 1 RF: 0 potassium chloride [Klor-Con M20] 20 mEq Tablet,Er Particles/Crystals 20 meq PO BID Qty: 1 RF: 0 magnesium hydroxide [Milk of Magnesia] 400 mg/5 mL Suspension 30 ml PO DAILY PRN (Reason: Abdominal Discomfort) Qty: 1 RF: 0 levothyroxine [Synthroid] 50 mcg Tablet 50 mcg PO DAILYBB Qty: 1 RF: 0 pantoprazole 40 mg Tablet,Delayed Release (Dr/Ec) 40 mg PO QAM Qty: 1 RF: 0 bismuth subsalicylate [Kaopectate (bismuth subsalicy)] 262 mg/15 mL Suspension 15 ml PO PRN Qty: 1 RF: 0 gabapentin 300 mg Capsule 300 mg PO TID Qty: 1 RF: 0 hydroxyzine HCl 25 mg Tablet 50 mg PO HSZ Qty: 1 RF: 0 hydroxyzine HCl 25 mg Tablet 25 mg PO Q4H PRN (Reason: Anxiety) Qty: 1 RF: 0 ferrous sulfate 325 mg (65 mg iron) Tablet,Delayed Release (Dr/Ec) 325 mg PO BIDM Qty: 1 RF: 0 sodium chloride [Saline Mist] 0.65 % Aerosol,[place] 1 - 2 spray NA PRN Qty: 1 RF: 0 metoprolol tartrate 25 mg Tablet 6.25 mg PO BID Qty: 1 RF: 0 MAG-AL 200-200 mg/5 mL Suspension 30 ml PO Q4H PRN (Reason: Abdominal Discomfort) Qty: 1 RF: 0 duloxetine 20 mg Capsule,Delayed Release(Dr/Ec) 40 mg PO QAM Qty: 1 RF: 0 diclofenac sodium [Voltaren] 1 % Gel 2 g EXT Q6H PRN (Reason: pain) 1 Days Qty: 1 RF: 0 Continued calcitriol 0.25 mcg capsule 0.25 mcg PO DAILY Qty: 30 RF: 0 acetaminophen [Tylenol Extra Strength] 500 mg tablet 500 mg PO QID PRN (Reason: Pain) RF: 0 prednisone 5 mg Tablet 5 mg PO DAILY RF: 0 albuterol sulfate 90 mcg/actuation Hfa Aerosol Inhaler 1 puff INHALATION QID PRN (Reason: cough, wheezing) RF: 0 chlorthalidone 25 mg Tablet 25 mg PO QAM 7 Days Qty: 7 RF: 0 hyoscyamine sulfate 0.125 mg Tablet 0.125 mg PO Q4 PRN (Reason: Abdominal Pain) RF: 0 Discontinued ferrous sulfate 325 mg (65 mg iron) Tablet 325 mg PO BID RF: 0 lamotrigine 200 mg tablet 200 mg PO BID RF: 0 topiramate 100 mg tablet 150 mg PO HS RF: 0 levothyroxine [Synthroid] 50 mcg Tablet 50 mcg PO DAILYBB 7 Days Qty: 7 RF: 0 duloxetine 60 mg Capsule,Delayed Release(Dr/Ec) 120 mg PO QAM 7 Days Qty: 14 RF: 0 potassium chloride [Klor-Con M20] 20 mEq tablet,ER particles/crystals 20 meq PO DAILY RF: 0 omeprazole 20 mg capsule,delayed release(DR/EC) 20 mg PO BID RF: 0 tramadol 50 mg tablet 100 mg PO Q6H PRN (Reason: Pain) RF: 0 metaxalone 800 mg tablet 800 mg PO QID RF: 0 gabapentin 300 mg capsule 1,200 mg PO TID RF: 0 losartan 100 mg tablet 100 mg PO DAILY RF: 0 Discharge Orders: Discharge Order (Routine); Ordered 12/23/19 Ordered By: Angeli Turner Admission Data Admit Date/Time: 12/20/19 20:35 Attending Provider: Charito Samayoa Admit Provider: Markie Reddy Primary Care Provider: Arpit Osman Other Providers: Asif Doan ; Jo Stark ; Arpit Castañeda ; Ronaldo Chavez ; Miesha Richard ; Berkley Durbin ; Erika Nolasco ; Edelmira Gonzales ; Dexter Perez ; Antonio Sahu ; Robby Little ; Hodan Barton ; Mary Irving ; Marielos Caal ; Anselmo Anderson ; Sesar Duran ; Chelly Moscoso ; Papi Mendoza ; Gi Brito ; Sesar Russell ; E Sangeeta grady ; Aparna Calderón ; Eusebia Pineda ; Cynthia Gonzalez I. ; Yaya Fisher ; Sheldon Barboza Other Interventions: PSY Interdisciplinary Discharge Planning Last Done: 12/21/19 13:51 Coding Level of Care Code 70298 D/C day mgmt > 30 min Diagnoses Drug overdose T50.901A Encounter type: initial encounter Injury intent: accidental or unintentional Borderline personality disorder F60.3 Bipolar II disorder F31.81 Chronic pain G89.29 Hypothyroid E03.9
== END 2019-12-23 16:29 | disposition short-term general hospital (02) | DRG 885 ==
LOC: 3S 20:35

== ENCOUNTER 2019-12-23 16:29 | Inpatient (IN) ==
[2019-12-23 17:28] LABS: Basophils # (auto) 0.03 K/uL (0-0.2); Basophils % (auto) 0.3 %; Eosinophils # (auto) 0.09 K/uL (0-0.5); Eosinophils % (auto) 0.9 %; Hemoglobin 13.2 g/dL (12.0-16.0); Immature Granulocytes # (auto) 0.06 K/uL (0.00-0.02); Immature Granulocytes % (auto) 0.6 %; Lymphocytes # (auto) 2.54 K/uL (1.2-3.4); Lymphocytes % (auto) 25.2 %; Mean Corpuscular Hemoglobin 31.2 pg (25-34); Mean Corpuscular Volume 89.8 fL (80-100); Mean Platelet Volume 8.5 fL (7.4-10.4); Monocytes # (auto) 1.06 K/uL (0.11-0.59); Monocytes % (auto) 10.5 %; Neutrophils # (auto) 6.29 K/uL (1.4-6.5); Neutrophils % (auto) 62.5 %; Platelet Count 218 K/uL (130-400); RDW Coefficient of Variation 12.7 % (11.5-14.5); RDW Standard Deviation 40.9 fL (36.4-46.3); Red Blood Count 4.23 M/uL (4.2-5.4); White Blood Count 10.07 K/uL (4.8-10.8)
[2019-12-23 17:48] LABS: BUN Creatinine Ratio 21.1 (10-20); Blood Urea Nitrogen 21 mg/dl (7-18); Calcium 9.6 mg/dl (8.5-10.1); Carbon Dioxide 27 mmol/L (21-32); Chloride 105 mmol/L (98-107); Est GFR (Non-African American) 61.3; Glucose 99 mg/dl (70-99); Magnesium 1.9 mg/dl (1.8-2.4); Mean Corpuscular Hgb Conc 34.7 g/dL (32-36); Phosphorus 2.7 mg/dl (2.5-4.9); Potassium 4.1 mmol/L (3.5-5.1); Sodium 139 mmol/L (136-145)
[2019-12-23] MEDS ORDERED: D5NSS + 20MEQ KCL 20 MEQ/1,000 ML BAG IV SCH (18:00)
--- NOTE | 2019-12-23 18:19 | History & Physical Report ---
Date of Service December 23, 2019 Assessment & Plan (1) Hip dislocation, left: 64-year-old female with history of recent encephalopathy secondary to tramadol overdose, bipolar disorder, Osteoarthritis and chronic prednisone, hypertension, hypothyroidism, presented with acute left hip pain this morning. Acute left hip dislocation History of left hip arthroplasty --Evaluated by orthopedic service, plan for close reduction tomorrow morning --Patient is at low to moderate risk for perioperative cardio pulmonary complications secondary to underlying comorbidities No medical contraindication to proceed with planned procedure tomorrow --For pain control, patient will be provided with Tylenol 650 mg every 6 hours --Advised admission to [facility] with telemetry given episode of 4 beat V. tach last week in the setting of hypokalemia, tramadol overdose EKG ordered today Continue usual metoprolol 6.25 mg twice a day Bipolar disorder --Continue Cymbalta, lamotrigine Return to behavioral health unit once cleared by Ortho and medical service Recent encephalopathy secondary to tramadol overdose --Mental status stable at this time Hypertension --Continue losartan, hold chlorthalidone Osteoarthritis, on chronic prednisone --Continue usual prednisone 5 mg p.o. daily Hypothyroidism --Continue usual levothyroxine DVT prophylaxis SCDs Disposition Return to behavioral health unit once cleared by Ortho and medical service Plan of care discussed with patient in detail at length All questions were answered She is understanding, agreeable, comfortable with plan of care Admission and Anticipated Discharge Date Admission Date: December 23, 2019 History of Present Illness 64-year-old female with history of bipolar disorder, recent encephalopathy secondary to tramadol overdose, osteoarthritis on chronic prednisone, Hypertension, hypothyroidism, other problems noted below presenting with sudden onset left hip pain this morning. Patient was recently transferred from the internal medicine service to the psychiatry unit after being admitted for encephalopathy secondary to tramadol overdose. This morning, while sitting in her bedside chair, the patient turned to her left side to reach for her clothes and upon returning to her sitting position, the patient felt a pop on her left hip followed by severe pain. The pain persisted prompting evaluation by orthopedic service. Left hip x-ray showing dislocation, previous arthroplasty. Hospitalist consulted for medical management perioperatively. On exam, the patient was seen with LEATHA Calhoun initially and LEATHA Matta during physi anne exam. Patient was seen resting in bed, comfortable, in very good spirits, jovial. States she has intermittent severe pain on the left hip, but was comfortable during my exam. Denies chest pain, shortness of breath, palpitations, dizziness, nausea vomiting, fevers or chills. At baseline, the patient has poor mobility secondary to chronic pain and arthritis. She does report being able to climb up 13 steps every day with no symptoms. No previous problems with surgeries or anesthesia. Primary Care Provider: Arpit Osman MD Allergies Allergy/AdvReac Type Severity Reaction Status Date / Time cyclobenzaprine Allergy Intermediate RASH AND Verified 11/28/19 12:08 SWELLING fentanyl Allergy Intermediate MAJOR FEET Verified 11/28/19 12:08 SWELLING ketorolac [From Toradol] Allergy Unknown SEE COMMENT Verified 11/28/19 12:08 oxcarbazepine Allergy Unknown UNKNOWN - Verified 11/28/19 12:08 PT DOESN'T REMEMBER risperidone AdvReac Intermediate exhaustion Verified 11/28/19 12:08 clonazepam AdvReac Mild nausea Verified 11/28/19 12:08 Home Medications Home Medications Medication Instructions Recorded Confirmed Type albuterol sulfate 1 puff INHALATION QID PRN 08/18/18 12/20/19 History prednisone 5 mg PO DAILY 08/18/18 12/20/19 History hyoscyamine sulfate 0.125 mg PO Q4 PRN 01/15/19 12/20/19 History acetaminophen 500 mg tablet 500 mg PO QID PRN 11/28/19 12/20/19 History calcitriol 0.25 mcg capsule 0.25 mcg PO DAILY #30 cap 12/12/19 12/20/19 Rx chlorthalidone 25 mg PO QAM 7 Days #7 tab 12/20/19 12/20/19 Rx acetaminophen [Mapap 650 mg PO Q4H PRN #1 tab 12/23/19 Rx (acetaminophen)] aluminum-magnesium hydroxide 30 ml PO Q4H PRN #1 ml 12/23/19 Rx [MAG-AL] bismuth subsalicylate [Kaopectate 15 ml PO PRN #1 ml 12/23/19 Rx (bismuth subsalicy)] diclofenac sodium [Voltaren] 2 g EXT Q6H PRN 1 Days #1 gm 12/23/19 Rx duloxetine 40 mg PO QAM #1 cap 12/23/19 Rx ferrous sulfate 325 mg PO BIDM #1 tab 12/23/19 Rx gabapentin 300 mg PO TID #1 cap 12/23/19 Rx hydroxyzine HCl 25 mg PO Q4H PRN #1 tab 12/23/19 Rx hydroxyzine HCl 50 mg PO HSZ #1 tab 12/23/19 Rx lamotrigine [Lamictal] 25 mg PO QAM #1 tab 12/23/19 Rx levothyroxine [Synthroid] 50 mcg PO DAILYBB #1 tab 12/23/19 Rx magnesium hydroxide [Milk of 30 ml PO DAILY PRN #1 ml 12/23/19 Rx Magnesia] metoprolol tartrate 6.25 mg PO BID #1 tab 12/23/19 Rx ondansetron 8 mg PO Q8H PRN #1 tab 12/23/19 Rx pantoprazole 40 mg PO QAM #1 tab 12/23/19 Rx potassium chloride [Klor-Con M20] 20 meq PO BID #1 tab 12/23/19 Rx sodium chloride [Saline Mist] 1 - 2 spray NA PRN #1 ml 12/23/19 Rx Past Med/Surg History Medical History (Updated 12/23/19 @ 18:18 by Robby Little MD) Bipolar II disorder Borderline personality disorder (Chronic) C. difficile diarrhea (Chronic) Chronic pain CKD (chronic kidney disease), stage III Fibromyalgia (Chronic) Hypertension (Chronic) Hypokalemia Hyponatremia (Acute) Hypothyroidism (Chronic) IBS (irritable bowel syndrome) Polypharmacy (Chronic) Pressure injury of sacral region, stage 1 (Chronic) Recurrent Clostridioides difficile diarrhea Wound abscess (Resolved) Surgical History H/O carpal tunnel repair H/O inguinal hernia repair (Chronic) S/P cataract surgery Status post total hip replacement, left (Chronic) Social History Preferred Language: Kyrgyz Communication Ability: Effective Welfare Centre Manager Required: No Beliefs That Will Affect Care: None marital status: / Current Living Situation: Alone current occupational status: retired Feels Safe at Home: Yes Smoking Status: Former smoker Hx Alcohol Use: No Review of Systems Review of Systems: All systems reviewed & are unremarkable except as noted in HPI & below Physical Exam Physical Exam: General- oriented x 3, not in distress, speaks in sentences with no effort or accessory muscle use Head- atraumatic Eyes- PERRL, EOMI, anicteric ENT- oropharynx clear Neck- supple, no JVD, no adenopathy, no thyromegaly; carotids +2/2, no bruits appreciated Lungs- clear to auscultation bilaterally, no rales/wheezes Heart- normal rate, regular rhythm; no murmur, no gallop, no rub appreciated Abdomen- normal bowel sounds, nondistended, soft, nontender, no masses or hepatosplenomegaly Extremities- left lower extremity: Internally rotated, mild tenderness on the left hip area, no erythema/warmth/hematoma trace pretibial edema, no calf tenderness; peripheral pulses intact Neuro- alert, oriented x 3; CN 2-12 grossly intact; motor 5/5 bilaterally;sensation 100% on all extremities; no other gross focal neurologic deficits Skin- warm & dry Psych-calm, cooperative, animated Results & Data Results & Data ([facility]) Laboratory Results Laboratory Results - last 24 hr 12/23/19 12/23/19 17:20 17:20 WBC 10.07 RBC 4.23 Hgb 13.2 Hct 38.0 MCV 89.8 MCH 31.2 MCHC 34.7 RDW Std Deviation 40.9 RDW Coeff of [place] 12.7 Plt Count 218 MPV 8.5 Immature Gran % (Auto) 0.6 Neut % (Auto) 62.5 Lymph % (Auto) 25.2 Harrison % (Auto) 10.5 Eos % (Auto) 0.9 Baso % (Auto) 0.3 Immature Gran # (Auto) 0.06 H Neut # (Auto) 6.29 Lymph # (Auto) 2.54 Harrison # (Auto) 1.06 H Eos # (Auto) 0.09 Baso # (Auto) 0.03 Sodium 139 Potassium 4.1 Chloride 105 Carbon Dioxide 27 Anion Gap 7.0 BUN 21 H Creatinine 0.97 Est Cr Clr Drug Dosing Not Reportable Est GFR ( Amer) 71.0 Est GFR (Non-Af Amer) 61.3 BUN/Creatinine Ratio 21.1 H Glucose 99 Calcium 9.6 Phosphorus 2.7 Magnesium 1.9 Code Status & VTE Plan VTE Prophylaxis Plan VTE Prophylaxis will be ordered: Yes
[2019-12-23] MEDS: PATIENT'S HEIGHT AND/OR WEIGHT NEEDED SCH ×4 (18:45→22:51)
[2019-12-23] MEDS: ACETAMINOPHEN 325 MG TAB PO SCH ×2 (18:45→23:41)
[2019-12-23] MEDS: FERROUS SULFATE 325 MG TAB PO SCH (20:47)
[2019-12-23] MEDS: GABAPENTIN 300 MG CAP PO SCH (20:48)
[2019-12-23] MEDS: POTASSIUM CHLORIDE 20 MEQ TABCR PO SCH (20:48)
[2019-12-23] MEDS: METOPROLOL TARTRATE 25 MG TAB PO SCH (20:49)
--- NOTE | 2019-12-23 23:05 | Consultation Report ---
DATE OF CONSULTATION: 12/23/2019 HISTORY OF PRESENT ILLNESS: This is a 64-year-old female seen at the request of Dr. Angeli Turner and Dr. Robby Little for an acute left total hip arthroplasty dislocation. Apparently, the patient had been admitted to the mental health unit and through some issue related to putting some pants on she twisted her body in an usual position forcing her left leg to go past over 100 degrees of flexion and she felt a painful clunk in her left hip. She was unable to ambulate, hip was stuck. She notified staff and Dr. Anegli Turner then ordered lumbar and hip x-rays, which then noted a left hip dislocation. The patient was then transferred to the medical floor. Dr. Little was then taking care of her medical issues and orthopedics was then consulted. The patient was seen in her hospital room. She understood the issues related to her hip, had no significant fall to report. She noted that she had an unnatural position of her left leg trying to put some pants on and felt the dislocation occur. PAST MEDICAL HISTORY: Extensive psychiatric history including bipolar disorder, borderline personality disorder, suicidal ideation and attempt, C difficile diarrhea, chronic kidney disease stage III, depression, fibromyalgia, hypertension, hypokalemia, hyponatremia, hypothyroidism, irritable bowel syndrome, polypharmacy, stage I pressure injury of the sacrum, recurrent C. diff diarrhea, wound abscess. PAST SURGICAL HISTORY: Carpal tunnel repair, inguinal hernia repair, cataract surgery, left total hip replacement by Dr. Duckworth many years ago, she is uncertain, but feels it should be 20-30 years prior. ALLERGIES: CYCLOBENZAPRINE, FENTANYL, KETOROLAC, OXCARBAZEPINE, RISPERIDONE, CLONAZEPAM. MEDICATIONS: Please note the extensive list in the medical record. SOCIAL HISTORY: She is , lives alone and she is retired. She smokes daily. She denies alcohol use. She has used marijuana and other substances in the past. Nothing current. She was inpatient at the mental health unit until her hip dislocation today. PHYSICAL EXAMINATION: This is a pleasant 64-year-old female, lying supine in the hospital room bed, obvious dislocation of her left hip with shortening and internal rotation. There is prominence of the lateral aspect of the hip. Nontender to palpation. Limited range of motion due to protection and mechanical dislocation. Dorsalis pedis and posterior tibial pulse 2/4. Sensation is intact in bilateral lower extremities. Radiographs demonstrate a posterior superior dislocation of the left total hip arthroplasty. The components appear to be well fixed. There is no obvious fracture. IMPRESSION: Left total hip arthroplasty, dislocation. RECOMMENDATION: The patient will be scheduled for closed reduction of total hip dislocation in the morning. Discussed the plan of care with the patient. She is understanding. All of her questions were answered. She will be n.p.o. after midnight. Consent will be obtained from the patient prior to surgery. Thank you for the opportunity to consult in the care of this patient.
[2019-12-24] MEDS: ACETAMINOPHEN 325 MG TAB PO SCH ×4 (05:35→23:34)
[2019-12-24] MEDS: LEVOTHYROXINE SODIUM 50 MCG TABLET PO SCH (05:36)
--- NOTE | 2019-12-24 08:55 | Anesthesiology Consultation ---
Date of Service December 24, 2019 Assessment & Plan (1) Encounter for pre-operative examination: Chart Review Chart Review: Acceptable Risk for Surgery History Surgery Operation Date: 12/24/19 10:00 Proposed Procedures p Closed Reduction Extremity - Asif Doan DO Height/Weight Height: 5 ft 8 in Weight: 58.6 kg Allergies Allergy/AdvReac Type Severity Reaction Status Date / Time cyclobenzaprine Allergy Intermediate RASH AND Verified 11/28/19 12:08 SWELLING fentanyl Allergy Intermediate MAJOR FEET Verified 11/28/19 12:08 SWELLING ketorolac [From Toradol] Allergy Unknown SEE COMMENT Verified 11/28/19 12:08 oxcarbazepine Allergy Unknown UNKNOWN - Verified 11/28/19 12:08 PT DOESN'T REMEMBER risperidone AdvReac Intermediate exhaustion Verified 11/28/19 12:08 clonazepam AdvReac Mild nausea Verified 11/28/19 12:08 Medications Home Medications Medication Instructions Recorded Confirmed Last Taken albuterol sulfate 1 puff INHALATION QID PRN 08/18/18 12/20/19 Unknown prednisone 5 mg PO DAILY 08/18/18 12/20/19 01/15/19 hyoscyamine sulfate 0.125 mg PO Q4 PRN 01/15/19 12/23/19 Unknown acetaminophen 500 mg tablet 500 mg PO QID PRN 11/28/19 12/23/19 Unknown calcitriol 0.25 mcg capsule 0.25 mcg PO DAILY #30 cap 12/12/19 12/23/19 Unknown chlorthalidone 25 mg PO QAM 7 Days #7 tab 12/20/19 12/23/19 Unknown acetaminophen [Mapap 650 mg PO Q4H PRN #1 tab 12/23/19 12/23/19 Unknown (acetaminophen)] aluminum-magnesium hydroxide 30 ml PO Q4H PRN #1 ml 12/23/19 12/23/19 Unknown [MAG-AL] bismuth subsalicylate [Kaopectate 15 ml PO PRN #1 ml 12/23/19 12/23/19 Unknown (bismuth subsalicy)] diclofenac sodium [Voltaren] 2 g EXT Q6H PRN 1 Days #1 gm 12/23/19 12/23/19 Unknown duloxetine 40 mg PO QAM #1 cap 12/23/19 12/23/19 Unknown ferrous sulfate 325 mg PO BIDM #1 tab 12/23/19 12/23/19 Unknown gabapentin 300 mg PO TID #1 cap 12/23/19 12/23/19 Unknown hydroxyzine HCl 25 mg PO Q4H PRN #1 tab 12/23/19 12/23/19 Unknown hydroxyzine HCl 50 mg PO HSZ #1 tab 12/23/19 12/23/19 Unknown lamotrigine [Lamictal] 25 mg PO QAM #1 tab 12/23/19 12/23/19 Unknown levothyroxine [Synthroid] 50 mcg PO DAILYBB #1 tab 12/23/19 12/23/19 Unknown magnesium hydroxide [Milk of 30 ml PO DAILY PRN #1 ml 12/23/19 12/23/19 Unknown Magnesia] metoprolol tartrate 6.25 mg PO BID #1 tab 12/23/19 12/23/19 Unknown ondansetron 8 mg PO Q8H PRN #1 tab 12/23/19 12/23/19 Unknown pantoprazole 40 mg PO QAM #1 tab 12/23/19 12/23/19 Unknown potassium chloride [Klor-Con M20] 20 meq PO BID #1 tab 12/23/19 12/23/19 Unknown sodium chloride [Saline Mist] 1 - 2 spray NA PRN #1 ml 12/23/19 12/23/19 Unknown Active Medications Generic Name Dose Route Start Last Admin Trade Name Freq PRN Reason Stop Dose Admin Acetaminophen 650 mg 12/23/19 18:00 12/24/19 05:35 Tylenol PO 01/22/20 17:59 650 mg Q6H IVAN Administration Ferrous Sulfate 325 mg 12/23/19 17:00 12/23/19 20:47 Feosol PO 01/22/20 16:59 325 mg BIDM IVAN Administration Gabapentin 300 mg 12/23/19 21:00 12/23/19 20:48 Neurontin PO 01/22/20 20:59 300 mg TID IVAN Administration Hydroxyzine HCl 50 mg 12/23/19 22:00 12/23/19 20:49 Vistaril PO 01/22/20 21:59 50 mg HSZ IVAN Administration Levothyroxine Sodium 50 mcg 12/24/19 06:30 12/24/19 05:36 Synthroid PO 01/23/20 06:29 50 mcg DAILYBB IVAN Administration Metoprolol Tartrate 6.25 mg 12/23/19 21:00 12/23/19 20:49 Lopressor PO 01/22/20 20:59 6.25 mg BID IVAN Administration Potassium Chloride 20 meq 12/23/19 21:00 12/23/19 20:48 Klor-Con M20 PO 01/22/20 20:59 20 meq BID IVAN Administration Past Medical History Medical History Bipolar II disorder Borderline personality disorder (Chronic) C. difficile diarrhea (Chronic) Chronic pain CKD (chronic kidney disease), stage III Fibromyalgia (Chronic) Hypertension (Chronic) Hypokalemia Hyponatremia (Acute) Hypothyroidism (Chronic) IBS (irritable bowel syndrome) Polypharmacy (Chronic) Pressure injury of sacral region, stage 1 (Chronic) Recurrent Clostridioides difficile diarrhea Wound abscess (Resolved) Past Family History Family History Other Cancer Heart disease Hypertension Lung disease Past Surgical History Surgical History H/O carpal tunnel repair H/O inguinal hernia repair (Chronic) S/P cataract surgery Status post total hip replacement, left (Chronic) Social History Smoking Status: Former smoker Hx Alcohol Use: No Substance Use Type Other:: see urine toxocology Physical Exam Vital Signs Last Vital Signs Temp 36.9 C 12/24/19 07:30 Pulse 79 12/24/19 07:45 Resp 20 12/24/19 07:30 BP 132/78 12/24/19 07:30 Pulse Ox 97 12/24/19 07:30 Testing Laboratory Results 12/23/19 17:20 12/23/19 17:20 Electrocardiogram Date: 12/23/19 Findings: + NSR @ (56)
[2019-12-24] MEDS: CALCITRIOL 0.25 MCG CAPSULE PO SCH (09:18)
[2019-12-24] MEDS: lamoTRIgine 25 MG TAB PO SCH (09:18)
[2019-12-24] MEDS: DULOXETINE HCL 20 MG CAP PO SCH (09:18)
[2019-12-24] MEDS: predniSONE 5 MG TAB PO SCH (09:18)
[2019-12-24] MEDS: PANTOprazole 40 MG TAB PO SCH (09:19)
[2019-12-24] MEDS: FERROUS SULFATE 325 MG TAB PO SCH ×2 (09:19→17:12)
[2019-12-24] MEDS: POTASSIUM CHLORIDE 20 MEQ TABCR PO SCH ×2 (09:19→20:25)
[2019-12-24] MEDS: GABAPENTIN 300 MG CAP PO SCH ×3 (09:19→20:25)
[2019-12-24] MEDS ORDERED: PROPOFOL IV EMULSION 10 MG/ML 20 ML VIAL IV ONE (09:54)
[2019-12-24] MEDS ORDERED: ONDANSETRON INJ 2 MG/ML 2 ML VIAL ONE (09:54)
[2019-12-24] MEDS ORDERED: DEXAMETHASONE SOD INJ 4 MG/ML VIAL ONE (09:54)
[2019-12-24] MEDS ORDERED: MIDAZOLAM HCL 1 MG/ML 2ML VIAL ONE (09:54)
[2019-12-24] MEDS ORDERED: LIDOCAINE HCL 2% 2 ML VIAL/AMP(20MG/ML) INFIL ONE (09:54)
[2019-12-24] MEDS ORDERED: fentaNYL citrate 100 MCG/2 ML VIAL ONE (09:55)
[2019-12-24] MEDS ORDERED: HYDROmorphone INJ 1 MG/ML SYRINGE IV PRN (10:19)
[2019-12-24] MEDS ORDERED: ONDANSETRON INJ 2 MG/ML 2 ML VIAL IV PRN (10:19)
[2019-12-24] MEDS ORDERED: ATROPINE SULFATE 0.1 MG/ML 10ML SYR IV PRN (10:19)
--- NOTE | 2019-12-24 10:28 | History & Physical Bridge Note ---
Date of Service December 24, 2019 History & Physical Bridge Note I have examined the patient, reviewed the History & Physical and in the interval since the performance of the History & Physical I have noted the following changes of clinical significance: Will require closed reduction left total hip dislocation in OR.
--- NOTE | 2019-12-24 10:58 | Fluoroscopy Report ---
FL hip LT 2V CLINICAL HISTORY: CLOSED REDUCTION LT HIP COMPARISON STUDY: 12/24/2019 FLUOROSCOPY TIME: 15 seconds NUMBER OF FLUOROSCOPIC IMAGES: 3 FINDINGS: Anatomic alignment post closed reduction IMPRESSION: Anatomic alignment post closed reduction ACT 112: Negative or not required by law. The above report was generated using voice recognition software. It may contain grammatical, syntax or spelling errors. Electronically signed by: Mauricio Donnelly M.D. 12/24/2019 10:56 AM VALE
--- NOTE | 2019-12-24 10:59 | Post Operative Brief Note ---
Immediate Post Op Note v1 Date of Surgery December 24, 2019 Pre & Post Diagnosis Operation Date: 12/24/19 10:00 Pre-Op Diagnosis: Left Hip Dislocation of total hip arthroplasty Post-Op Diagnosis: Left Hip Dislocation of total hip arthroplasty I identified the patient and participated in the time-out.: Yes Procedure Operation Date: 12/24/19 10:00 Actual Procedures p Closed Reduction left total hip arthroplasty dislocation(Left) - Asif Doan DO Surgeon Asif Doan DO [employer] Teto brothers PA-C Estimated Blood Loss 0 Findings Consistent with Post-Op Diagnosis Specimens None Anesthesia Type General Complications none Disposition Accompanied Patient To Recovery: Yes Disposition: Recovery Room
--- NOTE | 2019-12-24 11:06 | Anesthesiology Progress Note ---
Date of Service December 24, 2019 Anesthesia Post Procedure Vital Signs Vital Signs: Temp Pulse Pulse Pulse Resp BP Pulse Ox 12/24/19 10:55 67 15 130/74 99 12/24/19 10:46 36.4 C L 74 16 106/70 97 12/24/19 07:45 79 12/24/19 07:30 36.9 C 76 20 132/78 97 12/24/19 03:51 36.8 C 82 20 130/74 98 12/23/19 23:31 72 12/23/19 22:33 37.0 C 72 20 110/67 97 12/23/19 18:40 86 12/23/19 18:00 37.3 C 82 16 151/76 H 98 Pain Intensity Left Hip: Pain Intensity: 6 Transfer of Care Handoff Completed per policy Notes Mental Status: alert / awake / arousable Patient Amnestic to Procedure: Yes Nausea / Vomiting: adequately controlled Pain: adequately controlled Airway Patency, RR, SpO2: stable & adequate BP & HR: stable & adequate Hydration State: stable & adequate Anesthetic Complications: no major complications apparent
--- NOTE | 2019-12-24 11:30 | XRay Report ---
XR hip LT 2V w pelvis CLINICAL HISTORY: postop closed reduction DULCE MARIA COMPARISON: None. DISCUSSION: Anatomic alignment post closed reduction There is no evidence for soft tissue swelling. IMPRESSION: Anatomic alignment post closed reduction ACT 112: Negative or not required by law. The above report was generated using voice recognition software. It may contain grammatical, syntax or spelling errors. Electronically signed by: Mauricio Donnelly M.D. 12/24/2019 11:29 AM
--- NOTE | 2019-12-24 11:47 | Operative Report (OR) ---
DATE OF OPERATION: 12/24/2019 PREOPERATIVE DIAGNOSIS: Dislocation of left total hip arthroplasty. POSTOPERATIVE DIAGNOSIS: Dislocation of left total hip arthroplasty. PROCEDURE: Closed reduction of left total hip arthroplasty dislocation. SURGEON: Asif Doan DO. DORMITORY COUNSELOR: Teto Marsh PA-C who was present for patient positioning,sterile prep and drape, management of retractors and instruments. He was present through the critical portions of the case including wound closure, application of sterile dressing and transport of the patient to recovery. The patient was transferred to the OR and the OR bed by the BIPIN with assistance, stabilizing the pelvis during the reduction and also with assistance in reducing the femoral head into the acetabulum in an atraumatic fashion. ANESTHESIA: General with MAC. SPECIMENS: None. DRAINS: None. COMPLICATIONS: None. BLOOD LOSS: Zero. PERTINENT HISTORY: This is a 64-year-old female who had a total hip arthroplasty by my partner, Dr. Duckworth, approximately 20-30 years ago. She had a well-functioning hip for that period of time; however, yesterday she was put herself in a mechanically disadvantage position when she was flexed with her left leg and reaching for a pair of pants and forcefully jerked to try to grab the pants and she felt a painful clunk in her left hip. She was then unable to ambulate. She had an obvious deformity of her left hip and shortening. She notified staff and subsequently had consultation by orthopedics at that time. I then scheduled her for a closed reduction of her left hip as necessary. This was confirmed by radiographs ordered by Dr. Angeli Turner. All potential risks, benefits, complications, alternatives, rehab potential for incomplete relief of symptoms, need for further surgery, DVT, PE, , persistent pain, swelling, scarring, weakness, neurovascular injury, wound complications, bone fracture or persistent dislocation were discussed with the patient. The patient decided to proceed with the procedure as indicated. DESCRIPTION OF PROCEDURE: The patient was taken to the operative suite, placed supine on the operating room table. After review of the consent and identification of proper operative site, surgical timeout was performed. The patient was anesthetized with monitored anesthesia care and after stabilization of the pelvis with manual palpation, the hip was then flexed and internally rotated with traction. A palpable clunk was experienced and then the leg lengths were then noted to be equal. Internal and external rotation was then restored. Normal function of the left hip was noted. AP and lateral fluoroscopic images were obtained to confirm reduction of the left hip. There was noted to be some shuck under live fluoroscopic assistance, confirming some laxity in the left hip joint; however, concentric reduction was achieved without too much difficulty. Next, the patient was then awakened and taken to recovery in stable condition with an abduction pillow brace. I attest to the content of the Intraoperative Record and any orders documented therein. Any exception s are noted below.
--- NOTE | 2019-12-24 11:56 | Psychiatric Consultation ---
Date of Consultation December 24, 2019 Impression / Recommendations Impression 64 yo female with history of bipolar II disorder, borderline personality disorder (likely primary) >1 week post tramadol OD. She had been denying suicidal thoughts on unit and preparing for discharge planning. Ideally she would remain hospitalized through the weekend. Depending how long she is monitored on the med floor, may be able to finalize safety plan from there. d/c plan was to involve Dr. Osman with referrals to [facility] psych and therapy when office reopened. Psych History Identifying Data 64 yo female initially admitted to [facility] 12/15 following significant tramadol OD as a suspected suicide attempt, transferred to psych 12/19 following medical clearance. Transferred back to medicine 12/22 in anticipation of ortho procedure f or left hip arthroplasty dislocation. Chief Complaint "I'm in pain but thankful for the care I am receiving". History of Present Illness patient has rather consistently denied that the tramadol OD was a suicide attempt but a note perceived as intention was found. She admitted to feelings of being overwhelmed by her chronic health conditions, particularly following the of her 1 year ago. She hadn't been taking psychiatric medications because of strained relationship with [facility] psych clinic. She was restarted on lamictal, cymbalta, and neurontin (many of which are also for neuropathy). She was tolerating meds, unclear if her diarrhea was in any way related as chronic. She experienced acute hip pain and was diagnosed with arthroplasty dislocation. Past Psychiatric History Previous Psych History: on file, extensive med trials, needs outpatient service provider. Allergies Allergy/AdvReac Type Severity Reaction Status Date / Time cyclobenzaprine Allergy Intermediate RASH AND Verified 11/28/19 12:08 SWELLING fentanyl Allergy Intermediate MAJOR FEET Verified 11/28/19 12:08 SWELLING ketorolac [From Toradol] Allergy Unknown SEE COMMENT Verified 11/28/19 12:08 oxcarbazepine Allergy Unknown UNKNOWN - Verified 11/28/19 12:08 PT DOESN'T REMEMBER risperidone AdvReac Intermediate exhaustion Verified 11/28/19 12:08 clonazepam AdvReac Mild nausea Verified 11/28/19 12:08 Home Medications Home Medications Medication Instructions Recorded Confirmed Type albuterol sulfate 1 puff INHALATION QID PRN 08/18/18 12/20/19 History prednisone 5 mg PO DAILY 08/18/18 12/20/19 History hyoscyamine sulfate 0.125 mg PO Q4 PRN 01/15/19 12/23/19 History acetaminophen 500 mg tablet 500 mg PO QID PRN 11/28/19 12/23/19 History calcitriol 0.25 mcg capsule 0.25 mcg PO DAILY #30 cap 12/12/19 12/23/19 Rx chlorthalidone 25 mg PO QAM 7 Days #7 tab 12/20/19 12/23/19 Rx acetaminophen [Mapap 650 mg PO Q4H PRN #1 tab 12/23/19 12/23/19 Rx (acetaminophen)] aluminum-magnesium hydroxide 30 ml PO Q4H PRN #1 ml 12/23/19 12/23/19 Rx [MAG-AL] bismuth subsalicylate [Kaopectate 15 ml PO PRN #1 ml 12/23/19 12/23/19 Rx (bismuth subsalicy)] diclofenac sodium [Voltaren] 2 g EXT Q6H PRN 1 Days #1 gm 12/23/19 12/23/19 Rx duloxetine 40 mg PO QAM #1 cap 12/23/19 12/23/19 Rx ferrous sulfate 325 mg PO BIDM #1 tab 12/23/19 12/23/19 Rx gabapentin 300 mg PO TID #1 cap 12/23/19 12/23/19 Rx hydroxyzine HCl 25 mg PO Q4H PRN #1 tab 12/23/19 12/23/19 Rx hydroxyzine HCl 50 mg PO HSZ #1 tab 12/23/19 12/23/19 Rx lamotrigine [Lamictal] 25 mg PO QAM #1 tab 12/23/19 12/23/19 Rx levothyroxine [Synthroid] 50 mcg PO DAILYBB #1 tab 12/23/19 12/23/19 Rx magnesium hydroxide [Milk of 30 ml PO DAILY PRN #1 ml 12/23/19 12/23/19 Rx Magnesia] metoprolol tartrate 6.25 mg PO BID #1 tab 12/23/19 12/23/19 Rx ondansetron 8 mg PO Q8H PRN #1 tab 12/23/19 12/23/19 Rx pantoprazole 40 mg PO QAM #1 tab 12/23/19 12/23/19 Rx potassium chloride [Klor-Con M20] 20 meq PO BID #1 tab 12/23/19 12/23/19 Rx sodium chloride [Saline Mist] 1 - 2 spray NA PRN #1 ml 12/23/19 12/23/19 Rx Personal History Born In: [place] Beliefs That Will Affect Care: None Patient History Medical History Bipolar II disorder Borderline personality disorder (Chronic) C. difficile diarrhea (Chronic) Chronic pain CKD (chronic kidney disease), stage III Fibromyalgia (Chronic) Hypertension (Chronic) Hypokalemia Hyponatremia (Acute) Hypothyroidism (Chronic) IBS (irritable bowel syndrome) Polypharmacy (Chronic) Pressure injury of sacral region, stage 1 (Chronic) Recurrent Clostridioides difficile diarrhea Wound abscess (Resolved) Surgical History H/O carpal tunnel repair H/O inguinal hernia repair (Chronic) S/P cataract surgery Status post total hip replacement, left (Chronic) Family History Other Cancer Heart disease Hypertension Lung disease Social History Preferred Language: Maori Communication Ability: Effective Mill [employer] Required: No Beliefs That Will Affect Care: None marital status: / Current Living Situation: Alone current occupational status: retired Feels Safe at Home: Yes Smoking Status: Former smoker Hx Alcohol Use: No Physical Exam Psychiatric: Orientation: alert Apperance: appropriately groomed Eye Contact: good eye contact Speech: normal rate/rhythm/volume of speech Affect: + depressed affect Mood: + depressed mood Thought Process: linear/logical thought process Thought Content: reality based without delusions Suicidal Thoughts: denies suicidal thoughts Homicidal Thoughts: denies homicidal thoughts Hallucinations: no auditory hallucinations and no visual hallucinations Insight: + limited insight Judgement: + limited judgement Vital Signs (Past 24 Hours): Last Vital Signs Temp 36.7 C 12/24/19 11:37 Pulse 70 12/24/19 11:37 Resp 16 12/24/19 11:37 BP 150/88 H 12/24/19 11:37 Pulse Ox 99 12/24/19 11:37 Review of Systems All systems reviewed & are unremarkable except as noted in HPI & below Results & Data (PSY) Medications Administered Acetaminophen (Tylenol) 650 mg PO Q6H [facility] Stop: 01/22/20 17:59 Last Admin: 12/24/19 05:35 Dose: 650 mg Documented by: [id number] Admin: 12/23/19 23:41 Dose: 650 mg Documented by: [id number] Admin: 12/23/19 18:45 Dose: 650 mg Documented by: [id number] Calcitriol (Rocaltrol) 0.25 mcg PO DAILY [facility] Stop: 01/23/20 08:59 Last Admin: 12/24/19 09:18 Dose: 0.25 mcg Documented by: [id number] Duloxetine HCl (Cymbalta) 40 mg PO QAOK [facility] [place] Stop: 01/23/20 08:59 Last Admin: 12/24/19 09:18 Dose: 40 mg Documented by: [id number] Ferrous Sulfate (Feosol) 325 mg PO BIDM [facility] Stop: 01/22/20 16:59 Last Admin: 12/24/19 09:19 Dose: 325 mg Documented by: [id number] Admin: 12/23/19 20:47 Dose: 325 mg Documented by: [id number] Gabapentin (Neurontin) 300 mg PO TID [facility] Stop: 01/22/20 20:59 Last Admin: 12/24/19 09:19 Dose: 300 mg Documented by: [id number] Admin: 12/23/19 20:48 Dose: 300 mg Documented by: [id number] Hydroxyzine HCl (Vistaril) 50 mg PO HSZ [facility] Stop: 01/22/20 21:59 Last Admin: 12/23/19 20:49 Dose: 50 mg Documented by: [id number] Lamotrigine (Lamictal) 25 mg PO QAM [facility] Stop: 01/23/20 08:59 Last Admin: 12/24/19 09:18 Dose: 25 mg Documented by: [id number] Levothyroxine Sodium (Synthroid) 50 mcg PO DAILYBB [facility] Stop: 01/23/20 06:29 Last Admin: 12/24/19 05:36 Dose: 50 mcg Documented by: [id number] Metoprolol Tartrate (Lopressor) 6.25 mg PO BID [facility] Stop: 01/22/20 20:59 Last Admin: 12/23/19 20:49 Dose: 6.25 mg Documented by: [id number] Pantoprazole Sodium (Protonix) 40 mg PO QAM [facility] Stop: 01/23/20 08:59 Last Admin: 12/24/19 09:19 Dose: 40 mg Documented by: [id number] Potassium Chloride (Klor-Con M20) 20 meq PO BID [facility] Stop: 01/22/20 20:59 Last Admin: 12/24/19 09:19 Dose: 20 meq Documented by: [id number] Admin: 12/23/19 20:48 Dose: 20 meq Documented by: [id number] Prednisone (Prednisone) 5 mg PO DAILY [facility] Stop: 01/23/20 08:59 Last Admin: 12/24/19 09:18 Dose: 5 mg Documented by: [id number] Coding Level of Care Code 32013 [facility] Intl Hosp Care Lvl 1
[2019-12-24] MEDS: METOPROLOL TARTRATE 25 MG TAB PO SCH ×2 (11:58→20:26)
--- NOTE | 2019-12-24 19:11 | Hospitalist Progress Note ---
Date of Service December 24, 2019 Assessment & Plan (1) Hip dislocation, left: 64-year-old female with history of recent encephalopathy secondary to tramadol overdose, bipolar disorder, Osteoarthritis and chronic prednisone, hypertension, hypothyroidism, presented with acute left hip pain this morning. Acute left hip dislocation History of left hip arthroplasty --Evaluated by orthopedic service, now s/p closed reduction of left total hip arthroplasty dislocation by Dr. Doan (12/24/19) -Patient tolerated procedure well -We will obtain PT OT evaluations --For pain control, patient was provided with Tylenol 650 mg every 6 hours, will also provide lidocaine patch for left hip --Advised admission to [facility] with telemetry given episode of 4 beat V. tach last week in the setting of hypokalemia, tramadol overdose EKG ordered yesterday, unremarkable -Telemetry reviewed, also unremarkable Continue usual metoprolol 6.25 mg twice a day Bipolar disorder --Continue Cymbalta, lamotrigine Return to behavioral health unit once cleared by Ortho and medical service -Discussed return to psychiatry unit with psychiatry, currently there is no psychiatry room available for inpatient admission, also psychiatry feels that patient was ready for discharge from their service -see their note for further detail Recent encephalopathy secondary to tramadol overdose --Mental status stable at this time -Patient seems motivated to get better, denies any SI Hypertension --Continue losartan at lower dose, 50 mg every morning, hold chlorthalidone Osteoarthritis, on chronic prednisone --Continue usual prednisone 5 mg p.o. daily Hypothyroidism --Continue usual levothyroxine DVT prophylaxis SCDs Disposition Return to behavioral health unit once cleared by Ortho and medical service Discussed return to psychiatry unit with psychiatry, currently there is no psychiatry room available for inpatient admission, also psychiatry feels that patient was ready for discharge from their service -see their note for further detail Admission and Anticipated Discharge Date Admission Date: December 23, 2019 Subjective Patient is lying in bed, in no acute distress. She was previously in inpatient psychiatry unit. She however dislocated her left hip, and so needed orthopedic consultation and procedure. She underwent closed reduction with Dr. Doan earlier today and tolerated procedure well. Currently has minimal pain. It was discussed yesterday with Dr. Doan that after the procedure patient is safe for going back to inpatient psychiatry unit. I discussed this with psychiatry liaison, however was told that currently there is no inpatient psychiatry room available and also that they planned to discharge the patient anyhow. They feel that she is safe, denies any suicidal ideation, and does not need to be per psychiatry on their unit. All the outpatient follow-ups are set up for the patient with psychiatry. Patient denies any fevers, chills, chest pain, shortness of breath, abdominal pain, nausea or vomiting. On my interview, pt is inquiring about going back to psychiatry unit because she felt that group therapy was very helpful for her and that she could still benefit from it. Discussed this with psychiatry, as above, they feel that patient is safe for discharge per psychiatry. They will follow along while patient is in the hospital. Review of Systems Review of Systems: All systems reviewed & are unremarkable except as noted in HPI & below Constitutional: no fever and no chills Respiratory: no cough and no dyspnea Cardiovascular: no chest pain and no palpitations Gastrointestinal: no abdominal pain, no nausea and no vomiting Genitourinary: no dysuria Physical Exam Physical Exam: Constitutional: + thin female sitting up in bed, in no acute distress Eyes: PERRL, conjunctivae normal, anicteric sclerae EOM intact bilaterally ENMT: external ear and nose normal, oropharynx normal Neck: normal visual inspection Respiratory: normal respiratory effort, lungs clear to auscultation, no wh eezing, rhonchi, crackles Cardiovascular: Rate/Rhythm: regular rate Gastrointestinal (Abdomen): normal bowel sounds, soft, nontender, nondistended Musculoskeletal: Head/Neck/Chest: normocephalic and head atraumatic, lower extremities well-perfused, no sensory loss, moves extremities spontaneously, no significant pain on palpation of her left hip Neurologic: PERRL, EOMI, accommodation nl, no face palsy, no dysarthria Psychiatric: Orientation: alert and cooperative, speech somewhat pressured, and affect somewhat anxious Results & Data Results & Data ([facility]) Vital Signs (Past 12 Hours) Vital Signs Temp Pulse Pulse Pulse Resp BP BP 12/24/19 15:00 76 12/24/19 14:59 37.5 C 68 16 161/90 H 12/24/19 13:48 37.2 C 80 14 123/83 12/24/19 12:38 36.8 C 78 20 156/95 H 12/24/19 12:03 36.7 C 74 16 160/97 H 12/24/19 11:37 36.7 C 70 16 150/88 H 12/24/19 11:05 36.6 C 56 L 16 132/82 12/24/19 10:55 67 15 130/74 12/24/19 10:46 36.4 C L 74 16 106/70 12/24/19 07:45 79 12/24/19 07:30 36.9 C 76 20 132/78 Pulse Ox 12/24/19 15:00 12/24/19 14:59 96 12/24/19 13:48 99 12/24/19 12:38 98 12/24/19 12:03 100 12/24/19 11:37 99 12/24/19 11:05 98 12/24/19 10:55 99 12/24/19 10:46 97 12/24/19 07:45 12/24/19 07:30 97 Medications Administered Current Inpatient Medications Acetaminophen (Tylenol) 650 mg PO Q6H [facility] Stop: 01/22/20 17:59 Last Admin: 12/24/19 17:12 Dose: 650 mg Documented by: Calcitriol (Rocaltrol) 0.25 mcg PO DAILY [facility] Stop: 01/23/20 08:59 Last Admin: 12/24/19 09:18 Dose: 0.25 mcg Documented by: Duloxetine HCl (Cymbalta) 40 mg PO QAM [facility] Stop: 01/23/20 08:59 Last Admin: 12/24/19 09:18 Dose: 40 mg Documented by: Ferrous Sulfate (Feosol) 325 mg PO BIDM [facility] Stop: 01/22/20 16:59 Last Admin: 12/24/19 17:12 Dose: 325 mg Documented by: Gabapentin (Neurontin) 300 mg PO TID [facility] Stop: 01/22/20 20:59 Last Admin: 12/24/19 13:50 Dose: 300 mg Documented by: Hydroxyzine HCl (Vistaril) 25 mg PO Q4H PRN PRN Reason: Anxiety Stop: 01/22/20 16:59 Hydroxyzine HCl (Vistaril) 50 mg PO HSZ [facility] Stop: 01/22/20 21:59 Last Admin: 12/23/19 20:49 Dose: 50 mg Documented by: Lamotrigine (Lamictal) 25 mg PO QAM [facility] Stop: 01/23/20 08:59 Last Admin: 12/24/19 09:18 Dose: 25 mg Documented by: Levothyroxine Sodium (Synthroid) 50 mcg PO DAILYBB [facility] Stop: 01/23/20 06:29 Last Admin: 12/24/19 05:36 Dose: 50 mcg Documented by: Lidocaine (Lidoderm 5%) [facility] [place] [facility] Stop: 01/23/20 18:14 Metoprolol Tartrate (Lopressor) 6.25 mg PO BID [facility] Stop: 01/22/20 20:59 Last Admin: 12/24/19 11:58 Dose: 6.25 mg Documented by: Miscellaneous (Remove Lidoderm Patch) 1 ea N/A DAILY@2100 [facility] Stop: 01/23/20 20:59 Pantoprazole Sodium (Protonix) 40 mg PO QAM [facility] Stop: 01/23/20 08:59 Last Admin: 12/24/19 09:19 Dose: 40 mg Documented by: Potassium Chloride (Klor-Con M20) 20 meq PO BID [facility] Stop: 01/22/20 20:59 Last Admin: 12/24/19 09:19 Dose: 20 meq Documented by: Prednisone (Prednisone) 5 mg PO DAILY [facility] Stop: 01/23/20 08:59 Last Admin: 12/24/19 09:18 Dose: 5 mg Documented by:
[2019-12-24] MEDS: LIDOCAINE 5% 1 PATCH TD SCH (19:35)
[2019-12-25] MEDS: ACETAMINOPHEN 325 MG TAB PO SCH ×4 (05:35→23:47)
[2019-12-25] MEDS: LEVOTHYROXINE SODIUM 50 MCG TABLET PO SCH (05:36)
--- NOTE | 2019-12-25 05:38 | Electrocardiogram Report ---
Test Reason : Blood Pressure : / mmHG Vent. Rate : 078 BPM Atrial Rate : 078 BPM P-R Int : 122 ms QRS Dur : 078 ms QT Int : 370 ms P-R-T Axes : 075 057 065 degrees QTc Int : 421 ms Normal sinus rhythm Possible Left atrial enlargement Borderline ECG When compared with ECG of 18-DEC-2019 07:07, Nonspecific T wave abnormality no longer evident in Inferior leads T wave inversion no longer evident in Anterior leads Confirmed by Ajith Vazquez ([id number]) on 12/25/2019 5:38:00 AM Referred By: Robby Little Confirmed By:Ajith Vazquez
--- NOTE | 2019-12-25 07:24 | Orthopedic Progress Note ---
Date of Service December 25, 2019 Assessment & Plan (1) Hip dislocation, left: 64 yo female stable POD #1 s/p left DULCE MARIA closed reduction (1st time dislocation) 1. Med management 2. DVT prophylaxis- low dose ASA, SCDS 3. PT/OT 4. D/C planning- per medicine. Ortho to sign off. I want over d/c instructions/DULCE MARIA precautions in depth with pt. Pt should f/u with Dr Doan ~ 2 weeks Admission and Anticipated Discharge Date Admission Date: December 23, 2019 Subjective Pt resting in bed, denies pain Physical Exam Physical Exam: Hip located, toes mobile, NVI Results & Data ([facility]) Vital Signs (Past 12 Hours) Vital Signs Temp Pulse Pulse Resp BP Pulse Ox 12/25/19 04:35 36.6 C 81 20 131/90 99 12/25/19 00:10 67 12/24/19 22:59 36.3 C L 70 20 144/91 H 99 12/24/19 19:36 37.5 C 80 20 125/80 98
[2019-12-25 07:35] LABS: Hematocrit (blood only) 40.2 % (37-47); Hemoglobin 13.7 g/dL (12.0-16.0); Mean Corpuscular Hemoglobin 31.4 pg (25-34); Mean Corpuscular Hgb Conc 34.1 g/dL (32-36); Mean Corpuscular Volume 92.2 fL (80-100); Mean Platelet Volume 8.5 fL (7.4-10.4); Platelet Count 256 K/uL (130-400); RDW Coefficient of Variation 12.8 % (11.5-14.5); RDW Standard Deviation 42.7 fL (36.4-46.3); Red Blood Count 4.36 M/uL (4.2-5.4); White Blood Count 6.71 K/uL (4.8-10.8)
[2019-12-25 08:02] LABS: BUN Creatinine Ratio 23.6 (10-20); Calcium 9.5 mg/dl (8.5-10.1); Creatinine Clr Calc Pharmacy 55.8 ml/min; Est GFR (African American) 74.7; Est GFR (Non-African American) 64.5; Potassium 4.2 mmol/L (3.5-5.1)
[2019-12-25 08:10] LABS: Phosphorus 3.4 mg/dl (2.5-4.9)
[2019-12-25] MEDS: FERROUS SULFATE 325 MG TAB PO SCH ×2 (08:52→17:24)
[2019-12-25] MEDS: POTASSIUM CHLORIDE 20 MEQ TABCR PO SCH (08:52)
[2019-12-25] MEDS: CALCITRIOL 0.25 MCG CAPSULE PO SCH (08:52)
[2019-12-25] MEDS: METOPROLOL TARTRATE 25 MG TAB PO SCH ×2 (08:52→20:21)
[2019-12-25] MEDS: lamoTRIgine 25 MG TAB PO SCH (08:52)
[2019-12-25] MEDS: DULOXETINE HCL 20 MG CAP PO SCH (08:52)
[2019-12-25] MEDS: predniSONE 5 MG TAB PO SCH (08:52)
[2019-12-25] MEDS: PANTOprazole 40 MG TAB PO SCH (08:52)
[2019-12-25] MEDS: LIDOCAINE 5% 1 PATCH TD SCH (08:53)
[2019-12-25] MEDS: GABAPENTIN 300 MG CAP PO SCH ×3 (08:53→20:20)
--- NOTE | 2019-12-25 18:48 | Hospitalist Progress Note ---
Date of Service December 25, 2019 Assessment & Plan (1) Hip dislocation, left: 64-year-old female with history of recent encephalopathy secondary to tramadol overdose, bipolar disorder, Osteoarthritis and chronic prednisone, hypertension, hypothyroidism, presented with acute left hip pain this morning. Acute left hip dislocation History of left hip arthroplasty --Evaluated by orthopedic service, now s/p closed reduction of left total hip arthroplasty dislocation by Dr. Doan (12/24/19) -Patient tolerated procedure well - Ortho recommends low-dose aspirin and SCDs for DVT prophylaxis, follow-up with Dr. Doan in 2 weeks. - Ortho provided discharge instructions/DULCE MARIA precautions to the patient - PT OT evaluations obtained - Inpatient rehab recommended by PT --For pain control, patient was provided with Tylenol 650 mg every 6 hours, and lidocaine patch for left hip --Advised admission to [facility] with telemetry given episode of 4 beat V. tach last week in the setting of hypokalemia, tramadol overdose EKG ordered on admission, unremarkable -Telemetry reviewed, also unremarkable Continue usual metoprolol 6.25 mg twice a day Bipolar disorder --Continue Cymbalta, lamotrigine Return to behavioral health unit once cleared by Ortho and medical service -Discussed return to psychiatry unit with psychiatry, currently there is no psychiatry room available for inpatient admission, also psychiatry feels that patient was ready for discharge from their service -see their note for further detail Recent encephalopathy secondary to tramadol overdose --Mental status stable at this time -Patient seems motivated to get better, denies any SI Hypertension --Continue losartan at lower dose, 50 mg every morning, hold chlorthalidone Osteoarthritis, on chronic prednisone --Continue usual prednisone 5 mg p.o. daily Hypothyroidism --Continue usual levothyroxine DVT prophylaxis SCDs Disposition Return to behavioral health unit once cleared by Ortho and medical service Discussed return to psychiatry unit with psychiatry, currently there is no psychiatry room available for inpatient admission, also psychiatry feels that patient was ready for discharge from their service -see their note for further detail Inpatient rehab recommended by PT Admission and Anticipated Discharge Date Admission Date: December 23, 2019 Subjective Patient is lying in bed, in no acute distress. She was previously in inpatient psychiatry unit. She however dislocated her left hip, and so needed orthopedic consultation and procedure. She underwent closed reduction with Dr. Doan yesterday, December 23 and tolerated procedure well. It was discussed with Dr. Doan that after the procedure patient was safe to go back to inpatient psychiatry unit. I discussed this with psychiatry liaison, however was told that currently there is no inpatient psychiatry room available and also that they planned to discharge the patient anyhow. They feel that patient is safe, denies any suicidal ideation, and does not need to be per psychiatry on their unit. All the outpatient follow-ups are set up for the patient with psychiatry. Patient denies any fevers, chills, chest pain, shortness of breath, abdominal pain, nausea or vomiting. Patient was seen by physical therapist today, recommended inpatient rehab - patient is excited to possibly go [facility] as she was there previously and had very good experience there. Review of Systems Review of Systems: All systems reviewed & are unremarkable except as noted in HPI & below Constitutional: no fever and no chills Respiratory: no cough and no dyspnea Cardiovascular: no chest pain and no palpitations Gastrointestinal: no abdominal pain, no nausea and no vomiting Physical Exam Physical Exam: Constitutional: + thin female sitting up in bed, in no acute distress Eyes: PERRL, conjunctivae normal, anicteric sclerae EOM intact bilaterally ENMT: external ear and nose normal, oropharynx normal Neck: normal visual inspection Respiratory: normal respiratory effort, lungs clear to auscultation, no wheezing, rhonchi, crackles Cardiovascular: Rate/Rhythm: regular rate Gastrointestinal (Abdomen): normal bowel sounds, soft, nontender, nondistended Musculoskeletal: Head/Neck/Chest: normocephalic and head atraumatic, lower extremities well-perfused, no sensory loss, moves extremities spontaneously, m ild pain on palpation of her left hip Neurologic: PERRL, EOMI, accommodation nl, no face palsy, no dysarthria Psychiatric: Orientation: alert and cooperative, speech somewhat pressured, and affect somewhat anxious Results & Data Results & Data ([facility]) Vital Signs (Past 12 Hours) Vital Signs Temp Pulse Pulse Resp BP BP Pulse Ox 12/25/19 16:01 37.3 C 89 18 117/87 98 12/25/19 15:01 94 H 12/25/19 13:19 37.2 C 12/25/19 10:58 37.6 C H 96 H 20 123/88 92 12/25/19 08:59 37.5 C 06/08/20 08:23 63 12/25/19 07:38 37.6 C H 87 20 158/101 H 95 Laboratory Results 12/25/19 12/25/19 Range/Units 07:11 07:11 WBC 6.71 (4.8-10.8) K/uL RBC 4.36 (4.2-5.4) M/uL Hgb 13.7 (12.0-16.0) g/dL Hct 40.2 (37-47) % MCV 92.2 (80-100) fL MCH 31.4 (25-34) pg MCHC 34.1 (32-36) g/dL RDW Std Deviation 42.7 (36.4-46.3) fL RDW Coeff of [place] 12.8 (11.5-14.5) % Plt Count 256 (130-400) K/uL MPV 8.5 (7.4-10.4) fL Sodium 139 (136-145) mmol/L Potassium 4.2 (3.5-5.1) mmol/L Chloride 107 (98-107) mmol/L Carbon Dioxide 26 (21-32) mmol/L Anion Gap 6.0 (3-11) BUN 22 H (7-18) mg/dl Creatinine 0.93 (0.6-1.2) mg/dl Est Cr Clr Drug Dosing 55.8 ml/min Est GFR ( Amer) 74.7 Est GFR (Non-Af Amer) 64.5 BUN/Creatinine Ratio 23.6 H (10-20) Glucose 122 H (70-99) mg/dl Calcium 9.5 (8.5-10.1) mg/dl Phosphorus 3.4 (2.5-4.9) mg/dl Magnesium 2.0 (1.8-2.4) mg/dl Medications Administered Current Inpatient Medications Acetaminophen (Tylenol) 650 mg PO Q6H [facility] Stop: 01/22/20 17:59 Last Admin: 12/25/19 17:24 Dose: 650 mg Documented by: Calcitriol (Rocaltrol) 0.25 mcg PO DAILY [facility] Stop: 01/23/20 08:59 Last Admin: 12/25/19 08:52 Dose: 0.25 mcg Documented by: Duloxetine HCl (Cymbalta) 40 mg PO QAM [facility] Stop: 07/07/20 08:59 Last Admin: 12/25/19 08:52 Dose: 40 mg Documented by: Ferrous Sulfate (Feosol) 325 mg PO BIDM [facility] Stop: 01/22/20 16:59 Last Admin: 12/25/19 17:24 Dose: 325 mg Documented by: Gabapentin (Neurontin) 300 mg PO TID [facility] Stop: 01/22/20 20:59 Last Admin: 12/25/19 13:02 Dose: 300 mg Documented by: Hydroxyzine HCl (Vistaril) 25 mg PO Q4H PRN PRN Reason: Anxiety Stop: 01/22/20 16:59 Hydroxyzine HCl (Vistaril) 50 mg PO HSZ [facility] Stop: 01/22/20 21:59 Last Admin: 12/24/19 20:28 Dose: 50 mg Documented by: Lamotrigine (Lamictal) 25 mg PO QAM [facility] Stop: 01/23/20 08:59 Last Admin: 12/25/19 08:52 Dose: 25 mg Documented by: Levothyroxine Sodium (Synthroid) 50 mcg PO DAILYBB [facility] Stop: 01/23/20 06:29 Last Admin: 12/25/19 05:36 Dose: 50 mcg Documented by: Lidocaine (Lidoderm 5%) [facility] [place] Stop: 01/23/20 18:14 Last Admin: 12/25/19 08:53 Dose: 1 patch Documented by: Metoprolol Tartrate (Lopressor) 6.25 mg PO BID [facility] Stop: 01/22/20 20:59 Last Admin: 12/25/19 08:52 Dose: 6.25 mg Documented by: Miscellaneous (Remove Lidoderm Patch) 1 ea N/A DAILY@2100 [facility] Stop: 01/23/20 20:59 Last Admin: 12/24/19 20:24 Dose: Not Given Documented by: Pantoprazole Sodium (Protonix) [facility] [place] Stop: 01/23/20 08:59 Last Admin: 12/25/19 08:52 Dose: 40 mg Documented by: Potassium Chloride (Klor-Con M20) 20 meq PO QAM [facility] Stop: 01/25/20 08:59 Prednisone (Prednisone) 5 mg PO DAILY [facility] Stop: 01/23/20 08:59 Last Admin: 12/25/19 08:52 Dose: 5 mg Documented by:
[2019-12-25] MEDS: DICLOFENAC SOD 1% GEL 100 GM TUBE EXT PRN (21:33)
[2019-12-26] MEDS: ACETAMINOPHEN 325 MG TAB PO SCH ×4 (05:53→23:41)
[2019-12-26] MEDS: LEVOTHYROXINE SODIUM 50 MCG TABLET PO SCH (05:53)
--- NOTE | 2019-12-26 06:43 | Hospitalist Progress Note ---
Date of Service December 26, 2019 Assessment & Plan (1) Hip dislocation, left: 64-year-old female with history of recent encephalopathy secondary to tramadol overdose, bipolar disorder, Osteoarthritis and chronic prednisone, hypertension, hypothyroidism, presented with acute left hip pain this morning. Acute left hip dislocation History of left hip arthroplasty --Evaluated by orthopedic service, now s/p closed reduction of left total hip arthroplasty dislocation by Dr. Doan (12/24/19) -Patient tolerated procedure well - Ortho recommends low-dose aspirin and SCDs for DVT prophylaxis, follow-up with Dr. Doan in 2 weeks. - Ortho provided discharge instructions/DULCE MARIA precautions to the patient - PT OT evaluations obtained - Inpatient rehab recommended by PT --For pain control, patient was provided with Tylenol 650 mg every 6 hours, and lidocaine patch for left hip --Advised admission to [facility] with telemetry given episode of 4 beat V. tach last week in the setting of hypokalemia, tramadol overdose EKG ordered on admission, unremarkable -Telemetry reviewed, also unremarkable Continue metoprolol 6.25 mg twice a day Bipolar disorder --Continue Cymbalta, lamotrigine Return to behavioral health unit once cleared by Ortho and medical service -Discussed return to psychiatry unit with psychiatry, currently there is no psychiatry room available for inpatient admission, also psychiatry feels that patient was ready for discharge from their service -see their note for further detail Recent encephalopathy secondary to tramadol overdose --Mental status stable at this time -Patient seems motivated to get better, denies any SI Hypertension --Continue losartan at lower dose, 50 mg every morning, hold chlorthalidone Osteoarthritis, on chronic prednisone --Continue usual prednisone 5 mg p.o. daily Hypothyroidism --Continue usual levothyroxine DVT prophylaxis SCDs Disposition Return to behavioral health unit once cleared by Ortho and medical service Discussed return to psychiatry unit with psychiatry, currently there is no psychiatry room available for inpatient admission, also psychiatry feels that patient was ready for discharge from their service -see their note for further detail Inpatient rehab recommended by PT Admission and Anticipated Discharge Date Admission Date: December 23, 2019 Subjective Patient is lying in bed, in no acute distress. She was previously in inpatient psychiatry unit. She however dislocated her left hip, and so needed orthopedic consultation and procedure. She underwent closed reduction with Dr. Doan, on December 23 and tolerated procedure well. It was discussed with Dr. Doan that after the procedure patient was safe to go back to inpatient psychiatry unit. I discussed this with psychiatry liaison, however was told that currently there is no inpatient psychiatry room available and also that they planned to discharge the patient anyhow. They feel that patient is safe, denies any suicidal ideation, and does not need to be per psy chiatry on their unit. All the outpatient follow-ups are set up for the patient with psychiatry. Patient denies any fevers, chills, chest pain, shortness of breath, abdominal pain, nausea or vomiting. Patient was seen by physical therapist, recommended inpatient rehab - patient is excited [facility] as she was there previously and had very good experience there. Currently patient is lying in bed, in no acute distress, however states that she is getting more sore from moving carefully due to her hip. Says that her fibromyalgia is worse now. Also says that her irritable bowel syndrome got worse and she had 3 looser bowel movements. Checked with nursing staff she had soft stools but no watery diarrhea. Patient denies any watery diarrhea. Review of Systems Review of Systems: All systems reviewed & are unremarkable except as noted in HPI & below Constitutional: no fever and no chills Respiratory: no cough and no dyspnea Cardiovascular: no chest pain and no palpitations Gastrointestinal: no abdominal pain, no nausea and no vomiting Physical Exam Physical Exam: Constitutional: + thin female sitting up in bed, in no acute distress Eyes: PERRL, conjunctivae normal, anicteric sclerae EOM intact bilaterally ENMT: external ear and nose normal, oropharynx normal Neck: normal visual inspection Respiratory: normal respiratory effort, lungs clear to auscultation, no wheezing, rhonchi, crackles Cardiovascular: Rate/Rhythm: regular rate Gastrointestinal (Abdomen): normal bowel sounds, soft, nontender, nondistended Musculoskeletal: Head/Neck/Chest: normocephalic and head atraumatic, lower extremities well-perfused, no sensory loss, moves extremities spontaneously, mild pain on palpation of her left hip Neurologic: PERRL, EOMI, accommodation nl, no face palsy, no dysarthria Psychiatric: Orientation: alert and cooperative, speech somewhat pressured, and affect somewhat anxious Results & Data Results & Data ([facility]) Vital Signs (Past 12 Hours) Vital Signs Temp Pulse Resp BP Pulse Ox 12/26/19 04:50 36.7 C 65 20 152/88 H 100 12/25/19 23:13 36.5 C 66 18 129/85 98 12/25/19 20:07 36.6 C 89 18 133/85 97 Laboratory Results 12/26/19 12/26/19 Range/Units 08:37 08:37 WBC 7.20 (4.8-10.8) K/uL RBC 4.32 (4.2-5.4) M/uL Hgb 13.6 (12.0-16.0) g/dL Hct 40.0 (37-47) % MCV 92.6 (80-100) fL MCH 31.5 (25-34) pg MCHC 34.0 (32-36) g/dL RDW Std Deviation 43.5 (36.4-46.3) fL RDW Coeff of Irving 12.8 (11.5-14.5) % Plt Count 269 (130-400) K/uL MPV 8.5 (7.4-10.4) fL Sodium 136 (136-145) mmol/L Potassium 3.7 (3.5-5.1) mmol/L Chloride 105 (98-107) mmol/L Carbon Dioxide 26 (21-32) mmol/L Anion Gap 6.0 (3-11) BUN 21 H (7-18) mg/dl Creatinine 0.92 (0.6-1.2) mg/dl Est Cr Clr Drug Dosing 54.6 ml/min Est GFR ( Amer) 75.7 Est GFR (Non-Af Amer) 65.3 BUN/Creatinine Ratio 23.2 H (10-20) Glucose 141 H (70-99) mg/dl Calcium 10.0 (8.5-10.1) mg/dl Phosphorus 3.1 (2.5-4.9) mg/dl Magnesium 2.0 (1.8-2.4) mg/dl Medications Administered Current Inpatient Medications Acetaminophen (Tylenol) 650 mg PO Q6H IVAN Stop: 01/22/20 17:59 Last Admin: 12/26/19 11:28 Dose: 650 mg Documented by: Aspirin (Ecotrin Ectab) 81 mg PO QAM IVAN Stop: 01/25/20 08:59 Last Admin: 12/26/19 08:08 Dose: 81 mg Documented by: Calcitriol (Rocaltrol) 0.25 mcg PO DAILY [facility] Stop: 01/23/20 08:59 Last Admin: 12/26/19 08:10 Dose: 0.25 mcg Documented by: Diclofenac Sodium (Voltaren 1% Top) 2 gm EXT TID PRN PRN Reason: shoulder aches Stop: 01/24/20 20:59 Last Admin: 12/26/19 13:10 Dose: 2 gm Documented by: Duloxetine [facility] (Cymbalta) [facility] [place]: 01/23/20 08:59 Last Admin: 12/26/19 08:10 Dose: 40 mg Documented by: Ferrous Sulfate (Feosol) 325 mg PO BIDM [facility] Stop: 01/22/20 16:59 Last Admin: 12/26/19 08:11 Dose: 325 mg Documented by: Gabapentin (Neurontin) 300 mg PO TID [facility] Stop: 01/22/20 20:59 Last Admin: 12/26/19 14:22 Dose: 300 mg Documented by: Hydroxyzine HCl (Vistaril) 25 mg PO Q4H PRN PRN Reason: Anxiety Stop: 01/22/20 16:59 Hydroxyzine HCl (Vistaril) 50 mg PO HSZ [facility] Stop: 01/22/20 21:59 Last Admin: 12/25/19 21:33 Dose: 50 mg Documented by: Lamotrigine (Lamictal) 25 mg PO QAM [facility] Stop: 01/23/20 08:59 Last Admin: 12/26/19 08:10 Dose: 25 mg Documented by: Levothyroxine Sodium (Synthroid) 50 mcg PO DAILYBB [facility] Stop: 01/23/20 06:29 Last Admin: 12/26/19 05:53 Dose: 50 mcg Documented by: Lidocaine (Lidoderm 5%) [address] [facility] Stop: 01/23/20 18:14 Last Admin: 12/26/19 08:11 Dose: 1 patch Documented by: Lidocaine (Lidoderm 5%) [address] [facility] Stop: 01/25/20 13:59 Last Admin: 12/26/19 14:20 Dose: 1 patch Documented by: Lidocaine (Lidoderm 5%) [address] [facility] Stop: 01/25/20 13:59 Last Admin: 12/26/19 14:22 Dose: 1 patch Documented by: Loperamide HCl (Imodium) 2 mg PO Q8H PRN PRN Reason: Loose Stool Stop: 01/25/20 13:11 Losartan Potassium (Cozaar) 50 mg PO QAM [facility] Stop: 01/25/20 08:59 Last Admin: 12/26/19 08:08 Dose: 50 mg Documented by: Menthol (Nice) 1 tamar BUCCAL Q4H PRN PRN Reason: Sore Throat Stop: 01/25/20 13:05 Metoprolol Tartrate (Lopressor) 6.25 mg PO BID [facility] Stop: 01/22/20 20:59 Last Admin: 12/26/19 08:08 Dose: 6.25 mg Documented by: Miscellaneous (Remove Lidoderm Patch) 1 ea N/A DAILY@2099 [facility] Stop: 01/23/20 20:59 Last Admin: 12/25/19 20:22 Dose: 1 ea Documented by: Miscellaneous (Remove Lidoderm Patch) 1 ea N/A DAILY@2099 [facility] Stop: 01/25/20 20:59 Miscellaneous (Remove Lidoderm Patch) 1 ea N/A DAILY@2099 [facility] Stop: 01/25/20 20:59 Pantoprazole Sodium (Protonix) 40 mg PO QAM [facility] Stop: 01/23/20 08:59 Last Admin: 12/26/19 08:11 Dose: 40 mg Documented by: Potassium Chloride (Klor-Con M20) 20 meq PO QAM [facility] Stop: 01/25/20 08:59 Last Admin: 12/26/19 08:10 Dose: 20 meq Documented by: Prednisone (Prednisone) 5 mg PO DAILY [facility] Stop: 01/23/20 08:59 Last Admin: 12/26/19 08:09 Dose: 5 mg Documented by:
[2019-12-26] MEDS: METOPROLOL TARTRATE 25 MG TAB PO SCH ×2 (08:08→20:36)
[2019-12-26] MEDS: ASPIRIN 81 MG ECTAB PO SCH (08:08)
[2019-12-26] MEDS: LOSARTAN POTASSIUM 50 MG TAB PO SCH (08:08)
[2019-12-26] MEDS: predniSONE 5 MG TAB PO SCH (08:09)
[2019-12-26] MEDS: GABAPENTIN 300 MG CAP PO SCH ×3 (08:10→20:36)
[2019-12-26] MEDS: DULOXETINE HCL 20 MG CAP PO SCH (08:10)
[2019-12-26] MEDS: CALCITRIOL 0.25 MCG CAPSULE PO SCH (08:10)
[2019-12-26] MEDS: POTASSIUM CHLORIDE 20 MEQ TABCR PO SCH (08:10)
[2019-12-26] MEDS: lamoTRIgine 25 MG TAB PO SCH (08:10)
[2019-12-26] MEDS: PANTOprazole 40 MG TAB PO SCH (08:11)
[2019-12-26] MEDS: FERROUS SULFATE 325 MG TAB PO SCH ×2 (08:11→17:35)
[2019-12-26] MEDS: LIDOCAINE 5% 1 PATCH TD SCH ×3 (08:11→14:22)
[2019-12-26 08:59] LABS: Hemoglobin 13.6 g/dL (12.0-16.0); Mean Corpuscular Hemoglobin 31.5 pg (25-34); Mean Corpuscular Volume 92.6 fL (80-100); Mean Platelet Volume 8.5 fL (7.4-10.4); Platelet Count 269 K/uL (130-400); RDW Coefficient of Variation 12.8 % (11.5-14.5); RDW Standard Deviation 43.5 fL (36.4-46.3); Red Blood Count 4.32 M/uL (4.2-5.4)
[2019-12-26 09:27] LABS: BUN Creatinine Ratio 23.2 (10-20); Creatinine Clr Calc Pharmacy 54.6 ml/min; Est GFR (African American) 75.7; Est GFR (Non-African American) 65.3; Phosphorus 3.1 mg/dl (2.5-4.9); Potassium 3.7 mmol/L (3.5-5.1)
[2019-12-26] MEDS ORDERED: COUGH DROP (SUGAR FREE) LOZ 24 LOZ/1 BOX BUCCAL PRN (13:06)
[2019-12-26] MEDS: DICLOFENAC SOD 1% GEL 100 GM TUBE EXT PRN ×2 (13:10→23:49)
[2019-12-27] MEDS ORDERED: SODIUM CHLORIDE 0.65% NA SOLN 45 ML (OCEAN) PRN (02:31)
[2019-12-27] MEDS ORDERED: FLUTICASONE PROPIONATE NA SPR 16 GM BTL PRN (02:34)
[2019-12-27] MEDS: TIZANIDINE HCL 4 MG TABLET PO PRN ×3 (03:14→21:44)
[2019-12-27] MEDS: LEVOTHYROXINE SODIUM 50 MCG TABLET PO SCH (05:26)
[2019-12-27] MEDS: ACETAMINOPHEN 325 MG TAB PO SCH ×2 (05:26→12:01)
[2019-12-27 07:18] LABS: Hemoglobin 12.2 g/dL (12.0-16.0); Mean Corpuscular Hemoglobin 31.4 pg (25-34); Mean Corpuscular Hgb Conc 33.9 g/dL (32-36); Mean Corpuscular Volume 92.5 fL (80-100); Mean Platelet Volume 8.6 fL (7.4-10.4); Platelet Count 269 K/uL (130-400); RDW Coefficient of Variation 12.9 % (11.5-14.5); RDW Standard Deviation 43.4 fL (36.4-46.3); Red Blood Count 3.89 M/uL (4.2-5.4); White Blood Count 7.66 K/uL (4.8-10.8)
[2019-12-27 07:49] LABS: BUN Creatinine Ratio 29.2 (10-20); Calcium 9.1 mg/dl (8.5-10.1); Creatinine Clr Calc Pharmacy 51.4 ml/min; Est GFR (African American) 77.8; Est GFR (Non-African American) 67.1; Potassium 3.9 mmol/L (3.5-5.1)
[2019-12-27] MEDS: DULOXETINE HCL 20 MG CAP PO SCH (07:57)
[2019-12-27] MEDS: LOSARTAN POTASSIUM 50 MG TAB PO SCH (07:57)
[2019-12-27] MEDS: FERROUS SULFATE 325 MG TAB PO SCH ×2 (07:57→16:29)
[2019-12-27] MEDS: POTASSIUM CHLORIDE 20 MEQ TABCR PO SCH (07:58)
[2019-12-27] MEDS: ASPIRIN 81 MG ECTAB PO SCH (07:58)
[2019-12-27] MEDS: lamoTRIgine 25 MG TAB PO SCH (07:58)
[2019-12-27] MEDS: LIDOCAINE 5% 1 PATCH TD SCH ×3 (07:58→07:59)
[2019-12-27] MEDS: METOPROLOL TARTRATE 25 MG TAB PO SCH ×2 (07:59→21:45)
[2019-12-27] MEDS: PANTOprazole 40 MG TAB PO SCH (08:01)
[2019-12-27] MEDS: predniSONE 5 MG TAB PO SCH (08:01)
[2019-12-27] MEDS: GABAPENTIN 300 MG CAP PO SCH ×3 (08:01→21:45)
[2019-12-27] MEDS: CALCITRIOL 0.25 MCG CAPSULE PO SCH (08:01)
[2019-12-27] MEDS: DICLOFENAC SOD 1% GEL 100 GM TUBE EXT PRN ×2 (10:36→21:45)
--- NOTE | 2019-12-27 13:33 | Hospitalist Progress Note ---
Date of Service December 27, 2019 Assessment & Plan (1) Hip dislocation, left: Bipolar disorder (Recent encephalopathy secondary to tramadol overdose) -originally patient presented to the hospital on 12/06/2019 at [facility] after over dose on tramadol and was found to have suicide note from home, patient then was under 302 and discharged on 12/20/2019 to behavioral health unit in same hospital at [facility] and during there she experienced acute left hip dislocation and returned to hospitalist medical service on 12/23/2019 -previous hospitalist had discussed with psychiatry who suggested that patient did not need further inpatient psychiatric hospitalization after this current return to hospitalist service -There is an outpatient appointment 01/24/2020 10:30 AM Provider Karine Young DO Department Psychiatry, [facility] -Continue Cymbalta, lamotrigine Acute left hip dislocation History of left hip arthroplasty -Evaluated by orthopedic service, now s/p closed reduction of left total hip arthroplasty dislocation by Dr. Doan (12/24/19) -continue pain control as Tylenol 325 mg every 6 hours, and lidocaine patch for left hip, patient feels improvement of muscle spasms from prn Tizanidine (Zanaflex) 2 mg TID prn -patient had been on telemetry because of episode of 4 beat run of V. tach last week but otherwise stable and patient's heart rates have been stable with metoprolol 6.25 mg twice a day -Ortho recommends low-dose aspirin and SCDs for DVT prophylaxis, follow-up with Dr. Doan in 2 weeks. -Ortho provided discharge instructions/DULCE MARIA precautions to the patient - PT OT have been following the patient while in the hospital and recommending physical therapy rehabilitation disposition, case management had been applying for [facility] but patient's insurance requested a peer to peer telephone conversation Osteoarthritis, on chronic prednisone -Continue usual prednisone 5 mg p.o. daily Hypertension -Continue losartan at 50 mg every morning Hypothyroidism -Continue usual levothyroxine DVT prophylaxis: SCDs Admission and Anticipated Discharge Date Admission Date: December 23, 2019 Subjective Patient seen and examined. She had meal at bedside. She is pleasant. She is not in acute distress and her left hip not bothering her. She does report of poor sleep at night and reported that Zanaflex helped her with the muscle cramps of her back although she attributes symptoms to "Fibromyalgia" breathing on room air. no acute shortness of breath. she does not report of urination or bowel problems Review of Systems Review of Systems: All systems reviewed & are unremarkable except as noted in Subjective Physical Exam Constitutional: WD/WN, vitals as above Eyes: PERRL, conjunctivae normal, anicteric sclerae EOM intact bilaterally ENMT: external ear and nose normal, oropharynx normal Neck: trachea midline, no thyromegaly Respiratory: normal respiratory effort, lungs clear to auscultation Cardiovascular: Rate/Rhythm: regular rate and regular rhythm Gastrointestinal (Abdomen): normal bowel sounds, soft, nontender, no hepatosplenomegaly Musculoskeletal: Head/Neck/Chest: normocephalic Neurologic: PERRL, EOMI, accommodation nl, no face palsy, no dysarthria CN's II-XI intact bilaterally Psychiatric: Orientation: alert and cooperative Results & Data Results & Data ([facility]) Vital Signs (Past 12 Hours) Vital Signs Temp Pulse Pulse Resp BP Pulse Ox 12/27/19 11:42 37 C 86 16 116/77 99 12/27/19 07:32 36.8 C 76 20 135/82 97 12/27/19 07:12 72 12/27/19 03:00 36.6 C 65 19 148/91 H 97
--- NOTE | 2019-12-27 14:26 | Communication Note ---
Date of Service: December 27, 2019 Case reviewed with liaison nurse, and interim record reviewed. Patient known to me from recent hospitalization on our unit, and reviewed Dr. Turner's psychiatric consultation after she was transferred to the floor. She had been denying suicidal thoughts while on the inpatient unit here and we were preparing for discharge at the time of transfer to the hospitalist service. Liaison nurses have been assessing her daily, and she continues to deny suicidal ideation. She has been referred for outpatient treatment: Psychiatrist Dr. Chan at [facility] on 01/24/2020, and therapy with Carmen Gerber (to be scheduled at discharge). She has been taking her psychotropic medications as prescribed, and will need prescriptions for them at discharge. She remains psychiatrically stable for discharge.
[2019-12-27] MEDS: ACETAMINOPHEN 325 MG TAB PO PRN (16:29)
[2019-12-28] MEDS: LEVOTHYROXINE SODIUM 50 MCG TABLET PO SCH (05:02)
[2019-12-28] MEDS: ACETAMINOPHEN 325 MG TAB PO PRN ×3 (05:39→23:54)
[2019-12-28] MEDS: TIZANIDINE HCL 4 MG TABLET PO PRN ×2 (05:39→17:58)
[2019-12-28] MEDS: LOSARTAN POTASSIUM 50 MG TAB PO SCH (08:20)
[2019-12-28] MEDS: FERROUS SULFATE 325 MG TAB PO SCH ×2 (08:20→16:25)
[2019-12-28] MEDS: POTASSIUM CHLORIDE 20 MEQ TABCR PO SCH (08:21)
[2019-12-28] MEDS: lamoTRIgine 25 MG TAB PO SCH (08:21)
[2019-12-28] MEDS: METOPROLOL TARTRATE 25 MG TAB PO SCH ×2 (08:21→20:35)
[2019-12-28] MEDS: ASPIRIN 81 MG ECTAB PO SCH (08:21)
[2019-12-28] MEDS: DULOXETINE HCL 20 MG CAP PO SCH (08:21)
[2019-12-28] MEDS: GABAPENTIN 300 MG CAP PO SCH ×3 (08:22→20:36)
[2019-12-28] MEDS: predniSONE 5 MG TAB PO SCH (08:22)
[2019-12-28] MEDS: PANTOprazole 40 MG TAB PO SCH (08:22)
[2019-12-28] MEDS: CALCITRIOL 0.25 MCG CAPSULE PO SCH (08:23)
[2019-12-28] MEDS: LIDOCAINE 5% 1 PATCH TD SCH ×2 (08:23→10:51)
--- NOTE | 2019-12-28 14:48 | Hospitalist Progress Note ---
Date of Service December 28, 2019 Assessment & Plan (1) Hip dislocation, left: Bipolar disorder (Recent encephalopathy secondary to tramadol overdose) -originally patient presented to the hospital on 12/06/2019 at [facility] after over dose on tramadol and was found to have suicide note from home, patient then was under 302 and discharged on 12/20/2019 to behavioral health unit in same hospital at [facility] and during there she experienced acute left hip dislocation and returned to hospitalist medical service on 12/23/2019 -previous hospitalist had discussed with psychiatry who suggested that patient did not need further inpatient psychiatric hospitalization after this current return to hospitalist service. There is psychiatry -There is an outpatient appointment 01/24/2020 10:30 AM Provider Karine Young DO Department Psychiatry, [facility] -Continue Cymbalta, lamotrigine Acute left hip dislocation History of left hip arthroplasty -Evaluated by orthopedic service, now s/p closed reduction of left total hip arthroplasty dislocation by Dr. Doan (12/24/19) -continue pain control as Tylenol 325 mg every 6 hours, and lidocaine patch for left hip, patient feels improvement of muscle spasms from prn Tizanidine (Zanaflex) 2 mg TID prn -patient had been on telemetry because of episode of 4 beat run of V. tach last week but otherwise stable and patient's heart rates have been stable with metoprolol 6.25 mg twice a day -Ortho recommends low-dose aspirin and SCDs for DVT prophylaxis, follow-up with Dr. Doan in 2 weeks. -Ortho provided discharge instructions/DULCE MARIA precautions to the patient - PT OT have been following the patient while in the hospital and recommending physical therapy rehabilitation disposition, case management had been applying for [facility] but patient's insurance requested a peer to peer telephone conversation Osteoarthritis, on chronic prednisone -Continue usual prednisone 5 mg p.o. daily Hypertension -Continue losartan at 50 mg every morning Hypothyroidism -Continue usual levothyroxine DVT prophylaxis: SCDs Admission and Anticipated Discharge Date Admission Date: December 23, 2019 Subjective Patient is lying in bed, in no acute distress. She was previously in inpatient psychiatry unit. She however dislocated her left hip, and so needed orthopedic consultation and procedure. She underwent closed reduction with Dr. Doan, on December 23 and tolerated procedure well. It was discussed with Dr. Doan that after the procedure patient was safe to go back to inpatient psychiatry unit. I discussed this with psychiatry liaison, however was told that currently there is no inpatient psychiatry room available and also that they planned to discharge the patient anyhow. They feel that patient is safe, denies any suicidal ideation, and does not need to be per psychiatry on their unit. All the outpatient follow-ups are set up for the patient with psychiatry. Patient denies any fevers, chills, chest pain, shortness of breath, abdominal pain, nausea or vomiting. Patient was seen by physical therapist, recommended inpatient rehab - patient is excited to possibly go to [facility] as she was there previously and had very good experience there. Currently patient is lying in bed, in no acute distress, however states that she is getting more sore from moving carefully due to her hip. Says that her fibromyalgia is worse now. Also says that her irritable bowel syndrome got worse and she had 3 looser bowel movements. Checked with nursing staff she had soft stools but no watery diarrhea. Patient denies any watery diarrhea. Review of Systems Review of Systems: All systems reviewed & are unremarkable except as noted in Subjective Physical Exam Constitutional: WD/WN, vitals as above Eyes: PERRL, conjunctivae normal, anicteric sclerae EOM intact bilaterally ENMT: external ear and nose normal, oropharynx normal Neck: trachea midline, no thyromegaly Respiratory: normal respiratory effort, lungs clear to auscultation Cardiovascular: Rate/Rhythm: regular rate and regular rhythm Gastrointestinal (Abdomen): normal bowel sounds, soft, nontender, no hepatosplenomegaly Musculoskeletal: Head/Neck/Chest: normocephalic Neurologic: PERRL, EOMI, accommodation nl, no face palsy, no dysarthria CN's II-XI intact bilaterally Psychiatric: Orientation: alert and cooperative Results & Data Results & Data ([facility]) Vital Signs (Past 12 Hours) Vital Signs Temp Pulse Pulse Resp BP BP Pulse Ox 12/28/19 11:32 37.2 C 77 16 143/87 H 94 12/28/19 07:24 37 C 90 18 120/76 92 12/28/19 07:14 67 12/28/19 05:29 36.3 C L 66 18 133/94 95
--- NOTE | 2019-12-28 16:00 | Hospitalist Progress Note ---
Date of Service December 28, 2019 Assessment & Plan (1) Hip dislocation, left: Bipolar disorder (Recent encephalopathy secondary to tramadol overdose) -originally patient presented to the hospital on 12/06/2019 at [facility] after over dose on tramadol and was found to have suicide note from home, patient then was under 302 and discharged on 12/20/2019 to behavioral health unit in same hospital at [facility] and during there she experienced acute left hip dislocation and returned to hospitalist medical service on 12/23/2019 -previous hospitalist had discussed with psychiatry who suggested that patient did not need further inpatient psychiatric hospitalization after this current return to hospitalist service. There is psychiatry note clearing her from requiring further inpatient psychiatry evaluation. -There is an outpatient appointment 01/24/2020 10:30 AM Provider Karine Young DO Department Psychiatry, [facility]. [facility] also asked to give her alternative options if patient has problems with [facility] affiliated provider -Continue Cymbalta, lamotrigine Acute left hip dislocation History of left hip arthroplasty -Evaluated by orthopedic service, now s/p closed reduction of left total hip arthroplasty dislocation by Dr. Doan (12/24/19) -continue pain control as Tylenol 325 mg every 6 hours, and lidocaine patch for left hip, patient feels improvement of muscle spasms from prn Tizanidine (Zanaflex) 2 mg TID prn -patient had been on telemetry because of episode of 4 beat run of V. tach last week but otherwise stable and patient's heart rates have been stable with metoprolol 6.25 mg twice a day -Ortho recommends low-dose aspirin and SCDs for DVT prophylaxis, follow-up with Dr. Doan in 2 weeks. -Ortho provided discharge instructions/DULCE MARIA precautions to the patient - PT OT have been following the patient while in the hospital and recommending physical therapy rehabilitation disposition, case management had been applying for [facility] [employer] but patient's insurance requested a peer to peer telephone conversation and then denied based on recent improvements of her therapy treatment. sales and marketing manager discussed with patient on 12/28/2019 and patient plans to appear the insurance decision. Patient will continue to be inpatient at this time and work with PT/OT Osteoarthritis, on chronic prednisone -Continue usual prednisone 5 mg p.o. daily Hypertension -Continue losartan at 50 mg every morning Hypothyroidism -Continue usual levothyroxine DVT prophylaxis: SCDs Admission and Anticipated Discharge Date Admission Date: December 23, 2019 Subjective Patient examined not long after returning from PT therapy and appears to be making improvements with her ambulation. Patient reports that she does not feel back to baseline mobility and she plans to appeal denial by insurance company for [facility] physical therapy. She reports that she needs more assistance so that she can eventually be more functional when she returns home. no chest pain, no shortness of breath, no abdomen pain. no nausea. no vomiting. no dizziness. no headache Review of Systems Review of Systems: All systems reviewed & are unremarkable except as noted in Subjective Physical Exam Constitutional: cooperative Eyes: PERRL, conjunctivae normal, anicteric sclerae EOM intact bilaterally ENMT: external ear and nose normal, oropharynx normal Neck: normal visual inspection Respiratory: normal respiratory effort, lungs clear to auscultation Cardiovascular: Rate/Rhythm: regular rate Gastrointestinal (Abdomen): normal bowel sounds, soft, nontender, no hepatosplenomegaly Musculoskeletal: Head/Neck/Chest: normocephalic and head atraumatic Neurologic: PERRL, EOMI, accommodation nl, no face palsy, no dysarthria CN's II-XI intact bilaterally Psychiatric: Orientation: alert, oriented to person, oriented to place, oriented to time and cooperative Results & Data Results & Data ([facility]) Vital Signs (Past 12 Hours) Vital Signs Temp Pulse Pulse Resp BP BP Pulse Ox 12/28/19 15:49 37.1 C 89 22 174/113 H 97 12/28/19 11:32 37.2 C 77 16 143/87 H 94 12/28/19 07:24 37 C 90 18 120/76 92 12/28/19 07:14 67 12/28/19 05:29 36.3 C L 66 18 133/94 95
[2019-12-28] MEDS: DICLOFENAC SOD 1% GEL 100 GM TUBE EXT PRN (22:30)
[2019-12-28] MEDS: LOPERAMIDE HCL 2 MG CAP PO PRN (23:55)
[2019-12-29] MEDS: LEVOTHYROXINE SODIUM 50 MCG TABLET PO SCH (06:43)
[2019-12-29] MEDS: FERROUS SULFATE 325 MG TAB PO SCH ×2 (08:19→16:50)
[2019-12-29] MEDS: POTASSIUM CHLORIDE 20 MEQ TABCR PO SCH (08:20)
[2019-12-29] MEDS: DULOXETINE HCL 20 MG CAP PO SCH (08:20)
[2019-12-29] MEDS: lamoTRIgine 25 MG TAB PO SCH (08:20)
[2019-12-29] MEDS: LOSARTAN POTASSIUM 50 MG TAB PO SCH (08:20)
[2019-12-29] MEDS: ASPIRIN 81 MG ECTAB PO SCH (08:20)
[2019-12-29] MEDS: METOPROLOL TARTRATE 25 MG TAB PO SCH ×2 (08:21→20:31)
[2019-12-29] MEDS: LIDOCAINE 5% 1 PATCH TD SCH (08:21)
[2019-12-29] MEDS: GABAPENTIN 300 MG CAP PO SCH ×3 (08:22→20:30)
[2019-12-29] MEDS: predniSONE 5 MG TAB PO SCH (08:23)
[2019-12-29] MEDS: ACETAMINOPHEN 325 MG TAB PO PRN ×2 (08:23→16:00)
[2019-12-29] MEDS: PANTOprazole 40 MG TAB PO SCH (08:23)
[2019-12-29] MEDS: CALCITRIOL 0.25 MCG CAPSULE PO SCH (08:23)
[2019-12-29] MEDS: TIZANIDINE HCL 4 MG TABLET PO PRN ×3 (08:24→22:04)
[2019-12-29] MEDS: DICLOFENAC SOD 1% GEL 100 GM TUBE EXT PRN ×2 (08:25→16:00)
[2019-12-29] MEDS ORDERED: LIDOCAINE 5% 1 PATCH TD ONE (12:00)
[2019-12-29] MEDS ORDERED: MELOXICAM 7.5 MG TAB PO PRN (12:14)
--- NOTE | 2019-12-29 12:37 | Hospitalist Progress Note ---
Date of Service December 29, 2019 Assessment & Plan (1) Hip dislocation, left: Bipolar disorder (Recent encephalopathy secondary to tramadol overdose) -originally patient presented to the hospital on 12/06/2019 at [facility] after over dose on tramadol and was found to have suicide note from home, patient then was under 302 and discharged on 12/20/2019 to behavioral health unit in same hospital at [facility] and during there she experienced acute left hip dislocation and returned to hospitalist medical service on 12/23/2019 -previous hospitalist had discussed with psychiatry who suggested that patient did not need further inpatient psychiatric hospitalization after this current return to hospitalist service. There is psychiatry note clearing her from requiring further inpatient psychiatry evaluation. -There is an outpatient appointment 01/24/2020 10:30 AM Provider Karine Young DO Department Psychiatry, [facility]. [facility] also asked to give her alternative options if patient has problems with [facility] provider -Continue Cymbalta, lamotrigine Acute left hip dislocation History of left hip arthroplasty -Evaluated by orthopedic service, now s/p closed reduction of left total hip arthroplasty dislocation by Dr. Doan (12/24/19) -patient had been on telemetry because of episode of 4 beat run of V. tach last week but otherwise stable and patient's heart rates have been stable with metoprolol 6.25 mg twice a day -Ortho recommended low-dose aspirin and SCDs for DVT prophylaxis, follow-up with Dr. Doan in 2 weeks. -Ortho provided discharge instructions/DULCE MARIA precautions to the patient - PT OT have been following the patient while in the hospital and recommending physical therapy rehabilitation disposition, case management had been applying for [employer] but patient's insurance requested a peer to peer telephone conversation and then denied based on recent improvements of her therapy treatment. land development project manager discussed with patient on 12/28/2019 and patient plans to appear the insurance decision. Patient will continue to be inpatient at this time and work with PT/OT -pain medications as prn acetaminophen 650 mg q8 hours prn for pain of fever, meloxicam 15 mg prn daily for pain, continue prn Zanaflex, patient requesting 3 lidoderm patches a day Osteoarthritis, on chronic prednisone -Continue usual prednisone 5 mg p.o. daily Hypertension -Continue losartan at 50 mg every morning Hypothyroidism -Continue usual levothyroxine DVT prophylaxis: SCDs Admission and Anticipated Discharge Date Admission Date: December 23, 2019 Subjective left leg raise on the bed less than right lower extremity. but patient apparently able to do okay with ambulation with physical therapy. patient does have complaint of more generalized musculoskeletal pain because of shifting the weight of her body while favoring the left leg. we had long discussion about pain management no shortness of breath. no nausea. no vomiting. eating the food Review of Systems Review of Systems: All systems reviewed & are unremarkable except as noted in Subjective Physical Exam Constitutional: cooperative Eyes: PERRL, conjunctivae normal, anicteric sclerae EOM intact bilaterally ENMT: external ear and nose normal, oropharynx normal Neck: normal visual inspection Respiratory: normal respiratory effort, lungs clear to auscultation Cardiovascular: Rate/Rhythm: regular rate Gastrointestinal (Abdomen): normal bowel sounds, soft, nontender, no hepatosplenomegaly Musculoskeletal: Head/Neck/Chest: normocephalic and head atraumatic left leg raise on the bed less than right lower extremity Neurologic: PERRL, EOMI, accommodation nl, no face palsy, no dysarthria CN's II-XI intact bilaterally Psychiatric: Orientation: alert, oriented to person, oriented to place, oriented to time and cooperative Results & Data Results & Data ([facility]) Vital Signs (Past 12 Hours) Vital Signs Temp Pulse Pulse Resp BP Pulse Ox 12/29/19 11:29 36.3 C L 70 20 115/79 96 12/29/19 07:30 60 12/29/19 07:25 36.8 C 79 18 129/85 99 12/29/19 04:47 68
[2019-12-29] MEDS: HEPARIN SOD 5,000 UNIT/0.5 ML VIAL SQ SCH (20:30)
[2019-12-30] MEDS: ACETAMINOPHEN 325 MG TAB PO PRN ×2 (04:21→19:21)
[2019-12-30] MEDS: LEVOTHYROXINE SODIUM 50 MCG TABLET PO SCH (04:24)
[2019-12-30] MEDS ORDERED: KETOROLAC TROMETHAMINE 15 MG/ML VIAL IV ONE (05:57)
[2019-12-30 08:13] LABS: Basophils # (auto) 0.09 K/uL (0-0.2); Basophils % (auto) 1.2 %; Eosinophils # (auto) 0.13 K/uL (0-0.5); Eosinophils % (auto) 1.7 %; Hematocrit (blood only) 37.3 % (37-47); Hemoglobin 12.5 g/dL (12.0-16.0); Immature Granulocytes # (auto) 0.17 K/uL (0.00-0.02); Immature Granulocytes % (auto) 2.2 %; Lymphocytes # (auto) 2.21 K/uL (1.2-3.4); Lymphocytes % (auto) 28.6 %; Mean Corpuscular Hemoglobin 31.6 pg (25-34); Mean Corpuscular Hgb Conc 33.5 g/dL (32-36); Mean Corpuscular Volume 94.2 fL (80-100); Mean Platelet Volume 8.5 fL (7.4-10.4); Monocytes # (auto) 0.62 K/uL (0.11-0.59); Neutrophils % (auto) 58.3 %; Platelet Count 326 K/uL (130-400); RDW Coefficient of Variation 13.3 % (11.5-14.5); RDW Standard Deviation 45.9 fL (36.4-46.3); Red Blood Count 3.96 M/uL (4.2-5.4); White Blood Count 7.72 K/uL (4.8-10.8)
[2019-12-30 08:39] LABS: Albumin Level 2.9 gm/dl (3.4-5.0); Calcium 9.3 mg/dl (8.5-10.1); Creatinine Clr Calc Pharmacy 59.2 ml/min; Est GFR (African American) 74.7; Est GFR (Non-African American) 64.5; Potassium 4.1 mmol/L (3.5-5.1)
[2019-12-30 08:42] LABS: Albumin Globulin Ratio 0.9 (0.9-2); Bilirubin,Total 0.3 mg/dl (0.2-1); Globulin 3.2 gm/dl (2.5-4.0); Total Protein 6.1 gm/dl (6.4-8.2)
[2019-12-30] MEDS: LIDOCAINE 5% 1 PATCH TD SCH (08:55)
[2019-12-30] MEDS: METOPROLOL TARTRATE 25 MG TAB PO SCH ×2 (08:55→20:21)
[2019-12-30] MEDS: lamoTRIgine 25 MG TAB PO SCH (08:56)
[2019-12-30] MEDS: PANTOprazole 40 MG TAB PO SCH (08:57)
[2019-12-30] MEDS: ASPIRIN 81 MG ECTAB PO SCH (08:57)
[2019-12-30] MEDS: LOSARTAN POTASSIUM 50 MG TAB PO SCH (08:57)
[2019-12-30] MEDS: POTASSIUM CHLORIDE 20 MEQ TABCR PO SCH (08:57)
[2019-12-30] MEDS: GABAPENTIN 300 MG CAP PO SCH ×2 (08:57→13:12)
[2019-12-30] MEDS: DULOXETINE HCL 20 MG CAP PO SCH (08:58)
[2019-12-30] MEDS: FERROUS SULFATE 325 MG TAB PO SCH ×2 (08:58→16:43)
[2019-12-30] MEDS: CALCITRIOL 0.25 MCG CAPSULE PO SCH (08:59)
[2019-12-30] MEDS: predniSONE 5 MG TAB PO SCH (08:59)
[2019-12-30] MEDS: HEPARIN SOD 5,000 UNIT/0.5 ML VIAL SQ SCH ×2 (08:59→20:20)
[2019-12-30] MEDS ORDERED: ACETAMINOPHEN 325 MG TAB PO STA (11:58)
--- NOTE | 2019-12-30 12:10 | Hospitalist Progress Note ---
Date of Service December 30, 2019 Assessment & Plan (1) Hip dislocation, left: Bipolar disorder (Recent encephalopathy secondary to tramadol overdose) -originally patient presented to the hospital on 12/06/2019 at [facility] after over dose on tramadol and was found to have suicide note from home, patient then was under 302 and discharged on 12/20/2019 to behavioral health unit in same hospital at [facility] and during there she experienced acute left hip dislocation and returned to hospitalist medical service on 12/23/2019 -previous hospitalist had discussed with psychiatry who suggested that patient did not need further inpatient psychiatric hospitalization after this current return to hospitalist service. There is psychiatry note clearing her from requiring further inpatient psychiatry evaluation. -There is an outpatient appointment 01/24/2020 10:30 AM Provider Karine Young DO Department Psychiatry, [facility]. [facility] also asked to give her alternative options if patient has problems with [facility] affiliated provider -Continue Cymbalta, lamotrigine Acute left hip dislocation Fibromyalgia -Evaluated by orthopedic service, now s/p closed reduction of left total hip arthroplasty dislocation by Dr. Doan (12/24/19) -patient had been on telemetry because of episode of 4 beat run of V. tach last week but otherwise stable and patient's heart rates have been stable with metoprolol 6.25 mg twice a day -Ortho recommended low-dose aspirin and SCDs for DVT prophylaxis, follow-up with Dr. Doan in 2 weeks. -Ortho provided discharge instructions/DULCE MARIA precautions to the patient - PT OT have been following the patient while in the hospital and recommending physical therapy rehabilitation disposition, case management had been applying for [employer] but patient's insurance requested a peer to peer telephone conversation and then denied based on recent improvements of her therapy treatment. manager career discussed with patient on 12/28/2019 and patient plans to appear the insurance decision. Patient will continue to be inpatient at this time and work with PT/OT -12/30/2019: as time is going by, patient continues to have more fixation on pain regimen and focus of the pain not at the left hip but in miscellaneous areas of body such as face, neck , and opposite right leg, fingers of left hand and insists that these pains are from fibromyalgia and that patient reports if not treated more then her body will not be 100 percent to perform the physical therapies needing for her to be well; hospitalist agrees to increase pain medications of prn acetaminophen 650 mg q8 hours prn for pain of fever to q6 hours , continue meloxicam 15 mg prn daily for pain, continue prn Zanaflex, 3 lidoderm patches a day, and increased the gabapentin from 300 mg TID to be 300 mg q12 hours with 400 mg gabapentin qhs. patient appears to not demand narcotic pain medications such as fentanyl or oxycodone which she reports she does not like but in our conversation she seems to hint that she would like morphine in short term. hospitalist reaffirmed not proceeding to narcotic pain medications for now and patient agreeable so far. Osteoarthritis, on chronic prednisone -Continue usual prednisone 5 mg p.o. daily Hypertension -Continue losartan at 50 mg every morning Hypothyroidism -Continue usual levothyroxine DVT prophylaxis: aspirin and heparin q12 hours Admission and Anticipated Discharge Date Admission Date: December 23, 2019 Subjective as time is going by, patient continues to have more fixation on pain regimen and focus of the pain not at the left hip but in miscellaneous areas of body such as face, neck , and opposite right leg, fingers of left hand and insists that these pains are from fibromyalgia and that patient reports if not treated more then her body will not be 100 percent to perform the physical therapies needing for her to be well; hospitalist agrees to increase pain medications of prn acetaminophen 650 mg q8 hours prn for pain of fever to q6 hours , continue meloxicam 15 mg prn daily for pain, continue prn Zanaflex, 3 lidoderm patches a day, and increased the gabapentin from 300 mg TID to be 300 mg q12 hours with 400 mg gabapentin qhs. patient appears to not demand narcotic pain medications such as fentanyl or oxycodone which she reports she does not like but in our conversation she seems to hint that she would like morphine in short term. hospitalist reaffirmed not proceeding to narcotic pain medications for now and patient agreeable so far. breathing on room air. no shortness of breath. patient plans on doing steps with physical therapy today Review of Systems Review of Systems: All systems reviewed & are unremarkable except as noted in Subjective Physical Exam Constitutional: cooperative Eyes: PERRL, conjunctivae normal, anicteric sclerae EOM intact bilaterally ENMT: external ear and nose normal, oropharynx normal Neck: normal visual inspection Respiratory: normal respiratory effort, lungs clear to auscultation Cardiovascular: Rate/Rhythm: regular rate Gastrointestinal (Abdomen): normal bowel sounds, soft, nontender, no hepatosplenomegaly Musculoskeletal: Head/Neck/Chest: normocephalic and head atraumatic Neurologic: PERRL, EOMI, accommodation nl, no face palsy, no dysarthria CN's II-XI intact bilaterally Psychiatric: Orientation: alert, oriented to person, oriented to place, oriented to time and cooperative Results & Data Results & Data ([facility]) Vital Signs (Past 12 Hours) Vital Signs Temp Pulse Pulse Resp BP Pulse Ox 12/30/19 08:00 36.7 C 79 18 129/86 97 12/30/19 05:15 36.6 C 75 19 123/82 97 12/30/19 04:43 79
[2019-12-30] MEDS: DICLOFENAC SOD 1% GEL 100 GM TUBE EXT PRN ×2 (12:18→18:17)
[2019-12-30] MEDS ORDERED: GABAPENTIN 300 MG CAP PO SCH (14:00)
[2019-12-30] MEDS: TIZANIDINE HCL 4 MG TABLET PO PRN (19:25)
[2019-12-30] MEDS: GABAPENTIN 400 MG CAP PO SCH (20:20)
[2019-12-31] MEDS: ACETAMINOPHEN 325 MG TAB PO PRN ×2 (03:44→21:36)
[2019-12-31] MEDS: TIZANIDINE HCL 4 MG TABLET PO PRN ×2 (04:09→23:01)
[2019-12-31] MEDS ORDERED: POLYETHYLENE (MIRALAX) 17 GM PACK PO PRN (04:34)
[2019-12-31] MEDS: LEVOTHYROXINE SODIUM 50 MCG TABLET PO SCH (06:03)
[2019-12-31] MEDS: DICLOFENAC SOD 1% GEL 100 GM TUBE EXT PRN (07:01)
[2019-12-31] MEDS: LIDOCAINE 5% 1 PATCH TD SCH (08:22)
[2019-12-31] MEDS: METOPROLOL TARTRATE 25 MG TAB PO SCH ×2 (08:23→21:35)
[2019-12-31] MEDS: FERROUS SULFATE 325 MG TAB PO SCH ×2 (08:23→15:50)
[2019-12-31] MEDS: PANTOprazole 40 MG TAB PO SCH (08:23)
[2019-12-31] MEDS: GABAPENTIN 300 MG CAP PO SCH ×2 (08:23→11:25)
[2019-12-31] MEDS: LOSARTAN POTASSIUM 50 MG TAB PO SCH (08:24)
[2019-12-31] MEDS: POTASSIUM CHLORIDE 20 MEQ TABCR PO SCH (08:25)
[2019-12-31] MEDS: DULOXETINE HCL 20 MG CAP PO SCH (08:25)
[2019-12-31] MEDS: CALCITRIOL 0.25 MCG CAPSULE PO SCH (08:25)
[2019-12-31] MEDS: lamoTRIgine 25 MG TAB PO SCH (08:25)
[2019-12-31] MEDS: predniSONE 5 MG TAB PO SCH (08:25)
[2019-12-31] MEDS: ASPIRIN 81 MG ECTAB PO SCH (08:26)
[2019-12-31] MEDS: HEPARIN SOD 5,000 UNIT/0.5 ML VIAL SQ SCH ×2 (08:27→21:38)
--- NOTE | 2019-12-31 12:14 | Hospitalist Progress Note ---
Date of Service December 31, 2019 Assessment & Plan (1) Hip dislocation, left: Bipolar disorder (Recent encephalopathy secondary to tramadol overdose) -originally patient presented to the hospital on 12/06/2019 at [facility] after over dose on tramadol and was found to have suicide note from home, patient then was under 302 and discharged on 12/20/2019 to behavioral health unit in same hospital at [facility] and during there she experienced acute left hip dislocation and returned to hospitalist medical service on 12/23/2019 -previous hospitalist had discussed with psychiatry who suggested that patient did not need further inpatient psychiatric hospitalization after this current return to hospitalist service. There is psychiatry note clearing her from requiring further inpatient psychiatry evaluation. -There is an outpatient appointment 01/24/2020 10:30 AM Provider Karine Young DO Department Psychiatry, [facility]. [facility] also asked to give her alternative options if patient has problems with [facility] affiliated provider -Continue Cymbalta, lamotrigine Acute left hip dislocation Fibromyalgia -Evaluated by orthopedic service, now s/p closed reduction of left total hip arthroplasty dislocation by Dr. Doan (12/24/19) -patient had been on telemetry because of episode of 4 beat run of V. tach last week but otherwise stable and patient's heart rates have been stable with metoprolol 6.25 mg twice a day -Ortho recommended low-dose aspirin and SCDs for DVT prophylaxis, follow-up with Dr. Doan in 2 weeks. -Ortho provided discharge instructions/DULCE MARIA precautions to the patient - PT OT have been following the patient while in the hospital and recommending physical therapy rehabilitation disposition, case management had been applying for [employer] but patient's insurance requested a peer to peer telephone conversation and then denied based on recent improvements of her therapy treatment. manager order discussed with patient on 12/28/2019 and patient plans to appear the insurance decision. Patient will continue to be inpatient at this time and work with PT/OT -12/30/2019: as time is going by, patient continues to have more fixation on pain regimen and focus of the pain not at the left hip but in miscellaneous areas of body such as face, neck , and opposite right leg, fingers of left hand and insists that these pains are from fibromyalgia and that patient reports if not treated more then her body will not be 100 percent to perform the physical therapies needing for her to be well; hospitalist agrees to increase pain medications of prn acetaminophen 650 mg q8 hours prn for pain of fever to q6 hours , continue meloxicam 15 mg prn daily for pain, continue prn Zanaflex, 3 lidoderm patches a day, and increased the gabapentin from 300 mg TID to be 300 mg q12 hours with 400 mg gabapentin qhs. patient appears to not demand narcotic pain medications such as fentanyl or oxycodone which she reports she does not like but in our conversation she seems to hint that she would like morphine in short term. hospitalist reaffirmed not proceeding to narcotic pain medications for now and patient agreeable so far. -12/31/2019: patient affirms she was able to make more progress with physical therapy and that she was able to some step exercises but then subsequently too painful for sleep. She then showed hospitalist a marijuana prescription card and reports that the she follows a Dr. Loki Ny for medical marijuana for pain but that she did not discuss this with primary care Dr. Osman or directly with other hospital doctors because she was concerned that this would have caused some social stigma. She insists that there must be some form of medical equivalency of pain control in place of medical marijuana that she cannot use while in the hospital. I discussed with patient that hospitalist will allow for short term low dose IV morphine prn for now to help patient with her physical rehabilitation while she is in the hospital and that the morphine will not be a [place] [facility] solution to pain control. Morphine is ordered as 0.5 mg every 6 hours as needed for severe pain and hospitalist discussed this plan with nursing staff. Osteoarthritis, on chronic prednisone -Continue usual prednisone 5 mg p.o. daily Hypertension -Continue losartan at 50 mg every morning Hypothyroidism -Continue usual levothyroxine DVT prophylaxis: aspirin and heparin q12 hours Admission and Anticipated Discharge Date Admission Date: December 23, 2019 Subjective patient affirms she was able to make more progress with physical therapy and that she was able to some step exercises but then subsequently too painful for sleep. She then showed hospitalist a marijuana prescription card and reports that the she follows a Dr. Loki Ny for medical marijuana for pain but that she did not discuss this with primary care Dr. Osman or directly with other hospital doctors because she was concerned that this would have caused some social stigma. She insists that there must be some form of medical equivalency of pain control in place of medical marijuana that she cannot use while in the hospital. I discussed with patient that hospitalist will allow for short term low dose IV morphine prn for now to help patient with her physical rehabilitation while she is in the hospital and that the morphine will not be a [employer] solution to pain control. Morphine is ordered as 0.5 mg every 6 hours as needed for severe pain and hospitalist discussed this plan with nursing staff. Review of Systems Review of Systems: All systems reviewed & are unremarkable except as noted in Subjective Physical Exam Constitutional: cooperative Eyes: PERRL, conjunctivae normal, anicteric sclerae EOM intact bilaterally ENMT: external ear and nose normal, oropharynx normal Neck: normal visual inspection Respiratory: normal respiratory effort, lungs clear to auscultation Cardiovascular: Rate/Rhythm: regular rate Gastrointestinal (Abdomen): normal bowel sounds, soft, nontender, no hepatosplenomegaly Musculoskeletal: Head/Neck/Chest: normocephalic and head atraumatic Neurologic: PERRL, EOMI, accommodation nl, no face palsy, no dysarthria CN's II-XI intact bilaterally Psychiatric: Orientation: alert, oriented to person, oriented to place, oriented to time and cooperative Results & Data Results & Data ([facility]) Vital Signs (Past 12 Hours) Vital Signs Temp Pulse Pulse Resp BP BP Pulse Ox 12/31/19 07:30 36.8 C 71 18 124/82 99 12/31/19 06:58 67 12/31/19 03:50 68 12/31/19 03:00 36.6 C 81 16 137/66 99
[2019-12-31] MEDS: LOPERAMIDE HCL 2 MG CAP PO PRN (15:50)
[2019-12-31] MEDS: MoRPHine SULFATE 2 MG/ML CARP IV PRN ×2 (17:10→23:03)
[2019-12-31] MEDS: GABAPENTIN 400 MG CAP PO SCH (21:34)
[2020-01-01] MEDS: LEVOTHYROXINE SODIUM 50 MCG TABLET PO SCH (05:54)
[2020-01-01] MEDS: MoRPHine SULFATE 2 MG/ML CARP IV PRN ×3 (05:55→19:01)
[2020-01-01] MEDS: LIDOCAINE 5% 1 PATCH TD SCH (07:57)
[2020-01-01] MEDS: FERROUS SULFATE 325 MG TAB PO SCH ×2 (07:58→16:28)
[2020-01-01] MEDS: PANTOprazole 40 MG TAB PO SCH (07:59)
[2020-01-01] MEDS: DULOXETINE HCL 20 MG CAP PO SCH (07:59)
[2020-01-01] MEDS: GABAPENTIN 300 MG CAP PO SCH ×2 (07:59→11:15)
[2020-01-01] MEDS: lamoTRIgine 25 MG TAB PO SCH (08:00)
[2020-01-01] MEDS: METOPROLOL TARTRATE 25 MG TAB PO SCH ×2 (08:00→21:11)
[2020-01-01] MEDS: POTASSIUM CHLORIDE 20 MEQ TABCR PO SCH (08:01)
[2020-01-01] MEDS: ASPIRIN 81 MG ECTAB PO SCH (08:01)
[2020-01-01] MEDS: HEPARIN SOD 5,000 UNIT/0.5 ML VIAL SQ SCH ×2 (08:02→21:12)
[2020-01-01] MEDS: LOSARTAN POTASSIUM 50 MG TAB PO SCH (08:02)
[2020-01-01] MEDS: predniSONE 5 MG TAB PO SCH (08:02)
[2020-01-01] MEDS: CALCITRIOL 0.25 MCG CAPSULE PO SCH (08:02)
--- NOTE | 2020-01-01 13:55 | Hospitalist Progress Note ---
Date of Service January 01, 2020 Assessment & Plan (1) Hip dislocation, left: Bipolar disorder (Recent encephalopathy secondary to tramadol overdose) -originally patient presented to the hospital on 12/06/2019 at [facility] after over dose on tramadol and was found to have suicide note from home, patient then was under 302 and discharged on 12/20/2019 to behavioral health unit in same hospital at [facility] and during there she experienced acute left hip dislocation and returned to hospitalist medical service on 12/23/2019 -previous hospitalist had discussed with psychiatry who suggested that patient did not need further inpatient psychiatric hospitalization after this current return to hospitalist service. There is psychiatry note clearing her from requiring further inpatient psychiatry evaluation. -There is an outpatient appointment 01/24/2020 10:30 AM Provider Karine Young DO Department Psychiatry, [facility]. [facility] also asked to give her alternative options if patient has problems with [facility] affiliated provider -Continue Cymbalta, lamotrigine Acute left hip dislocation Fibromyalgia -Evaluated by orthopedic service, now s/p closed reduction of left total hip arthroplasty dislocation by Dr. Doan (12/24/19) -patient had been on telemetry because of episode of 4 beat run of V. tach last week but otherwise stable and patient's heart rates have been stable with metoprolol 6.25 mg twice a day -Ortho recommended low-dose aspirin and SCDs for DVT prophylaxis, follow-up with Dr. Doan in 2 weeks. -Ortho provided discharge instructions/DULCE MARIA precautions to the patient - PT OT have been following the patient while in the hospital and recommending physical therapy rehabilitation disposition, case management had been applying for [employer] but patient's insurance requested a peer to peer telephone conversation and then denied based on recent improvements of her therapy treatment. manufacturing maintenance manager discussed with patient on 12/28/2019 and patient plans to appear the insurance decision. Patient will continue to be inpatient at this time and work with PT/OT -12/30/2019: as time is going by, patient continues to have more fixation on pain regimen and focus of the pain not at the left hip but in miscellaneous areas of body such as face, neck , and opposite right leg, fingers of left hand and insists that these pains are from fibromyalgia and that patient reports if not treated more then her body will not be 100 percent to perform the physical therapies needing for her to be well; hospitalist agrees to increase pain medications of prn acetaminophen 650 mg q8 hours prn for pain of fever to q6 hours , continue meloxicam 15 mg prn daily for pain, continue prn Zanaflex, 3 lidoderm patches a day, and increased the gabapentin from 300 mg TID to be 300 mg q12 hours with 400 mg gabapentin qhs. patient appears to not demand narcotic pain medications such as fentanyl or oxycodone which she reports she does not like but in our conversation she seems to hint that she would like morphine in short term. hospitalist reaffirmed not proceeding to narcotic pain medications for now and patient agreeable so far. -12/31/2019: patient affirms she was able to make more progress with physical therapy and that she was able to some step exercises but then subsequently too painful for sleep. She then showed hospitalist a marijuana prescription card and reports that the she follows a Dr. Loki Ny for medical marijuana for pain but that she did not discuss this with primary care Dr. Osman or directly with other hospital doctors because she was concerned that this would have caused some social stigma. She insists that there must be some form of medical equivalency of pain control in place of medical marijuana that she cannot use while in the hospital. I discussed with patient that hospitalist will allow for short term low dose IV morphine prn for now to help patient with her physical rehabilitation while she is in the hospital and that the morphine will not be a residential solution to pain control. Morphine is ordered as 0.5 mg every 6 hours as needed for severe pain and hospitalist discussed this plan with nursing staff. -01/01/2020: patient today reports that the low dose prn morphine allowed her to sleep overnight and that the neck spasms and tinnitus have gone away. returned case inspector discussed discussed with medical doctor on progress of paperwork in regards to patient's wishes for placement for further therapy after the hospital stay. Osteoarthritis, on chronic prednisone -Continue usual prednisone 5 mg p.o. daily Hypertension -Continue losartan at 50 mg every morning Hypothyroidism -Continue usual levothyroxine DVT prophylaxis: aspirin and heparin q12 hours Admission and Anticipated Discharge Date Admission Date: December 23, 2019 Subjective patient today reports that the low dose prn morphine allowed her to sleep overnight and that the neck spasms and tinnitus have gone away. returned case inspector discussed discussed with medical doctor on progress of paperwork in regards to patient's wishes for placement for further therapy after the hospital stay. patient continues to be on room air. no shortness of breath. no vomiting. able to eat the food. Review of Systems Review of Systems: All systems reviewed & are unremarkable except as noted in Subjective Physical Exam Constitutional: cooperative Eyes: PERRL, conjunctivae normal, anicteric sclerae EOM intact bilaterally ENMT: external ear and nose normal, oropharynx normal Neck: normal visual inspection Respiratory: normal respiratory effort, lungs clear to auscultation Cardiovascular: Rate/Rhythm: regular rate Gastrointestinal (Abdomen): normal bowel sounds, soft, nontender, no hepatosplenomegaly Musculoskeletal: Head/Neck/Chest: normocephalic and head atraumatic Neurologic: PERRL, EOMI, accommodation nl, no face palsy, no dysarthria CN's II-XI intact bilaterally Psychiatric: Orientation: alert, oriented to person, oriented to place, oriented to time and cooperative Results & Data Results & Data ([facility]) Vital Signs (Past 12 Hours) Vital Signs Temp Pulse Pulse Resp BP Pulse Ox 01/01/20 11:19 36.9 C 69 20 139/93 95 01/01/20 07:03 37.0 C 68 71 17 123/73 100 01/01/20 03:05 36.6 C 71 18 153/91 H 99
[2020-01-01] MEDS: ACETAMINOPHEN 325 MG TAB PO PRN (14:46)
[2020-01-01] MEDS: DICLOFENAC SOD 1% GEL 100 GM TUBE EXT PRN (16:28)
[2020-01-01] MEDS: GABAPENTIN 400 MG CAP PO SCH (21:11)
[2020-01-02] MEDS: MoRPHine SULFATE 2 MG/ML CARP IV PRN ×3 (01:22→14:14)
[2020-01-02] MEDS: ACETAMINOPHEN 325 MG TAB PO PRN ×3 (01:23→14:17)
[2020-01-02] MEDS: TIZANIDINE HCL 4 MG TABLET PO PRN ×2 (01:23→17:26)
[2020-01-02] MEDS: LEVOTHYROXINE SODIUM 50 MCG TABLET PO SCH (05:20)
[2020-01-02] MEDS: ASPIRIN 81 MG ECTAB PO SCH ×2 (07:56→07:59)
[2020-01-02] MEDS: predniSONE 5 MG TAB PO SCH (07:58)
[2020-01-02] MEDS: LOSARTAN POTASSIUM 50 MG TAB PO SCH (07:58)
[2020-01-02] MEDS: PANTOprazole 40 MG TAB PO SCH (07:58)
[2020-01-02] MEDS: DULOXETINE HCL 20 MG CAP PO SCH (07:59)
[2020-01-02] MEDS: GABAPENTIN 300 MG CAP PO SCH ×2 (07:59→11:54)
[2020-01-02] MEDS: METOPROLOL TARTRATE 25 MG TAB PO SCH (07:59)
[2020-01-02] MEDS: CALCITRIOL 0.25 MCG CAPSULE PO SCH (07:59)
[2020-01-02] MEDS: lamoTRIgine 25 MG TAB PO SCH (07:59)
[2020-01-02] MEDS: FERROUS SULFATE 325 MG TAB PO SCH ×2 (08:00→18:43)
[2020-01-02 08:23] LABS: BUN Creatinine Ratio 22.5 (10-20); Creatinine Clr Calc Pharmacy 62.6 ml/min; Est GFR (Non-African American) 75.1; Potassium 4.2 mmol/L (3.5-5.1)
[2020-01-02 08:26] LABS: Bilirubin,Total 0.5 mg/dl (0.2-1); Globulin 3.1 gm/dl (2.5-4.0); Total Protein 6.1 gm/dl (6.4-8.2)
[2020-01-02] MEDS: HEPARIN SOD 5,000 UNIT/0.5 ML VIAL SQ SCH (09:09)
[2020-01-02] MEDS: LIDOCAINE 5% 1 PATCH TD SCH (09:09)
[2020-01-02] MEDS: DICLOFENAC SOD 1% GEL 100 GM TUBE EXT PRN (14:33)
--- NOTE | 2020-01-02 15:55 | Hospitalist Progress Note ---
Date of Service January 02, 2020 Assessment & Plan (1) Hip dislocation, left: Bipolar disorder (Recent encephalopathy secondary to tramadol overdose) -originally patient presented to the hospital on 12/06/2019 at [facility] after over dose on tramadol and was found to have suicide note from home, patient then was under 302 and discharged on 12/20/2019 to behavioral health unit in same hospital at [facility] and during there she experienced acute left hip dislocation and returned to hospitalist medical service on 12/23/2019 -previous hospitalist had discussed with psychiatry who suggested that patient did not need further inpatient psychiatric hospitalization after this current return to hospitalist service. There is psychiatry note clearing her from requiring further inpatient psychiatry evaluation. -There is an outpatient appointment 01/24/2020 10:30 AM Provider Karine Young DO Department Psychiatry, [facility]. [facility] also asked to give her alternative options if patient has problems with [facility] affiliated provider -Continue Cymbalta, lamotrigine Acute left hip dislocation Fibromyalgia -Evaluated by orthopedic service, now s/p closed reduction of left total hip arthroplasty dislocation by Dr. Doan (12/24/19) -patient had been on telemetry because of episode of 4 beat run of V. tach last week but otherwise stable and patient's heart rates have been stable with metoprolol 6.25 mg twice a day -Ortho recommended low-dose aspirin and SCDs for DVT prophylaxis, follow-up with Dr. Doan in 2 weeks. -Ortho provided discharge instructions/DULCE MARIA precautions to the patient - PT OT have been following the patient while in the hospital and recommending physical therapy rehabilitation disposition, case management had been applying for [facility] but patient's insurance requested a peer to peer telephone conversation and then denied based on recent improvements of her therapy treatment. -12/30/2019: as time is going by, patient continues to have more fixation on pain regimen and focus of the pain not at the left hip but in miscellaneous areas of body such as face, neck , and opposite right leg, fingers of left hand and insists that these pains are from fibromyalgia and that patient reports if not treated more then her body will not be 100 percent to perform the physical therapies needing for her to be well; hospitalist agrees to increase pain medications of prn acetaminophen 650 mg q8 hours prn for pain of fever to q6 hours , continue meloxicam 15 mg prn daily for pain, continue prn Zanaflex, 3 lidoderm patches a day, and increased the gabapentin from 300 mg TID to be 300 mg q12 hours with 400 mg gabapentin qhs. patient appears to not demand narcotic pain medications such as fentanyl or oxycodone which she reports she does not like but in our conversation she seems to hint that she would like morphine in short term. hospitalist reaffirmed not proceeding to narcotic pain medications for now and patient agreeable so far. -12/31/2019: patient affirms she was able to make more progress with physical therapy and that she was able to some step exercises but then subsequently too painful for sleep. She then showed hospitalist a marijuana prescription card and reports that the she follows a Dr. Loki Ny for medical marijuana for pain but that she did not discuss this with primary care Dr. Osman or directly with other hospital doctors because she was concerned that this would have caused some social stigma. She insists that there must be some form of medical equiv alency of pain control in place of medical marijuana that she cannot use while in the hospital. I discussed with patient that hospitalist will allow for short term low dose IV morphine prn for now to help patient with her physical rehabilitation while she is in the hospital and that the morphine will not be a exterminator helper solution to pain control. Morphine is ordered as 0.5 mg every 6 hours as needed for severe pain and hospitalist discussed this plan with nursing staff. -01/01/2020: patient today reports that the low dose prn morphine allowed her to sleep overnight and that the neck spasms and tinnitus have gone away. gearcase assembler discussed discussed with medical doctor on progress of paperwork in regards to patient's wishes for placement for further therapy after the hospital stay. -01/02/2020: patient discharge to home with health services as per her discussions and agreement with gearcase assembler. Osteoarthritis, on chronic prednisone -Continue usual prednisone 5 mg p.o. daily Hypertension -Continue losartan at 50 mg every morning Hypothyroidism -Continue usual levothyroxine DVT prophylaxis: aspirin when outpatient discharge medications sent electronically to [facility] at [address] [place] [address], [place] [address] patient should limit acetaminophen to less than 2000 mg in 1 day for pain upcoming scheduled appointments with [facility] 01/04/2020 10:40 AM Provider Arpit Osman III, MD Department Family Practice [facility] 01/24/2020 10:30 AM Provider Karine Young DO Department Psychiatry, [facility] patient to follow orthopedic discharge recommendations Admission and Anticipated Discharge Date Admission Date: December 23, 2019 Subjective patient discharge to home with health services as per her discussions and agreement with gearcase assembler. she is pleasant. no distress. no headache. no dizziness. no abdomen pain. no nausea. discharge plans discussed at length. Review of Systems Review of Systems: All systems reviewed & are unremarkable except as noted in Subjective Physical Exam Constitutional: cooperative Eyes: PERRL, conjunctivae normal, anicteric sclerae EOM intact bilaterally ENMT: external ear and nose normal, oropharynx normal Neck: normal visual inspection Respiratory: normal respiratory effort, lungs clear to auscultation Cardiovascular: Rate/Rhythm: regular rate Gastrointestinal (Abdomen): normal bowel sounds, soft, nontender, no hepatosplenomegaly Musculoskeletal: Head/Neck/Chest: normocephalic and head atraumatic Neurologic: PERRL, EOMI, accommodation nl, no face palsy, no dysarthria CN's II-XI intact bilaterally Psychiatric: Orientation: alert, oriented to person, oriented to place, oriented to time and cooperative Results & Data Results & Data ([facility]) Vital Signs (Past 12 Hours) Vital Signs Temp Pulse Resp BP Pulse Ox 01/02/20 11:18 36.9 C 84 18 145/87 H 97 01/02/20 07:51 36.7 C 100 H 20 151/93 H 96
--- NOTE | 2020-01-02 15:56 | Discharge Summary ---
Date of Service January 02, 2020 Admission HPI Per Admitting Provider 64-year-old female with history of bipolar disorder, recent encephalopathy secondary to tramadol overdose, osteoarthritis on chronic prednisone, Hypertension, hypothyroidism, other problems noted below presenting with sudden onset left hip pain this morning. Patient was recently transferred from the internal medicine service to the psychiatry unit after being admitted for encephalopathy secondary to tramadol overdose. This morning, while sitting in her bedside chair, the patient turned to her left side to reach for her clothes and upon returning to her sitting position, the patient felt a pop on her left hip followed by severe pain. The pain persisted prompting evaluation by orthopedic service. Left hip x-ray showing dislocation, previous arthroplasty. Hospitalist consulted for medical management perioperatively. On exam, the patient was seen with LEATHA Calhoun initially and LEATHA Matta during physical exam. Patient was seen resting in bed, comfortable, in very good spirits, jovial. States she has intermittent severe pain on the left hip, but was comfortable during my exam. Denies chest pain, shortness of breath, palpitations, dizziness, nausea vomiting, fevers or chills. At baseline, the patient has poor mobility secondary to chronic pain and arthritis. She does report being able to climb up 13 steps every day with no symptoms. No previous problems with surgeries or anesthesia. Principal Diagnosis Acute Left Hip dislocation (s/p closed reduction of left total hip arthroplasty dislocation by Dr. Doan on 12/24/19) Bipolar disorder /Depression; Recent encephalopathy secondary to tramadol overdose fibromyalgia Hypertension Osteoarthritis, on chronic prednisone Hypothyroidism Discharge Exam Constitutional cooperative Eyes PERRL, conjunctivae normal, anicteric sclerae EOM intact bilaterally ENMT external ear and nose normal, oropharynx normal Neck normal visual inspection Respiratory normal respiratory effort, lungs clear to auscultation Cardiovascular Rate/Rhythm: regular rate Gastrointestinal (Abdomen) normal bowel sounds, soft, nontender, no hepatosplenomegaly Musculoskeletal Head/Neck/Chest: normocephalic and head atraumatic Neurologic PERRL, EOMI, accommodation nl, no face palsy, no dysarthria CN's II-XI intact bilaterally Psychiatric Orientation: alert, oriented to person, oriented to place, oriented to time and cooperative Discharge Data Allergies Allergy/AdvReac Type Severity Reaction Status Date / Time cyclobenzaprine Allergy Intermediate RASH AND Verified 11/28/19 12:08 SWELLING fentanyl Allergy Intermediate MAJOR FEET Verified 11/28/19 12:08 SWELLING ketorolac [From Toradol] Allergy Unknown SEE COMMENT Verified 11/28/19 12:08 oxcarbazepine Allergy Unknown UNKNOWN - Verified 11/28/19 12:08 PT DOESN'T REMEMBER risperidone AdvReac Intermediate exhaustion Verified 11/28/19 12:08 clonazepam AdvReac Mild nausea Verified 11/28/19 12:08 Consultations 12/23/19 16:52 Consult Psychiatry Routine 12/23/19 16:55 Consult Orthopedic Surgery Routine Procedures Performed Operation Date: 12/24/19 10:00 Actual Procedures p Closed Reduction Extremity(Left) - Asif Doan DO Ordered Studies 12/24/19 FL fluoroscopy <1hr Routine FL hip LT 2-3V Routine Hospital Course (1) Hip dislocation, left: Bipolar disorder (Recent encephalopathy secondary to tramadol overdose) -originally patient presented to the hospital on 12/06/2019 at [facility] after over dose on tramadol and was found to have suicide note from home, patient then was under 302 and discharged on 12/20/2019 to behavioral health unit in same hospital at [facility] and during there she experienced acute left hip dislocation and returned to hospitalist medical service on 12/23/2019 -previous hospitalist had discussed with psychiatry who suggested that patient did not need further inpatient psychiatric hospitalization after this current return to hospitalist service. There is psychiatry note clearing her from requiring further inpatient psychiatry evaluation. -There is an outpatient appointment 01/24/2020 10:30 AM Provider Karine Young DO Department Psychiatry, [facility]. [facility] also asked to give her alternative options if patient has problems with [facility] affiliated provider -Continue Cymbalta, lamotrigine Acute left hip dislocation Fibromyalgia -Evaluated by orthopedic service, now s/p closed reduction of left total hip arthroplasty dislocation by Dr. Doan (12/24/19) -patient had been on telemetry because of episode of 4 beat run of V. tach last week but otherwise stable and patient's heart rates have been stable with metoprolol 6.25 mg twice a day -Ortho recommended low-dose aspirin and SCDs for DVT prophylaxis, follow-up with Dr. Doan in 2 weeks. -Ortho provided discharge instructions/DULCE MARIA precautions to the patient - PT OT have been following the patient while in the hospital and recommending physical therapy rehabilitation disposition, case management had been applying for [facility] but patient's insurance requested a peer to peer telephone conversation and then denied based on recent improvements of her therapy treatment. -12/30/2019: as time is going by, patient continues to have more fixation on pain regimen and focus of the pain not at the left hip but in miscellaneous areas of body such as face, neck , and opposite right leg, fingers of left hand and insists that these pains are from fibromyalgia and that patient reports if not treated more then her body will not be 100 percent to perform the physical therapies needing for her to be well; hospitalist agrees to increase pain medications of prn acetaminophen 650 mg q8 hours prn for pain of fever to q6 hours , continue meloxicam 15 mg prn daily for pain, continue prn Zanaflex, 3 lidoderm patches a day, and increased the gabapentin from 300 mg TID to be 300 mg q12 hours with 400 mg gabapentin qhs. patient appears to not demand narcotic pain medications such as fentanyl or oxycodone which she reports she does not like but in our conversation she seems to hint that she would like morphine in short term. hospitalist reaffirmed not proceeding to narcotic pain medications for now and patient agreeable so far. -12/31/2019: patient affirms she was able to make more progress with physical therapy and that she was able to some step exercises but then subsequently too painful for sleep. She then showed hospitalist a marijuana prescription card and reports that the she follows a Dr. Loki Ny for medical marijuana for pain but that she did not discuss this with primary care Dr. Osman or directly with other hospital doctors because she was concerned that this would have caused some social stigma. She insists that there must be some form of medical equivalency of pain control in place of medical marijuana that she cannot use while in the hospital. I discussed with patient that hospitalist will allow for short term low dose IV morphine prn for now to help patient with her physical rehabilitation while she is in the hospital and that the morphine will not be a extermination inspector solution to pain control. Morphine is ordered as 0.5 mg every 6 hours as needed for severe pain and hospitalist discussed this plan with nursing staff. -01/01/2020: patient today reports that the low dose prn morphine allowed her to sleep overnight and that the neck spasms and tinnitus have gone away. oil field caser discussed discussed with medical doctor on progress of paperwork in regards to patient's wishes for placement for further therapy after the hospital stay. -01/02/2020: patient discharge to home with health services as per her discussions and agreement with oil field caser. Osteoarthritis, on chronic prednisone -Continue usual prednisone 5 mg p.o. daily Hypertension -Continue losartan at 50 mg every morning Hypothyroidism -Continue usual levothyroxine DVT prophylaxis: aspirin when outpatient discharge medications sent electronically to [facility] at [address] [place] [address] patient should limit acetaminophen to less than 2000 mg in 1 day for pain upcoming scheduled appointments with [facility] 01/04/2020 10:40 AM Provider Arpit Osman III, MD Department [facility] 01/24/2020 10:30 AM [facility] follow [facility] discharge recommendations Total Time Total Time Spent Total Time Spent (In Minutes): 40 minutes Total Time Includes: Examination of the Patient, Discharge Planning, Medication Reconciliation and Communication With Other Providers Discharge Plan Discharge Items Patient Disposition: Home - Home Health Services Reason For Visit: L HIP DISLOCATION Discharge Diagnosis: Acute Left Hip dislocation (s/p closed reduction of left total hip arthroplasty dislocation by Dr. Doan on 12/24/19) Bipolar disorder /Depression; Recent encephalopathy secondary to tramadol overdose fibromyalgia Hypertension Osteoarthritis, on chronic prednisone Hypothyroidism Condition on Discharge: Good Activity: Per Instructions section Non-emergency contact: Primary Care Provider and Surgeon Call non-emergency contact if: you have any medication questions Follow-up/Referrals: Asif Doan DO [Surgeon] - (Call to schedule a follow up for ~2 weeks from discharge.) Arpit Osman MD [Primary Care Provider] - Diet: Regular Addtl Attending Provider Instructions: discharge medications sent electronically to [facility] at [address] [place] [address] patient should limit acetaminophen to less than 2000 mg in 1 day for pain upcoming scheduled appointments with [facility] 01/04/2020 10:40 AM Provider Arpit Osman III, MD Department [facility] 01/24/2020 10:30 AM Provider [facility] Addtl Ballroom Dancer Provider Instructions: ACTIVITY RECOMMENDATIONS: SELF CARE INSTRUCTIONS AFTER TOTAL HIP REPLACEMENT Until the incision and soft tissues around your hip have healed, there is a possibility that the hip prosthesis could dislocate. A. Observe the following precautions to prevent dislocation: 1. Don't bend your hip greater than 90 degrees. 2. Avoid crossing your legs or ankles while standing or lying. 3. Sit with your feet placed 6 inches apart. 4. When sitting, keep your knees below your hips. Sit on a firm surface, avoid deep, soft chairs and couches. Use an elevated toilet seat in the bathroom. 5. Don't bend over at the waist. Use a long handled shoehorn and a sock aid to help you put on your shoes and socks. A filter plant supervisor can help you hot die picker objects that are too high or too low to reach. 6. Keep car riding to a minimum for at least one month after surgery. B. Your balance may be shaky for a while. Use crutches or a walker until directed by your doctor. C. Use hand rails when walking on stairs. D. Wear low heeled shoes with non-slip soles. E. Be sure that your floors are free of things that could trip you - throw rugs, electrical cords, small objects. Avoid wet and waxed floors, especially with crutches and canes. F. Try to walk several times a day with rest periods between. G. Continue with all the exercises taught to you in the hospital. Again, make walking a part of your daily routine. SPECIAL CARE INSTRUCTIONS: VERY IMPORTANT TO READ AND REVIEW A. You may still be at risk for phlebitis and blood clots. 1. Wear surgical stockings (COLTON hose) for 2 weeks after surgery to improve circulation and reduce swelling. 2. Take Aspirin 81mg twice daily for 2 weeks or as directed by your doctor. This is your blood thinner. B. Please call the office at if you have any concerns or questions about your operation or recovery. * YOU MAY SHOWER, NO TUB BATHS UNTIL CLEARED BY YOUR DOCTOR. * YOU SHOULD USE A WALKER OR CRUTCHES FOR 2-4 WEEKS. THIS WILL HELP PREVENT STRAIN ON YOUR HIP MUSCLE AND ALLOW IT TO HEAL PROPERLY. YOU MAY WEAN TO A CANE TOLERATED. * MOST PATIENTS WILL HAVE HOME NURSING FOR THERAPY. IF YOU DECIDE TO DO OUTPATIENT PHYSICAL THERAPY, PLEASE SCHEDULE THIS 3 TIMES PER WEEK. FOLLOW UP VISIT: If appointment is not already scheduled: Please call [facility] to make a follow-up appointment for 2 weeks after your surgery at . Pending Studies at Discharge: No Stand-Alone Forms: My [facility] [employer], Smoking Cessation Medications and DC Order Prescriptions: New losartan 50 mg Tablet 50 mg PO QAM 30 Days Qty: 30 RF: 0 metoprolol tartrate 25 mg Tablet 6.25 mg PO BID 30 Days Qty: 15 RF: 0 acetaminophen 325 mg Tablet 325 mg PO Q6H PRN (Reason: fever or pain) 5 Days Qty: 5 RF: 0 aspirin 81 mg Tablet,Delayed Release (Dr/Ec) 81 mg PO QAM 30 Days Qty: 30 RF: 0 meloxicam 7.5 mg Tablet 7.5 mg PO QAM PRN (Reason: pain) 5 Days Qty: 5 RF: 0 gabapentin 400 mg Capsule 400 mg PO HS 30 Days Qty: 30 RF: 0 lidocaine 5 % Adhesive Patch,Medicated 3 patch transdermal QAM 5 Days Qty: 15 RF: 0 gabapentin 300 mg Capsule 300 mg PO DAILY@0800,1200 30 Days Qty: 60 RF: 0 Continued calcitriol 0.25 mcg capsule 0.25 mcg PO DAILY Qty: 30 RF: 0 prednisone 5 mg Tablet 5 mg PO DAILY RF: 0 albuterol sulfate 90 mcg/actuation Hfa Aerosol Inhaler 1 puff INHALATION QID PRN (Reason: cough, wheezing) RF: 0 lamotrigine [Lamictal] 25 mg Tablet 25 mg PO QAM Qty: 1 RF: 0 levothyroxine [Synthroid] 50 mcg Tablet 50 mcg PO DAILYBB Qty: 1 RF: 0 pantoprazole 40 mg Tablet,Delayed Release (Dr/Ec) 40 mg PO QAM Qty: 1 RF: 0 hydroxyzine HCl 25 mg Tablet 50 mg PO HSZ Qty: 1 RF: 0 hydroxyzine HCl 25 mg Tablet 25 mg PO Q4H PRN (Reason: Anxiety) Qty: 1 RF: 0 ferrous sulfate 325 mg (65 mg iron) Tablet,Delayed Release (Dr/Ec) 325 mg PO BIDM Qty: 1 RF: 0 sodium chloride [Saline Mist] 0.65 % Aerosol,Rio 1 - 2 spray NA PRN Qty: 1 RF: 0 duloxetine 20 mg Capsule,Delayed Release(Dr/Ec) 40 mg PO QAM Qty: 1 RF: 0 diclofenac sodium [Voltaren] 1 % Gel 2 g EXT Q6H PRN (Reason: pain) 1 Days Qty: 1 RF: 0 Discontinued acetaminophen [Tylenol Extra Strength] 500 mg tablet 500 mg PO QID PRN (Reason: Pain) RF: 0 chlorthalidone 25 mg Tablet 25 mg PO QAM 7 Days Qty: 7 RF: 0 acetaminophen [Mapap (acetaminophen)] 325 mg Tablet 650 mg PO Q4H PRN (Reason: pain) Qty: 1 RF: 0 ondansetron 8 mg Tablet,Disintegrating 8 mg PO Q8H PRN (Reason: nausea) Qty: 1 RF: 0 potassium chloride [Klor-Con M20] 20 mEq Tablet,Er Particles/Crystals 20 meq PO BID Qty: 1 RF: 0 magnesium hydroxide [Milk of Magnesia] 400 mg/5 mL Suspension 30 ml PO DAILY PRN (Reason: Abdominal Discomfort) Qty: 1 RF: 0 bismuth subsalicylate [Kaopectate (bismuth subsalicy)] 262 mg/15 mL Suspension 15 ml PO PRN Qty: 1 RF: 0 gabapentin 300 mg Capsule 300 mg PO TID Qty: 1 RF: 0 metoprolol tartrate 25 mg Tablet 6.25 mg PO BID Qty: 1 RF: 0 MAG-AL 200-200 mg/5 mL Suspension 30 ml PO Q4H PRN (Reason: Abdominal Discomfort) Qty: 1 RF: 0 hyoscyamine sulfate 0.125 mg Tablet 0.125 mg PO Q4 PRN (Reason: Abdominal Pain) RF: 0 Discharge Orders: Discharge Order (Routine); Ordered 01/02/20 Ordered By: Sesar Duran Admission Data Admit Date/Time: 12/23/19 16:29 Attending Provider: Sesar Duran Admit Provider: Markie Reddy Primary Care Provider: Arpit Osman Other Providers: Robby Little ; Angeli Turner ; Asif Doan ; [facility] Other Interventions: PSY Interdisciplinary Discharge Planning Last Done: 01/02/20 15:34
== END 2020-01-02 19:27 | disposition home health service (06) | DRG 560 ==
LOC: 3N 16:29 → SUATTDRO 16:29 → 2W 18:17

== ENCOUNTER 2020-06-14 02:54 | Observation (INO) ==
[2020-06-14] MEDS ORDERED: ONDANSETRON 4 MG OD TAB PO STA (03:37)
[2020-06-14] MEDS ORDERED: HYDROmorphone INJ 1 MG/ML SYRINGE IM STA (03:37)
--- NOTE | 2020-06-14 05:55 | Emergency Department Note ---
Impression & Plan Suicidal ideation ED Provider Note NAME: GERA RONDON AGE: 64 SEX: F ARRIVES VIA: Ambulance INFORMANT: Patient EMS ED PROVIDER(S): Ana Hall DO CHIEF COMPLAINT: Back pain PLAN: Disposition: Involuntary admission to 3 S. Condition: Fair MEDICAL DECISION MAKING: This is a 64-year-old female patient with a history of fibromyalgia and chronic pain who presents to the emergency department with suicidal ideations. The patient presented if we were not willing to treat her pain with IV Dilaudid that she had plans to kill herself. She made the statement to multiple people including the chief load dispatcher, police, EMS, and the ED psychiatric cyanide case hardener. The patient admits that she suffers from mental health illness and has a very difficult time coping with her chronic pain. Patient has a history of self- harm. I felt to require inpatient psychiatric care. Triage Nursing notes reviewed and agree them. Additional history obtained from lease and EMS Prior medical records reviewed including the 2 previous emergency department visits in the past 24 hours Vital Signs: reviewed and remarkable for pretension Differential diagnosis: Drug abuse, conversion disorder, personality disorder, thought disorder, mood disorder, suicidal ideation ER treatment provided: [place] HPI: 64/F arrives for evaluation of suicidal statements. This is a 64-year-old female patient who presents to the emergency department complaining of chronic back pain and feeling as if she is like she is living "in hell" As she describes it. Patient explains to me that she had been using medical marijuana for some time but stopped using it and believes that may be what triggered the significant exacerbation of her pain. Patient also explains to me that over the recent past she had been using kratom but noticed that she had to use more of it in order to get the effects that she was used to and felt that she was becoming dependent upon it. She has not used the past 24 hours. The patient feels increasingly depressed because of the diffuse muscle spasms that she experiences and describes that she is having difficulty in simple tasks such as getting dressed. Patient explained to me that her PCP referred her to [facility] and they would not agree to do anything for her. She also describes being referred to [facility] and they tried a few modalities but these were unsuccessful and they "dropped her like a rock" as she describes it. The patient called EMS tonight explaining to the chief load dispatcher that she suffers from severe back pain and that she had plans to kill herself if her back pain was not treated appropriately with IV Dilaudid here in the emergency department. Police and EMS presented to her home and she repeated the statements to them. ROS: See above HPI for pertinent positives & negatives. A total of 10 systems reviewed and were otherwise negative. PAST MEDICAL HISTORY:See Below PAST SURGICAL HISTORY:See Below FAMILY HISTORY:See Below SOCIAL HISTORY:See Below HOME MEDICATIONS:See list ALLERGIES:See list VITALS:See Below PHYSICAL EXAMINATION: HEENT: Head - normocephalic and atraumatic Pupils are equal, round, and reactive to light. Extraocular eye muscles are intact, and sclera are anicteric. Nose - moist nasal mucosa without discharge. Mouth - moist buccal mucosa. Oropharynx is nonerythematous and there is no tonsillar exudate or edema noted. Neck: Supple; no cervical lymphadenopathy or nuchal rigidity Heart: Regular rate and rhythm. There is a normal S1 and S2 with no murmurs, clicks, or gallops appreciated. Lungs: Clear to auscultation bilaterally with no wheezes, rales, or rhonchi. Abdomen: Soft, completely nontender, mildly distended, with good bowel sounds. There are no palpable pulsatile masses or hepatosplenomegaly. There is no guarding, rigidity, or rebound noted. Extremities: No evidence of cyanosis, clubbing, or edema. There are easily palpable peripheral pulses. Skin: warm and dry with good turgor and no rashes. Psych: The patient makes good eye contact. She is tearful at times. She does admit to chronic posttraumatic stress disorder. She does admit to making suicidal statements with regards to not receiving pain medications. ED COURSE: Times/Reassessments: 0300: The patient was evaluated in room C9. A complete history and physical was performed. Previous electronic medical records were reviewed. I spent some time talking to the patient about the risks and benefits of using opioids to treat chronic pain. I explained her that I did not see any benefit in treating her with IV Dilaudid but that I would agree to give her IM Dilaudid for her pain and Zofran ODT. The patient was evaluated by the ED psychiatric cyanide case hardener. She felt as if the patient will require inpatient psychiatric care to maintain her safety. She offered the patient voluntary admission to an inpatient facility but the patient did not seem to have good insight. In fact, she listed off multiple stipulations that had to be in place before she was going to sign off for inpatient care. I had another lengthy conversation with the patient about her previous evaluations for her chronic pain through Dr. Osman and other subspecialists as well as previous psychiatric inpatient stays. I believe that the patient feels desperate and could potentially follow through with a suicidal threat given her inability to control her pain. The 302 was signed. Ana Hall DO Past Med/Surg History Medical History (Updated 06/14/20 @ 07:42 by Ana Hall DO) Bipolar II disorder Borderline personality disorder C. difficile diarrhea Chronic pain CKD (chronic kidney disease), stage III Fibromyalgia Hypertension Hypokalemia Hyponatremia Hypothyroidism IBS (irritable bowel syndrome) Polypharmacy Pressure injury of sacral region, stage 1 Recurrent Clostridioides difficile diarrhea Wound abscess Surgical History H/O carpal tunnel repair H/O inguinal hernia repair S/P cataract surgery Status post total hip replacement, left Family History Other Cancer Heart disease Hypertension Lung disease Social History Smoking Status: Former smoker Tobacco Type: Cigarettes Hx Alcohol Use: No Hx Substance Use: No Preferred Language: Croatian Communication Ability: Effective 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: No Beliefs That Will Affect Care: None marital status: / Current Living Situation: Alone current occupational status: retired Feels Safe at Home: Yes Assistive Devices: Glasses Allergies Allergies Allergy/AdvReac Type Severity Reaction Status Date / Time cyclobenzaprine Allergy Intermediate RASH AND Verified 06/14/20 03:24 SWELLING fentanyl Allergy Intermediate MAJOR FEET Verified 06/14/20 03:24 SWELLING ketorolac [From Toradol] Allergy Unknown SEE COMMENT Verified 06/14/20 03:24 oxcarbazepine Allergy Unknown UNKNOWN - Verified 06/14/20 03:24 PT DOESN'T REMEMBER risperidone AdvReac Intermediate exhaustion Verified 06/14/20 03:24 clonazepam AdvReac Mild nausea Verified 06/14/20 03:24 Home Meds Home Medications Medication Instructions Recorded Confirmed prednisone 5 mg PO QAM 08/18/18 06/14/20 acetaminophen [Tylenol Extra 1,000 mg PO Q4H PRN MDD 6 tablets 03/20/20 06/14/20 Strength] per day duloxetine 120 mg PO QAM 03/20/20 06/14/20 gabapentin 300 mg PO QID 03/20/20 06/14/20 lamotrigine 100 mg PO BID 03/20/20 06/14/20 losartan 50 mg PO QAM 03/20/20 06/14/20 metaxalone 800 mg PO QID 03/20/20 06/14/20 omeprazole 20 mg PO BID 03/20/20 06/14/20 ondansetron 8 mg PO Q8H PRN 03/20/20 06/14/20 topiramate 150 mg PO HS 03/20/20 06/14/20 Previous Rx's Medication Instructions Recorded ferrous sulfate 325 mg PO BIDM #1 tab 12/23/19 levothyroxine [Synthroid] 50 mcg PO DAILYBB #1 tab 12/23/19 sennosides [Senokot] 8.6 mg PO HS #30 tab 06/13/20 Results & Data (ED) Vital Signs Vital Signs - 24 hr 06/14/20 03:08 06/14/20 04:53 06/14/20 06:04 Temperature 37.0 C Temperature Source Oral Pulse Rate 87 Pulse Rate [Finger] 81 78 Pulse Rhythm [Finger] Regular Regular Pulse Strength [Finger] Normal Respiratory Rate 16 18 18 Respiratory Effort / Characteristics Non-Labored Spontaneous Non-Labored Spontaneous Respiratory Depth Normal Normal Normal Respiratory Pattern Regular Regular Blood Pressure 160/100 H Blood Pressure [Right Arm] 128/111 H 137/85 Blood Pressure Mean 120 Blood Pressure Mean [Right Arm] 116 102 Blood Pressure Position Lying Blood Pressure Position [Right Arm] Lying Lying Pulse Oximetry 100 98 98 Oxygen Delivery Method Room Air Room Air Room Air Sepsis Recent Fever Within 48 Hours No Sepsis New/Unexplained Change in Mental Status No Sepsis Action Taken by Nursing No Action Required 06/14/20 07:30 Temperature 37.0 C Temperature Source Oral Pulse Rate Pulse Rate [Finger] 93 H Pulse Rhythm [Finger] Regular Pulse Strength [Finger] Normal Respiratory Rate 18 Respiratory Effort / Characteristics Non-Labored Spontaneous Respiratory Depth Normal Respiratory Pattern Regular Blood Pressure Blood Pressure [Right Arm] 151/90 H Blood Pressure Mean Blood Pressure Mean [Right Arm] 110 Blood Pressure Position Blood Pressure Position [Right Arm] Lying Pulse Oximetry 96 Oxygen Delivery Method Room Air Sepsis Recent Fever Within 48 Hours Sepsis New/Unexplained Change in Mental Status Sepsis Action Taken by Nursing Laboratory Data Lab Results 06/14/20 Range/Units 05:48 SARS-CoV-2 Ag (Rapid) Negative (Negative) Administered Medications Discontinued Medications Hydromorphone HCl (Hydromorphone Inj 1 Mg/Ml Syringe) 1 mg IM NOW STA Stop: 06/14/20 03:38 Last Admin: 06/14/20 03:44 Dose: 1 mg Documented by: [id number] Ondansetron HCl (Ondansetron 4 Mg Od Tab) 4 mg PO NOW STA Stop: 06/14/20 03:38 Last Admin: 06/14/20 03:44 Dose: 4 mg Documented by: [id number] Discharge Plan Visit Data Chief Complaint: Pain (Generalized) Stated Complaint: PAIN ED Provider: Ana Hall Discharge Problem: Suicidal ideation Forms Stand Alone Forms: [facility] Prescriptions Prescriptions: No Action prednisone 5 mg Tablet 5 mg PO QAM RF: 0 levothyroxine [Synthroid] 50 mcg Tablet 50 mcg PO DAILYBB Qty: 1 RF: 0 ferrous sulfate 325 mg (65 mg iron) Tablet,Delayed Release (Dr/Ec) 325 mg PO BIDM Qty: 1 RF: 0 acetaminophen [Tylenol Extra Strength] 500 mg Tablet 1,000 mg PO Q4H MDD 6 tablets per day PRN (Reason: Pain) RF: 0 ondansetron 8 mg tablet,disintegrating 8 mg PO Q8H PRN (Reason: Nausea) RF: 0 gabapentin 300 mg capsule 300 mg PO QID RF: 0 omeprazole 20 mg capsule,delayed release(DR/EC) 20 mg PO BID RF: 0 topiramate 100 mg tablet 150 mg PO HS RF: 0 losartan 100 mg tablet 50 mg PO QAM RF: 0 lamotrigine 100 mg Tablet 100 mg PO BID RF: 0 metaxalone 800 mg tablet 800 mg PO QID RF: 0 duloxetine 60 mg Capsule,Delayed Release(Dr/Ec) 120 mg PO QAM RF: 0 sennosides [Senokot] 8.6 mg tablet 8.6 mg PO HS Qty: 30 RF: 0
--- NOTE | 2020-06-14 08:36 | Communication Note ---
Date of Service: June 14, 2020 This is a patient with history of drug misuse and reportedly uncontrolled lower back pain. ER physician explained to me that patient was placed under 302 by psychiatry service because of statements that patient made that she would hurt herself if she did not get pain medications for the right lower back pain. ER physician explained that psychiatry service wanted medicine service to admit patient to hospitalist service to treat pain while psychiatry service follows A pain management consult is requested because of patient's difficulties with saini bjective pain relief and the discrepancies with generally good motor functional status in the past When I, hospitalist Dr. Duran, walked into the ED room with our team's physician editorial assistant patient and introduced ourselves, immediately the patient requested a different physician. She reports that she was not happy with my care of her in the past. When I introduced our physician editorial assistant to her who works with all the hospitalist in our hospital group and can see her with a different attending physician, patient declined physical exam by physician editorial assistant. Patient reports that she wanted to eat the food in front of her as this was the first amount of food she reported to have had in a while. During this interaction, patient was sitting upright on her own power, not in acute distress.
--- NOTE | 2020-06-14 09:14 | History & Physical Report ---
Date of Service June 14, 2020 Assessment & Plan (1) Acute exacerbation of chronic low back pain: (2) Fibromyalgia: This is a 64-year-old female who has significant past medical history of HTN, CKD stage III, fibromyalgia, chronic pain syndrome, Heart's esophagus, hyperparathyroidism, bipolar disorder, history of suicide attempt by overdose history of lumbar fusion, frozen SI joint who presents to ED secondary to suicidal ideation prior to arrival. Pt did have fall 2 months ago, also dislocation of prior L DULCE MARIA requiring reduction CT pelvis imaging reviewed from 06/13 She has been off prescribed narcotics and was participating in neuro feedback treatment which was successful per outpt epic notes In ED she did receive narcotic on 06/13 as well as IV dilaudid 06/14 admit to med/surg consult pain management for further assistance schedule Tylenol and ice therapy no further imaging required at this point feel pt is going to benefit from multidisciplinary approach from psych and pain management for appropriate and therapy consult PT/OT pt requesting assistance at home and will meals therefore will consult wafer abrading machine tender and CM (3) Suicidal ideation: (4) Bipolar II disorder: (5) Borderline personality disorder: Pt presents with thoughts of harming self 2/2 to worsening pain stating if she does not receive pain medications she will kill herself, method is cutting no access to firearms She was 302 in ED continue lamictal, topamax, cymbalta consult psych for further assistance in management suicide precautions; 1:1 (6) HTN (hypertension): BP elevated this a.m. and has not taken a.m. meds resume losartan (7) CKD (chronic kidney disease), stage III: baseline cr 1.0-1.2 monitor renal function, avoid nephrotoxic agents if able (8) Hypothyroidism: continue levothyroxine TSH 06/13 2.24 (9) DVT prophylaxis: encourage ambulation avoid scd/teds 2/2 to suidicial ideation along with chemical prophylaxis in setting of recent fall and S.I. reassess daily need for prophylaxis Disposition: admit to med/surg for pain management consultation with eventual transfer to for inpatient psychiatric care Follow up: PCP Dr. Osman upon discharge Pt was seen and examined in collaboration with Dr. Gonzalez, please see addendum History of Present Illness Chief Complaint: Suicidal ideation prior to arrival. Primary Care Provider: Arpit Osman MD This is a 64-year-old female who has significant past medical history of HTN, CKD stage III, fibromyalgia, chronic pain syndrome, Heart's esophagus, hyperparathyroidism, bipolar disorder, history of suicide attempt by overdose history of lumbar fusion, frozen SI joint who presents to ED secondary to suicidal ideation prior to arrival. Of significance patient was seen and evaluated in ED 06/13/2020 for chronic pelvic pain. She received Toradol in ED and was discharged home on oxycodone. Lab work at that time was unremarkable except for sodium of 135. Her urinalysis was also consistent with marijuana but otherwise negative. She presented back to ED today 06/14 secondary to worsened acute on chronic pain stating that if she did not receive pain medication she was going to kill herself. She was 302 by ER physician and felt to be a threat to herself. Currently in hospital she does not have any plan to kill herself, but states if she was discharged she would cut herself from head to toe. She denies having any firearms at home. She admits to having chronic pain and fibromyalgia and feels has been exacerbated secondary to the weather. She states she is very weather sensitive. She did have a fall 2 months ago but otherwise no trauma. She states she lost her balance secondary to her cat. She was seen and evaluated in the ED. At that time she sustained left hip dislocation. This was reduced. She states tramadol had helped in the past, but currently was not helping every 6 hours. She then was taking it every 4 hours despite recommendations and it still was not helping. She states she has had a lot of psychological trauma in the past and is requesting help for this. She complains of PTSD. She was followed by pain management, but is currently no longer following. She also had lumbar surgical procedure by Dr. Priest who she is also not following due to her personal preference. She does see a chiropractor which has significantly helped her pain. She also admits to being on medical marijuana. She did undergo pelvis CT yesterday which revealed no acute fracture or subluxation, noted inferior lumbar spine posterior interbody rosalia and screw fusion and left DULCE MARIA. Chronic fracture deformity at S1-S2. No other acute abnormalities. In the outpatient setting she has been following with neuro feedback treatment which had improved her pain significantly. However ever since fall 2 months ago it appears she has discontinued this treatment. Allergies Allergy/AdvReac Type Severity Reaction Status Date / Time cyclobenzaprine Allergy Intermediate RASH AND Verified 06/14/20 03:24 SWELLING fentanyl Allergy Intermediate MAJOR FEET Verified 06/14/20 03:24 SWELLING ketorolac [From Toradol] Allergy Unknown SEE COMMENT Verified 06/14/20 03:24 oxcarbazepine Allergy Unknown UNKNOWN - Verified 06/14/20 03:24 PT DOESN'T REMEMBER risperidone AdvReac Intermediate exhaustion Verified 06/14/20 03:24 clonazepam AdvReac Mild nausea Verified 06/14/20 03:24 Home Medications Medication Instructions Recorded Confirmed Type prednisone 5 mg PO QAM 08/18/18 06/14/20 History ferrous sulfate 325 mg PO BIDM #1 tab 12/23/19 06/14/20 Rx levothyroxine [Synthroid] 50 mcg PO DAILYBB #1 tab 12/23/19 06/14/20 Rx acetaminophen [Tylenol Extra 1,000 mg PO Q4H PRN MDD 6 tablets 03/20/20 06/14/20 History Strength] per day duloxetine 120 mg PO QAM 03/20/20 06/14/20 History gabapentin 300 mg PO QID 03/20/20 06/14/20 History lamotrigine 50 mg PO BID 03/20/20 06/14/20 History losartan 50 mg PO QAM 03/20/20 06/14/20 History metaxalone 800 mg PO QID 03/20/20 06/14/20 History omeprazole 20 mg PO BID 03/20/20 06/14/20 History ondansetron 8 mg PO Q8H PRN 03/20/20 06/14/20 History topiramate 150 mg PO HS 03/20/20 06/14/20 History sennosides [Senokot] 8.6 mg PO HS #30 tab 06/13/20 06/14/20 Rx Past Med/Surg History Medical History Bipolar II disorder Borderline personality disorder C. difficile diarrhea Chronic pain CKD (chronic kidney disease), stage III Fibromyalgia Hypertension Hypokalemia Hyponatremia Hypothyroidism IBS (irritable bowel syndrome) Polypharmacy Pressure injury of sacral region, stage 1 Recurrent Clostridioides difficile diarrhea Wound abscess Surgical History H/O carpal tunnel repair H/O inguinal hernia repair S/P cataract surgery Status post total hip replacement, left Family History Father Lung cancer associated cerebellar ataxia Macular degeneration Mother Pacemaker Other Cancer Heart disease Hypertension Lung disease Social History Smoking Status: Former smoker Tobacco Type: Cigarettes Second Hand Exposure: No; Hx Alcohol Use: No Hx Substance Use: Yes Last Used Substance: Days (ago) Last Used Substance Other:: Atleast 2 days ago for Kratom. Marijuana more then 24hrs. Substance Use Type Other:: Kratom, medical marijuna Preferred Language: Mohawk Communication Ability: Effective Boom Tender Required: No Beliefs That Will Affect Care: None marital status: / Current Living Situation: Alone Current Living Situation Comment: Lives alone in a multiple level house current occupational status: retired Feels Safe at Home: Yes Safety Concerns: Afraid for Self Assistive Devices: Cane and Glasses Review of Systems Review of Systems: All systems reviewed & are unremarkable except as noted in HPI & below Physical Exam Physical Exam: Constitutional: WD/WN, vitals as above, NAD, sitting up in bed, answers questions appropriately however is very tangential in conversation, constantly discussing her unhappiness with providers Head: Normocephalic, Atraumatic Eyes: PERRL, conjunctivae normal, anicteric sclerae ENMT: external ear and nose normal, oropharynx normal Neck: trachea midline, no thyromegaly normal visual inspection Respiratory: normal respiratory effort, lungs clear to auscultation, no wheeze, rales, rhonchi. Normal insp/exp effort, no accessory muscle use Cardiovascular: RRR, no murmur, no edema Vessels: no JVD or carotid bruit Chest: normal inspection of chest Abdomen: normal bowel sounds, soft, nontender, no hepatosplenomegaly Musculoskeletal: no cyanosis or clubbing, active range of motion x4. She refused to participate in strength testing secondary to "pain all over." Skin: no rashes, warm and dry normal turgor Neurologic: PERRL, EOMI, accommodation nl, no face palsy, no dysarthria CN's II-XI intact bilaterally and moves all extremities Psychiatric: A+Ox3, euthymic affect : deferred Results & Data Results & Data ([facility]) Vital Signs (Past 12 Hours) Vital Signs Temp Pulse Pulse Resp BP BP Pulse Ox 06/14/20 07:30 37.0 C 93 H 18 151/90 H 96 06/14/20 06:04 78 18 137/85 98 06/14/20 04:53 81 18 128/111 H 98 06/14/20 03:08 37.0 C 87 16 160/100 H 100 Laboratory Results Lab work 06/13/2020 revealed WBC 7.76, H&H 14.6 and 42.3, platelet 343, sodium 135, K3.6, BUN 8, creatinine 1.02, TSH 2.24, urinalysis positive for marijuana Diagnostic Findings CT pelvis 06/13 revealed chronic S1-2 fracture, prior lumbar fusion and left DULCE MARIA Medications Administered Discontinued Medications Hydromorphone HCl (Hydromorphone Inj 1 Mg/Ml Syringe) 1 mg IM NOW STA Stop: 06/14/20 03:38 Last Admin: 06/14/20 03:44 Dose: 1 mg Documented by: [id number] Ondansetron HCl (Ondansetron 4 Mg Od Tab) 4 mg PO NOW STA Stop: 06/14/20 03:38 Last Admin: 06/14/20 03:44 Dose: 4 mg Documented by: [id number] Code Status & VTE Plan Code Status Full Code VTE Prophylaxis Plan VTE Prophylaxis will be ordered: No Supervising Physician Co-Signing Physician Notes Patient seen and examined. History and physical exam performed by me. Detailed history as documented above History is notable for 64-year-old woman with multiple psychiatric problems including bipolar, suicidal attempt, drug overdose, fibromyalgia who presents with worsening generalized body pain. Patient has also been taking Kratom and stopped recently Patient also reports depression, poor sleep and appetite Physical exam notable for generalized body tenderness with palpation of every part of body, intermittent crying spells, demonstrating tangentiality. Pelvic CT did not show any acute fracture or subluxation Pain likely related to exacerbation of chronic pain syndrome in background fibromyalgia versus withdrawal from opioid content of kratom Discussed the patient pain management extensively with pain management physician Dr. Sybil Devine recommended pain management options including dexamethasone plus ketorolac, trial of nucynta. Due to patient's history of drug overdose, will hold off nucynta Discussed with patient that I would avoid opioids at this time PDMP was reviewed. I discussed these with patient and she was agreeable Patient also evaluated by psychiatrist. Patient was 302 in the ER Discussed with the psychiatrist Dr. Turner Start on 0.1mg tid clonidine for one day. Will taper from tomorrow Monitor Continue 1:1 for now Other plans as documented by Gi Brito PA-C
[2020-06-14] MEDS ORDERED: GABAPENTIN 300 MG CAP PO STA (09:32)
[2020-06-14] MEDS ORDERED: lamoTRIgine 25 MG TAB PO STA (09:32)
[2020-06-14] MEDS ORDERED: DULoxetine HCL 60 MG CAP PO STA (09:32)
[2020-06-14] MEDS ORDERED: ACETAMINOPHEN 500 MG TAB PO STA (09:32)
[2020-06-14] MEDS ORDERED: LEVOTHYROXINE SODIUM 50 MCG TABLET PO STA (09:32)
[2020-06-14] MEDS ORDERED: predniSONE 5 MG TAB PO ONE (09:35)
[2020-06-14] MEDS ORDERED: METAXALONE 800 MG TABLET PO STA (09:35)
[2020-06-14] MEDS ORDERED: HYDROmorphone INJ 0.5 MG/0.5 ML SYR IM STA (09:36)
[2020-06-14] MEDS ORDERED: LOSARTAN POTASSIUM 50 MG TAB PO SCH ×2 (09:45→11:15)
[2020-06-14] MEDS ORDERED: ALUMINUM/MAGNESIUM SUSP 30 ML UDC PO PRN (11:15)
[2020-06-14] MEDS ORDERED: ACETAMINOPHEN 325 MG TAB PO PRN (11:15)
[2020-06-14] MEDS ORDERED: METAXALONE 800 MG TABLET PO SCH (11:15)
[2020-06-14] MEDS ORDERED: predniSONE 5 MG TAB PO SCH (11:15)
[2020-06-14] MEDS ORDERED: lamoTRIgine 25 MG TAB PO ONE (12:00)
[2020-06-14 12:21] LABS: Basophils # (auto) 0.03 K/uL (0-0.2); Basophils % (auto) 0.5 %; Eosinophils # (auto) 0.09 K/uL (0-0.5); Eosinophils % (auto) 1.4 %; Hematocrit (blood only) 35.7 % (37-47); Hemoglobin 12.4 g/dL (12.0-16.0); Immature Granulocytes # (auto) 0.02 K/uL (0.00-0.02); Immature Granulocytes % (auto) 0.3 %; Lymphocytes # (auto) 1.79 K/uL (1.2-3.4); Lymphocytes % (auto) 27.9 %; Mean Corpuscular Hemoglobin 31.4 pg (25-34); Mean Corpuscular Hgb Conc 34.7 g/dL (32-36); Mean Corpuscular Volume 90.4 fL (80-100); Mean Platelet Volume 9.3 fL (7.4-10.4); Monocytes # (auto) 0.67 K/uL (0.11-0.59); Monocytes % (auto) 10.5 %; Neutrophils # (auto) 3.81 K/uL (1.4-6.5); Neutrophils % (auto) 59.4 %; Platelet Count 268 K/uL (130-400); RDW Coefficient of Variation 13.4 % (11.5-14.5); RDW Standard Deviation 44.2 fL (36.4-46.3); Red Blood Count 3.95 M/uL (4.2-5.4); White Blood Count 6.41 K/uL (4.8-10.8)
[2020-06-14 12:38] LABS: Albumin Level 3.1 gm/dl (3.4-5.0); BUN Creatinine Ratio 14.6 (10-20); Calcium 9.2 mg/dl (8.5-10.1); Creatinine Clr Calc Pharmacy 46.1 ml/min; Est GFR (African American) 64.5; Est GFR (Non-African American) 55.7; Magnesium 2.1 mg/dl (1.8-2.4); Potassium 3.5 mmol/L (3.5-5.1)
[2020-06-14 12:47] LABS: Albumin Globulin Ratio 1.1 (0.9-2); Bilirubin,Total 0.4 mg/dl (0.2-1); Globulin 2.8 gm/dl (2.5-4.0); Total Protein 5.9 gm/dl (6.4-8.2)
--- NOTE | 2020-06-14 12:48 | Psychiatric Consultation ---
Date of Consultation June 14, 2020 Impression / Recommendations Impression 64 yo female with a history of bipolar II disorder and BPD, presentation complicated by chronic pain/multiple medical issues, made suicidal statements when unable to care for self at home on 2nd trip to ED where a 302 was completed but was not felt to be ambulatory/stable enough for current milieu on psychiatry and admitted medically to facilitate pain management. She has admitted to kratom use and her presentation would be consistent with withdrawal, both her restlessness/anxiety and vital signs and pain complaints. Plan: remains on 1-on-1 observation given hospital protocol, patient may wear own clothes rather than paper scrubs while on med floor if no strings/other safety concerns. care discussed with Dr. Gonzalez who had already contacted Dr. Oconnor. I'd suggest a clonidine taper as is standard for opiate withdrawal but at a lower dose as main intervention for anxiety as I suspect it is exacerbated by kratom withdrawal, such as clonidine 0.1 mg TID (rather than q4), then clonidine 0.05 mg po TID, with hold parameters. Patient is maxed on Cymbalta and I would defer to medical/pain management on her dosing of Neurontin. I will increase her Lamictal to 150 mg PO BID and she agreed to sign releases for outpatient providers, of course no direct contact will happen today given holiday. Options for acute management of anxiety are limited given refusal of multiple agents. I would not give a benzo to this patient. Cymbalta could be cross tapered to a tricyclic if medical/pain management feels appropriate over time, likely on an outpatient basis. Protective Factors Assessment Employed: No (quit job at [employer] several months ago) Psych History Identifying Data 64 yo female known to me from prior admission to December 2019. Presented to ED twice yesterday with pain and inability to care for self at home, made suicidal statement in context of pain and a 302 was completed in the ED. Currently on observation status on med floor under direction of Dr. Gonzalez. Chief Complaint "I'm so anxious and then they aren't giving me anything for pain and then it's a viscious cycle". History of Present Illness Kerline reports decline in functioning over past 2 months following a fall at home (states cat got between her legs). She had been doing well despite tapering pain meds due to neurofeedback work (report confirmed by Epoch by primary team). She generally relied on medical MJ for pain and anxiety management but stopped working as well. She admitted in ED that she purchased supplement kratom and has taken it regularly for at least 2 months, she increased dose (though is unsure by how much) earlier this month but started to feel like she may become dependent on it and stopped abruptly 2-3 days ago. Since that she has been having difficulty eating, feels internally restless/anxious but reports can't "get around" to care for herself at home. She remains med focussed with regards to her pain and is clear than anxiety predated the kratom withdrawal. There is some question about sporadic med non-compliance as her report and doses don't match, reports she was almost out of medication during Dr. Young's maternity leave and has had similar complaints about all clinics she attends. She reports she told her director of casework and therapist Carmen about the kratom use and is willing to sign ROIs. She currently states that she wants to be alive, just not "like this". She admits that her statements about self harm and "cut myself head to toe" were in frustration that can't continue with this pain. She denies any manic symptoms. She is chronically dysthymic due to her medical conditions. I spent >45 min with the patient discussing recent hx and med options as wants something for anxiety "now" and remains focussed on acute use of opiates. She states that Dr. Osman gave prn antihistamine for her anxiety that "did nothing" and declines Buspar retrial as "like candy". She states lorazepam worked best and reviewed why I will not prescribe that in combination with neurontin, hx of misuse of pain meds plus pain management consult still pending. Reviewed that mood lability sounds acutely worse and adjusting mood stabilizer may be better to target symptoms. She states that lamictal was retirating to 150 mg but now refusing to go back to [facility]. Reviewed options of atypicals such as Seroquel (lower dose, states that she gained 100 lbs and will not take atypicals "period".) Past Psychiatric History Current Psychiatric Diagnosis: Borderline Personality; Bipolar d/o; PTSD Outpatient Services: see above--Ramya Santacruz, neurofeedback with Carmen, currently assigned provider Dr. Young at [facility] Previous Psych Admissions: [facility] 01/05, 07/04. 5&12/2004, [facility] 10/03 Describe Attempts in the Past: Three prior attempts - 2 by OD and 1 by cutting upper arm Additional Notes: it is not clear to what degree tramadol OD was substance misuse vs suicide attempt. Allergies Allergy/AdvReac Type Severity Reaction Status Date / Time cyclobenzaprine Allergy Intermediate RASH AND Verified 06/14/20 03:24 SWELLING fentanyl Allergy Intermediate MAJOR FEET Verified 06/14/20 03:24 SWELLING ketorolac [From Toradol] Allergy Unknown SEE COMMENT Verified 06/14/20 03:24 oxcarbazepine Allergy Unknown UNKNOWN - Verified 06/14/20 03:24 PT DOESN'T REMEMBER risperidone AdvReac Intermediate exhaustion Verified 06/14/20 03:24 clonazepam AdvReac Mild nausea Verified 06/14/20 03:24 Home Medications Medication Instructions Recorded Confirmed Type prednisone 5 mg PO QAM 08/18/18 06/14/20 History ferrous sulfate 325 mg PO BIDM #1 tab 12/23/19 06/14/20 Rx levothyroxine [Synthroid] 50 mcg PO DAILYBB #1 tab 12/23/19 06/14/20 Rx acetaminophen [Tylenol Extra 1,000 mg PO Q4H PRN MDD 6 tablets 03/20/20 06/14/20 History Strength] per day duloxetine 120 mg PO QAM 03/20/20 06/14/20 History gabapentin 300 mg PO QID 03/20/20 06/14/20 History lamotrigine 50 mg PO BID 03/20/20 06/14/20 History losartan 50 mg PO QAM 03/20/20 06/14/20 History metaxalone 800 mg PO QID 03/20/20 06/14/20 History omeprazole 20 mg PO BID 03/20/20 06/14/20 History ondansetron 8 mg PO Q8H PRN 03/20/20 06/14/20 History topiramate 150 mg PO HS 03/20/20 06/14/20 History sennosides [Senokot] 8.6 mg PO HS #30 tab 06/13/20 06/14/20 Rx Substance Abuse History denied ETOH use, hx of opiate and tramadol misuse, + medical MJ card, recent kratom Personal History Living Arrangements: Apartment (by self) Born In: [place] Childhood: reports it was traumatic/mistreated by parents Employment Status: Retired (did work at [employer]) Marital Status: ( had Alzheimers) Number Of Children: none Beliefs That Will Affect Care: None History of Legal Problems: denied Patient History Medical History Bipolar II disorder Borderline personality disorder C. difficile diarrhea Chronic pain CKD (chronic kidney disease), stage III Fibromyalgia Hypertension Hypokalemia Hyponatremia Hypothyroidism IBS (irritable bowel syndrome) Polypharmacy Pressure injury of sacral region, stage 1 Recurrent Clostridioides difficile diarrhea Wound abscess Surgical History H/O carpal tunnel repair H/O inguinal hernia repair S/P cataract surgery Status post total hip replacement, left Family History Father Lung cancer associated cerebellar ataxia Macular degeneration Mother Pacemaker Other Cancer Heart disease Hypertension Lung disease Social History Smoking Status: Former smoker Tobacco Type: Cigarettes Hx Alcohol Use: No Hx Substance Use: No Preferred Language: Mauritian Communication Ability: Effective Inside Sales Person Required: No Beliefs That Will Affect Care: None marital status: / Current Living Situation: Alone current occupational status: retired Feels Safe at Home: Yes Assistive Devices: Glasses Physical Exam Psychiatric: Orientation: alert Apperance: + disheveled Eye Contact: + fair eye contact Motor Behavior: no abnormal motor movements hyperverbal but not pressured Affect: + tearful affect and + labile affect Mood: + anxious mood Thought Process: + circumstantial thought process Thought Content: reality based without delusions Suicidal Thoughts: denies suicidal thoughts but unable to contract for safety outside of unit Homicidal Thoughts: denies homicidal thoughts Hallucinations: no auditory hallucinations and no visual hallucinations Cognition: language grossly intact Estimated Intelligence: consistent with education level Insight: + poor insight Judgement: + poor judgement Vital Signs (Past 24 Hours): Last Vital Signs Temp 37 C 06/14/20 11:00 Pulse 76 06/14/20 11:00 Resp 18 06/14/20 11:00 BP 143/82 H 06/14/20 11:00 Pulse Ox 97 06/14/20 11:00 Review of Systems All systems reviewed & are unremarkable except as noted in HPI & below diffuse pain, n, severe anxiety Coding Level of Care Code 38466 [facility] Intl Hosp Care Lvl 3
[2020-06-14] MEDS: PANTOprazole 40 MG TAB PO SCH ×2 (13:27→21:04)
[2020-06-14] MEDS: METAXALONE 800 MG TABLET PO SCH ×3 (13:29→21:04)
[2020-06-14] MEDS: ACETAMINOPHEN 500 MG TAB PO SCH ×3 (13:30→21:04)
[2020-06-14] MEDS: GABAPENTIN 300 MG CAP PO SCH ×3 (13:30→21:03)
--- NOTE | 2020-06-14 13:50 | Emergency Department Note ---
ED Visit Note Received patient in signout. History and physical verified by me. Patient is here as a 302. Psychiatric department is requesting that the patient be admitted to the medicine service for pain control. I did discuss the case with the medicine service who did agree to admit the patient. Patient was given her morning medications. .
[2020-06-14] MEDS ORDERED: INFLUENZA VIRUS QUAD VACCINE 0.5 ML SYR IM ONE (14:46)
[2020-06-14] MEDS ORDERED: PNEUMOCOCCAL ADMINISTRATION CHARGE ONE (14:46)
[2020-06-14] MEDS ORDERED: INFLUENZA ADMINISTRATION CHARGE ONE (14:46)
[2020-06-14] MEDS ORDERED: PNEUMOCOCCAL POLYSACCHARIDES 25 MCG/0.5 ML VIAL/SYR IM ONE (14:46)
[2020-06-14] MEDS: KETOROLAC TROMETHAMINE 15 MG/ML VIAL IV PRN ×2 (15:16→21:22)
[2020-06-14] MEDS: FERROUS SULFATE 325 MG TAB PO SCH (17:32)
[2020-06-14] MEDS: cloNIDine HCL 0.1 MG TAB PO SCH (19:18)
--- NOTE | 2020-06-14 20:48 | Electrocardiogram Report ---
Test Reason : Blood Pressure : / mmHG Vent. Rate : 067 BPM Atrial Rate : 067 BPM P-R Int : 136 ms QRS Dur : 088 ms QT Int : 402 ms P-R-T Axes : 063 047 059 degrees QTc Int : 424 ms Normal sinus rhythm Low voltage QRS Borderline ECG When compared with ECG of 23-DEC-2019 21:26, No significant change was found Confirmed by Camacho Marsh ([id number]) on 06/14/2020 8:47:58 PM Referred By: REFERRED SELF Confirmed By:Camacho Marsh
[2020-06-14] MEDS ORDERED: lamoTRIgine 25 MG TAB PO SCH (21:00)
[2020-06-14] MEDS: TOPIRAMATE 50 MG TAB PO SCH (21:03)
[2020-06-14] MEDS: lamoTRIgine 100 MG TAB PO SCH (21:03)
[2020-06-14] MEDS: lamoTRIgine 25 MG TAB PO SCH (21:03)
[2020-06-14] MEDS: dexAMETHasone 4 MG TAB PO SCH (21:04)
[2020-06-14] MEDS: SENNA 8.6 MG TAB PO SCH (21:04)
[2020-06-14] MEDS: ZOLPIDEM TARTRATE 5 MG TAB PO PRN (23:51)
[2020-06-15] MEDS ORDERED: LORazepam 0.25 MG/0.5 ML VIAL IV STA (01:43)
[2020-06-15] MEDS: KETOROLAC TROMETHAMINE 15 MG/ML VIAL IV PRN ×3 (03:48→16:04)
[2020-06-15] MEDS: LEVOTHYROXINE SODIUM 50 MCG TABLET PO SCH (05:37)
[2020-06-15] MEDS ORDERED: LEVOTHYROXINE SODIUM 50 MCG TABLET PO SCH (06:30)
[2020-06-15] MEDS: GABAPENTIN 300 MG CAP PO SCH ×4 (08:24→21:50)
[2020-06-15] MEDS: METAXALONE 800 MG TABLET PO SCH ×4 (08:25→21:50)
[2020-06-15] MEDS: dexAMETHasone 4 MG TAB PO SCH ×2 (08:25→21:50)
[2020-06-15] MEDS: LOSARTAN POTASSIUM 50 MG TAB PO SCH (08:25)
[2020-06-15] MEDS: FERROUS SULFATE 325 MG TAB PO SCH ×2 (08:25→16:02)
[2020-06-15] MEDS: ACETAMINOPHEN 500 MG TAB PO SCH ×4 (08:25→21:49)
[2020-06-15] MEDS: DULoxetine HCL 60 MG CAP PO SCH (08:26)
[2020-06-15] MEDS: lamoTRIgine 25 MG TAB PO SCH ×2 (08:27→21:50)
[2020-06-15] MEDS: lamoTRIgine 100 MG TAB PO SCH ×2 (08:27→21:49)
[2020-06-15] MEDS: PANTOprazole 40 MG TAB PO SCH ×2 (08:27→21:50)
[2020-06-15] MEDS: cloNIDine HCL 0.1 MG TAB PO SCH ×5 (08:28→21:50)
[2020-06-15] MEDS ORDERED: predniSONE 5 MG TAB PO SCH ×2 (09:00)
[2020-06-15] MEDS ORDERED: DULoxetine HCL 60 MG CAP PO SCH (09:00)
[2020-06-15] MEDS ORDERED: LOSARTAN POTASSIUM 50 MG TAB PO SCH (09:00)
[2020-06-15] MEDS ORDERED: MELATONIN 3 MG TAB PO PRN (12:00)
--- NOTE | 2020-06-15 12:12 | Hospitalist Progress Note ---
Date of Service June 15, 2020 Assessment & Plan (1) Acute exacerbation of chronic low back pain: (2) Fibromyalgia: 64-year-old female who has significant past medical history of HTN, CKD stage III, fibromyalgia, chronic pain syndrome, Heart's esophagus, hyperparathyroidism, bipolar disorder, history of suicide attempt by overdose history of lumbar fusion, frozen SI joint who presents to ED secondary to suicidal ideation prior to arrival. Pt did have fall 2 months ago, also dislocation of prior L DULCE MARIA requiring reduction CT pelvis imaging reviewed from 06/13. No acute fractures She has been off prescribed narcotics and was participating in neuro feedback treatment which was successful per outpt epic notes Pain likely related to exacerbation of chronic pain syndrome in background fibromyalgia versus withdrawal from opioid content of kratom Continue dexamethasone + Ketorolac from recommendations from my conversation with Pain management Continue clonidine. Will do 0.1mg qid today and taper Psych recommendations appreciated Will give ativan one time now due to agitation but will avoid benzodiazepines I discussed with patient our reasons for avoiding opioids and she was agreeable to this (3) Suicidal ideation: (4) Bipolar II disorder: (5) Borderline personality disorder: Pt presents with thoughts of harming self 2/2 to worsening pain stating if she does not receive pain medications she will kill herself, method is cutting no access to firearms She was 302 in ED continue lamictal, topamax, cymbalta Patient now denying suicidal ideation Continue 1:1 for now Psych recommendations appreciated (6) HTN (hypertension): Continue losartan (7) CKD (chronic kidney disease), stage III: Baseline cr 1.0-1.2 Stable (8) Hypothyroidism: Continue levothyroxine TSH 06/13 2.24 (9) DVT prophylaxis: Patient currently out of bed Encourage activity Get PT/OT Admission and Anticipated Discharge Date Admission Date: June 14, 2020 Subjective Patient seen and examined Was wailing before i walked into the room. When I walked in she reported she did not get any sleep at night. States the ketorolac helps with pain but states that she intermittently gets anxious, nauseous and generalized body aches which she attributed to withdrawal. No diarrhea No abd pain, chest pain, SOB No palpitation Denied suicidal ideation. Acknowledges depression Labile mood with intermittent crying spells Physical Exam Constitutional: + well hydrated and + thin; no acute distress Eyes: PERRL, conjunctivae normal, anicteric sclerae ENMT: external ear and nose normal, oropharynx normal Respiratory: normal respiratory effort, lungs clear to auscultation Cardiovascular: RRR, no murmur, no edema Gastrointestinal (Abdomen): normal bowel sounds, soft, nontender, no hepatosplenomegaly Musculoskeletal: no cyanosis or clubbing, extremities motor strength 5/5 Neurologic: PERRL, EOMI, accommodation nl, no face palsy, no dysarthria Psychiatric: Orientation: alert and oriented x 3 Affect: + labile affect Occasional crying spells during my evaluation. Results & Data Results & Data ([facility]) Vital Signs (Past 12 Hours) Vital Signs Temp Pulse Resp BP Pulse Ox 06/15/20 07:07 37.6 C H 71 18 146/79 H 100 Laboratory Results Laboratory Results - last 24 hr 06/14/20 06/14/20 12:12 12:12 WBC 6.41 RBC 3.95 L Hgb 12.4 Hct 35.7 L MCV 90.4 MCH 31.4 MCHC 34.7 RDW Std Deviation 44.2 RDW Coeff of [place] 13.4 Plt Count 268 MPV 9.3 Immature Gran % (Auto) 0.3 Neut % (Auto) 59.4 Lymph % (Auto) 27.9 [place] % (Auto) 10.5 Eos % (Auto) 1.4 Baso % (Auto) 0.5 Neut # (Auto) 3.81 Lymph # (Auto) 1.79 [place] # (Auto) 0.67 H Eos # (Auto) 0.09 Baso # (Auto) 0.03 Immature Gran # (Auto) 0.02 Sodium 134 L Potassium 3.5 Chloride 106 Carbon Dioxide 21 Anion Gap 7.0 BUN 15 D Creatinine 1.05 Est Cr Clr Drug Dosing 46.1 Est GFR ( Amer) 64.5 Est GFR (Non-Af Amer) 55.7 BUN/Creatinine Ratio 14.6 Glucose 102 H Calcium 9.2 Magnesium 2.1 Total Bilirubin 0.4 AST 12 L ALT 13 Alkaline Phosphatase 69 Total Protein 5.9 L D Albumin 3.1 L Globulin 2.8 Albumin/Globulin Ratio 1.1
[2020-06-15] MEDS: LORazepam 0.5 MG TAB PO PRN (14:29)
[2020-06-15] MEDS: ZOLPIDEM TARTRATE 5 MG TAB PO PRN (16:04)
[2020-06-15] MEDS: TOPIRAMATE 50 MG TAB PO SCH (21:49)
[2020-06-15] MEDS: SENNA 8.6 MG TAB PO SCH (21:49)
[2020-06-16] MEDS: KETOROLAC TROMETHAMINE 15 MG/ML VIAL IV PRN ×4 (06:18→21:04)
[2020-06-16] MEDS: LEVOTHYROXINE SODIUM 50 MCG TABLET PO SCH (06:18)
[2020-06-16] MEDS: LORazepam 0.5 MG TAB PO PRN ×4 (09:29→21:07)
[2020-06-16] MEDS: ACETAMINOPHEN 500 MG TAB PO SCH ×4 (09:29→21:07)
[2020-06-16] MEDS: DULoxetine HCL 60 MG CAP PO SCH (09:30)
[2020-06-16] MEDS: dexAMETHasone 4 MG TAB PO SCH ×2 (09:30→21:08)
[2020-06-16] MEDS: GABAPENTIN 300 MG CAP PO SCH ×4 (09:30→21:06)
[2020-06-16] MEDS: lamoTRIgine 25 MG TAB PO SCH ×2 (09:30→21:07)
[2020-06-16] MEDS: METAXALONE 800 MG TABLET PO SCH ×4 (09:30→21:10)
[2020-06-16] MEDS: FERROUS SULFATE 325 MG TAB PO SCH ×2 (09:30→18:22)
[2020-06-16] MEDS: lamoTRIgine 100 MG TAB PO SCH ×2 (09:31→21:09)
[2020-06-16] MEDS: LOSARTAN POTASSIUM 50 MG TAB PO SCH (09:31)
[2020-06-16] MEDS: PANTOprazole 40 MG TAB PO SCH ×2 (09:31→21:09)
--- NOTE | 2020-06-16 09:40 | Hospitalist Progress Note ---
Date of Service June 16, 2020 Assessment & Plan (1) Acute exacerbation of chronic low back pain: (2) Fibromyalgia: 64-year-old female who has significant past medical history of HTN, CKD stage III, fibromyalgia, chronic pain syndrome, Heart's esophagus, hyperparathyroidism, bipolar disorder, history of suicide attempt by overdose history of lumbar fusion, frozen SI joint who presents to ED secondary to suicidal ideation prior to arrival. Pt did have fall 2 months ago, also dislocation of prior L DULCE MARIA requiring reduction CT pelvis imaging reviewed from 06/13. No acute fractures She has been off prescribed narcotics and was participating in neuro feedback treatment which was successful per outpt epic notes Pain likely related to exacerbation of chronic pain syndrome in background fibromyalgia versus withdrawal from opioid content of kratom Continue dexamethasone + Ketorolac from recommendations from my conversation with Pain management on admission Continue clonidine 0.1mg qid today. Will start tapering tomorrow Psych recommendations appreciated I explained to the patient I will not be giving opioid pain meds. No benzodiazepines today We discussed other nonpharmacological means to keep her engaged. She suggested listening to music, writing and watching TV. Discussed with RN to encourage her to do these to keep her engaged (3) Suicidal ideation: (4) Bipolar II disorder: (5) Borderline personality disorder: Pt presents with thoughts of harming self 2/2 to worsening pain stating if she does not receive pain medications she will kill herself, method is cutting no access to firearms She was 302 in ED continue lamictal, topamax, cymbalta Patient now denying suicidal ideation Continue 1:1 for now Psych recommendations appreciated (6) HTN (hypertension): Continue losartan (7) CKD (chronic kidney disease), stage III: Baseline cr 1.0-1.2 Stable (8) Hypothyroidism: Continue levothyroxine TSH 06/13 2.24 (9) DVT prophylaxis: Patient currently out of bed Encourage activity Get PT/OT Admission and Anticipated Discharge Date Admission Date: June 14, 2020 Subjective Patient seen and examined. Still reports chronic back pain Stated some of the withdrawal symptoms such as shivering, increased irritability are improving Was able to sleep yesterday night Patient asking for some ativan today Denied any chest pain, cough, SOB, abd pain, diarrhea, nausea, vomiting Per RN, she has been intermittently asking for more meds for pain Physical Exam Constitutional: + well hydrated and + thin; no acute distress Eyes: PERRL, conjunctivae normal, anicteric sclerae ENMT: external ear and nose normal, oropharynx normal Respiratory: normal respiratory effort, lungs clear to auscultation Cardiovascular: RRR, no murmur, no edema Gastrointestinal (Abdomen): normal bowel sounds, soft, nontender, no hepatosplenomegaly Musculoskeletal: no cyanosis or clubbing, extremities motor strength 5/5 Neurologic: PERRL, EOMI, accommodation nl, no face palsy, no dysarthria Psychiatric: Orientation: alert and oriented x 3 Affect: + labile affect Results & Data Results & Data ([facility]) Vital Signs (Past 12 Hours) Vital Signs Temp Pulse Resp BP Pulse Ox 06/16/20 07:09 37.1 C 61 18 142/80 H 98 06/16/20 00:00 37.0 C 64 16 134/86 100
[2020-06-16] MEDS: cloNIDine HCL 0.1 MG TAB PO SCH ×4 (10:17→21:06)
--- NOTE | 2020-06-16 11:13 | Psychiatric Progress Note ---
Date of Service June 16, 2020 Impression / Recommendations Impression 06/14--64 yo female with a history of bipolar II disorder and BPD, presentation complicated by chronic pain/multiple medical issues, made suicidal statements when unable to care for self at home on 2nd trip to ED where a 302 was completed but was not felt to be ambulatory/stable enough for current milieu on psychiatry and admitted medically to facilitate pain management. She has admitted to kratom use and her presentation would be consistent with withdrawal, both her restlessness/anxiety and vital signs and pain complaints. 06/14--Plan: remains on 1-on-1 observation given hospital protocol, patient may wear own clothes rather than paper scrubs while on med floor if no strings/other safety concerns. care discussed with Dr. Gonzalez who had already contacted Dr. Oconnor. I'd suggest a clonidine taper as is standard for opiate withdrawal but at a lower dose as main intervention for anxiety as I suspect it is exacerbated by kratom withdrawal, such as clonidine 0.1 mg TID (rather than q4), then clonidine 0.05 mg po TID, with hold parameters. Patient is maxed on Cymbalta and I would defer to medical/pain management on her dosing of Neurontin. I will increase her Lamictal to 150 mg PO BID and she agreed to sign releases for outpatient providers, of course no direct contact will happen today given holiday. Options for acute management of anxiety are limited given refusal of multiple agents. I would not give a benzo to this patient. Cymbalta could be cross tapered to a tricyclic if medical/pain management feels appropriate over time, likely on an outpatient basis. 06/16--She continues to deny SI and is unlikely to meet criteria for inpatient psychiatric admission (even on a voluntary basis) when medically cleared. Her psychiatric condition would be stable for discharge to physical rehab (or other appropriate level of homecare) when medically cleared. Liaison can confirm appointments with Camren Yap, and TYRONE Bui when offices reopen. 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 Protective Factors Assessment Employed: No (quit job at [employer] several months ago) Interval History Chief Complaint "I'm anxious, in more pain today--mainly know I'm better than the weather channel at predicting rain". Review of Systems Sleep Information Sleep Comments: good Meal Information Percent Meal Consumed - Breakfast: 100 Subjective Subjective Patient was seen & assessed and interval progress reviewed with liaison, interim progress reviewed. She remains on 1-on-[address] per hospital protocol and benefits from someone to talk to. Continues to deny SI and states that her statements that resulted in 302 were in the context of pain and feeling that her needs were not being met with his consistent with her history. Clonidine has decreased withdrawal symptoms and ate well this am for breakfast. Mixed reports on her ability to ambulate. PT/OT assessment pending given lives alone. She has signed releases to allow communication with her outpatient team tomorrow (Wednesday). Physical Exam Psychiatric Orientation: alert Apperance: appropriately groomed Eye Contact: + fair eye contact Motor Behavior: no abnormal motor movements Speech: normal rate/rhythm/volume of speech Affect: + depressed affect Mood: + anxious mood Thought Process: + circumstantial thought process Thought Content: reality based without delusions Suicidal Thoughts: denies suicidal thoughts Homicidal Thoughts: denies homicidal thoughts Hallucinations: no auditory hallucinations and no visual hallucinations Insight: + limited insight Judgement: + limited judgement Vital Signs (Past 24 Hours) Last Vital Signs Temp 37.1 C 06/16/20 07:09 Pulse 61 06/16/20 07:09 Resp 18 06/16/20 07:09 BP 142/80 H 06/16/20 07:09 Pulse Ox 98 06/16/20 07:09 Results & Data ([facility]) Current Inpatient Medications Current Inpatient Medications: Current Inpatient Medications Acetaminophen (Acetaminophen 500 Mg Tab) 500 mg PO QID [facility] Stop: 07/14/20 12:59 Last Admin: 06/16/20 09:29 Dose: 500 mg Documented by: Al Hydrox/Mg Hydrox/Simethicone (Aluminum/Magnesium Susp 30 Ml Udc) 30 ml PO Q6H PRN PRN Reason: Dyspepsia Stop: 07/14/20 11:14 Clonidine HCl (Clonidine Hcl 0.1 Mg Tab) 0.1 mg PO QID [facility] Stop: 06/17/20 12:59 Last Admin: 06/16/20 10:17 Dose: 0.1 mg Documented by: Dexamethasone (Dexamethasone 4 Mg Tab) 4 mg PO BID [facility] Stop: 07/14/20 20:59 Last Admin: 06/16/20 09:30 Dose: 4 mg Documented by: Duloxetine HCl (Duloxetine Hcl 60 Mg Cap) 120 mg PO QAM [facility] Stop: 07/15/20 08:59 Last Admin: 06/16/20 09:30 Dose: 120 mg Documented by: Ferrous Sulfate (Ferrous Sulfate 325 Mg Tab) 325 mg PO BIDM [facility] Stop: 07/14/20 16:59 Last Admin: 06/16/20 09:30 Dose: 325 mg Documented by: Gabapentin (Gabapentin 300 Mg Cap) 300 mg PO QID [facility] Stop: 07/14/20 12:59 Last Admin: 06/16/20 09:30 Dose: 300 mg Documented by: Ketorolac Tromethamine (Ketorolac Tromethamine 15 Mg/Ml Vial) 15 mg IV Q6H PRN PRN Reason: Pain Stop: 06/19/20 12:51 Last Admin: 06/16/20 06:18 Dose: 15 mg Documented by: Lamotrigine (Lamotrigine 25 Mg Tab) 50 mg PO BID [facility] Stop: 07/14/20 20:59 Last Admin: 06/16/20 09:30 Dose: 50 mg Documented by: Lamotrigine (Lamotrigine 100 Mg Tab) 100 mg PO BID [facility] Stop: 07/14/20 20:59 Last Admin: 06/16/20 09:31 Dose: 100 mg Documented by: Levothyroxine Sodium (Levothyroxine Sodium 50 Mcg Tablet) 50 mcg PO DAILYBB [facility] Stop: 07/15/20 06:29 Last Admin: 06/16/20 06:18 Dose: 50 mcg Documented by: Lorazepam (Lorazepam 0.5 Mg Tab) 0.5 mg PO NOW PRN PRN Reason: Agitation Stop: 07/15/20 11:59 Last Admin: 06/16/20 09:29 Dose: 0.5 mg Documented by: Losartan Potassium (Losartan Potassium 50 Mg Tab) 50 mg PO QAM [facility] Stop: 07/15/20 08:59 Last Admin: 06/16/20 09:31 Dose: 50 mg Documented by: Magnesium Hydroxide (Magnesium Hydroxide Susp 30 Ml Udc) 30 ml PO Q6H PRN PRN Reason: Constipation Stop: 07/14/20 11:14 Melatonin (Melatonin 3 Mg Tab) 3 mg PO HS PRN PRN Reason: Sleep Stop: 07/15/20 11:59 Metaxalone (Metaxalone 800 Mg Tablet) 800 mg PO QID [facility] Stop: 07/14/20 12:59 Last Admin: 06/16/20 09:30 Dose: 800 mg Documented by: Pantoprazole Sodium (Pantoprazole 40 Mg Tab) 40 mg PO BID [facility] Stop: 07/14/20 11:59 Last Admin: 06/16/20 09:31 Dose: 40 mg Documented by: Polyethylene Glycol (Polyethylene (Miralax) 17 Gm Pack) 17 gm PO DAILY PRN PRN Reason: Constipation Stop: 07/14/20 11:14 Prednisone (Prednisone 5 Mg Tab) 5 mg PO QAM [facility] Stop: 07/15/20 08:59 Last Admin: 06/15/20 08:25 Dose: 5 mg Documented by: Sennosides (Senna 8.6 Mg Tab) 8.6 mg PO HS [facility] Stop: 07/14/20 20:59 Last Admin: 06/15/20 21:49 Dose: 8.6 mg Documented by: Topiramate (Topiramate 50 Mg Tab) 150 mg PO HS [facility] Stop: 07/14/20 20:59 Last Admin: 06/15/20 21:49 Dose: 150 mg Documented by: Zolpidem Tartrate (Zolpidem Tartrate 5 Mg Tab) 5 mg PO HS PRN PRN Reason: Sleep Stop: 07/14/20 22:46 Last Admin: 06/16/20 00:00 Dose: 5 mg Documented by: Mental Health & Subst Abuse Tx Director Of Planning Name of Director Of Planning: RODRIGO Santacruz Post Discharge Appointments Primary Care Physician Name Of Family Doctor: None
[2020-06-16] MEDS: POLYETHYLENE (MIRALAX) 17 GM PACK PO PRN (15:14)
[2020-06-16] MEDS: ZOLPIDEM TARTRATE 5 MG TAB PO PRN ×2 (21:07)
[2020-06-16] MEDS: SENNA 8.6 MG TAB PO SCH (21:09)
[2020-06-16] MEDS: TOPIRAMATE 50 MG TAB PO SCH (21:10)
[2020-06-17] MEDS: LEVOTHYROXINE SODIUM 50 MCG TABLET PO SCH (05:17)
[2020-06-17] MEDS: POLYETHYLENE (MIRALAX) 17 GM PACK PO PRN (06:26)
[2020-06-17] MEDS: cloNIDine HCL 0.1 MG TAB PO SCH ×3 (08:36→22:02)
[2020-06-17] MEDS: FERROUS SULFATE 325 MG TAB PO SCH ×2 (08:36→17:36)
[2020-06-17] MEDS: dexAMETHasone 4 MG TAB PO SCH ×2 (08:37→22:03)
[2020-06-17] MEDS: LOSARTAN POTASSIUM 50 MG TAB PO SCH (08:37)
[2020-06-17] MEDS: DULoxetine HCL 60 MG CAP PO SCH (08:37)
[2020-06-17] MEDS: lamoTRIgine 100 MG TAB PO SCH ×2 (08:38→22:05)
[2020-06-17] MEDS: GABAPENTIN 300 MG CAP PO SCH ×4 (08:38→22:05)
[2020-06-17] MEDS: lamoTRIgine 25 MG TAB PO SCH ×2 (08:38→22:04)
[2020-06-17] MEDS: PANTOprazole 40 MG TAB PO SCH ×2 (08:39→22:06)
[2020-06-17] MEDS: ACETAMINOPHEN 500 MG TAB PO SCH ×4 (08:39→22:09)
[2020-06-17] MEDS: METAXALONE 800 MG TABLET PO SCH ×4 (08:39→22:07)
[2020-06-17] MEDS: KETOROLAC TROMETHAMINE 15 MG/ML VIAL IV PRN (08:40)
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
[2020-06-17] MEDS: LIDOCAINE 5% 1 PATCH TD SCH (12:05)
[2020-06-17] MEDS ORDERED: bisacodyL 10 MG SUPP PR STA (12:22)
--- NOTE | 2020-06-17 12:32 | Hospitalist Progress Note ---
Date of Service June 17, 2020 Assessment & Plan (1) Acute exacerbation of chronic low back pain: (2) Fibromyalgia: 64-year-old female who has significant past medical history of HTN, CKD stage III, fibromyalgia, chronic pain syndrome, Heart's esophagus, hyperparathyroidism, bipolar disorder, history of suicide attempt by overdose history of lumbar fusion, frozen SI joint who presents to ED secondary to suicidal ideation prior to arrival. Pt did have fall 2 months ago, also dislocation of prior L DULCE MARIA requiring reduction CT pelvis imaging reviewed from 06/13. No acute fractures She has been off prescribed narcotics and was participating in neuro feedback treatment which was successful per outpt epic notes Pain likely related to exacerbation of chronic pain syndrome in background fibromyalgia versus withdrawal from opioid content of kratom Continue dexamethasone Will try to get off ketorolac today Pain management evaluation appreciated On lidocaine Clonidine reduced to 0.05mg tid for today. Psych recommendations appreciated Avoid opioids and benzodiazepines Continue nonpharmacological means to keep her engaged. PT/OT evaluation Will continue neurofeed back for pain management on discharge Patient stated she will like to follow up with [facility] pain management Bowel regimen for constipation (3) Suicidal ideation: (4) Bipolar II disorder: (5) Borderline personality disorder: Pt presents with thoughts of harming self 2/2 to worsening pain stating if she does not receive pain medications she will kill herself, method is cutting no access to firearms She was 302 in ED Denying suicidal ideation at this time Currently on 1:1 Psychiatry recommendations noted Lamotrigine increased to 150mg bid Patient will need follow up with outpatient psychiatrist on discharge (6) HTN (hypertension): Continue losartan (7) CKD (chronic kidney disease), stage III: Baseline cr 1.0-1.2 Stable (8) Hypothyroidism: Continue levothyroxine TSH 06/13 2.24 (9) DVT prophylaxis: Ambulate Admission and Anticipated Discharge Date Admission Date: June 16, 2020 Subjective Patient seen and examined. Patient still reports generalized body pains but stated pain is better controlled today that on admission Was able to get better sleep yesterday night Has been eating better than she was at home Still reports depression but denied suicidal ideation at this time. She reports constipation Denied any other problems on review of system. Physical Exam Constitutional: + well hydrated and + thin; no acute distress Eyes: PERRL, conjunctivae normal, anicteric sclerae ENMT: external ear and nose normal, oropharynx normal Respiratory: normal respiratory effort, lungs clear to auscultation Cardiovascular: RRR, no murmur, no edema Gastrointestinal (Abdomen): normal bowel sounds, soft, nontender, no hepatosplenomegaly Musculoskeletal: no cyanosis or clubbing, extremities motor strength 5/5 Neurologic: PERRL, EOMI, accommodation nl, no face palsy, no dysarthria Psychiatric: Orientation: alert and oriented x 3 Affect: + labile affect Results & Data Results & Data ([facility]) Vital Signs (Past 12 Hours) Vital Signs Temp Pulse Resp BP Pulse Ox 06/17/20 08:15 36.9 C 56 L 20 131/72 99
--- NOTE | 2020-06-17 13:40 | XRay Report ---
LEG LENGTH STUDY CLINICAL HISTORY: Leg length discrepancy. COMPARISON STUDY: Radiographs of the left femur dated 05/24/2017. FINDINGS: 2 views from a leg length study are presented. The skeletal structures are osteopenic. No f racture is seen. A bipolar left hip arthroplasty is in near-anatomic alignment. No periprosthetic terrie ency is identified. The right leg measures 98.1 cm and the left leg measures 100.5 cm as measured fro m the femoral head to the tibial plafond. There is valgus deformity at the right knee. Degenerative c hange is present in both knees, right greater than left. Extensive thoracolumbar spinal fusion hardwa re is partially visualized. No pelvic tilt is seen. IMPRESSION: 1. Leg length discrepancy as above. 2. There is valgus deformity at the right knee. Electronically signed by: Edwin Caban M.D. 06/17/2020 1:38 PM
[2020-06-17] MEDS: DOCUSATE SODIUM/SENNA 50/8.6MG TAB PO SCH (14:03)
[2020-06-17] MEDS: MAGNESIUM HYDROXIDE SUSP 30 ML UDC PO PRN (16:07)
[2020-06-17] MEDS ORDERED: KETOROLAC TROMETHAMINE 15 MG/ML VIAL IV PRN (17:50)
[2020-06-17] MEDS: SENNA 8.6 MG TAB PO SCH (22:07)
[2020-06-17] MEDS: TOPIRAMATE 50 MG TAB PO SCH (22:08)
[2020-06-17] MEDS: ZOLPIDEM TARTRATE 5 MG TAB PO PRN (22:18)
[2020-06-18] MEDS ORDERED: ACETAMINOPHEN 1000 MG/100 ML IV IV STA (02:32)
[2020-06-18] MEDS ORDERED: oxyCODONE HCL IR 5 MG TAB (IMMEDIATE RELEASE) PO STA (04:57)
[2020-06-18] MEDS ORDERED: oxyCODONE HCL IR 5 MG TAB (IMMEDIATE RELEASE) ONE (05:10)
[2020-06-18] MEDS: LEVOTHYROXINE SODIUM 50 MCG TABLET PO SCH (06:56)
[2020-06-18] MEDS: cloNIDine HCL 0.1 MG TAB PO SCH ×3 (09:58→20:01)
[2020-06-18] MEDS: FERROUS SULFATE 325 MG TAB PO SCH ×2 (09:58→17:33)
[2020-06-18] MEDS: LOSARTAN POTASSIUM 50 MG TAB PO SCH (09:59)
[2020-06-18] MEDS: DULoxetine HCL 60 MG CAP PO SCH (10:00)
[2020-06-18] MEDS: lamoTRIgine 25 MG TAB PO SCH ×2 (10:01→20:00)
[2020-06-18] MEDS: lamoTRIgine 100 MG TAB PO SCH ×2 (10:02→20:00)
[2020-06-18] MEDS: dexAMETHasone 4 MG TAB PO SCH ×2 (10:02→20:00)
[2020-06-18] MEDS: GABAPENTIN 300 MG CAP PO SCH ×4 (10:03→19:59)
[2020-06-18] MEDS: DOCUSATE SODIUM/SENNA 50/8.6MG TAB PO SCH (10:03)
[2020-06-18] MEDS: PANTOprazole 40 MG TAB PO SCH ×2 (10:03→20:00)
[2020-06-18] MEDS: ACETAMINOPHEN 500 MG TAB PO SCH ×4 (10:04→20:00)
[2020-06-18] MEDS: METAXALONE 800 MG TABLET PO SCH ×4 (10:04→19:59)
[2020-06-18] MEDS: LIDOCAINE 5% 1 PATCH TD SCH (10:07)
--- NOTE | 2020-06-18 10:30 | Hospitalist Progress Note ---
Date of Service June 18, 2020 Assessment & Plan (1) Acute exacerbation of chronic low back pain: (2) Fibromyalgia: 64-year-old female who has significant past medical history of HTN, CKD stage III, fibromyalgia, chronic pain syndrome, Herat's esophagus, hyperparathyroidism, bipolar disorder, history of suicide attempt by overdose history of lumbar fusion, frozen SI joint who presents to ED secondary to suicidal ideation prior to arrival. Pt did have fall 2 months ago, also dislocation of prior L DULCE MARIA requiring reduction CT pelvis imaging reviewed from 06/13. No acute fractures She has been off prescribed narcotics and was participating in neuro feedback treatment which was successful per outpt epic notes Pain likely related to exacerbation of chronic pain syndrome in background fibromyalgia versus withdrawal from opioid content of kratom Currently on dexamethasone. Home prednisone on hold. Dexamethasone can be stopped and home prednisone resumed on discharge Patient occasionally got relief to iv ketorolac. Give ibuprofen prn. I discussed with patient in details about the possible side effects of NSAIDs and to only use as needed for short term. She agreed to this Pain management evaluation appreciated Continue lidocaine patch on discharge Do clonidine 0.05 for one more day and stop Psych recommendations appreciated Avoid opioids and benzodiazepines I discussed with patient about plans to avoid opioids and benzos and she agreed Continue nonpharmacological means to keep her engaged. PT/OT evaluation noted Will continue neurofeed back for pain management on discharge Patient stated she will like to follow up with [facility] pain management Patient does well having someone to talk to, hence have had a sitter. I discussed with patient to consider personal nursing home since she lives alone with her cats and always states she does not have anyone to talk to sometime CM also discussed options with her (3) Suicidal ideation: (4) Bipolar II disorder: (5) Borderline personality disorder: Pt presents with thoughts of harming self 2/2 to worsening pain stating if she does not receive pain medications she will kill herself, method is cutting no access to firearms She was 302 in ED Denying suicidal ideation at this time Psychiatry recommendations noted Lamotrigine increased to 150mg bid Patient will need follow up with outpatient psychiatrist on discharge I discussed with Dr Turner yesterday. Patient does not need inpatient psych after med optimization. Can be discharged once medically stable to follow up with psych outpatient (6) HTN (hypertension): Continue losartan (7) CKD (chronic kidney disease), stage III: Baseline cr 1.0-1.2 Stable (8) Hypothyroidism: Continue levothyroxine TSH 06/13 2.24 (9) DVT prophylaxis: Ambulate Disposition - Patient wants to stay to see how the changes in regimen will help with her pain control today. Patient should be stable for discharge in 1-2 days Admission and Anticipated Discharge Date Admission Date: June 16, 2020 Subjective Patient seen and examined Per wholesale loan processor, she was getting wildly agitated overnight for more pain meds and got one dose of oxycodone. Patient said pain is better controlled this morning. Constipation resolved. Moved her bowel overnight. Denied any other complaints Physical Exam Constitutional: + well hydrated and + thin; no acute distress Eyes: PERRL, conjunctivae normal, anicteric sclerae ENMT: external ear and nose normal, oropharynx normal Respiratory: normal respiratory effort, lungs clear to auscultation Cardiovascular: RRR, no murmur, no edema Gastrointestinal (Abdomen): normal bowel sounds, soft, nontender, no hepatosplenomegaly Musculoskeletal: no cyanosis or clubbing, extremities motor strength 5/5 Neurologic: PERRL, EOMI, accommodation nl, no face palsy, no dysarthria Psychiatric: Orientation: alert and oriented x 3 Affect: + labile affect Results & Data Results & Data ([facility]) Vital Signs (Past 12 Hours) Vital Signs Temp Pulse Pulse Resp BP Pulse Ox 06/18/20 09:57 83 125/74 06/18/20 07:29 37.3 C 64 18 134/83 96
[2020-06-18] MEDS: IBUPROFEN 200 MG TAB PO PRN ×2 (14:42→20:15)
[2020-06-18] MEDS ORDERED: ZOLPIDEM TARTRATE 10 MG TAB PO ONE (18:41)
[2020-06-18] MEDS: SENNA 8.6 MG TAB PO SCH (20:00)
[2020-06-18] MEDS: TOPIRAMATE 50 MG TAB PO SCH (20:02)
[2020-06-18] MEDS: DICLOFENAC SOD 1% GEL 100 GM TUBE EXT SCH (20:10)
[2020-06-19] MEDS: IBUPROFEN 200 MG TAB PO PRN ×2 (02:40→19:25)
[2020-06-19] MEDS: MAGNESIUM HYDROXIDE SUSP 30 ML UDC PO PRN (05:04)
[2020-06-19] MEDS: LEVOTHYROXINE SODIUM 50 MCG TABLET PO SCH (05:04)
[2020-06-19] MEDS: DICLOFENAC SOD 1% GEL 100 GM TUBE EXT SCH ×3 (08:14→21:11)
[2020-06-19] MEDS: LIDOCAINE 5% 1 PATCH TD SCH (08:17)
[2020-06-19] MEDS: FERROUS SULFATE 325 MG TAB PO SCH ×2 (09:48→16:43)
[2020-06-19] MEDS: PANTOprazole 40 MG TAB PO SCH ×2 (09:49→20:56)
[2020-06-19] MEDS: dexAMETHasone 4 MG TAB PO SCH ×2 (09:50→20:53)
[2020-06-19] MEDS: lamoTRIgine 25 MG TAB PO SCH ×2 (09:50→20:51)
[2020-06-19] MEDS: GABAPENTIN 300 MG CAP PO SCH ×4 (09:50→20:52)
[2020-06-19] MEDS: lamoTRIgine 100 MG TAB PO SCH ×2 (09:51→20:53)
[2020-06-19] MEDS: METAXALONE 800 MG TABLET PO SCH ×4 (09:51→20:54)
[2020-06-19] MEDS: ACETAMINOPHEN 500 MG TAB PO SCH ×4 (09:51→20:55)
[2020-06-19] MEDS: DULoxetine HCL 60 MG CAP PO SCH (09:52)
[2020-06-19] MEDS: DOCUSATE SODIUM/SENNA 50/8.6MG TAB PO SCH (09:53)
[2020-06-19] MEDS: cloNIDine HCL 0.1 MG TAB PO SCH (09:55)
[2020-06-19] MEDS: LOSARTAN POTASSIUM 50 MG TAB PO SCH (09:55)
[2020-06-19 14:26] LABS: Lyme Ab IgG w/WB Rflx Negative (Negative); Lyme Ab IgM w/WB Rflx Negative (Negative)
--- NOTE | 2020-06-19 16:48 | Ultrasound Report ---
ULTRASOUND SOFT TISSUES NECK CLINICAL HISTORY: Cervical lymphadenopathy. COMPARISON STUDY: CT of the cervical spine dated 09/10/2016. FINDINGS: Real-time, grayscale, and color flow sonography of the soft tissues of the neck is performe d to assess for cervical lymphadenopathy. No pathologically enlarged cervical lymph nodes are identif ied. There are benign-appearing cervical lymph nodes which are not pathologically enlarged. The large st cervical chain node is seen on the right and measures 1.3 x 0.4 x 0.8 cm. These nodes maintain nor mal fatty case. A 7 mm colloid cyst is incidentally noted in the right lobe of the thyroid gland. IMPRESSION: No cervical lymphadenopathy is identified. Electronically signed by: Edwin Caban M.D. 06/19/2020 4:46 PM
--- NOTE | 2020-06-19 20:44 | Hospitalist Progress Note ---
Date of Service June 19, 2020 Assessment & Plan (1) Acute exacerbation of chronic low back pain: (2) Fibromyalgia: Patient is a 64 yr female with H/O HTN, CKD stage III, fibromyalgia, chronic pain syndrome, Heart's esophagus, hyperparathyroidism, bipolar disorder, history of suicide attempt by overdose history of lumbar fusion, frozen SI joint who presents to ED secondary to suicidal ideation prior to arrival. Chronic back pain Fibromyalgia Chronic pain syndrome H/O fall 2 months ago, also dislocation of prior L DULCE MARIA requiring reduction CT pelvis showed No acute fractures On Neuro feedback treatment Also could have Opioid withdrawal--Takes kratom Currently on dexamethasone Avoid opiates/Benzos Also on Cymbalta, lidocaine, Neurontin, ibuprofen Pain management evaluation appreciated Clonidine discontinued Follows with chiropractor and neuro feedback as outpatient Patient prefers to follow-up with [facility] pain management (3) Suicidal ideation: (4) Bipolar II disorder: (5) Borderline personality disorder: As per Prior Hospitalist Pt presents with thoughts of harming self 2/2 to worsening pain stating if she does not receive pain medications she will kill herself, method is cutting no access to firearms 302 was discontinued Currently denies suicidal ideation Appreciate psychiatry input Lamotrigine increased to 150mg bid Needs follow-up with psychiatry upon discharge Does not meet inpatient psychiatric management as per psychiatry (6) HTN (hypertension): Continue losartan (7) CKD (chronic kidney disease), stage III: Baseline cr 1.0-1.2 Stable (8) Hypothyroidism: Continue levothyroxine TSH 06/13 2.24 (9) DVT prophylaxis: Ambulate Disposition Case management to help with discharge planning Admission and Anticipated Discharge Date Admission Date: June 16, 2020 Subjective Patient is seen and examined at bedside States feeling weak and tired today Reports chronic back pain Anxious and tearful during my encounter Offers no other complaints Sitter at bedside Review of Systems Review of Systems: All systems reviewed & are unremarkable except as noted in HPI & below Physical Exam Physical Exam: Physical Exam: Vitals signs as noted above General Appearance:Thin, Frail, no apparent distress Head: normocephalic, Atraumatic Eyes: normal inspection, EOMI Neck: supple, Trachea midline Respiratory/Chest: Normal breath sounds, CTA, No accessory muscle use Cardiovascular: S1, S2, No murmur Abdomen/GI:Soft, Non tender, Bowel sounds present Extremities/Musculoskelatal:normal inspection, no edema Neurologic/Psych:AAOX3, grossly no focal neurological deficits Skin: normal color, warm Results & Data Results & Data ([facility]) Vital Signs (Past 12 Hours) Vital Signs Temp Pulse Resp BP Pulse Ox 06/19/20 15:14 36.9 C 64 16 104/70 98 06/19/20 13:18 67 128/88 06/19/20 09:47 37.1 C 84 18 121/75 98
[2020-06-19] MEDS: TOPIRAMATE 50 MG TAB PO SCH (20:54)
[2020-06-19] MEDS: SENNA 8.6 MG TAB PO SCH (20:57)
[2020-06-20] MEDS: IBUPROFEN 200 MG TAB PO PRN (00:47)
[2020-06-20] MEDS: ZOLPIDEM TARTRATE 5 MG TAB PO PRN (00:48)
[2020-06-20] MEDS: LEVOTHYROXINE SODIUM 50 MCG TABLET PO SCH (06:43)
[2020-06-20] MEDS: LIDOCAINE 5% 1 PATCH TD SCH (07:55)
[2020-06-20] MEDS: FERROUS SULFATE 325 MG TAB PO SCH ×2 (09:04→18:07)
[2020-06-20] MEDS: DULoxetine HCL 60 MG CAP PO SCH (09:05)
[2020-06-20] MEDS: dexAMETHasone 4 MG TAB PO SCH (09:05)
[2020-06-20] MEDS: lamoTRIgine 100 MG TAB PO SCH (09:06)
[2020-06-20] MEDS: lamoTRIgine 25 MG TAB PO SCH (09:06)
[2020-06-20] MEDS: PANTOprazole 40 MG TAB PO SCH (09:07)
[2020-06-20] MEDS: GABAPENTIN 300 MG CAP PO SCH ×3 (09:07→18:07)
[2020-06-20] MEDS: DOCUSATE SODIUM/SENNA 50/8.6MG TAB PO SCH (09:07)
[2020-06-20] MEDS: METAXALONE 800 MG TABLET PO SCH ×3 (09:08→18:08)
[2020-06-20] MEDS: ACETAMINOPHEN 500 MG TAB PO SCH ×3 (09:08→18:08)
[2020-06-20] MEDS: LOSARTAN POTASSIUM 50 MG TAB PO SCH (09:10)
[2020-06-20] MEDS: DICLOFENAC SOD 1% GEL 100 GM TUBE EXT SCH ×2 (09:11→14:11)
--- NOTE | 2020-06-20 15:24 | Hospitalist Progress Note ---
Date of Service June 20, 2020 Assessment & Plan (1) Acute exacerbation of chronic low back pain: (2) Fibromyalgia: Patient is a 64 yr female with H/O HTN, CKD stage III, fibromyalgia, chronic pain syndrome, Heart's esophagus, hyperparathyroidism, bipolar disorder, history of suicide attempt by overdose history of lumbar fusion, frozen SI joint who presents to ED secondary to suicidal ideation prior to arrival. Chronic back pain Fibromyalgia Chronic pain syndrome H/O fall 2 months ago, also dislocation of prior L DULCE MARIA requiring reduction CT pelvis showed No acute fractures Lyme Screen: Negative On Neuro feedback treatment Also could have Opioid withdrawal--Takes kratom --advised to stop taking this medication Currently on dexamethasone Avoid opiates/Benzos Also on Cymbalta, lidocaine, Neurontin, ibuprofen Pain management evaluation appreciated Clonidine discontinued Follows with chiropractor and neuro feedback as outpatient Patient prefers to follow-up with [facility] pain management Continue current management (3) Suicidal ideation: (4) Bipolar II disorder: (5) Borderline personality disorder: As per Prior Hospitalist Pt presents with thoughts of harming self 2/2 to worsening pain stating if she does not receive pain medications she will kill herself, method is cutting no access to firearms 302 was discontinued Currently denies suicidal ideation Appreciate psychiatry input Lamotrigine increased to 150mg bid Does not meet inpatient psychiatric management as per psychiatry Needs follow-up with psychiatry upon discharge Concern for cervical lymphadenopathy Ruled out Head/Neck USD:No cervical lymphadenopathy is identified. Advised to follow-up with ENT as outpatient (6) HTN (hypertension): Continue losartan (7) CKD (chronic kidney disease), stage III: Baseline cr 1.0-1.2 Stable (8) Hypothyroidism: Continue levothyroxine TSH 06/13 2.24 (9) DVT prophylaxis: Ambulate Disposition Plan to discharge home Admission and Anticipated Discharge Date Admission Date: June 16, 2020 Subjective Patient is seen and examined at bedside States feeling better today but feels anxious to go home Requested psych to reevaluate patient today No new complaints Has chronic back pain which is controlled Denies suicidal ideation today Sitter at bedside Review of Systems Review of Systems: All systems reviewed & are unremarkable except as noted in HPI & below Physical Exam 2 Physical Exam: Physical Exam: Vitals signs as noted above General Appearance:Thin, Frail, no apparent distress Head: normocephalic, Atraumatic Eyes: normal inspection, EOMI Neck: supple, Trachea midline Respiratory/Chest: Normal breath sounds, CTA, No accessory muscle use Cardiovascular: S1, S2, No murmur Abdomen/GI:Soft, Non tender, Bowel sounds present Extremities/Musculoskelatal:normal inspection, no edema Neurologic/Psych:AAOX3, grossly no focal neurological deficits Skin: normal color, warm Results & Data Results & Data ([facility]) Vital Signs (Past 12 Hours) Vital Signs Temp Pulse Resp BP BP Pulse Ox 06/20/20 09:10 127/78 06/20/20 07:16 37.3 C 62 15 136/84 99
--- NOTE | 2020-06-20 15:44 | Discharge Summary ---
Date of Service June 20, 2020 Admission HPI Per Admitting Provider This is a 64-year-old female who has significant past medical history of HTN, CKD stage III, fibromyalgia, chronic pain syndrome, Heart's esophagus, hyperparathyroidism, bipolar disorder, history of suicide attempt by overdose history of lumbar fusion, frozen SI joint who presents to ED secondary to suicidal ideation prior to arrival. Of significance patient was seen and evaluated in ED 06/13/2020 for chronic pelvic pain. She received Toradol in ED and was discharged home on oxycodone. Lab work at that time was unremarkable except for sodium of 135. Her urinalysis was also consistent with marijuana but otherwise negative. She presented back to ED today 06/14 secondary to worsened acute on chronic pain stating that if she did not receive pain medication she was going to kill herself. She was 302 by ER physician and felt to be a threat to herself. Currently in hospital she does not have any plan to kill herself, but states if she was discharged she would cut herself from head to toe. She denies having any firearms at home. She admits to having chronic pain and fibromyalgia and feels has been exacerbated secondary to the weather. She states she is very weather sensitive. She did have a fall 2 months ago but otherwise no trauma. She states she lost her balance secondary to her cat. She was seen and evaluated in the ED. At that time she sustained left hip dislocation. This was reduced. She states tramadol had helped in the past, but currently was not helping every 6 hours. She then was taking it every 4 hours despite recommendations and it still was not helping. She states she has had a lot of psychological trauma in the past and is requesting help for this. She complains of PTSD. She was followed by pain management, but is currently no longer following. She also had lumbar surgical procedure by Dr. Priest who she is also not following due to her personal preference. She does see a chiropractor which has significantly helped her pain. She also admits to being on medical marijuana. She did undergo pelvis CT yesterday which revealed no acute fracture or subluxation, noted inferior lumbar spine posterior interbody rosalia and screw fusion and left DULCE MARIA. Chronic fracture deformity at S1-S2. No other acute abnormalities. In the outpatient setting she has been following with neuro feedback treatment which had improved her pain significantly. However ever since fall 2 months ago it appears she has discontinued this treatment. Admission Exam Per Admitting Provider Physical Exam Physical Exam: Constitutional: WD/WN, vitals as above, NAD, sitting up in bed, answers questions appropriately however is very tangential in conversation, constantly discussing her unhappiness with providers Head: Normocephalic, Atraumatic Eyes: PERRL, conjunctivae normal, anicteric sclerae ENMT: external ear and nose normal, oropharynx normal Neck: trachea midline, no thyromegaly normal visual inspection Respiratory: normal respiratory effort, lungs clear to auscultation, no wheeze, rales, rhonchi. Normal insp/exp effort, no accessory muscle use Cardiovascular: RRR, no murmur, no edema Vessels: no JVD or carotid bruit Chest: normal inspection of chest Abdomen: normal bowel sounds, soft, nontender, no hepatosplenomegaly Musculoskeletal: no cyanosis or clubbing, active range of motion x4. She refused to participate in strength testing secondary to "pain all over." Skin: no rashes, warm and dry normal turgor Neurologic: PERRL, EOMI, accommodation nl, no face palsy, no dysarthria CN's II-XI intact bilaterally and moves all extremities Psychiatric: A+Ox3, euthymic affect : deferred Principal Diagnosis Fibromyalgia Chronic pain syndrome Bipolar disorder Leg length discrepancy due to valgus deformity of right knee Discharge Data Allergies Allergy/AdvReac Type Severity Reaction Status Date / Time cyclobenzaprine Allergy Intermediate RASH AND Verified 06/14/20 03:24 SWELLING fentanyl Allergy Intermediate MAJOR FEET Verified 06/14/20 03:24 SWELLING oxcarbazepine Allergy Unknown UNKNOWN - Verified 06/14/20 03:24 PT DOESN'T REMEMBER risperidone AdvReac Intermediate exhaustion Verified 06/14/20 03:24 clonazepam AdvReac Mild nausea Verified 06/14/20 03:24 Consultations 06/14/20 08:10 ED Decision to Admit Stat 06/14/20 08:11 Consult Pain Management Routine 06/14/20 11:15 Consult Case Management - Discharge Planning Routine Consult Psychiatry Routine 06/14/20 14:46 Consult Behavioral Health Liaison Routine Procedures Performed Pelvic CT: 1. No acute fracture or subluxation. 2. Demineralized appearance of the bones with degenerative changes as above. 3. Limited exam secondary to streak artifact from inferior lumbar spine posterior interbody rosalia and screw fusion and left hip total joint arthroplasty. 4. Unchanged alignment of the chronic fracture deformity at S1-S2. Leg Length Series: FINDINGS: 2 views from a leg length study are presented. The skeletal structures are osteopenic. No fracture is seen. A bipolar left hip arthroplasty is in near- anatomic alignment. No periprosthetic lucency is identified. The right leg measures 98.1 cm and the left leg measures 100.5 cm as measured from the femoral head to the tibial plafond. There is valgus deformity at the right knee. Degenerative change is present in both knees, right greater than left. Extensive thoracolumbar spinal fusion hardware is partially visualized. No pelvic tilt is seen. Head/Neck USD: No cervical lymphadenopathy is identified. Ordered Studies 06/19/20 13:42 US soft tissue head and neck Routine Hospital Course (1) Acute exacerbation of chronic low back pain: (2) Fibromyalgia: Patient is a 64 yr female with H/O HTN, CKD stage III, fibromyalgia, chronic pain syndrome, Heart's esophagus, hyperparathyroidism, bipolar disorder, history of suicide attempt by overdose history of lumbar fusion, frozen SI joint who presents to ED secondary to suicidal ideation prior to arrival. Chronic back pain Fibromyalgia Chronic pain syndrome H/O fall 2 months ago, also dislocation of prior L DULCE MARIA requiring reduction CT pelvis showed No acute fractures Lyme Screen: Negative On Neuro feedback treatment Also could have Opioid withdrawal--Takes kratom --advised to stop taking this medication Currently on dexamethasone Avoid opiates/Benzos Also on Cymbalta, lidocaine, Neurontin, ibuprofen Pain management evaluation appreciated Clonidine discontinued Follows with chiropractor and neuro feedback as outpatient Patient prefers to follow-up with [facility] pain management Continue current management (3) Suicidal ideation: (4) Bipolar II disorder: (5) Borderline personality disorder: As per Prior Hospitalist Pt presents with thoughts of harming self 2/2 to worsening pain stating if she does not receive pain medications she will kill herself, method is cutting no access to firearms 302 was discontinued Currently denies suicidal ideation Appreciate psychiatry input Lamotrigine increased to 150mg bid Does not meet inpatient psychiatric management as per psychiatry Needs follow-up with psychiatry upon discharge Concern for cervical lymphadenopathy Ruled out Head/Neck USD:No cervical lymphadenopathy is identified. Advised to follow-up with ENT as outpatient Leg length discrepancy due to valgus deformity of right knee Appreciate pain management input Continue Orthotic boot Follow up with Orthopedics as outpatient (6) HTN (hypertension): Continue losartan (7) CKD (chronic kidney disease), stage III: Baseline cr 1.0-1.2 Stable (8) Hypothyroidism: Continue levothyroxine TSH 06/13 2.24 (9) DVT prophylaxis: Ambulate Disposition Plan to discharge home Patient prefers today change primary care physician upon discharge Total Time Total Time Spent Total Time Spent (In Minutes): 45 minutes Total Time Includes: Examination of the Patient, Discharge Planning, Medication Reconciliation, Communication With Other Providers and Other Discharge Plan Discharge Items Patient Disposition: Home - Self-Care Reason For Visit: SUICIDAL IDEATIONS, CHRONIC PAIN Discharge Diagnosis: Fibromyalgia Chronic pain syndrome Bipolar disorder Leg length discrepancy due to valgus deformity of right knee Activity: Per Instructions section Exercise/Sports: Gradually increase as tolerated Non-emergency contact: Primary Care Provider, Psychiatrist and Pain Management Call non-emergency contact if: you have any medication questions, your symptoms worsen, your pain is not controlled and you have a fever Follow-up/Referrals: Ramya Linda [Other] - 06/25/20 3:00 pm (manager government Ramya Linda Tuesdays at 3pm) Carmen Gerber [Other] - 06/20/20 10:00 am (Therapy Carmen Gerber 06/20 10:00am) Mahendra Gudino DO [Physician] - 06/24/20 11:30 am Karine Young DO [Outside Practitioners] - 07/25/20 8:30 am (Psychiatry appointment with Dr Karine Young 07/25/2020 at 8:30am) Diet: Heart Healthy Addtl Attending Provider Instructions: Follow-up with your primary care physician Dr. Mahendra Gudino on June 24, 2020 at 11:30 AM as scheduled Follow-up with your psychiatrist Dr. Karine Young on July 25, 2020 at 8:30 AM as scheduled Follow-up with your pain management as needed Follow-up with your orthopedic surgeon as needed for further management of your right knee deformity. Seek immediate medical attention if your symptoms reoccur or worsen Pending Studies at Discharge: No Stand-Alone Forms: My [employer], Smoking Cessation Medications and DC Order Prescriptions: New melatonin 3 mg Tablet 3 mg PO HS PRN (Reason: sleep) Qty: 30 RF: 0 lidocaine 5 % Adhesive Patch,Medicated 1 patch transdermal QAM Qty: 30 RF: 0 diclofenac sodium [Voltaren] 1 % Gel 2 g EXT TID Qty: 1 RF: 0 lamotrigine 150 mg tablet 150 mg PO BID Qty: 60 RF: 0 Continued prednisone 5 mg Tablet 5 mg PO QAM RF: 0 levothyroxine [Synthroid] 50 mcg Tablet 50 mcg PO DAILYBB Qty: 1 RF: 0 ferrous sulfate 325 mg (65 mg iron) Tablet,Delayed Release (Dr/Ec) 325 mg PO BIDM Qty: 1 RF: 0 acetaminophen [Tylenol Extra Strength] 500 mg Tablet 1,000 mg PO Q4H MDD 6 tablets per day PRN (Reason: Pain) RF: 0 ondansetron 8 mg tablet,disintegrating 8 mg PO Q8H PRN (Reason: Nausea) RF: 0 omeprazole 20 mg capsule,delayed release(DR/EC) 20 mg PO BID RF: 0 losartan 100 mg tablet 50 mg PO QAM RF: 0 metaxalone 800 mg tablet 800 mg PO QID RF: 0 sennosides [Senokot] 8.6 mg tablet 8.6 mg PO HS Qty: 30 RF: 0 gabapentin 300 mg capsule 300 mg PO QID 30 Days Qty: 120 RF: 0 topiramate 100 mg tablet 150 mg PO HS Qty: 30 RF: 0 duloxetine 60 mg Capsule,Delayed Release(Dr/Ec) 120 mg PO QAM Qty: 60 RF: 0 Discontinued lamotrigine 100 mg Tablet 50 mg PO BID RF: 0 Discharge Orders: Discharge Order (Routine); Ordered 06/20/20 Ordered By: Anselmo Anderson Admission Data Admit Date/Time: 06/16/20 12:56 Attending Provider: Anselmo Anderson Admit Provider: Cynthia Gonzalez I. Primary Care Provider: Arpit Osman Other Providers: Angeli Turner ; Debo Hewitt
[2020-06-20] MEDS ORDERED: DESTROY THIS MEDICATION ONE (18:45)
== END 2020-06-20 19:38 | disposition home or self-care (01) ==
LOC: 3W 02:54 → ED 02:54 → 3W 10:48 → SUATTDRO 06-16 12:56

== ENCOUNTER 2022-01-04 11:13 | Inpatient (IN) ==
[2022-01-04] MEDS ORDERED: SODIUM CHLORIDE 0.9% 500 ML IV STA (11:26)
[2022-01-04] MEDS ORDERED: ONDANSETRON INJ 2 MG/ML 2 ML VIAL IV STA (11:26)
--- NOTE | 2022-01-04 11:31 | Emergency Department Note ---
Impression & Plan Closed fracture of tibial plateau, Fracture of proximal end of fibula, Distal radius fracture, right ED Provider Note NAME: GERA RONDON AGE: 66 SEX: F : 1955 ARRIVES VIA: Ambulance INFORMANT: Patient, ED PROVIDER(S): Ever Trevino DO CHIEF COMPLAINT: Knee injury HPI: The patient is a 66-year-old female with a history of chronic pain as well as fibromyalgia who presented to the emergency department for an evaluation after a fall. She states that she slipped while she was going down some steps. She put an axial load onto her right lower extremity. She planted her right foot first but most of her injury occurred on her right knee. She does have a history of knee problems in the past. She also fell again later because her balance was off injuring her right wrist. She denies having any oral anticoagul ation. She denies striking her head. She has no neck pain. She does have chronic back pain which she states is not new for her. She denies having any fever or cough. She has significant amount of ecchymosis. She is been trying her medications at home without relief of her pain. The patient has not been seen by her family doctor for the symptoms as is injury initially occurred on the weekend. ROS: See above HPI for pertinent positives & negatives. A total of 10 systems reviewed and were otherwise negative. PAST MEDICAL HISTORY: See Below PAST SURGICAL HISTORY: See Below FAMILY HISTORY: See Below SOCIAL HISTORY: See Below HOME MEDICATIONS: See Below ALLERGIES: See Below VITALS: See Below PHYSICAL EXAMINATION: GENERAL: Patient is awake alert in no acute distress patient is resting comfortably and showing no signs of anxiety EYES: The conjunctivae are clear. The pupils are round and reactive. EARS, NOSE, MOUTH AND THROAT: The nose is without any evidence of any deformity. NECK: The neck is nontender and supple. RESPIRATORY: Normal respiratory effort is noted there is no evidence of wheezing rhonchi or rales CARDIOVASCULAR: Regular rate and rhythm noted there no murmurs rubs or gallops normal S1 normal S2. GASTROINTESTINAL: The abdomen is soft. Abdomen is nontender. MUSCULOSKELETAL/EXTREMITIES: There is significant swelling ecchymosis and e ffusion on the right knee. There is significant decreased range of motion. The patient is resistant to any range of motion testing at this time. She does also have palpable tenderness over the medial aspect of the right ankle but no deformity. She has pain with range of motion testing of the right hip but no shortening or deformity. She also has swelling and ecchymosis over the right wrist. There is no pain with range of motion testing of the right elbow. There is no tenderness over the right hand. SKIN: There is no obvious evidence of any rash. Trace pedal edema was noted bilaterally. Venous stasis changes were noted. NEUROLOGIC: Patient is awake alert and oriented x3 MEDICAL DECISION MAKING: The patient is a 66-year-old female who presented to the emergency department for an evaluation after an injury. She suffered an injury yesterday when she had a misstep going down some stairs. She planted her right leg and suffered an injury to her right knee as well as her right wrist. The patient was found to have a proximal tibial fracture as well as a tibial plateau fracture and a right wrist fracture. The patient was treated with pain medication. She was placed in the splints. Given her living situation I do not feel the patient would do well if she was discharged home. I will discuss her case with the on-call hospitalist group. Triage Nursing notes reviewed. Prior medical records reviewed Vital Signs: reviewed and remarkable for elevated blood pressure. Differential diagnosis: Fracture, dislocation, contusion, intra-abdominal, pneumothorax, intrathoracic, intracranial, neurologic, compartment syndrome, rhabdomyolysis, as well as other pathologies. ER treatment provided: See below Diagnostics interpreted by me: ECG: none Cardiac Monitoring: An order was placed for continuous cardiac monitoring. The monitor shows a rate of 83 bpm with sinus rhythm. Laboratory studies: As stated above and show below. Imaging studies: See below Consultation(s): I discussed this case with Rosalinda who is on-call for the [facility] hospitalist group. Past Med/Surg History Medical History Bipolar II disorder Psychiatry and Neurofeedback Borderline personality disorder C. difficile diarrhea Chronic pain CKD (chronic kidney disease), stage III Drug overdose Fibromyalgia Hip dislocation, left (~03/2020) Hypertension Hypokalemia Hyponatremia Hypothyroidism IBS (irritable bowel syndrome) Leg length discrepancy Polypharmacy Pressure injury of sacral region, stage 1 Recurrent Clostridioides difficile diarrhea Surgical History H/O carpal tunnel repair H/O inguinal hernia repair S/P cataract surgery Status post total hip replacement, left Family History Father Lung cancer associated cerebellar ataxia Macular degeneration Mother Pacemaker Other Cancer Heart disease Hypertension Lung disease Social History Smoking Status: Former smoker Tobacco Type: Cigarettes Second Hand Exposure: No; Hx Alcohol Use: No Hx Substance Use: Yes Last Used Substance: Days (ago) Last Used Substance Other:: Atleast 2 days ago for Kratom. Marijuana more then 24hrs. Substance Use Type Other:: Kratom, medical marijuna Preferred Language: Honduran Communication Ability: Effective Visual Impairment: No Limitations Hearing Ability: Normal Housekeeping Associate Required: No Beliefs That Will Affect Care: None marital status: / Current Living Situation: Alone Current Living Situation Comment: Lives alone in a multiple level house current occupational status: retired Feels Safe at Home: Yes Assistive Devices: Cane and Glasses Allergies Allergies Allergy/AdvReac Type Severity Reaction Status Date / Time cyclobenzaprine Allergy Intermediate RASH AND Verified 06/26/20 11:32 SWELLING fentanyl Allergy Intermediate MAJOR FEET Verified 06/26/20 11:32 SWELLING oxcarbazepine Allergy Unknown UNKNOWN - Verified 06/26/20 11:32 PT DOESN'T REMEMBER risperidone AdvReac Intermediate exhaustion Verified 06/26/20 11:32 clonazepam AdvReac Mild nausea Verified 06/26/20 11:32 Home Meds Home Medications Medication Instructions Recorded Confirmed prednisone 5 mg tablet 5 mg PO QAM 08/18/18 06/26/20 acetaminophen 500 mg tablet 1,000 mg PO Q4H PRN MDD 6 tablets 03/20/20 06/26/20 (Tylenol Extra Strength) per day metaxalone 800 mg tablet 800 mg PO QID 03/20/20 06/26/20 omeprazole 20 mg capsule,delayed 20 mg PO BID 03/20/20 06/26/20 release ondansetron 8 mg disintegrating 8 mg PO Q8H PRN 03/20/20 06/26/20 tablet lidocaine 4 % topical patch 1 patch TOPICAL DAILY PRN 06/26/20 06/26/20 (Salonpas (lidocaine)) losartan 50 mg tablet 50 mg PO QAM tab 06/26/20 06/26/20 Previous Rx's Medication Instructions Recorded ferrous sulfate 325 mg (65 mg 325 mg PO BIDM #1 tab 12/23/19 iron) tablet,delayed release levothyroxine 50 mcg tablet 50 mcg PO DAILYBB #1 tab 12/23/19 (Synthroid) diclofenac sodium 1 % topical gel 2 g EXT TID #1 tube 06/20/20 (Voltaren) duloxetine 60 mg capsule,delayed 120 mg PO QAM #60 cap 06/20/20 release gabapentin 300 mg capsule 300 mg PO QID 30 Days #120 cap 06/20/20 lamotrigine 150 mg tablet 150 mg PO BID #60 tab 06/20/20 melatonin 3 mg tablet 3 mg PO HS PRN #30 tab 06/20/20 topiramate 100 mg tablet 150 mg PO HS #30 tab 06/20/20 Results & Data (ED) Vital Signs Vital Signs - 24 hr 01/04/22 11:07 01/04/22 11:46 Temperature 37.0 C Temperature Source Oral Pulse Rate 83 Pulse Rate [Finger] 83 Respiratory Rate 20 Blood Pressure 142/86 H Blood Pressure [Left Arm] 142/86 H Blood Pressure Mean 104 Blood Pressure Mean [Left Arm] 104 Pulse Oximetry 98 98 Oxygen Delivery Method Room Air Sepsis Recent Fever Within 48 Hours No Sepsis New/Unexplained Change in Mental Status No Sepsis Action Taken by Nursing No Action Required Home Medications Current Medication List: was personally reviewed by me Laboratory Data Attestation: I reviewed the patient's lab results. Result diagrams: 01/04/22 11:38 01/04/22 11:38 Lab Results 01/04/22 01/04/22 01/04/22 Range/Units 11:07 11:38 11:38 WBC 7.62 (4.8-10.8) K/uL RBC 3.91 L (4.2-5.4) M/uL Hgb 12.8 (12.0-16.0) g/dL Hct 38.0 (37-47) % MCV 97.2 (80-100) fL MCH 32.7 (25-34) pg MCHC 33.7 (32-36) g/dL RDW Std Deviation 46.2 (36.4-46.3) fL RDW Coeff of Irving 13.1 (11.5-14.5) % Plt Count 205 (130-400) K/uL MPV 9.7 (7.4-10.4) fL Immature Gran % (Auto) 0.5 % Neut % (Auto) 78.3 % Lymph % (Auto) 12.5 % Marion % (Auto) 7.6 % Eos % (Auto) 0.7 % Baso % (Auto) 0.4 % Neut # (Auto) 5.97 (1.4-6.5) K/uL Lymph # (Auto) 0.95 L (1.2-3.4) K/uL Marion # (Auto) 0.58 (0.11-0.59) K/uL Eos # (Auto) 0.05 (0-0.5) K/uL Baso # (Auto) 0.03 (0-0.2) K/uL Immature Gran # (Auto) 0.04 H (0.00-0.02) K/uL Sodium 139 (136-145) mmol/L Potassium 3.7 (3.5-5.1) mmol/L Chloride 109 H (98-107) mmol/L Carbon Dioxide 25 (21-32) mmol/L Anion Gap 5 (3-11) BUN 12 (6-23) mg/dl Creatinine 0.89 (0.6-1.2) mg/dl Est Cr Clr Drug Dosing 60.8 ml/min Est GFR ( Amer) 77.7 ml/min Est GFR (Non-Af Amer) 67.1 ml/min BUN/Creatinine Ratio 13.5 (10-20) Glucose 76 (70-99(Fasting)) mg/dl Calcium 9.4 (8.5-10.1) mg/dl Total Bilirubin 0.8 (0.2-1.0) mg/dl AST 146 H (13-39) U/L ALT 305 H (7-52) U/L Alkaline Phosphatase 56 (34-104) U/L Total Protein 6.4 (6.0-8.3) gm/dl Albumin 4.0 (3.4-5.0) gm/dl Globulin 2.4 L (2.5-4.0) gm/dl Albumin/Globulin Ratio 1.7 (0.9-2) Lipase 27 (11-82) U/L SARS-CoV-2, RNA, NAAT NEGATIVE (NEGATIVE) Administered Medications Morphine Sulfate (Morphine Sulfate 4 Mg/Ml 1 Ml Carp\Vial) 4 mg IV Q15M PRN PRN Reason: Pain Stop: 01/18/22 11:25 Last Admin: 01/04/22 12:33 Dose: 4 mg Documented by: [id number] Admin: 01/04/22 11:41 Dose: 4 mg Documented by: [id number] Discontinued Medications Sodium Chloride (Nss) 500 mls @ 999 mls/hr IV .Q31M STA Stop: 01/04/22 11:56 Last Infusion: 01/04/22 12:38 Dose: 0 mls/hr Documented by: [id number] Admin: 01/04/22 11:41 Dose: 999 mls/hr Documented by: [id number] Ondansetron HCl (Ondansetron Inj 2 Mg/Ml 2 Ml Vial) 4 mg IV NOW STA Stop: 01/04/22 11:27 Last Admin: 01/04/22 11:41 Dose: 4 mg Documented by: [id number] Imaging Data Radiologist's Impression: Ankle X-Ray 01/04/22 11:26 XR ankle RT min 3V routine CLINICAL HISTORY: fall. Ankle pain COMPARISON STUDY: No previous studies for comparison. TECHNIQUE: 3 right ankle views FINDINGS: Bones: The bones are osteopenic. There is no evidence for an acute fracture or dislocation. There is no lytic or blastic lesion. Joints: The joint spaces are maintained. The bones are in anatomic alignment. Soft tissues: There is no focal soft tissue abnormality. There is no radiopaque foreign body. IMPRESSION: 1. No acute osseous pathology. ACT 112: Negative or not required by law. Electronically signed by: Baldev Baltazar M.D. 01/04/2022 12:06 PM Chest X-Ray 01/04/22 11:26 XR chest 1V portable CLINICAL HISTORY: fall. Evaluate cardiopulmonary status COMPARISON STUDY: 12/16/2019 TECHNIQUE: 1 view of the chest FINDINGS: Single frontal view of the chest demonstrates the cardiomediastinal silhouette to be within normal limits. The lungs are clear of alveolar opacities. There is no evidence for pleural effusion. There is no evidence for vascular congestion. There is no acute osseous pathology. IMPRESSION: 1. No acute cardiopulmonary disease. ACT 112: Negative or not required by law. Electronically signed by: Baldev Baltazar M.D. 01/04/2022 12:05 PM Hip/Pelvis X-Ray 01/04/22 11:26 XR hip RT 2V w pelvis CLINICAL HISTORY: fall. Right hip pain COMPARISON STUDY: 03/20/2020 TECHNIQUE: AP pelvis and 2 right hip views FINDINGS: Bones: The bones are osteopenic. There is no evidence for an acute fracture or dislocation. There is no lytic or blastic lesion. Joints: The right hip joint space is maintained. Stable total hip replacement is present on the left. The bones are in anatomic alignment. Soft tissues: There is no focal soft tissue abnormality. There is no radiopaque foreign body. IMPRESSION: 1. No acute osseous pathology. 2. Osteopenia and stable left total hip replacement. ACT 112: Negative or not required by law. Electronically signed by: Baldev Baltazar M.D. 01/04/2022 12:12 PM Knee X-Ray 01/04/22 11:26 XR knee RT 1 or 2V routine CLINICAL HISTORY: fall. The pain COMPARISON STUDY: No previous studies for comparison. TECHNIQUE: 2 right knee views FINDINGS: Bones: Bones are osteopenic. There is an impacted fracture to the plateau extending from medial to lateral involving the tibial metaphysis. Additional mildly displaced fracture of the neck of the fibula is present. There is no lytic or blastic lesion. Joints: There is marked narrowing of the lateral joint compartment and mild narrowing of the medial joint compartment and patellofemoral joint. There is a large intra-articular effusion. The bones are in anatomic alignment. Soft tissues: There is no focal soft tissue abnormality. There is no radiopaque foreign body. IMPRESSION: 1. Impacted, nondisplaced fracture of the metaphysis of the tibial plateau 2. Fracture of the fibular neck. 3. Large intra-articular effusion. 4. Osteoarthritis ACT 112: Negative or not required by law. Electronically signed by: Baldev Baltazar M.D. 01/04/2022 12:09 PM Wrist X-Ray 01/04/22 11:26 XR wrist RT min 3V routine CLINICAL HISTORY: fall. Wrist pain COMPARISON STUDY: No previous studies for comparison. TECHNIQUE: 4 right wrist views FINDINGS: Bones: The bones are osteopenic. There is an impacted fracture present involving the metaphysis of the distal radius with cortical overriding present. The ulna appears intact. There is no lytic or blastic lesion. Joints: The joint spaces are maintained. The bones are in anatomic alignment. Soft tissues: There is soft tissue swelling surrounding the wrist. There is no radiopaque foreign body. IMPRESSION: 1. Osteopenia with an impacted fracture of the distal radial metaphysis. Cortical overriding is present. ACT 112: Negative or not required by law. Electronically signed by: Baldev Baltazar M.D. 01/04/2022 12:11 PM Discharge Plan Visit Data Chief Complaint: Fall ED Provider: Ever Trevino Discharge Problem: Closed fracture of tibial plateau, Fracture of proximal end of fibula, Distal radius fracture, right Patient Disposition: Being Evaluated by Hospitalist Forms Stand Alone Forms: My [facility] Prescriptions Prescriptions: No Action lidocaine [Salonpas (lidocaine)] 4 % adhesive patch,medicated 1 patch topical DAILY PRNRF: 0 losartan 50 mg tablet 50 mg PO QAM RF: 0 prednisone 5 mg Tablet 5 mg PO QAM RF: 0 levothyroxine [Synthroid] 50 mcg Tablet 50 mcg PO DAILYBB Qty: 1 RF: 0 ferrous sulfate 325 mg (65 mg iron) Tablet,Delayed Release (Dr/Ec) 325 mg PO BIDM Qty: 1 RF: 0 acetaminophen [Tylenol Extra Strength] 500 mg Tablet 1,000 mg PO Q4H MDD 6 tablets per day PRN (Reason: Pain) RF: 0 ondansetron 8 mg tablet,disintegrating 8 mg PO Q8H PRN (Reason: Nausea) RF: 0 omeprazole 20 mg capsule,delayed release(DR/EC) 20 mg PO BID RF: 0 metaxalone 800 mg tablet 800 mg PO QID RF: 0 melatonin 3 mg Tablet 3 mg PO HS PRN (Reason: sleep) Qty: 30 RF: 0 diclofenac sodium [Voltaren] 1 % Gel 2 g EXT TID Qty: 1 RF: 0 lamotrigine 150 mg tablet 150 mg PO BID Qty: 60 RF: 0 gabapentin 300 mg capsule 300 mg PO QID 30 Days Qty: 120 RF: 0 topiramate 100 mg tablet 150 mg PO HS Qty: 30 RF: 0 duloxetine 60 mg Capsule,Delayed Release(Dr/Ec) 120 mg PO QAM Qty: 60 RF: 0 Referrals Referrals: Mahendra Gudino DO [Physician] - Discharge Problem: Closed fracture of tibial plateau Qualifiers: Encounter type: initial encounter Laterality: right Qualified Code(s): S82.141A - Displaced bicondylar fracture of right tibia, initial encounter for closed fracture Fracture of proximal end of fibula Qualifiers: Encounter type: initial encounter Fracture type: closed Fracture morphology: unspecified fracture morphology Laterality: right Qualified Code(s): S82.831A - Other fracture of upper and lower end of right fibula, initial encounter for closed fracture Distal radius fracture, right Qualifiers: Encounter type: initial encounter Fracture type: closed Fracture morphology: unspecified fracture morphology Qualified Code(s): S52.501A - Unspecified fracture of the lower end of right radius, initial encounter for closed fracture
[2022-01-04] MEDS: MoRPHine SULFATE 4 MG/ML 1 ML CARP\\VIAL IV PRN ×2 (11:41→12:33)
--- NOTE | 2022-01-04 12:07 | XRay Report ---
XR ankle RT min 3V routine CLINICAL HISTORY: fall. Ankle pain COMPARISON STUDY: No previous studies for comparison. TECHNIQUE: 3 right ankle views FINDINGS: Bones: The bones are osteopenic. There is no evidence for an acute fracture or dislocation. There is no lytic or blastic lesion. Joints: The joint spaces are maintained. The bones are in anatomic alignment. Soft tissues: There is no focal soft tissue abnormality. There is no radiopaque foreign body. IMPRESSION: 1. No acute osseous pathology. ACT 112: Negative or not required by law. Electronically signed by: Baldev Baltazar M.D. 01/04/2022 12:06 PM
--- NOTE | 2022-01-04 12:07 | XRay Report ---
XR chest 1V portable CLINICAL HISTORY: fall. Evaluate cardiopulmonary status COMPARISON STUDY: 12/16/2019 TECHNIQUE: 1 view of the chest FINDINGS: Single frontal view of the chest demonstrates the cardiomediastinal silhouette to be within normal li mits. The lungs are clear of alveolar opacities. There is no evidence for pleural effusion. There is no evidence for vascular congestion. There is no acute osseous pathology. IMPRESSION: 1. No acute cardiopulmonary disease. ACT 112: Negative or not required by law. Electronically signed by: Baldev Baltazar M.D. 01/04/2022 12:05 PM
--- NOTE | 2022-01-04 12:11 | XRay Report ---
XR knee RT 1 or 2V routine CLINICAL HISTORY: fall. The pain COMPARISON STUDY: No previous studies for comparison. TECHNIQUE: 2 right knee views FINDINGS: Bones: Bones are osteopenic. There is an impacted fracture to the plateau extending from medial to la teral involving the tibial metaphysis. Additional mildly displaced fracture of the neck of the fibula is present. There is no lytic or blastic lesion. Joints: There is marked narrowing of the lateral joint compartment and mild narrowing of the medial j oint compartment and patellofemoral joint. There is a large intra-articular effusion. The bones are i n anatomic alignment. Soft tissues: There is no focal soft tissue abnormality. There is no radiopaque foreign body. IMPRESSION: 1. Impacted, nondisplaced fracture of the metaphysis of the tibial plateau 2. Fracture of the fibular neck. 3. Large intra-articular effusion. 4. Osteoarthritis ACT 112: Negative or not required by law. Electronically signed by: Baldev Baltazar M.D. 01/04/2022 12:09 PM
--- NOTE | 2022-01-04 12:12 | XRay Report ---
XR wrist RT min 3V routine CLINICAL HISTORY: fall. Wrist pain COMPARISON STUDY: No previous studies for comparison. TECHNIQUE: 4 right wrist views FINDINGS: Bones: The bones are osteopenic. There is an impacted fracture present involving the metaphysis of th e distal radius with cortical overriding present. The ulna appears intact. There is no lytic or blast ic lesion. Joints: The joint spaces are maintained. The bones are in anatomic alignment. Soft tissues: There is soft tissue swelling surrounding the wrist. There is no radiopaque foreign bod y. IMPRESSION: 1. Osteopenia with an impacted fracture of the distal radial metaphysis. Cortical overriding is prese nt. ACT 112: Negative or not required by law. Electronically signed by: Baldev Baltazar M.D. 01/04/2022 12:11 PM
--- NOTE | 2022-01-04 12:14 | XRay Report ---
XR hip RT 2V w pelvis CLINICAL HISTORY: fall. Right hip pain COMPARISON STUDY: 03/20/2020 TECHNIQUE: AP pelvis and 2 right hip views FINDINGS: Bones: The bones are osteopenic. There is no evidence for an acute fracture or dislocation. There is no lytic or blastic lesion. Joints: The right hip joint space is maintained. Stable total hip replacement is present on the left. The bones are in anatomic alignment. Soft tissues: There is no focal soft tissue abnormality. There is no radiopaque foreign body. IMPRESSION: 1. No acute osseous pathology. 2. Osteopenia and stable left total hip replacement. ACT 112: Negative or not required by law. Electronically signed by: Baldev Baltazar M.D. 01/04/2022 12:12 PM
[2022-01-04 12:29] LABS: Albumin Globulin Ratio 1.7 (0.9-2); BUN Creatinine Ratio 13.5 (10-20); Bilirubin,Total 0.8 mg/dl (0.2-1.0); Calcium 9.4 mg/dl (8.5-10.1); Creatinine Clr Calc Pharmacy 60.8 ml/min; Est GFR (African American) 77.7 ml/min; Est GFR (Non-African American) 67.1 ml/min; Globulin 2.4 gm/dl (2.5-4.0); Potassium 3.7 mmol/L (3.5-5.1); Total Protein 6.4 gm/dl (6.0-8.3)
[2022-01-04 12:46] LABS: Basophils # (auto) 0.03 K/uL (0-0.2); Basophils % (auto) 0.4 %; Eosinophils # (auto) 0.05 K/uL (0-0.5); Eosinophils % (auto) 0.7 %; Hemoglobin 12.8 g/dL (12.0-16.0); Immature Granulocytes # (auto) 0.04 K/uL (0.00-0.02); Immature Granulocytes % (auto) 0.5 %; Lymphocytes # (auto) 0.95 K/uL (1.2-3.4); Lymphocytes % (auto) 12.5 %; Mean Corpuscular Hemoglobin 32.7 pg (25-34); Mean Corpuscular Hgb Conc 33.7 g/dL (32-36); Mean Corpuscular Volume 97.2 fL (80-100); Mean Platelet Volume 9.7 fL (7.4-10.4); Monocytes # (auto) 0.58 K/uL (0.11-0.59); Monocytes % (auto) 7.6 %; Neutrophils # (auto) 5.97 K/uL (1.4-6.5); Neutrophils % (auto) 78.3 %; Platelet Count 205 K/uL (130-400); RDW Coefficient of Variation 13.1 % (11.5-14.5); RDW Standard Deviation 46.2 fL (36.4-46.3); Red Blood Count 3.91 M/uL (4.2-5.4); White Blood Count 7.62 K/uL (4.8-10.8)
--- NOTE | 2022-01-04 13:08 | History & Physical Report ---
Date of Service January 04, 2022 Assessment & Plan (1) Closed fracture of tibial plateau: (2) Fracture of proximal end of fibula: (3) Distal radius fracture, right: Plan: -Ortho consulted, [facility] as the patient has previously established with them -Allow diet today, n.p.o. at midnight for possible surgery -Heparin subcu, hold a.m. dose if plans for surgery -Pain control with Tylenol 1000 mg [id number], Toradol as per her home meds, IV morphine for breakthrough pain, bowel regimen ordered (4) HTN (hypertension): Plan: -Continue home medications (5) Hypothyroidism: Plan: -Continue levothyroxine (6) CKD (chronic kidney disease), stage III: Plan: -Creatinine 0.89 today, BUN 12 follow with a.m. labs (7) Bipolar II disorder: Plan: -Continue Lamictal 150 mg twice daily -Possible that Lamictal is causing elevated transaminases (8) Borderline personality disorder: (9) Fibromyalgia: (10) Spinal stenosis, lumbar region with neurogenic claudication: Plan: -History of such, stable, continue pain medication as above (11) Sacroiliac joint disease: Plan: -History of such, stable, patient noted that she uses cane intermittently at home -PT/OT consults DVT PPx: -keshia rebolledo CODE: DNR/DNI Dispo: From home, likely to remain in the hospital x 1-2 days History of Present Illness Chief Complaint: Fall,R knee pain, right wrist pain Primary Care Provider: Arpit Osman MD This is a 66-year-old female with PMHx of bipolar type II, depressed, fibromyalgia, borderline personality disorder, IBS, HTN, hypothyroidism, CKD stage III, who presents status post 2 falls which occurred yesterday afternoon. She reports that she was walking down the stairs and her right heel slipped off of the edge of a step and went down 3 stairs landing on a concrete floor. She had right knee pain and was having difficulty ambulating at that point time so decided to use a cane. She was switching between using the cane in her left and right hand, however is right-hand dominant. She fell again while the cane was in her left hand, causing her to go down and landed on on the right outstretched hand. She denies any injury to the head or loss of consciousness or presyncopal symptoms. In the evening she set up her bed in order to be able to reach everything without needing to get up, however this morning due to difficulty and increased pain despite medication with Tylenol she called EMS. She denies any numbness or tingling in the distal right leg but has been feeling shocklike waves of pain going up and down the leg. She was able to take all of her routinely scheduled home medications. She lives at home by herself, owns 2 cats. X-ray of the right knee shows impacted, nondisplaced fracture of the metaphysis of the tibial plateau, fracture of the fibular neck large intra-articular effusion. X-ray of the right wrist shows impacted fracture of the distal radial metaphysis. Allergies Allergy/AdvReac Type Severity Reaction Status Date / Time cyclobenzaprine Allergy Intermediate RASH AND Verified 06/26/20 11:32 SWELLING fentanyl Allergy Intermediate MAJOR FEET Verified 06/26/20 11:32 SWELLING oxcarbazepine Allergy Unknown UNKNOWN - Verified 06/26/20 11:32 PT DOESN'T REMEMBER risperidone AdvReac Intermediate exhaustion Verified 06/26/20 11:32 clonazepam AdvReac Mild nausea Verified 06/26/20 11:32 Home Medications Medication Instructions Recorded Confirmed Type prednisone 5 mg tablet 5 mg PO QAM 08/18/18 01/04/22 History ferrous sulfate 325 mg (65 mg 325 mg PO BIDM #1 tab 12/23/19 01/04/22 Rx iron) tablet,delayed release levothyroxine 50 mcg tablet 50 mcg PO DAILYBB #1 tab 12/23/19 01/04/22 Rx (Synthroid) acetaminophen 500 mg tablet 1,000 mg PO Q4H PRN MDD 6 tablets 03/20/20 01/04/22 History (Tylenol Extra Strength) per day metaxalone 800 mg tablet 800 mg PO QID 03/20/20 01/04/22 History omeprazole 20 mg capsule,delayed 20 mg PO BID 03/20/20 01/04/22 History release ondansetron 8 mg disintegrating 8 mg PO Q8H PRN 03/20/20 01/04/22 History tablet diclofenac sodium 1 % topical gel 2 g EXT TID #1 tube 06/20/20 01/04/22 Rx (Voltaren) duloxetine 60 mg capsule,delayed 120 mg PO QAM #60 cap 06/20/20 01/04/22 Rx release gabapentin 300 mg capsule 300 mg PO QID 30 Days #120 cap 06/20/20 01/04/22 Rx lamotrigine 150 mg tablet 150 mg PO BID #60 tab 06/20/20 01/04/22 Rx melatonin 3 mg tablet 3 mg PO HS PRN #30 tab 06/20/20 01/04/22 Rx topiramate 100 mg tablet 150 mg PO HS #30 tab 06/20/20 01/04/22 Rx lidocaine 4 % topical patch 1 patch TOPICAL DAILY PRN 06/26/20 01/04/22 History (Salonpas (lidocaine)) losartan 50 mg tablet 50 mg PO QAM tab 06/26/20 01/04/22 History ketorolac 10 mg tablet 10 mg PO QID PRN 01/04/22 01/04/22 History Past Med/Surg History Medical History Bipolar II disorder Psychiatry and Neurofeedback Borderline personality disorder C. difficile diarrhea Chronic pain CKD (chronic kidney disease), stage III Drug overdose Fibromyalgia Hip dislocation, left (~03/2020) Hypertension Hypokalemia Hyponatremia Hypothyroidism IBS (irritable bowel syndrome) Leg length discrepancy Polypharmacy Pressure injury of sacral region, stage 1 Recurrent Clostridioides difficile diarrhea Surgical History H/O carpal tunnel repair H/O inguinal hernia repair S/P cataract surgery Status post total hip replacement, left Family History Father Lung cancer associated cerebellar ataxia Macular degeneration Mother Pacemaker Other Cancer Heart disease Hypertension Lung disease Social History Smoking Status: Former smoker Tobacco Type: Cigarettes Second Hand Exposure: No; Hx Alcohol Use: No Hx Substance Use: Yes Last Used Substance: Days (ago) Last Used Substance Other:: Atleast 2 days ago for Kratom. Marijuana more then 24hrs. Substance Use Type Other:: Kratom, medical marijuna Preferred Language: Kosovan Communication Ability: Effective Visual Impairment: No Limitations Hearing Ability: Normal Hospice Care Transitions Coordinator Required: No Beliefs That Will Affect Care: None marital status: / Current Living Situation: Alone Current Living Situation Comment: Lives alone in a multiple level house current occupational status: retired Feels Safe at Home: Yes Assistive Devices: Cane and Glasses Review of Systems Review of Systems: Constitutional: No fever, sweats or chills Eyes: No diplopia, no worsening or blurred vision ENT: normal hearing, no trouble swallowing Respiratory: No cough, sputum, dyspnea at rest or on exertion Cardiovascular: No chest pain, tightness or palpitations Abdomen: No pain, nausea, vomiting, diarrhea or constipation Musculoskeletal: Right knee and right wrist joint pain, calf pain, swelling, no numbness or tingling Neurologic: No weakness, numbness/tingling, or balance problems Psychiatric: No anxiety or depression, + bipolar disorder Skin: No rash or itch Physical Exam Physical Exam: General: awake, alert, no apparent distress Head: Normocephalic, atraumatic ENT: PERRL, EOMI, no pharyngeal exudate, mucous membranes moist Chest: Clear to auscultation, on room air, no adventitious breath sounds Cardiac: Regular rate and rhythm, no murmur, no JVD, normal peripheral pulses, good capillary refill Abdominal: NABS x 4 quadrants, soft, nondistended, nontender to palpation, no rebound or guarding Extremities: Right wrist splinted, right leg splinted, ice pack on place, no peripheral edema or erythema, able to move the right ankle without difficulty, left calf nontender to palpation Psych: Normal mood and affect Neuro: AAO x 3, strength intact bilaterally and rated 5/5 except for the right leg and right arm which was not tested due to fracture, no motor deficits, speech is clear, no peripheral sensory deficits Results & Data Results & Data ([facility]) Vital Signs (Past 12 Hours) Vital Signs Temp Pulse Pulse Resp BP BP Pulse Ox 01/04/22 11:46 98 01/04/22 11:07 37.0 C 83 83 20 142/86 H 142/86 H 98 Laboratory Results 01/04/22 01/04/22 01/04/22 11:38 11:38 11:07 WBC 7.62 RBC 3.91 L Hgb 12.8 Hct 38.0 MCV 97.2 MCH 32.7 MCHC 33.7 RDW Std Deviation 46.2 RDW Coeff of [place] 13.1 Plt Count 205 MPV 9.7 Immature Gran % (Auto) 0.5 Neut % (Auto) 78.3 Lymph % (Auto) 12.5 [place] % (Auto) 7.6 Eos % (Auto) 0.7 Baso % (Auto) 0.4 Neut # (Auto) 5.97 Lymph # (Auto) 0.95 L [place] # (Auto) 0.58 Eos # (Auto) 0.05 Baso # (Auto) 0.03 Immature Gran # (Auto) 0.04 H Sodium 139 Potassium 3.7 Chloride 109 H Carbon Dioxide 25 Anion Gap 5 BUN 12 Creatinine 0.89 Est Cr Clr Drug Dosing 60.8 Est GFR ( Amer) 77.7 Est GFR (Non-Af Amer) 67.1 BUN/Creatinine Ratio 13.5 Glucose 76 Calcium 9.4 Total Bilirubin 0.8 AST 146 H ALT 305 H Alkaline Phosphatase 56 Total Protein 6.4 Albumin 4.0 Globulin 2.4 L Albumin/Globulin Ratio 1.7 Lipase 27 SARS-CoV-2, RNA, NAAT NEGATIVE Diagnostic Findings Ankle X-Ray 01/04/22 11:26 XR ankle RT min 3V routine CLINICAL HISTORY: fall. Ankle pain COMPARISON STUDY: No previous studies for comparison. TECHNIQUE: 3 right ankle views FINDINGS: Bones: The bones are osteopenic. There is no evidence for an acute fracture or dislocation. There is no lytic or blastic lesion. Joints: The joint spaces are maintained. The bones are in anatomic alignment. Soft tissues: There is no focal soft tissue abnormality. There is no radiopaque foreign body. IMPRESSION: 1. No acute osseous pathology. ACT 112: Negative or not required by law. Electronically signed by: Baldev Baltazar M.D. 01/04/2022 12:06 PM Chest X-Ray 01/04/22 11:26 XR chest 1V portable CLINICAL HISTORY: fall. Evaluate cardiopulmonary status COMPARISON STUDY: 12/16/2019 TECHNIQUE: 1 view of the chest FINDINGS: Single frontal view of the chest demonstrates the cardiomediastinal silhouette to be within normal limits. The lungs are clear of alveolar opacities. There is no evidence for pleural effusion. There is no evidence for vascular congestion. There is no acute osseous pathology. IMPRESSION: 1. No acute cardiopulmonary disease. ACT 112: Negative or not required by law. Electronically signed by: Baldev Baltazar M.D. 01/04/2022 12:05 PM Hip/Pelvis X-Ray 01/04/22 11:26 XR hip RT 2V w pelvis CLINICAL HISTORY: fall. Right hip pain COMPARISON STUDY: 03/20/2020 TECHNIQUE: AP pelvis and 2 right hip views FINDINGS: Bones: The bones are osteopenic. There is no evidence for an acute fracture or dislocation. There is no lytic or blastic lesion. Joints: The right hip joint space is maintained. Stable total hip replacement is present on the left. The bones are in anatomic alignment. Soft tissues: There is no focal soft tissue abnormality. There is no radiopaque foreign body. IMPRESSION: 1. No acute osseous pathology. 2. Osteopenia and stable left total hip replacement. ACT 112: Negative or not required by law. Electronically signed by: Baldev Baltazar M.D. 01/04/2022 12:12 PM Knee X-Ray 01/04/22 11:26 XR knee RT 1 or 2V routine CLINICAL HISTORY: fall. The pain COMPARISON STUDY: No previous studies for comparison. TECHNIQUE: 2 right knee views FINDINGS: Bones: Bones are osteopenic. There is an impacted fracture to the plateau extending from medial to lateral involving the tibial metaphysis. Additional mildly displaced fracture of the neck of the fibula is present. There is no lytic or blastic lesion. Joints: There is marked narrowing of the lateral joint compartment and mild narrowing of the medial joint compartment and patellofemoral joint. There is a large intra-articular effusion. The bones are in anatomic alignment. Soft tissues: There is no focal soft tissue abnormality. There is no radiopaque foreign body. IMPRESSION: 1. Impacted, nondisplaced fracture of the metaphysis of the tibial plateau 2. Fracture of the fibular neck. 3. Large intra-articular effusion. 4. Osteoarthritis ACT 112: Negative or not required by law. Electronically signed by: Baldev Baltazar M.D. 01/04/2022 12:09 PM Wrist X-Ray 01/04/22 11:26 XR wrist RT min 3V routine CLINICAL HISTORY: fall. Wrist pain COMPARISON STUDY: No previous studies for comparison. TECHNIQUE: 4 right wrist views FINDINGS: Bones: The bones are osteopenic. There is an impacted fracture present involving the metaphysis of the distal radius with cortical overriding present. The ulna appears intact. There is no lytic or blastic lesion. Joints: The joint spaces are maintained. The bones are in anatomic alignment. Soft tissues: There is soft tissue swelling surrounding the wrist. There is no radiopaque foreign body. IMPRESSION: 1. Osteopenia with an impacted fracture of the distal radial metaphysis. Cortical overriding is present. ACT 112: Negative or not required by law. Electronically signed by: Baldev Baltazar M.D. 01/04/2022 12:11 PM ECG Additional Comments: Ordered preoperatively Code Status & VTE Plan Code Status DNR/DNI-discussed with the patient at bedside, reports her 5 years ago. VTE Prophylaxis Plan VTE Prophylaxis will be ordered: Yes (1) Closed fracture of tibial plateau Encounter type: initial encounter Laterality: right Qualified Code(s): S82.141A - Displaced bicondylar fracture of right tibia, initial encounter for closed fracture (2) Fracture of proximal end of fibula Encounter type: initial encounter Fracture morphology: unspecified fracture morphology Fracture type: closed Laterality: right Qualified Code(s): S82.831A - Other fracture of upper and lower end of right fibula, initial encounter for closed fracture (3) Distal radius fracture, right Encounter type: initial encounter Fracture morphology: unspecified fracture morphology Fracture type: closed Qualified Code(s): S52.501A - Unspecified fracture of the lower end of right radius, initial encounter for closed fracture
[2022-01-04] MEDS ORDERED: ACETAMINOPHEN 325 MG TAB PO PRN (15:18)
[2022-01-04] MEDS: ONDANSETRON INJ 2 MG/ML 2 ML VIAL IV PRN (17:18)
[2022-01-04] MEDS: MoRPHine SULFATE 2 MG/ML CARP IV PRN ×3 (17:18→23:23)
[2022-01-04] MEDS: FERROUS SULFATE 325 MG TAB PO SCH (20:08)
[2022-01-04] MEDS: ACETAMINOPHEN 500 MG TAB PO SCH ×2 (20:08→23:22)
[2022-01-04] MEDS: lamoTRIgine 100 MG TAB PO SCH (20:09)
[2022-01-04] MEDS: PANTOprazole 40 MG TAB PO SCH (20:09)
[2022-01-04] MEDS: TOPIRAMATE 50 MG TAB PO SCH (20:09)
[2022-01-04] MEDS: HEPARIN SOD 5,000 UNIT/0.5 ML VIAL SQ SCH (20:10)
[2022-01-04] MEDS: GABAPENTIN 300 MG CAP PO SCH ×2 (20:11→23:03)
[2022-01-04] MEDS: METAXALONE 800 MG TABLET PO SCH ×2 (20:12→23:03)
[2022-01-05] MEDS: LEVOTHYROXINE SODIUM 50 MCG TABLET PO SCH (05:55)
[2022-01-05] MEDS: HEPARIN SOD 5,000 UNIT/0.5 ML VIAL SQ SCH ×5 (05:55→20:35)
[2022-01-05] MEDS: MoRPHine SULFATE 2 MG/ML CARP IV PRN ×3 (05:56→20:29)
[2022-01-05 06:11] LABS: Hematocrit (blood only) 32.4 % (37-47); Mean Corpuscular Hemoglobin 33.1 pg (25-34); Mean Corpuscular Volume 97.6 fL (80-100); Mean Platelet Volume 9.4 fL (7.4-10.4); Platelet Count 182 K/uL (130-400); RDW Standard Deviation 46.1 fL (36.4-46.3); Red Blood Count 3.32 M/uL (4.2-5.4); White Blood Count 5.11 K/uL (4.8-10.8)
[2022-01-05 06:36] LABS: Albumin Globulin Ratio 1.5 (0.9-2); Albumin Level 3.2 gm/dl (3.4-5.0); BUN Creatinine Ratio 17.7 (10-20); Bilirubin,Total 0.6 mg/dl (0.2-1.0); Calcium 8.5 mg/dl (8.5-10.1); Est GFR (African American) 49.2 ml/min; Est GFR (Non-African American) 42.4 ml/min; Globulin 2.2 gm/dl (2.5-4.0); Total Protein 5.4 gm/dl (6.0-8.3)
[2022-01-05] MEDS: ACETAMINOPHEN 500 MG TAB PO SCH ×3 (08:26→22:44)
[2022-01-05] MEDS: DULoxetine HCL 60 MG CAP PO SCH (08:26)
[2022-01-05] MEDS: bisacodyL 5 MG TABEC PO SCH ×2 (08:26→08:36)
[2022-01-05] MEDS: METAXALONE 800 MG TABLET PO SCH ×4 (08:27→20:34)
[2022-01-05] MEDS: predniSONE 5 MG TAB PO SCH (08:27)
[2022-01-05] MEDS: GABAPENTIN 300 MG CAP PO SCH ×4 (08:28→20:34)
[2022-01-05] MEDS: PANTOprazole 40 MG TAB PO SCH ×2 (08:28→20:34)
[2022-01-05] MEDS: lamoTRIgine 100 MG TAB PO SCH ×2 (08:29→20:34)
[2022-01-05] MEDS: POLYETHYLENE (MIRALAX) 17 GM PACK PO SCH (08:30)
[2022-01-05] MEDS: FERROUS SULFATE 325 MG TAB PO SCH ×2 (08:30→17:09)
[2022-01-05] MEDS ORDERED: SODIUM CHLORIDE 0.9% 1000ML 1,000 ML IV SCH (09:00)
[2022-01-05] MEDS ORDERED: LOSARTAN POTASSIUM 50 MG TAB PO SCH (09:00)
[2022-01-05] MEDS: KETOROLAC TROMETHAMINE 10 MG TABLET PO PRN (09:46)
--- NOTE | 2022-01-05 10:29 | CT Scan Report ---
CT tib/fib RT wo con HISTORY: 66 years-old Female tibial plateau fx, acute right tibia and fibular fractures. COMPARISON: Right knee radiographs of same day. TECHNIQUE: Multiple axial CT images of the right tibia and fibula were obtained without the use of IV contrast. Additional 3-D rendered images were generated from a separate workstation. A dose lowering technique was used consistent with the principals of ALARA. FINDINGS: Severe lateral with mild to moderate medial and patellofemoral compartment osteoarthritis. Additional osteoarthritis of the ankle and hindfoot. Demineralized appearance of the bones. There are a few loo se bodies of the dependent joint space of the knee measuring up to 1.9 cm. There is a large lipohemar throsis. Acute mildly comminuted fracture involves the fibular head and neck demonstrating 6 mm of me dial displacement. There is an acute and comminuted proximal tibial fracture. Transverse/oblique frac ture component extends through the proximal tibial metaphysis. There are a few millimeters of cortica l impaction. Comminuted vertically oriented fracture lines are noted extending into the medial tibial plateau, tibial spines and also likely within the anterior aspect of the lateral tibial plateau. The re are a few millimeters of medial, lateral and posterior cortical displacement. Tendons, ligaments and menisci of the knee are not well evaluated by CT technique. IMPRESSION: 1. Acute comminuted, slightly impacted and only minimally displaced intra-articular proximal tibial f racture as above. 2. Acute, comminuted and minimally displaced proximal fibular fracture. 3. Large lipohemarthrosis. 4. Tricompartmental osteoarthritis, severe within the lateral compartment with intra-articular loose bodies. ACT 112: Negative or not required by law. The above report was generated using voice recognition software. It may contain grammatical, syntax o r spelling errors. Dictated: 01/05/2022 7:35 AM Transcribed: 01/05/2022 10:07 AM Aniya [id number] [place] Electronically signed by: Carlitos Joy M.D. 01/05/2022 10:28 AM
--- NOTE | 2022-01-05 13:38 | Electrocardiogram Report ---
Test Reason : Blood Pressure : / mmHG Vent. Rate : 060 BPM Atrial Rate : 060 BPM P-R Int : 132 ms QRS Dur : 086 ms QT Int : 426 ms P-R-T Axes : 069 034 063 degrees QTc Int : 426 ms Normal sinus rhythm Possible Left atrial enlargement Low voltage QRS Nonspecific T wave abnormality Abnormal ECG When compared with ECG of 14-JUN-2020 11:34, No significant change was found Confirmed by Ever Rawls ([id number]) on 01/05/2022 1:38:17 PM Referred By: REFERRED SELF Confirmed By:Ever Rawls
--- NOTE | 2022-01-05 18:05 | Orthopedic Consultation ---
Date of Consultation January 05, 2022 Assessment & Plan (1) Closed fracture of tibial plateau: Patient with minimally displaced right tibial plateau fracture with proximal fibular head fracture. X-rays have been reviewed by Dr. Russo this time. With minimal displacement, plans will be for hinged knee orthosis to be fitted by the orthotics team. She will be nonweightbearing on the right lower extremity. Right distal radius fracture. Mild displacement noted. X-rays have been reviewed by Dr. Murray as well and case is also being discussed with Dr. Aparicio. Possible plan for closed manipulation of the fracture at the bedside per Dr. Murray if needed. Question of needing further surgery on the radius fracture in the future. Overall, patient will have difficulty ambulating even with a platform walker. She will require a rehab facility post discharge. Once her brace is fitted and final plans for her wrist have been taken care of, we will start her on physical therapy to see how she progresses. History of Present Illness Reason for Consultation: Right distal radius fracture, right tibial plateau fracture Attending Physician: Jo Stark MD History of Present Illness Patient is a 66-year-old female who states that she was coming down her steps yesterday and her heel caught the edge of the step and she slipped and went down 3 steps. She jolted her right lower extremity and she felt immediate pain in her right knee. Did fall to the ground at that time. She was able to get herself back up and had grabbed 2 canes to try and help her self get to her bed. She states that every time she put weight on her right lower extremity, she had moderate to severe pain. She became somewhat lightheaded and dizzy secondary from the discomfort. She states that she made at about 4 steps away from her bed when her toe of her foot caught the carpet and caused her to fall again. She ended up falling on her right wrist and arm and immediately felt pain. She was brought to the emergency room and she was seen by the staff. X-rays were taken. It was found that she had a distal radius fracture as well as a tibial plateau fracture. She was admitted by [facility] service and they have asked us to take care of her fractures. Currently she is awake and alert and in no acute distress. She denies loss of consciousness at the time. She denies any shortness of breath or chest pain prior to or after the fall. Allergies Allergy/AdvReac Type Severity Reaction Status Date / Time cyclobenzaprine Allergy Intermediate RASH AND Verified 06/26/20 11:32 SWELLING fentanyl Allergy Intermediate MAJOR FEET Verified 06/26/20 11:32 SWELLING oxcarbazepine Allergy Unknown UNKNOWN - Verified 06/26/20 11:32 PT DOESN'T REMEMBER risperidone AdvReac Intermediate exhaustion Verified 06/26/20 11:32 clonazepam AdvReac Mild nausea Verified 06/26/20 11:32 Home Medications Medication Instructions Recorded Confirmed Type prednisone 5 mg tablet 5 mg PO QAM 08/18/18 01/04/22 History ferrous sulfate 325 mg (65 mg 325 mg PO BIDM #1 tab 12/23/19 01/04/22 Rx iron) tablet,delayed release levothyroxine 50 mcg tablet 50 mcg PO DAILYBB #1 tab 12/23/19 01/04/22 Rx (Synthroid) acetaminophen 500 mg tablet 1,000 mg PO Q4H PRN MDD 6 tablets 03/20/20 01/04/22 History (Tylenol Extra Strength) per day metaxalone 800 mg tablet 800 mg PO QID 03/20/20 01/04/22 History omeprazole 20 mg capsule,delayed 20 mg PO BID 03/20/20 01/04/22 History release ondansetron 8 mg disintegrating 8 mg PO Q8H PRN 03/20/20 01/04/22 History tablet diclofenac sodium 1 % topical gel 2 g EXT TID #1 tube 06/20/20 01/04/22 Rx (Voltaren) duloxetine 60 mg capsule,delayed 120 mg PO QAM #60 cap 06/20/20 01/04/22 Rx release gabapentin 300 mg capsule 300 mg PO QID 30 Days #120 cap 06/20/20 01/04/22 Rx lamotrigine 150 mg tablet 150 mg PO BID #60 tab 06/20/20 01/04/22 Rx melatonin 3 mg tablet 3 mg PO HS PRN #30 tab 06/20/20 01/04/22 Rx topiramate 100 mg tablet 150 mg PO HS #30 tab 06/20/20 01/04/22 Rx lidocaine 4 % topical patch 1 patch TOPICAL DAILY PRN 06/26/20 01/04/22 History (Salonpas (lidocaine)) losartan 50 mg tablet 50 mg PO QAM tab 06/26/20 01/04/22 History ketorolac 10 mg tablet 10 mg PO QID PRN 01/04/22 01/04/22 History Patient History Medical History Bipolar II disorder Psychiatry and Neurofeedback Borderline personality disorder C. difficile diarrhea Chronic pain CKD (chronic kidney disease), stage III Drug overdose Fibromyalgia Hip dislocation, left (~03/2020) Hypertension Hypokalemia Hyponatremia Hypothyroidism IBS (irritable bowel syndrome) Leg length discrepancy Polypharmacy Pressure injury of sacral region, stage 1 Recurrent Clostridioides difficile diarrhea Surgical History H/O carpal tunnel repair H/O inguinal hernia repair S/P cataract surgery Status post total hip replacement, left Family History Father Lung cancer associated cerebellar ataxia Macular degeneration Mother Pacemaker Other Cancer Heart disease Hypertension Lung disease Social History Smoking Status: Former smoker Tobacco Type: Cigarettes Second Hand Exposure: No; Hx Alcohol Use: No Hx Substance Use: Yes Last Used Substance: Days (ago) Last Used Substance Other:: Atleast 2 days ago for Kratom. Marijuana more then 24hrs. Substance Use Type Other:: kratom Preferred Language: Spanish Communication Ability: Effective Visual Impairment: No Limitations Hearing Ability: Normal Stone Belt Sander Required: No Beliefs That Will Affect Care: None marital status: / Current Living Situation: Alone Current Living Situation Comment: Lives alone in a multiple level house current occupational status: retired Feels Safe at Home: Yes Assistive Devices: Cane Physical Exam Physical Exam: Patient is a 66-year-old white female who is alert and oriented x3, no acute distress, pleasant cooperative. On examination of her right upper extremity, she has a short splint noted on the right wrist and forearm. She is able to move all of her fingers at this time and she has good sensation. Cap refill is less than 2 seconds. She has no pain at the right elbow and right shoulder. Range of motion of her shoulder and elbow are within normal limits. Left upper extremity is unaffected at this time although she does have a noted abrasion on the left forearm. Examination of her right lower extremity shows an immobilizer on the right knee. This is removed. She has a moderate effusion of the right knee with some mild ecchymosis noted. Range of motion is limited secondary to pain from fracture. She has no pain in the right hip. She is able to actively flex the hip at this time and also do some slight range of motion of the right knee but has moderate pain in the right knee when she does so. Her right ankle is within normal limits and has good range of motion. Left lower extremity is unaffected. There is no gross motor or sensory loss at this time. Distal pulses are equal bilaterally of the upper and lower extremities. Immobilizer is placed back on the right knee after examination. Results & Data ([facility]) Vital Signs (Past 12 Hours) Vital Signs Temp Pulse Resp BP BP Pulse Ox 01/05/22 14:26 36.6 C 74 16 105/68 92 01/05/22 11:38 62 107/68 01/05/22 06:13 36.4 C L 66 16 93/60 L 97 Laboratory Results Laboratory Results WBC 5.11 K/uL (4.8-10.8) 01/05/22 05:49 RBC 3.32 M/uL (4.2-5.4) L 01/05/22 05:49 Hgb 11.0 g/dL (12.0-16.0) L 01/05/22 05:49 Hct 32.4 % (37-47) L 01/05/22 05:49 MCV 97.6 fL (80-100) 01/05/22 05:49 MCH 33.1 pg (25-34) 01/05/22 05:49 MCHC 34.0 g/dL (32-36) 01/05/22 05:49 RDW Std Deviation 46.1 fL (36.4-46.3) 01/05/22 05:49 RDW Coeff of [place] 13.0 % (11.5-14.5) 01/05/22 05:49 Plt Count 182 K/uL (130-400) 01/05/22 05:49 MPV 9.4 fL (7.4-10.4) 01/05/22 05:49 Immature Gran % (Auto) 0.5 % 01/04/22 11:38 Neut % (Auto) 78.3 % 01/04/22 11:38 Lymph % (Auto) 12.5 % 01/04/22 11:38 [place] % (Auto) 7.6 % 01/04/22 11:38 Eos % (Auto) 0.7 % 01/04/22 11:38 Baso % (Auto) 0.4 % 01/04/22 11:38 Neut # (Auto) 5.97 K/uL (1.4-6.5) 01/04/22 11:38 Lymph # (Auto) 0.95 K/uL (1.2-3.4) L 01/04/22 11:38 [place] # (Auto) 0.58 K/uL (0.11-0.59) 01/04/22 11:38 Eos # (Auto) 0.05 K/uL (0-0.5) 01/04/22 11:38 Baso # (Auto) 0.03 K/uL (0-0.2) 01/04/22 11:38 Immature Gran # (Auto) 0.04 K/uL (0.00-0.02) H 01/04/22 11:38 Sodium 134 mmol/L (136-145) L 01/05/22 05:49 Potassium 4.0 mmol/L (3.5-5.1) 01/05/22 05:49 Chloride 107 mmol/L (98-107) 01/05/22 05:49 Carbon Dioxide 22 mmol/L (21-32) 01/05/22 05:49 Anion Gap 5 (3-11) 01/05/22 05:49 BUN 23 mg/dl (6-23) 01/05/22 05:49 Creatinine 1.30 mg/dl (0.6-1.2) H D 01/05/22 05:49 Est Cr Clr Drug Dosing 42.0 ml/min 01/05/22 05:49 Est GFR ( Amer) 49.2 ml/min 01/05/22 05:49 Est GFR (Non-Af Amer) 42.4 ml/min 01/05/22 05:49 BUN/Creatinine Ratio 17.7 (10-20) 01/05/22 05:49 Glucose 108 mg/dl (70-99(Fasting)) H 01/05/22 05:49 Calcium 8.5 mg/dl (8.5-10.1) 01/05/22 05:49 Total Bilirubin 0.6 mg/dl (0.2-1.0) 01/05/22 05:49 AST 99 U/L (13-39) H 01/05/22 05:49 ALT 226 U/L (7-52) H 01/05/22 05:49 Alkaline Phosphatase 50 U/L (34-104) 01/05/22 05:49 Total Protein 5.4 gm/dl (6.0-8.3) L 01/05/22 05:49 Albumin 3.2 gm/dl (3.4-5.0) L 01/05/22 05:49 Globulin 2.2 gm/dl (2.5-4.0) L 01/05/22 05:49 Albumin/Globulin Ratio 1.5 (0.9-2) 01/05/22 05:49 Lipase 27 U/L (11-82) 01/04/22 11:38 SARS-CoV-2, RNA, NAAT NEGATIVE (NEGATIVE) 01/04/22 11:07 Impressions Ankle X-Ray 01/04/22 11:26 XR ankle RT min 3V routine CLINICAL HISTORY: fall. Ankle pain COMPARISON STUDY: No previous studies for comparison. TECHNIQUE: 3 right ankle views FINDINGS: Bones: The bones are osteopenic. There is no evidence for an acute fracture or dislocation. There is no lytic or blastic lesion. Joints: The joint spaces are maintained. The bones are in anatomic alignment. Soft tissues: There is no focal soft tissue abnormality. There is no radiopaque foreign body. IMPRESSION: 1. No acute osseous pathology. ACT 112: Negative or not required by law. Electronically signed by: Baldev Baltazar M.D. 01/04/2022 12:06 PM Electronically signed by: Baldev Baltazar M.D. 01/04/2022 12:05 PM Hip/Pelvis X-Ray 01/04/22 11:26 XR hip RT 2V w pelvis CLINICAL HISTORY: fall. Right hip pain COMPARISON STUDY: 03/20/2020 TECHNIQUE: AP pelvis and 2 right hip views FINDINGS: Bones: The bones are osteopenic. There is no evidence for an acute fracture or dislocation. There is no lytic or blastic lesion. Joints: The right hip joint space is maintained. Stable total hip replacement is present on the left. The bones are in anatomic alignment. Soft tissues: There is no focal soft tissue abnormality. There is no radiopaque foreign body. IMPRESSION: 1. No acute osseous pathology. 2. Osteopenia and stable left total hip replacement. ACT 112: Negative or not required by law. Electronically signed by: Baldev Baltazar M.D. 01/04/2022 12:12 PM Knee X-Ray 01/04/22 11:26 XR knee RT 1 or 2V routine CLINICAL HISTORY: fall. The pain COMPARISON STUDY: No previous studies for comparison. TECHNIQUE: 2 right knee views FINDINGS: Bones: Bones are osteopenic. There is an impacted fracture to the plateau extending from medial to lateral involving the tibial metaphysis. Additional mildly displaced fracture of the neck of the fibula is present. There is no lytic or blastic lesion. Joints: There is marked narrowing of the lateral joint compartment and mild narrowing of the medial joint compartment and patellofemoral joint. There is a large intra-articular effusion. The bones are in anatomic alignment. Soft tissues: There is no focal soft tissue abnormality. There is no radiopaque foreign body. IMPRESSION: 1. Impacted, nondisplaced fracture of the metaphysis of the tibial plateau 2. Fracture of the fibular neck. 3. Large intra-articular effusion. 4. Osteoarthritis ACT 112: Negative or not required by law. Electronically signed by: Baldev Baltazar M.D. 01/04/2022 12:09 PM Wrist X-Ray 01/04/22 11:26 XR wrist RT min 3V routine CLINICAL HISTORY: fall. Wrist pain COMPARISON STUDY: No previous studies for comparison. TECHNIQUE: 4 right wrist views FINDINGS: Bones: The bones are osteopenic. There is an impacted fracture present involving the metaphysis of the distal radius with cortical overriding present. The ulna appears intact. There is no lytic or blastic lesion. Joints: The joint spaces are maintained. The bones are in anatomic alignment. Soft tissues: There is soft tissue swelling surrounding the wrist. There is no radiopaque foreign body. IMPRESSION: 1. Osteopenia with an impacted fracture of the distal radial metaphysis. Cortical overriding is present. ACT 112: Negative or not required by law. Electronically signed by: Baldev Baltazar M.D. 01/04/2022 12:[address] 01/04/22 20:26 CT tib/fib RT wo con HISTORY: 66 years-old Female tibial plateau fx, acute right tibia and fibular fractures. COMPARISON: Right knee radiographs of same day. TECHNIQUE: Multiple axial CT images of the right tibia and fibula were obtained without the use of IV contrast. Additional 3-D rendered images were generated from a separate workstation. A dose lowering technique was used consistent with the principals of ALARA. FINDINGS: Severe lateral with mild to moderate medial and patellofemoral compartment osteoarthritis. Additional osteoarthritis of the ankle and hindfoot. Demineralized appearance of the bones. There are a few loose bodies of the dependent joint space of the knee measuring up to 1.9 cm. There is a large lipohemarthrosis. Acute mildly comminuted fracture involves the fibular head and neck demonstrating 6 mm of medial displacement. There is an acute and comminuted proximal tibial fracture. Transverse/oblique fracture component extends through the proximal tibial metaphysis. There are a few millimeters of cortical impaction. Comminuted vertically oriented fracture lines are noted extending into the medial tibial plateau, tibial spines and also likely within the anter ior aspect of the lateral tibial plateau. There are a few millimeters of medial, lateral and posterior cortical displacement. Tendons, ligaments and menisci of the knee are not well evaluated by CT technique. IMPRESSION: 1. Acute comminuted, slightly impacted and only minimally displaced intra- articular proximal tibial fracture as above. 2. Acute, comminuted and minimally displaced proximal fibular fracture. 3. Large lipohemarthrosis. 4. Tricompartmental osteoarthritis, severe within the lateral compartment with intra-articular loose bodies. ACT 112: Negative or not required by law. The above report was generated using voice recognition software. It may contain grammatical, syntax or spelling errors. Dictated: 01/05/2022 7:35 AM Transcribed: 01/05/2022 10:07 AM Aniya [id number] [email or web address] Electronically signed by: Carlitos Joy M.D. 01/05/2022 10:28 AM (1) Closed fracture of tibial plateau Encounter type: initial encounter Laterality: right Qualified Code(s): S82.141A - Displaced bicondylar fracture of right tibia, initial encounter for closed fracture
--- NOTE | 2022-01-05 18:14 | Hospitalist Progress Note ---
Date of Service January 05, 2022 Assessment & Plan (1) Closed fracture of tibial plateau: (2) Fracture of proximal end of fibula: Plan: S/P fall CT RLE showed showed acute comminuted, slightly impacted and only minimally displaced intra-articular proximal tibial fracture. Acute, comminuted and minimally displaced proximal fibular fracture. Xray of R knee showed Impacted, nondisplaced fracture of the metaphysis of the tibial plateau. Fracture of the fibular neck. Large intra-articular effusion. Ortho on board recommended no surgical intervention plans will be for hinged knee orthosis to be fitted by the orthotics team. She will be nonweightbearing on the right lower extremity. Continue pain control PT/OT eval Consider inpatient rehab Fall precaution (3) Distal radius fracture, right: Plan: S/P fall. Xray of right wrist showed showed Osteopenia with an impacted fracture of the distal radial metaphysis. Ortho on board recommended conservative management Possible plan for closed manipulation of the fracture at the bedside if needed. Might need surgery on the radius fracture in the future as per ortho continue pain control (4) Transaminitis: Plan: Liver enzyme elevated on admission with AST 146 and ALT 305 AST 99 and ALT 226 today Continue to avoid nephrotoxic agents Continue monitor LFT (5) HTN (hypertension): Plan: BP stable (6) Hypothyroidism: Plan: -Continue levothyroxine (7) CKD (chronic kidney disease), stage III: Plan: -Creatinine 0.89 today, BUN 12 follow with a.m. labs (8) Bipolar II disorder: Plan: -Continue Lamictal 150 mg twice daily -Possible that Lamictal is causing elevated transaminases (9) Borderline personality disorder: (10) Fibromyalgia: (11) Spinal stenosis, lumbar region with neurogenic claudication: Plan: -History of such, stable, continue pain medication as above (12) Sacroiliac joint disease: Plan: -History of such, stable, patient noted that she uses cane intermittently at home -PT/OT consults DVT PPx will start on marvelquis CODE: DNR/DNI Disposition Will need placement to rehab Admission and Anticipated Discharge Date Admission Date: January 04, 2022 Subjective Pt was seen and examined for follow up of fracture of tibial plateau and Right distal radius fracture Lying in bed with no acute distress Pt said that pain is control She said that on and off she might have a sharp pain if she moves her leg Denies any chest pain, palpitation, dizziness, shortness of breath. Review of Systems Review of Systems: All systems reviewed & are unremarkable except as noted in Subjective Physical Exam Physical Exam: General- No acute distress Head- atraumatic Eyes- PERRL, EOMI, ENT- oropharynx clear Neck- supple, no JVD Lungs- clear to auscultation Heart- regular rhythm; no murmur Abdomen- normal bowel sounds, soft, nontender Extremities- splint in right wrist and forearm + able to move all of her fingers, +right knee immobilizer, +tenderness if tried to move RLE Neuro- alert, oriented x 3; PERRL, EOMI; no facial palsy; no dysarthria Skin- warm & dry Results & Data Results & Data ([facility]) Vital Signs (Past 12 Hours) Vital Signs Temp Pulse Resp BP Pulse Ox 01/05/22 14:26 36.6 C 74 16 105/68 92 01/05/22 11:38 62 107/68 (1) Distal radius fracture, right Encounter type: initial encounter Fracture morphology: unspecified fracture morphology Fracture type: closed Qualified Code(s): S52.501A - Unspecified fracture of the lower end of right radius, initial encounter for closed fracture (2) Fracture of proximal end of fibula Encounter type: initial encounter Fracture morphology: unspecified fracture morphology Fracture type: closed Laterality: right Qualified Code(s): S82.831A - Other fracture of upper and lower end of right fibula, initial encounter for closed fracture (3) Closed fracture of tibial plateau Encounter type: initial encounter Laterality: right Qualified Code(s): S82.141A - Displaced bicondylar fracture of right tibia, initial encounter for closed fracture
[2022-01-05] MEDS: TOPIRAMATE 50 MG TAB PO SCH (20:35)
[2022-01-06] MEDS: HEPARIN SOD 5,000 UNIT/0.5 ML VIAL SQ SCH ×3 (05:34→21:56)
[2022-01-06] MEDS: LEVOTHYROXINE SODIUM 50 MCG TABLET PO SCH (05:34)
[2022-01-06 07:18] LABS: Albumin Globulin Ratio 1.4 (0.9-2); Albumin Level 3.3 gm/dl (3.4-5.0); BUN Creatinine Ratio 22.9 (10-20); Bilirubin,Total 0.4 mg/dl (0.2-1.0); Calcium 8.8 mg/dl (8.5-10.1); Est GFR (African American) 63.6 ml/min; Est GFR (Non-African American) 54.9 ml/min; Globulin 2.4 gm/dl (2.5-4.0); Potassium 4.2 mmol/L (3.5-5.1); Total Protein 5.7 gm/dl (6.0-8.3)
[2022-01-06] MEDS: MoRPHine SULFATE 2 MG/ML CARP IV PRN ×3 (07:33→20:10)
[2022-01-06] MEDS: predniSONE 5 MG TAB PO SCH (07:34)
[2022-01-06] MEDS: METAXALONE 800 MG TABLET PO SCH ×4 (07:34→20:18)
[2022-01-06] MEDS: FERROUS SULFATE 325 MG TAB PO SCH ×2 (07:34→17:20)
[2022-01-06] MEDS: DULoxetine HCL 60 MG CAP PO SCH (07:34)
[2022-01-06] MEDS: lamoTRIgine 100 MG TAB PO SCH ×2 (07:35→20:15)
[2022-01-06] MEDS: PANTOprazole 40 MG TAB PO SCH ×2 (07:35→20:15)
[2022-01-06] MEDS: GABAPENTIN 300 MG CAP PO SCH ×4 (07:35→20:16)
[2022-01-06] MEDS: ACETAMINOPHEN 500 MG TAB PO SCH ×3 (07:40→23:29)
[2022-01-06] MEDS: bisacodyL 5 MG TABEC PO SCH (09:34)
[2022-01-06] MEDS: POLYETHYLENE (MIRALAX) 17 GM PACK PO SCH (09:34)
[2022-01-06] MEDS: LIDOCAINE 5% 1 PATCH TD SCH (09:34)
[2022-01-06] MEDS: oxyCODONE HCL IR 5 MG TAB (IMMEDIATE RELEASE) PO PRN ×3 (09:36→22:36)
--- NOTE | 2022-01-06 15:42 | Ultrasound Report ---
US liver CLINICAL HISTORY: transaminitis COMPARISON STUDY: CT of the abdomen and pelvis August 18, 2018. FINDINGS: This study is compromised by suboptimal penetration. Pancreas is obscured. Liver morphology is normal. Lateral segment hepatic cysts shown on CT are obscured on this study. Common bile duct is dilated, measuring 1.2 cm in caliber. This is similar to CT of August 18, 2018. The gallbladder is distended. There are numerous gallstones within the gallbladder. There is no gallbladder wall thicken ing. No sonographic Villalobos sign was elicited. There is no right hydronephrosis. IMPRESSION: 1. Moderate dilatation of the common bile duct, similar to CT of August 18, 2018. Correlation with o bstructive liver function tests is recommended. 2. Cholelithiasis with gallbladder distention. No convincing evidence for acute cholecystitis given l ack of sonographic Villalobos sign and no gallbladder wall thickening. If suspicion for acute cholecystit is, a hepatobiliary scan could be obtained. 3. Obscured pancreas. ACT 112: Negative or not required by law. Electronically signed by: Juan Canseco M.D. 01/06/2022 3:40 PM
[2022-01-06] MEDS: SODIUM CHLORIDE 0.9% 500 ML IV SCH (16:46)
[2022-01-06] MEDS: TOPIRAMATE 50 MG TAB PO SCH (20:17)
[2022-01-07] MEDS: SODIUM CHLORIDE 0.9% 500 ML IV SCH ×4 (01:54→21:10)
[2022-01-07] MEDS: oxyCODONE HCL IR 5 MG TAB (IMMEDIATE RELEASE) PO PRN (05:31)
[2022-01-07] MEDS: LEVOTHYROXINE SODIUM 50 MCG TABLET PO SCH (05:31)
[2022-01-07] MEDS: HEPARIN SOD 5,000 UNIT/0.5 ML VIAL SQ SCH ×3 (05:32→21:24)
[2022-01-07 06:54] LABS: Hematocrit (blood only) 30.5 % (37-47); Hemoglobin 9.9 g/dL (12.0-16.0); Mean Corpuscular Hemoglobin 31.8 pg (25-34); Mean Corpuscular Hgb Conc 32.5 g/dL (32-36); Mean Corpuscular Volume 98.1 fL (80-100); Mean Platelet Volume 9.6 fL (7.4-10.4); Platelet Count 186 K/uL (130-400); RDW Coefficient of Variation 13.1 % (11.5-14.5); RDW Standard Deviation 46.8 fL (36.4-46.3); Red Blood Count 3.11 M/uL (4.2-5.4); White Blood Count 4.59 K/uL (4.8-10.8)
[2022-01-07] MEDS: lamoTRIgine 100 MG TAB PO SCH ×2 (08:03→21:22)
[2022-01-07] MEDS: DULoxetine HCL 60 MG CAP PO SCH (08:04)
[2022-01-07] MEDS: PANTOprazole 40 MG TAB PO SCH ×2 (08:04→21:24)
[2022-01-07] MEDS: LIDOCAINE 5% 1 PATCH TD SCH (08:04)
[2022-01-07] MEDS: FERROUS SULFATE 325 MG TAB PO SCH ×2 (08:05→21:23)
[2022-01-07] MEDS: METAXALONE 800 MG TABLET PO SCH ×4 (08:05→21:22)
[2022-01-07] MEDS: GABAPENTIN 300 MG CAP PO SCH ×4 (08:05→21:23)
[2022-01-07] MEDS: predniSONE 5 MG TAB PO SCH (08:05)
[2022-01-07] MEDS: ACETAMINOPHEN 500 MG TAB PO SCH ×2 (08:06→15:45)
[2022-01-07] MEDS: KETOROLAC TROMETHAMINE 10 MG TABLET PO PRN (08:06)
[2022-01-07] MEDS: POLYETHYLENE (MIRALAX) 17 GM PACK PO SCH (08:07)
[2022-01-07] MEDS: bisacodyL 5 MG TABEC PO SCH (08:07)
--- NOTE | 2022-01-07 08:47 | Hospitalist Progress Note ---
Date of Service January 06, 2022 Assessment & Plan (1) Closed fracture of tibial plateau: (2) Fracture of proximal end of fibula: Plan: S/P fall CT RLE showed showed acute comminuted, slightly impacted and only minimally displaced intra-articular proximal tibial fracture. Acute, comminuted and minimally displaced proximal fibular fracture. Xray of R knee showed Impacted, nondisplaced fracture of the metaphysis of the tibial plateau. Fracture of the fibular neck. Large intra-articular effusion. Ortho on board recommended no surgical intervention plans will be for hinged knee orthosis to be fitted by the orthotics team. She will be nonweightbearing on the right lower extremity. Continue pain control PT/OT eval will need inpatient rehab Fall precaution (3) Distal radius fracture, right: Plan: S/P fall. Xray of right wrist showed showed Osteopenia with an impacted fracture of the distal radial metaphysis. Ortho on board recommended conservative management Possible plan for closed manipulation of the fracture at the bedside if needed. Might need surgery on the radius fracture in the future as per ortho continue pain control (4) Transaminitis: Plan: Liver enzyme elevated on admission with AST 146 and ALT 305 AST 99 and ALT 226 Continue to avoid nephrotoxic agents will get an U/S liver today Continue monitor LFT (5) HTN (hypertension): Plan: BP stable (6) Hypothyroidism: Plan: -Continue levothyroxine (7) CKD (chronic kidney disease), stage III: Plan: -Creatinine 0.89 today, BUN 12 follow with a.m. labs (8) Bipolar II disorder: Plan: -Continue Lamictal 150 mg twice daily -Possible that Lamictal is causing elevated transaminases (9) Borderline personality disorder: (10) Fibromyalgia: (11) Spinal stenosis, lumbar region with neurogenic claudication: Plan: -History of such, stable, continue pain medication as above (12) Sacroiliac joint disease: Plan: -History of such, stable, patient noted that she uses cane intermittently at home -PT/OT consults DVT PPx on heparin subq CODE: DNR/DNI Disposition Will need placement to rehab Admission and Anticipated Discharge Date Admission Date: January 04, 2022 Subjective Pt was seen and examined for follow up of fracture of tibial plateau and Right distal radius fracture Lying in bed with no acute distress Pt said that pain is control Denies any chest pain, palpitation, dizziness, shortness of breath. Review of Systems Review of Systems: All systems reviewed & are unremarkable except as noted in Subjective Physical Exam Physical Exam: General- No acute distress Head- atraumatic Eyes- PERRL, EOMI, ENT- oropharynx clear Neck- supple, no JVD Lungs- clear to auscultation Heart- regular rhythm; no murmur Abdomen- normal bowel sounds, soft, nontender Extremities- splint in right wrist and forearm + able to move all of her fingers, +right knee immobilizer, +tenderness if tried to move RLE Neuro- alert, oriented x 3; PERRL, EOMI; no facial palsy; no dysarthria Skin- warm & dry Results & Data Results & Data ([facility]) Vital Signs (Past 12 Hours) Vital Signs Temp Pulse Resp BP BP Pulse Ox 01/07/22 06:56 36.6 C 58 L 18 105/68 97 01/06/22 23:49 36.8 C 73 16 143/58 H 96 01/06/22 21:51 36.6 C 87 16 109/70 92 (1) Closed fracture of tibial plateau Encounter type: initial encounter Laterality: right Qualified Code(s): S82.141A - Displaced bicondylar fracture of right tibia, initial encounter for closed fracture (2) Fracture of proximal end of fibula Encounter type: initial encounter Fracture morphology: unspecified fracture morphology Fracture type: closed Laterality: right Qualified Code(s): S82.831A - Other fracture of upper and lower end of right fibula, initial encounter for closed fracture (3) Distal radius fracture, right Encounter type: initial encounter Fracture morphology: unspecified fracture morphology Fracture type: closed Qualified Code(s): S52.501A - Unspecified fracture of the lower end of right radius, initial encounter for closed fracture
[2022-01-07] MEDS: MoRPHine SULFATE 2 MG/ML CARP IV PRN (10:09)
[2022-01-07] MEDS: ONDANSETRON INJ 2 MG/ML 2 ML VIAL IV PRN (10:12)
--- NOTE | 2022-01-07 12:05 | Gastrointestinal Consultation ---
Date of Consultation January 07, 2022 Assessment & Plan (1) Transaminitis: (2) Dilated intrahepatic bile duct: We will rule out bile duct obstruction with MRCP. If MRCP is negative then most likely transaminitis is related to stress, hospitalization, effective medications (topiramate, duloxetine and lamotrigine all associated with transaminase elevations - though not common), or possibly she may have passed a small amount of gallbladder sludge. Supervising Physician Co-Signing Physician Notes Patient was admitted 3 days ago for a fracture, noted to have elevated lft's since admission, recent abd rolando with findings of chronically elevated cbd. She is asymptomatic regarding the lft findings. MRCP for further evaluation of elevated lft's and abd rolando findings. Agree with further plan of care. History of Present Illness Reason for Consultation: Abnormal LFT,CBD dilatation,Gallstones Requesting Physician: Dr. Chavez Attending Physician: Ronaldo Chavez MD History of Present Illness Ms. Kerline Odom is a 66 yr old female pt of Dr. Osman w a hx of bipolar type II, depression, fibromyalgia, borderline personality disorder, IBS, HTN, hypothyroidism, CKD stage III, fibromyalgia, lumbar spinal stenosis an SI joint dysfunction.She presented 3 days ago for a fracture. GI is consulted for elevated LFTs and a chronically dilated bile duct on imaging. The patient denies any abdominal pain yellow eyes yellow skin dark urine fever chills sweats. Though LFTs were higher the past few days, today T bili 0.4, AST 96, ALT 226, alkaline phos and lipase are normal. No leukocytosis. Ultrasound with a chronically dilated CBD at 1.2 cm there is also note of gallstones and a distended gallbladder but no wall thickening. Allergies Allergy/AdvReac Type Severity Reaction Status Date / Time cyclobenzaprine Allergy Intermediate RASH AND Verified 06/26/20 11:32 SWELLING fentanyl Allergy Intermediate MAJOR FEET Verified 06/26/20 11:32 SWELLING oxcarbazepine Allergy Unknown UNKNOWN - Verified 06/26/20 11:32 PT DOESN'T REMEMBER risperidone AdvReac Intermediate exhaustion Verified 06/26/20 11:32 clonazepam AdvReac Mild nausea Verified 06/26/20 11:32 Home Medications Medication Instructions Recorded Confirmed Type prednisone 5 mg tablet 5 mg PO QAM 08/18/18 01/04/22 History ferrous sulfate 325 mg (65 mg 325 mg PO BIDM #1 tab 12/23/19 01/04/22 Rx iron) tablet,delayed release levothyroxine 50 mcg tablet 50 mcg PO DAILYBB #1 tab 12/23/19 01/04/22 Rx (Synthroid) acetaminophen 500 mg tablet 1,000 mg PO Q4H PRN MDD 6 tablets 03/20/20 01/04/22 History (Tylenol Extra Strength) per day metaxalone 800 mg tablet 800 mg PO QID 03/20/20 01/04/22 History omeprazole 20 mg capsule,delayed 20 mg PO BID 03/20/20 01/04/22 History release ondansetron 8 mg disintegrating 8 mg PO Q8H PRN 03/20/20 01/04/22 History tablet diclofenac sodium 1 % topical gel 2 g EXT TID #1 tube 06/20/20 01/04/22 Rx (Voltaren) duloxetine 60 mg capsule,delayed 120 mg PO QAM #60 cap 06/20/20 01/04/22 Rx release gabapentin 300 mg capsule 300 mg PO QID 30 Days #120 cap 06/20/20 01/04/22 Rx lamotrigine 150 mg tablet 150 mg PO BID #60 tab 06/20/20 01/04/22 Rx melatonin 3 mg tablet 3 mg PO HS PRN #30 tab 06/20/20 01/04/22 Rx topiramate 100 mg tablet 150 mg PO HS #30 tab 06/20/20 01/04/22 Rx lidocaine 4 % topical patch 1 patch TOPICAL DAILY PRN 06/26/20 01/04/22 History (Salonpas (lidocaine)) losartan 50 mg tablet 50 mg PO QAM tab 06/26/20 01/04/22 History ketorolac 10 mg tablet 10 mg PO QID PRN 01/04/22 01/04/22 History Patient History Medical History Bipolar II disorder Psychiatry and Neurofeedback Borderline personality disorder C. difficile diarrhea Chronic pain CKD (chronic kidney disease), stage III Drug overdose Fibromyalgia Hip dislocation, left (~03/2020) Hypertension Hypokalemia Hyponatremia Hypothyroidism IBS (irritable bowel syndrome) Leg length discrepancy Polypharmacy Pressure injury of sacral region, stage 1 Recurrent Clostridioides difficile diarrhea Surgical History H/O carpal tunnel repair H/O inguinal hernia repair S/P cataract surgery Status post total hip replacement, left Family History Father Lung cancer associated cerebellar ataxia Macular degeneration Mother Pacemaker Other Cancer Heart disease Hypertension Lung disease Social History Smoking Status: Former smoker Tobacco Type: Cigarettes Second Hand Exposure: No; Hx Alcohol Use: No Hx Substance Use: Yes Last Used Substance: Days (ago) Last Used Substance Other:: Atleast 2 days ago for Kratom. Marijuana more then 24hrs. 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 Physical Exam Constitutional: well developed, + thin and cooperative Eyes: PERRL, conjunctivae normal, anicteric sclerae Respiratory: normal respiratory effort, lungs clear to auscultation Cardiovascular: RRR, no murmur, no edema Gastrointestinal (Abdomen): normal bowel sounds, soft, nontender, no hepatosplenomegaly Skin: no rashes, warm and dry Neurologic: PERRL, EOMI, accommodation nl, no face palsy, no dysarthria awake; not confused Psychiatric: A+Ox3, euthymic affect Orientation: alert, oriented x 3 and cooperative Results & Data ([facility]) Vital Signs (Past 12 Hours) Vital Signs Temp Pulse Resp BP Pulse Ox 01/07/22 06:56 36.6 C 58 L 18 105/68 97 Laboratory Results See HPI for LFTs WBC 4.5, Hb 9, HCT 30, PLT S186, NA 137, K4.2, CL 110, CO2 21, BUN 24, CR 1.05, glucose 105 Diagnostic Findings US 01/06/22; 1. Moderate dilatation of the common bile duct, similar to CT of August 18, 2018. Correlation with obstructive liver function tests is recommended. 2. Cholelithiasis with gallbladder distention. No convincing evidence for acute cholecystitis given lack of sonographic Villalobos sign and no gallbladder wall thickening. If suspicion for acute cholecystitis, a hepatobiliary scan could be obtained. 3. Obscured pancreas.
[2022-01-07] MEDS ORDERED: LORazepam 1 MG in SYRINGE 0.5 ML IV PRN (13:00)
--- NOTE | 2022-01-07 17:29 | Hospitalist Progress Note ---
Date of Service January 07, 2022 Assessment & Plan (1) Closed fracture of tibial plateau: (2) Fracture of proximal end of fibula: Plan: S/P fall CT RLE showed showed acute comminuted, slightly impacted and only minimally displaced intra-articular proximal tibial fracture. Acute, comminuted and minimally displaced proximal fibular fracture. Xray of R knee showed Impacted, nondisplaced fracture of the metaphysis of the tibial plateau. Fracture of the fibular neck. Large intra-articular effusion. Ortho on board recommended no surgical intervention plans will be for hinged knee orthosis to be fitted by the orthotics team. She will be nonweightbearing on the right lower extremity. Continue pain control PT/OT eval will need inpatient rehab Fall precaution Pain remains reasonably controlled as of today (3) Distal radius fracture, right: Plan: S/P fall. Xray of right wrist showed showed Osteopenia with an impacted fracture of the distal radial metaphysis. Ortho on board recommended conservative management Possible plan for closed manipulation of the fracture at the bedside if needed. Might need surgery on the radius fracture in the future as per ortho continue pain control (4) Transaminitis: Plan: Liver enzyme elevated on admission with AST 146 and ALT 305 AST 99 and ALT 226 Continue to avoid nephrotoxic agents will get an U/S liver today -moderate dilatation of the common bile duct, similar to CT August 18. Cholelithiasis with gallbladder distention no convincing evidence of acute cholecystitis We will get GI evaluation-will have MRCP 01/07/2022 On (5) HTN (hypertension): Plan: BP stable (6) Hypothyroidism: Plan: -Continue levothyroxine (7) CKD (chronic kidney disease), stage III: Plan: -Creatinine 0.89 today, BUN 12 follow with a.m. labs (8) Bipolar II disorder: Plan: -Continue Lamictal 150 mg twice daily -Possible that Lamictal is causing elevated transaminases (9) Borderline personality disorder: (10) Fibromyalgia: (11) Spinal stenosis, lumbar region with neurogenic claudication: Plan: -History of such, stable, continue pain medication as above (12) Sacroiliac joint disease: Plan: -History of such, stable, patient noted that she uses cane intermittently at home -PT/OT consults DVT PPx on heparin subq CODE: DNR/DNI Disposition Will need placement to rehab Admission and Anticipated Discharge Date Admission Date: January 04, 2022 Subjective 01/07/2022 The patient was seen and examined in medical floor She complains to have pain in the right upper and lower extremities Denies any abdominal pain, distention, nausea and or vomiting Review of Systems Review of Systems: All systems reviewed and are unremarkable except as noted below Physical Exam Physical Exam: Lying in bed comfortably Constitutional: well developed, well nourished and + ill appearing Eyes: PERRL, conjunctivae normal, anicteric sclerae ENMT: external ear and nose normal, oropharynx normal Neck: trachea midline, no thyromegaly Respiratory: no respiratory distress Auscultation: lungs clear to auscultation bilaterally Cardiovascular: Rate/Rhythm: regular rate and regular rhythm; not tachycardic Heart Sounds: normal S1 and normal S2; no murmur Extremities: + edema (Edema of the right lower extremity) Gastrointestinal (Abdomen): Inspection/Auscultation: normal bowel sounds; abdomen not distended Percussion/Palpation: abdomen soft; abdomen nontender Musculoskeletal: Pain in the right upper extremity and right lower extremity especially around the knee joint Neurologic: Alert, awake and oriented x3. Generally weak Lymphatic: no cervical or axillary lymphadenopathy Results & Data Results & Data ([facility]) Vital Signs (Past 12 Hours) Vital Signs Temp Pulse Resp BP Pulse Ox 01/07/22 06:56 36.6 C 58 L 18 105/68 97 Laboratory Results Short CBC 01/07/22 Range/Units 06:31 WBC 4.59 L (4.8-10.8) K/uL Hgb 9.9 L (12.0-16.0) g/dL Hct 30.5 L (37-47) % Plt Count 186 (130-400) K/uL Medications Administered Current Inpatient Medications Acetaminophen (Acetaminophen 500 Mg Tab) 1,000 mg PO Q8H IVAN Stop: 02/03/22 15:59 Last Admin: 01/07/22 15:45 Dose: 1,000 mg Documented by: Bisacodyl (Bisacodyl 5 Mg Tabec) 5 mg PO DAILY IVAN Stop: 02/04/22 08:59 Last Admin: 01/07/22 08:07 Dose: Not Given Documented by: Duloxetine HCl (Duloxetine Hcl 60 Mg Cap) 120 mg PO QAM IVAN Stop: 02/04/22 08:59 Last Admin: 01/07/22 08:04 Dose: 120 mg Documented by: Ferrous Sulfate (Ferrous Sulfate 325 Mg Tab) 325 mg PO BIDM [facility] Stop: 02/03/22 16:59 Last Admin: 01/07/22 08:05 Dose: 325 mg Documented by: Gabapentin (Gabapentin 300 Mg Cap) 300 mg PO QID [facility] Stop: 02/03/22 16:59 Last Admin: 01/07/22 13:39 Dose: 300 mg Documented by: Heparin Sodium (Porcine) (Heparin Sod 5,000 Unit/0.5 Ml Vial) 5,000 units SQ Q8 [facility] Stop: 02/03/22 21:59 Last Admin: 01/07/22 15:45 Dose: 5,000 units Documented by: Sodium Chloride (Nss) 500 mls @ 60 mls/hr IV .Q8H20M [facility] Stop: 02/05/22 11:59 Last Admin: 01/07/22 13:40 Dose: Not Given Documented by: Lorazepam 1 mg/ Syringe 1 mls @ 2 mls/min IV Q8H PRN PRN Reason: Anxiety Stop: 02/06/22 12:59 Ketorolac Tromethamine (Ketorolac Tromethamine 10 Mg Tablet) 10 mg PO QID PRN PRN Reason: Pain Stop: 01/09/22 15:17 Last Admin: 01/07/22 08:06 Dose: 10 mg Documented by: Lamotrigine (Lamotrigine 100 Mg Tab) 150 mg PO BID [facility] Stop: 02/03/22 20:59 Last Admin: 01/07/22 08:03 Dose: 150 mg Documented by: Levothyroxine Sodium (Levothyroxine Sodium 50 Mcg Tablet) 50 mcg PO DAILYBB [facility] Stop: 02/04/22 06:29 Last Admin: 01/07/22 05:31 Dose: 50 mcg Documented by: Lidocaine (Lidocaine 5% 1 Patch) 1 patch TD [facility] Stop: 02/05/22 08:59 Last Admin: 01/07/22 08:04 Dose: 1 patch Documented by: Losartan Potassium (Losartan Potassium 50 Mg Tab) 50 mg PO QAM [facility] Stop: 02/04/22 08:59 Last Admin: 01/05/22 11:53 Dose: Not Given Documented by: Metaxalone (Metaxalone 800 Mg Tablet) 800 mg PO QID [facility] Stop: 02/03/22 16:59 Last Admin: 01/07/22 13:39 Dose: 800 mg Documented by: Miscellaneous (Remove Lidoderm Patch) 1 ea N/A DAILY@2100 [facility] Stop: 02/05/22 20:59 Last Admin: 01/06/22 21:56 Dose: 1 ea Documented by: Morphine Sulfate (Morphine Sulfate 2 Mg/Ml Carp) 2 mg IV Q4H PRN PRN Reason: Pain Stop: 01/18/22 15:17 Last Admin: 01/07/22 10:09 Dose: 2 mg Documented by: Ondansetron HCl (Ondansetron Inj 2 Mg/Ml 2 Ml Vial) 4 mg IV Q4H PRN PRN Reason: Nausea And Vomiting Stop: 02/03/22 15:17 Last Admin: 01/07/22 10:12 Dose: 4 mg Documented by: Oxycodone HCl (Oxycodone Hcl Ir 5 Mg Tab (Immediate Release)) 5 mg PO Q6H PRN PRN Reason: Moderate Pain Stop: 01/20/22 08:40 Last Admin: 01/07/22 05:31 Dose: 5 mg Documented by: Pantoprazole Sodium (Pantoprazole 40 Mg Tab) 40 mg PO BID [facility] Stop: 02/03/22 20:59 Last Admin: 01/07/22 08:04 Dose: 40 mg Documented by: Polyethylene Glycol (Polyethylene (Miralax) 17 Gm Pack) 17 gm PO DAILY [facility] Stop: 02/04/22 08:59 Last Admin: 01/07/22 08:07 Dose: Not Given Documented by: Prednisone (Prednisone 5 Mg Tab) 5 mg PO QAM IVAN Stop: 02/04/22 08:59 Last Admin: 01/07/22 08:05 Dose: 5 mg Documented by: Topiramate (Topiramate 50 Mg Tab) 150 mg PO HS [facility] Stop: 02/03/22 20:59 Last Admin: 01/06/22 20:17 Dose: 150 mg Documented by: (1) Closed fracture of tibial plateau Encounter type: initial encounter Laterality: right Qualified Code(s): S82.141A - Displaced bicondylar fracture of right tibia, initial encounter for closed fracture (2) Fracture of proximal end of fibula Encounter type: initial encounter Fracture morphology: unspecified fracture morphology Fracture type: closed Laterality: right Qualified Code(s): S82.831A - Other fracture of upper and lower end of right fibula, initial encounter for closed fracture (3) Distal radius fracture, right Encounter type: initial encounter Fracture morphology: unspecified fracture morphology Fracture type: closed Qualified Code(s): S52.501A - Unspecified fracture of the lower end of right radius, initial encounter for closed fracture
--- NOTE | 2022-01-07 19:38 | Magnetic Resonance Report ---
MR MRCP CLINICAL HISTORY: elevated LFTs, dilated Bile duct TECHNIQUE: Multiplanar multisequence MR images were obtained of the abdomen, followed by reconstruct ion of MRCP imaging. COMPARISON: Right upper quadrant ultrasound from 01/06/[address] abdomen from 08/18/2018 FINDINGS: This is a limited examination as patient stated she could not tolerate the full study. Liver: There is homogeneous signal intensity seen within the liver. No mass lesions are seen. There i s no evidence for intrahepatic or duct dilatation. Gallbladder: The gallbladder is distended with evidence for cholelithiasis. There is no evidence for wall thickening or pericholecystic edema. Spleen: There is homogeneous signal throughout the splenic parenchyma. No mass lesions are seen. Pancreas: The pancreas is homogeneous in signal There is no evidence for a mass lesion. Kidneys: There is homogeneous signal throughout the renal parenchyma bilaterally. Adrenal glands: There is homogeneous signal demonstrated with no gross mass seen. Abdominal cavity: There is no gross bowel dilatation. There is no evidence for ascites or adenopathy. The aorta is normal in caliber. The visualized osseous structures, demonstrate no evidence of abnormal signal intensity. MRCP: Compared to the previous studies, there is again dilatation of the common bile duct which measu res approximately 11 to 12 mm. This is unchanged . This is most likely physiologic for this patient. There is no intraluminal filling defects or evidence for choledocholithiasis. There is no intrahepat ic or duct dilatation. The pancreatic duct is normal in course and caliber. IMPRESSION: 1. Persistent dilatation of the common bile duct with no evidence for choledocholithiasis on this prado ited study. 2. Cholelithiasis. ACT 112: Negative or not required by law. Electronically signed by: Baldev Baltazar M.D. 01/07/2022 7:36 PM
[2022-01-07] MEDS: TOPIRAMATE 50 MG TAB PO SCH (21:22)
[2022-01-08] MEDS: ACETAMINOPHEN 500 MG TAB PO SCH ×3 (00:59→16:06)
[2022-01-08] MEDS: HEPARIN SOD 5,000 UNIT/0.5 ML VIAL SQ SCH ×3 (05:16→21:55)
[2022-01-08] MEDS: LEVOTHYROXINE SODIUM 50 MCG TABLET PO SCH (05:17)
[2022-01-08] MEDS: oxyCODONE HCL IR 5 MG TAB (IMMEDIATE RELEASE) PO PRN ×3 (06:06→20:55)
[2022-01-08 06:44] LABS: Albumin Globulin Ratio 1.5 (0.9-2); Albumin Level 3.3 gm/dl (3.4-5.0); Bilirubin,Total 0.5 mg/dl (0.2-1.0); Calcium 9.2 mg/dl (8.5-10.1); Creatinine Clr Calc Pharmacy 51.5 ml/min; Est GFR (African American) 62.9 ml/min; Est GFR (Non-African American) 54.3 ml/min; Globulin 2.2 gm/dl (2.5-4.0); Potassium 4.1 mmol/L (3.5-5.1); Total Protein 5.5 gm/dl (6.0-8.3)
[2022-01-08] MEDS: bisacodyL 5 MG TABEC PO SCH (08:16)
[2022-01-08] MEDS: LIDOCAINE 5% 1 PATCH TD SCH (08:17)
[2022-01-08] MEDS: METAXALONE 800 MG TABLET PO SCH ×4 (08:17→20:54)
[2022-01-08] MEDS: POLYETHYLENE (MIRALAX) 17 GM PACK PO SCH (08:17)
[2022-01-08] MEDS: lamoTRIgine 100 MG TAB PO SCH ×2 (08:18→20:51)
[2022-01-08] MEDS: GABAPENTIN 300 MG CAP PO SCH ×4 (08:18→20:53)
[2022-01-08] MEDS: PANTOprazole 40 MG TAB PO SCH ×2 (08:18→20:52)
[2022-01-08] MEDS: DULoxetine HCL 60 MG CAP PO SCH (08:18)
[2022-01-08] MEDS: predniSONE 5 MG TAB PO SCH (08:18)
[2022-01-08] MEDS: FERROUS SULFATE 325 MG TAB PO SCH ×2 (08:19→18:01)
[2022-01-08] MEDS: MoRPHine SULFATE 2 MG/ML CARP IV PRN ×2 (08:19→22:32)
--- NOTE | 2022-01-08 11:26 | Gastroenterology Progress Note ---
Date of Service January 08, 2022 Assessment & Plan (1) Common bile duct dilation: Plan: Chronic, unchanged since 2019. Has gallstones but no RUQ or post prandial pain. (2) Transaminitis: Plan: Acute on chronic - improving past few days. ? med related or fatty liver. Plan: Discussed further testing such as EUS as OP though not compelling reason to go forward as dilation is chronic and pt does not have symptoms of biliary colic. Pt prefers to avoid additional testing unless required. Pt to discuss possible OP EUS w PCP. Pt will also discuss possible referral to GI for chronic LFT elevation. If decides to go forward with EUS - it is not urgent. GI will sign off. Please notify us of new/worsening GI issues. Admission and Anticipated Discharge Date Admission Date: January 04, 2022 Supervising Physician Co-Signing Physician Notes No reports of abdominal pain but with chronic elevated lft's and cbd dilation on imaging. Given asymptomatic, the patient is going to think over her options and discuss with her pcp. Possible outpt eus can be considered. She was admitted for a fracture with incidental finding of elevated lft's - further outpt workup can be considered with aih serologies, acute hepatitis panel, iron studies to rule out hemochromatosis. Limit narcotics if taken regularly as sometimes narcotics can cause a dilated cbd. Subjective 66, female, admit for fall and fx. US with 1.2mm bile duct, mentioned unchanged since 2019. MRCP w 11 mm bile duct. Both w gallstones but no wall thickening. Denies any recent abdominal pain, distention, nausea/vomiting, yellow eyes or skin. Has moderate chronic transaminase elevation, improving past few day . Review of Systems Review of Systems: ROS: Gen: Denies weakness, fevers, weight loss Eyes: No eye redness, or pain, no recent vision changes Resp: No SOB, no cough Cardio: No palpitations/irregular beats, no chest pain GI: As per HPI : Denies pain on urination Skin: No jaundice, itching or new rashes M/S: rt leg pain consistent with fx. Physical Exam Constitutional: well developed, + thin and cooperative Eyes: PERRL, conjunctivae normal, anicteric sclerae ENMT: external ear and nose normal, oropharynx normal Neck: trachea midline, no thyromegaly Respiratory: normal respiratory effort, lungs clear to auscultation Cardiovascular: RRR, no murmur, no edema Gastrointestinal (Abdomen): normal bowel sounds, soft, nontender, no hepatosplenomegaly Skin: no rashes, warm and dry Neurologic: PERRL, EOMI, accommodation nl, no face palsy, no dysarthria awake; not confused Psychiatric: A+Ox3, euthymic affect Orientation: alert, oriented x 3 and cooperative Results & Data ([facility]) Vital Signs (Past 12 Hours) Vital Signs Temp Pulse Resp BP BP Pulse Ox 01/08/22 09:01 36.7 C 82 18 116/72 96 01/07/22 23:20 36.4 C L 67 15 135/72 97 Laboratory Results WBC 4.5, Hb 9.9, Hct 30.5, Plts 186, Na 139, K 4.1, Cl 110, CO2 25, BUN 17, Cr 1.06, glucose 106. Diagnostic Findings MRCP 01/07/22: 1. No significant change in the infiltrative hypodense mass within the pancr eatic head and neck since CT of December 18, 2021. Associated pancreatic ductal dilatation. Mild intrahepatic biliary ductal dilatation. This is suggestive of pancreatic adenocarcinoma. 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 2. No bowel obstruction. 3. No significant change since prior CT. Liver US; 1. Moderate dilatation of the common bile duct, similar to CT of August 18, 2018. Correlation with obstructive liver function tests is recommended. 2. Cholelithiasis with gallbladder distention. No convincing evidence for acute cholecystitis given lack of sonographic Villalobos sign and no gallbladder wall thickening. If suspicion for acute cholecystitis, a hepatobiliary scan could be obtained. 3. Obscured pancreas.
[2022-01-08] MEDS: KETOROLAC TROMETHAMINE 10 MG TABLET PO PRN (11:36)
--- NOTE | 2022-01-08 16:52 | Hospitalist Progress Note ---
Date of Service January 08, 2022 Assessment & Plan (1) Closed fracture of tibial plateau: Plan: As below (2) Fracture of proximal end of fibula: Plan: S/P fall CT RLE showed showed acute comminuted, slightly impacted and only minimally displaced intra-articular proximal tibial fracture. Acute, comminuted and minimally displaced proximal fibular fracture. Xray of R knee showed Impacted, nondisplaced fracture of the metaphysis of the tibial plateau. Fracture of the fibular neck. Large intra-articular effusion. Ortho on board recommended no surgical intervention plans will be for hinged knee orthosis to be fitted by the orthotics team. She will be nonweightbearing on the right lower extremity. Continue pain control PT/OT eval -recommended rehab Fall precaution Pain remains reasonably controlled as of today Accepted to [facility] and will be transferred tomorrow (3) Distal radius fracture, right: Plan: S/P fall. Xray of right wrist showed showed Osteopenia with an impacted fracture of the distal radial metaphysis. Ortho on board recommended conservative management Possible plan for closed manipulation of the fracture at the bedside if needed. Might need surgery on the radius fracture in the future as per ortho continue pain control (4) Transaminitis: Plan: Liver enzyme elevated on admission with AST 146 and ALT 305 AST 99 and ALT 226 Continue to avoid nephrotoxic agents will get an U/S liver today -moderate dilatation of the common bile duct, similar to CT August 18. Cholelithiasis with gallbladder distention no convincing evidence of acute cholecystitis We will get GI evaluation-will have MRCP 01/07/2022 Has chronic elevation of the LFTs with dilation of the common bile duct-no further studies at this time and GI signed off (5) HTN (hypertension): Plan: BP stable (6) Hypothyroidism: Plan: -Continue levothyroxine (7) CKD (chronic kidney disease), stage III: Plan: -Creatinine 0.89 today, BUN 12 follow with a.m. labs (8) Bipolar II disorder: Plan: -Continue Lamictal 150 mg twice daily -Possible that Lamictal is causing elevated transaminases (9) Borderline personality disorder: (10) Fibromyalgia: (11) Spinal stenosis, lumbar region with neurogenic claudication: Plan: -History of such, stable, continue pain medication as above (12) Sacroiliac joint disease: Plan: -History of such, stable, patient noted that she uses cane intermittently at home -PT/OT consults DVT PPx on heparin subq CODE: DNR/DNI Disposition Will need placement to rehab Admission and Anticipated Discharge Date Admission Date: January 04, 2022 Subjective 01/07/2022 The patient was seen and examined in medical floor She complains to have pain in the right upper and lower extremities Denies any abdominal pain, distention, nausea and or vomiting 01/08/2022 The patient was seen and examined in medical floor She has been complaining of pain in the right upper extremity and right lower extremity Participating with physical therapy reasonably Denies any abdominal pain Review of Systems Review of Systems: All systems reviewed and are unremarkable except as noted below Physical Exam Physical Exam: Lying in bed comfortably Constitutional: well developed, well nourished and + ill appearing Eyes: PERRL, conjunctivae normal, anicteric sclerae ENMT: external ear and nose normal, oropharynx normal Neck: trachea midline, no thyromegaly Respiratory: no respiratory distress Auscultation: lungs clear to auscultation bilaterally Cardiovascular: Rate/Rhythm: regular rate and regular rhythm; not tachycardic Heart Sounds: normal S1 and normal S2; no murmur Extremities: + edema (Edema of the right lower extremity) Gastrointestinal (Abdomen): Inspection/Auscultation: normal bowel sounds; abdomen not distended Percussion/Palpation: abdomen soft; abdomen nontender Musculoskeletal: Right lower extremity swollen and painful with movement Neurologic: Alert, awake and oriented x3 Lymphatic: no cervical or axillary lymphadenopathy Results & Data Results & Data ([facility]) Vital Signs (Past 12 Hours) Vital Signs Temp Pulse Resp BP BP Pulse Ox 01/08/22 15:35 36.9 C 67 16 115/73 96 01/08/22 09:01 36.7 C 82 18 116/72 96 Laboratory Results [facility] 01/08/22 05:51 Sodium 139 Potassium 4.1 Chloride 110 H Carbon Dioxide 25 BUN 17 Creatinine 1.06 Glucose 106 H Calcium 9.2 Liver Function 01/08/22 Range/Units 05:51 Total Bilirubin 0.5 (0.2-1.0) mg/dl AST 61 H (13-39) U/L ALT 157 H (7-52) U/L Alkaline Phosphatase 51 (34-104) U/L Albumin 3.3 L (3.4-5.0) gm/dl Medications Administered Current Inpatient Medications Acetaminophen (Acetaminophen 500 Mg Tab) 1,000 mg PO Q8H [facility] Stop: 02/03/22 15:59 Last Admin: 01/08/22 16:06 Dose: 1,000 mg Documented by: Bisacodyl (Bisacodyl 5 Mg Tabec) 5 mg PO DAILY [facility] Stop: 02/04/22 08:59 Last Admin: 01/08/22 08:16 Dose: Not Given Documented by: Duloxetine HCl (Duloxetine Hcl 60 Mg Cap) 120 mg PO QAM [facility] Stop: 02/04/22 08:59 Last Admin: 01/08/22 08:18 Dose: 120 mg Documented by: Ferrous Sulfate (Ferrous Sulfate 325 Mg Tab) 325 mg PO BIDM [facility] Stop: 02/03/22 16:59 Last Admin: 01/08/22 08:19 Dose: 325 mg Documented by: Gabapentin (Gabapentin 300 Mg Cap) 300 mg PO QID [facility] Stop: 02/03/22 16:59 Last Admin: 01/08/22 13:26 Dose: 300 mg Documented by: Heparin Sodium (Porcine) (Heparin Sod 5,000 Unit/0.5 Ml Vial) 5,000 units SQ Q8 [facility] Stop: 02/03/22 21:59 Last Admin: 01/08/22 13:28 Dose: 5,000 units Documented by: Lorazepam 1 mg/ Syringe 1 mls @ 2 mls/min IV Q8H PRN PRN Reason: Anxiety Stop: 02/06/22 12:59 Last Admin: 01/07/22 17:34 Dose: 2 mls/min Documented by: Ketorolac Tromethamine (Ketorolac Tromethamine 10 Mg Tablet) 10 mg PO QID PRN PRN Reason: Pain Stop: 01/09/22 15:17 Last Admin: 01/08/22 11:36 Dose: 10 mg Documented by: Lamotrigine (Lamotrigine 100 Mg Tab) 150 mg PO BID [facility] Stop: 02/03/22 20:59 Last Admin: 01/08/22 08:18 Dose: 150 mg Documented by: Levothyroxine Sodium (Levothyroxine Sodium 50 Mcg Tablet) 50 mcg PO DAILYBB [facility] Stop: 02/04/22 06:29 Last Admin: 01/08/22 05:17 Dose: 50 mcg Documented by: Lidocaine (Lidocaine 5% 1 Patch) 1 patch TD QAM [facility] Stop: 02/05/22 08:59 Last Admin: 01/08/22 08:17 Dose: 1 patch Documented by: Losartan Potassium (Losartan Potassium 50 Mg Tab) 50 mg PO QAM [facility] Stop: 02/04/22 08:59 Last Admin: 01/05/22 11:53 Dose: Not Given Documented by: Metaxalone (Metaxalone 800 Mg Tablet) 800 mg PO QID [facility] Stop: 02/03/22 16:59 Last Admin: 01/08/22 13:26 Dose: 800 mg Documented by: Miscellaneous (Remove Lidoderm Patch) 1 ea N/A DAILY@2100 [facility] Stop: 02/05/22 20:59 Last Admin: 01/07/22 21:24 Dose: 1 ea Documented by: Morphine Sulfate (Morphine Sulfate 2 Mg/Ml Carp) 2 mg IV Q4H PRN PRN Reason: Pain Stop: 01/18/22 15:17 Last Admin: 01/08/22 08:19 Dose: 2 mg Documented by: Ondansetron HCl (Ondansetron Inj 2 Mg/Ml 2 Ml Vial) 4 mg IV Q4H PRN PRN Reason: Nausea And Vomiting Stop: 02/03/22 15:17 Last Admin: 01/07/22 10:12 Dose: 4 mg Documented by: Oxycodone HCl (Oxycodone Hcl Ir 5 Mg Tab (Immediate Release)) 5 mg PO Q6H PRN PRN Reason: Moderate Pain Stop: 01/20/22 08:40 Last Admin: 01/08/22 12:32 Dose: 5 mg Documented by: Pantoprazole Sodium (Pantoprazole 40 Mg Tab) 40 mg PO BID [facility] Stop: 02/03/22 20:59 Last Admin: 01/08/22 08:18 Dose: 40 mg Documented by: Polyethylene Glycol (Polyethylene (Miralax) 17 Gm Pack) 17 gm PO DAILY [facility] Stop: 02/04/22 08:59 Last Admin: 01/08/22 08:17 Dose: Not Given Documented by: Prednisone (Prednisone 5 Mg Tab) 5 mg PO QAM [facility] Stop: 02/04/22 08:59 Last Admin: 01/08/22 08:18 Dose: 5 mg Documented by: Topiramate (Topiramate 50 Mg Tab) 150 mg PO HS [facility] Stop: 02/03/22 20:59 Last Admin: 01/07/22 21:22 Dose: 150 mg Documented by: (1) Closed fracture of tibial plateau Encounter type: initial encounter Laterality: right Qualified Code(s): S82.141A - Displaced bicondylar fracture of right tibia, initial encounter for closed fracture (2) Fracture of proximal end of fibula Encounter type: initial encounter Fracture morphology: unspecified fracture morphology Fracture type: closed Laterality: right Qualified Code(s): S82.831A - Other fracture of upper and lower end of right fibula, initial encounter for closed fracture (3) Distal radius fracture, right Encounter type: initial encounter Fracture morphology: unspecified fracture morphology Fracture type: closed Qualified Code(s): S52.501A - Unspecified fracture of the lower end of right radius, initial encounter for closed fracture
[2022-01-08] MEDS: TOPIRAMATE 50 MG TAB PO SCH (20:52)
[2022-01-09] MEDS: ACETAMINOPHEN 500 MG TAB PO SCH ×2 (01:02→07:33)
[2022-01-09] MEDS: LEVOTHYROXINE SODIUM 50 MCG TABLET PO SCH (05:25)
[2022-01-09] MEDS: oxyCODONE HCL IR 5 MG TAB (IMMEDIATE RELEASE) PO PRN ×2 (05:25→11:57)
[2022-01-09] MEDS: HEPARIN SOD 5,000 UNIT/0.5 ML VIAL SQ SCH (05:26)
[2022-01-09] MEDS: lamoTRIgine 100 MG TAB PO SCH (07:25)
[2022-01-09] MEDS: DULoxetine HCL 60 MG CAP PO SCH (07:25)
[2022-01-09] MEDS: PANTOprazole 40 MG TAB PO SCH (07:26)
[2022-01-09] MEDS: FERROUS SULFATE 325 MG TAB PO SCH (07:27)
[2022-01-09] MEDS: predniSONE 5 MG TAB PO SCH (07:27)
[2022-01-09] MEDS: GABAPENTIN 300 MG CAP PO SCH (07:28)
[2022-01-09] MEDS: METAXALONE 800 MG TABLET PO SCH (07:28)
[2022-01-09] MEDS: LIDOCAINE 5% 1 PATCH TD SCH (07:29)
[2022-01-09] MEDS: POLYETHYLENE (MIRALAX) 17 GM PACK PO SCH (07:29)
[2022-01-09] MEDS: bisacodyL 5 MG TABEC PO SCH (07:33)
--- NOTE | 2022-01-09 09:31 | Hospitalist Progress Note ---
Date of Service January 09, 2022 Assessment & Plan (1) Closed fracture of tibial plateau: Plan: As below (2) Fracture of proximal end of fibula: Plan: S/P fall CT RLE showed showed acute comminuted, slightly impacted and only minimally displaced intra-articular proximal tibial fracture. Acute, comminuted and minimally displaced proximal fibular fracture. Xray of R knee showed Impacted, nondisplaced fracture of the metaphysis of the tibial plateau. Fracture of the fibular neck. Large intra-articular effusion. Ortho on board recommended no surgical intervention plans will be for hinged knee orthosis to be fitted by the orthotics team. She will be nonweightbearing on the right lower extremity. Continue pain control PT/OT eval -recommended rehab Fall precaution Pain remains reasonably controlled Accepted to [facility] and will be transferred tomorrow Remains medically stable to be transferred to [facility] this afternoon (3) Distal radius fracture, right: Plan: S/P fall. Xray of right wrist showed showed Osteopenia with an impacted fracture of the distal radial metaphysis. Ortho on board recommended conservative management Possible plan for closed manipulation of the fracture at the bedside if needed. Might need surgery on the radius fracture in the future as per ortho continue pain control (4) Transaminitis: Plan: Liver enzyme elevated on admission with AST 146 and ALT 305 AST 99 and ALT 226 Continue to avoid nephrotoxic agents will get an U/S liver today -moderate dilatation of the common bile duct, similar to CT August 18. Cholelithiasis with gallbladder distention no convincing evidence of acute cholecystitis We will get GI evaluation-will have MRCP 01/07/2022 Has chronic elevation of the LFTs with dilation of the common bile duct-no further studies at this time and GI signed off (5) HTN (hypertension): Plan: BP stable (6) Hypothyroidism: Plan: -Continue levothyroxine (7) CKD (chronic kidney disease), stage III: Plan: -Creatinine 0.89 today, BUN 12 follow with a.m. labs (8) Bipolar II disorder: Plan: -Continue Lamictal 150 mg twice daily -Possible that Lamictal is causing elevated transaminases -No acute issues (9) Borderline personality disorder: (10) Fibromyalgia: Plan: Remains stable (11) Spinal stenosis, lumbar region with neurogenic claudication: Plan: -History of such, stable, continue pain medication as above (12) Sacroiliac joint disease: Plan: -History of such, stable, patient noted that she uses cane intermittently at home -PT/OT consults DVT PPx -Discussed with Ortho Xarelto 10 mg daily CODE: DNR/DNI Disposition She will be transferred to [facility] this afternoon Admission and Anticipated Discharge Date Admission Date: January 04, 2022 Subjective 01/07/2022 The patient was seen and examined in medical floor She complains to have pain in the right upper and lower extremities Denies any abdominal pain, distention, nausea and or vomiting 01/08/2022 The patient was seen and examined in medical floor She has been complaining of pain in the right upper extremity and right lower extremity Participating with physical therapy reasonably Denies any abdominal pain 01/09/2022 The patient was seen and examined in medical floor She has been stable and feels much better as she will be going to [facility] this afternoon She denies any abdominal pain, nausea and or vomiting Her pain in the right upper and lower extremities is better Review of Systems Review of Systems: All systems reviewed and are unremarkable except as noted below Physical Exam Physical Exam: Lying in bed comfortably Constitutional: well developed, well nourished and + ill appearing Eyes: PERRL, conjunctivae normal, anicteric sclerae ENMT: external ear and nose normal, oropharynx normal Neck: trachea midline, no thyromegaly Respiratory: no respiratory distress Auscultation: lungs clear to auscultation bilaterally Cardiovascular: Rate/Rhythm: regular rate and regular rhythm; not tachycardic Heart Sounds: normal S1 and normal S2; no murmur Extremities: + edema (Edema of the right lower extremity) Gastrointestinal (Abdomen): Inspection/Auscultation: normal bowel sounds; abdomen not distended Percussion/Palpation: abdomen soft; abdomen nontender Musculoskeletal: Right knee pain with movement and right forearm pain Neurologic: normal touch/pain/proprioception Lymphatic: no cervical or axillary lymphadenopathy Results & Data Results & Data ([facility]) Vital Signs (Past 12 Hours) Vital Signs Temp Pulse Resp BP BP Pulse Ox 01/09/22 07:42 36.3 C L 67 20 135/77 98 01/08/22 22:14 36.6 C 63 18 137/88 97 Medications Administered Current Inpatient Medications Acetaminophen (Acetaminophen 500 Mg Tab) 1,000 mg PO Q8H [facility] Stop: 02/03/22 15:59 Last Admin: 01/09/22 07:33 Dose: 1,000 mg Documented by: Bisacodyl (Bisacodyl 5 Mg Tabec) 5 mg PO DAILY [facility] Stop: 02/04/22 08:59 Last Admin: 01/09/22 07:33 Dose: 5 mg Documented by: Duloxetine HCl (Duloxetine Hcl 60 Mg Cap) 120 mg PO QAM [facility] Stop: 02/04/22 08:59 Last Admin: 01/09/22 07:25 Dose: 120 mg Documented by: Ferrous Sulfate (Ferrous Sulfate 325 Mg Tab) 325 mg PO BIDM [facility] Stop: 02/03/22 16:59 Last Admin: 01/09/22 07:27 Dose: 325 mg Documented by: Gabapentin (Gabapentin 300 Mg Cap) 300 mg PO QID [facility] Stop: 02/03/22 16:59 Last Admin: 01/09/22 07:28 Dose: 300 mg Documented by: Heparin Sodium (Porcine) (Heparin Sod 5,000 Unit/0.5 Ml Vial) 5,000 units SQ Q8 [facility] Stop: 02/03/22 21:59 Last Admin: 01/09/22 05:26 Dose: 5,000 units Documented by: Lorazepam 1 mg/ Syringe 1 mls @ 2 mls/min IV Q8H PRN PRN Reason: Anxiety Stop: 02/06/22 12:59 Last Admin: 01/07/22 17:34 Dose: 2 mls/min Documented by: Ketorolac Tromethamine (Ketorolac Tromethamine 10 Mg Tablet) 10 mg PO QID PRN PRN Reason: Pain Stop: 01/09/22 15:17 Last Admin: 01/08/22 11:36 Dose: 10 mg Documented by: Lamotrigine (Lamotrigine 100 Mg Tab) 150 mg PO BID [facility] Stop: 02/03/22 20:59 Last Admin: 01/09/22 07:25 Dose: 150 mg Documented by: Levothyroxine Sodium (Levothyroxine Sodium 50 Mcg Tablet) 50 mcg PO DAILYBB [facility] Stop: 02/04/22 06:29 Last Admin: 01/09/22 05:25 Dose: 50 mcg Documented by: Lidocaine (Lidocaine 5% 1 Patch) 1 patch TD QAM [facility] Stop: 02/05/22 08:59 Last Admin: 01/09/22 07:29 Dose: 1 patch Documented by: Losartan Potassium (Losartan Potassium 50 Mg Tab) 50 mg PO QAM [facility] Stop: 02/04/22 08:59 Last Admin: 01/05/22 11:53 Dose: Not Given Documented by: Metaxalone (Metaxalone 800 Mg Tablet) 800 mg PO QID [facility] Stop: 02/03/22 16:59 Last Admin: 01/09/22 07:28 Dose: 800 mg Documented by: Miscellaneous (Remove Lidoderm Patch) 1 ea N/A DAILY@2100 [facility] Stop: 02/05/22 20:59 Last Admin: 01/08/22 20:54 Dose: 1 ea Documented by: Morphine Sulfate (Morphine Sulfate 2 Mg/Ml Carp) 2 mg IV Q4H PRN PRN Reason: Pain Stop: 01/18/22 15:17 Last Admin: 01/08/22 22:32 Dose: 2 mg Documented by: Ondansetron HCl (Ondansetron Inj 2 Mg/Ml 2 Ml Vial) 4 mg IV Q4H PRN PRN Reason: Nausea And Vomiting Stop: 02/03/22 15:17 Last Admin: 01/07/22 10:12 Dose: 4 mg Documented by: Oxycodone HCl (Oxycodone Hcl Ir 5 Mg Tab (Immediate Release)) 5 mg PO Q6H PRN PRN Reason: Moderate Pain Stop: 01/20/22 08:40 Last Admin: 01/09/22 05:25 Dose: 5 mg Documented by: Pantoprazole Sodium (Pantoprazole 40 Mg Tab) 40 mg PO BID [facility] Stop: 02/03/22 20:59 Last Admin: 01/09/22 07:26 Dose: 40 mg Documented by: Polyethylene Glycol (Polyethylene (Miralax) 17 Gm Pack) 17 gm PO DAILY [facility] Stop: 02/04/22 08:59 Last Admin: 01/09/22 07:29 Dose: 17 gm Documented by: Prednisone (Prednisone 5 Mg Tab) 5 mg PO QAM [facility] Stop: 02/04/22 08:59 Last Admin: 01/09/22 07:27 Dose: 5 mg Documented by: Topiramate (Topiramate 50 Mg Tab) 150 mg PO HS [facility] Stop: 02/03/22 20:59 Last Admin: 01/08/22 20:52 Dose: 150 mg Documented by: (1) Distal radius fracture, right Encounter type: initial encounter Fracture morphology: unspecified fracture morphology Fracture type: closed Qualified Code(s): S52.501A - Unspecified fracture of the lower end of right radius, initial encounter for closed fracture (2) Fracture of proximal end of fibula Encounter type: initial encounter Fracture morphology: unspecified fracture morphology Fracture type: closed Laterality: right Qualified Code(s): S82.831A - Other fracture of upper and lower end of right fibula, initial encounter for closed fracture (3) Closed fracture of tibial plateau Encounter type: initial encounter Laterality: right Qualified Code(s): S82.141A - Displaced bicondylar fracture of right tibia, initial encounter for closed fracture
[2022-01-09] MEDS: KETOROLAC TROMETHAMINE 10 MG TABLET PO PRN (10:21)
--- NOTE | 2022-01-09 17:47 | Discharge Summary ---
Date of Service January 09, 2022 Admission HPI Per Admitting Provider This is a 66-year-old female with PMHx of bipolar type II, depressed, fibromyalgia, borderline personality disorder, IBS, HTN, hypothyroidism, CKD stage III, who presents status post 2 falls which occurred yesterday afternoon. She reports that she was walking down the stairs and her right heel slipped off of the edge of a step and went down 3 stairs landing on a concrete floor. She had right knee pain and was having difficulty ambulating at that point time so decided to use a cane. She was switching between using the cane in her left and right hand, however is right-hand dominant. She fell again while the cane was in her left hand, causing her to go down and landed on on the right outstretched hand. She denies any injury to the head or loss of consciousness or presyncopal symptoms. In the evening she set up her bed in order to be able to reach everything without needing to get up, however this morning due to difficulty and increased pain despite medication with Tylenol she called EMS. She denies any numbness or tingling in the distal right leg but has been feeling shocklike waves of pain going up and down the leg. She was able to take all of her routinely scheduled home medications. She lives at home by herself, owns 2 cats. X-ray of the right knee shows impacted, nondisplaced fracture of the metaphysis of the tibial plateau, fracture of the fibular neck large intra-articular effusion. X-ray of the right wrist shows impacted fracture of the distal radial metaphysis. Admission Exam Per Admitting Provider Physical Exam: General: awake, alert, no apparent distress Head: Normocephalic, atraumatic ENT: PERRL, EOMI, no pharyngeal exudate, mucous membranes moist Chest: Clear to auscultation, on room air, no adventitious breath sounds Cardiac: Regular rate and rhythm, no murmur, no JVD, normal peripheral pulses, good capillary refill Abdominal: NABS x 4 quadrants, soft, nondistended, nontender to palpation, no rebound or guarding Extremities: Right wrist splinted, right leg splinted, ice pack on place, no peripheral edema or erythema, able to move the right ankle without difficulty, left calf nontender to palpation Psych: Normal mood and affect Neuro: AAO x 3, strength intact bilaterally and rated 5/5 except for the right leg and right arm which was not tested due to fracture, no motor deficits, speech is clear, no peripheral sensory deficits Principal Diagnosis Right distal radial fracture, right proximal fibula fracture and right proximal tibial fracture-conservative management, chronic transaminitis, hypothyroidism Discharge Exam Lying in bed comfortably Constitutional well developed, well nourished and + ill appearing Eyes PERRL, conjunctivae normal, anicteric sclerae ENMT external ear and nose normal, oropharynx normal Neck trachea midline, no thyromegaly Respiratory no respiratory distress Auscultation: lungs clear to auscultation bilaterally Cardiovascular Rate/Rhythm: regular rate and regular rhythm; not tachycardic Heart Sounds: normal S1 and normal S2; no murmur Extremities: + edema (Edema of the right lower extremity) Gastrointestinal (Abdomen) Inspection/Auscultation: normal bowel sounds; abdomen not distended Percussion/Palpation: abdomen soft; abdomen nontender Neurologic normal touch/pain/proprioception Lymphatic no cervical or axillary lymphadenopathy Discharge Data Allergies Allergy/AdvReac Type Severity Reaction Status Date / Time cyclobenzaprine Allergy Intermediate RASH AND Verified 06/26/20 11:32 SWELLING fentanyl Allergy Intermediate MAJOR FEET Verified 06/26/20 11:32 SWELLING oxcarbazepine Allergy Unknown UNKNOWN - Verified 06/26/20 11:32 PT DOESN'T REMEMBER risperidone AdvReac Intermediate exhaustion Verified 06/26/20 11:32 clonazepam AdvReac Mild nausea Verified 06/26/20 11:32 Consultations 01/04/22 12:16 ED Decision to Admit Stat 01/04/22 13:05 Consult Orthopedic Surgery Routine 01/07/22 11:58 Consult Gastroenterology Routine Ordered Studies 01/04/22 20:26 CT tib/fib RT wo con Routine 01/06/22 08:04 US liver Routine 01/07/22 12:28 MR MRCP Routine Hospital Course (1) Closed fracture of tibial plateau: As below (2) Fracture of proximal end of fibula: S/P fall CT RLE showed showed acute comminuted, slightly impacted and only minimally displaced intra-articular proximal tibial fracture. Acute, comminuted and minimally displaced proximal fibular fracture. Xray of R knee showed Impacted, nondisplaced fracture of the metaphysis of the tibial plateau. Fracture of the fibular neck. Large intra-articular effusion. Ortho on board recommended no surgical intervention plans will be for hinged knee orthosis to be fitted by the orthotics team. She will be nonweightbearing on the right lower extremity. Continue pain control PT/OT eval -recommended rehab Fall precaution Pain remains reasonably controlled Accepted to [facility] and will be transferred tomorrow Remains medically stable to be transferred to [facility] this afternoon (3) Distal radius fracture, right: S/P fall. Xray of right wrist showed showed Osteopenia with an impacted fracture of the distal radial metaphysis. Ortho on board recommended conservative management Possible plan for closed manipulation of the fracture at the bedside if needed. Might need surgery on the radius fracture in the future as per ortho continue pain control (4) Transaminitis: Liver enzyme elevated on admission with AST 146 and ALT 305 AST 99 and ALT 226 Continue to avoid nephrotoxic agents will get an U/S liver today -moderate dilatation of the common bile duct, similar to CT August 18. Cholelithiasis with gallbladder distention no convincing evidence of acute cholecystitis We will get GI evaluation-will have MRCP 01/07/2022 Has chronic elevation of the LFTs with dilation of the common bile duct-no further studies at this time and GI signed off (5) HTN (hypertension): BP stable (6) Hypothyroidism: -Continue levothyroxine (7) CKD (chronic kidney disease), stage III: -Creatinine 0.89 today, BUN 12 follow with a.m. labs (8) Bipolar II disorder: -Continue Lamictal 150 mg twice daily -Possible that Lamictal is causing elevated transaminases -No acute issues (9) Borderline personality disorder: (10) Fibromyalgia: Remains stable (11) Spinal stenosis, lumbar region with neurogenic claudication: -History of such, stable, continue pain medication as above (12) Sacroiliac joint disease: -History of such, stable, patient noted that she uses cane intermittently at home -PT/OT consults DVT PPx -Discussed with Ortho Xarelto 10 mg daily CODE: DNR/DNI Disposition She will be transferred to [facility] this afternoon Total Time Total Time Spent Total Time Spent (In Minutes): 45 minutes Discharge Plan Discharge Items Patient Disposition: Transfer Inpatient Rehab Fac Reason For Visit: R RADIAL FX, R KNEE AND R TIBIAL FX Discharge Diagnosis: Right distal radial fracture, right proximal fibula fracture and right proximal tibial fracture-conservative management, chronic transaminitis, hypothyroidism Condition on Discharge: Fair Activity: As commented below Activity Comment: Continue PT and OT Weightbearing: Right non-weightbearing Weightbearing Comment: non weightbearing on right arm and right foot Non-emergency contact: Surgeon Call non-emergency contact if: you have any medication questions and your symptoms worsen Follow-up/Referrals: Arpit Osman MD [Primary Care Provider] - Jose Raul Murray MD [Surgeon] - (Follow up with Dr Murray in 1 week for repeat xrays of your tibia and wrist. ) Diet: Regular Addtl Attending Provider Instructions: Please take precautions to avoid falls Please keep appointment with your healthcare provider After discussion with the orthopedic surgeon aspirin was changed to Xarelto 10 mg daily Addtl Records Analyst Provider Instructions: You must be non weightbearing on your right upper and lower extremity. You must wear the knee brace at all times except for changing clothes or bathing. NO RANGE OF MOTION OF THE RIGHT KNEE AT THIS TIME. Maintain your right wrist splint. Do not remove it. Please call the office with any questions or concerns. [phone] Murray in 1 week for repeat xrays of your tibia and wrist. Pending Studies at Discharge: No Stand-Alone Forms: My [facility] Skilled Items Patient informed of condition?: Yes DNR: Yes Discharge Level of Care: Acute rehab Communicable Disease: No Discharge Prognosis: Stable Lines: None Urinary Catheter: No Medications and DC Order Prescriptions: New oxycodone 5 mg Tablet 5 mg PO Q6H PRN (Reason: pain) 5 Days Qty: 20 RF: 0 Xarelto 10 mg tablet 10 mg PO DAILY 30 Days Qty: 30 RF: 0 Continued lidocaine [Salonpas (lidocaine)] 4 % adhesive patch,medicated 1 patch topical DAILY PRN (Reason: Pain) RF: 0 losartan 50 mg tablet 50 mg PO QAM RF: 0 prednisone 5 mg Tablet 5 mg PO QAM RF: 0 levothyroxine [Synthroid] 50 mcg Tablet 50 mcg PO DAILYBB Qty: 1 RF: 0 ferrous sulfate 325 mg (65 mg iron) Tablet,Delayed Release (Dr/Ec) 325 mg PO BIDM Qty: 1 RF: 0 acetaminophen [Tylenol Extra Strength] 500 mg Tablet 1,000 mg PO Q4H MDD 6 tablets per day PRN (Reason: Pain) RF: 0 ondansetron 8 mg tablet,disintegrating 8 mg PO Q8H PRN (Reason: Nausea) RF: 0 omeprazole 20 mg capsule,delayed release(DR/EC) 20 mg PO BID RF: 0 metaxalone 800 mg tablet 800 mg PO QID RF: 0 melatonin 3 mg Tablet 3 mg PO HS PRN (Reason: sleep) Qty: 30 RF: 0 diclofenac sodium [Voltaren] 1 % Gel 2 g EXT TID Qty: 1 RF: 0 lamotrigine 150 mg tablet 150 mg PO BID Qty: 60 RF: 0 gabapentin 300 mg capsule 300 mg PO QID 30 Days Qty: 120 RF: 0 topiramate 100 mg tablet 150 mg PO HS Qty: 30 RF: 0 duloxetine 60 mg Capsule,Delayed Release(Dr/Ec) 120 mg PO QAM Qty: 60 RF: 0 ketorolac 10 mg tablet 10 mg PO QID PRN (Reason: Pain) RF: 0 Discharge Orders: Discharge Order (Routine); Ordered 01/09/22 Ordered By: Ronaldo Chavez Admission Data Admit Date/Time: 01/04/22 13:05 Attending Provider: Ronaldo Chavez Admit Provider: Jo Stark Primary Care Provider: Arpit Osman Other Providers: Jo Stark ; Asif Doan ; [facility] ; [facility] ; Ira Hilario ; Monserrat Donovan ; Edgar Bender ; Casie Story ; Min Coreas ; Kamran Rm ; Brody Auguste ; Charlie Valerio ; Sigrid Lorenzo ; Connie Dickinson ; Orquidea Arellano ; Brenda Gonzalez ; Selvin Chi
== END 2022-01-09 12:44 | DRG 563 ==
LOC: ED 11:13 → EDINP 13:05 → SUATTDRO 13:05 → 3E 15:19

== ENCOUNTER 2022-12-04 09:09 | Inpatient (IN) ==
[2022-12-04] MEDS ORDERED: MoRPHine SULFATE 4 MG/ML 1 ML CARP\\VIAL IV STA ×2 (09:14→21:13)
--- NOTE | 2022-12-04 09:41 | Emergency Department Note ---
Impression & Plan Fall, Closed fracture of right hip, Forehead contusion ED Provider Note Provider: Mode Bills MD DATE OF SERVICE: 12/04/2022 CHIEF COMPLAINT: Fall, right hip pain HISTORY OF PRESENT ILLNESS: Patient is a 67-year-old female history of hypertension, CKD, bipolar disorder, fibromyalgia, IBS, chronic pain presenting here from [place] today. Evidently states she was up to use the bathroom last night and had a urinary accident and slipped and fell to the floor landing on her right hip. Significant pain there. Try to get up and bumped her right forehead. No loss of conscious reported. Is unable to get up and walk and laid there until found this morning. Significant pain in the right hip with denies pain in the left leg. Prior left hip replacement. Denies new numbness or tingl ing in the extremities. Denies significant headache currently or any chest pain or shortness of breath. Denies abdominal pain. Received morphine prior to arrival in the ambulance but still in significant pain by her report. Denies use of blood thinners. PAST MEDICAL HISTORY: As noted above MEDICATIONS: Reviewed home medications SOCIAL HISTORY: Resides at [facility] PHYSICAL EXAM: GENERAL: alert and oriented on the stretcher moaning and discomfort Head: Patient with an approximate 1-1/2 to 2 cm contusion above the right eyebrow. No significant lacerations or swelling appreciated. EYES: No injection, discharge or icterus. PERRL, EOMI. NECK: Trachea midline. Supple Without midline tenderness ENT: Mucous membranes pink and moist. LUNGS: Airway patent. No retractions. Breath sounds clear HEART: Regular rate and rhythm. No chest wall tenderness ABDOMEN: Soft and non-tender, without guarding or rebound. SKIN: Acyanotic, warm, dry, without rashes EXTREMITIES: No significant tenderness or deformity in the upper extremities moving freely. Left lower extremity without significant tenderness. Do note some 1-2+ edema of the bilateral lower legs some chronic stasis changes. No significant tenderness of the right ankle leg or knee. Significant tenderness with touch or trying to move the right hip region. NEUROLOGICAL: No aphasia or significant facial droop. Minimally slurred speech. Moving upper extremities freely. Unable to move the right lower extremity due to significant pain in the right hip region but gross sensation intact in lower extremities. EK bpm normal sinus rhythm. No PVC or PAC. No acute ST segment elevation or depression with a QTc of 398. CONTINUOUS CARDIAC MONITORING: was ordered and showed a heart rate of 80s-90s bpm in normal sinus rhythm GCS 15. Patient's laboratory studies and imaging reviewed. Differential includes Fracture, dislocation, contusion, intra-abdominal, pneumothorax, intrathoracic, intracranial, neurologic, compartment syndrome, rhabdomyolysis, as well as other pathologies. IMPRESSION/MEDICAL DECISION MAKIN-year-old unfortunately suffered a fall spent a good part of the night on the floor. CK was sent out with the rhabdomyolysis. No clear evidence of compartment syndrome. Contusion above the right eyebrow noted but extraocular motions intact. Not reportedly on blood thinners anticoagulation. We will complete a CT of the head and cervical spine to exclude traumatic injury to the head or neck given her fall. Chest x-ray and x-ray of the right hip to be obtained as she is significant pain with any movement of the right hip. See morphine prior arrival given small amount of additional here being cautious to avoid oversedation. Seems grossly neurologically intact with what appears to be some chronic swelling of both lower legs. Benign abdomen and stable pelvis otherwise. No significant chest wall trauma or evidence of injury to the upper extremities. Not having significant deficit low suspicion for acute CVA although some slight sleep spurring is appreciated likely this is related to the 6 mg of morphine she received prior to arrival. Blood work here with minimal anemia and slight leukocytosis may be reactive from being on the floor. CK not elevated at rhabdomyolysis. Negative COVID. No significant electrolyte abnormality identified or signs of renal dysfunction today. CT head and cervical spine without acute traumatic fractures noted there was some questionable ophthalmic vein dilation noted of unclear significance. Not having significant visual symptoms at this time. X-ray of the hip and pelvis consistent with a right hip fracture without dislocation. Discussed with patient. Will bring into the hospital for further pain control and surgical repair. Discussed with her orthopedic consultation. Given additional IV morphine and IV Tylenol. N.p.o. since last night. DIAGNOSIS: Fall, right hip fracture DISPOSITION: Hospitalist will evaluate Patient was agreeable with this plan. Past Med/Surg History Medical History Bipolar II disorder Psychiatry and Neurofeedback Borderline personality disorder C. difficile diarrhea Chronic pain CKD (chronic kidney disease), stage III Drug overdose Fibromyalgia Hip dislocation, left (~03/2020) History of suicide attempt Hypertension Hypokalemia Hyponatremia Hypothyroidism IBS (irritable bowel syndrome) Left rotator cuff tear Leg length discrepancy Polypharmacy Pressure injury of sacral region, stage 1 Recurrent Clostridioides difficile diarrhea Surgical History H/O carpal tunnel repair H/O inguinal hernia repair S/P cataract surgery Status post total hip replacement, left Family History Father Lung cancer associated cerebellar ataxia Macular degeneration Mother Pacemaker Other Cancer Heart disease Hypertension Lung disease Social History Smoking Status: Never smoker Tobacco Type: E-cigarettes / Vaping Second Hand Exposure: No; Hx Alcohol Use: No Hx Substance Use: Yes Last Used Substance: Days (ago) Last Used Substance Other:: Atleast 2 days ago for Kratom. Marijuana more then 24hrs. Substance Use Type Other:: kratom Preferred Language: Armenian Communication Ability: Effective Communication Ability Comment: AMS Visual Impairment: No Limitations Hearing Ability: Normal Map Editor Required: No Beliefs That Will Affect Care: None marital status: / Current Living Situation: Alone Current Living Situation Comment: Lives alone in a multiple level house current occupational status: retired Feels Safe at Home: Yes Assistive Devices: Cane Allergies Allergies Allergy/AdvReac Type Severity Reaction Status Date / Time cyclobenzaprine Allergy Intermediate ITCHY Verified 10/27/22 12:43 RASH, WT GAIN, DEPRESSION fentanyl Allergy Intermediate MAJOR FEET Verified 10/27/22 12:43 SWELLING ketorolac Allergy Unknown PER GMG Verified 10/27/22 12:43 oxcarbazepine Allergy Unknown UNKNOWN - Verified 10/27/22 12:43 PT DOESN'T REMEMBER clonazepam AdvReac Intermediate NAUSEA/VOMI Verified 10/27/22 12:43 TING hydrocodone AdvReac Intermediate PT DOESN'T Verified 10/27/22 12:43 LIKE WITHDRAWAL SYMPTOMS oxycodone AdvReac Intermediate PT DOESN'T Verified 10/27/22 12:43 LIKE WITHDRAWAL SYMPTOMS risperidone AdvReac Intermediate exhaustion Verified 10/27/22 12:43 Home Meds Home Medications Medication Instructions Recorded Confirmed prednisone 5 mg tablet 5 mg PO QAM 08/18/18 12/04/22 acetaminophen 500 mg tablet 1,000 mg PO Q6H PRN Pain 03/20/20 12/04/22 (Tylenol Extra Strength) metaxalone 800 mg tablet 800 mg PO QID 03/20/20 12/04/22 omeprazole 20 mg capsule,delayed 20 mg PO BID 03/20/20 12/04/22 release ondansetron 8 mg disintegrating 8 mg translingual Q8H PRN Nausea 03/20/20 12/04/22 tablet losartan 50 mg tablet 50 mg PO QAM 06/26/20 12/04/22 acyclovir 5 % topical ointment 1 applic topical 6XD PRN LIP SORES 10/27/22 12/04/22 (Zovirax) SOON SYMPTOMS START. albuterol sulfate 90 mcg/actuation 2 puff inhalation QID PRN 10/27/22 12/04/22 aerosol inhaler Shortness Of Breath Or Wheezing diclofenac sodium 1 % topical gel 2 g topical QID PRN Pain 10/27/22 12/04/22 fluticasone propionate 50 2 spray intranasal DAILY PRN 10/27/22 12/04/22 mcg/actuation nasal Congestion spray,suspension lidocaine 5 % topical patch 1 patch topical DAILY PRN Pain 10/27/22 12/04/22 oxycodone 5 mg tablet 2.5 mg PO Q8H PRN pain 10/27/22 10/27/22 polyethylene glycol 3350 17 17 g PO DAILY PRN Constipation 10/27/22 12/04/22 gram/dose oral powder (Miralax) Previous Rx's Medication Instructions Recorded ferrous sulfate 325 mg (65 mg 325 mg PO BIDM #1 tab 12/23/19 iron) tablet,delayed release levothyroxine 50 mcg tablet 50 mcg PO DAILYBB #1 tab 12/23/19 (Synthroid) duloxetine 60 mg capsule,delayed 120 mg PO QAM #60 caps 06/20/20 release gabapentin 300 mg capsule 300 mg PO QID 30 days #120 caps 06/20/20 lamotrigine 150 mg tablet 150 mg PO BID #60 tabs 06/20/20 topiramate 100 mg tablet 150 mg PO HS #30 tabs 06/20/20 oxycodone 5 mg tablet See Rx Instructions .Route 10/27/22 .COMPLEX PRN pain #30 tabs Results & Data (ED) Vital Signs Vital Signs - 24 hr 12/04/22 09:13 12/04/22 09:17 12/04/22 10:10 Temperature 36.8 C Temperature Source Oral Pulse Rate 76 71 Pulse Rate [Apical] 87 Pulse Rate from SpO2 Sensor Pulse Rhythm [Apical] Regular Respiratory Rate 22 18 Respiratory Effort / Characteristics Non-Labored Spontaneous Non-Labored Spontaneous Respiratory Depth Normal Normal Respiratory Pattern Regular Regular Blood Pressure 136/99 Blood Pressure [Left Arm] Blood Pressure [Right Arm] 157/85 H Blood Pressure Mean 111 Blood Pressure Mean [Left Arm] Blood Pressure Mean [Right Arm] 109 Blood Pressure Position Semi-fowlers Blood Pressure Position [Left Arm] Blood Pressure Position [Right Arm] Semi-fowlers Pulse Oximetry 97 93 Oxygen Delivery Method Room Air Room Air Sepsis Recent Fever Within 48 Hours No Sepsis New/Unexplained Change in Mental Status No Sepsis Action Taken by Nursing No Action Required 12/04/22 09:12 12/04/22 09:30 12/04/22 09:31 Temperature Temperature Source Pulse Rate 74 72 Pulse Rate [Apical] Pulse Rate from SpO2 Sensor 74 73 71 Pulse Rhythm [Apical] Respiratory Rate 24 14 24 Respiratory Effort / Characteristics Respiratory Depth Respiratory Pattern Blood Pressure Blood Pressure [Left Arm] Blood Pressure [Right Arm] Blood Pressure Mean Blood Pressure Mean [Left Arm] Blood Pressure Mean [Right Arm] Blood Pressure Position Blood Pressure Position [Left Arm] Blood Pressure Position [Right Arm] Pulse Oximetry 90 95 96 Oxygen Delivery Method Sepsis Recent Fever Within 48 Hours Sepsis New/Unexplained Change in Mental Status Sepsis Action Taken by Nursing 12/04/22 09:31 12/04/22 10:00 12/04/22 10:01 Temperature Temperature Source Pulse Rate 79 Pulse Rate [Apical] Pulse Rate from SpO2 Sensor 80 Pulse Rhythm [Apical] Respiratory Rate 21 Respiratory Effort / Characteristics Respiratory Depth Respiratory Pattern Blood Pressure 167/109 H 172/111 H Blood Pressure [Left Arm] Blood Pressure [Right Arm] Blood Pressure Mean 128 131 Blood Pressure Mean [Left Arm] Blood Pressure Mean [Right Arm] Blood Pressure Position Blood Pressure Position [Left Arm] Blood Pressure Position [Right Arm] Pulse Oximetry 92 Oxygen Delivery Method Sepsis Recent Fever Within 48 Hours Sepsis New/Unexplained Change in Mental Status Sepsis Action Taken by Nursing 12/04/22 10:01 12/04/22 10:10 12/04/22 10:10 Temperature Temperature Source Pulse Rate 83 89 Pulse Rate [Apical] Pulse Rate from SpO2 Sensor 82 83 Pulse Rhythm [Apical] Respiratory Rate 21 21 Respiratory Effort / Characteristics Respiratory Depth Respiratory Pattern Blood Pressure 157/85 H Blood Pressure [Left Arm] Blood Pressure [Right Arm] Blood Pressure Mean 109 Blood Pressure Mean [Left Arm] Blood Pressure Mean [Right Arm] Blood Pressure Position Blood Pressure Position [Left Arm] Blood Pressure Position [Right Arm] Pulse Oximetry 93 92 Oxygen Delivery Method Sepsis Recent Fever Within 48 Hours Sepsis New/Unexplained Change in Mental Status Sepsis Action Taken by Nursing 12/04/22 10:44 12/04/22 11:00 12/04/22 11:11 Temperature Temperature Source Pulse Rate 90 Pulse Rate [Apical] Pulse Rate from SpO2 Sensor 89 Pulse Rhythm [Apical] Respiratory Rate 19 Respiratory Effort / Characteristics Respiratory Depth Respiratory Pattern Blood Pressure 165/100 H Blood Pressure [Left Arm] Blood Pressure [Right Arm] Blood Pressure Mean 121 Blood Pressure Mean [Left Arm] Blood Pressure Mean [Right Arm] Blood Pressure Position Blood Pressure Position [Left Arm] Blood Pressure Position [Right Arm] Pulse Oximetry 94 96 Oxygen Delivery Method Sepsis Recent Fever Within 48 Hours Sepsis New/Unexplained Change in Mental Status Sepsis Action Taken by Nursing 12/04/22 11:11 12/04/22 11:30 12/04/22 11:30 Temperature Temperature Source Pulse Rate 88 91 H Pulse Rate [Apical] Pulse Rate from SpO2 Sensor 88 Pulse Rhythm [Apical] Respiratory Rate 15 21 Respiratory Effort / Characteristics Respiratory Depth Respiratory Pattern Blood Pressure 193/129 H Blood Pressure [Left Arm] Blood Pressure [Right Arm] Blood Pressure Mean 150 Blood Pressure Mean [Left Arm] Blood Pressure Mean [Right Arm] Blood Pressure Position Blood Pressure Position [Left Arm] Blood Pressure Position [Right Arm] Pulse Oximetry 92 94 Oxygen Delivery Method Sepsis Recent Fever Within 48 Hours Sepsis New/Unexplained Change in Mental Status Sepsis Action Taken by Nursing 12/04/22 12:00 12/04/22 12:00 12/04/22 12:30 Temperature Temperature Source Pulse Rate 94 H 96 H Pulse Rate [Apical] Pulse Rate from SpO2 Sensor Pulse Rhythm [Apical] Respiratory Rate 21 20 Respiratory Effort / Characteristics Respiratory Depth Respiratory Pattern Blood Pressure 154/92 H Blood Pressure [Left Arm] Blood Pressure [Right Arm] Blood Pressure Mean 112 Blood Pressure Mean [Left Arm] Blood Pressure Mean [Right Arm] Blood Pressure Position Blood Pressure Position [Left Arm] Blood Pressure Position [Right Arm] Pulse Oximetry 96 95 Oxygen Delivery Method Sepsis Recent Fever Within 48 Hours Sepsis New/Unexplained Change in Mental Status Sepsis Action Taken by Nursing 12/04/22 12:31 12/04/22 12:31 12/04/22 13:00 Temperature Temperature Source Pulse Rate 97 H Pulse Rate [Apical] Pulse Rate from SpO2 Sensor Pulse Rhythm [Apical] Respiratory Rate 16 Respiratory Effort / Characteristics Respiratory Depth Respiratory Pattern Blood Pressure 173/104 H 151/93 H Blood Pressure [Left Arm] Blood Pressure [Right Arm] Blood Pressure Mean 127 112 Blood Pressure Mean [Left Arm] Blood Pressure Mean [Right Arm] Blood Pressure Position Blood Pressure Position [Left Arm] Blood Pressure Position [Right Arm] Pulse Oximetry 98 Oxygen Delivery Method Sepsis Recent Fever Within 48 Hours Sepsis New/Unexplained Change in Mental Status Sepsis Action Taken by Nursing 12/04/22 13:00 12/04/22 13:28 12/04/22 13:36 Temperature 37.1 C Temperature Source Oral Pulse Rate 95 H Pulse Rate [Apical] 94 H Pulse Rate from SpO2 Sensor 96 H Pulse Rhythm [Apical] Respiratory Rate 15 20 Respiratory Effort / Characteristics Non-Labored Respiratory Depth Normal Respiratory Pattern Regular Blood Pressure Blood Pressure [Left Arm] 159/90 H Blood Pressure [Right Arm] Blood Pressure Mean Blood Pressure Mean [Left Arm] 113 Blood Pressure Mean [Right Arm] Blood Pressure Position Blood Pressure Position [Left Arm] Lying Blood Pressure Position [Right Arm] Pulse Oximetry 92 96 Oxygen Delivery Method Room Air Room Air Sepsis Recent Fever Within 48 Hours Sepsis New/Unexplained Change in Mental Status Sepsis Action Taken by Nursing Laboratory Data 12/04/22 09:20 12/04/22 09:20 Lab Results 12/04/22 12/04/22 12/04/22 Range/Units 09:20 09:20 09:20 WBC 12.25 H (4.8-10.8) K/ul RBC 3.63 L (4.20-5.40) M/uL Hgb 11.9 L (12.0-16.0) g/dl Hct 36.0 L (37.0-47.0) % MCV 99.2 (80.0-100.0) fL MCH 32.8 (25.0-34.0) pg MCHC 33.1 (32.0-36.0) g/dL RDW Std Deviation 50.1 H (36.4-46.3) fL RDW Coeff of [place] 13.6 (11.5-14.5) % Plt Count 245 (130-400) K/uL MPV 9.3 L (9.4-12.4) fL Immature Gran % (Auto) 1.1 % Neut % (Auto) 66.4 % Lymph % (Auto) 20.4 % [place] % (Auto) 8.2 % Eos % (Auto) 3.1 % Baso % (Auto) 0.8 % Neut # (Auto) 8.13 H (1.40-6.50) K/uL Lymph # (Auto) 2.50 (1.2-3.4) K/uL [place] # (Auto) 1.01 H (0.11-0.59) K/uL Eos # (Auto) 0.38 (0-0.50) K/uL Baso # (Auto) 0.10 (0-0.2) K/uL Immature Gran # (Auto) 0.13 (0.01-0.20) K/uL PT 10.3 (9.0-12.0) Seconds INR 0.9 (0.9-1.1) Sodium 136 (136-145) mmol/L Potassium 3.9 (3.5-5.1) mmol/L Chloride 107 (98-107) mmol/L Carbon Dioxide 22 (21-32) mmol/L Anion Gap 7 (3-11) BUN 12 (6-23) mg/dl Creatinine 0.80 (0.6-1.2) mg/dl Est Cr Clr Drug Dosing 74.0 ml/min Est GFR ( Amer) 87.8 ml/min Est GFR (Non-Af Amer) 75.8 ml/min BUN/Creatinine Ratio 15.0 (10-20) Glucose 86 (70-99(Fasting)) mg/dl Calcium 9.2 (8.6-10.3) mg/dl Total Bilirubin 0.4 (0.2-1.0) mg/dl AST 20 (13-39) U/L ALT 12 (7-52) U/L Alkaline Phosphatase 58 (34-104) U/L Total Creatine Kinase 33 (26-192) U/L Total Protein 6.4 (6.0-8.3) gm/dl Albumin 3.9 (3.4-5.0) gm/dl Globulin 2.5 (2.5-4.0) gm/dl Albumin/Globulin Ratio 1.6 (0.9-2) SARS-CoV-2, RNA, NAAT (NEGATIVE) Blood Type Antibody Screen 12/04/22 12/04/22 Range/Units 09:23 09:34 WBC (4.8-10.8) K/ul RBC (4.20-5.40) M/uL Hgb (12.0-16.0) g/dl Hct (37.0-47.0) % MCV (80.0-100.0) fL MCH (25.0-34.0) pg MCHC (32.0-36.0) g/dL RDW Std Deviation (36.4-46.3) fL RDW Coeff of [place] (11.5-14.5) % Plt Count (130-400) K/uL MPV (9.4-12.4) fL Immature Gran % (Auto) % Neut % (Auto) % Lymph % (Auto) % [place] % (Auto) % Eos % (Auto) % Baso % (Auto) % Neut # (Auto) (1.40-6.50) K/uL Lymph # (Auto) (1.2-3.4) K/uL [place] # (Auto) (0.11-0.59) K/uL Eos # (Auto) (0-0.50) K/uL Baso # (Auto) (0-0.2) K/uL Immature Gran # (Auto) (0.01-0.20) K/uL PT (9.0-12.0) Seconds INR (0.9-1.1) Sodium (136-145) mmol/L Potassium (3.5-5.1) mmol/L Chloride (98-107) mmol/L Carbon Dioxide (21-32) mmol/L Anion Gap (3-11) BUN (6-23) mg/dl Creatinine (0.6-1.2) mg/dl Est Cr Clr Drug Dosing ml/min Est GFR ( Amer) ml/min Est GFR (Non-Af Amer) ml/min BUN/Creatinine Ratio (10-20) Glucose (70-99(Fasting)) mg/dl Calcium (8.6-10.3) mg/dl Total Bilirubin (0.2-1.0) mg/dl AST (13-39) U/L ALT (7-52) U/L Alkaline Phosphatase (34-104) U/L Total Creatine Kinase (26-192) U/L Total Protein (6.0-8.3) gm/dl Albumin (3.4-5.0) gm/dl Globulin (2.5-4.0) gm/dl Albumin/Globulin Ratio (0.9-2) SARS-CoV-2, RNA, NAAT NEGATIVE (NEGATIVE) Blood Type A Positive Antibody Screen NEGATIVE Administered Medications Discontinued Medications Acetaminophen (Ofirmev) 1,000 mg in 100 mls @ 400 mls/hr IV NOW STA Stop: 12/04/22 11:17 Last Admin: 12/04/22 11:07 Dose: 400 mls/hr Documented By: MASSIEL Morphine Sulfate (Morphine Sulfate 4 Mg/Ml 1 Ml Carp\\Vial) 4 mg IV NOW STA Stop: 12/04/22 09:15 Last Admin: 12/04/22 09:29 Dose: 4 mg Documented By: NA Morphine Sulfate (Morphine Sulfate 2 Mg/Ml Carp) 2 mg IV NOW STA Stop: 12/04/22 10:25 Last Admin: 12/04/22 10:43 Dose: 2 mg Documented By: NA Morphine Sulfate (Morphine Sulfate 2 Mg/Ml Carp) 2 mg IV NOW STA Stop: 12/04/22 11:04 Last Admin: 12/04/22 11:07 Dose: 2 mg Documented By: MASSIEL Imaging Data Radiologist's Impression: Cervical Spine CT 12/04/22 09:14 CT OF THE CERVICAL SPINE WITHOUT CONTRAST CLINICAL HISTORY: fall COMPARISON STUDY: Cervical spine CT October 26, 2022. TECHNIQUE: Helical axial images of the cervical spine were obtained without IV contrast. Sagittal and coronal reconstructions were viewed. Automated exposure control was utilized for the study. A dose lowering technique was utilized adhering to the principles of ALARA. FINDINGS: Reversal of the cervical lordosis with anterolisthesis of C4 on C5 is again noted. There is severe multilevel facet arthrosis and moderate to severe degenerative disc disease within the cervical spine. Extensive degenerative changes at the C1-C2 articulation are again noted. No acute cervical spine fracture is identified. There is no prevertebral edema. IMPRESSION: 1. No acute cervical spine fracture or subluxation. 2. Severe multilevel degenerative changes within the cervical spine. ACT 112: Negative or not required by law. Electronically signed by: Juan Canseco M.D. 12/04/2022 10:13 AM Chest X-Ray 12/04/22 09:14 SUPINE PORTABLE CHEST RADIOGRAPH CLINICAL HISTORY: fall COMPARISON STUDY: Chest radiograph October 26, 2022. FINDINGS: No pneumothorax is identified on supine exam. There are no airspace opacities. Pulmonary vascularity is normal. Postoperative findings within the thoracolumbar spine are partially imaged. IMPRESSION: No acute cardiopulmonary findings. ACT 112: Negative or not required by law. Electronically signed by: Juan Canseco M.D. 12/04/2022 11:[address] 12/04/22 09:14 CT OF THE HEAD WITHOUT CONTRAST CLINICAL HISTORY: fall, forehead contusion R COMPARISON STUDY: Head CT October 26, 2022. TECHNIQUE: Helical axial images of the head were obtained without IV contrast. Automated exposure control was utilized for the study. A dose lowering technique was utilized adhering to the principles of ALARA. FINDINGS: This exam is mildly compromised by motion artifact. No acute intracranial hemorrhage, midline shift or mass effect is present. Ventricular system is normal. Basal cisterns are patent. There are no extra-axial collections. White matter hypodensity suggests small vessel disease. No acute calvarial fracture is noted. There is dilatation of the bilateral superior ophthalmic veins, a new finding since CT of October 26, 2022. IMPRESSION: 1. No acute intracranial findings. Exam mildly compromised by motion artifact. 2. No calvarial fracture identified. 3. Interval development of abnormal dilatation of the bilateral superior ophthalmic veins since head CT of October 26, 2022. The etiology and clinical significance of this finding is uncertain and correlation with visual/eye symptoms is recommended. Findings discussed with Dr. Bills at time of dictation. ACT 112: Negative or not required by law. Electronically signed by: Juan Canseco M.D. 12/04/2022 10:07 AM Hip/Pelvis X-Ray 12/04/22 09:14 XR hip RT 2V w pelvis HISTORY: 67 years-old Female fall, hip pain acute right hip pain status post fall COMPARISON: 10/26/2022 TECHNIQUE: AP view the pelvis with 2 views of the right hip FINDINGS: Left hip arthroplasty. Spinal fusion hardware. Unremarkable appearance of the left hip arthroplasty. Demineralized appearance of the bones. There is an acute transcervical fracture of the right femur which demonstrates impaction with superolateral displacement of approximately 2.5 cm. No dislocation. Mild to moderate osteoarthritis of right hip. Lateral ankle soft tissue swelling. No additional acute fracture or dislocation. IMPRESSION: Acute impacted and displaced transcervical right femoral fracture. ACT 112: Negative or not required by law. The above report was generated using voice recognition software. It may contain grammatical, syntax or spelling errors. Electronically signed by: Carlitos Joy M.D. 12/04/2022 11:00 AM Discharge Plan Visit Data Chief Complaint: Fall Stated Complaint: FALL, R HIP PAIN ED Provider: Mode Bills Discharge Problem: Fall, Closed fracture of right hip, Forehead contusion Patient Disposition: Being Evaluated by Hospitalist Discharge Instructions Interventions: ED Discharge Assessment Last Done: 12/04/22 13:28 Forms Stand Alone Forms: [facility] [place] Prescriptions Prescriptions: No Action losartan 50 mg tablet 50 mg PO QAM prednisone 5 mg Tablet 5 mg PO QAM levothyroxine [Synthroid] 50 mcg Tablet 50 mcg PO DAILYBB Qty: 1 0RF ferrous sulfate 325 mg (65 mg iron) Tablet,Delayed Release (Dr/Ec) 325 mg PO BIDM Qty: 1 0RF acetaminophen [Tylenol Extra Strength] 500 mg Tablet 1,000 mg PO Q6H MDD 6 tablets per day PRN (Reason: Pain) Rx Instructions: PER PT "USUALLY 3 X DAILY". ondansetron 8 mg tablet,disintegrating 8 mg translingual Q8H PRN (Reason: Nausea) omeprazole 20 mg capsule,delayed release(DR/EC) 20 mg PO BID metaxalone 800 mg tablet 800 mg PO QID lamotrigine 150 mg tablet 150 mg PO BID Qty: 60 0RF gabapentin 300 mg capsule 300 mg PO QID 30 Days Qty: 120 0RF topiramate 100 mg tablet 150 mg PO HS Qty: 30 0RF duloxetine 60 mg Capsule,Delayed Release(Dr/Ec) 120 mg PO QAM Qty: 60 0RF acyclovir [Zovirax] 5 % Ointment 1 applic TOPICAL 6XD PRN (Reason: LIP SORES SOON SYMPTOMS START.) lidocaine 5 % Adhesive Patch,Medicated 1 patch TOPICAL DAILY PRN (Reason: Pain) Rx Instructions: leave on most painful area for up to 12 hrs polyethylene glycol 3350 [Miralax] 17 gram/dose Powder 17 g PO DAILY PRN (Reason: Constipation) albuterol sulfate 90 mcg/actuation Hfa Aerosol Inhaler 2 puff INHALATION QID PRN (Reason: Shortness Of Breath Or Wheezing) fluticasone propionate [Flonase] 50 mcg/actuation [place],Suspension 2 spray INTRANASAL DAILY PRN (Reason: Congestion) Rx Instructions: administer into each nostril diclofenac sodium [Voltaren] 1 % Gel 2 g TOPICAL QID PRN (Reason: Pain) oxycodone 5 mg tablet 2.5 mg PO Q8H MDD 1.5 TABS/DAILY PRN (Reason: pain) oxycodone 5 mg tablet See Rx Instructions .ROUTE .COMPLEX PRN (Reason: pain) Qty: 30 0RF Rx Instructions: You may take 5 to 10 mg PRN for pain every 6-8 hours. Referrals Referrals: Arpit Osman MD [Primary Care Provider] - Fall Qualifiers: Encounter type: initial encounter Qualified Code(s): W19.XXXA - Unspecified fall, initial encounter Closed fracture of right hip Qualifiers: Encounter type: initial encounter Qualified Code(s): S72.001A - Fracture of unspecified part of neck of right femur, initial encounter for closed fracture Forehead contusion Qualifiers: Encounter type: initial encounter Qualified Code(s): S00.83XA - Contusion of other part of head, initial encounter
[2022-12-04 09:59] LABS: Albumin Globulin Ratio 1.6 (0.9-2); Albumin Level 3.9 gm/dl (3.4-5.0); Bilirubin,Total 0.4 mg/dl (0.2-1.0); Calcium 9.2 mg/dl (8.6-10.3); Est GFR (African American) 87.8 ml/min; Est GFR (Non-African American) 75.8 ml/min; Globulin 2.5 gm/dl (2.5-4.0); Potassium 3.9 mmol/L (3.5-5.1); Total Protein 6.4 gm/dl (6.0-8.3)
--- NOTE | 2022-12-04 10:10 | CT Scan Report ---
CT OF THE HEAD WITHOUT CONTRAST CLINICAL HISTORY: fall, forehead contusion R COMPARISON STUDY: Head CT October 26, 2022. TECHNIQUE: Helical axial images of the head were obtained without IV contrast. Automated exposure con trol was utilized for the study. A dose lowering technique was utilized adhering to the principles o f ALARA. FINDINGS: This exam is mildly compromised by motion artifact. No acute intracranial hemorrhage, midli ne shift or mass effect is present. Ventricular system is normal. Basal cisterns are patent. There ar e no extra-axial collections. White matter hypodensity suggests small vessel disease. No acute calvar ial fracture is noted. There is dilatation of the bilateral superior ophthalmic veins, a new finding since CT of October 26, 2022. IMPRESSION: 1. No acute intracranial findings. Exam mildly compromised by motion artifact. 2. No calvarial fracture identified. 3. Interval development of abnormal dilatation of the bilateral superior ophthalmic veins since head CT of October 26, 2022. The etiology and clinical significance of this finding is uncertain and correla tion with visual/eye symptoms is recommended. Findings discussed with Dr. Bills at time of dictat ion. ACT 112: Negative or not required by law. Electronically signed by: Juan Canseco M.D. 12/04/2022 10:07 AM
[2022-12-04 10:15] LABS: Basophils % (auto) 0.8 %; Eosinophils # (auto) 0.38 K/uL (0-0.50); Eosinophils % (auto) 3.1 %; Hemoglobin 11.9 g/dl (12.0-16.0); Immature Granulocytes # (auto) 0.13 K/uL (0.01-0.20); Immature Granulocytes % (auto) 1.1 %; Lymphocytes % (auto) 20.4 %; Mean Corpuscular Hemoglobin 32.8 pg (25.0-34.0); Mean Corpuscular Hgb Conc 33.1 g/dL (32.0-36.0); Mean Corpuscular Volume 99.2 fL (80.0-100.0); Mean Platelet Volume 9.3 fL (9.4-12.4); Monocytes # (auto) 1.01 K/uL (0.11-0.59); Monocytes % (auto) 8.2 %; Neutrophils # (auto) 8.13 K/uL (1.40-6.50); Neutrophils % (auto) 66.4 %; Platelet Count 245 K/uL (130-400); RDW Coefficient of Variation 13.6 % (11.5-14.5); RDW Standard Deviation 50.1 fL (36.4-46.3); Red Blood Count 3.63 M/uL (4.20-5.40); White Blood Count 12.25 K/ul (4.8-10.8)
--- NOTE | 2022-12-04 10:15 | CT Scan Report ---
CT OF THE CERVICAL SPINE WITHOUT CONTRAST CLINICAL HISTORY: fall COMPARISON STUDY: Cervical spine CT October 26, 2022. TECHNIQUE: Helical axial images of the cervical spine were obtained without IV contrast. Sagittal a nd coronal reconstructions were viewed. Automated exposure control was utilized for the study. A do se lowering technique was utilized adhering to the principles of ALARA. FINDINGS: Reversal of the cervical lordosis with anterolisthesis of C4 on C5 is again noted. There is severe multilevel facet arthrosis and moderate to severe degenerative disc disease within the cervic al spine. Extensive degenerative changes at the C1-C2 articulation are again noted. No acute cervical spine fracture is identified. There is no prevertebral edema. IMPRESSION: 1. No acute cervical spine fracture or subluxation. 2. Severe multilevel degenerative changes within the cervical spine. ACT 112: Negative or not required by law. Electronically signed by: Juan Canseco M.D. 12/04/2022 10:13 AM
[2022-12-04 10:20] LABS: INR 0.9 (0.9-1.1); Prothrombin Time 10.3 Seconds (9.0-12.0)
[2022-12-04] MEDS ORDERED: MoRPHine SULFATE 2 MG/ML CARP IV STA ×2 (10:24→11:03)
--- NOTE | 2022-12-04 11:02 | XRay Report ---
XR hip RT 2V w pelvis HISTORY: 67 years-old Female fall, hip pain acute right hip pain status post fall COMPARISON: 10/26/2022 TECHNIQUE: AP view the pelvis with 2 views of the right hip FINDINGS: Left hip arthroplasty. Spinal fusion hardware. Unremarkable appearance of the left hip arthroplasty. Demineralized appearance of the bones. There is an acute transcervical fracture of the right femur wh ich demonstrates impaction with superolateral displacement of approximately 2.5 cm. No dislocation. M ild to moderate osteoarthritis of right hip. Lateral ankle soft tissue swelling. No additional acute fracture or dislocation. IMPRESSION: Acute impacted and displaced transcervical right femoral fracture. ACT 112: Negative or not required by law. The above report was generated using voice recognition software. It may contain grammatical, syntax o r spelling errors. Electronically signed by: Carlitos Joy M.D. 12/04/2022 11:00 AM
[2022-12-04] MEDS ORDERED: ACETAMINOPHEN 1,000 MG/100 ML VIAL IV STA (11:03)
--- NOTE | 2022-12-04 11:07 | XRay Report ---
SUPINE PORTABLE CHEST RADIOGRAPH CLINICAL HISTORY: fall COMPARISON STUDY: Chest radiograph October 26, 2022. FINDINGS: No pneumothorax is identified on supine exam. There are no airspace opacities. Pulmonary va scularity is normal. Postoperative findings within the thoracolumbar spine are partially imaged. IMPRESSION: No acute cardiopulmonary findings. ACT 112: Negative or not required by law. Electronically signed by: Juan Canseco M.D. 12/04/2022 11:05 AM
--- NOTE | 2022-12-04 11:28 | History & Physical Report ---
Date of Service December 04, 2022 Assessment & Plan (1) Closed fracture of right hip: (2) Fall: (3) Hypertension: (4) CKD (chronic kidney disease), stage III: (5) Hypothyroidism: (6) History of suicide attempt: Plan 67 y/o female presents s/p mechanical fall early this morning at [facility]. Imaging revealed closed fracture of right femoral head. Additional PMH includes: HTN, fibromyalgia, depression and anxiety. Creatinine and hemoglobin stable; no history of anesthesia challenges in the past. Patient appears to have adequate risk for surgical repair. Pain control and NPO. Closed fracture of right hip: S/P fall: hip/pelvis x-ray: acute transcervical fracture of the right femur which demonstrates impaction with superolateral displacement of approximately 2.5 cm. No dislocation. Mild to moderate osteoarthritis of right hip. Orthopedics consulted (Dr. Gonzales) per pt request d/t previous Left hip replacement. Pain control with Tylenol and Morphine PRN Pre-op Hgb 11.9; trend in AM NPO with anticipation of surgery. HTN: Takes Losartan; continue CXR without acute cardiopulmonary findings EKG without ectopy CKD stage III: Creatinine 0.80 Has bilateral LE edema; patient states is new Will get a BNP Hypothyroidism: Takes Synthroid;continue Fibromyalgia: Follows with Dr. Gonzales for ortho injections in right knee and right shoulder Uses Lidocaine patch, Gabapentin, and Metaxalone; continue Takes Oxycodone; will keep on Tylenol and PRN Morphine for now; unreliable with frequency of opioid use History of Suicide Attempt: Depression and anxiety: Takes Duloxetine; continue GERD: Takes Protonix;continue Disposition: PCP: Dr. Osman Code: DNR/DNI VTE Prophylaxis: Teds and SCDs for now I spent a total of 88 minutes coordinating, documenting, and providing care for this patient excluding time spent in the performance of separately billed services. All of the aforementioned completed while collaborating with the assigned attending physician for a full treatment plan. Please see their addendum for further details. History of Present Illness Chief Complaint: Right femur fracture Primary Care Provider: Arpit Osman MD Ms. Odom is a 67-year-old female that presented to the ED from [facility] after she experienced a slip and mechanical fall on her right hip. SHe woke in the middle of the night (time unknown) and she lost control of her bladder, and slipped on urine and fell. She trie dto stop her fall and she hit her head above her right eye. Patient does not take any known anticoagulation medications. She saw Dr. Gonzales for steroid injections in her right knee and left shoulder. At baseline, she has been using a cane and walker interchangeable for assistive device due to arthritic pain but was not using any of them last night. She has recently noted to have increased bilateral leg swelling but denies any SOB. Hip and pelvic x-ray indicated an acute transcervical fracture of the right femur which demonstrates impaction with superolateral displacement of approximately 2.5 cm. No dislocation. Mild to moderate osteoarthritis of right hip. Lateral ankle soft tissue swelling. Patient recently had left hip replacement performed by Dr. Gonzales more than a few years ago. 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 This is reportedly new from last CT 10/26/22. Has started using alcohol as masking pain. She reports drinking beer and liquor, vodka, when it flares. She feels it helps her pain. She says it depends on the weather and pain. Her last drink was more than a few days ago. Additional past medical history includes bipolar disorder, history of suicide attempt, anxiety, fibromyalgia, HTN, hypothyroidism, OA of both knees and CKD stage III. Additional imaging includes chest x-ray which was negative for acute pulmonary disease. Cervical spine CT negative outside of degenerative changes. Patient denies KELLY, double or blurry vision, dizziness, chest pain, SOB, abdominal changes, appetite changes, N/V/D, recent illness. She has stated that her appetite is more stimulated; likely related to steroids. She usually eats one meal per day at baseline. Pt lying in flat in her hospital bed. Initially, she was no in distress, but throughout our conversation she became more tearful with increased pain. Patient AAOx4 decreased motion in RLE; palpable pedal pulses. Patient reports having a decision maker that she is in the process of making her POA: "Brandon". No official paperwork completed as of yet. Patient will be admitted for further evaluation and management. Please see A/P for further details. Allergies Allergy/AdvReac Type Severity Reaction Status Date / Time cyclobenzaprine Allergy Intermediate ITCHY Verified 10/27/22 12:43 RASH, WT GAIN, DEPRESSION fentanyl Allergy Intermediate MAJOR FEET Verified 10/27/22 12:43 SWELLING ketorolac Allergy Unknown PER [facility] Verified 10/27/22 12:43 oxcarbazepine Allergy Unknown UNKNOWN - Verified 10/27/22 12:43 PT DOESN'T REMEMBER clonazepam AdvReac Intermediate NAUSEA/VOMI Verified 10/27/22 12:43 TING hydrocodone AdvReac Intermediate PT DOESN'T Verified 10/27/22 12:43 LIKE WITHDRAWAL SYMPTOMS oxycodone AdvReac Intermediate PT DOESN'T Verified 10/27/22 12:43 LIKE WITHDRAWAL SYMPTOMS risperidone AdvReac Intermediate exhaustion Verified 10/27/22 12:43 Home Medications Medication Instructions Recorded Confirmed Type prednisone 5 mg tablet 5 mg PO QAM 08/18/18 12/04/22 History ferrous sulfate 325 mg (65 mg 325 mg PO BIDM #1 tab 12/23/19 12/04/22 Rx iron) tablet,delayed release levothyroxine 50 mcg tablet 50 mcg PO DAILYBB #1 tab 12/23/19 12/04/22 Rx (Synthroid) acetaminophen 500 mg tablet 1,000 mg PO Q6H PRN Pain 03/20/20 12/04/22 History (Tylenol Extra Strength) metaxalone 800 mg tablet 800 mg PO QID 03/20/20 12/04/22 History omeprazole 20 mg capsule,delayed 20 mg PO BID 03/20/20 12/04/22 History release ondansetron 8 mg disintegrating 8 mg translingual Q8H PRN Nausea 03/20/20 12/04/22 History tablet duloxetine 60 mg capsule,delayed 120 mg PO QAM #60 caps 06/20/20 12/04/22 Rx release gabapentin 300 mg capsule 300 mg PO QID 30 days #120 caps 06/20/20 12/04/22 Rx lamotrigine 150 mg tablet 150 mg PO BID #60 tabs 06/20/20 12/04/22 Rx topiramate 100 mg tablet 150 mg PO HS #30 tabs 06/20/20 12/04/22 Rx losartan 50 mg tablet 50 mg PO QAM 06/26/20 12/04/22 History acyclovir 5 % topical ointment 1 applic topical 6XD PRN LIP SORES 10/27/22 12/04/22 History (Zovirax) SOON SYMPTOMS START. albuterol sulfate 90 mcg/actuation 2 puff inhalation QID PRN 10/27/22 12/04/22 History aerosol inhaler Shortness Of Breath Or Wheezing diclofenac sodium 1 % topical gel 2 g topical QID PRN Pain 10/27/22 12/04/22 History fluticasone propionate 50 2 spray intranasal DAILY PRN 10/27/22 12/04/22 History mcg/actuation nasal Congestion spray,suspension lidocaine 5 % topical patch 1 patch topical DAILY PRN Pain 10/27/22 12/04/22 History oxycodone 5 mg tablet 2.5 mg PO Q8H PRN pain 10/27/22 10/27/22 History oxycodone 5 mg tablet See Rx Instructions .Route 10/27/22 12/04/22 Rx .COMPLEX PRN pain #30 tabs polyethylene glycol 3350 17 17 g PO DAILY PRN Constipation 10/27/22 12/04/22 History gram/dose oral powder (Miralax) Past Med/Surg History Medical History Bipolar II disorder Psychiatry and Neurofeedback Borderline personality disorder C. difficile diarrhea Chronic pain CKD (chronic kidney disease), stage III Drug overdose Fibromyalgia Hip dislocation, left (~03/2020) History of suicide attempt Hypertension Hypokalemia Hyponatremia Hypothyroidism IBS (irritable bowel syndrome) Left rotator cuff tear Leg length discrepancy Polypharmacy Pressure injury of sacral region, stage 1 Recurrent Clostridioides difficile diarrhea Surgical History H/O carpal tunnel repair H/O inguinal hernia repair S/P cataract surgery Status post total hip replacement, left Family History Father Lung cancer associated cerebellar ataxia Macular degeneration Mother Pacemaker Other Cancer Heart disease Hypertension Lung disease Social History Smoking Status: Never smoker Tobacco Type: E-cigarettes / Vaping Second Hand Exposure: No; Hx Alcohol Use: No Hx Substance Use: Yes Last Used Substance: Days (ago) Last Used Substance Other:: Atleast 2 days ago for Kratom. Marijuana more then 24hrs. Substance Use Type Other:: kratom Preferred Language: Bahraini Communication Ability: Effective Communication Ability Comment: AMS Visual Impairment: No Limitations Hearing Ability: Normal Shoes Salesperson Required: No Beliefs That Will Affect Care: None marital status: / Current Living Situation: Alone Current Living Situation Comment: Lives alone in a multiple level house current occupational status: retired Feels Safe at Home: Yes Assistive Devices: Cane Review of Systems Review of Systems: Neuro: (+) Falls, (-)trauma, slurred speech HEENT: (-) KELLY, dizziness, dysphagia, visual or auditory changes CV: (-) CP, palpitations, swelling Resp: (-) SOB GI: (-) appetite changes, N/V/D, bowel changes : (-) urinary changes Skin: (-) rashes Psych: (+) anxiety, depression Physical Exam Physical Exam: Neuro: AAOx4, PERRLA, no aphagia, memory changes, CNII-XII grossly intact HEENT: head normocephalic, moist mucus membranes CV: S1/S2, (-) M/G/R, (-) edema, cap refill < 3 seconds. (+) pedal pulses. Bilateral LE edema Resp: Lungs CTA in all carney. On RA GI: Abdomen S/NT/ND, Ax4 bowel sounds, (-) CVA tenderness Musculoskeletal: 5/5 B/L UE strength, 5/5 B/L LE strength. Uses can at baseline Skin: (-) rashes , (-) erythema.(+) ecchymosis above right orbital region Psych: euthymic mood Results & Data Results & Data Vital Signs (Past 12 Hours) Vital Signs Temp Pulse Pulse Resp BP BP Pulse Ox 12/04/22 10:10 87 18 157/85 H 93 12/04/22 09:17 36.8 C 71 22 136/99 97 12/04/22 09:13 76 O2 Del Method 12/04/22 10:10 Room Air 12/04/22 09:17 Room Air 12/04/22 09:13 Laboratory Results Short CBC 12/04/22 Range/Units 09:20 WBC 12.25 H (4.8-10.8) K/ul Hgb 11.9 L (12.0-16.0) g/dl Hct 36.0 L (37.0-47.0) % Plt Count 245 (130-400) K/uL BMP 12/04/22 09:20 Sodium 136 Potassium 3.9 Chloride 107 Carbon Dioxide 22 BUN 12 Creatinine 0.80 Glucose 86 Calcium 9.2 Cardiac Enzymes 12/04/22 Range/Units 09:20 Total Creatine Kinase 33 (26-192) U/L Liver Function 12/04/22 Range/Units 09:20 Total Bilirubin 0.4 (0.2-1.0) mg/dl AST 20 (13-39) U/L ALT 12 (7-52) U/L Alkaline Phosphatase 58 (34-104) U/L Albumin 3.9 (3.4-5.0) gm/dl Diagnostic Findings Cervical Spine CT 12/04/22 09:14 CT OF THE CERVICAL SPINE WITHOUT CONTRAST CLINICAL HISTORY: fall COMPARISON STUDY: Cervical spine CT October 26, 2022. TECHNIQUE: Helical axial images of the cervical spine were obtained without IV contrast. Sagittal and coronal reconstructions were viewed. Automated exposure control was utilized for the study. A dose lowering technique was utilized adhering to the principles of ALARA. FINDINGS: Reversal of the cervical lordosis with anterolisthesis of C4 on C5 is again noted. There is severe multilevel facet arthrosis and moderate to severe degenerative disc disease within the cervical spine. Extensive degenerative changes at the C1-C2 articulation are again noted. No acute cervical spine fracture is identified. There is no prevertebral edema. IMPRESSION: 1. No acute cervical spine fracture or subluxation. 2. Severe multilevel degenerative changes within the cervical spine. ACT 112: Negative or not required by law. Electronically signed by: Juan Canseco M.D. 12/04/2022 10:13 AM Chest X-Ray 12/04/22 09:14 SUPINE PORTABLE CHEST RADIOGRAPH CLINICAL HISTORY: fall COMPARISON STUDY: Chest radiograph October 26, 2022. FINDINGS: No pneumothorax is identified on supine exam. There are no airspace opacities. Pulmonary vascularity is normal. Postoperative findings within the thoracolumbar spine are partially imaged. IMPRESSION: No acute cardiopulmonary findings. ACT 112: Negative or not required by law. Electronically signed by: Juan Canseco M.D. 12/04/2022 11:[address] 12/04/22 09:14 CT OF THE HEAD WITHOUT CONTRAST CLINICAL HISTORY: fall, forehead contusion R COMPARISON STUDY: Head CT October 26, 2022. TECHNIQUE: Helical axial images of the head were obtained without IV contrast. Automated exposure control was utilized for the study. A dose lowering technique was utilized adhering to the principles of ALARA. FINDINGS: This exam is mildly compromised by motion artifact. No acute intracranial hemorrhage, midline shift or mass effect is present. Ventricular system is normal. Basal cisterns are patent. There are no extra-axial collections. White matter hypodensity suggests small vessel disease. No acute calvarial fracture is noted. There is dilatation of the bilateral superior ophthalmic veins, a new finding since CT of October 26, 2022. IMPRESSION: 1. No acute intracranial findings. Exam mildly compromised by motion artifact. 2. No calvarial fracture identified. 3. Interval development of abnormal dilatation of the bilateral superior ophthalmic veins since head CT of October 26, 2022. The etiology and clinical significance of this finding is uncertain and correlation with visual/eye symptoms is recommended. Findings discussed with Dr. Bills at time of dictation. ACT 112: Negative or not required by law. Electronically signed by: Juan Canseco M.D. 12/04/2022 10:07 AM Hip/Pelvis X-Ray 12/04/22 09:14 XR hip RT 2V w pelvis HISTORY: 67 years-old Female fall, hip pain acute right hip pain status post fall COMPARISON: 10/26/2022 TECHNIQUE: AP view the pelvis with 2 views of the right hip FINDINGS: Left hip arthroplasty. Spinal fusion hardware. Unremarkable appearance of the left hip arthroplasty. Demineralized appearance of the bones. There is an acute transcervical fracture of the right femur which demonstrates impaction with superolateral displacement of approximately 2.5 cm. No dislocation. Mild to moderate osteoarthritis of right hip. Lateral ankle soft tissue swelling. No additional acute fracture or dislocation. IMPRESSION: Acute impacted and displaced transcervical right femoral fracture. ACT 112: Negative or not required by law. The above report was generated using voice recognition software. It may contain grammatical, syntax or spelling errors. Electronically signed by: Carlitos Joy M.D. 12/04/2022 11:00 AM Code Status & VTE Plan Code Status full code in the event of cardiac or respiratory arrest VTE Prophylaxis Plan VTE Prophylaxis will be ordered: Yes Supervising Physician Co-Signing Physician Notes Patient seen and examined independently. Agree with above provider. 67-year-old female presents to the hospital with mechanical fall. Found to have closed fracture of right knee. Orthopedic on board; plan for surgery today. Pain control with Tylenol and morphine. PT OT after surgery. Continue other home meds. (1) Closed fracture of right hip Encounter type: initial encounter Qualified Code(s): S72.001A - Fracture of unspecified part of neck of right femur, initial encounter for closed fracture (2) Fall Encounter type: initial encounter Qualified Code(s): W19.XXXA - Unspecified fall, initial encounter
[2022-12-04] MEDS ORDERED: NALOXONE HCL 0.4 MG/1 ML VIAL/CARP IV PRN (12:16)
[2022-12-04] MEDS ORDERED: bisacodyL 10 MG SUPP PR PRN (12:16)
[2022-12-04] MEDS ORDERED: MAGNESIUM HYDROXIDE SUSP 30 ML UDC PO PRN (12:16)
[2022-12-04] MEDS ORDERED: MoRPHine SULFATE 2 MG/ML CARP IV PRN ×2 (12:23→14:59)
--- NOTE | 2022-12-04 12:36 | Orthopedic Consultation ---
Date of Consultation December 04, 2022 History of Present Illness History of Present Illness HISTORY OF PRESENT ILLNESS: Patient is a 67-year-old female history of hypertension, CKD, bipolar disorder, fibromyalgia, IBS, chronic pain presenting here from [place] today. Evidently states she was up to use the bathroom last night and had a urinary accident and slipped and fell to the floor landing on her right hip. Significant pain there. Try to get up and bumped her right forehead. No loss of conscious reported. Is unable to get up and walk and laid there until found this morning. Significant pain in the right hip with denies pain in the left leg. Prior left hip replacement. Denies new numbness or tingling in the extremities. Denies significant headache currently or any chest pain or shortness of breath. Denies abdominal pain. Received morphine prior to arrival in the ambulance but still in significant pain by her report. Denies use of blood thinners. X-rays in the ER revealed a displaced right femoral neck fracture. Orthopaedics consulted for evaluation and management. PAST MEDICAL HISTORY: As noted above MEDICATIONS: Reviewed home medications SOCIAL HISTORY: Resides at [facility] PHYSICAL EXAM: GENERAL: alert and oriented on the stretcher moaning and discomfort Head: Patient with an approximate 1-1/2 to 2 cm contusion above the right eyebrow. No significant lacerations or swelling appreciated. EXTREMITIES: RLE shortened and externally rotated. Fires EHL, FHL, tibant, GS. SILT dorsal and plantar aspect of the R foot. Palpable DP pulse. 1-2+ edema of the bilateral lower legs some chronic stasis changes. No significant tenderness of the right ankle leg or knee. Significant tenderness with touch or trying to move the right hip region. Skin intact over the right hip. Results reviewed:Displaced femoral neck frature, R hip. Presence of L total hip arthroplasty w/o complication. A: Displaced R femoral neck fracture in patient with fibromyalgia, chronic low back pain, CKD, and bipolar. P: Discussed diagnosis and treatment options with patient. She would like surgery, but would like Dr. Gonzales to be her treating surgeon. I spoke with Dr. Gonzales. He said he could potentially do her surgery this afternoon, after he finishes his current surgery. He will assume her care. Allergies Allergy/AdvReac Type Severity Reaction Status Date / Time cyclobenzaprine Allergy Intermediate ITCHY Verified 10/27/22 12:43 RASH, WT GAIN, DEPRESSION fentanyl Allergy Intermediate MAJOR FEET Verified 10/27/22 12:43 SWELLING ketorolac Allergy Unknown PER GMG Verified 10/27/22 12:43 oxcarbazepine Allergy Unknown UNKNOWN - Verified 10/27/22 12:43 PT DOESN'T REMEMBER clonazepam AdvReac Intermediate NAUSEA/VOMI Verified 10/27/22 12:43 TING hydrocodone AdvReac Intermediate PT DOESN'T Verified 10/27/22 12:43 LIKE WITHDRAWAL SYMPTOMS oxycodone AdvReac Intermediate PT DOESN'T Verified 10/27/22 12:43 LIKE WITHDRAWAL SYMPTOMS risperidone AdvReac Intermediate exhaustion Verified 10/27/22 12:43 Home Medications Medication Instructions Recorded Confirmed Type prednisone 5 mg tablet 5 mg PO QAM 08/18/18 12/04/22 History ferrous sulfate 325 mg (65 mg 325 mg PO BIDM #1 tab 12/23/19 12/04/22 Rx iron) tablet,delayed release levothyroxine 50 mcg tablet 50 mcg PO DAILYBB #1 tab 12/23/19 12/04/22 Rx (Synthroid) acetaminophen 500 mg tablet 1,000 mg PO Q6H PRN Pain 03/20/20 12/04/22 History (Tylenol Extra Strength) metaxalone 800 mg tablet 800 mg PO QID 03/20/20 12/04/22 History omeprazole 20 mg capsule,delayed 20 mg PO BID 03/20/20 12/04/22 History release ondansetron 8 mg disintegrating 8 mg translingual Q8H PRN Nausea 03/20/20 12/04/22 History tablet duloxetine 60 mg capsule,delayed 120 mg PO QAM #60 caps 06/20/20 12/04/22 Rx release gabapentin 300 mg capsule 300 mg PO QID 30 days #120 caps 06/20/20 12/04/22 Rx lamotrigine 150 mg tablet 150 mg PO BID #60 tabs 06/20/20 12/04/22 Rx topiramate 100 mg tablet 150 mg PO HS #30 tabs 06/20/20 12/04/22 Rx losartan 50 mg tablet 50 mg PO QAM 06/26/20 12/04/22 History acyclovir 5 % topical ointment 1 applic topical 6XD PRN LIP SORES 10/27/22 12/04/22 History (Zovirax) SOON SYMPTOMS START. albuterol sulfate 90 mcg/actuation 2 puff inhalation QID PRN 10/27/22 12/04/22 History aerosol inhaler Shortness Of Breath Or Wheezing diclofenac sodium 1 % topical gel 2 g topical QID PRN Pain 10/27/22 12/04/22 History fluticasone propionate 50 2 spray intranasal DAILY PRN 10/27/22 12/04/22 History mcg/actuation nasal Congestion spray,suspension lidocaine 5 % topical patch 1 patch topical DAILY PRN Pain 10/27/22 12/04/22 History oxycodone 5 mg tablet 2.5 mg PO Q8H PRN pain 10/27/22 10/27/22 History oxycodone 5 mg tablet See Rx Instructions .Route 10/27/22 12/04/22 Rx .COMPLEX PRN pain #30 tabs polyethylene glycol 3350 17 17 g PO DAILY PRN Constipation 10/27/22 12/04/22 History gram/dose oral powder (Miralax) Patient History Medical History Bipolar II disorder Psychiatry and Neurofeedback Borderline personality disorder C. difficile diarrhea Chronic pain CKD (chronic kidney disease), stage III Drug overdose Fibromyalgia Hip dislocation, left (~03/2020) History of suicide attempt Hypertension Hypokalemia Hyponatremia Hypothyroidism IBS (irritable bowel syndrome) Left rotator cuff tear Leg length discrepancy Polypharmacy Pressure injury of sacral region, stage 1 Recurrent Clostridioides difficile diarrhea Surgical History H/O carpal tunnel repair H/O inguinal hernia repair S/P cataract surgery Status post total hip replacement, left Family History Father Lung cancer associated cerebellar ataxia Macular degeneration Mother Pacemaker Other Cancer Heart disease Hypertension Lung disease Social History Smoking Status: Never smoker Tobacco Type: E-cigarettes / Vaping Second Hand Exposure: No; Hx Alcohol Use: No Hx Substance Use: Yes Last Used Substance: Days (ago) Last Used Substance Other:: Atleast 2 days ago for Kratom. Marijuana more then 24hrs. Substance Use Type Other:: roberto carlos Preferred Language: Ukrainian Communication Ability: Effective Communication Ability Comment: AMS Visual Impairment: No Limitations Hearing Ability: Normal Building Illuminating Engineer Required: No Beliefs That Will Affect Care: None marital status: / Current Living Situation: Alone Current Living Situation Comment: Lives alone in a multiple level house current occupational status: retired Feels Safe at Home: Yes Assistive Devices: Cane Results & Data Vital Signs (Past 12 Hours) Vital Signs Temp Pulse Pulse Resp BP BP Pulse Ox 12/04/22 10:10 87 18 157/85 H 93 12/04/22 09:17 36.8 C 71 22 136/99 97 12/04/22 09:13 76 O2 Del Method 12/04/22 10:10 Room Air 12/04/22 09:17 Room Air 12/04/22 09:13
--- NOTE | 2022-12-04 13:16 | Anesthesiology Consultation ---
Date of Service December 04, 2022 Assessment & Plan (1) Encounter for pre-operative examination: Chart Review Chart Review: Acceptable Risk for Surgery and Patient NOT seen in Pre Admission Testing Consults Requested none History Surgery Operation Date: 12/04/22 14:05 Proposed Procedures p Right Bipolar Hip Cemented - Giovanni Gonzales MD Height/Weight Height: 5 ft 8 in Weight: 78.3 kg Allergies Allergy/AdvReac Type Severity Reaction Status Date / Time cyclobenzaprine Allergy Intermediate ITCHY Verified 10/27/22 12:43 RASH, WT GAIN, DEPRESSION fentanyl Allergy Intermediate MAJOR FEET Verified 10/27/22 12:43 SWELLING ketorolac Allergy Unknown PER GMG Verified 10/27/22 12:43 oxcarbazepine Allergy Unknown UNKNOWN - Verified 10/27/22 12:43 PT DOESN'T REMEMBER clonazepam AdvReac Intermediate NAUSEA/VOMI Verified 10/27/22 12:43 TING hydrocodone AdvReac Intermediate PT DOESN'T Verified 10/27/22 12:43 LIKE WITHDRAWAL SYMPTOMS oxycodone AdvReac Intermediate PT DOESN'T Verified 10/27/22 12:43 LIKE WITHDRAWAL SYMPTOMS risperidone AdvReac Intermediate exhaustion Verified 10/27/22 12:43 Medications Home Medications Medication Instructions Recorded Confirmed Last Taken prednisone 5 mg tablet 5 mg PO QAM 08/18/18 12/04/22 10/27/22 ferrous sulfate 325 mg (65 mg 325 mg PO BIDM #1 tab 12/23/19 12/04/22 10/27/22 08:00 iron) tablet,delayed release levothyroxine 50 mcg tablet 50 mcg PO DAILYBB #1 tab 12/23/19 12/04/22 10/27/22 (Synthroid) acetaminophen 500 mg tablet 1,000 mg PO Q6H PRN Pain 03/20/20 12/04/22 01/03/22 (Tylenol Extra Strength) metaxalone 800 mg tablet 800 mg PO QID 03/20/20 12/04/22 10/27/22 08:00 omeprazole 20 mg capsule,delayed 20 mg PO BID 03/20/20 12/04/22 10/27/22 08:00 release ondansetron 8 mg disintegrating 8 mg translingual Q8H PRN Nausea 03/20/20 12/04/22 01/04/22 tablet duloxetine 60 mg capsule,delayed 120 mg PO QAM #60 caps 12/03/20 05/19/23 04/11/23 release gabapentin 300 mg capsule 300 mg PO QID 30 days #120 caps 06/20/20 12/04/22 10/27/22 08:00 lamotrigine 150 mg tablet 150 mg PO BID #60 tabs 06/20/20 12/04/22 10/27/22 08:00 topiramate 100 mg tablet 150 mg PO HS #30 tabs 06/20/20 12/04/22 10/26/22 losartan 50 mg tablet 50 mg PO QAM 06/26/20 12/04/22 10/27/22 acyclovir 5 % topical ointment 1 applic topical 6XD PRN LIP SORES 10/27/22 12/04/22 Unknown (Zovirax) SOON SYMPTOMS START. albuterol sulfate 90 mcg/actuation 2 puff inhalation QID PRN 10/27/22 12/04/22 Unknown aerosol inhaler Shortness Of Breath Or Wheezing diclofenac sodium 1 % topical gel 2 g topical QID PRN Pain 10/27/22 12/04/22 Unknown fluticasone propionate 50 2 spray intranasal DAILY PRN 10/27/22 12/04/22 Unknown mcg/actuation nasal Congestion spray,suspension lidocaine 5 % topical patch 1 patch topical DAILY PRN Pain 10/27/22 12/04/22 Unknown oxycodone 5 mg tablet 2.5 mg PO Q8H PRN pain 10/27/22 10/27/22 Unknown oxycodone 5 mg tablet See Rx Instructions .Route 10/27/22 12/04/22 Unknown .COMPLEX PRN pain #30 tabs polyethylene glycol 3350 17 17 g PO DAILY PRN Constipation 10/27/22 12/04/22 Unknown gram/dose oral powder (Miralax) Past Medical History Medical History Bipolar II disorder Psychiatry and Neurofeedback Borderline personality disorder C. difficile diarrhea Chronic pain CKD (chronic kidney disease), stage III Drug overdose Fibromyalgia Hip dislocation, left (~03/2020) History of suicide attempt Hypertension Hypokalemia Hyponatremia Hypothyroidism IBS (irritable bowel syndrome) Left rotator cuff tear Leg length discrepancy Polypharmacy Pressure injury of sacral region, stage 1 Recurrent Clostridioides difficile diarrhea Past Family History Family History Father Lung cancer associated cerebellar ataxia Macular degeneration Mother Pacemaker Other Cancer Heart disease Hypertension Lung disease Past Surgical History Surgical History H/O carpal tunnel repair H/O inguinal hernia repair S/P cataract surgery Status post total hip replacement, left Social History Smoking Status: Never smoker Hx Alcohol Use: No Hx Substance Use: Yes substance use type: other Substance Use Type Other:: kratom Last Used Substance: Days (ago) Last Used Substance Other:: Atleast 2 days ago for Kratom. Marijuana more then 24hrs. Physical Exam Vital Signs Last Vital Signs Temp 98.2 F 12/04/22 09:17 Pulse 87 12/04/22 10:10 Resp 18 12/04/22 10:10 BP 157/85 H 12/04/22 10:10 Pulse Ox 93 12/04/22 10:10 O2 Del Method Room Air 12/04/22 10:10 Testing Laboratory Results 12/04/22 09:20 12/04/22 09:20 PT 10.3 Seconds (9.0-12.0) 12/04/22 09:20 INR 0.9 (0.9-1.1) 12/04/22 09:20 Electrocardiogram Date: 12/04/22 Findings: + NSR @
[2022-12-04] MEDS ORDERED: ONDANSETRON INJ 2 MG/ML 2 ML VIAL IV PRN (13:39)
[2022-12-04] MEDS ORDERED: ePHEDrine sulfate 50 MG/ML AMP IV PRN (13:39)
[2022-12-04] MEDS ORDERED: HYDROmorphone INJ 2 MG/ML SYR/VIAL IV PRN (13:39)
[2022-12-04] MEDS ORDERED: ATROPINE SULFATE 0.1 MG/ML 10ML SYR IV PRN (13:39)
[2022-12-04] MEDS ORDERED: BUPIVACAINE/EPINEPHRINE 0.25% 1:200,000 30 ML VIAL ONE (13:48)
[2022-12-04] MEDS ORDERED: DEXAMETHASONE SOD INJ 4 MG/ML VIAL ONE (13:53)
[2022-12-04] MEDS ORDERED: LIDOCAINE 2% 2 ML VIAL/AMP(20MG/ML) INFIL ONE (13:53)
[2022-12-04] MEDS ORDERED: GLYCOPYRROLATE 0.2 MG/ML VIAL ONE (13:53)
[2022-12-04] MEDS ORDERED: PROPOFOL IV EMULSION 10 MG/ML 20 ML VIAL IV ONE ×2 (13:53→15:07)
[2022-12-04] MEDS ORDERED: ONDANSETRON INJ 2 MG/ML 2 ML VIAL ONE (13:53)
[2022-12-04] MEDS ORDERED: HYDROmorphone INJ 2 MG/ML SYR/VIAL ONE ×2 (13:53→15:22)
[2022-12-04] MEDS ORDERED: SODIUM CHLORIDE 0.9% PF INJ 10 ML VIAL ONE (13:54)
--- NOTE | 2022-12-04 14:18 | Orthopedic Progress Note ---
Date of Service December 04, 2022 Assessment & Plan (1) Closed fracture of right hip: She was seen and examined by Dr. Gonzales. She was educated on this fracture and treatment. We recommend a cemented bipolar hemiarthroplasty. Procedure explained and consent obtained. She is npo. Subjective . Kerline is a 67 year old patient admitted with a displaced right femoral neck fracture. She was going to bathroom overnight, slipped on some urine, and fell. She was brought to [facility], xrays obtained show a displaced right femoral neck fracture. She denies any pain in the right hip prior to the fall. Has a h/o left nereyda. Review of Systems All systems reviewed & are unremarkable except as noted in HPI & below. Physical Exam .alert and oriented. Right leg: No range of motion at this time. Patient in significant pain. Able to dorsiflex and plantarflex. NVI. She does have edema of bilateral legs. Results & Data Results & Data Laboratory Results . Diagnostic Findings . xrays show a displaced right femoral neck fracture PG Care Time/CCT Total # of Minutes Spent Total Time Spent with Patient: Total time spent is greater than 50% in coordination of care (as documented) at patient's floor/unit and/or counseling patient: Coding Level of Care Code 08298 SUB INP/OBS CARE 3/50MIN Diagnoses Closed fracture of right hip S72.001A Encounter type: initial encounter (1) Closed fracture of right hip Encounter type: initial encounter Qualified Code(s): S72.001A - Fracture of unspecified part of neck of right femur, initial encounter for closed fracture
[2022-12-04] MEDS ORDERED: KETAMINE 50 MG/5 ML SYRINGE ONE (14:47)
[2022-12-04] MEDS ORDERED: VANCOMYCIN HCL 1000MG/20ML VIAL ONE (15:05)
[2022-12-04] MEDS ORDERED: LIDOCAINE 5% 1 PATCH TD PRN (15:21)
[2022-12-04] MEDS ORDERED: LABETALOL HCL IV 5 MG/ML 20ML IV ONE (15:27)
--- NOTE | 2022-12-04 15:32 | Electrocardiogram Report ---
Test Reason : Blood Pressure : / mmHG Vent. Rate : 069 BPM Atrial Rate : 069 BPM P-R Int : 146 ms QRS Dur : 078 ms QT Int : 372 ms P-R-T Axes : 073 051 065 degrees QTc Int : 398 ms Normal sinus rhythm Low voltage QRS Borderline ECG When compared with ECG of 04-JAN-2022 15:51, No significant change was found Confirmed by Dereje Castano ([id number]) on 12/04/2022 3:31:59 PM Referred By: Confirmed By:Aristides Castano
--- NOTE | 2022-12-04 16:25 | Operative Report ---
PG Post Operative Report Pre & Post Diagnosis Operation Date: 12/04/22 14:05 Pre-Op Diagnosis: Closed fracture of right hip. Post-Op Diagnosis: Closed fracture of right hip. I identified the patient and participated in the time-out.: Yes Procedure Operation Date: 12/04/22 14:05 Actual Procedures p Right Bipolar Hip Cemented(Right) - Giovanni Gonzales MD Surgeon Giovanni Gonzales MD Blanking Machine Operator Riaz Kinsey PA-C Estimated Blood Loss 200 Findings Consistent with Post-Op Diagnosis Specimens Right femoral head sent for pathology Anesthesia Type General Disposition Accompanied Patient To Recovery: No Indications Patient is a 67-year-old female with multiple medical problems and chronic pain syndrome who sustained a fall last evening. She was getting to the bathroom at about 2 in the morning when she fell. She spent quite a bit of time on the floor then was taken to the emergency room by ambulance. She was found to have a displaced right femoral neck fracture. No pre-existing hip pain. She was admitted by the hospitalist service, medically optimized indicated for surgical intervention. Description of Procedure Operative implants consist of: 1 Pawel size 14 LD/fracture stem 2. 12 mm distal centralizer. 3. +3.5/28 mm metal articular ball 4. 47 mm bipolar shell and liner. 5. Large cement restrictor. The patient was taken to the operating, identified, placed on the operating table supine position protectors were properly padded. IV antibiotics tried by anesthesia team. A general anesthetic was implemented. The patient was then placed in the left lateral cubitus position. An axillary roll was placed. Stulberg hip positioner was used for positioning. The right hip and leg were then scrubbed with Hibiclens, prepped with ChloraPrep and draped in usual sterile fashion. A posterolateral approach to the right hip was then performed through a curvilinear incision centered over the greater trochanter. Sharp dissection Through subcutaneous tissue down below the IT band gluteal fascia the IT band gluteal fascia incised longitudinally in line with skin incision. The underlying greater bursa was excised. The piriformis and external rotators were taken off the posterior aspect the hip joint capsule. Great care was taken throughout the procedure protect the sciatic nerve at all times. The posterior capsule was then teed to allow for later repair. Hip was internally rotated. The femoral neck osteotomy cut was made below the base of the fracture by a centimeter above the lesser trochanter. Femoral neck and femoral head were removed and sent for pathology. The acetabular was sized to a size 47. Attention drawn the femur. The proximal femur was entered with a Cook cutter followed by canal finder and lateralizing reamer. I then broached beginning with size 10 and progressing up to 14. We trialed the 14 and it fit well. It was fully stable. We elected to use a +3.5 neck to optimize stability and leg lengths equal We elect to place these implants. Nupathe all trial implants were removed. A large cement restrictor was placed. Canal was irrigated and cleaned. A double batch Palacos G cement was mixed with an additional gram of vancomycin. This is injected in the IM canal. A size 14 fracture stem was then placed. Once the cement hardened a +3.5/20 mm articular ball with a 47 bipolar shell and liner were placed. Hip was located once again found to be stable. Attention drawn toward closing. The wounds irrigated el out some pulsatile lavage solution. I did inject locally with 60 cc of half percent Marcaine with epinephrine. Meticulous repair of the posterior capsule was then performed with #2 Tycron suture in order to maximize her stability. The IT band gluteal fascia then closed with #1 PDS suture in a running fashion for subcutaneous tissues then closed in 2 layers with deep layer #2 Vicryl sutures in the subcutaneous tissues with 2 Dexon suture in a buried interrupted fashion. The skin was then closed with skin rogers. A Prevena VAC dressing was then applied. The patient was then brought out of general esthesia and transferred to the recovery room in stable condition. Patient tolerated procedure well and there were no complications. Riaz Kinsey, my physician psych assistant, was present for the entire procedure. His assistance was essential and required for appropriate patient positioning, prepping and draping, surgical exposure, performing the technical details of the operation, placement the implants, closure of the wound, and placement of the sterile bandage. I attest to the content of the Intraoperative Record and any orders documented therein. Any exceptions are noted below.
--- NOTE | 2022-12-04 17:20 | Anesthesiology Progress Note ---
Date of Service December 04, 2022 Anesthesia Post Procedure Vital Signs Vital Signs: Temp Pulse Pulse Resp BP BP BP 12/04/22 17:05 71 14 140/83 12/04/22 16:55 69 13 160/94 H 12/04/22 16:45 72 18 157/101 H 12/04/22 16:36 36.1 C L 69 18 167/106 H 12/04/22 13:36 37.1 C 94 H 20 159/90 H 12/04/22 13:28 12/04/22 13:00 95 H 15 12/04/22 13:00 151/93 H 12/04/22 12:31 97 H 16 12/04/22 12:31 173/104 H 12/04/22 12:30 96 H 20 12/04/22 12:00 94 H 21 12/04/22 12:00 154/92 H 12/04/22 11:30 91 H 21 12/04/22 11:30 193/129 H 12/04/22 11:11 88 15 12/04/22 11:11 165/100 H 12/04/22 11:00 90 19 12/04/22 10:44 12/04/22 10:10 89 21 12/04/22 10:10 157/85 H 12/04/22 10:01 83 21 12/04/22 10:01 172/111 H 12/04/22 10:00 79 21 12/04/22 09:31 167/109 H 12/04/22 09:31 72 24 12/04/22 09:30 14 12/04/22 09:12 74 24 12/04/22 10:10 87 18 157/85 H 12/04/22 09:17 36.8 C 71 22 136/99 12/04/22 09:13 76 Pulse Ox O2 Del Method O2 Flow Rate 12/04/22 17:05 98 Oxymask 5 12/04/22 16:55 97 Oxymask 7 12/04/22 16:45 91 Oxymask 7 12/04/22 16:36 94 Oxymask 7 12/04/22 13:36 96 Room Air 12/04/22 13:28 Room Air 12/04/22 13:00 92 12/04/22 13:00 12/04/22 12:31 98 12/04/22 12:31 12/04/22 12:30 95 12/04/22 12:00 12/04/22 12:00 96 12/04/22 11:30 12/04/22 11:30 94 12/04/22 11:11 92 12/04/22 11:11 12/04/22 11:00 96 12/04/22 10:44 94 12/04/22 10:10 92 12/04/22 10:10 12/04/22 10:01 93 12/04/22 10:01 12/04/22 10:00 92 12/04/22 09:31 12/04/22 09:31 96 12/04/22 09:30 95 12/04/22 09:12 90 12/04/22 10:10 93 Room Air 12/04/22 09:17 97 Room Air 12/04/22 09:13 Pain Intensity Hip: Pain Intensity: 10 Right Hip: Pain Intensity: 10 Transfer of Care Handoff Completed per policy Notes Mental Status: alert / awake / arousable and participated in evaluation Patient Amnestic to Procedure: Yes Nausea / Vomiting: adequately controlled Pain: improving with treatment Airway Patency, RR, SpO2: stable & adequate BP & HR: stable & adequate Hydration State: stable & adequate Anesthetic Complications: no major complications apparent and Pt Satisfied with anesthetic care
--- NOTE | 2022-12-04 17:31 | XRay Report ---
XR hip RT min 2V CLINICAL HISTORY: Post-Operative implant position COMPARISON: Pelvis and right hip radiographs performed earlier today. FINDINGS: Alignment of the right hip arthroplasty is anatomic. There is no periprosthetic fracture o r unexpected radiopaque foreign body. There are skin rogers. Postoperative findings within the spine are incidentally noted. IMPRESSION: Expected findings following right hip arthroplasty. ACT 112: Negative or not required by law. Electronically signed by: Juan Canseco M.D. 12/04/2022 5:30 PM
[2022-12-04] MEDS: SODIUM CHLORIDE 0.9% 1000ML 1,000 ML IV SCH (18:31)
[2022-12-04] MEDS: TOPIRAMATE 50 MG TAB PO SCH (22:00)
[2022-12-04] MEDS: PANTOprazole 40 MG TAB PO SCH (22:01)
[2022-12-04] MEDS: lamoTRIgine 100 MG TAB PO SCH (22:01)
[2022-12-04] MEDS: ASPIRIN 81 MG ECTAB PO SCH (22:02)
[2022-12-04] MEDS: METAXALONE 800 MG TABLET PO SCH ×2 (22:03→22:15)
[2022-12-04] MEDS: GABAPENTIN 300 MG CAP PO SCH ×2 (22:03→22:15)
[2022-12-04] MEDS: ACETAMINOPHEN 325 MG TAB PO SCH (22:04)
[2022-12-04] MEDS: FERROUS SULFATE 325 MG TAB PO SCH (22:04)
[2022-12-04] MEDS: HYDROmorphone INJ 0.5 MG/0.5 ML SYR IV PRN (23:28)
[2022-12-05] MEDS: DOCUSATE SODIUM/SENNA 50/8.6MG TAB PO SCH ×2 (00:19→20:49)
[2022-12-05] MEDS: ceFAZolin 1000MG 1,000 MG/7.5 ML SYR IV SCH ×2 (00:24→06:18)
[2022-12-05] MEDS: oxyCODONE HCL IR 5 MG TAB (IMMEDIATE RELEASE) PO PRN ×5 (02:02→20:46)
[2022-12-05 02:44] LABS: Appearance Urine Turbid (Clear); Bacteria Urine Automated Negative (Negative); Bilirubin Urine Negative (Negative); Blood Urine 1+ (Negative); Color Urine Yellow; Epithelial Cell Urine Auto 20-30 /lpf (0-5); Glucose Urine UA Negative (Negative); Ketones Urine Negative (Negative); Leukocyte Esterase Urine 3+ (Negative); Nitrite Urine Negative (Negative); RBC Urine Automated 0-4 /hpf (0-4); Specific Gravity Urine 1.014 (1.000-1.030); Urobilinogen Urine Negative (Negative); WBC Urine Automated >30 /hpf (0-5)
[2022-12-05 03:00] LABS: Protein Urine Trace (Negative)
[2022-12-05] MEDS: ACETAMINOPHEN 325 MG TAB PO SCH ×3 (03:04→19:19)
[2022-12-05] MEDS: SODIUM CHLORIDE 0.9% 1000ML 1,000 ML IV SCH (06:16)
[2022-12-05] MEDS: LEVOTHYROXINE SODIUM 50 MCG TABLET PO SCH (06:24)
[2022-12-05] MEDS: HYDROmorphone INJ 0.5 MG/0.5 ML SYR IV PRN ×6 (06:30→23:54)
[2022-12-05 07:36] LABS: Basophils # (auto) 0.02 K/uL (0-0.2); Basophils % (auto) 0.2 %; Eosinophils # (auto) 0.01 K/uL (0-0.50); Eosinophils % (auto) 0.1 %; Hematocrit (blood only) 27.6 % (37.0-47.0); Hemoglobin 9.5 g/dl (12.0-16.0); Immature Granulocytes # (auto) 0.03 K/uL (0.01-0.20); Immature Granulocytes % (auto) 0.4 %; Lymphocytes # (auto) 0.75 K/uL (1.2-3.4); Lymphocytes % (auto) 8.8 %; Mean Corpuscular Hemoglobin 33.5 pg (25.0-34.0); Mean Corpuscular Hgb Conc 34.4 g/dL (32.0-36.0); Mean Corpuscular Volume 97.2 fL (80.0-100.0); Mean Platelet Volume 9.5 fL (9.4-12.4); Monocytes # (auto) 0.83 K/uL (0.11-0.59); Monocytes % (auto) 9.7 %; Neutrophils # (auto) 6.92 K/uL (1.40-6.50); Neutrophils % (auto) 80.8 %; Platelet Count 190 K/uL (130-400); RDW Coefficient of Variation 13.4 % (11.5-14.5); RDW Standard Deviation 48.1 fL (36.4-46.3); Red Blood Count 2.84 M/uL (4.20-5.40); White Blood Count 8.56 K/ul (4.8-10.8)
[2022-12-05] MEDS: ASPIRIN 81 MG ECTAB PO SCH ×2 (07:37→20:49)
[2022-12-05] MEDS: FERROUS SULFATE 325 MG TAB PO SCH ×2 (07:37→16:08)
[2022-12-05] MEDS: lamoTRIgine 100 MG TAB PO SCH ×2 (07:38→20:48)
[2022-12-05] MEDS: GABAPENTIN 300 MG CAP PO SCH ×4 (07:38→20:46)
[2022-12-05] MEDS: METAXALONE 800 MG TABLET PO SCH ×4 (07:38→20:46)
[2022-12-05] MEDS: PANTOprazole 40 MG TAB PO SCH ×2 (07:39→20:49)
[2022-12-05] MEDS: LOSARTAN POTASSIUM 50 MG TAB PO SCH (07:39)
[2022-12-05] MEDS: DULoxetine HCL 60 MG CAP PO SCH (07:40)
[2022-12-05 07:57] LABS: Albumin Globulin Ratio 1.5 (0.9-2); BUN Creatinine Ratio 18.6 (10-20); Bilirubin,Total 0.5 mg/dl (0.2-1.0); Calcium 8.2 mg/dl (8.6-10.3); Creatinine Clr Calc Pharmacy 84.9 ml/min; Est GFR (African American) 103.2 ml/min; Potassium 4.2 mmol/L (3.5-5.1)
[2022-12-05] MEDS ORDERED: oxyCODONE HCL IR 5 MG TAB (IMMEDIATE RELEASE) PO PRN (10:52)
--- NOTE | 2022-12-05 11:54 | Progress Notes ---
DATE OF SERVICE: 12/05/2022 SUBJECTIVE: A 67-year-old white female postop day 1 from a right cemented bipolar hip arthroplasty f or fracture. She seems to be doing okay. Complaining of a lot of pain, but this is fairly usual for her. Denies any chest pain or shortness of breath. No real new complaints. OBJECTIVE: VITAL SIGNS: Temperature 37.6. Vital signs are stable. PHYSICAL EXAMINATION: GENERAL: A middle-aged female. She is lying in bed, looks reasonably comfortable. EXTREMITIES: Examination of the right hip reveals that her Prevena VAC dressing to be in place. Her leg lengths are equal. Her thigh is soft and supple. She can dorsiflex and plantarflex her foot ap propriately. She has got marked pain even with palpation of her foot. NEUROLOGIC: She is neurologically intact. LABORATORY DATA: Hemoglobin 9.5, hematocrit 27.6. Electrolytes are stable. ASSESSMENT: A 67-year-old white female with multiple medical comorbidities with significant psychiatric issues wh o is right now postop day 1 from a right cemented bipolar hip arthroplasty for fracture. Orthopedica lly, she is doing fine. She has got a lot of other issues, which confound her living and recovery. PLAN: 1. DVT prophylaxis to include thigh-high TEDs, SCDs and would recommend baby aspirin twice a day for the next 6 weeks. 2. PT/OT. She can fully weightbear as tolerated. Does need to obey hip precautions. 3. Pain control. This may be difficult. We can consult pain service if needed. Otherwise, I would recommend she just take the oxycodone and Tylenol and see how things come along. 4. Medical management as per the medicine service. 5. Multiple other psychiatric issues. I would recommend a psych consult to help her deal with this pain. She has got a lot of other social issues as well. 6. Disposition: She is orthopedically okay for discharge any time medically stable. She just needs to leave this Prevena VAC dressing in place for 7 days. I need to see her back 2-3 weeks out from s urgery date. Any orthopedic questions can be directed to me at [phone]. I am going to be out o f town tomorrow but available by phone. If there are any orthopedic questions, she can feel free to contact me at the phone number [phone]. Otherwise, I will see her back on Wednesday. Job ID: [id number]
--- NOTE | 2022-12-05 15:24 | Hospitalist Progress Note ---
Date of Service December 05, 2022 Assessment & Plan (1) Closed fracture of right hip: (2) Fall: (3) Hypertension: (4) CKD (chronic kidney disease), stage III: (5) Hypothyroidism: (6) History of suicide attempt: Plan 67 y/o female presents s/p mechanical fall early this morning at [facility]. Imaging revealed closed fracture of right femoral head. Additional PMH includes: HTN, fibromyalgia, depression and anxiety. Creatinine and hemoglobin stable; no history of anesthesia challenges in the past. Patient appears to have adequate risk for surgical repair. Pain control and NPO. Closed fracture of right hip: S/P fall: --hip/pelvis x-ray: acute transcervical fracture of the right femur which demonstrates impaction with superolateral displacement of approximately 2.5 cm. No dislocation. Mild to moderate osteoarthritis of right hip. --S/P Right Bipolar Hip Cemented by on 12/04/22 Appreciate orthopedics input Weightbearing as tolerated Plan to continue aspirin twice a day for 6 weeks Pain control Appreciate orthopedics input PT OT Fall precautions Continue Prevena VAC dressing for 7 days Needs follow-up with orthopedic surgery in 2 to 3 weeks B/L superior ophthalmic vein dilatation Incidental finding on CT --CT head:No acute intracranial findings. Exam mildly compromised by motion artifact. No calvarial fracture identified. Interval development of abnormal dilatation of the bilateral superior ophthalmic veins since head CT of October 26, 2022. The etiology and clinical significance of this finding is uncertain and correlation with visual/eye symptoms is recommended -- Patient denies any blurry, double vision, ophthalmic pain Advised to follow-up with ophthalmology as outpatient HTN: Continue losartan Monitor CKD stage III: Cr at baseline Monitor renal function Hypothyroidism: Continue levothyroxine Fibromyalgia: Follows with Dr. Gonzales for ortho injections in right knee and right shoulder Uses Lidocaine patch, Gabapentin, and Metaxalone On chronic narcotics Pain management consulted H/O Suicide Attempt: Depression and anxiety: Bipolar Disorder Continue duloxetine, also on Lamictal Psychiatry consulted GERD: Continue Protonix Code Status: DNR/DNI Disposition: PT/OT prior to discharge Admission and Anticipated Discharge Date Admission Date: December 04, 2022 Subjective Patient is seen and examined at bedside Tearful and in distress secondary to right hip pain at surgical site Reports having fibromyalgia since many years Denies any chest pain, dyspnea, dizziness, nausea, abdominal pain Also denies any blurry vision, double vision No other complaints Review of Systems Review of Systems: All systems reviewed & are unremarkable except as noted in Subjective Physical Exam Physical Exam: Physical Exam: Vitals signs as noted above General Appearance:Moderately built and nourished, Chronic ill appearing, no apparent distress Head: normocephalic, Atraumatic Eyes: normal inspection, EOMI Neck: supple, Trachea midline Respiratory/Chest: Normal breath sounds, CTA, No accessory muscle use Cardiovascular: S1, S2, No murmur Abdomen/GI:Soft, Non tender, Bowel sounds present Extremities/Musculoskeletal:normal inspection, B/L LE edema, R hip surgical site in dressing Neurologic/Psych:AAOX3, grossly no focal neurological deficits Skin: normal color, warm Results & Data Results & Data Vital Signs (Past 12 Hours) Vital Signs Temp Pulse Resp BP Pulse Ox O2 Del Method O2 Flow Rate 12/05/22 11:16 37.6 C H 76 20 131/84 93 Room Air 12/05/22 07:32 37.0 C 73 20 129/75 93 Room Air 12/05/22 04:56 37.0 C 74 18 109/68 92 Nasal Cannula 3 Laboratory Results Short CBC 12/05/22 Range/Units 07:03 WBC 8.56 (4.8-10.8) K/ul Hgb 9.5 L (12.0-16.0) g/dl Hct 27.6 L (37.0-47.0) % Plt Count 190 (130-400) K/uL BMP 12/05/22 07:03 Sodium 136 Potassium 4.2 Chloride 109 H Carbon Dioxide 21 BUN 13 Creatinine 0.70 Glucose 119 H Calcium 8.2 L Liver Function 12/05/22 Range/Units 07:03 Total Bilirubin 0.5 (0.2-1.0) mg/dl AST 14 (13-39) U/L ALT 9 (7-52) U/L Alkaline Phosphatase 47 (34-104) U/L Albumin 3.0 L (3.4-5.0) gm/dl Urine 12/05/22 Range/Units 02:00 Urine Color Yellow Urine Appearance Turbid A (Clear) Urine pH 8.0 H (4.5-7.5) Ur Specific [place] 1.014 (1.000-1.030) Urine Protein Trace H (Negative) Urine Glucose (UA) Negative (Negative) (1) Closed fracture of right hip Encounter type: initial encounter Qualified Code(s): S72.001A - Fracture of unspecified part of neck of right femur, initial encounter for closed fracture (2) Fall Encounter type: initial encounter Qualified Code(s): W19.XXXA - Unspecified fall, initial encounter
[2022-12-05] MEDS: TOPIRAMATE 50 MG TAB PO SCH (20:47)
[2022-12-06] MEDS: ACETAMINOPHEN 325 MG TAB PO SCH ×4 (03:04→20:45)
[2022-12-06] MEDS: HYDROmorphone INJ 0.5 MG/0.5 ML SYR IV PRN ×8 (03:30→22:56)
[2022-12-06] MEDS: LEVOTHYROXINE SODIUM 50 MCG TABLET PO SCH (05:47)
[2022-12-06] MEDS: oxyCODONE HCL IR 5 MG TAB (IMMEDIATE RELEASE) PO PRN ×4 (07:45→20:44)
[2022-12-06] MEDS: ASPIRIN 81 MG ECTAB PO SCH ×2 (08:01→20:46)
[2022-12-06] MEDS: lamoTRIgine 100 MG TAB PO SCH ×2 (08:01→20:47)
[2022-12-06] MEDS: PANTOprazole 40 MG TAB PO SCH ×2 (08:01→20:48)
[2022-12-06] MEDS: FERROUS SULFATE 325 MG TAB PO SCH ×2 (08:01→16:44)
[2022-12-06] MEDS: DULoxetine HCL 60 MG CAP PO SCH (08:01)
[2022-12-06] MEDS: LOSARTAN POTASSIUM 50 MG TAB PO SCH (08:02)
[2022-12-06] MEDS: GABAPENTIN 300 MG CAP PO SCH ×4 (08:02→20:46)
[2022-12-06] MEDS: METAXALONE 800 MG TABLET PO SCH ×4 (08:02→20:48)
[2022-12-06 08:20] LABS: Hematocrit (blood only) 28.8 % (37.0-47.0); Hemoglobin 9.6 g/dl (12.0-16.0); Mean Corpuscular Hemoglobin 33.6 pg (25.0-34.0); Mean Corpuscular Hgb Conc 33.3 g/dL (32.0-36.0); Mean Corpuscular Volume 100.7 fL (80.0-100.0); Mean Platelet Volume 9.6 fL (9.4-12.4); Platelet Count 153 K/uL (130-400); RDW Coefficient of Variation 13.5 % (11.5-14.5); RDW Standard Deviation 50.4 fL (36.4-46.3); Red Blood Count 2.86 M/uL (4.20-5.40); White Blood Count 7.79 K/ul (4.8-10.8)
[2022-12-06 08:43] LABS: BUN Creatinine Ratio 11.8 (10-20); Creatinine Clr Calc Pharmacy 78.8 ml/min; Est GFR (African American) 93.4 ml/min; Est GFR (Non-African American) 80.6 ml/min; Magnesium 1.8 mg/dl (1.7-2.4); Potassium 4.1 mmol/L (3.5-5.1)
[2022-12-06] MEDS: ADVANCED PROBIOTIC 1250 MG CAPSULE PO SCH (10:14)
[2022-12-06] MEDS: cefTRIAXone SODIUM 2,000 MG in DEXTROSE 5% 50 ML IV SCH (10:14)
[2022-12-06] MEDS ORDERED: ALBUTEROL HFA 8 GM INHALER INH PRN (15:31)
[2022-12-06] MEDS ORDERED: FLUTICASONE PROPIONATE NA SPR 16 GM BTL PRN (15:31)
--- NOTE | 2022-12-06 15:55 | Hospitalist Progress Note ---
Date of Service December 06, 2022 Assessment & Plan (1) Closed fracture of right hip: (2) Fall: (3) Hypertension: (4) CKD (chronic kidney disease), stage III: (5) Hypothyroidism: (6) History of suicide attempt: Plan 67 y/o female presents s/p mechanical fall early this morning at [facility]. Imaging revealed closed fracture of right femoral head. Additional PMH includes: HTN, fibromyalgia, depression and anxiety. Creatinine and hemoglobin stable; no history of anesthesia challenges in the past. Patient appears to have adequate risk for surgical repair. Pain control and NPO. Closed fracture of right hip: S/P fall: Postoperative acute blood loss anemia --hip/pelvis x-ray: acute transcervical fracture of the right femur which demonstrates impaction with superolateral displacement of approximately 2.5 cm. No dislocation. Mild to moderate osteoarthritis of right hip. --S/P Right Bipolar Hip Cemented by on 12/04/22 Appreciate orthopedics input Weightbearing as tolerated Plan to continue aspirin twice a day for 6 weeks Pain control Appreciate orthopedics input PT OT--refused as per PT today Fall precautions Continue Prevena VAC dressing for 7 days Needs follow-up with orthopedic surgery in 2 to 3 weeks No indication for blood transfusion currently Pain management consult pending Continue current management B/L superior ophthalmic vein dilatation Incidental finding on CT --CT head:No acute intracranial findings. Exam mildly compromised by motion artifact. No calvarial fracture identified. Interval development of abnormal dilatation of the bilateral superior ophthalmic veins since head CT of October 26, 2022. The etiology and clinical significance of this finding is uncertain and correlation with visual/eye symptoms is recommended -- Patient denies any blurry, double vision, ophthalmic pain Advised to follow-up with ophthalmology as outpatient HTN: Continue losartan Monitor CKD stage III: Cr at baseline Monitor renal function Hypothyroidism: Continue levothyroxine Fibromyalgia: Follows with Dr. Gonzales for ortho injections in right knee and right shoulder Uses Lidocaine patch, Gabapentin, and Metaxalone On chronic narcotics Pain management consulted H/O Suicide Attempt: Depression and anxiety: Bipolar Disorder Continue duloxetine, also on Lamictal Psychiatry consulted GERD: Continue Protonix Code Status: DNR/DNI Disposition: PT/OT prior to discharge Admission and Anticipated Discharge Date Admission Date: December 04, 2022 Subjective Patient is seen and examined at bedside No significant change from yesterday Continues to complain of right hip pain at surgical site Seem to be comfortable during my encounter Denies any chest pain, dyspnea, dizziness, nausea, abdominal pain Review of Systems Review of Systems: All systems reviewed & are unremarkable except as noted in Subjective Physical Exam Physical Exam: Physical Exam: Vitals signs as noted above General Appearance:Moderately built and nourished, Chronic ill appearing, no apparent distress Head: normocephalic, Atraumatic Eyes: normal inspection, EOMI Neck: supple, Trachea midline Respiratory/Chest: Normal breath sounds, CTA, No accessory muscle use Cardiovascular: S1, S2, No murmur Abdomen/GI:Soft, Non tender, Bowel sounds present Extremities/Musculoskeletal:normal inspection, B/L LE edema, R hip surgical site in dressing Neurologic/Psych:AAOX3, grossly no focal neurological deficits Skin: normal color, warm Results & Data Results & Data Vital Signs (Past 12 Hours) Vital Signs Temp Pulse Pulse Resp BP Pulse Ox O2 Del Method 12/06/22 14:53 37.0 C 75 16 112/73 96 Room Air 12/06/22 07:34 37.6 C H 85 20 132/80 93 Room Air 12/06/22 07:24 84 Laboratory Results Short CBC 12/06/22 Range/Units 07:47 WBC 7.79 (4.8-10.8) K/ul Hgb 9.6 L (12.0-16.0) g/dl Hct 28.8 L (37.0-47.0) % Plt Count 153 (130-400) K/uL BMP 12/06/22 07:47 Sodium 138 Potassium 4.1 Chloride 109 H Carbon Dioxide 24 BUN 9 Creatinine 0.76 Glucose 117 H Calcium 9.0 (1) Closed fracture of right hip Encounter type: initial encounter Qualified Code(s): S72.001A - Fracture of unspecified part of neck of right femur, initial encounter for closed fracture (2) Fall Encounter type: initial encounter Qualified Code(s): W19.XXXA - Unspecified fall, initial encounter
[2022-12-06] MEDS: POLYETHYLENE (MIRALAX) 17 GM PACK PO SCH ×2 (19:41→23:53)
[2022-12-06] MEDS: DOCUSATE SODIUM/SENNA 50/8.6MG TAB PO SCH (20:46)
[2022-12-06] MEDS: TOPIRAMATE 50 MG TAB PO SCH (20:50)
[2022-12-07] MEDS: oxyCODONE HCL IR 5 MG TAB (IMMEDIATE RELEASE) PO PRN ×6 (01:06→21:34)
[2022-12-07] MEDS: ACETAMINOPHEN 325 MG TAB PO SCH ×3 (02:57→18:00)
[2022-12-07] MEDS: HYDROmorphone INJ 0.5 MG/0.5 ML SYR IV PRN ×7 (03:01→23:12)
[2022-12-07] MEDS: LEVOTHYROXINE SODIUM 50 MCG TABLET PO SCH (05:22)
[2022-12-07] MEDS: POLYETHYLENE (MIRALAX) 17 GM PACK PO SCH ×3 (05:23→17:00)
[2022-12-07] MEDS: LOSARTAN POTASSIUM 50 MG TAB PO SCH (07:28)
[2022-12-07] MEDS: GABAPENTIN 300 MG CAP PO SCH ×4 (07:29→20:09)
[2022-12-07] MEDS: DULoxetine HCL 60 MG CAP PO SCH (07:29)
[2022-12-07] MEDS: METAXALONE 800 MG TABLET PO SCH ×4 (07:29→20:10)
[2022-12-07] MEDS: PANTOprazole 40 MG TAB PO SCH ×2 (07:29→20:11)
[2022-12-07] MEDS: FERROUS SULFATE 325 MG TAB PO SCH ×2 (07:29→16:24)
[2022-12-07] MEDS: ADVANCED PROBIOTIC 1250 MG CAPSULE PO SCH (07:30)
[2022-12-07] MEDS: ASPIRIN 81 MG ECTAB PO SCH ×2 (07:30→20:08)
[2022-12-07] MEDS: lamoTRIgine 100 MG TAB PO SCH ×2 (07:30→20:09)
[2022-12-07] MEDS: cefTRIAXone SODIUM 2,000 MG in DEXTROSE 5% 50 ML IV SCH (09:18)
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
--- NOTE | 2022-12-07 11:17 | Progress Notes ---
SUBJECTIVE: A 67-year-old white female now postop day 3 from a right cemented bipolar hip arthroplas ty for fracture. She seems to be doing okay. She reports a lot of pain, but looks quite comfortable , lying in bed. She did do her physical therapy today. Denies any chest pain or shortness of breath . OBJECTIVE: VITAL SIGNS: Temperature 37.2. Vital signs are stable. GENERAL: Shows a pleasant middle-aged female. She is sitting up in bed and looks pretty comfortable , despite complaining of pain all over. EXTREMITIES: Examination of the right hip and leg reveals a Prevena VAC dressing to be in place. Le g lengths were equal. She can dorsiflex and plantarflex her foot appropriately. She is neurological ly intact. LABORATORY DATA: No new labs today. ASSESSMENT: A 67-year-old white female postoperative day #3 from right cemented bipolar hip arthroplasty for frac ture. She has got multiple medical comorbidities and dealing with a lot of chronic pain, posttraumat ic stress issues, etc. PLAN: 1. DVT prophylaxis includes thigh-high TEDs, SCDs and we would recommend a baby aspirin twice a day for 6 weeks. 2. PT/OT. She can fully weightbear as tolerated. Does need to obey hip precautions. 3. Pain control, doing okay with current pain management regimen. She reports a lot of pain, but cl inically looks comfortable and vital signs are stable. 4. Medical management per the medicine service. 5. Psychiatric management as per the psych service. 6. Disposition: She is orthopedically okay for discharge any time medically stable. I need to see her back two to three weeks out from surgery. Any orthopedic questions can be directed to me at . Job ID: [id number]
--- NOTE | 2022-12-07 15:45 | Hospitalist Progress Note ---
Date of Service December 07, 2022 Assessment & Plan (1) Closed fracture of right hip: (2) Fall: (3) Hypertension: (4) CKD (chronic kidney disease), stage III: (5) Hypothyroidism: (6) History of suicide attempt: Plan 67 y/o female presents s/p mechanical fall early this morning at [facility]. Imaging revealed closed fracture of right femoral head. Additional PMH includes: HTN, fibromyalgia, depression and anxiety. Creatinine and hemoglobin stable; no history of anesthesia challenges in the past. Patient appears to have adequate risk for surgical repair. Pain control and NPO. Closed fracture of right hip: S/P fall: Postoperative acute blood loss anemia --hip/pelvis x-ray: acute transcervical fracture of the right femur which demonstrates impaction with superolateral displacement of approximately 2.5 cm. No dislocation. Mild to moderate osteoarthritis of right hip. --S/P Right Bipolar Hip Cemented by on 12/04/22 Weightbearing as tolerated Plan to continue aspirin twice a day for 6 weeks Pain control Fall precautions Continue Prevena VAC dressing for 7 days Needs follow-up with orthopedic surgery in 2 to 3 weeks No indication for blood transfusion currently Pain management consult pending Continue current management B/L superior ophthalmic vein dilatation Incidental finding on CT --CT head:No acute intracranial findings. Exam mildly compromised by motion artifact. No calvarial fracture identified. Interval development of abnormal dilatation of the bilateral superior ophthalmic veins since head CT of October 26, 2022. The etiology and clinical significance of this finding is uncertain and correlation with visual/eye symptoms is recommended -- Patient denies any blurry, double vision, ophthalmic pain Advised to follow-up with ophthalmology as outpatient HTN: Continue losartan Monitor CKD stage III: Cr at baseline Monitor renal function Hypothyroidism: Continue levothyroxine Fibromyalgia: Follows with Dr. Gonzales for ortho injections in right knee and right shoulder Uses Lidocaine patch, Gabapentin, and Metaxalone On chronic narcotics Pain management consulted H/O Suicide Attempt: Depression and anxiety: Bipolar Disorder Continue duloxetine, also on Lamictal Psychiatry consulted GERD: Continue Protonix Code Status: DNR/DNI Disposition: PT/OT recommends rehab; case management on board. Admission and Anticipated Discharge Date Admission Date: December 04, 2022 Subjective Patient seen and examined at bedside. She reports that pain is well controlled on current regimen. Worked with PT OT in a.m. Review of Systems Review of Systems: All systems reviewed & are unremarkable except as noted in Subjective Physical Exam Physical Exam: Physical Exam: Vitals signs as noted above General Appearance:Moderately built and nourished, Chronic ill appearing, no apparent distress Head: normocephalic, Atraumatic Eyes: normal inspection, EOMI Neck: supple, Trachea midline Respiratory/Chest: Normal breath sounds, CTA, No accessory muscle use Cardiovascular: S1, S2, No murmur Abdomen/GI:Soft, Non tender, Bowel sounds present Extremities/Musculoskeletal:normal inspection, B/L LE edema, R hip surgical site in dressing Neurologic/Psych:AAOX3, grossly no focal neurological deficits Skin: normal color, warm Results & Data Results & Data Vital Signs (Past 12 Hours) Vital Signs Temp Pulse Resp BP Pulse Ox O2 Del Method 12/07/22 07:57 37.2 C 70 16 111/70 97 Room Air Laboratory Results Laboratory Results WBC 7.79 K/ul (4.8-10.8) 12/06/22 07:47 RBC 2.86 M/uL (4.20-5.40) L 12/06/22 07:47 Hgb 9.6 g/dl (12.0-16.0) L 12/06/22 07:47 Hct 28.8 % (37.0-47.0) L 12/06/22 07:47 MCV 100.7 fL (80.0-100.0) H 12/06/22 07:47 MCH 33.6 pg (25.0-34.0) 12/06/22 07:47 MCHC 33.3 g/dL (32.0-36.0) 12/06/22 07:47 RDW Std Deviation 50.4 fL (36.4-46.3) H 12/06/22 07:47 RDW Coeff of [place] 13.5 % (11.5-14.5) 12/06/22 07:47 Plt Count 153 K/uL (130-400) 12/06/22 07:47 MPV 9.6 fL (9.4-12.4) 12/06/22 07:47 Immature Gran % (Auto) 0.4 % 12/05/22 07:03 Neut % (Auto) 80.8 % 12/05/22 07:03 Lymph % (Auto) 8.8 % 12/05/22 07:03 Hayes % (Auto) 9.7 % 12/05/22 07:03 Eos % (Auto) 0.1 % 12/05/22 07:03 Baso % (Auto) 0.2 % 12/05/22 07:03 Neut # (Auto) 6.92 K/uL (1.40-6.50) H 12/05/22 07:03 Lymph # (Auto) 0.75 K/uL (1.2-3.4) L 12/05/22 07:03 Hayes # (Auto) 0.83 K/uL (0.11-0.59) H 12/05/22 07:03 Eos # (Auto) 0.01 K/uL (0-0.50) 12/05/22 07:03 Baso # (Auto) 0.02 K/uL (0-0.2) 12/05/22 07:03 Immature Gran # (Auto) 0.03 K/uL (0.01-0.20) 12/05/22 07:03 PT 10.3 Seconds (9.0-12.0) 12/04/22 09:20 INR 0.9 (0.9-1.1) 12/04/22 09:20 Sodium 138 mmol/L (136-145) 12/06/22 07:47 Potassium 4.1 mmol/L (3.5-5.1) 12/06/22 07:47 Chloride 109 mmol/L (98-107) H 12/06/22 07:47 Carbon Dioxide 24 mmol/L (21-32) 12/06/22 07:47 Anion Gap 5 (3-11) 12/06/22 07:47 BUN 9 mg/dl (6-23) 12/06/22 07:47 Creatinine 0.76 mg/dl (0.6-1.2) 12/06/22 07:47 Est Cr Clr Drug Dosing 78.8 ml/min 12/06/22 07:47 Est GFR ( Amer) 93.4 ml/min 12/06/22 07:47 Est GFR (Non-Af Amer) 80.6 ml/min 12/06/22 07:47 BUN/Creatinine Ratio 11.8 (10-20) 12/06/22 07:47 Glucose 117 mg/dl (70-99(Fasting)) H 12/06/22 07:47 Calcium 9.0 mg/dl (8.6-10.3) 12/06/22 07:47 Magnesium 1.8 mg/dl (1.7-2.4) 12/06/22 07:47 Total Bilirubin 0.5 mg/dl (0.2-1.0) 12/05/22 07:03 AST 14 U/L (13-39) 12/05/22 07:03 ALT 9 U/L (7-52) 12/05/22 07:03 Alkaline Phosphatase 47 U/L (34-104) 12/05/22 07:03 Total Creatine Kinase 33 U/L (26-192) 12/04/22 09:20 Total Protein 5.0 gm/dl (6.0-8.3) L D 12/05/22 07:03 Albumin 3.0 gm/dl (3.4-5.0) L 12/05/22 07:03 Globulin 2.0 gm/dl (2.5-4.0) L 12/05/22 07:03 Albumin/Globulin Ratio 1.5 (0.9-2) 12/05/22 07:03 25-OH Vitamin D Total 8.1 ng/ml (30-100) L 12/05/22 07:03 Procalcitonin 0.08 ng/ml (0-0.5) 12/05/22 07:03 Urine Color Yellow 12/05/22 02:00 Urine Appearance Turbid (Clear) A 12/05/22 02:00 Urine pH 8.0 (4.5-7.5) H 12/05/22 02:00 Ur Specific [place] 1.014 (1.000-1.030) 12/05/22 02:00 Urine Protein Trace (Negative) H 12/05/22 02:00 Urine Glucose (UA) Negative (Negative) 12/05/22 02:00 Urine Ketones Negative (Negative) 12/05/22 02:00 Urine Blood 1+ (Negative) H 12/05/22 02:00 Urine Nitrite Negative (Negative) 12/05/22 02:00 Urine Bilirubin Negative (Negative) 12/05/22 02:00 Urine Urobilinogen Negative (Negative) 12/05/22 02:00 Ur Leukocyte Esterase 3+ (Negative) H 12/05/22 02:00 Urine WBC (Auto) >30 /hpf (0-5) H 12/05/22 02:00 Urine RBC (Auto) 0-4 /hpf (0-4) 12/05/22 02:00 U Hyaline Cast (Auto) 1-5 /lpf (0-5) 12/05/22 02:00 U Epithel Cells (Auto) 20-30 /lpf (0-5) H 12/05/22 02:00 Urine Bacteria (Auto) Negative (Negative) 12/05/22 02:00 SARS-CoV-2, RNA, NAAT NEGATIVE (NEGATIVE) 12/04/22 09:34 Blood Type A Positive 12/04/22 09:23 Antibody Screen NEGATIVE 12/04/22 09:[address] 12/04/22 09:14 CT OF THE CERVICAL SPINE WITHOUT CONTRAST CLINICAL HISTORY: fall COMPARISON STUDY: Cervical spine CT October 26, 2022. TECHNIQUE: Helical axial images of the cervical spine were obtained without IV contrast. Sagittal and coronal reconstructions were viewed. Automated exposure control was utilized for the study. A dose lowering technique was utilized adhering to the principles of ALARA. FINDINGS: Reversal of the cervical lordosis with anterolisthesis of C4 on C5 is again noted. There is severe multilevel facet arthrosis and moderate to severe degenerative disc disease within the cervical spine. Extensive degenerative changes at the C1-C2 articulation are again noted. No acute cervical spine fracture is identified. There is no prevertebral edema. IMPRESSION: 1. No acute cervical spine fracture or subluxation. 2. Severe multilevel degenerative changes within the cervical spine. ACT 112: Negative or not required by law. Electronically signed by: Juan Canseco M.D. 12/04/2022 10:13 AM Chest X-Ray 12/04/22 09:14 SUPINE PORTABLE CHEST RADIOGRAPH CLINICAL HISTORY: fall COMPARISON STUDY: Chest radiograph October 26, 2022. FINDINGS: No pneumothorax is identified on supine exam. There are no airspace opacities. Pulmonary vascularity is normal. Postoperative findings within the thoracolumbar spine are partially imaged. IMPRESSION: No acute cardiopulmonary findings. ACT 112: Negative or not required by law. Electronically signed by: Juan Canseco M.D. 12/04/2022 11:[address] 12/04/22 09:14 CT OF THE HEAD WITHOUT CONTRAST CLINICAL HISTORY: fall, forehead contusion R COMPARISON STUDY: Head CT October 26, 2022. TECHNIQUE: Helical axial images of the head were obtained without IV contrast. Automated exposure control was utilized for the study. A dose lowering technique was utilized adhering to the principles of ALARA. FINDINGS: This exam is mildly compromised by motion artifact. No acute intracranial hemorrhage, midline shift or mass effect is present. Ventricular system is normal. Basal cisterns are patent. There are no extra-axial collections. White matter hypodensity suggests small vessel disease. No acute calvarial fracture is noted. There is dilatation of the bilateral superior ophthalmic veins, a new finding since CT of October 26, 2022. IMPRESSION: 1. No acute intracranial findings. Exam mildly compromised by motion artifact. 2. No calvarial fracture identified. 3. Interval development of abnormal dilatation of the bilateral superior ophthalmic veins since head CT of October 26, 2022. The etiology and clinical significance of this finding is uncertain and correlation with visual/eye symptoms is recommended. Findings discussed with Dr. Bills at time of dictation. ACT 112: Negative or not required by law. Electronically signed by: Juan Canseco M.D. 12/04/2022 10:07 AM Hip/Pelvis X-Ray 12/04/22 09:14 XR hip RT 2V w pelvis HISTORY: 67 years-old Female fall, hip pain acute right hip pain status post fall COMPARISON: 10/26/2022 TECHNIQUE: AP view the pelvis with 2 views of the right hip FINDINGS: Left hip arthroplasty. Spinal fusion hardware. Unremarkable appearance of the left hip arthroplasty. Demineralized appearance of the bones. There is an acute transcervical fracture of the right femur which demonstrates impaction with superolateral displacement of approximately 2.5 cm. No dislocation. Mild to moderate osteoarthritis of right hip. Lateral ankle soft tissue swelling. No additional acute fracture or dislocation. IMPRESSION: Acute impacted and displaced transcervical right femoral fracture. ACT 112: Negative or not required by law. The above report was generated using voice recognition software. It may contain grammatical, syntax or spelling errors. Electronically signed by: Carlitos Joy M.D. 12/04/2022 11:00 AM Hip X-Ray 12/04/22 16:19 XR hip RT min 2V CLINICAL HISTORY: Post-Operative implant position COMPARISON: Pelvis and right hip radiographs performed earlier today. FINDINGS: Alignment of the right hip arthroplasty is anatomic. There is no periprosthetic fracture or unexpected radiopaque foreign body. There are skin rogers. Postoperative findings within the spine are incidentally noted. IMPRESSION: Expected findings following right hip arthroplasty. ACT 112: Negative or not required by law. Electronically signed by: Juan Canseco M.D. 12/04/2022 5:30 PM (1) Closed fracture of right hip Encounter type: initial encounter Qualified Code(s): S72.001A - Fracture of unspecified part of neck of right femur, initial encounter for closed fracture (2) Fall Encounter type: initial encounter Qualified Code(s): W19.XXXA - Unspecified fall, initial encounter
[2022-12-07] MEDS: ERGOCALCIFEROL 50,000 UNITS 1250 MCG CAP PO SCH (16:26)
[2022-12-07] MEDS ORDERED: HYDROmorphone INJ 0.5 MG/0.5 ML SYR IV STA (19:41)
[2022-12-07] MEDS: DOCUSATE SODIUM/SENNA 50/8.6MG TAB PO SCH (20:09)
[2022-12-07] MEDS: TOPIRAMATE 50 MG TAB PO SCH (20:11)
[2022-12-08] MEDS: POLYETHYLENE (MIRALAX) 17 GM PACK PO SCH ×4 (00:50→17:26)
[2022-12-08] MEDS: oxyCODONE HCL IR 5 MG TAB (IMMEDIATE RELEASE) PO PRN ×6 (01:37→23:12)
[2022-12-08] MEDS: ACETAMINOPHEN 325 MG TAB PO SCH ×3 (01:37→18:44)
[2022-12-08] MEDS: HYDROmorphone INJ 0.5 MG/0.5 ML SYR IV PRN ×8 (02:58→22:21)
[2022-12-08] MEDS: LEVOTHYROXINE SODIUM 50 MCG TABLET PO SCH (05:40)
[2022-12-08 06:33] LABS: Hematocrit (blood only) 29.3 % (37.0-47.0); Hemoglobin 9.7 g/dl (12.0-16.0); Mean Corpuscular Hemoglobin 33.2 pg (25.0-34.0); Mean Corpuscular Hgb Conc 33.1 g/dL (32.0-36.0); Mean Corpuscular Volume 100.3 fL (80.0-100.0); Mean Platelet Volume 9.6 fL (9.4-12.4); Platelet Count 175 K/uL (130-400); RDW Coefficient of Variation 12.7 % (11.5-14.5); RDW Standard Deviation 46.9 fL (36.4-46.3); Red Blood Count 2.92 M/uL (4.20-5.40)
[2022-12-08 07:00] LABS: BUN Creatinine Ratio 13.5 (10-20); Calcium 9.3 mg/dl (8.6-10.3); Creatinine Clr Calc Pharmacy 73.4 ml/min; Est GFR (African American) 96.5 ml/min; Est GFR (Non-African American) 83.2 ml/min
[2022-12-08] MEDS: FERROUS SULFATE 325 MG TAB PO SCH ×2 (07:30→17:13)
[2022-12-08] MEDS: lamoTRIgine 100 MG TAB PO SCH ×2 (07:30→20:18)
[2022-12-08] MEDS: METAXALONE 800 MG TABLET PO SCH ×4 (07:30→20:19)
[2022-12-08] MEDS: PANTOprazole 40 MG TAB PO SCH ×2 (07:30→20:19)
[2022-12-08] MEDS: DULoxetine HCL 60 MG CAP PO SCH (07:31)
[2022-12-08] MEDS: GABAPENTIN 300 MG CAP PO SCH ×4 (07:31→20:18)
[2022-12-08] MEDS: ASPIRIN 81 MG ECTAB PO SCH ×2 (07:31→20:17)
[2022-12-08] MEDS: ADVANCED PROBIOTIC 1250 MG CAPSULE PO SCH (07:31)
[2022-12-08] MEDS: LOSARTAN POTASSIUM 50 MG TAB PO SCH (07:32)
[2022-12-08] MEDS: cefTRIAXone SODIUM 2,000 MG in DEXTROSE 5% 50 ML IV SCH (09:42)
--- NOTE | 2022-12-08 12:19 | Hospitalist Progress Note ---
Date of Service December 08, 2022 Assessment & Plan (1) Closed fracture of right hip: (2) Fall: (3) Hypertension: (4) CKD (chronic kidney disease), stage III: (5) Hypothyroidism: (6) History of suicide attempt: Plan 67 y/o female presents s/p mechanical fall early this morning at [facility]. Imaging revealed closed fracture of right femoral head. Additional PMH includes: HTN, fibromyalgia, depression and anxiety. Creatinine and hemoglobin stable; no history of anesthesia challenges in the past. Patient appears to have adequate risk for surgical repair. Pain control and NPO. Closed fracture of right hip: S/P fall: Postoperative acute blood loss anemia --hip/pelvis x-ray: acute transcervical fracture of the right femur which demonstrates impaction with superolateral displacement of approximately 2.5 cm. No dislocation. Mild to moderate osteoarthritis of right hip. --S/P Right Bipolar Hip Cemented by on 12/04/22 Weightbearing as tolerated Plan to continue aspirin twice a day for 6 weeks Pain control Fall precautions Continue Prevena VAC dressing for 7 days Needs follow-up with orthopedic surgery in 2 to 3 weeks No indication for blood transfusion currently Pain management consult w/o significant input, pt still requiring IV narcotic Continue current management Oxy IR 10mg q4hr, gabapentin, cymbalta, skelaxin UTI urine culture grew 20,000k E.coli, pansensitive continue Rocephin for 5 day course, currently Day 3/5 B/L superior ophthalmic vein dilatation Incidental finding on CT --CT head:No acute intracranial findings. Exam mildly compromised by motion artifact. No calvarial fracture identified. Interval development of abnormal dilatation of the bilateral superior ophthalmic veins since head CT of October 26, 2022. The etiology and clinical significance of this finding is uncertain and correlation with visual/eye symptoms is recommended -- Patient denies any blurry, double vision, ophthalmic pain Advised to follow-up with ophthalmology as outpatient Vitamin D Deficiency level of 8.1 started on 50,000IU weekly x 8 weeks then will need 25mcg thereafter repeat labs in 8 weeks HTN: Continue losartan Monitor CKD stage III: Cr at baseline Monitor renal function Hypothyroidism: Continue levothyroxine Fibromyalgia: Follows with Dr. Gonzales for ortho injections in right knee and right shoulder Uses Lidocaine patch, Gabapentin, and Metaxalone On chronic narcotics Pain management consulted H/O Suicide Attempt: Depression and anxiety: Bipolar Disorder Continue duloxetine, also on Lamictal Psychiatry consulted GERD: Continue Protonix Code Status: DNR/DNI Disposition: PT/OT recommends rehab; case management on board. Pt was seen and examined in collaboration with Dr. Seay, please see addendum Admission and Anticipated Discharge Date Admission Date: December 04, 2022 Supervising Physician Co-Signing Physician Notes Patient seen at bedside independently. Discussed with her provider. Patient is requiring increasing amount of narcotics for pain control. Pain management was consulted. Will remove Mchugh and place external catheter. Continue PT OT. Rehab when placement available Subjective Pt seen and examined in room 322-1. F/U hip bipolar hemiarthroplasty. Pt c/o pain this a.m. in R hip/groin. She feels she cannot do therapy if pain is not adequately controlled. At home she uses CBD and hemp for pain. Also states poor sleeping while in hospital and at home uses meditation. Denies f/c/s, chest pain, sob, n/v/d, abd pain. Review of Systems Review of Systems: All systems reviewed & are unremarkable except as noted in HPI & below Physical Exam Physical Exam: Gen: WD/WN, NAD, A&O x3, chronic ill appearing HEENT: Normocephalic, atraumatic, conjunctivae moist, sclerae anicteric, mucous membranes moist. Lung: Clear to Auscultation bilaterally, no wheezes/rales/rhonchi Heart: Regular rate, regular rhythm, no murmurs, rubs, or gallops Abdomen: Soft, NT, ND +BS x 4 Extremities: B/L edema, R hip vac in place Skin: Warm, no rash, negative turgor. Results & Data Results & Data Vital Signs (Past 12 Hours) Vital Signs Temp Pulse Resp BP Pulse Ox O2 Del Method 12/08/22 07:12 37.0 C 79 18 113/81 98 Room Air Laboratory Results Short CBC 12/08/22 Range/Units 06:02 WBC 6.60 (4.8-10.8) K/ul Hgb 9.7 L (12.0-16.0) g/dl Hct 29.3 L (37.0-47.0) % Plt Count 175 (130-400) K/uL BMP 12/08/22 06:02 Sodium 134 L Potassium 4.0 Chloride 106 Carbon Dioxide 22 BUN 10 Creatinine 0.74 Glucose 108 H Calcium 9.3 Medications Administered Current Inpatient Medications Acetaminophen (Acetaminophen 325 Mg Tab) 650 mg PO Q8H [facility] Stop: 01/03/23 18:59 Last Admin: 12/08/22 01:37 Dose: 650 mg Albuterol (Albuterol Hfa 8 Gm Inhaler) 2 puffs INH QID PRN PRN Reason: Shortness Of Breath Or Wheezing Stop: 01/05/23 15:30 Aspirin (Aspirin 81 Mg Ectab) 81 mg PO BID [facility] Stop: 01/03/23 20:59 Last Admin: 12/08/22 07:31 Dose: 81 mg Bisacodyl (Bisacodyl 10 Mg Supp) 10 mg [place] DAILY PRN PRN Reason: Constipation Stop: 01/03/23 12:15 Duloxetine HCl (Duloxetine Hcl 60 Mg Cap) 120 mg PO QAM [facility] Stop: 01/04/23 08:59 Last Admin: 12/08/22 07:31 Dose: 120 mg Ergocalciferol (Ergocalciferol 50,000 Units 1250 Mcg Cap) 50,000 units PO Q7D [facility] Stop: 01/06/23 15:44 Last Admin: 12/07/22 16:26 Dose: 50,000 units Ferrous Sulfate (Ferrous Sulfate 325 Mg Tab) 325 mg PO BIDM [facility] Stop: 01/03/23 16:59 Last Admin: 12/08/22 07:30 Dose: 325 mg Fluticasone Propionate (Fluticasone Propionate Na Spr 16 Gm Btl) 2 sprays NA DAILY PRN PRN Reason: Congestion Stop: 01/05/23 15:30 Gabapentin (Gabapentin 300 Mg Cap) 300 mg PO QID [facility] Stop: 01/03/23 16:59 Last Admin: 12/08/22 07:31 Dose: 300 mg Hydromorphone HCl (Hydromorphone Inj 0.5 Mg/0.5 Ml Syr) 0.5 mg IV Q2H PRN PRN Reason: Severe Pain (Scale 7, 8, 9,10) Stop: 12/18/22 11:12 Last Admin: 12/08/22 10:36 Dose: 0.5 mg Ceftriaxone Sodium 2,000 mg/ (Dextrose) 70 mls @ 100 mls/hr IV Q24H [facility]; Protocol Stop: 12/11/22 09:59 Last Admin: 12/08/22 09:42 Dose: 70 mls/hr Lactobacillus Acidophilus (Advanced Probiotic 1250 Mg Capsule) 2 cap PO DAILY S Stop: 01/05/23 09:59 Last Admin: 12/08/22 07:31 Dose: 2 cap Lamotrigine (Lamotrigine 100 Mg Tab) 150 mg PO BID [facility] Stop: 01/03/23 20:59 Last Admin: 12/08/22 07:30 Dose: 150 mg Levothyroxine Sodium (Levothyroxine Sodium 50 Mcg Tablet) 50 mcg PO DAILYBB [facility] Stop: 01/04/23 06:29 Last Admin: 12/08/22 05:40 Dose: 50 mcg Lidocaine (Lidocaine 5% 1 Patch) 1 patch TD DAILY PRN PRN Reason: Pain Stop: 01/03/23 15:20 Losartan Potassium (Losartan Potassium 50 Mg Tab) 50 mg PO QAM [facility] Stop: 01/04/23 08:59 Last Admin: 12/08/22 07:32 Dose: 50 mg Magnesium Hydroxide (Magnesium Hydroxide Susp 30 Ml Udc) 30 ml PO DAILY PRN PRN Reason: Constipation Stop: 01/03/23 12:15 Metaxalone (Metaxalone 800 Mg Tablet) 800 mg PO QID [facility] Stop: 01/03/23 16:59 Last Admin: 12/08/22 07:30 Dose: 800 mg Miscellaneous (Remove Lidoderm Patch) 1 each N/A DAILY@2100 [facility] Stop: 01/03/23 20:59 Last Admin: 12/07/22 20:14 Dose: 1 each Naloxone HCl (Naloxone Hcl 0.4 Mg/1 Ml Vial/Carp) 0.1 mg IV UD PRN PRN Reason: Opiate Overdose Stop: 01/03/23 12:15 Oxycodone HCl (Oxycodone Hcl Ir 5 Mg Tab (Immediate Release)) 10 mg PO Q4H PRN PRN Reason: Moderate Pain (Scale 4, 5, 6) Stop: 12/18/22 22:32 Last Admin: 12/08/22 09:42 Dose: 10 mg Pantoprazole Sodium (Pantoprazole 40 Mg Tab) 40 mg PO BID [facility] Stop: 01/03/23 20:59 Last Admin: 12/08/22 07:30 Dose: 40 mg Polyethylene Glycol (Polyethylene (Miralax) 17 Gm Pack) 17 gm PO Q6 [facility] Stop: 01/05/23 17:59 Last Admin: 12/08/22 05:04 Dose: Not Given Senna/Docusate Sodium (Docusate Sodium/Senna 50/8.6mg Tab) 2 tab PO HS IVAN Stop: 01/03/23 20:59 Last Admin: 12/07/22 20:09 Dose: Not Given Topiramate (Topiramate 100 Mg Tab) 200 mg PO [facility] Stop: 01/07/23 20:59 (1) Closed fracture of right hip Encounter type: initial encounter Qualified Code(s): S72.001A - Fracture of unspecified part of neck of right femur, initial encounter for closed fracture (2) Fall Encounter type: initial encounter Qualified Code(s): W19.XXXA - Unspecified fall, initial encounter
[2022-12-08] MEDS: DOCUSATE SODIUM/SENNA 50/8.6MG TAB PO SCH (20:17)
[2022-12-08] MEDS: TOPIRAMATE 100 MG TAB PO SCH (20:20)
[2022-12-09] MEDS: POLYETHYLENE (MIRALAX) 17 GM PACK PO SCH ×5 (00:19→23:29)
[2022-12-09] MEDS: HYDROmorphone INJ 0.5 MG/0.5 ML SYR IV PRN ×6 (00:56→23:28)
[2022-12-09] MEDS: ACETAMINOPHEN 325 MG TAB PO SCH ×3 (03:24→20:42)
[2022-12-09] MEDS: oxyCODONE HCL IR 5 MG TAB (IMMEDIATE RELEASE) PO PRN ×5 (04:07→22:18)
[2022-12-09] MEDS: LEVOTHYROXINE SODIUM 50 MCG TABLET PO SCH (05:58)
[2022-12-09] MEDS: FERROUS SULFATE 325 MG TAB PO SCH ×2 (08:02→16:30)
[2022-12-09] MEDS: DULoxetine HCL 60 MG CAP PO SCH (08:03)
[2022-12-09] MEDS: PANTOprazole 40 MG TAB PO SCH ×2 (08:03→20:44)
[2022-12-09] MEDS: lamoTRIgine 100 MG TAB PO SCH ×2 (08:03→20:44)
[2022-12-09] MEDS: GABAPENTIN 300 MG CAP PO SCH ×4 (08:04→20:43)
[2022-12-09] MEDS: ADVANCED PROBIOTIC 1250 MG CAPSULE PO SCH (08:04)
[2022-12-09] MEDS: LOSARTAN POTASSIUM 50 MG TAB PO SCH (08:04)
[2022-12-09] MEDS: ASPIRIN 81 MG ECTAB PO SCH ×2 (08:04→20:43)
[2022-12-09] MEDS: METAXALONE 800 MG TABLET PO SCH ×4 (08:04→20:44)
[2022-12-09] MEDS: cefTRIAXone SODIUM 2,000 MG in DEXTROSE 5% 50 ML IV SCH (09:51)
[2022-12-09] MEDS ORDERED: HYDROmorphone INJ 0.5 MG/0.5 ML SYR IV PRN (10:16)
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
--- NOTE | 2022-12-09 20:20 | Progress Notes ---
SUBJECTIVE: A 67-year-old female postoperative day #5 from a right cemented bipolar hip arthroplasty for fracture. She seems to be getting a little bit better each day. She continues to complain of a lot of pain, but looks pretty comfortable. OBJECTIVE: VITAL SIGNS: Temperature is 37.2. Vital signs are stable. GENERAL: Shows a pleasant middle-aged female. She is sitting up in bed and looks comfortable. EXTREMITIES: Examination of the right hip reveals the Prevena VAC dressing to be in place. Her thig h is soft and supple. Leg lengths were equal. She is neurologically intact. LABORATORY DATA: No new labs. ASSESSMENT: A 67-year-old female, now 5 days out from a right cemented bipolar hip arthroplasty for fracture. She has done reasonably well. Not having a lot of other medical and psychiatric issues to manage. PLAN: 1. DVT prophylaxis includes thigh-high TEDs, SCDs, and aspirin twice a day for 6 weeks. 2. PT/OT. She can fully weightbear as tolerated. She does need to obey hip precautions. 3. Pain control, seems to be doing okay with current pain regimen. 4. Disposition: She is okay for discharge any time. She is going to go to either group home f acility or rehab facility. I need to see her back 2 weeks out from surgery date. Any orthopedic que stions can be directed to me at [phone]. Job ID: [id number]
[2022-12-09] MEDS: DOCUSATE SODIUM/SENNA 50/8.6MG TAB PO SCH (20:43)
[2022-12-09] MEDS: TOPIRAMATE 100 MG TAB PO SCH (20:47)
[2022-12-10] MEDS: oxyCODONE HCL IR 5 MG TAB (IMMEDIATE RELEASE) PO PRN ×2 (02:21→06:20)
[2022-12-10] MEDS: ACETAMINOPHEN 325 MG TAB PO SCH ×3 (03:22→19:45)
[2022-12-10] MEDS: HYDROmorphone INJ 0.5 MG/0.5 ML SYR IV PRN ×2 (03:36→07:55)
[2022-12-10] MEDS: LEVOTHYROXINE SODIUM 50 MCG TABLET PO SCH (05:27)
[2022-12-10] MEDS: POLYETHYLENE (MIRALAX) 17 GM PACK PO SCH ×3 (05:28→17:53)
[2022-12-10] MEDS: GABAPENTIN 300 MG CAP PO SCH ×4 (07:53→19:49)
[2022-12-10] MEDS: METAXALONE 800 MG TABLET PO SCH ×4 (07:54→19:50)
[2022-12-10] MEDS: LOSARTAN POTASSIUM 50 MG TAB PO SCH (07:54)
[2022-12-10] MEDS: DULoxetine HCL 60 MG CAP PO SCH (07:54)
[2022-12-10] MEDS: lamoTRIgine 100 MG TAB PO SCH ×2 (07:54→19:49)
[2022-12-10] MEDS: ADVANCED PROBIOTIC 1250 MG CAPSULE PO SCH (07:54)
[2022-12-10] MEDS: ASPIRIN 81 MG ECTAB PO SCH ×2 (07:55→19:46)
[2022-12-10] MEDS ORDERED: oxyCODONE HCL IR 5 MG TAB (IMMEDIATE RELEASE) PO PRN (07:55)
[2022-12-10] MEDS: PANTOprazole 40 MG TAB PO SCH ×2 (07:55→19:50)
[2022-12-10] MEDS: FERROUS SULFATE 325 MG TAB PO SCH ×2 (07:55→17:54)
[2022-12-10] MEDS: cefTRIAXone SODIUM 2,000 MG in DEXTROSE 5% 50 ML IV SCH (10:33)
[2022-12-10] MEDS: MoRPHine SULFATE IR 15 MG TAB (IMMEDIATE RELEASE) PO PRN ×2 (13:32→18:56)
--- NOTE | 2022-12-10 17:42 | Hospitalist Progress Note ---
Date of Service December 10, 2022 Assessment & Plan (1) Closed fracture of right hip: (2) Fall: (3) Hypertension: (4) CKD (chronic kidney disease), stage III: (5) Hypothyroidism: (6) History of suicide attempt: Plan 67 y/o female presents s/p mechanical fall early this morning at [facility]. Imaging revealed closed fracture of right femoral head. Additional PMH includes: HTN, fibromyalgia, depression and anxiety. Creatinine and hemoglobin stable; no history of anesthesia challenges in the past. Patient appears to have adequate risk for surgical repair. Pain control and NPO. Closed fracture of right hip: S/P fall: Postoperative acute blood loss anemia --hip/pelvis x-ray: acute transcervical fracture of the right femur which demonstrates impaction with superolateral displacement of approximately 2.5 cm. No dislocation. Mild to moderate osteoarthritis of right hip. --S/P Right Bipolar Hip Cemented by on 12/04/22 Weightbearing as tolerated Plan to continue aspirin twice a day for 6 weeks Pain control Fall precautions Continue Prevena VAC dressing for 7 days Needs follow-up with orthopedic surgery in 2-3 weeks No indication for blood transfusion currently Pain management consult w/o significant input, pt still requiring IV narcotic - will trial wean down of dilaudid, oxycodone Pt was very tearful when discussing pain regimen Continue current management Oxy IR, gabapentin, cymbalta, skelaxin CM coordinating discharge for tomorrow UTI Urine culture grew 20,000k E.coli, pansensitive Completed Rocephin for 5 day course B/L superior ophthalmic vein dilatation Incidental finding on CT --CT head:No acute intracranial findings. Exam mildly compromised by motion artifact. No calvarial fracture identified. Interval development of abnormal dilatation of the bilateral superior ophthalmic veins since head CT of October 26, 2022. The etiology and clinical significance of this finding is uncertain and correlation with visual/eye symptoms is recommended -- Patient denies any blurry, double vision, ophthalmic pain Advised to follow-up with ophthalmology as outpatient Vitamin D Deficiency level of 8.1 started on 50,000IU weekly x 8 weeks then will need 25mcg thereafter repeat labs in 8 weeks HTN: Continue losartan Monitor CKD stage III: Cr at baseline Monitor renal function Hypothyroidism: Continue levothyroxine Fibromyalgia: Follows with Dr. Gonzales for ortho injections in right knee and right shoulder Uses Lidocaine patch, Gabapentin, and Metaxalone On chronic narcotics Pain management consulted H/O Suicide Attempt: Depression and anxiety: Bipolar Disorder Continue duloxetine, also on Lamictal Psychiatry consulted GERD: Continue Protonix Code Status: DNR/DNI Disposition: PT/OT recommends rehab; case management on board. Pt was seen and examined in collaboration with Dr. Seay, please see addendum I spent a total of 45 minutes coordinating, documenting, and providing care for this patient excluding time spent in the performance of separately billed s ervices. Admission and Anticipated Discharge Date Admission Date: December 04, 2022 Supervising Physician Co-Signing Physician Notes Patient seen and examined at bedside. Discussed with above provider. Extensive discussion was done with the patient regarding use of narcotics for pain control. Patient was verbally aggressive when discussing regarding narcotic pain medication was brought up. She was not open to alternative medications for pain control. She wanted to change oxycodone to morphine. She stated that she will try to not take it as frequently as she was taking (that is every 4 hours.). She reports that she is planning to get discharged back to [facility] tomorrow. Review of Systems Review of Systems: At least ten systems reviewed and negative except as noted in the HPI. Physical Exam Physical Exam: Gen: WD/WN, NAD, sitting in bedside chair, A&Ox3, crying intermittently during exam HEENT: Normocephalic, atraumatic, conjunctivae moist, sclerae anicteric, mucous membranes moist Lung: Clear to Auscultation bilaterally, no wheezes/rales/rhonchi Heart: Regular rate, regular rhythm, no murmurs, rubs, or gallops Abdomen: Soft, NT, ND +BS x 4 Extremities: B/L edema, R hip vac in place Skin: Warm, no rash Results & Data Results & Data Vital Signs (Past 12 Hours) Vital Signs Temp Pulse Resp BP Pulse Ox O2 Del Method 12/10/22 15:48 36.7 C 58 L 16 123/78 95 Room Air 12/10/22 07:52 36.5 C 83 16 133/83 95 Room Air (1) Closed fracture of right hip Encounter type: initial encounter Qualified Code(s): S72.001A - Fracture of unspecified part of neck of right femur, initial encounter for closed fracture (2) Fall Encounter type: initial encounter Qualified Code(s): W19.XXXA - Unspecified fall, initial encounter
[2022-12-10] MEDS: DOCUSATE SODIUM/SENNA 50/8.6MG TAB PO SCH (19:48)
[2022-12-10] MEDS: TOPIRAMATE 100 MG TAB PO SCH (19:51)
[2022-12-11] MEDS: POLYETHYLENE (MIRALAX) 17 GM PACK PO SCH (00:14)
[2022-12-11] MEDS: MoRPHine SULFATE IR 15 MG TAB (IMMEDIATE RELEASE) PO PRN ×6 (00:21→20:35)
[2022-12-11] MEDS ORDERED: HYDROmorphone INJ 0.5 MG/0.5 ML SYR IV STA (01:44)
[2022-12-11] MEDS: ACETAMINOPHEN 325 MG TAB PO SCH ×3 (02:12→18:33)
[2022-12-11] MEDS: LEVOTHYROXINE SODIUM 50 MCG TABLET PO SCH (06:19)
[2022-12-11] MEDS: ADVANCED PROBIOTIC 1250 MG CAPSULE PO SCH (09:18)
[2022-12-11] MEDS: METAXALONE 800 MG TABLET PO SCH ×4 (09:19→20:20)
[2022-12-11] MEDS: LOSARTAN POTASSIUM 50 MG TAB PO SCH (09:19)
[2022-12-11] MEDS: FERROUS SULFATE 325 MG TAB PO SCH ×2 (09:19→17:31)
[2022-12-11] MEDS: PANTOprazole 40 MG TAB PO SCH ×2 (09:19→20:22)
[2022-12-11] MEDS: lamoTRIgine 100 MG TAB PO SCH ×2 (09:19→20:21)
[2022-12-11] MEDS: DULoxetine HCL 60 MG CAP PO SCH (09:19)
[2022-12-11] MEDS: GABAPENTIN 300 MG CAP PO SCH ×4 (09:19→20:20)
[2022-12-11] MEDS: ASPIRIN 81 MG ECTAB PO SCH ×2 (09:19→20:22)
--- NOTE | 2022-12-11 12:44 | Hospitalist Progress Note ---
Date of Service December 11, 2022 Assessment & Plan (1) Closed fracture of right hip: (2) Fall: (3) Hypertension: (4) CKD (chronic kidney disease), stage III: (5) Hypothyroidism: (6) History of suicide attempt: Plan 67 y/o female presents s/p mechanical fall early this morning at [facility]. Imaging revealed closed fracture of right femoral head. Additional PMH includes: HTN, fibromyalgia, depression and anxiety. Creatinine and hemoglobin stable; no history of anesthesia challenges in the past. Closed fracture of right hip: S/P fall: Postoperative acute blood loss anemia --hip/pelvis x-ray: acute transcervical fracture of the right femur which demonstrates impaction with superolateral displacement of approximately 2.5 cm. No dislocation. Mild to moderate osteoarthritis of right hip. --S/P Right Bipolar Hip Cemented by on 12/04/22 Weightbearing as tolerated Plan to continue aspirin twice a day for 6 weeks Pain control, fall precautions, continue PT Continue Prevena VAC dressing for 7 days Needs follow-up with orthopedic surgery in 2 weeks after discharge No indication for blood transfusion currently Pain management consult w/o significant input, have weaned IV narcotics, discontinued oxycodone in favor of current regimen morphine 15mg PO Q46 PRN severe pain, which is working well Continue gabapentin, Cymbalta, Skelaxin as well Pt becomes tearful when discussing pain regimen. Feels frustrated Awaiting appeals process for discharge but medically appropriate Appreciate CM coordination efforts UTI Urine culture grew 20,000k E.coli, pansensitive Completed Rocephin for 5 day course B/L superior ophthalmic vein dilatation Incidental finding on CT --CT head:No acute intracranial findings. Exam mildly compromised by motion artifact. No calvarial fracture identified. Interval development of abnormal dilatation of the bilateral superior ophthalmic veins since head CT of October 26, 2022. The etiology and clinical significance of this finding is uncertain and correlation with visual/eye symptoms is recommended -- Patient denies any blurry, double vision, ophthalmic pain Advised to follow-up with ophthalmology as outpatient Vitamin D Deficiency level of 8.1 Started on 50,000IU weekly x 8 weeks then will need 25mcg thereafter repeat labs in 8 weeks HTN: Continue losartan Monitor CKD stage III: Cr at baseline Monitor renal function Hypothyroidism: Continue levothyroxine Fibromyalgia: Follows with Dr. Gonzales for ortho injections in right knee and right shoulder Uses Lidocaine patch, Gabapentin, and Metaxalone On chronic narcotics Pain management consulted H/O Suicide Attempt: Depression and anxiety: Bipolar Disorder Continue duloxetine, also on Lamictal Psychiatry consulted GERD: Continue Protonix Code Status: DNR/DNI Disposition: PT/OT recommends rehab; case management on board. Pt was seen and examined in collaboration with Dr. Seay, please see addendum I spent a total of 60 minutes coordinating, documenting, and providing care for this patient excluding time spent in the performance of separately billed services. Admission and Anticipated Discharge Date Admission Date: December 04, 2022 Supervising Physician Co-Signing Physician Notes Patient seen at bedside. Discussed with above provider. Patient underwent right sided hip surgery on December 04, 2022(8 days ago) Patient is currently on oral medications for pain control. Trial to decrease amount of narcotics has been unsuccessful due to patient's aggressive behavior. She is not on IV narcotics. Patient has frequently refused to participate with PT OT during the hospitalization. She reports that she has made good progress today with PT. She had bowel movement and is voiding without any difficulties. Her main concern is availability of narcotics after her discharge. patient was reassured that she will be prescribed 15 tablets of the current narcotic medication she is on the discharge. However, she continues to resist discharge. Patient is medically stable to be discharged Subjective Pt seen and examined in room 322-1 in F/U for hip bipolar hemiarthroplasty. Had extensive conversation due to plans for patient discharged today. States she is still uncomfortable and does not feel ready for discharge to [facility] today. Her support person and friend Brandon is at bedside. Is planning to appeal the discharge process. Cries intermittently about pain and general frustrations about the medical system, stating at one point, "I have been dealing with chronic pain longer than you have been alive. No one will help me." Case management also at bedside. Does state that adjustment to p.o. morphine as needed yesterday has significantly improved pain control. Had a bowel movement this morning and is urinating without issue. Tolerating diet. No fever, chills, Lantus, chest pain, shortness of breath, nausea, vomiting, abdominal pain. Review of Systems Review of Systems: At least ten systems reviewed and negative except as noted in the HPI. Physical Exam Physical Exam: Gen: WD/WN, NAD, lying in bed, A&Ox3, crying intermittently during exam HEENT: Normocephalic, atraumatic, conjunctivae moist, sclerae anicteric, mucous membranes moist Lung: Clear to Auscultation bilaterally, no wheezes/rales/rhonchi Heart: Regular rate, regular rhythm, no murmurs, rubs, or gallops Abdomen: Soft, NT, ND +BS x 4 Extremities: B/L edema, R hip vac in place Skin: Warm, no rash Results & Data Results & Data Vital Signs (Past 12 Hours) Vital Signs Temp Pulse Resp BP Pulse Ox O2 Del Method 12/11/22 07:10 37.0 C 82 18 134/83 97 Room Air (1) Closed fracture of right hip Encounter type: initial encounter Qualified Code(s): S72.001A - Fracture of unspecified part of neck of right femur, initial encounter for closed fracture (2) Fall Encounter type: initial encounter Qualified Code(s): W19.XXXA - Unspecified fall, initial encounter
[2022-12-11] MEDS: DOCUSATE SODIUM/SENNA 50/8.6MG TAB PO SCH (20:23)
[2022-12-11] MEDS: TOPIRAMATE 100 MG TAB PO SCH (20:24)
[2022-12-12] MEDS: MoRPHine SULFATE IR 15 MG TAB (IMMEDIATE RELEASE) PO PRN ×6 (00:36→20:30)
[2022-12-12] MEDS: ACETAMINOPHEN 325 MG TAB PO SCH ×3 (03:26→20:37)
[2022-12-12] MEDS: LEVOTHYROXINE SODIUM 50 MCG TABLET PO SCH (04:40)
[2022-12-12] MEDS: ASPIRIN 81 MG ECTAB PO SCH ×2 (08:36→20:34)
[2022-12-12] MEDS: FERROUS SULFATE 325 MG TAB PO SCH ×2 (08:36→16:36)
[2022-12-12] MEDS: DULoxetine HCL 60 MG CAP PO SCH (08:36)
[2022-12-12] MEDS: GABAPENTIN 300 MG CAP PO SCH ×4 (08:37→20:33)
[2022-12-12] MEDS: LOSARTAN POTASSIUM 50 MG TAB PO SCH (08:38)
[2022-12-12] MEDS: ADVANCED PROBIOTIC 1250 MG CAPSULE PO SCH (08:38)
[2022-12-12] MEDS: lamoTRIgine 100 MG TAB PO SCH ×2 (08:38→20:35)
[2022-12-12] MEDS: PANTOprazole 40 MG TAB PO SCH ×2 (08:38→20:34)
[2022-12-12] MEDS: METAXALONE 800 MG TABLET PO SCH ×4 (08:39→20:34)
[2022-12-12] MEDS: DICLOFENAC SOD 1% GEL 100 GM TUBE EXT PRN (12:30)
--- NOTE | 2022-12-12 14:19 | Hospitalist Progress Note ---
Date of Service December 12, 2022 Assessment & Plan (1) Closed fracture of right hip: (2) Fall: (3) Hypertension: (4) CKD (chronic kidney disease), stage III: (5) Hypothyroidism: (6) History of suicide attempt: Plan 67 y/o female presents s/p mechanical fall early this morning at [facility]. Imaging revealed closed fracture of right femoral head. Additional PMH includes: HTN, fibromyalgia, depression and anxiety. Creatinine and hemoglobin stable; no history of anesthesia challenges in the past. Closed fracture of right hip: S/P fall: Postoperative acute blood loss anemia --hip/pelvis x-ray: acute transcervical fracture of the right femur which demonstrates impaction with superolateral displacement of approximately 2.5 cm. No dislocation. Mild to moderate osteoarthritis of right hip. --S/P Right Bipolar Hip Cemented by on 12/04/22 Weightbearing as tolerated Plan to continue aspirin twice a day for 6 weeks Pain control, fall precautions, continue PT Continue Prevena VAC dressing for 7 days Needs follow-up with orthopedic surgery in 2 weeks after discharge Patient underwent right sided hip surgery on December 04, 2022(8 days ago) Patient is currently on oral medications for pain control. Trial to decrease amount of narcotics has been unsuccessful due to patient's aggressive behavior. She is not on IV narcotics. She had bowel movement and is voiding without any difficulties. Her main concern is availability of narcotics after her discharge. patient was reassured that she will be prescribed 15 tablets of the current narcotic medication she is on the discharge. However, she continues to resist discharge. Patient is medically stable to be discharged UTI Urine culture grew 20,000k E.coli, pansensitive Completed Rocephin for 5 day course B/L superior ophthalmic vein dilatation Incidental finding on CT --CT head:No acute intracranial findings. Exam mildly compromised by motion artifact. No calvarial fracture identified. Interval development of abnormal dilatation of the bilateral superior ophthalmic veins since head CT of October 26, 2022. The etiology and clinical significance of this finding is uncertain and correlation with visual/eye symptoms is recommended -- Patient denies any blurry, double vision, ophthalmic pain Advised to follow-up with ophthalmology as outpatient Vitamin D Deficiency level of 8.1 Started on 50,000IU weekly x 8 weeks then will need 25mcg thereafter repeat labs in 8 weeks HTN: Continue losartan Monitor CKD stage III: Cr at baseline Hypothyroidism: Continue levothyroxine Fibromyalgia: Follows with Dr. Gonzales for ortho injections in right knee and right shoulder Uses Lidocaine patch, Gabapentin, and Metaxalone On chronic narcotics H/O Suicide Attempt: Depression and anxiety: Bipolar Disorder Continue duloxetine, also on Lamictal Psychiatry consulted GERD: Continue Protonix Code Status: DNR/DNI Disposition: Patient medically stable for discharge. Plan was for her to go to [facility] which she agreed upon. discharge order placed on December 11, 2022. Awaiting appeal process. Time spent evaluating patient, direct bedside care, chart review, placing orders, interpretation of diagnostic studies, discussion with consultants, patient, and family members, as well as other required patient management activities is Admission and Anticipated Discharge Date Admission Date: December 04, 2022 Subjective Patient seen and examined at bedside. She is sitting up on the bed eating breakfast; not in distress. She reports ongoing pain; requiring morphine every 4 hour. Discussed with her regarding use of opioid medication; she is not open to changing the dose or frequency. Review of Systems Review of Systems: All systems reviewed & are unremarkable except as noted in Subjective Physical Exam Physical Exam: Physical Exam: Vitals signs as noted above General Appearance:Moderately built and nourished, Chronic ill appearing, no apparent distress Head: normocephalic, Atraumatic Eyes: normal inspection, EOMI Neck: supple, Trachea midline Respiratory/Chest: Normal breath sounds, CTA, No accessory muscle use Cardiovascular: S1, S2, No murmur Abdomen/GI:Soft, Non tender, Bowel sounds present Extremities/Musculoskeletal:normal inspection, B/L LE edema, R hip surgical site in dressing Neurologic/Psych:AAOX3, grossly no focal neurological deficits Skin: normal color, warm Results & Data Results & Data Vital Signs (Past 12 Hours) Vital Signs Temp Pulse Resp BP Pulse Ox O2 Del Method 12/12/22 07:38 37.0 C 78 17 158/85 H 97 Room Air Laboratory Results Laboratory Results WBC 6.60 K/ul (4.8-10.8) 12/08/22 06:02 RBC 2.92 M/uL (4.20-5.40) L 12/08/22 06:02 Hgb 9.7 g/dl (12.0-16.0) L 12/08/22 06:02 Hct 29.3 % (37.0-47.0) L 12/08/22 06:02 MCV 100.3 fL (80.0-100.0) H 12/08/22 06:02 MCH 33.2 pg (25.0-34.0) 12/08/22 06:02 MCHC 33.1 g/dL (32.0-36.0) 12/08/22 06:02 RDW Std Deviation 46.9 fL (36.4-46.3) H 12/08/22 06:02 RDW Coeff of [place] 12.7 % (11.5-14.5) 12/08/22 06:02 Plt Count 175 K/uL (130-400) 12/08/22 06:02 MPV 9.6 fL (9.4-12.4) 12/08/22 06:02 Immature Gran % (Auto) 0.4 % 12/05/22 07:03 Neut % (Auto) 80.8 % 12/05/22 07:03 Lymph % (Auto) 8.8 % 12/05/22 07:03 Tyrrell % (Auto) 9.7 % 12/05/22 07:03 Eos % (Auto) 0.1 % 12/05/22 07:03 Baso % (Auto) 0.2 % 12/05/22 07:03 Neut # (Auto) 6.92 K/uL (1.40-6.50) H 12/05/22 07:03 Lymph # (Auto) 0.75 K/uL (1.2-3.4) L 12/05/22 07:03 Tyrrell # (Auto) 0.83 K/uL (0.11-0.59) H 12/05/22 07:03 Eos # (Auto) 0.01 K/uL (0-0.50) 12/05/22 07:03 Baso # (Auto) 0.02 K/uL (0-0.2) 12/05/22 07:03 Immature Gran # (Auto) 0.03 K/uL (0.01-0.20) 12/05/22 07:03 PT 10.3 Seconds (9.0-12.0) 12/04/22 09:20 INR 0.9 (0.9-1.1) 12/04/22 09:20 Sodium 134 mmol/L (136-145) L 12/08/22 06:02 Potassium 4.0 mmol/L (3.5-5.1) 12/08/22 06:02 Chloride 106 mmol/L (98-107) 12/08/22 06:02 Carbon Dioxide 22 mmol/L (21-32) 12/08/22 06:02 Anion Gap 6 (3-11) 12/08/22 06:02 BUN 10 mg/dl (6-23) 12/08/22 06:02 Creatinine 0.74 mg/dl (0.6-1.2) 12/08/22 06:02 Est Cr Clr Drug Dosing 73.4 ml/min 12/08/22 06:02 Est GFR ( Amer) 96.5 ml/min 12/08/22 06:02 Est GFR (Non-Af Amer) 83.2 ml/min 12/08/22 06:02 BUN/Creatinine Ratio 13.5 (10-20) 12/08/22 06:02 Glucose 108 mg/dl (70-99(Fasting)) H 12/08/22 06:02 Calcium 9.3 mg/dl (8.6-10.3) 12/08/22 06:02 Magnesium 1.8 mg/dl (1.7-2.4) 12/06/22 07:47 Total Bilirubin 0.5 mg/dl (0.2-1.0) 12/05/22 07:03 AST 14 U/L (13-39) 12/05/22 07:03 ALT 9 U/L (7-52) 12/05/22 07:03 Alkaline Phosphatase 47 U/L (34-104) 12/05/22 07:03 Total Creatine Kinase 33 U/L (26-192) 12/04/22 09:20 Total Protein 5.0 gm/dl (6.0-8.3) L D 12/05/22 07:03 Albumin 3.0 gm/dl (3.4-5.0) L 12/05/22 07:03 Globulin 2.0 gm/dl (2.5-4.0) L 12/05/22 07:03 Albumin/Globulin Ratio 1.5 (0.9-2) 12/05/22 07:03 25-OH Vitamin D Total 8.1 ng/ml (30-100) L 12/05/22 07:03 Procalcitonin 0.08 ng/ml (0-0.5) 12/05/22 07:03 Urine Color Yellow 12/05/22 02:00 Urine Appearance Turbid (Clear) A 12/05/22 02:00 Urine pH 8.0 (4.5-7.5) H 12/05/22 02:00 Ur Specific [place] 1.014 (1.000-1.030) 12/05/22 02:00 Urine Protein Trace (Negative) H 12/05/22 02:00 Urine Glucose (UA) Negative (Negative) 12/05/22 02:00 Urine Ketones Negative (Negative) 12/05/22 02:00 Urine Blood 1+ (Negative) H 12/05/22 02:00 Urine Nitrite Negative (Negative) 12/05/22 02:00 Urine Bilirubin Negative (Negative) 12/05/22 02:00 Urine Urobilinogen Negative (Negative) 12/05/22 02:00 Ur Leukocyte Esterase 3+ (Negative) H 12/05/22 02:00 Urine WBC (Auto) >30 /hpf (0-5) H 12/05/22 02:00 Urine RBC (Auto) 0-4 /hpf (0-4) 12/05/22 02:00 U Hyaline Cast (Auto) 1-5 /lpf (0-5) 12/05/22 02:00 U Epithel Cells (Auto) 20-30 /lpf (0-5) H 12/05/22 02:00 Urine Bacteria (Auto) Negative (Negative) 12/05/22 02:00 SARS-CoV-2, RNA, NAAT NEGATIVE (NEGATIVE) 12/04/22 09:34 Blood Type A Positive 12/04/22 09:23 Antibody Screen NEGATIVE 12/04/22 09:[address] 12/04/22 09:14 CT OF THE CERVICAL SPINE WITHOUT CONTRAST CLINICAL HISTORY: fall COMPARISON STUDY: Cervical spine CT October 26, 2022. TECHNIQUE: Helical axial images of the cervical spine were obtained without IV contrast. Sagittal and coronal reconstructions were viewed. Automated exposure control was utilized for the study. A dose lowering technique was utilized adhering to the principles of ALARA. FINDINGS: Reversal of the cervical lordosis with anterolisthesis of C4 on C5 is again noted. There is severe multilevel facet arthrosis and moderate to severe degenerative disc disease within the cervical spine. Extensive degenerative changes at the C1-C2 articulation are again noted. No acute cervical spine fracture is identified. There is no prevertebral edema. IMPRESSION: 1. No acute cervical spine fracture or subluxation. 2. Severe multilevel degenerative changes within the cervical spine. ACT 112: Negative or not required by law. Electronically signed by: Juan Canseco M.D. 12/04/2022 10:13 AM Chest X-Ray 12/04/22 09:14 SUPINE PORTABLE CHEST RADIOGRAPH CLINICAL HISTORY: fall COMPARISON STUDY: Chest radiograph October 26, 2022. FINDINGS: No pneumothorax is identified on supine exam. There are no airspace opacities. Pulmonary vascularity is normal. Postoperative findings within the thoracolumbar spine are partially imaged. IMPRESSION: No acute cardiopulmonary findings. ACT 112: Negative or not required by law. Electronically signed by: Juan Canseco M.D. 12/04/2022 11:[address] 12/04/22 09:14 CT OF THE HEAD WITHOUT CONTRAST CLINICAL HISTORY: fall, forehead contusion R COMPARISON STUDY: Head CT October 26, 2022. TECHNIQUE: Helical axial images of the head were obtained without IV contrast. Automated exposure control was utilized for the study. A dose lowering technique was utilized adhering to the principles of ALARA. FINDINGS: This exam is mildly compromised by motion artifact. No acute intracranial hemorrhage, midline shift or mass effect is present. Ventricular system is normal. Basal cisterns are patent. There are no extra-axial colle ctions. White matter hypodensity suggests small vessel disease. No acute calvarial fracture is noted. There is dilatation of the bilateral superior ophthalmic veins, a new finding since CT of October 26, 2022. IMPRESSION: 1. No acute intracranial findings. Exam mildly compromised by motion artifact. 2. No calvarial fracture identified. 3. Interval development of abnormal dilatation of the bilateral superior ophthalmic veins since head CT of October 26, 2022. The etiology and clinical significance of this finding is uncertain and correlation with visual/eye symptoms is recommended. Findings discussed with Dr. Bills at time of dictation. ACT 112: Negative or not required by law. Electronically signed by: Juan Canseco M.D. 12/04/2022 10:07 AM Hip/Pelvis X-Ray 12/04/22 09:14 XR hip RT 2V w pelvis HISTORY: 67 years-old Female fall, hip pain acute right hip pain status post fall COMPARISON: 10/26/2022 TECHNIQUE: AP view the pelvis with 2 views of the right hip FINDINGS: Left hip arthroplasty. Spinal fusion hardware. Unremarkable appearance of the left hip arthroplasty. Demineralized appearance of the bones. There is an acute transcervical fracture of the right femur which demonstrates impaction with superolateral displacement of approximately 2.5 cm. No dislocation. Mild to moderate osteoarthritis of right hip. Lateral ankle soft tissue swelling. No additional acute fracture or dislocation. IMPRESSION: Acute impacted and displaced transcervical right femoral fracture. ACT 112: Negative or not required by law. The above report was generated using voice recognition software. It may contain grammatical, syntax or spelling errors. Electronically signed by: Carlitos Joy M.D. 12/04/2022 11:00 AM Hip X-Ray 12/04/22 16:19 XR hip RT min 2V CLINICAL HISTORY: Post-Operative implant position COMPARISON: Pelvis and right hip radiographs performed earlier today. FINDINGS: Alignment of the right hip arthroplasty is anatomic. There is no periprosthetic fracture or unexpected radiopaque foreign body. There are skin rogers. Postoperative findings within the spine are incidentally noted. IMPRESSION: Expected findings following right hip arthroplasty. ACT 112: Negative or not required by law. Electronically signed by: Juan Canseco M.D. 12/04/2022 5:30 PM (1) Closed fracture of right hip Encounter type: initial encounter Qualified Code(s): S72.001A - Fracture of unspecified part of neck of right femur, initial encounter for closed fracture (2) Fall Encounter type: initial encounter Qualified Code(s): W19.XXXA - Unspecified fall, initial encounter
[2022-12-12] MEDS: TOPIRAMATE 100 MG TAB PO SCH (20:34)
[2022-12-12] MEDS: DOCUSATE SODIUM/SENNA 50/8.6MG TAB PO SCH (20:37)
[2022-12-13] MEDS: MoRPHine SULFATE IR 15 MG TAB (IMMEDIATE RELEASE) PO PRN ×6 (00:31→21:05)
[2022-12-13] MEDS: ACETAMINOPHEN 325 MG TAB PO SCH ×3 (03:35→18:21)
[2022-12-13] MEDS: LEVOTHYROXINE SODIUM 50 MCG TABLET PO SCH (04:38)
[2022-12-13] MEDS: FERROUS SULFATE 325 MG TAB PO SCH ×2 (08:35→16:59)
[2022-12-13] MEDS: ASPIRIN 81 MG ECTAB PO SCH ×2 (08:36→21:05)
[2022-12-13] MEDS: DULoxetine HCL 60 MG CAP PO SCH (08:36)
[2022-12-13] MEDS: GABAPENTIN 300 MG CAP PO SCH ×4 (08:37→21:04)
[2022-12-13] MEDS: ADVANCED PROBIOTIC 1250 MG CAPSULE PO SCH (08:37)
[2022-12-13] MEDS: lamoTRIgine 100 MG TAB PO SCH ×2 (08:37→21:04)
[2022-12-13] MEDS: LOSARTAN POTASSIUM 50 MG TAB PO SCH (08:38)
[2022-12-13] MEDS: METAXALONE 800 MG TABLET PO SCH ×4 (08:38→21:04)
[2022-12-13] MEDS: PANTOprazole 40 MG TAB PO SCH ×2 (08:39→21:05)
--- NOTE | 2022-12-13 16:35 | Hospitalist Progress Note ---
Date of Service December 13, 2022 Assessment & Plan (1) Closed fracture of right hip: (2) Fall: (3) Hypertension: (4) CKD (chronic kidney disease), stage III: (5) Hypothyroidism: (6) History of suicide attempt: Plan 67 y/o female presents s/p mechanical fall early this morning at [facility]. Imaging revealed closed fracture of right femoral head. Additional PMH includes: HTN, fibromyalgia, depression and anxiety. Creatinine and hemoglobin stable; no history of anesthesia challenges in the past. Closed fracture of right hip: S/P fall: Postoperative acute blood loss anemia --hip/pelvis x-ray: acute transcervical fracture of the right femur which demonstrates impaction with superolateral displacement of approximately 2.5 cm. No dislocation. Mild to moderate osteoarthritis of right hip. --S/P Right Bipolar Hip Cemented by on 12/04/22 Weightbearing as tolerated Plan to continue aspirin twice a day for 6 weeks Pain control, fall precautions, continue PT Continue Prevena VAC dressing for 7 days Needs follow-up with orthopedic surgery in 2 weeks after discharge Patient underwent right sided hip surgery on December 04, 2022(8 days ago) Patient is currently on oral medications for pain control. Trial to decrease amount of narcotics has been unsuccessful due to patient's aggressive behavior and unwillingness to try to lower narcotics. She is not on IV narcotics. She had bowel movement and is voiding without any difficulties. Her main concern is availability of narcotics after her discharge. patient was reassured that she will be prescribed 15 tablets of the current narcotic medication she is on the discharge. However, she continues to resist discharge. Patient is medically stable to be discharged UTI Urine culture grew 20,000k E.coli, pansensitive Completed Rocephin for 5 day course B/L superior ophthalmic vein dilatation Incidental finding on CT --CT head:No acute intracranial findings. Exam mildly compromised by motion artifact. No calvarial fracture identified. Interval development of abnormal dilatation of the bilateral superior ophthalmic veins since head CT of October 26, 2022. The etiology and clinical significance of this finding is uncertain and correlation with visual/eye symptoms is recommended -- Patient denies any blurry, double vision, ophthalmic pain Advised to follow-up with ophthalmology as outpatient Vitamin D Deficiency level of 8.1 Started on 50,000IU weekly x 8 weeks then will need 25mcg thereafter repeat labs in 8 weeks HTN: Continue losartan Monitor CKD stage III: Cr at baseline Hypothyroidism: Continue levothyroxine Fibromyalgia: Follows with Dr. Gonzales for ortho injections in right knee and right shoulder Uses Lidocaine patch, Gabapentin, and Metaxalone On chronic narcotics H/O Suicide Attempt: Depression and anxiety: Bipolar Disorder Continue duloxetine, also on Lamictal Psychiatry consulted GERD: Continue Protonix Code Status: DNR/DNI Disposition: Patient medically stable for discharge. Plan was for her to go to [facility] which she agreed upon. discharge order placed on December 11, 2022. Awaiting appeal process. Admission and Anticipated Discharge Date Admission Date: December 04, 2022 Subjective Patient seen and examined at bedside. She is sitting up on the bed; comfortable. Review of Systems Review of Systems: All systems reviewed & are unremarkable except as noted in Subjective Physical Exam Physical Exam: Physical Exam: Vitals signs as noted above General Appearance:Moderately built and nourished, Chronic ill appearing, no apparent distress Head: normocephalic, Atraumatic Eyes: normal inspection, EOMI Neck: supple, Trachea midline Respiratory/Chest: Normal breath sounds, CTA, No accessory muscle use Cardiovascular: S1, S2, No murmur Abdomen/GI:Soft, Non tender, Bowel sounds present Neurologic/Psych:AAOX3, grossly no focal neurological deficits Skin: normal color, warm Results & Data Results & Data Vital Signs (Past 12 Hours) Vital Signs Temp Pulse Resp BP Pulse Ox O2 Del Method 12/13/22 15:40 37.0 C 74 18 103/62 99 Room Air 12/13/22 08:02 36.5 C 68 16 115/73 98 Room Air Laboratory Results Laboratory Results WBC 6.60 K/ul (4.8-10.8) 12/08/22 06:02 RBC 2.92 M/uL (4.20-5.40) L 12/08/22 06:02 Hgb 9.7 g/dl (12.0-16.0) L 12/08/22 06:02 Hct 29.3 % (37.0-47.0) L 12/08/22 06:02 MCV 100.3 fL (80.0-100.0) H 12/08/22 06:02 MCH 33.2 pg (25.0-34.0) 12/08/22 06:02 MCHC 33.1 g/dL (32.0-36.0) 12/08/22 06:02 RDW Std Deviation 46.9 fL (36.4-46.3) H 12/08/22 06:02 RDW Coeff of [place] 12.7 % (11.5-14.5) 12/08/22 06:02 Plt Count 175 K/uL (130-400) 12/08/22 06:02 MPV 9.6 fL (9.4-12.4) 12/08/22 06:02 Immature Gran % (Auto) 0.4 % 12/05/22 07:03 Neut % (Auto) 80.8 % 12/05/22 07:03 Lymph % (Auto) 8.8 % 12/05/22 07:03 Hendry % (Auto) 9.7 % 12/05/22 07:03 Eos % (Auto) 0.1 % 12/05/22 07:03 Baso % (Auto) 0.2 % 12/05/22 07:03 Neut # (Auto) 6.92 K/uL (1.40-6.50) H 12/05/22 07:03 Lymph # (Auto) 0.75 K/uL (1.2-3.4) L 12/05/22 07:03 Hendry # (Auto) 0.83 K/uL (0.11-0.59) H 12/05/22 07:03 Eos # (Auto) 0.01 K/uL (0-0.50) 12/05/22 07:03 Baso # (Auto) 0.02 K/uL (0-0.2) 12/05/22 07:03 Immature Gran # (Auto) 0.03 K/uL (0.01-0.20) 12/05/22 07:03 PT 10.3 Seconds (9.0-12.0) 12/04/22 09:20 INR 0.9 (0.9-1.1) 12/04/22 09:20 Sodium 134 mmol/L (136-145) L 12/08/22 06:02 Potassium 4.0 mmol/L (3.5-5.1) 12/08/22 06:02 Chloride 106 mmol/L (98-107) 12/08/22 06:02 Carbon Dioxide 22 mmol/L (21-32) 12/08/22 06:02 Anion Gap 6 (3-11) 12/08/22 06:02 BUN 10 mg/dl (6-23) 12/08/22 06:02 Creatinine 0.74 mg/dl (0.6-1.2) 12/08/22 06:02 Est Cr Clr Drug Dosing 73.4 ml/min 12/08/22 06:02 Est GFR ( Amer) 96.5 ml/min 12/08/22 06:02 Est GFR (Non-Af Amer) 83.2 ml/min 12/08/22 06:02 BUN/Creatinine Ratio 13.5 (10-20) 12/08/22 06:02 Glucose 108 mg/dl (70-99(Fasting)) H 12/08/22 06:02 Calcium 9.3 mg/dl (8.6-10.3) 12/08/22 06:02 Magnesium 1.8 mg/dl (1.7-2.4) 12/06/22 07:47 Total Bilirubin 0.5 mg/dl (0.2-1.0) 12/05/22 07:03 AST 14 U/L (13-39) 12/05/22 07:03 ALT 9 U/L (7-52) 12/05/22 07:03 Alkaline Phosphatase 47 U/L (34-104) 12/05/22 07:03 Total Creatine Kinase 33 U/L (26-192) 12/04/22 09:20 Total Protein 5.0 gm/dl (6.0-8.3) L D 12/05/22 07:03 Albumin 3.0 gm/dl (3.4-5.0) L 12/05/22 07:03 Globulin 2.0 gm/dl (2.5-4.0) L 12/05/22 07:03 Albumin/Globulin Ratio 1.5 (0.9-2) 12/05/22 07:03 25-OH Vitamin D Total 8.1 ng/ml (30-100) L 12/05/22 07:03 Procalcitonin 0.08 ng/ml (0-0.5) 12/05/22 07:03 Urine Color Yellow 12/05/22 02:00 Urine Appearance Turbid (Clear) A 12/05/22 02:00 Urine pH 8.0 (4.5-7.5) H 12/05/22 02:00 Ur Specific [place] 1.014 (1.000-1.030) 12/05/22 02:00 Urine Protein Trace (Negative) H 12/05/22 02:00 Urine Glucose (UA) Negative (Negative) 12/05/22 02:00 Urine Ketones Negative (Negative) 12/05/22 02:00 Urine Blood 1+ (Negative) H 12/05/22 02:00 Urine Nitrite Negative (Negative) 12/05/22 02:00 Urine Bilirubin Negative (Negative) 12/05/22 02:00 Urine Urobilinogen Negative (Negative) 12/05/22 02:00 Ur Leukocyte Esterase 3+ (Negative) H 12/05/22 02:00 Urine WBC (Auto) >30 /hpf (0-5) H 12/05/22 02:00 Urine RBC (Auto) 0-4 /hpf (0-4) 12/05/22 02:00 U Hyaline Cast (Auto) 1-5 /lpf (0-5) 12/05/22 02:00 U Epithel Cells (Auto) 20-30 /lpf (0-5) H 12/05/22 02:00 Urine Bacteria (Auto) Negative (Negative) 12/05/22 02:00 SARS-CoV-2, RNA, NAAT NEGATIVE (NEGATIVE) 12/04/22 09:34 Blood Type A Positive 12/04/22 09:23 Antibody Screen NEGATIVE 12/04/22 09:[address] 12/04/22 09:14 CT OF THE CERVICAL SPINE WITHOUT CONTRAST CLINICAL HISTORY: fall COMPARISON STUDY: Cervical spine CT October 26, 2022. TECHNIQUE: Helical axial images of the cervical spine were obtained without IV contrast. Sagittal and coronal reconstructions were viewed. Automated exposure control was utilized for the study. A dose lowering technique was utilized adhering to the principles of ALARA. FINDINGS: Reversal of the cervical lordosis with anterolisthesis of C4 on C5 is again noted. There is severe multilevel facet arthrosis and moderate to severe degenerative disc disease within the cervical spine. Extensive degenerative changes at the C1-C2 articulation are again noted. No acute cervical spine fracture is identified. There is no prevertebral edema. IMPRESSION: 1. No acute cervical spine fracture or subluxation. 2. Severe multilevel degenerative changes within the cervical spine. ACT 112: Negative or not required by law. Electronically signed by: Juan Canseco M.D. 12/04/2022 10:13 AM Chest X-Ray 12/04/22 09:14 SUPINE PORTABLE CHEST RADIOGRAPH CLINICAL HISTORY: fall COMPARISON STUDY: Chest radiograph October 26, 2022. FINDINGS: No pneumothorax is identified on supine exam. There are no airspace opacities. Pulmonary vascularity is normal. Postoperative findings within the thoracolumbar spine are partially imaged. IMPRESSION: No acute cardiopulmonary findings. ACT 112: Negative or not required by law. Electronically signed by: Juan Canseco M.D. 12/04/2022 11:[address] 12/04/22 09:14 CT OF THE HEAD WITHOUT CONTRAST CLINICAL HISTORY: fall, forehead contusion R COMPARISON STUDY: Head CT October 26, 2022. TECHNIQUE: Helical axial images of the head were obtained without IV contrast. Automated exposure control was utilized for the study. A dose lowering technique was utilized adhering to the principles of ALARA. FINDINGS: This exam is mildly compromised by motion artifact. No acute intracranial hemorrhage, midline shift or mass effect is present. Ventricular system is normal. Basal cisterns are patent. There are no extra-axial collections. White matter hypodensity suggests small vessel disease. No acute calvarial fracture is noted. There is dilatation of the bilateral superior ophthalmic veins, a new finding since CT of October 26, 2022. IMPRESSION: 1. No acute intracranial findings. Exam mildly compromised by motion artifact. 2. No calvarial fracture identified. 3. Interval development of abnormal dilatation of the bilateral superior op hthalmic veins since head CT of October 26, 2022. The etiology and clinical significance of this finding is uncertain and correlation with visual/eye symptoms is recommended. Findings discussed with Dr. Bills at time of dictation. ACT 112: Negative or not required by law. Electronically signed by: Juan Canseco M.D. 12/04/2022 10:07 AM Hip/Pelvis X-Ray 12/04/22 09:14 XR hip RT 2V w pelvis HISTORY: 67 years-old Female fall, hip pain acute right hip pain status post fall COMPARISON: 10/26/2022 TECHNIQUE: AP view the pelvis with 2 views of the right hip FINDINGS: Left hip arthroplasty. Spinal fusion hardware. Unremarkable appearance of the left hip arthroplasty. Demineralized appearance of the bones. There is an acute transcervical fracture of the right femur which demonstrates impaction with superolateral displacement of approximately 2.5 cm. No dislocation. Mild to moderate osteoarthritis of right hip. Lateral ankle soft tissue swelling. No additional acute fracture or dislocation. IMPRESSION: Acute impacted and displaced transcervical right femoral fracture. ACT 112: Negative or not required by law. The above report was generated using voice recognition software. It may contain grammatical, syntax or spelling errors. Electronically signed by: Carlitos Joy M.D. 12/04/2022 11:00 AM Hip X-Ray 12/04/22 16:19 XR hip RT min 2V CLINICAL HISTORY: Post-Operative implant position COMPARISON: Pelvis and right hip radiographs performed earlier today. FINDINGS: Alignment of the right hip arthroplasty is anatomic. There is no periprosthetic fracture or unexpected radiopaque foreign body. There are skin rogers. Postoperative findings within the spine are incidentally noted. IMPRESSION: Expected findings following right hip arthroplasty. ACT 112: Negative or not required by law. Electronically signed by: Juan Canseco M.D. 12/04/2022 5:30 PM (1) Closed fracture of right hip Encounter type: initial encounter Qualified Code(s): S72.001A - Fracture of unspecified part of neck of right femur, initial encounter for closed fracture (2) Fall Encounter type: initial encounter Qualified Code(s): W19.XXXA - Unspecified fall, initial encounter
[2022-12-13] MEDS: DOCUSATE SODIUM/SENNA 50/8.6MG TAB PO SCH (21:01)
[2022-12-13] MEDS: TOPIRAMATE 100 MG TAB PO SCH (21:05)
[2022-12-13] MEDS: DICLOFENAC SOD 1% GEL 100 GM TUBE EXT PRN (23:41)
[2022-12-14] MEDS: MoRPHine SULFATE IR 15 MG TAB (IMMEDIATE RELEASE) PO PRN ×6 (01:03→21:36)
[2022-12-14] MEDS: ACETAMINOPHEN 325 MG TAB PO SCH ×3 (03:14→18:29)
[2022-12-14] MEDS: LEVOTHYROXINE SODIUM 50 MCG TABLET PO SCH (06:04)
[2022-12-14] MEDS: DULoxetine HCL 60 MG CAP PO SCH (09:01)
[2022-12-14] MEDS: FERROUS SULFATE 325 MG TAB PO SCH ×2 (09:01→16:50)
[2022-12-14] MEDS: LOSARTAN POTASSIUM 50 MG TAB PO SCH (09:01)
[2022-12-14] MEDS: ASPIRIN 81 MG ECTAB PO SCH ×2 (09:02→21:39)
[2022-12-14] MEDS: ADVANCED PROBIOTIC 1250 MG CAPSULE PO SCH (09:02)
[2022-12-14] MEDS: GABAPENTIN 300 MG CAP PO SCH ×4 (09:03→21:39)
[2022-12-14] MEDS: METAXALONE 800 MG TABLET PO SCH ×4 (09:03→21:39)
[2022-12-14] MEDS: PANTOprazole 40 MG TAB PO SCH ×2 (09:03→21:39)
[2022-12-14] MEDS: lamoTRIgine 100 MG TAB PO SCH ×2 (09:04→21:39)
--- NOTE | 2022-12-14 15:29 | Hospitalist Progress Note ---
Date of Service December 14, 2022 Assessment & Plan (1) Closed fracture of right hip: (2) Fall: (3) Hypertension: (4) CKD (chronic kidney disease), stage III: (5) Hypothyroidism: (6) History of suicide attempt: Plan 67 y/o female presents s/p mechanical fall early this morning at [facility]. Imaging revealed closed fracture of right femoral head. Additional PMH includes: HTN, fibromyalgia, depression and anxiety. Creatinine and hemoglobin stable; no history of anesthesia challenges in the past. Closed fracture of right hip: S/P fall: Postoperative acute blood loss anemia --hip/pelvis x-ray: acute transcervical fracture of the right femur which demonstrates impaction with superolateral displacement of approximately 2.5 cm. No dislocation. Mild to moderate osteoarthritis of right hip. --S/P Right Bipolar Hip Cemented by on 12/04/22 Weightbearing as tolerated Plan to continue aspirin twice a day for 6 weeks Pain control, fall precautions, continue PT Continue Prevena VAC dressing for 7 days Needs follow-up with orthopedic surgery in 2 weeks after discharge Patient underwent right sided hip surgery on December 04, 2022 Orthopedic cleared her to be discharged as well. Patient is currently on oral medications for pain control. Trial to decrease amount of narcotics has been unsuccessful due to patient's aggressive behavior and unwillingness to try to lower narcotics. She is not on IV narcotics. She had bowel movement and is voiding without any difficulties. Her main concern is availability of narcotics after her discharge. patient was reassured that she will be prescribed 15 tablets of the current narcotic medication she is on the discharge. However, she continues to resist discharge. Patient is medically stable to be discharged. UTI Urine culture grew 20,000k E.coli, pansensitive Completed Rocephin for 5 day course B/L superior ophthalmic vein dilatation Incidental finding on CT --CT head:No acute intracranial findings. Exam mildly compromised by motion artifact. No calvarial fracture identified. Interval development of abnormal dilatation of the bilateral superior ophthalmic veins since head CT of October 26, 2022. The etiology and clinical significance of this finding is uncertain and correlation with visual/eye symptoms is recommended -- Patient denies any blurry, double vision, ophthalmic pain Advised to follow-up with ophthalmology as outpatient Vitamin D Deficiency level of 8.1 Started on 50,000IU weekly x 8 weeks then will need 25mcg thereafter repeat labs in 8 weeks HTN: Continue losartan Monitor CKD stage III: Cr at baseline Hypothyroidism: Continue levothyroxine Fibromyalgia: Follows with Dr. Gonzales for ortho injections in right knee and right shoulder Uses Lidocaine patch, Gabapentin, and Metaxalone On chronic narcotics H/O Suicide Attempt: Depression and anxiety: Bipolar Disorder Continue duloxetine, also on Lamictal GERD: Continue Protonix Code Status: DNR/DNI Disposition: Patient medically stable for discharge. Plan was for her to go to [facility] which she agreed upon. discharge order placed on December 11, 2022. Awaiting appeal process. On the request of the patient, bedside commode prescription was placed on the chart. Discussed with case management. CM To follow-up tomorrow. Time spent evaluating patient, direct bedside care, chart review, placing orders, interpretation of diagnostic studies, discussion with consultants, patient, and family members, as well as other required patient management activities is 60 minutes. Please note the above document was generated using voice recognition software. It may contain grammatical, syntax or spelling errors. Any formal questions or concerns about the content, text or information contained within the body of this dictation should be directly addressed to the provider for clarification Admission and Anticipated Discharge Date Admission Date: December 04, 2022 Subjective Patient seen and examined at bedside. She reports that she was able to work well with physical therapy. She had a bowel movement and is voiding well. Still continues to require morphine every 4 hours. Review of Systems Review of Systems: All systems reviewed & are unremarkable except as noted in Subjective Physical Exam Physical Exam: Physical Exam: Vitals signs as noted above General Appearance:Moderately built and nourished, Chronic ill appearing, no apparent distress Head: normocephalic, Atraumatic Eyes: normal inspection, EOMI Neck: supple, Trachea midline Respiratory/Chest: Normal breath sounds, CTA, No accessory muscle use Cardiovascular: S1, S2, No murmur Abdomen/GI:Soft, Non tender, Bowel sounds present Neurologic/Psych:AAOX3, grossly no focal neurological deficits Skin: normal color, warm Results & Data Results & Data Vital Signs (Past 12 Hours) Vital Signs Temp Pulse Resp BP Pulse Ox O2 Del Method 12/14/22 08:59 37 C 75 17 119/81 97 Room Air Laboratory Results Laboratory Results WBC 6.60 K/ul (4.8-10.8) 12/08/22 06:02 RBC 2.92 M/uL (4.20-5.40) L 12/08/22 06:02 Hgb 9.7 g/dl (12.0-16.0) L 12/08/22 06:02 Hct 29.3 % (37.0-47.0) L 12/08/22 06:02 MCV 100.3 fL (80.0-100.0) H 12/08/22 06:02 MCH 33.2 pg (25.0-34.0) 12/08/22 06:02 MCHC 33.1 g/dL (32.0-36.0) 12/08/22 06:02 RDW Std Deviation 46.9 fL (36.4-46.3) H 12/08/22 06:02 RDW Coeff of [place] 12.7 % (11.5-14.5) 12/08/22 06:02 Plt Count 175 K/uL (130-400) 12/08/22 06:02 MPV 9.6 fL (9.4-12.4) 12/08/22 06:02 Immature Gran % (Auto) 0.4 % 12/05/22 07:03 Neut % (Auto) 80.8 % 12/05/22 07:03 Lymph % (Auto) 8.8 % 12/05/22 07:03 [place] % (Auto) 9.7 % 12/05/22 07:03 Eos % (Auto) 0.1 % 12/05/22 07:03 Baso % (Auto) 0.2 % 12/05/22 07:03 Neut # (Auto) 6.92 K/uL (1.40-6.50) H 12/05/22 07:03 Lymph # (Auto) 0.75 K/uL (1.2-3.4) L 12/05/22 07:03 [place] # (Auto) 0.83 K/uL (0.11-0.59) H 12/05/22 07:03 Eos # (Auto) 0.01 K/uL (0-0.50) 12/05/22 07:03 Baso # (Auto) 0.02 K/uL (0-0.2) 12/05/22 07:03 Immature Gran # (Auto) 0.03 K/uL (0.01-0.20) 12/05/22 07:03 PT 10.3 Seconds (9.0-12.0) 12/04/22 09:20 INR 0.9 (0.9-1.1) 12/04/22 09:20 Sodium 134 mmol/L (136-145) L 12/08/22 06:02 Potassium 4.0 mmol/L (3.5-5.1) 12/08/22 06:02 Chloride 106 mmol/L (98-107) 12/08/22 06:02 Carbon Dioxide 22 mmol/L (21-32) 12/08/22 06:02 Anion Gap 6 (3-11) 12/08/22 06:02 BUN 10 mg/dl (6-23) 12/08/22 06:02 Creatinine 0.74 mg/dl (0.6-1.2) 12/08/22 06:02 Est Cr Clr Drug Dosing 73.4 ml/min 12/08/22 06:02 Est GFR ( Amer) 96.5 ml/min 12/08/22 06:02 Est GFR (Non-Af Amer) 83.2 ml/min 12/08/22 06:02 BUN/Creatinine Ratio 13.5 (10-20) 12/08/22 06:02 Glucose 108 mg/dl (70-99(Fasting)) H 12/08/22 06:02 Calcium 9.3 mg/dl (8.6-10.3) 12/08/22 06:02 Magnesium 1.8 mg/dl (1.7-2.4) 12/06/22 07:47 Total Bilirubin 0.5 mg/dl (0.2-1.0) 12/05/22 07:03 AST 14 U/L (13-39) 12/05/22 07:03 ALT 9 U/L (7-52) 12/05/22 07:03 Alkaline Phosphatase 47 U/L (34-104) 12/05/22 07:03 Total Creatine Kinase 33 U/L (26-192) 12/04/22 09:20 Total Protein 5.0 gm/dl (6.0-8.3) L D 12/05/22 07:03 Albumin 3.0 gm/dl (3.4-5.0) L 12/05/22 07:03 Globulin 2.0 gm/dl (2.5-4.0) L 12/05/22 07:03 Albumin/Globulin Ratio 1.5 (0.9-2) 12/05/22 07:03 25-OH Vitamin D Total 8.1 ng/ml (30-100) L 12/05/22 07:03 Procalcitonin 0.08 ng/ml (0-0.5) 12/05/22 07:03 Urine Color Yellow 12/05/22 02:00 Urine Appearance Turbid (Clear) A 12/05/22 02:00 Urine pH 8.0 (4.5-7.5) H 12/05/22 02:00 Ur Specific [place] 1.014 (1.000-1.030) 12/05/22 02:00 Urine Protein Trace (Negative) H 12/05/22 02:00 Urine Glucose (UA) Negative (Negative) 12/05/22 02:00 Urine Ketones Negative (Negative) 12/05/22 02:00 Urine Blood 1+ (Negative) H 12/05/22 02:00 Urine Nitrite Negative (Negative) 12/05/22 02:00 Urine Bilirubin Negative (Negative) 12/05/22 02:00 Urine Urobilinogen Negative (Negative) 12/05/22 02:00 Ur Leukocyte Esterase 3+ (Negative) H 12/05/22 02:00 Urine WBC (Auto) >30 /hpf (0-5) H 12/05/22 02:00 Urine RBC (Auto) 0-4 /hpf (0-4) 12/05/22 02:00 U Hyaline Cast (Auto) 1-5 /lpf (0-5) 12/05/22 02:00 U Epithel Cells (Auto) 20-30 /lpf (0-5) H 12/05/22 02:00 Urine Bacteria (Auto) Negative (Negative) 12/05/22 02:00 SARS-CoV-2, RNA, NAAT NEGATIVE (NEGATIVE) 12/04/22 09:34 Blood Type A Positive 12/04/22 09:23 Antibody Screen NEGATIVE 12/04/22 09:[address] 12/04/22 09:14 CT OF THE CERVICAL SPINE WITHOUT CONTRAST CLINICAL HISTORY: fall COMPARISON STUDY: Cervical spine CT October 26, 2022. TECHNIQUE: Helical axial images of the cervical spine were obtained without IV contrast. Sagittal and coronal reconstructions were viewed. Automated exposure control was utilized for the study. A dose lowering technique was utilized adhering to the principles of ALARA. FINDINGS: Reversal of the cervical lordosis with anterolisthesis of C4 on C5 is again noted. There is severe multilevel facet arthrosis and moderate to severe degenerative disc disease within the cervical spine. Extensive degenerative changes at the C1-C2 articulation are again noted. No acute cervical spine fracture is identified. There is no prevertebral edema. IMPRESSION: 1. No acute cervical spine fracture or subluxation. 2. Severe multilevel degenerative changes within the cervical spine. ACT 112: Negative or not required by law. Electronically signed by: Juan Canseco M.D. 12/04/2022 10:13 AM Chest X-Ray 12/04/22 09:14 SUPINE PORTABLE CHEST RADIOGRAPH CLINICAL HISTORY: fall COMPARISON STUDY: Chest radiograph October 26, 2022. FINDINGS: No pneumothorax is identified on supine exam. There are no airspace opacities. Pulmonary vascularity is normal. Postoperative findings within the thoracolumbar spine are partially imaged. IMPRESSION: No acute cardiopulmonary findings. ACT 112: Negative or not required by law. Electronically signed by: Juan Canseco M.D. 12/04/2022 11:[address] 12/04/22 09:14 CT OF THE HEAD WITHOUT CONTRAST CLINICAL HISTORY: fall, forehead contusion R COMPARISON STUDY: Head CT October 26, 2022. TECHNIQUE: Helical axial images of the head were obtained without IV contrast. Automated exposure control was utilized for the study. A dose lowering technique was utilized adhering to the principles of ALARA. FINDINGS: This exam is mildly compromised by motion artifact. No acute intracranial hemorrhage, midline shift or mass effect is present. Ventricular system is normal. Basal cisterns are patent. There are no extra-axial collections. White matter hypodensity suggests small vessel disease. No acute calvarial fracture is noted. There is dilatation of the bilateral superior ophthalmic veins, a new finding since CT of October 26, 2022. IMPRESSION: 1. No acute intracranial findings. Exam mildly compromised by motion artifact. 2. No calvarial fracture identified. 3. Interval development of abnormal dilatation of the bilateral superior ophthalmic veins since head CT of October 26, 2022. The etiology and clinical significance of this finding is uncertain and correlation with visual/eye symptoms is recommended. Findings discussed with Dr. Bills at time of dictation. ACT 112: Negative or not required by law. Electronically signed by: Juan Canseco M.D. 12/04/2022 10:07 AM Hip/Pelvis X-Ray 12/04/22 09:14 XR hip RT 2V w pelvis HISTORY: 67 years-old Female fall, hip pain acute right hip pain status post fall COMPARISON: 10/26/2022 TECHNIQUE: AP view the pelvis with 2 views of the right hip FINDINGS: Left hip arthroplasty. Spinal fusion hardware. Unremarkable appearance of the left hip arthroplasty. Demineralized appearance of the bones. There is an acute transcervical fracture of the right femur which demonstrates impaction with superolateral displacement of approximately 2.5 cm. No dislocation. Mild to moderate osteoarthritis of right hip. Lateral ankle soft tissue swelling. No additional acute fracture or dislocation. IMPRESSION: Acute impacted and displaced transcervical right femoral fracture. ACT 112: Negative or not required by law. The above report was generated using voice recognition software. It may contain grammatical, syntax or spelling errors. Electronically signed by: Carlitos Joy M.D. 12/04/2022 11:00 AM Hip X-Ray 12/04/22 16:19 XR hip RT min 2V CLINICAL HISTORY: Post-Operative implant position COMPARISON: Pelvis and right hip radiographs performed earlier today. FINDINGS: Alignment of the right hip arthroplasty is anatomic. There is no periprosthetic fracture or unexpected radiopaque foreign body. There are skin rogers. Postoperative findings within the spine are incidentally noted. IMPRESSION: Expected findings following right hip arthroplasty. ACT 112: Negative or not required by law. Electronically signed by: Juan Canseco M.D. 12/04/2022 5:30 PM (1) Closed fracture of right hip Encounter type: initial encounter Qualified Code(s): S72.001A - Fracture of unspecified part of neck of right femur, initial encounter for closed fracture (2) Fall Encounter type: initial encounter Qualified Code(s): W19.XXXA - Unspecified fall, initial encounter
[2022-12-14] MEDS: ERGOCALCIFEROL 50,000 UNITS 1250 MCG CAP PO SCH (16:48)
[2022-12-14] MEDS: TOPIRAMATE 100 MG TAB PO SCH (21:39)
[2022-12-14] MEDS: DOCUSATE SODIUM/SENNA 50/8.6MG TAB PO SCH (21:40)
[2022-12-15] MEDS: MoRPHine SULFATE IR 15 MG TAB (IMMEDIATE RELEASE) PO PRN ×4 (01:29→13:35)
[2022-12-15] MEDS: ACETAMINOPHEN 325 MG TAB PO SCH ×2 (03:45→11:45)
[2022-12-15] MEDS: LEVOTHYROXINE SODIUM 50 MCG TABLET PO SCH (05:28)
[2022-12-15] MEDS: METAXALONE 800 MG TABLET PO SCH ×2 (08:04→12:42)
[2022-12-15] MEDS: GABAPENTIN 300 MG CAP PO SCH ×2 (08:04→12:43)
[2022-12-15] MEDS: ASPIRIN 81 MG ECTAB PO SCH (08:04)
[2022-12-15] MEDS: lamoTRIgine 100 MG TAB PO SCH (08:05)
[2022-12-15] MEDS: LOSARTAN POTASSIUM 50 MG TAB PO SCH (08:06)
[2022-12-15] MEDS: ADVANCED PROBIOTIC 1250 MG CAPSULE PO SCH (08:06)
[2022-12-15] MEDS: FERROUS SULFATE 325 MG TAB PO SCH (08:07)
[2022-12-15] MEDS: PANTOprazole 40 MG TAB PO SCH (08:07)
[2022-12-15] MEDS: DULoxetine HCL 60 MG CAP PO SCH (08:07)
--- NOTE | 2022-12-15 11:50 | Progress Notes ---
SUBJECTIVE: A 67-year-old female with multiple medical comorbidities, now 11 days out from a right c emented bipolar hip arthroplasty for fracture. She is doing reasonably well. She says she is gettin g better every day. Pain is decreasing. Have been just waiting for placement. No new complaints. OBJECTIVE: VITAL SIGNS: Temperature is 37. Vital signs are stable. GENERAL: Shows a pleasant middle-aged female. She is lying in bed, looks quite comfortable. EXTREMITIES: Examination of the right leg reveals the dressing to be clean, dry and intact. Leg chavo gths are equal. Minimal swelling. No drainage. She is neurologically intact. She can dorsiflex an d plantarflex her foot appropriately. Moves her hip quite well without much pain. ASSESSMENT: A 67-year-old female 11 days out from a right cemented bipolar hip arthroplasty for frac ture. She is doing well. She has got multiple medical comorbidities and psychiatric issues, which _ ____ her recovery. PLAN: 1. DVT prophylaxis includes thigh-high TEDs, SCDs, and aspirin twice a day for a total of 6 weeks po stop. 2. PT/OT. She can weight bear as tolerated. Does need to obey hip precautions for the first 6 week s. 3. Pain control, seems to be doing okay with current pain regimen. 4. Medical management as per the medicine service. 5. Disposition. She is orthopedically okay for discharge any time medically stable. Appears that j ust waiting for placement. Any orthopedic questions can be directed to me at . Job ID: [id number]
--- NOTE | 2022-12-15 15:50 | Discharge Summary ---
Date of Service December 15, 2022 Admission HPI Per Admitting Provider Ms. Odom is a 67-year-old female that presented to the ED from [facility] after she experienced a slip and mechanical fall on her right hip. SHe woke in the middle of the night (time unknown) and she lost control of her bladder, and slipped on urine and fell. She trie dto stop her fall and she hit her head above her right eye. Patient does not take any known anticoagulation medications. She saw Dr. Gonzales for steroid injections in her right knee and left shoulder. At baseline, she has been using a cane and walker interchangeable for assistive device due to arthritic pain but was not using any of them last night. She has recently noted to have increased bilateral leg swelling but denies any SOB. Hip and pelvic x-ray indicated an acute transcervical fracture of the right femur which demonstrates impaction with superolateral displacement of approximately 2.5 cm. No dislocation. Mild to moderate osteoarthritis of right hip. Lateral ankle soft tissue swelling. Patient recently had left hip replacement performed by Dr. Gonzales more than a few years ago. 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 This is reportedly new from last CT 10/26/22. Has started using alcohol as masking pain. She reports drinking beer and liquor, vodka, when it flares. She feels it helps her pain. She says it depends on the weather and pain. Her last drink was more than a few days ago. Additional past medical history includes bipolar disorder, history of suicide attempt, anxiety, fibromyalgia, HTN, hypothyroidism, OA of both knees and CKD stage III. Additional imaging includes chest x-ray which was negative for acute pulmonary disease. Cervical spine CT negative outside of degenerative changes. Patient denies KELLY, double or blurry vision, dizziness, chest pain, SOB, abdominal changes, appetite changes, N/V/D, recent illness. She has stated that her appetite is more stimulated; likely related to steroids. She usually eats one meal per day at baseline. Pt lying in flat in her hospital bed. Initially, she was no in distress, but throughout our conversation she became more tearful with increased pain. Patient AAOx4 decreased motion in RLE; palpable pedal pulses. Patient reports having a decision maker that she is in the process of making her POA: "Brandon". No official paperwork completed as of yet. Patient will be admitted for further evaluation and management. Please see A/P for further details. Admission Exam Per Admitting Provider Neuro: AAOx4, PERRLA, no aphagia, memory changes, CNII-XII grossly intact HEENT: head normocephalic, moist mucus membranes CV: S1/S2, (-) M/G/R, (-) edema, cap refill < 3 seconds. (+) pedal pulses. Bilateral LE edema Resp: Lungs CTA in all carney. On RA GI: Abdomen S/NT/ND, Ax4 bowel sounds, (-) CVA tenderness Musculoskeletal: 5/5 B/L UE strength, 5/5 B/L LE strength. Uses can at baseline Skin: (-) rashes , (-) erythema.(+) ecchymosis above right orbital region Psych: euthymic mood Principal Diagnosis Mechanical fall Closed fracture of the right hip S/P Right Bipolar Hip Cemented by on 12/04/22 UTI Vitamin D deficiency Discharge Exam Physical Exam: Vitals signs as noted above General Appearance:Moderately built and nourished, Chronic ill appearing, no apparent distress Head: normocephalic, Atraumatic Eyes: normal inspection, EOMI Neck: supple, Trachea midline Respiratory/Chest: Normal breath sounds, CTA, No accessory muscle use Cardiovascular: S1, S2, No murmur Abdomen/GI:Soft, Non tender, Bowel sounds present Neurologic/Psych:AAOX3, grossly no focal neurological deficits Skin: normal color, warm Discharge Data Allergies Allergy/AdvReac Type Severity Reaction Status Date / Time cyclobenzaprine Allergy Intermediate ITCHY Verified 10/27/22 12:43 RASH, WT GAIN, DEPRESSION fentanyl Allergy Intermediate MAJOR FEET Verified 10/27/22 12:43 SWELLING ketorolac Allergy Unknown PER GMG Verified 10/27/22 12:43 oxcarbazepine Allergy Unknown UNKNOWN - Verified 10/27/22 12:43 PT DOESN'T REMEMBER clonazepam AdvReac Intermediate NAUSEA/VOMI Verified 10/27/22 12:43 TING hydrocodone AdvReac Intermediate PT DOESN'T Verified 10/27/22 12:43 LIKE WITHDRAWAL SYMPTOMS oxycodone AdvReac Intermediate PT DOESN'T Verified 10/27/22 12:43 LIKE WITHDRAWAL SYMPTOMS risperidone AdvReac Intermediate exhaustion Verified 10/27/22 12:43 Consultations 12/04/22 11:14 ED Decision to Admit Stat 12/04/22 12:17 Consult Orthopedic Surgery Routine 12/05/22 10:57 Consult Pain Management Routine 12/06/22 07:46 Consult Behavioral Health Liaison Routine Procedures Performed Operation Date: 12/04/22 14:05 Actual Procedures p Right Bipolar Hip Cemented(Right) - Giovanni Gonzales MD Ordered Studies 12/04/22 09:14 CT cervical spine wo con Stat CT head/brain wo con Stat Hospital Course (1) Closed fracture of right hip: (2) Fall: (3) Hypertension: (4) CKD (chronic kidney disease), stage III: (5) Hypothyroidism: (6) History of suicide attempt: Plan 67 y/o female presents s/p mechanical fall early this morning at [facility]. Imaging revealed closed fracture of right femoral head. Patient underwent right hip surgery by orthopedics on December 04, 2022. After the surgery, patient was started on pain medication, DVT prophylaxis with aspirin, PT and OT Patient was also started on vitamin D supplement for vitamin D deficiency. Patient required [id number] narcotics for pain control for several days postoperatively. PT OT evaluation was done; patient showed progressive improvement throughout the hospitalization Orthopedic cleared for her for discharge on december 09, 2022. Patient was stable for discharge on December 11, 2022. Patient appealed the discharge which was denied. Patient was then discharged on December 15, 2022. Patient to follow-up with PCP and orthopedics. Please note the above document was generated using voice recognition software. It may contain grammatical, syntax or spelling errors. Any formal questions or concerns about the content, text or information contained within the body of this dictation should be directly addressed to the provider for clarification Total Time Total Time Spent Total Time Spent (In Minutes): 60 Total Time Includes: Examination of the Patient, Discharge Planning, Medication Reconciliation, Communication With Other Providers and Other Discharge Plan Discharge Items Patient Disposition: Personal Group Home Reason For Visit: RIGHT FEMUR FRACTURE Discharge Diagnosis: Right Hip Replacement for fracture Activity: Per Instructions section Activity Comment: Follow/Obey hip precautions at all times. Weightbearing: Full weightbearing Weightbearing Comment: Weightbear as tolerated obeying hip precautions at all timess. Non-emergency contact: Primary Care Provider Call non-emergency contact if: you have any medication questions, your symptoms worsen, your pain is concerning for you and you have a fever Follow-up/Referrals: Giovanni Gonzales MD [Physician] - 12/21/22 11:00 am (Orthopedic follow-up 2-3 weeks from surgery date.) Arpit Osman MD [Primary Care Provider] - 12/18/22 11:00 am (Date & Time 12/18/2022 11:00 AM Provider Arpit Osman III, MD Department [facility] ) Diet: Regular Addtl Attending Provider Instructions: MEDICATION CHANGES: Started on vitamin D supplementation - 50,000u weekly x 8 weeks, then will need 25mcg thereafter. Morphine 15mg PO Q4H as needed for severe pain post-operatively. Continue other medications as prescribed. Aspirin twice daily twice daily for 30 days more. SUMMARY OF TEST RESULTS: You were admitted with closed fracture of right hip after fall Underwent Right Bipolar Hip Cemented by on 12/04/22 Weightbearing as tolerated with fall precautions Plan to continue aspirin twice a day for 6 weeks Continue Prevena VAC dressing for 7 days Completed antibiotic treatment for UTI during admission Please follow-up with orthopedic surgery in 2 weeks after discharge PENDING TEST RESULTS: None RECOMMENDATIONS FOR FOLLOW-UP: Follow up with PCP and orthopedic surgery as scheduled. Repeat vitamin D lab work in 8 weeks. Continue medication regimen as scheduled aside from changes noted above. Bilateral superior ophthalmic vein dilatation found incidentally on CT head imaging. Advise ophthalmology f/u as outpatient OTHER INSTRUCTIONS: Seek medical attention if you have: * temperature above 101 * chest pain or trouble breathing * abdominal pain, nausea, vomiting * diarrhea, dark stools or bloody stools * any unanswered questions or concerns Call 911 if symptoms are severe. Please take good care of yourself. Pending Studies at Discharge: No Stand-Alone Forms: My [employer], Smoking Cessation Skilled Items Patient informed of condition?: Yes DNR: Yes Discharge Level of Care: Other Communicable Disease: No Discharge Prognosis: Stable Lines: None Urinary Catheter: Yes Medications and DC Order Prescriptions: New ergocalciferol (vitamin D2) 1,250 mcg (50,000 unit) Capsule 50,000 unit PO Q7D Qty: 8 0RF Rx Instructions: started on 50,000IU weekly x 8 weeks then will need 25mcg thereafter acetaminophen 325 mg Tablet 650 mg PO Q8H PRN (Reason: mild pain) Qty: 30 0RF topiramate 100 mg Tablet 200 mg PO HS Qty: 30 0RF aspirin 81 mg Tablet,Delayed Release (Dr/Ec) 81 mg PO BID 30 Days Qty: 60 0RF morphine 15 mg Tablet 15 mg PO Q4H PRN (Reason: severe pain (scale score 7-10)) Qty: 20 0RF diclofenac sodium [Voltaren Arthritis Pain] 1 % Gel 2 g EXT Q12 PRN (Reason: pain) Qty: 100 0RF Continued losartan 50 mg tablet 50 mg PO QAM prednisone 5 mg Tablet 5 mg PO QAM levothyroxine [Synthroid] 50 mcg Tablet 50 mcg PO DAILYBB Qty: 1 0RF ferrous sulfate 325 mg (65 mg iron) Tablet,Delayed Release (Dr/Ec) 325 mg PO BIDM Qty: 1 0RF acetaminophen [Tylenol Extra Strength] 500 mg Tablet 1,000 mg PO Q6H MDD 6 tablets per day PRN (Reason: Pain) Rx Instructions: PER PT "USUALLY 3 X DAILY". ondansetron 8 mg tablet,disintegrating 8 mg translingual Q8H PRN (Reason: Nausea) omeprazole 20 mg capsule,delayed release(DR/EC) 20 mg PO BID metaxalone 800 mg tablet 800 mg PO QID lamotrigine 150 mg tablet 150 mg PO BID Qty: 60 0RF gabapentin 300 mg capsule 300 mg PO QID 30 Days Qty: 120 0RF duloxetine 60 mg Capsule,Delayed Release(Dr/Ec) 120 mg PO QAM Qty: 60 0RF acyclovir [Zovirax] 5 % Ointment 1 applic TOPICAL 6XD PRN (Reason: LIP SORES SOON SYMPTOMS START.) lidocaine 5 % Adhesive Patch,Medicated 1 patch TOPICAL DAILY PRN (Reason: Pain) Rx Instructions: leave on most painful area for up to 12 hrs polyethylene glycol 3350 [Miralax] 17 gram/dose Powder 17 g PO DAILY PRN (Reason: Constipation) albuterol sulfate 90 mcg/actuation Hfa Aerosol Inhaler 2 puff INHALATION QID PRN (Reason: Shortness Of Breath Or Wheezing) fluticasone propionate 50 mcg/actuation [place],Suspension 2 spray INTRANASAL DAILY PRN (Reason: Congestion) Rx Instructions: administer into each nostril diclofenac sodium 1 % Gel 2 g TOPICAL QID PRN (Reason: Pain) topiramate 100 mg tablet 200 mg PO HS Discontinued oxycodone 5 mg tablet 2.5 mg PO Q8H MDD 1.5 TABS/DAILY PRN (Reason: pain) oxycodone 5 mg tablet See Rx Instructions .ROUTE .COMPLEX PRN (Reason: pain) Qty: 30 0RF Rx Instructions: You may take 5 to 10 mg PRN for pain every 6-8 hours. Discharge Orders: Discharge Order (Routine); Ordered 12/11/22 Ordered By: Edelmira Chairez/Other Patient Handouts: Hip Precautions Admission Data Admit Date/Time: 12/04/22 12:16 Attending Provider: Mik Seay Admit Provider: Mik Seay Primary Care Provider: Arpit Osman Other Providers: Marybeth Goodrich at [place] ; [place] ; Mik Seay ; Douglas French ; Debo Hewitt ; Anselmo Anderson ; Edelmira Gonzales Other Interventions: Discharge Summary Assessment (RN) Last Done: 12/15/22 11:46
== END 2022-12-15 15:45 | disposition home or self-care (01) | DRG 522 ==
LOC: ED 09:09 → SUATTDRO 12:16 → 2N 12:16 → 3E 13:28

== ENCOUNTER 2023-07-19 13:08 | Inpatient (IN) ==
--- OUTSIDE RECORDS SUMMARY | 2023-07-19 13:12 | External Medical Summary | Summary of Care ---
Author Name Unknown Organization [facility] Address [address] [place] [address] Phone [phone] Care Team Providers Care C D Area Supervisor Name Role Phone Dawson CALDERON MD, John E Primary Care Provider [phone] Reason for Visit * Reason Onset Date Comments Medication Refill 06/22/2023 Encounter Details Date Type Department Care Team (Late st Contact Info) Description 06/22/2023 Refill Family Practice [facility] [address] [facility] [address] Arpit Osman III, MD [address] [place] [address] Heart's esophagus Allergies Active Allergy Reactions Criticality Noted Date Comments Clonazepam Low 04/21/2005 sick weak, Other reaction(s): nausea Cyclobenzaprine High 09/22/2001 itch swell rash wt gain depression Other reaction(s): RASH AND SWELLING Fentanyl High 03/08/2002 duragesic patch, hands and feet swelling Other reaction(s): MAJOR FEET SWELLING Hydrocodone Other (Please comment) 06/17/2022 Per patient's My G message dated 06/09/22 she doesn't like the withdrawal symptoms Ketorolac 01/15/2019 Other reaction(s): SEE COMMENT Clonazepam Nausea/vomiting 05/29/2010 Oxcarbazepine 02/14/2010 Other reaction(s): UNKNOWN - PT DOESN'T REMEMBER Other reaction(s): UNKNOWN - PT DOESN'T REMEMBER Oxycodone Other (Please comment) 06/17/2022 Per patient's my g message dated 06/09/22 she doesn't like the withdrawal symptoms. Risperidone High 11/10/2005 Weak and tired Other reaction(s): exhaustion Risperidone 05/29/2010 exhaustion Trileptal Unknown 05/29/2010 documented as of this encounter (statuses as of 06/23/2023) Medications Medication Sig Dispensed Refills Start Date End Date Status TYLENOL EXTRA STRENGTH 500 MG PO TABS 2 tablets every 4 hours up to 6 tablets per day 0 Active acyclovir (ZOVIRAX) 5 % OINT Apply topically to affected area 6 times a day. Apply to lip sores as soon as symptoms start. 2 g 5 06/25/2016 Active fluticasone (FLONASE) 50 MCG/ACT nasal spray Administer 2 Sprays into each nostril daily. opp hand 1 Bottle 11 12/24/2017 Active triamcinolone acetonide (ARISTOCORT) 0.1 % creamIndications:Ec zema of external ear, bilateral Apply topically to affected area 2 times a day. To affected area. 15 g 5 06/24/2018 Active Diclofenac Sodium 1 % gel Apply 2 g topically to affected area 4 times a day. 1 Tube 11 05/26/2019 Active Albuterol Sulfate (ALBUTEROL HFA) 108 (90 BASE) MCG/ACT inhalerIndications: Wheezing Inhale 2 Puffs by mouth 4 times a day. 18 g 3 01/04/2020 Active Omeprazole 20 MG Oral Capsule Delayed Release (PriLOSEC) TAKE 1 CAPSULE BY MOUTH TWICE A DAY 180 Capsule 0 10/13/2021 Active Polyethylene Glycol 3350 17 GM/SCOOP Oral Powder (MiraLax)Indication s:Closed fracture of tibial plateau with routine healing, unspecified laterality, subsequent encounter,Nondispla cricket physeal fracture of distal end of right radius with routine healing, subsequent encounter Take by mouth 17 g daily as needed for Constipation. Dissolve one heaping tablespoon in 8 ounces of water or juice. 225 g 3 02/02/2022 Active Lidocaine 5 % External Patch (Lidoderm)Indicatio ns:Closed fracture of left tibial plateau, initial encounter Place topically on the skin 1 Patch daily as needed for Pain, Moderate. 30 Patch 0 02/14/2022 Active Ferrous Sulfate 325 (65 Fe) MG Oral Tablet (Feosol) TAKE 1 TABLET BY MOUTH TWICE A DAY 180 Tablet 0 03/19/2022 Active oxyCODONE HCl 5 MG Oral Tablet (Oxy IR)Indications:Clos ed fracture of tibial plateau with routine healing, unspecified laterality, subsequent encounter,Nondispla cricket physeal fracture of distal end of right radius with routine healing, subsequent encounter Take 0.5 Tablets (2.5 mg) by mouth every 8 hours as needed for Pain, Severe. Max daily dose of 1.5 tabs/day. Do not start before June 11, 2022. 21 Tablet 0 06/11/2022 Active Ondansetron 8 MG Oral Tablet Disintegrating (Zofran)Indications :Nausea Place 1 Tablet on tongue every 8 hours as needed for Nausea. dissolve on tongue. 18 Tablet 3 09/07/2022 Active predniSONE 5 MG Oral Tablet (Deltasone)Indicati ons:Primary osteoarthritis of both knees,Myalgia Take 1 Tablet by mouth in the morning. 30 Tablet 3 09/07/2022 Active Furosemide 20 MG Oral Tablet (Lasix) Take 1 Tablet by mouth in the morning. 30 Tablet 11 01/29/2023 Active Losartan Potassium 50 MG Oral Tablet (Cozaar)Indications :HTN, goal below 140/90 TAKE 1 TABLET BY MOUTH EVERY DAY 90 Tablet 1 03/25/2023 Active DULoxetine HCl 60 MG Oral Capsule Delayed Release Particles (Cymbalta) Take two pills in the morning with breakfast 60 Capsule 3 04/23/2023 Active lamoTRIgine 150 MG Oral Tablet (LaMICtal) Take 1 Tablet by mouth in the morning and 1 Tablet before bedtime. 60 Tablet 3 04/23/2023 Active Topiramate 100 MG Oral Tablet (topAMAX) Take 2 Tablets by mouth at bedtime. 60 Tablet 3 04/23/2023 Active Levothyroxine Sodium 50 MCG Oral Tablet (Levoxyl) take 1 tablet by mouth once daily 90 Tablet 0 04/26/2023 Active Metaxalone 800 MG Oral Tablet (Skelaxin)Indicatio ns:Spasm of muscle Take 1 Tablet by mouth in the morning and 1 Tablet at noon and 1 Tablet in the evening and 1 Tablet before bedtime. As needed. 40 Tablet 5 04/29/2023 Active Gabapentin 300 MG Oral Capsule (Neurontin)Indicati ons:Heart's esophagus Take 1 Capsule by mouth in the morning and 1 Capsule at noon and 1 Capsule in the evening and 1 Capsule before bedtime. 360 Capsule 0 06/23/2023 Active Gabapentin 300 MG Oral Capsule (Neurontin)Indicati ons:Heart's esophagus Take 1 Capsule by mouth in the morning and 1 Capsule at noon and 1 Capsule in the evening and 1 Capsule before bedtime. 360 Capsule 0 02/08/2023 3 Discontinu ed(Refill) Hospital, Clinic, or Other Facility Administered Medication Ordered Dose Route Frequency Start Date End Date Status ketorolac (TORADOL) 60 MG/2ML IM inj 60 mgIndications:Fibromyalgia 60 mg IM MTH 02/29/2020 Active documented as of this encounter (statuses as of 06/23/2023) Active Problems Problem Noted Date Diagnosed Date Insomnia 12/01/2022 Major depressive disorder, recurrent episode, mo derate 11/11/2022 Anxiety disorder 11/11/2022 TERMINATED MEDICATION USAGE AGREEMENT 12/20/2019 Suicide attempt by drug overdose 12/19/2019 Hyperparathyroidism 12/05/2018 Malaise and fatigue 09/27/2018 Retention cyst of tonsil 01/28/2018 History of eustachian tube dysfunction 8 Sensorineural hearing loss (SNHL) of both ears 0 01/28/2018 Throat discomfort 01/28/2018 Deviated nasal septum 01/28/2018 Primary osteoarthritis of both knees 01/04/2018 Kidney disease, chronic, stage III (GFR 30-59 ml /min) 10/26/2017 Overview: Per CKD protocol #1 Fibromyalgia 10/12/2016 Fusion of spine of thoracolumbar region 07/23/19 16 Overview: T10-L5 Osteoarthrosis, localized, primary, involving lo wer leg 08/07/2013 Overview: ICD-10 update of inactive term HTN, GOAL BELOW 140/90 06/05/2009 Overview: Modified per HTN protocol #16. Heart's esophagus 11/10/2005 ADVANCE DIRECTIVE INFORMATION 03/09/2005 Overview: No, Advance Directive brochure given to patient at prior appointment. Pain in limb 08/08/2002 documented as of this encounter (statuses as of 06/23/2023) Resolved Problems Problem Noted Date Diagnosed Date Resolved Date Bipolar 1 disorder, depressed, severe 10/25/2017 11/11/2022 Bipolar depression 07/08/2017 8 Myalgia and myositis 06/30/2010 017 HYPERTENSION NOS 11/27/2005 06/06/2009 Overview: Modified per HTN protocol #16. Major depressive disorder 08/08/2002 Overview: ICD-10 update of inactive term CKD (chronic kidney disease), stage III 11/28/2020 documented as of this encounter (statuses as of 06/23/2023) Immunizations Name Administration Dates Next Due COVID-19 mRNA, LNP-s, No Pre serve, 2-Dose Series (Pfizer) 05/27/2021,10/17/2020,09/26/2020 Pneumococcal Conjugate Vacci ne, 20-valent ([id number]) 03/04/2022 Pneumococcal Polysaccharide PPV23 (Pneumovax) 06/15/2020,08/06/2010 SEASONAL INFLUENZA, PF, 6 M & Above, IM , (FLULAVAL or FLUZONE) 08/15/2018,07/08/2017 Seasonal Influenza Virus Vac cine, Unspecified Formulation 05/27/2021,06/15/2020 Seasonal Influenza, Quadriva lent Hd (Fluzone Hd) 04/20/2022 Seasonal Influenza, Quadriva lent,with Preserve, 3 yr & Above, IM 07/02/2016 Seasonal Influenza, Split, I IV3, With Preserve, Inj 06/25/2015,05/14/2014,04/13/2013,04/01,04/24/2011,05/09/2010,05/24/2009 ,04/25/2008,05/11/2007,04/20/2006 TD - Tetanus/Diptheria (ADULT) 01/10/2005 TDAP (age 10 and older)(Boostrix) 01/18/2012 TDAP (age 11 and older)(Adacel) 11/23/2014 Varicella Zoster Vaccine (Adult) 11/29/2014 Zoster Vaccine Recombinant (Shingrix) 01/04/2020 documented as of this encounter Social History Tobacco Use Types Packs/Day Years Used Date Smoking Tobacco: Former Cigarettes 12 Q uit: 08/06/1990 Smokeless Tobacco: Never Comments:quit in 1990 Alcohol Use Standard Drinks/Week Comments Yes 0 (1 standard drink = 0.6 oz pur e alcohol) very occasional per paitent PHQ-2 Answer Date Recorded PHQ-2 Score -1 05/22/2018 Hunger Vital Sign Answer Date Recorded Within the past 12 months, y ou worried that your food would run out before you got the money to buy more. Never true 02/27/20 22 Within the past 12 months, t he food you bought just didn't last and you didn't have money to get more. Never true 02/26/2022 Education Answer Date Recorded What is the highest level of school you have completed or the highest degree you have received? Some college, no degree 12/02/2021 Sex and Gender Information Value Date Recorded Sex Assigned at Female 02/26/2022 2:41 PM EDT Gender Identity Bisexual 02/26/2022 2:41 PM EDT Sexual Orientation Bisexual 02/26/2022 2: 41 PM EDT Job Start Date Occupation Industry Not on file Not on file Not on file documented as of this encounter Miscellaneous Notes * Telephone Encounter - Dami Gomes DO - 06/23/2023 2:54 PM ESTSigned Prescriptions: Disp Refills Gabapentin 300 MG Oral Capsule (Neurontin) 360 Ca*0 Sig: Take 1 Capsule by mouth in the morning and 1 Capsule at noon and 1 Capsule in the evening and 1 Capsule before bedtime. Authorizing Provider: DAMI GOMES * Telephone Encounter - Clementina Whyte LPN - 06/23/2023 1:47 PM EST Pending Prescriptions: Disp Refills Gabapentin 300 MG Oral Capsule (Neurontin) 360 Ca*0 Sig: Take 1 Capsule by mouth in the morning and 1 Capsule at noon and 1 Capsule in the evening and 1 Capsule before bedtime. * Telephone Encounter - Clementina Whyte LPN - 06/23/2023 1:47 PM EST Pending Prescriptions: Disp Refills Gabapentin 300 MG Oral Capsule (Neurontin)360 Ca*0 Sig: Take 1 Capsule by mouth in the morning and 1 Capsule at noon and 1 Capsule in the evening and 1 Capsule before bedtime. Last Visit: 11/03/2022 (in office), 01/29/2023 (telemedicine) Next Visit: Visit date not found Last date the medication was ordered: 02/08/2023 Patient Active Problem List Diagnosis Code Pain in limb M79.609 ADVANCE DIRECTIVE INFORMATION Heart's esophagus K22.70 HTN, GOAL BELOW 140/90 I10 Osteoarthrosis, localized, primary, involving lower leg M17.10 Fusion of spine of thoracolumbar region M43.25 Fibromyalgia M79.7 Kidney disease, chronic, stage III (GFR 30-59 ml/min) N18.30 Primary osteoarthritis of both knees M17.0 Retention cyst of tonsil J35.8 History of eustachian tube dysfunction Z86.69 Sensorineural hearing loss (SNHL) of both ears H90.3 Throat discomfort R07.0 Deviated nasal septum J34.2 Malaise and fatigue R53.81, R53.83 Hyperparathyroidism (HCC) E21.3 Suicide attempt by drug overdose ([facility]) T50.902A TERMINATED MEDICATION USAGE AGREEMENT [id number] Major depressive disorder, recurrent episode, moderate ([facility]) F33.1 Anxiety disorder F41.9 Insomnia G47.00 Labs: Lab Results Component Value Date/Time CREATININE 0.7 10/26/1996 09:00 AM CREATININE - [facility] 1.0 01/22/2022 05:45 AM CREATININE - [facility] 1.2 (H) 02/02/2020 10:09 AM CREATININE MICHAEL - [facility] 50 04/20/2022 03:42 PM CREATININE, RANDOM URINE - [facility] 113 09/11/2014 02:56 PM CREATININE-OUTSIDE [facility] 0.82 01/02/2020 12:00 AM Lab Results Component Value Date/Time POTASSIUM 3.8 10/26/1996 09:00 AM POTASSIUM - [facility] 4.3 01/22/2022 05:45 AM POTASSIUM - [facility] 4.3 02/02/2020 10:09 AM POTASSIUM-OUTSIDE LAB 4.2 01/02/2020 12:00 AM Lab Results Component Value Date/Time TSH - [facility] 2.19 01/14/2022 05:40 AM TSH - [facility] 0.56 12/21/2018 12:20 PM TSH - OUTSIDE LAB 0.518 12/16/2019 12:00 AM Lab Results Component Value Date/Time LDL (CALCULATED)-[facility] 142 05/18/2018 12:00 AM LDL CHOLESTEROL (CALCULATED) - [facility] 156 (H) 11/26/2021 03:29 PM LDL CHOLESTEROL (CALCULATED) - [facility] 89 07/07/2013 10:23 AM LDL CHOLESTEROL (CALCULATED) - [facility] 96 11/30/2008 08:05 AM LDL CHOLESTEROL (DIRECT MEASURE) - [facility] 154 (H) 11/26/2021 03:29 PM LDL CHOLESTEROL (DIRECT MEASURE) - [facility] 101 (H) 08/19/2007 12:10 PM Lab Results Component Value Date/Time ALT 12 (L) 10/26/1996 09:00 AM ALT - [facility] 26 01/04/2020 01:50 PM Hemoglobin AIC Results: Lab Results Component Value Date/Time HEMOGLOBIN A1C - [facility] 5.3 05/08/2014 09:24 AM HEMOGLOBIN A1C - [facility] 6.1 01/30/2014 03:30 PM HEMOGLOBIN A1C - [facility] 5.8 11/01/2013 03:35 PM * Telephone Encounter - Jj Renteria - 06/22/2023 9:02 PM ESTPending Prescriptions: Disp Refills Gabapentin 300 MG Oral Capsule (Neurontin) 360 Ca*0 Sig: Take 1Capsule by mouth in the morning and 1 Capsule at noon and 1 Capsule in the evening and 1 Capsule before bedtime. documented in this encounter Plan of Treatment Health Maintenance Due Date Last Done Comments Cologuard 1999 Sigmoidoscopy 1999 Fecal Occult Blood Test 08/08/2003 08/08/2002 Mammogram 09/27/2003 09/26/2002 Hepatitis B (1 of 3 - Risk 3-dose series) 2014 Albumin/Creatinine Ratio 09/11/2015 09/11/2014 Heart's Esophagus Surveilance 12/08/2016 12/08/2013, 09/24/2005 Depression Screening 08/09/2018 08/09/2017 Zoster Vaccines (3 of 3) 02/29/2020 01/04/2020, 11/16 CKD PHOS USE SMARTSET 85777 11/26/2022 11/26/2021, 1 TSH 01/14/2023 01/14/2022, 11/16, 12/16/2019, Additional history exists CKD HGB USE SMARTSET 97760 01/22/202301/22, 01/16/2022, 01/10/2022, Additional history exists COVID-19 Vaccine ( season) 2023 05/27/2021, 05/27/2021, 10/17/2020, Additional history exists Influenza Vaccine (FLU shot) (#1) 2023 04/20/2022, 05/27/2021, 05/27/2021, Additional history exists GFR 04/27/2023 10/26/2022 (Done elsewhere), 01/22/2022, 01/16/2022, Additional history exists Colonoscopy 12/21/2023 12/20/2013, 10/2013, 12/08/2013, Additional history exists Colorectal Cancer Screening 12/21/2023 DTaP,Tdap,and Td Vaccines (3 - Td or Tdap) 11/23/2024 11/23/2014, 01/18/2012, 01/10/2005 DXA Scan 02/28/2025 02/28/2018, 10/18, 11/06/2013, Additional history exists Lipid Panel 11/26/2026 11/26/2021, 11/16, 05/18/2018, Additional history exists Pneumococcal Vaccine: 65+ Years Completed 03/04/2022, 06/15/2020, 08/06/2010 GARDASIL-HPV IMMUNIZATION SERIES Aged Out No longer eligible based on patient's age to complete this topic MENINGOCOCCAL (MENACTRA/MENVEO) Aged Out No longer eligible based on patient's age to complete this topic documented as of this encounter Medical Devices Not on filedocumented as of this encounter Visit Diagnoses Diagnosis Heart's esophagus documented in this encounter Care Teams C D Area Supervisor Relationship Specialty Start Date End Date Arpit Osman III, MD [address] [place] [address] PCP - General 02/09/02 documented as of this encounter
--- OUTSIDE RECORDS SUMMARY | 2023-07-19 13:12 | External Medical Summary | Summary of Care ---
Author Name Unknown Organization [facility] Address [address] [place] [address] Phone [phone] Care Team Providers Care Investigative Agent Name Role Phone Dawson CALDERON MD, Juancarlos Arevalo Primary Care Provider [phone] Reason for Visit * Reason Comments eRx-Medication Refill Encounter Details Date Type Department Care Team (Late st Contact Info) Description 03/24/2023 Refill Family Practice [facility] [address] [facility] [place] [address] Juancarlos Granda III, MD [address] [place] [address] Encounter for long-term (current) use of medications*; HTN, GOAL BELOW 140/90 Allergies Active Allergy Reactions Criticality Noted Date [...] as of this encounter (statuses as of 06/14/2023) Medications Medication Sig Dispensed Refills Start Date End Date Status TYLENOL EXTRA STRENGTH 500 MG PO TABS 2 tablets every 4 hours up to 6 tablets per day 0 Active acyclovir (ZOVIRAX) 5 % OINT Apply topically to affected area 6 times a day. Apply to lip sores as soon as symptoms start. 2 g 5 6 Active fluticasone (FLONASE) 50 MCG/ACT nasal spray Administer 2 Sprays into each nostril daily. opp hand 1 Bottle 11 8 Active triamcinolone acetonide (ARISTOCORT) 0.1 % creamIndications:E czema of external ear, bilateral Apply topically to affected area 2 times a day. To affected area. 15 g 5 8 Active Diclofenac Sodium 1 % gel Apply 2 g topically to affected area 4 times a day. 1 Tube 11 9 Active Albuterol Sulfate (ALBUTEROL HFA) 108 (90 BASE) MCG/ACT inhalerIndications :Wheezing Inhale 2 Puffs by mouth 4 times a day. 18 g 3 0 Active Omeprazole 20 MG Oral Capsule Delayed Release (PriLOSEC) TAKE 1 CAPSULE BY MOUTH TWICE A DAY 180 Capsule 0 2 Active Polyethylene Glycol 3350 17 GM/SCOOP Oral Powder (MiraLax)Indicatio ns:Closed fracture of tibial plateau with routine healing, unspecified laterality, subsequent encounter,Nondispl aced physeal fracture of distal end of right radius with routine healing, subsequent encounter Take by mouth 17 g daily as needed for Constipation. Dissolve one heaping tablespoon in 8 ounces of water or juice. 225 g 3 2 Active Lidocaine 5 % External Patch (Lidoderm)Indicati ons:Closed fracture of left tibial plateau, initial encounter Place topically on the skin 1 Patch daily as needed for Pain, Moderate. 30 Patch 0 2 Active Ferrous Sulfate 325 (65 Fe) MG Oral Tablet (Feosol) TAKE 1 TABLET BY MOUTH TWICE A DAY 180 Tablet 0 2 Active oxyCODONE HCl 5 MG Oral Tablet (Oxy IR)Indications:Alison sed fracture of tibial plateau with routine healing, unspecified laterality, subsequent encounter,Nondispl aced physeal fracture of distal end of right radius with routine healing, subsequent encounter Take 0.5 Tablets (2.5 mg) by mouth every 8 hours as needed for Pain, Severe. Max daily dose of 1.5 tabs/day. Do not start before June 11, 2022. 21 Tablet 0 2 Active Ondansetron 8 MG Oral Tablet Disintegrating (Zofran)Indication s:Nausea Place 1 Tablet on tongue every 8 hours as needed for Nausea. dissolve on tongue. 18 Tablet 3 3 Active predniSONE 5 MG Oral Tablet (Deltasone)Indicat ions:Primary osteoarthritis of both knees,Myalgia Take 1 Tablet by mouth in the morning. 30 Tablet 3 3 Active Furosemide 20 MG Oral Tablet (Lasix) Take 1 Tablet by mouth in the morning. 30 Tablet 11 3 Active Gabapentin 300 MG Oral Capsule (Neurontin)Indicat ions:Heart's esophagus Take 1 Capsule by mouth in the morning and 1 Capsule at noon and 1 Capsule in the evening and 1 Capsule before bedtime. 360 Capsule 0 3 Active Losartan Potassium 50 MG Oral Tablet (Cozaar)Indication s:HTN, goal below 140/90 TAKE 1 TABLET BY MOUTH EVERY DAY 90 Tablet 1 3 Active Losartan Potassium 50 MG Oral Tablet (Cozaar) TAKE 1 TABLET BY MOUTH EVERY DAY 90 Tablet 1 3 03/25/20 23 Discontinued Levothyroxine Sodium 50 MCG Oral Tablet (Levoxyl) take 1 tablet by mouth once daily 90 Tablet 0 3 04/26/20 23 Discontinued DULoxetine HCl 60 MG Oral Capsule Delayed Release Particles (Cymbalta) Take 1 Capsule by mouth in the morning and 1 Capsule before bedtime. 60 Capsule 3 3 04/23/20 23 Discontinued(Re fill) lamoTRIgine 150 MG Oral Tablet (LaMICtal) Take 1 Tablet by mouth in the morning and 1 Tablet before bedtime. 60 Tablet 3 3 04/23/20 23 Discontinued(Re fill) Topiramate 100 MG Oral Tablet (topAMAX) Take 2 Tablets by mouth at bedtime. 60 Tablet 3 3 04/23/20 23 Discontinued(Re fill) Metaxalone 800 MG Oral Tablet (Skelaxin)Indicati ons:Spasm of muscle take 1 tablet by mouth four times a day 40 Tablet 5 3 04/29/20 23 Discontinued Hospital, Clinic, or Other Facility Administered Medication Ordered Dose Route Frequency Start Date End Date Status ketorolac (TORADOL) 60 MG/2ML IM inj 60 mgIndications:Fibromyalgia 60 mg IM MTH 02/29/2020 Active documented as of this encounter (statuses as of 06/14/2023) Active Problems Problem Noted Date Diagnosed Date [...] as of this encounter (statuses as of 06/14/2023) Resolved Problems Problem Noted Date Diagnosed Date Resolved Date Bipolar 1 disorder, depressed, severe 10/25/2017 11/11/2022 Bipolar depression 07/08/2017 8 Myalgia and myositis 06/30/2010 017 HYPERTENSION NOS 11/27/2005 06/06/2009 Overview: Modified per HTN protocol #16. Major depressive disorder 08/08/2002 Overview: ICD-10 update of inactive term CKD (chronic kidney disease), stage III 11/28/2020 documented as of this encounter (statuses as of 06/14/2023) Immunizations Name Administration Dates Next Due COVID-19 mRNA, LNP-s, No Pre serve, 2-Dose Series ([employer]) 05/27/2021,10/17/2020,09/26/2020 Pneumococcal Conjugate Vacci ne, 20-valent ([id number]) 03/04/2022 Pneumococcal Polysaccharide PPV23 (Pneumovax) 06/15/2020,08/06/2010 SEASONAL [...] encounter Miscellaneous Notes * Telephone Encounter - Maria R Barrios PHARM Tech - 06/14/2023 3:58 PM EST Patient had an OV 01/29/23, letter sent to have labs drawn. Thank you, César Barrios [facility] [employer] ( [facility]) 06/14/2023, 3:58 PM * Telephone Encounter - Yaya Bustos [facility] - 03/25/2023 12:26 PM EDT Signed Prescriptions: Disp Refills Losartan Potassium 50 MG Oral Tablet (Coza*90 Tab*1 Sig: TAKE 1 TABLET BY MOUTH EVERY DAY Authorizing Provider: JUANCARLOS GRANDA III Ordering User: YAYA BUSTOS * Telephone Encounter - Yaya Bustos [facility] - 03/25/2023 12:21 PM EDT Provided 90 days supply with 1 refill. Per refill protocol patient should have routine labs on filewithin past year. Reviewed AMP report, Care Gaps/Health Maintenance, medications list, and for any routine labs typically ordered for this patient. Lab orders placed. Please contact patient to schedule office visit with her PRIMARY CARE and advise of labs ordered for blood draw.. Recommend patient to fast if able for labs. Patient may still have water and regular medications. Advise to obtain labs before requesting the next refill. Last Visit: 11/03/2022 (in office), 01/29/2023 (telemedicine) Next Visit: Visit date not found Thank You, Yaya Bustos, Pharm-D Clinical Pharmacist [facility] ([facility]) [phone] 03/25/2023, 12:25 PM documented in this encounter Plan of Treatment Scheduled Orders Name Type Priority Associated Diagnoses Orde r Schedule LIPID PANEL WITH DIRECT LDL IF TG IS HIGH Lab Routine Encounter for long-term (current) use of medications Expected: 03/26/2023 (Approximate), Expires: 03/25/2024 Health Maintenance Due Date Last Done Comments Cologuard 1999 Sigmoidoscopy 1999 Fecal Occult Blood Test 08/08/2003 08/08/2002 Mammogram 09/27/2003 09/26/2002 Hepatitis B (1 of 3 - Risk 3-dose series) 2014 Albumin/Creatinine Ratio 09/11/2015 09/11/2014 Heart's Esophagus Surveilance 12/08/2016 12/08/2013, 09/24/2005 Depression Screening 08/09/2018 08/09/2017 Zoster Vaccines (3 of 3) 02/29/2020 01/04/2020, 11/16 CKD PHOS USE SMARTSET 57584 11/26/2022 11/26/2021, 1 TSH 01/14/2023 01/14/2022, 11/16, 12/16/2019, Additional history exists CKD HGB USE SMARTSET 41981 01/22/202301/22, 01/16/2022, 01/10/2022, Additional history exists COVID-19 [...] as of this encounter Visit Diagnoses Diagnosis Encounter for long-term (current) use of medications- Primary Encounter for long-term (current) use of other medications HTN, GOAL BELOW 140/90 Unspecified essential hypertension documented in this encounter Care Teams Investigative Agent Relationship Specialty Start Date End Date Juancarlos Granda III, MD [address] [facility] [place] [address] PCP - General 02/09/02 documented as of this encounter
--- OUTSIDE RECORDS SUMMARY | 2023-07-19 13:12 | External Medical Summary | Summary of Care ---
Author Name Unknown Organization [facility] Address [address] [place] [address] Phone [phone] Care Team Providers Care Entertainment Centre Manager Name Role Phone Dawson CALDERON MD, John E Primary Care Provider [phone] Reason for Visit * Reason Onset Date Comments Medication Refill 07/08/2023 Encounter Details Date Type Department Care Team (Late st Contact Info) Description 07/08/2023 Refill Family Practice [facility] [address] [facility] [place] [address] Juancarlos Granda III, MD [address] [place] [address] Primary osteoarthritis of both knees; Myalgia Allergies Active Allergy Reactions Criticality Noted Date [...] as of this encounter (statuses as of 07/14/2023) Medications Medication Sig Dispensed Refills Start Date [...] a day. 18 g 3 01/04/2020 Active Polyethylene Glycol 3350 17 GM/SCOOP Oral [...] on tongue. 18 Tablet 3 09/07/2022 Active Furosemide 20 MG [...] before bedtime. 360 Capsule 0 06/23/2023 Active Omeprazole 20 MG Oral Capsule Delayed Release (PriLOSEC) Take 1 Capsule by mouth in the morning and 1 Capsule before bedtime. 180 Capsule 1 07/09/2023 Active predniSONE 5 MG Oral Tablet (Deltasone)Indicati ons:Primary osteoarthritis of both knees,Myalgia Take 1 Tablet by mouth in the morning. 30 Tablet 1 07/11/2023 Active Omeprazole 20 MG Oral Capsule Delayed Release (PriLOSEC) TAKE 1 CAPSULE BY MOUTH TWICE A DAY 180 Capsule 0 10/13/2021 3 Discontinu ed(Refill) predniSONE 5 MG Oral Tablet (Deltasone)Indicati ons:Primary osteoarthritis of both knees,Myalgia Take 1 Tablet by mouth in the morning. 30 Tablet 3 09/07/2022 3 Discontinu ed(Refill) Hospital, Clinic, or Other Facility Administered Medication Ordered Dose Route Frequency Start Date End Date Status ketorolac (TORADOL) 60 MG/2ML IM inj 60 mgIndications:Fibromyalgia 60 mg IM MTH 02/29/2020 Active documented as of this encounter (statuses as of 07/14/2023) Active Problems Problem Noted Date Diagnosed Date [...] as of this encounter (statuses as of 07/14/2023) Resolved Problems Problem Noted Date Diagnosed Date Resolved Date Bipolar 1 disorder, depressed, severe 10/25/2017 11/11/2022 Bipolar depression 07/08/2017 8 Myalgia and myositis 06/30/2010 017 HYPERTENSION NOS 11/27/2005 06/06/2009 Overview: Modified per HTN protocol #16. Major depressive disorder 08/08/2002 Overview: ICD-10 update of inactive term CKD (chronic kidney disease), stage III 11/28/2020 documented as of this encounter (statuses as of 07/14/2023) Immunizations Name Administration Dates Next Due COVID-19 mRNA, LNP-s, No Pre serve, 2-Dose Series (Pfizer) 05/27/2021,10/17/2020,09/26/2020 Pneumococcal Conjugate Vacci ne, 20-valent ([id number]) 03/04/2022 Pneumococcal Polysaccharide PPV23 (Pneumovax) 06/15/2020,08/06/2010 Seasonal Influenza Virus Vac cine, Unspecified Formulation 05/27/2021,06/15/2020 Seasonal Influenza, PF, 6 M & above, IM , (FluLaval or Fluzone) 08/15/2018,07/08/2017 Seasonal Influenza, Quadriva lent Hd (Fluzone Hd) 04/20/2022 Seasonal Influenza, Quadriva lent,with Preserve, 3 yr & above, IM 07/02/2016 Seasonal Influenza, Split, I IV3, [...] oz pur e alcohol) very occasional per nishanttent PHQ-2 Answer Date Recorded PHQ-2 Score -1 [...] encounter Miscellaneous Notes * Telephone Encounter - Ilda Oakley OSA - 07/14/2023 8:26 AM EST My g sent 07/14 * Telephone Encounter - Juancarlos Granda III, MD - 07/11/2023 8:09 AM ESTSigned Prescriptions: Disp Refills Omeprazole 20 MG Oral Capsule Delayed Rele*180 Ca*1 Sig: Take 1 Capsule by mouth in the morning and 1 Capsule before bedtime. Authorizing Provider: JUANCARLOS GRANDA III Ordering User: MICHELLE BURGESS predniSONE 5 MG Oral Tablet (Deltasone) 30 Tab*1 Sig: Take 1 Tablet by mouth in the morning. Authorizing Provider: YESENIA GRANDA III * Telephone Encounter - Juancarlos Granda III, MD - 07/11/2023 8:09 AM EST appt * Telephone Encounter - Michelle Burgess [facility] - 07/09/2023 4:07 PM ESTPending Prescriptions: Disp Refills predniSONE 5 MG Oral Tablet (Deltasone) 30 Tab*3 Sig: Take 1 Tablet by mouth in the morning. Signed Prescriptions: Disp Refills Omeprazole 20 MG Oral Capsule Delayed Rele*180 Ca*1 Sig: Take 1 Capsule by mouth in the morning and 1 Capsule before bedtime. Authorizing Provider: JUANCARLOS GRANDA III Order ing User: MICHELLE BURGESS * Telephone Encounter - Michelle Burgess [facility] - 07/09/2023 4:03 PM EST [facility] is currently not authorized to approve refills for the pended medication(s) per refill protocol. Please approve if appropriate. Pending Prescriptions: Disp Refills predniSONE 5 MG Oral Tablet (Deltasone) 30 Tab*3 Sig: Take 1 Tablet by mouth in the morning. Signed Prescriptions: Disp Refills Omeprazole 20 MG Oral Capsule Delayed Rele*180 Ca*1 Sig: Take 1 Capsule by mouth in the morning and 1 Capsule before bedtime. Authorizing Provider: JUANCARLOS GRANDA III Ordering User: MICHELLE BURGESS Last Visit: 11/03/2022 (in office), 01/29/2023 (telemedicine) Next Visit: Visit date not found If no future appointments scheduled, and last appointment is greater than a year ago, please schedule patient for a follow-up appointment Last date the medication was ordered: 09/07 Pharmacy: [id number] Is this request for a controlled substance? No Urine Drug Screen: Results for orders placed or performed in visit on 04/20/22 PAIN MANAGEMENT DRUG PANEL, URINE W/ INTERPRETATION Result Value Compliance Interpretation Based on the medication information provided: The positive oxycodone screening result is CONSISTENT with oxycodone use. Confirmatory testing is available upon request. The presence of THC metabolite is INCONSISTENT with the information provided. Amphetamines Screen, U Negative Benzodiazepines Screen, U Negative Cannabinoids Screen, U Refer to confirmation results (A) Cocaine Metabolite Screen, U Negative Fentanyl Screen, U Negative Hydrocodone Screen, U Negative Methadone Metabolite Screen, U Negative Morphine/Codeine Screen, U Negative Oxycodone Screen, U Positive (A) Valid Interpretation Normal Creatinine, U 50 Narrative Cutoff Concentrations: Drug Level Amphetamines 500 ng/mL Benzodiazepines 100 ng/mL Cannabinoids 50 ng/mL Cocaine Metabolite 150 ng/mL Fentanyl 1 ng/mL Hydrocodone / Hydromorphone 300 ng/mL Methadone Metabolite 100 ng/mL Morphine / Codeine 300 ng/mL Oxycodone / Oxymorphone 100 ng/mL Screening results are presumptive and can only be used for medical purposes. Confirmatory testing is available upon request. Results for orders placed or performed in visit on 11/13/21 TOXICOLOGY, URINE SCREEN W/ CONFIRMATION Result Value Amphetamines Screen, U Negative Benzodiazepines Screen, U Negative Cannabinoids Screen, U Positive (A) Cocaine Metabolite Screen, U Negative Fentanyl Screen, U Negative Hydrocodone Screen, U Negative Methadone Metabolite Screen, U Negative Morphine/Codeine Screen, U Positive (A) Oxycodone Screen, U Negative Narrative Cutoff Concentrations: Drug Level Amphetamines 500 ng/mL Benzodiazepines 100 ng/mL Cannabinoids 50 ng/mL Cocaine Metabolite 150 ng/mL Fentanyl 1 ng/mL Hydrocodone / Hydromorphone 300 ng/mL Methadone Metabolite 100 ng/mL Morphine / Codeine 300 ng/mL Oxycodone / Oxymorphone 100 ng/mL Screening results are presumptive and can only be used for medical purposes. Positive screening results are reflexed to confirmatory testing. *Note: Due to a large number of results and/or encounters for the requested time period, some results have not been displayed. A complete set of results can be found in Results Review. Patient Phone Numbers Labs: Lab Results Component Value Date/Time CREAT 1.0 01/22/2022 05:45 AM CREAT 1.2 (H) 02/02/2020 10:09 AM CREAT 0.7 10/26/1996 09:00 AM POTASSIUM 4.3 01/22/2022 05:45 AM POTASSIUM 4.3 02/02/2020 10:09 AM POTASSIUM 3.8 10/26/1996 09:00 AM TSH 2.19 01/14/2022 05:40 AM TSH 0.518 12/16/2019 12:00 AM TSH 0.56 12/21/2018 12:20 PM TSH 0.84 10/26/1996 09:00 AM LDLCALC 156 (H) 11/26/2021 03:29 PM LDLCALC 142 05/18/2018 12:00 AM LDLCALC 89 07/07/2013 10:23 AM LDLDIRECT 154 (H) 11/26/2021 03:29 PM LDLDIRECT 101 (H) 08/19/2007 12:10 PM ALT 26 01/04/2020 01:50 PM ALT 12 (L) 10/26/1996 09:00 AM HGBA1C 5.3 05/08/2014 09:24 AM Thank you, Michelle Burgess, PharmD Clinical Pharmacist [facility] ([facility]) 07/09/23 4:07 PM [phone] documented in this encounter Plan of Treatment Upcoming Encounters Date Type Department Care Team (Late st Contact Info) Description 08/09/2023 3:00 PM EST [facility] [address] [place] [address] Shelby Estrella MD [address] [place] [address] Health Maintenance Due Date Last Done Comments Cologuard 1999 Sigmoidoscopy 1999 Fecal Occult Blood Test 08/08/2003 08/08/2002 Mammogram 09/27/2003 09/26/2002 Hepatitis B (1 of 3 - Risk 3-dose series) 2014 Albumin/Creatinine Ratio 09/11/2015 09/11/2014 Heart's Esophagus Surveilance 12/08/2016 12/08/2013, 12/08/2013, 12/09/2010, Additional history exists Depression Screening 08/09/2018 08/09/2017 Zoster Vaccines (3 of 3) 02/29/2020 01/04/2020, 11/16 CKD PHOS USE SMARTSET 75835 11/26/2022 11/26/2021, 1 TSH 01/14/2023 01/14/2022, 11/16, 12/16/2019, Additional history exists CKD HGB USE SMARTSET 13773 01/22/202301/22, 01/16/2022, 01/10/2022, Additional history exists COVID-19 Vaccine ( season) 2023 05/27/2021, 05/27/2021, 10/17/2020, Additional history exists Influenza Vaccine (FLU shot) (#1) 2023 04/20/2022, 05/27/2021, 05/27/2021, Additional history exists GFR 04/27/2023 10/26/2022 (Done elsewhere), 01/22/2022, 01/16/2022, Additional history exists Colonoscopy 12/21/2023 12/20/2013, 0610/2013, 12/08/2013, Additional history exists Colorectal Cancer Screening [...] as of this encounter Visit Diagnoses Diagnosis Primary osteoarthritis of both knees Primary localized osteoarthrosis, lower leg Myalgia Mylagia and myositis, unspecified documented in this encounter Care Teams Entertainment Centre Manager Relationship Specialty Start Date End Date Juancarlos Granda III, MD [address] [place] [address] PCP - General 02/09/02 documented as of this encounter
--- OUTSIDE RECORDS SUMMARY | 2023-07-19 13:12 | External Medical Summary | Summary of Care ---
Author Name Unknown Organization [facility] Address [address] [place] [address] Phone [phone] Care Team Providers Care Sizer Hand Name Role Phone Dawson CALDERON MD, Juancarlos Arevalo Primary Care Provider [phone] Reason for Visit * Reason Comments eRx-Medication Refill Encounter Details Date Type Department Care Team (Late st Contact Info) Description 04/25/2023 Refill Family Practice [facility] [address] [place] [address] Juancarlos Granda III, MD [address] [place] [address] Stage 3 chronic kidney disease, unspecified whether stage 3a or 3b CKD (HCC)* Allergies Active Allergy Reactions Criticality Noted Date [...] the morning. 30 Tablet 11 3 Active Losartan Potassium 50 MG Oral Tablet (Cozaar)Indication s:HTN, goal below 140/90 TAKE 1 TABLET BY MOUTH EVERY DAY 90 Tablet 1 3 Active DULoxetine HCl 60 MG Oral Capsule Delayed Release Particles (Cymbalta) Take two pills in the morning with breakfast 60 Capsule 3 3 Active lamoTRIgine 150 MG Oral Tablet (LaMICtal) Take 1 Tablet by mouth in the morning and 1 Tablet before bedtime. 60 Tablet 3 3 Active Topiramate 100 MG Oral Tablet (topAMAX) Take 2 Tablets by mouth at bedtime. 60 Tablet 3 3 Active Levothyroxine Sodium 50 MCG Oral Tablet (Levoxyl) take 1 tablet by mouth once daily 90 Tablet 0 3 Active Levothyroxine Sodium 50 MCG Oral Tablet (Levoxyl) take 1 tablet by mouth once daily 90 Tablet 0 3 04/26/20 23 Discontinued Gabapentin 300 MG Oral Capsule (Neurontin)Indicat ions:Heart's esophagus Take 1 Capsule by mouth in the morning and 1 Capsule at noon and 1 Capsule in the evening and 1 Capsule before bedtime. 360 Capsule 0 3 06/22/20 23 Discontinued(Re fill) Metaxalone 800 MG Oral [...] mRNA, LNP-s, No Pre serve, 2-Dose Series (GuestSpan) 05/27/2021,10/17/2020,09/26/2020 Pneumococcal Conjugate Vacci ne, 20-valent ([id number]) 03/04/2022 Pneumococcal Polysaccharide PPV23 (Pneumovax) 06/15/2020,08/06/2010 SEASONAL [...] encounter Miscellaneous Notes * Telephone Encounter - Casie Fatima CPhT - 06/23/2023 5:44 PM EST Received message from [facility] regarding patient needing labs. Placed call to patient to advise. Left message on voicemail advising of required labs Thank you, Rose Fatima Clothing Manager I [facility] ([facility]) (Formerly Telepharmacy) 06/23/2023,5:44 PM * Telephone Encounter - Emi Guo RP - 04/26/2023 12:55 PM EDTSigned Prescriptions: Disp Refills Levothyroxine Sodium 50 MCG Oral Tablet (L*90 Tab*0 Sig: take 1 tablet by mouth once daily Authorizing Provider: JUANCARLOS GRANDA III User: EMI GUO * Telephone Encounter - Emi Guo RPh - 04/26/2023 12:53 PM EDT 2nd attempt Provided 90 days supply with 0 refill(s). Per refill protocol patient should have routine labs on file within past year. Reviewed AMP report, Care Gaps/Health Maintenance, medications list, and for any routine labs typically ordered for this patient. Lab orders placed. Please contact patient to advise of labs ordered for blood draw AND URINE specimen (patient will have to be able to void to provide sample). Recommend patient to fast if able for labs. Patient may still have water and regular medications. Advise to obtain labs before requesting the next refill. Thanks, Emi Guo PharmD Clinical Pharmacist [facility] ([facility]) (formerly Telepharmacy). [phone] 04/26/2023, 12:53 PM documented in this encounter Plan of Treatment Scheduled Orders Name Type Priority Associated Diagnoses Orde r Schedule ALBUMIN / CREATININE RATIO, URINE Lab Routine Stage 3 chronic kidney disease, unspecified whether stage 3a or 3b CKD (HCC) Expected: 04/26/2023, Expires: 04/26/2024 Health Maintenance Due Date Last Done Comments Cologuard 1999 Sigmoidoscopy 1999 Fecal Occult Blood Test 08/08/2003 08/08/2002 Mammogram 09/27/2003 09/26/2002 Hepatitis B (1 of 3 - Risk 3-dose series) 2014 Albumin/Creatinine Ratio 09/11/2015 09/11/2014 Heart's Esophagus Surveilance 12/08/2016 12/08/2013, 09/24/2005 Depression Screening 08/09/2018 08/09/2017 Zoster Vaccines (3 of 3) 02/29/2020 01/04/2020, 11/16 CKD PHOS USE SMARTSET 81521 11/26/2022 11/26/2021, 1 TSH 01/14/2023 01/14/2022, 11/16, 12/16/2019, Additional history exists CKD HGB USE SMARTSET 62856 01/22/202301/22, 01/16/2022, 01/10/2022, Additional history exists COVID-19 [...] as of this encounter Visit Diagnoses Diagnosis Stage 3 chronic kidney disease, unspecified whether stage 3a or 3b CKD (HCC)- Primary documented in this encounter Care Teams Sizer Hand Relationship Specialty Start Date End Date Juancarlos Granda III, MD [address] [place] [address] PCP - General 02/09/02 documented as of this encounter
--- OUTSIDE RECORDS SUMMARY | 2023-07-19 13:12 | External Medical Summary | Summary of Care ---
Author Name Unknown Organization [facility] Address [address] [place] [address] Phone [phone] Care Team Providers Care Piano Mechanic Apprentice Name Role Phone Dawson CALDERON MD, Juancarlos Arevalo Primary Care Provider [phone] Reason for Visit * Reason Comments eRx-Medication Refill Encounter Details Date Type Department Care Team Description 04/28/2023 Refill Family Practice [facility] [address] [facility] [id number] [address] Spasm of muscle Allergies Active Allergy Reactions Severity Noted Date Comments Clonazepam Low 04/21/2005 sick [...] as of this encounter (statuses as of 04/29/2023) Medications Medication Sig Dispensed Refills Start Date [...] 8 Active triamcinolone acetonide (ARISTOCORT) 0.1 % creamIndications:Ec [...] 2 Active Lidocaine 5 % External Patch (Lidoderm)Indicatio [...] 3 Active predniSONE 5 MG Oral Tablet (Deltasone)Indicati ons:Primary osteoarthritis of both knees,Myalgia Take 1 Tablet by mouth in the morning. 30 Tablet 3 3 Active Furosemide 20 MG Oral Tablet (Lasix) Take 1 Tablet by mouth in the morning. 30 Tablet 11 3 Active Gabapentin 300 MG Oral Capsule (Neurontin)Indicati [...] once daily 90 Tablet 0 3 Active Metaxalone 800 MG Oral Tablet (Skelaxin)Indicatio ns:Spasm of muscle Take 1 Tablet by mouth in the morning and 1 Tablet at noon and 1 Tablet in the evening and 1 Tablet before bedtime. As needed. 40 Tablet 5 3 Active Metaxalone 800 MG Oral Tablet (Skelaxin)Indicatio ns:Spasm of muscle take 1 tablet by mouth four times a day 40 Tablet 5 3 04/29/20 Discontinued Hospital, Clinic, or Other Facility Administered Medication Ordered Dose Route Frequency Start Date End Date Status ketorolac (TORADOL) 60 MG/2ML IM inj 60 mgIndications:Fibromyalgia 60 mg IM MTH 02/29/2020 Active documented as of this encounter (statuses as of 04/29/2023) Active Problems Problem Noted Date Insomnia 12/01/2022 Major depressive disorder, recurrent epi sode, moderate 11/11/2022 Anxiety disorder 11/11/2022 TERMINATED MEDICATION USAGE AGREEMENT Suicide attempt by drug overdose 020 Hyperparathyroidism 12/05/2018 Malaise and fatigue 09/27/2018 Retention cyst of tonsil 01/28/2018 History of eustachian tube dysfunction 0 01/28/2018 Sensorineural hearing loss (SNHL) of bot h ears 01/28/2018 Throat discomfort 01/28/2018 Deviated nasal septum 01/28/2018 Primary osteoarthritis of both knees Kidney disease, chronic, stage III (GFR 30-59 ml/min) 10/26/2017 Overview: Per CKD protocol #1 Fibromyalgia 10/12/2016 Fusion of spine of thoracolumbar region 07/23/2015 Overview: T10-L5 Osteoarthrosis, localized, primary, invo lving lower leg 08/07/2013 Overview: ICD-10 update of inactive term HTN, GOAL BELOW 140/90 06/05/2009 Overview: Modified per HTN protocol #16. Heart's esophagus 11/10/2005 ADVANCE DIRECTIVE INFORMATION 03/09/2005 Overview: No, Advance Directive brochure given to patient at prior appointment. Pain in limb 08/08/2002 documented as of this encounter (statuses as of 04/29/2023) Resolved Problems Problem Noted Date Resolved Date Bipolar 1 disorder, depressed, severe 10/25/2017 11/11/2022 Bipolar depression 07/08/2017 10/25/2017 Myalgia and myositis 06/30/2010 10/12/2016 HYPERTENSION NOS 11/27/2005 06/06/2009 Overview: Modified per HTN protocol #16. Major depressive disorder 08/08/20022016 Overview: ICD-10 update of inactive term CKD (chronic kidney disease), stage III 11/28/2020 documented as of this encounter (statuses as of 04/29/2023) Immunizations Name Administration Dates Next Due COVID-19 mRNA, LNP-s, No Pre serve, 2-Dose Series ([place]) 05/27/2021,10/17/2020,09/26/2020 Pneumococcal Conjugate Vacci ne, 20-valent ([id number]) 03/04/2022 Pneumococcal Polysaccharide PPV23 (Pneumovax) 06/15/2020,08/06/2010 SEASONAL [...] oz pur e alcohol) very occasional per sharan Food Insecurity Answer Date Recorded Within the past 12 months, y ou worried that your food would run out before you got money to buy more. Never true 02/26/2022 Within the past 12 months, t he food you bought just didn't last and you didn't have money to get more. Never true 02/26/2022 Education Answer Date Recorded What is the highest level of school you have completed or the highest degree you have received? Some college, no degree 12/02/2021 Sex Assigned at Date Recorded Female 02/26/2022 2:41 PM E DT Job Start Date Occupation Industry Not on file Not on file Not on file documented as of this encounter Miscellaneous Notes * Telephone Encounter - Juancarlos Granda III, MD - 04/29/2023 11:52 AM EDTSigned Prescriptions: Disp Refills Metaxalone 800 MG Oral Tablet (Skelaxin) 40 Tab*5 Sig: Take 1 Tablet by mouth in the morning and 1 Tablet at noon and 1 Tablet in the evening and 1 Tablet before bedtime. As needed.Authorizing Provider: JUANCARLOS GRANDA III * Telephone Encounter - Cleo Alonso LPN - 04/29/2023 10:03 AM EDTPending Prescriptions: Disp Refills Metaxalone 800 MG Oral Tablet [Pharmacy Me*40 Tab*5 Sig: take 1 tablet by mouth four times a day * Telephone Encounter - Cleo Alonso LPN - 04/29/2023 10:03 AM EDT Pending Prescriptions: Disp Refills Metaxalone 800 MG Oral Tablet (Skelaxin) *40 Tab*5 Sig: take 1 tablet by mouth four times a day Last Visit: 11/03/2022 (in office), 01/29/2023 (telemedicine) Next Visit: Visit date not found Last date the medication was ordered: 03/10/23 Patient Active Problem List Diagnosis Code Pain [...] (HCC) E21.3 Suicide attempt by drug overdose (HCC) T50.902A TERMINATED MEDICATION USAGE AGREEMENT [id number] Major depressive disorder, recurrent episode, moderate (HCC) F33.1 Anxiety disorder F41.9 Insomnia G47.00 Labs: [...] * Telephone Encounter - Jj Renteria - 04/29/2023 9:49 AM EDTPending Prescriptions: Disp Refills Metaxalone 800 MG Oral Tablet [Pharmacy Me*40 Tab*5 Sig: take 1 tablet by mouth four times a day documented in this encounter Plan of Treatment Upcoming Encounters Date Type Specialty Care Team Description 05/28/2023 Telemedicine Psychiatry Shelby Estrella MD [address] [facility] [place] [phone] Health Maintenance Due Date Last Done Comments Cologuard 1999 Sigmoidoscopy 1999 Fecal Occult Blood Test 08/08/2003 08/08/2002 Mammogram 09/27/2003 09/26/2002 Hepatitis B (1 of 3 - Risk 3-dose series) 2014 Albumin/Creatinine Ratio 09/11/2015 09/11/2014 Heart's Esophagus Surveilance 12/08/2016 12/08/2013, 09/24/2005 Depression Screening 08/09/2018 08/09/2017 Zoster Vaccines (3 of 3) 02/29/2020 01/04/2020, 11/16 CKD PHOS USE SMARTSET 75670 11/26/2022 11/26/2021, 1 TSH 01/14/2023 01/14/2022, 11/16, 12/16/2019, Additional history exists CKD HGB USE SMARTSET 46459 01/22/202301/22, 01/16/2022, 01/10/2022, Additional history exists COVID-19 [...] as of this encounter Visit Diagnoses Diagnosis Spasm of muscle documented in this encounter Care Teams Piano Mechanic Apprentice Relationship Specialty Start Date End Date Juancarlos Granda III, MD [address] [place] [address], [place] [address] PCP - General 02/09/02 documented as of this encounter
--- OUTSIDE RECORDS SUMMARY | 2023-07-19 13:13 | External Medical Summary | Continuity of Care Document ---
Author Name Unknown Organization [facility] [address] [place] [id number] Care Team Providers Care Tractor Trailer Driver Name Role Phone Arpit Osman Primary Care Physician [phone] Encounter [facility] [id number] Date(s): 04/14/23 - 04/14/23 [facility] [address] [place] [address] Medical [facility] [address] [place] [address] [phone] Encounter Diagnosis Chronic pain syndrome(Discharge Diagnosis) - 04/15/23 Fibromyalgia(Discharge Diagnosis) - 04/15/23 PTSD (post-traumatic stress disorder)(Discharge Diagnosis) - 04/15/23 Discharge Disposition: Home or Self Care Attending Physician: DO Brewer Gretchen Elizabeth Assessment and Plan Extracted from: Title:Office Visit Note Author:DO Brewer Gretc hen Elizabeth Date:04/14/23 1.Chronic pain syndrome Chronic, active, follow-up to initial evaluation 03/03/2023. Patient is accompanied by her"advocate"Brandon. Discussion today involved approach to patient's frustrationwithperceived inadequate pain management throughout the years leading her toa state debilitating pain andPTSD. Patient states that throughout the years she has been dismissed by physiciansand that her pain has not beenadequatelycontrolledthusworsening her overall pain dysfunction. Patientcontinues to be adamant that opiateswill bethebest approach to pain control for her. Patient has not been on chronic opiates but has had benefitin the short-term. She hasexperienced significant withdrawal specifically from oxycodone,as well as morphine. Recently she wasin acare facilityand was weaned from morphine after recent injury. Patient states that pain management physicians in area will refuse to see her. Overall our discussion revolved around the fact that Ias a physician do not feel safe prescribing her opioids, in fact they feel they are contraindicatedfor her fibromyalgia. We discussed that patient has a history of overdose and drug-seekingthroughout her medical recordwhich is concerning. There is also mention ofbroken pain contracts in the pastwith previous clinicians. Patient states that she has attempted suicide in the past due to inadequate pain control, we discussed the concern of hermental healthand reliance on opioidsto improve her quality of life.. In fact, consider the patientmay meet addiction criteria due to drug-seekingand ruminatingbehavior. In summary, I recommended consideration ofalternate medication to treat her fibromyalgia such as Savella, advised her to speak with her psychiatrist about this. I discussed that the consideration of buprenorphine therapy for her pain and possibleaddictionmay prove beneficial as buprenorphine is a partial agonist to satisfy the opioid receptorsand mayreduce her pain and overall cravings for opioid therapy. Overall advised patient that I do not believe that opioids will benefit her in the long run,that she will likely experience increasing tolerance and need for dose increase,as well as possible detriment of opioid-induced hyperalgesia or other side effects which may complicate her quality of life further. At the end of our lengthy discussion, patient's advocate Brandon stated that he will contactlocal multidisciplinary pain management groupthathe believes is affiliated with patient's orthopedist in the area. Patientmay follow-upfollowing consultation, she does remain under the care of her PCPin the area. 2.Fibromyalgia 3.PTSD (post-traumatic stress disorder) Immunizations Given and Recorded Vaccine Date Status Refusal Reason pneumococcal 20-valent conjugate vaccine 03/04/22 Recorded influenza virus vaccine, inactivated 05/27/21 Gabriel rded influenza virus vaccine, inactivated 06/07/20 Gabriel rded influenza virus vaccine, inactivated 08/15/18 Gabriel rded SARS COVID Vaccine Unspecified 05/27/21 Recorded SARS COVID Vaccine Unspecified 10/17/20 Recorded SARS COVID Vaccine Unspecified 09/26/20 Recorded pneumococcal 23-valent vaccine 06/15/20 Recorded pneumococcal 23-valent vaccine 08/06/10 Recorded zoster vaccine, inactivated 01/04/20 Recorded Zoster Vaccine Unspecified 11/29/14 Recorded tetanus/diphtheria/pertuss, acel (Tdap) 11/23/14 R ecorded tetanus/diphtheria/pertuss, acel (Tdap) 01/18/12 R ecorded tetanus toxoids-diphtheria, Td (Adult) 01/10/05 Re corded Medications DULoxetine Start: 03/03/23 15:28:00 EDT, 60 mg =, bid Start Date: 03/03/23 Status: Ordered gabapentin Start: 03/03/23 15:26:00 EDT, 300 mg =, Daily Start Date: 03/03/23 Status: Ordered lamoTRIgine Start: 03/03/23 15:28:00 EDT, 150 mg =, Daily Start Date: 03/03/23 Status: Ordered levothyroxine Start: 03/03/23 15:27:00 EDT, 50 mcg =, Daily Start Date: 03/03/23 Status: Ordered losartan Start: 03/03/23 15:29:00 EDT, 50 mg =, Daily Start Date: 03/03/23 Status: Ordered omeprazole Start: 03/03/23 15:27:00 EDT, 20 mg =, Daily Start Date: 03/03/23 Status: Ordered prednisoLONE Start: 03/03/23 15:28:00 EDT, 5 mg =, Daily Start Date: 03/03/23 Status: Ordered Skelaxin Start: 03/03/23 15:29:00 EDT, 800 mg =, qid Start Date: 03/03/23 Status: Ordered topiramate Start: 03/03/23 15:27:00 EDT, 100 mg =, bid Start Date: 03/03/23 Status: Ordered Tylenol Start: 03/03/23 15:26:00 EDT Start Date: 03/03/23 Status: Ordered Mental Status 04/14/23 Barriers to Learning one year None evide nt Mandatory Health Literacy Documentation Yes Health Literacy Communication Barriers N ever Primary Language Cymro Problem List Condition Confirmation Course Effective Dates Status Health St [facility] Informant Chronic pain syndrome Confirmed Active Fibromyalgia Confirmed Active Hypertension Confirmed Active PTSD (post-traumatic stress disorder) Confirmed Active Diagnosis Diagnosis Type Effective Dates Health Status Clinical Service Informant Fibromyalgia Discharge Diagnosis 04/15/23 Chronic pain syndrome Discharge Diagnosis 04/15/23 PTSD (post-traumatic stress disorder) Discharge Diagnosis 04/15/23 Procedures Procedure Date Related Diagnosis Body Site Status EKG finding 1 01/04/20 Completed 1Conclusions sinus tachcardia possible left atrial enlargment Low voltage QRS, consider pulmonary disease pericardial effusion, or normal variant Vital Signs Most recent to oldest [Reference Range]: 1 Patient Weight 68 kg (04/14/23 4:03 PM) Heart Rate 71 bpm (04/14/23 4:03 PM) Respiratory Rate 12 br/min (04/14/23 4:03 PM) Blood Pressure 124/78mmHg (04/14/23 4:03 PM) Cuff Pulse Pressure 46 mmHg (04/14/23 4:03 PM) Social History Social History Type Response Smoking Status Never smoked cigaret beba Sex Female FCM Outpt Note * DO Brewer Gretchen Elizabeth: PERFORM Event Display: FCM Outpt Note Authored Date: [id number] Chief Complaint 4 week F/U History of Present Illness Patient here for follow-up of pain with friend Brandon Patient currently at home Was weaning from morphine, no longer on opiates Horrible pain this 4days increased pain of right knee, chronic arthritis, had fracture, states was not given enough narcotics to complete physical therapy at [facility], states knee never healed properly and feels weakness - will be seeing Dr. Gonzales next week States that physicians have been inadequately treating her and causing pain chronically for 30 yrs States that the only time she could function was on opiates, longest 4 months, was receiving morphine 15 mg every 4 hours and states was developing tolerance States oxycodone worked best at [facility], struggled with withdrawal, very painful and lasted 2 weeks Was in group therapy for years [facility], interested in returning to psychiatrist On waiting list for pain managment at [facility] (Dr. Priest) and believes it is [facility] Continues to follow with Dr. Del Rosario Review of Systems Pertinent positives and negatives as stated in history of present illness. Physical Exam Vitals & Measurements HR:71(Monitored) RR:12 BP:124/78 SpO2:98% WT:68.000kg(Dosing) WT:68kg PHQ2 Data(Data Documented on:04/14/2023 16:03) Emotional health assessment POSITIVE PHQ-9 Data(Data Documented on:04/14/2023 16:05) PHQ-9 Severity Score:9 Thoughts that you would be better off or of hurting yourself in some way?Not at All Depression Risk:Not Elevated General:Alert and oriented, in wheelchair HEENT:Normocephalic, conjunctiva clear bilaterally, normal external ears Respiratory: Normal respiratory effort Psych:aggressive speech, tearful at times, frustrated Assessment/Plan 1.Chronic pain syndrome Chronic, active, follow-up to initial evaluation 03/03/2023. Patient is accompanied by her"advocate"Brandon. Discussion today involved approach to patient's frustrationwithperceived inadequate pain management throughout the years leading her toa state debilitating pain andPTSD. Patient states that throughout the years she has been dismissed by physiciansand that her pain has notbeenadequatelycontrolledthusworsening her overall pain dysfunction. Patientcontinues bi adamant that opiateswill bethebest approach to pain control for her. Patient has not been on chronic opiates but has had benefitin the short-term. She hasexperienced significant withdrawal specifically from oxycodone,as well as morphine. Recently she wasin acare facilityand was weaned from morphine after recent injury. [place]. Overall our discussion revolved around the fact that Ias a physician do not feel safe prescribing her opioids, in fact they feel they are contraindicatedfor her fibromyalgia. We discussed that patient has a history of overdose and drug- seekingthroughout her medical recordwhich is concerning. There is also mention ofbroken pain contracts in the pastwith previous clinicians. Patient states that she has attempted suicide in the past due to inadequate pain control, we discussed the concern of hermental healthand reliance on opioidsto improve her quality of life.. In fact, consider the patientmay meet addiction criteria due to drug-seekingand ruminatingbehavior. In summary, I recommended consideration ofalternate medication to treat her fibromyalgia such as Savellanne, advised her to speak with her psychiatrist about this. I discussed that the consideration of buprenorphine therapy for her pain and possibleaddictionmay prove beneficial as buprenorphine is a partial agonist to satisfy the opioid receptorsand mayreduce her pain and overall cravings for opioid therapy. Overall advised patient that I do not believethat opioids will benefit her in the long run,that she will likely experience increasing tolerance and need for dose increase,as well as possible detriment of opioid-induced hyperalgesia or otherside effects which may complicate her quality of life further. At the end of our lengthy discussion, patient's advocate Brandon stated that he will contactlocal multidisciplinary pain management groupthathe believes is affiliated with patient's orthopedist in the area. Patientmay follow-upfollowing consultation, she does remain under the care of her PCPin the area. 2.Fibromyalgia 3.PTSD (post-traumatic stress disorder) Attestation Total physician time spent on day of encounter with patient including pre-visit planning, chart review, [id number]-[id number] discussion, education, care coordination,and documentation: 90 minutes Problem List/Past Medical History Ongoing Chronic pain syndrome Fibromyalgia Hypertension PTSD (post-traumatic stress disorder) Procedure/Surgical History EKG finding (01/04/2020) Medications acetaminophen(Tylenol) DULoxetine, 60 mg, bid gabapentin, 300 mg, Daily lamoTRIgine, 150 mg, Daily levothyroxine, 50 mcg, Daily losartan, 50 mg, Daily metaxalone(Skelaxin), 800 mg, qid omeprazole, 20 mg, Daily prednisoLONE, 5 mg, Daily topiramate, 100 mg, bid Social History Smoking Status Never smoked cigarettes Immunizations Vaccine Date Status pneumococcal 20-valent conjugate vaccine 03/04/2022 Recorded influenza virus vaccine, inactivated 05/27/2021 Recorded SARS COVID Vaccine Unspecified 05/27/2021 Recorded SARS COVID Vaccine Unspecified 10/17/2020 Recorded SARS COVID Vaccine Unspecified 09/26/2020 Recorded pneumococcal 23-valent vaccine 06/15/2020 Recorded influenza virus vaccine, inactivated 06/07/2020 Recorded zoster vaccine, inactivated 01/04/2020 Recorded influenza virus vaccine, inactivated 08/15/2018 Recorded Zoster Vaccine Unspecified 11/29/2014 Recorded tetanus/diphtheria/pertuss, acel (Tdap) 11/23/2014 Recorded tetanus/diphtheria/pertuss, acel (Tdap) 01/18/2012 Recorded pneumococcal 23-valent vaccine 08/06/2010 Recorded tetanus toxoids-diphtheria, Td (Adult) 01/10/2005 Recorded Recommendations Health Maintenance Pending(in the next year) OverDue Adult Influenza Vaccine due01/16/23and every 1year Due Adult COVID-19 Vaccination due04/15/23Unknown Frequency Body Mass Index due04/15/23Unknown Frequency Breast Cancer Screening due04/15/23Unknown Frequency Colorectal Cancer Screening due04/15/23Unknown Frequency Depression Follow Up Plan due04/15/23Unknown Frequency Hepatitis C Screening due04/15/23One-time only Lipid Screening due04/15/23Unknown Frequency Medicare Annual Wellness Visit due04/15/23and every 1year Osteoporosis Screening due04/15/23One-time only Satisfied(in the past 1 year) There are no satisfied recommendations within the defined date range Electronic Signature on File Electronically Reviewed/Signed by: Wendy Brewer D.O. Author Signature Dt/Tm:04/15/2023 08:28 PM Department of Family Medicine [facility] Patient Care team information Care Team Personnel Name: MD Dawson, Arpit Arevalo Position: Referring DIRECT Member Role: Primary Care Provider Address: Address: [address] [place] [id number] [place] Care Team Related Persons Name: AMBERLY LANCASTER Address: home [address] [place], [place] [id number]
--- OUTSIDE RECORDS SUMMARY | 2023-07-19 13:13 | External Medical Summary | Summary of Care ---
Author Name Unknown Organization [facility] Address [address] [place] [address] Phone [phone] Care Team Providers Care Account Installer Name Role Phone Dawson CALDERON MD, Arpit Arevalo Primary Care Provider [phone] Encounter Details Date Type Department Care Team Description [facility] [address] [place] [address] Shelby Estrella MD [address] [place] [address] No Show for psych appt* Allergies Active Allergy Reactions Severity Noted Date [...] as of this encounter (statuses as of 04/09/2023) Medications Medication Sig Dispensed Refills Start Date [...] 12/24/2017 Active triamcinolone acetonide (ARISTOCORT) 0.1 % creamIndications:Ecz evans of external ear, bilateral Apply topically to affected area 2 times a day. To affected area. 15 g 5 06/24/2018 Active Diclofenac Sodium 1 % gel Apply 2 g topically to affected area 4 times a day. 1 Tube 11 05/26/2019 Active Albuterol Sulfate (ALBUTEROL HFA) 108 (90 BASE) MCG/ACT inhalerIndications:W heezing Inhale 2 Puffs by mouth 4 times a day. 18 g 3 01/04/2020 Active Omeprazole 20 MG Oral Capsule Delayed Release (PriLOSEC) TAKE 1 CAPSULE BY MOUTH TWICE A DAY 180 Capsule 0 10/13/2021 Active Polyethylene Glycol 3350 17 GM/SCOOP Oral Powder (MiraLax)Indications :Closed fracture of tibial plateau with routine healing, unspecified laterality, subsequent encounter,Nondisplac ed physeal fracture of distal end of right radius with routine healing, subsequent encounter Take by mouth 17 g daily as needed for Constipation. Dissolve one heaping tablespoon in 8 ounces of water or juice. 225 g 3 02/02/2022 Active Lidocaine 5 % External Patch (Lidoderm)Indication s:Closed fracture of left tibial plateau, initial encounter Place topically on the skin 1 Patch daily as needed for Pain, Moderate. 30 Patch 0 02/14/2022 Active Ferrous Sulfate 325 (65 Fe) MG Oral Tablet (Feosol) TAKE 1 TABLET BY MOUTH TWICE A DAY 180 Tablet 0 03/19/2022 Active oxyCODONE HCl 5 MG Oral Tablet (Oxy IR)Indications:Close d fracture of tibial plateau with routine healing, unspecified laterality, subsequent encounter,Nondisplac ed physeal fracture of distal end of right radius with routine healing, subsequent encounter Take 0.5 Tablets (2.5 mg) by mouth every 8 hours as needed for Pain, Severe. Max daily dose of 1.5 tabs/day. Do not start before June 11, 2022. 21 Tablet 0 06/11/2022 Active Ondansetron 8 MG Oral Tablet Disintegrating (Zofran)Indications: Nausea Place 1 Tablet on tongue every 8 hours as needed for Nausea. dissolve on tongue. 18 Tablet 3 09/07/2022 Active predniSONE 5 MG Oral Tablet (Deltasone)Indicatio ns:Primary osteoarthritis of both knees,Myalgia Take 1 Tablet by mouth in the morning. 30 Tablet 3 09/07/2022 Active Levothyroxine Sodium 50 MCG Oral Tablet (Levoxyl) take 1 tablet by mouth once daily 90 Tablet 0 01/30/2023 Active Furosemide 20 MG Oral Tablet (Lasix) Take 1 Tablet by mouth in the morning. 30 Tablet 11 01/29/2023 Active Gabapentin 300 MG Oral Capsule (Neurontin)Indicatio ns:Heart's esophagus Take 1 Capsule by mouth in the morning and 1 Capsule at noon and 1 Capsule in the evening and 1 Capsule before bedtime. 360 Capsule 0 02/08/2023 Active DULoxetine HCl 60 MG Oral Capsule Delayed Release Particles (Cymbalta) Take 1 Capsule by mouth in the morning and 1 Capsule before bedtime. 60 Capsule 3 03/05/2023 Active lamoTRIgine 150 MG Oral Tablet (LaMICtal) Take 1 Tablet by mouth in the morning and 1 Tablet before bedtime. 60 Tablet 3 03/05/2023 Active Topiramate 100 MG Oral Tablet (topAMAX) Take 2 Tablets by mouth at bedtime. 60 Tablet 3 03/05/2023 Active Metaxalone 800 MG Oral Tablet (Skelaxin)Indication s:Spasm of muscle take 1 tablet by mouth four times a day 40 Tablet 5 03/10/2023 Active Losartan Potassium 50 MG Oral Tablet (Cozaar)Indications: HTN, goal below 140/90 TAKE 1 TABLET BY MOUTH EVERY DAY 90 Tablet 1 03/25/2023 Active Hospital, Clinic, or Other Facility Administered Medication Ordered Dose Route Frequency Start Date End Date Status ketorolac (TORADOL) 60 MG/2ML IM inj 60 mgIndications:Fibromyalgia 60 mg IM MTH 02/29/2020 Active documented as of this encounter (statuses as of 04/09/2023) Active Problems Problem Noted Date Insomnia 12/01/2022 [...] as of this encounter (statuses as of 04/09/2023) Resolved Problems Problem Noted Date Resolved Date Bipolar 1 disorder, depressed, severe 10/25/2017 11/11/2022 Bipolar depression 07/08/2017 10/25/2017 Myalgia and myositis 06/30/2010 10/12/2016 HYPERTENSION NOS 11/27/2005 06/06/2009 Overview: Modified per HTN protocol #16. Major depressive disorder 08/08/20022016 Overview: ICD-10 update of inactive term CKD (chronic kidney disease), stage III 11/28/2020 documented as of this encounter (statuses as of 04/09/2023) Immunizations Name Administration Dates Next Due COVID-19 mRNA, LNP-s, No Pre serve, 2-Dose Series (Pfizer) 05/27/2021,10/17/2020,09/26/2020 Pneumococcal Conjugate Vacci ne, 20-valent ([id number]) 03/04/2022 Pneumococcal Polysaccharide PPV23 (Pneumovax) 06/15/2020,08/06/2010 Seasonal Influenza Virus Vac cine, Unspecified Formulation 05/27/2021,06/15/2020 Seasonal Influenza, PF, 6 mo ns & Above, IM , (Flulaval) 08/15/2018,07/08/2017 Seasonal Influenza, Quadriva lent Hd (Fluzone [...] pur e alcohol) very occasional per paitent Food Insecurity Answer Date Recorded Within the [...] on file documented as of this encounter Progress Notes * Shelby Estrella MD - 04/09/2023 3:20 PM EDT Patient failed to keep appointment. documented in this encounter Plan of Treatment Health Maintenance Due Date Last Done Comments Cologuard 1999 Sigmoidoscopy 1999 Fecal Occult Blood Test 08/08/2003 08/08/2002 Mammogram 09/27/2003 09/26/2002 Hepatitis B (1 of 3 - Risk 3-dose series) 2014 Albumin/Creatinine Ratio 09/11/2015 09/11/2014 Depression Screening 08/09/2018 08/09/2017 Zoster Vaccines (3 of 3) 02/29/2020 01/04/2020, 11/16 COVID-19 Vaccine (4 - Pfizer series) 07/22/2021 05/27/2021, 10/17/2020, 09/26/2020 CKD PHOS USE SMARTSET 85135 11/26/2022 11/26/2021, 1 TSH 01/14/2023 01/14/2022, 11/16, 12/16/2019, Additional history exists CKD HGB USE SMARTSET 20190 01/22/202301/22, 01/16/2022, 01/10/2022, Additional history exists Influenza Vaccine (FLU shot) (#1) 2023 04/20/2022, 05/27/2021, 06/15/2020, Additional history exists GFR 04/27/2023 10/26/2022 (Done [...] as of this encounter Visit Diagnoses Diagnosis No Show for psych appt- Primary documented in this encounter Care Teams Account Installer Relationship Specialty Start Date End Date Arpit Osman III, MD [address] [place] [address] PCP - General 02/09/02 documented as of this encounter
--- OUTSIDE RECORDS SUMMARY | 2023-07-19 13:13 | External Medical Summary | Summary of Care ---
Author Name Unknown Organization [facility] Address [address] [place] [address] Phone [phone] Care Team Providers Care Basketball Commentator Name Role Phone Dawson CALDERON MD, Juancarlos Arevalo Primary Care Provider [phone] Reason for Visit * Reason Onset Date Comments Medication Refill 02/07/2023 Encounter Details Date Type Department Care Team Description 02/07/2023 Refill Family Practice [facility] [address] [facility] [place] [address] Juancarlos Granda III, MD [address] [place] [address] Heart's esophagus Allergies Active Allergy Reactions Severity Noted Date [...] as of this encounter (statuses as of 02/08/2023) Medications Medication Sig Dispensed Refills Start Date [...] the morning. 30 Tablet 3 09/07/2022 Active Losartan Potassium 50 MG Oral Tablet (Cozaar) TAKE 1 TABLET BY MOUTH EVERY DAY 90 Tablet 1 10/05/2022 Active Metaxalone 800 MG Oral Tablet (Skelaxin)Indicatio ns:Spasm of muscle take 1 tablet by mouth four times a day 40 Tablet 5 01/20/2023 Active Levothyroxine Sodium 50 MCG Oral Tablet (Levoxyl) take 1 tablet by mouth once daily 90 Tablet 0 01/30/2023 Active DULoxetine HCl 60 MG Oral Capsule Delayed Release Particles (Cymbalta) Take 1 Capsule by mouth in the morning and 1 Capsule before bedtime. 60 Capsule 3 01/28/2023 Active lamoTRIgine 150 MG Oral Tablet (LaMICtal) Take 1 Tablet by mouth in the morning and 1 Tablet before bedtime. 60 Tablet 3 01/28/2023 Active Topiramate 100 MG Oral Tablet (topAMAX) Take 2 Tablets by mouth at bedtime. 60 Tablet 3 01/28/2023 Active Furosemide 20 MG Oral Tablet (Lasix) Take 1 Tablet by mouth in the morning. 30 Tablet 11 01/29/2023 Active Gabapentin 300 MG Oral Capsule (Neurontin)Indicati ons:Heart's esophagus Take 1 Capsule by mouth in the morning and 1 Capsule at noon and 1 Capsule in the evening and 1 Capsule before bedtime. 360 Capsule 0 02/08/2023 Active Gabapentin 300 MG Oral Capsule (Neurontin)Indicati ons:Heart's esophagus Take 1 Capsule by mouth in the morning and 1 Capsule at noon and 1 Capsule in the evening and 1 Capsule before bedtime. 360 Capsule 0 10/20/2022 3 Discontinu ed(Refill) Hospital, Clinic, or Other Facility Administered Medication Ordered Dose Route Frequency Start Date End Date Status ketorolac (TORADOL) 60 MG/2ML IM inj 60 mgIndications:Fibromyalgia 60 mg IM MTH 02/29/2020 Active documented as of this encounter (statuses as of 02/08/2023) Active Problems Problem Noted Date Insomnia 12/01/2022 [...] as of this encounter (statuses as of 02/08/2023) Resolved Problems Problem Noted Date Resolved Date Bipolar 1 disorder, depressed, severe 10/25/2017 11/11/2022 Bipolar depression 07/08/2017 10/25/2017 Myalgia and myositis 06/30/2010 10/12/2016 HYPERTENSION NOS 11/27/2005 06/06/2009 Overview: Modified per HTN protocol #16. Major depressive disorder 08/08/20022016 Overview: ICD-10 update of inactive term CKD (chronic kidney disease), stage III 11/28/2020 documented as of this encounter (statuses as of 02/08/2023) Immunizations Name Administration Dates Next Due COVID-19 mRNA, LNP-s, No Pre serve, 2-Dose Series (Pfizer) 05/27/2021,10/17/2020,09/26/2020 Pneumococcal Conjugate Vacci ne, 20-valent ([id number]) 03/04/2022 Pneumococcal Polysaccharide PPV23 (Pneumovax) 06/15/2020,08/06/2010 Seasonal Influenza Virus Vac cine, Unspecified Formulation 05/27/2021,06/15/2020 Seasonal Influenza, Quadriva lent Hd (Fluzone Hd) 04/20/2022 Seasonal Influenza, Quadriva lent, No Preserve, 6 Mons & Above, IM 08/15/2018,07/08/2017 Seasonal Influenza, Quadriva lent,with Preserve, 3 yr [...] pur e alcohol) very occasional per nishanttent Food Insecurity Answer Date Recorded Within the [...] Encounter - Juancarlos Granda III, MD - 02/08/2023 1:29 PM EDTSigned Prescriptions: Disp Refills Gabapentin 300 MG Oral Capsule (Neurontin) 360 Ca*0 Sig: Take 1Capsule by mouth in the morning and 1 Capsule at noon and 1 Capsule in the evening and 1 Capsule before bedtime.Authorizing Provider: JUANCARLOS GRANDA III * Telephone Encounter - Clementina Whyte LPN - 02/08/2023 12:50 PM EDT Pending Prescriptions: Disp Refills Gabapentin 300 MG Oral Capsule (Neurontin) 360 Ca*0 Sig: Take 1 Capsule by mouth in the morning and 1 Capsule at noon and 1 Capsule in the evening and 1 Capsule before bedtime. * Telephone Encounter - Clementina Whyte LPN - 02/08/2023 12:49 PM EDT Pending Prescriptions: Disp Refills Gabapentin 300 MG Oral Capsule (Neurontin)360 Ca*0 Sig: Take 1 Capsule by mouth in the morning and 1 Capsule at noon and 1 Capsule in the evening and 1 Capsule before bedtime. Last Visit: 11/03/2022 (in office), 01/29/2023 (telemedicine) Next Visit: Visit date not found Last date the medication was ordered: 10/20/2022 Patient Active Problem List Diagnosis Code Pain [...] overdose (HCC) T50.902A TERMINATED MEDICATION USAGE AGREEMENT [id number] Major depressive disorder, recurrent episode, moderate (HCC) [...] 03:35 PM * Telephone Encounter - [facility] - 02/07/2023 6:44 PM EDTPending Prescriptions: Disp Refills Gabapentin 300 MG Oral Capsule (Neurontin) 360 Ca*0 Sig: Take 1Capsule by mouth in the morning and 1 Capsule at noon and 1 Capsule in the evening and 1 Capsule before bedtime. documented in this encounter Plan of Treatment Upcoming Encounters Date Type Specialty Care Team Description 03/05/2023 Telemedicine Psychiatry Shelby Estrella MD [address] [facility] [place] [id number] Health Maintenance Due Date Last Done Comments Cologuard 1999 Sigmoidoscopy 1999 Fecal Occult Blood Test 08/08/2003 08/08/2002 Mammogram 09/27/2003 09/26/2002 Hepatitis B (1 of 3 - Risk 3-dose series) 2014 Albumin/Creatinine Ratio 09/11/2015 09/11/2014 Depression Screening, Annual for Pts 12 and Over 08/09/2018 08/09/2017 Zoster Vaccines (3 of 3) 02/29/2020 01/04/2020, 11/16 COVID-19 Vaccine (4 - Pfizer series) 07/22/2021 05/27/2021, 10/17/2020, 09/26/2020 CKD PHOS USE SMARTSET 85479 11/26/2022 11/26/2021, 1 TSH 01/14/2023 01/14/2022, 11/16, 12/16/2019, Additional history exists CKD HGB USE SMARTSET 01132 01/22/202301/22, 01/16/2022, 01/10/2022, Additional history exists Influenza [...] esophagus documented in this encounter Care Teams Basketball Commentator Relationship Specialty Start Date End Date Juancarlos Granda III, MD [address] [facility] [place] [address] PCP - General 02/09/02 documented as of this encounter
--- OUTSIDE RECORDS SUMMARY | 2023-07-19 13:13 | External Medical Summary | Summary of Care ---
Author Name Unknown Organization [facility] Address [address] [place] [address] Phone [phone] Care Team Providers Care Correctional Manager Name Role Phone Dawson CALDERON MD, Aript Arevalo Primary Care Provider [phone] Reason for Visit * Reason Onset Date Comments Forms Request 01/28/2023 Encounter Details Date Type Department Care Team Description 01/28/2023 Telephone Family Practice [facility] [address] [facility] [place] [id number] Arpit Osman III, MD [address] [place] [address] Forms Request Allergies Active Allergy Reactions Severity Noted Date [...] as of this encounter (statuses as of 01/28/2023) Medications Medication Sig Dispensed Refills Start Date [...] 11, 2022. 21 Tablet 0 06/11/2022 Active Levothyroxine Sodium 50 MCG Oral Tablet (Levoxyl) take 1 tablet by mouth once daily 90 Tablet 1 08/08/2022 Active Ondansetron 8 MG Oral Tablet Disintegrating [...] EVERY DAY 90 Tablet 1 10/05/2022 Active Gabapentin 300 MG Oral Capsule (Neurontin)Indicatio ns:Heart's esophagus Take 1 Capsule by mouth in the morning and 1 Capsule at noon and 1 Capsule in the evening and 1 Capsule before bedtime. 360 Capsule 0 10/20/2022 Active Metaxalone 800 MG Oral Tablet (Skelaxin)Indication s:Spasm of muscle take 1 tablet by mouth four times a day 40 Tablet 5 01/20/2023 Active DULoxetine HCl 60 MG Oral Capsule [...] at bedtime. 60 Tablet 3 01/28/2023 Active Hospital, Clinic, or Other Facility Administered Medication Ordered Dose Route Frequency Start Date End Date Status ketorolac (TORADOL) 60 MG/2ML IM inj 60 mgIndications:Fibromyalgia 60 mg IM MTH 02/29/2020 Active documented as of this encounter (statuses as of 01/28/2023) Active Problems Problem Noted Date Insomnia 12/01/2022 [...] as of this encounter (statuses as of 01/28/2023) Resolved Problems Problem Noted Date Resolved Date Bipolar 1 disorder, depressed, severe 10/25/2017 11/11/2022 Bipolar depression 07/08/2017 10/25/2017 Myalgia and myositis 06/30/2010 10/12/2016 HYPERTENSION NOS 11/27/2005 06/06/2009 Overview: Modified per HTN protocol #16. Major depressive disorder 08/08/20022016 Overview: ICD-10 update of inactive term CKD (chronic kidney disease), stage III 11/28/2020 documented as of this encounter (statuses as of 01/28/2023) Immunizations Name Administration Dates Next Due COVID-19 mRNA, LNP-s, No Pre serve, 2-Dose Series (Pfizer) 05/27/2021,10/17/2020,09/26/2020 Pneumococcal Conjugate Vacci ne, 20-valent ([id number]) 03/04/2022 Pneumococcal Polysaccharide PPV23 (Pneumovax) 06/15/2020,08/06/2010 Seasonal [...] encounter Miscellaneous Notes * Telephone Encounter - Steffi Mcclendon RN - 01/28/2023 3:16 PM EDT . * Telephone Encounter - Steffi Mcclendon RN - 01/28/2023 2:21 PM EDT Provider to address: Medication Reason for Call: Forms Request Contact: Letter Contact Type: Medication Outcome: Taty from [facility] says pt broke her hip on 12/04/22 while in [facility]. Went to [facility] for hip replacement. Went back to [facility] on 12/15/22 from hospital after breaking her hip. Dr. Chaves started seeing her on 12/18/22. Pt started his script on 12/25/22. Was giving it to her every [address] Chaves has been writing her scripts for her but he thought she was leaving this month but sheis still there so Dr. Chaves no longer feels comfortable filling her morphine anymore. He told this to Brandon. Taty says pt can walk out to nurse's station but will not walk into bathroom. Dr. Chaves's last script for morphine ir 15mg every 4 to 6 hours. Written 01/23/23, #40. Pt startednew bottle on 01/24/23. Currently pt has 21 pills left. Taty says Dr. Chaves writes his notes in pt's chart in his office. . . They have limited hours. Office hours are Mon - Fri 9 to 1. His nurse's name is Taisha. Left message on his phone to fax over notes. Dr. Osman aware of above information. He wants to have a televideo appt with pt on 01/29/23 at 1pm. Informed pt who is agreeable. Appt made. Total Time including non face to face (minutes): 60+ * Telephone Encounter - KULDEEP Palacios - 01/28/2023 1:06 PM EDT Patient has dropped off forms that need to be completed OTILIO, dropped off on 01-28-2023. Would like to be contacted at [phone] As soon as completed. documented in this encounter Plan of Treatment Upcoming Encounters Date Type Specialty Care Team Description 01/29/2023 Office Visit Family Medicine Dawsonchente CALDERON, Arpit Arevalo MD [address] [place] [address] 03/05/2023 Telemedicine Psychiatry Shelby Estrella MD [address] [place] [address] Health Maintenance Due Date Last Done [...] 05/27/2021, 10/17/2020, 09/26/2020 CKD PHOS USE SMARTSET [id number] 11/26/2022 11/26/2021, 1 TSH 01/14/2023 01/14/2022, 11/16, 12/16/2019, Additional history exists CKD HGB USE SMARTSET 93253 01/22/202301/22, 01/16/2022, 01/10/2022, Additional history exists Influenza [...] 11/26/2026 11/26/2021, 11/16, 05/18/2018, Additional history exists ABDOMINAL AORTIC ANEURYSM (AAA) SCREENING Completed 07/14/2010 Pneumococcal Vaccine: 65+ Years Completed 03/04/2022, 06/15/2020, 08/06/2010 GARDASIL-HPV IMMUNIZATION SERIES Aged Out No longer eligible based on patient's age to complete this topic MENINGOCOCCAL (MENACTRA/MENVEO) Aged Out No longer eligible based on patient's age to complete this topic documented as of this encounter Medical Devices Not on filedocumented as of this encounter Care Teams Correctional Manager Relationship Specialty Start Date End Date Arpit Osman III, MD [address] [place] [address] PCP - General 02/09/02 documented as of this encounter
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
--- OUTSIDE RECORDS SUMMARY | 2023-07-19 13:13 | External Medical Summary | Summary of Care ---
Author Name Unknown Organization [facility] Address [address] [place] [address] Phone [phone] Care Team Providers Care Sales Operations Specialist Name Role Phone Dawson CALDERON MD, Arpit Arevalo Primary Care Provider [phone] Reason for Visit * Reason Onset Date Comments Medication Management 01/29/2023 Medication Use Agreement Advice 01/29/2023 [facility] Encounter Details Date Type Department Care Team Description 01/29/2023 Telephone Family Practice [facility] [address] [facility] [place] [id number] Arpit Osman III, MD [address] [place] [address] Medication Management (Medication Use Agre... Allergies Active Allergy Reactions Severity Noted Date [...] as of this encounter (statuses as of 01/29/2023) Medications Medication Sig Dispensed Refills Start Date [...] as of this encounter (statuses as of 01/29/2023) Active Problems Problem Noted Date Insomnia 12/01/2022 [...] as of this encounter (statuses as of 01/29/2023) Resolved Problems Problem Noted Date Resolved Date Bipolar 1 disorder, depressed, severe 10/25/2017 11/11/2022 Bipolar depression 07/08/2017 10/25/2017 Myalgia and myositis 06/30/2010 10/12/2016 HYPERTENSION NOS 11/27/2005 06/06/2009 Overview: Modified per HTN protocol #16. Major depressive disorder 08/08/20022016 Overview: ICD-10 update of inactive term CKD (chronic kidney disease), stage III 11/28/2020 documented as of this encounter (statuses as of 01/29/2023) Immunizations Name Administration Dates Next Due COVID-19 mRNA, LNP-s, No Pre serve, 2-Dose Series (Pfizer) 05/27/2021,10/17/2020,09/26/2020 Pneumococcal Conjugate Vacci ne, 20-valent ([id number]) 03/04/2022 Pneumococcal Polysaccharide PPV23 (Pneumovax) 06/15/2020,08/06/2010 Seasonal [...] encounter Miscellaneous Notes * Telephone Encounter - Debra Guan, MED ASSIST - 01/29/2023 12:34 PM EDT Letter received from Brandon. Copy provided to Dr. Osman and one placed in the scan bin. I called and left a message for Kerline. I called and spoke with Brandon. Brandon states that he is appalled and has in writing that her video appointment for this afternoon would be cancelled if she didn't sign and fax back her med use agreement. I explained to Brandon thatI was the one who sent that fax that simply stated "please have Kerline review, sign and fax back prior to her 1 pm appointment." In no way was anyone at [facility] refusing Kerline's [address] Osman today. Brandon states that the med use agreement from 2019, that wasn't even signed, has been held against her so egregiously. At this point, I asked Brandon if I could interrupt him and explained that I am not a provider and that is a question for Dr. Osman during the video appointment. Brandon then asked why Dr. Osman is requiring a med use agreement when the other 3 doctors who have prescribed it haven't. I explained that is a discussion that they should have with Dr. Osman becauseI am not able to answer for him. We closed the call with Brandon expressing understanding that the medication use agreement, if she is going to sign it, must be faxed to us within 10 minuets of her appointment ending. Dr. Osman isn'tto be in the office this afternoon but made the exception for Kerline. If the agreement isn't received, Dr. Osman will not prescribed the morphine taper until he returns to the office on [place]. * Telephone Encounter - Debra Guan MED ASSIST - 01/29/2023 10:48 AM EDT Provider to address: Not signing med use agreement until appointment Reason for Call: Medication Management (Medication Use Agreement) and Advice ([facility]) Contact: Telephone Call Contact Type: Medication Outcome: Attempted patient cell and left message. Spoke with Taty at [facility] who relayed the message to Kerline that without the signed agreement she will not receive her medication. Kerline told Taty that she and Brandon are going to formulate a letter of some kind. Total Time including non face to face (minutes): 90 mins * Telephone Encounter - KULDEEP Joseph - 01/29/2023 10:34 AM EDT Jesenia from [facility] states that Pt will not sign until she has appt Also Jesenia wanted to provide the correct contact info for the office [phone] * Telephone Encounter - Debra Guan MED ASSIST - 01/29/2023 9:30 AM EDT Provider to address: Med Use agreement Reason for Call: Medication Management (Medication Use Agreement) Contact: Telephone Call Contact Type: Medication Outcome: Spoke with Taty at [facility]. She confirms that she received our fax, provided it to Kerline and told her that she needed to read, sign it and give it back to Taty so Taty couldfax it back Total Time including non face to face (minutes): 5 * Telephone Encounter - Debra Guan MED ASSIST - 01/29/2023 8:47 AM EDT Provider to address: Med use agreement Reason for Call: No chief complaint on file. Contact: Letter Contact Type: Medication Outcome: Per Dr. Osman, Medication Use agreement was faxed successfully to [facility] ([phone]) for Kerline to review, sign and fax back prior to her 1 pm visit today with Dr. sOman. Total Time including non face to face (minutes): 10 documented in this encounter Plan of Treatment Upcoming Encounters Date Type Specialty Care Team Description 03/05/2023 Telemedicine Psychiatry Shelby Estrella MD [address] [place] [address] Health Maintenance Due Date Last [...] 05/27/2021, 10/17/2020, 09/26/2020 CKD PHOS USE SMARTSET 97558 11/26/2022 11/26/2021, 1 TSH 01/14/2023 01/14/2022, 11/16, 12/16/2019, Additional history exists CKD HGB USE SMARTSET 20064 01/22/202301/22, 01/16/2022, 01/10/2022, Additional history exists Influenza [...] filedocumented as of this encounter Care Teams Sales Operations Specialist Relationship Specialty Start Date End Date Arpit Osman III, MD [address] [place] [address] PCP - General 02/09/02 documented as of this encounter
--- OUTSIDE RECORDS SUMMARY | 2023-07-19 13:13 | External Medical Summary | Summary of Care ---
Author Name Unknown Organization [facility] Address [address] [place] [address] Phone [phone] Care Team Providers Care Imaging Nurse Name Role Phone Dawson CALDERON MD, Juancarlos Arevalo Primary Care Provider [phone] Reason for Visit * Reason Comments eRx-Medication Refill Encounter Details Date Type Department Care Team Description 01/26/2023 Refill Family Practice [facility] [address] [facility] [place] [id number] Juancarlos Granda III, MD [address] [facility] [place] [phone] Encounter for long-term (current) use of medications* Allergies Active Allergy Reactions Severity Noted Date [...] as of this encounter (statuses as of 01/30/2023) Medications Medication Sig Dispensed Refills Start Date [...] the morning. 30 Tablet 3 3 Active Losartan Potassium 50 MG Oral Tablet (Cozaar) TAKE 1 TABLET BY MOUTH EVERY DAY 90 Tablet 1 3 Active Gabapentin 300 MG Oral Capsule (Neurontin)Indicat ions:Heart's esophagus Take 1 Capsule by mouth in the morning and 1 Capsule at noon and 1 Capsule in the evening and 1 Capsule before bedtime. 360 Capsule 0 3 Active Metaxalone 800 MG Oral Tablet (Skelaxin)Indicati ons:Spasm of muscle take 1 tablet by mouth four times a day 40 Tablet 5 3 Active Levothyroxine Sodium 50 MCG Oral Tablet (Levoxyl) take 1 tablet by mouth once daily 90 Tablet 0 3 Active Levothyroxine Sodium 50 MCG Oral Tablet (Levoxyl) take 1 tablet by mouth once daily 90 Tablet 1 3 01/29/20 23 Discontinued DULoxetine HCl 60 MG Oral Capsule Delayed Release Particles (Cymbalta) Take 1 Capsule by mouth in the morning and 1 Capsule before bedtime. 60 Capsule 2 3 01/29/20 23 Discontinued(Re fill) lamoTRIgine 150 MG Oral Tablet (LaMICtal) Take 1 Tablet by mouth in the morning and 1 Tablet before bedtime. 60 Tablet 2 3 01/29/20 23 Discontinued(Re fill) Topiramate 100 MG Oral Tablet (topAMAX) Take 2 Tablets by mouth at bedtime. 60 Tablet 2 3 01/29/20 23 Discontinued(Re fill) Hospital, Clinic, or Other Facility Administered Medication Ordered Dose Route Frequency Start Date End Date Status ketorolac (TORADOL) 60 MG/2ML IM inj 60 mgIndications:Fibromyalgia 60 mg IM MTH 02/29/2020 Active documented as of this encounter (statuses as of 01/30/2023) Active Problems Problem Noted Date Insomnia 12/01/2022 [...] as of this encounter (statuses as of 01/30/2023) Resolved Problems Problem Noted Date Resolved Date Bipolar 1 disorder, depressed, severe 10/25/2017 11/11/2022 Bipolar depression 07/08/2017 10/25/2017 Myalgia and myositis 06/30/2010 10/12/2016 HYPERTENSION NOS 11/27/2005 06/06/2009 Overview: Modified per HTN protocol #16. Major depressive disorder 08/08/20022016 Overview: ICD-10 update of inactive term CKD (chronic kidney disease), stage III 11/28/2020 documented as of this encounter (statuses as of 01/30/2023) Immunizations Name Administration Dates Next Due COVID-19 mRNA, LNP-s, No Pre serve, 2-Dose Series (Pfizer) 05/27/2021,10/17/2020,09/26/2020 Pneumococcal Conjugate Vacci ne, 20-valent ([id number]) 03/04/2022 Pneumococcal Polysaccharide PPV23 (Pneumovax) 06/15/2020,08/06/2010 Seasonal [...] Encounter - Juancarlos Granda III, MD - 01/30/2023 9:59 AM EDTSigned Prescriptions: Disp Refills Levothyroxine Sodium 50 MCG Oral Tablet (L*90 Tab*0 Sig: take 1tablet by mouth once dailyAuthorizing Provider: JUANCARLOS GRANDA III * Telephone Encounter - Debra Urias CPhT - 01/28/2023 2:51 PM EDTPending Prescriptions: Disp Refills Levothyroxine Sodium 50 MCG Oral Tablet (L*90 Tab*0 Sig: take 1 tablet by mouth once daily * Telephone Encounter - Debra Urias CPhT - 01/28/2023 2:50 PM EDT Received message from [facility] regarding patient needing labs. Placed call to patient to advise. Pt was agreeable to set up appointment but did not want to schedule at this time. Patient advised they willcall back to set up appointment. Thank you, Debra Urias CPhT [employer] [facility] ( [facility]) 01/28/2023,2:50 PM * Telephone Encounter - Inessa Shah [facility] - 01/28/2023 12:48 PM EDTPending Prescriptions: Disp Refills Levothyroxine Sodium 50 MCG Oral Tablet (L*90 Tab*0 Sig: take 1 tablet by mouth once daily * Telephone Encounter - Inessa Shah [facility] - 01/28/2023 12:45 PM EDT Unable to authorize medication refills for pended medication(s) at this time. Per refill protocol patient should have routine exam and TSH on file within past year. Reviewed AMP report, Care Gaps/Health Maintenance, medications list, and for any routine labs typically ordered for this patient. Lab orders placed. Please contact patient to advise of labs ordered for blood draw AND URINE specimen (patient will have to be able to void to provide sample). Fasting is not required. Advise to obtain labs within the next month. After contacting patient, please forward request to Juancarlos Granda III, MD. Thank You, Inessa Shah [facility] Clinical Pharmacist [facility] ([facility] ([facility] [employer] [employer]) [phone] 01/28/2023, 12:47 PM documented in this encounter Plan of Treatment Upcoming Encounters Date Type Specialty Care Team Description 03/05/2023 Telemedicine Psychiatry Shelby Estrella MD [address] [place] [facility] [place] [address] Scheduled Orders Name Type Priority Associated Diagnoses Orde r Schedule TSH Lab Routine Encounter for long-term (current) use of medications Expected: 01/28/2023 (Approximate), Expires: 01/29/2024 CBC Lab Routine Encounter for long-term (current) use of medications Expected: 01/28/2023 (Approximate), Expires: 01/29/2024 Health Maintenance Due Date Last Done Comments [...] 05/27/2021, 10/17/2020, 09/26/2020 CKD PHOS USE SMARTSET 27094 11/26/2022 11/26/2021, 1 TSH 01/14/2023 01/14/2022, 11/16, 12/16/2019, Additional history exists CKD HGB USE SMARTSET 07106 01/22/202301/22, 01/16/2022, 01/10/2022, Additional history exists Influenza [...] for long-term (current) use of other medications documented in this encounter Care Teams Imaging Nurse Relationship Specialty Start Date End Date Juancarlos Granda III, MD [address] [place] [address] PCP - General 02/09/02 documented as of this encounter
--- OUTSIDE RECORDS SUMMARY | 2023-07-19 13:13 | External Medical Summary | Summary of Care ---
Author Name Unknown Organization [facility] Address [address] [place] [address] Phone [phone] Care Team Providers Care Superintendent Circus Name Role Phone Dawson CALDERON MD, Arpit Arevalo Primary Care Provider [phone] Reason for Visit * Reason Comments eRx-Medication Refill Encounter Details Date Type Department Care Team Description 03/10/2023 Refill Family Practice [facility] [address] [facility] [place] [id number] Arpit Osman III, MD [address] [place] [address] Spasm of muscle Allergies Active Allergy Reactions [...] as of this encounter (statuses as of 03/10/2023) Medications Medication Sig Dispensed Refills Start Date [...] EVERY DAY 90 Tablet 1 3 Active Levothyroxine Sodium 50 MCG Oral Tablet (Levoxyl) take 1 tablet by mouth once daily 90 Tablet 0 3 Active Furosemide 20 MG Oral Tablet (Lasix) Take 1 Tablet by mouth in the morning. 30 Tablet 11 3 Active Gabapentin 300 MG Oral Capsule (Neurontin)Indicati ons:Heart's esophagus Take 1 Capsule by mouth in the morning and 1 Capsule at noon and 1 Capsule in the evening and 1 Capsule before bedtime. 360 Capsule 0 3 Active DULoxetine HCl 60 MG Oral Capsule Delayed Release Particles (Cymbalta) Take 1 Capsule by mouth in the morning and 1 Capsule before bedtime. 60 Capsule 3 3 Active lamoTRIgine 150 MG Oral Tablet (LaMICtal) Take 1 Tablet by mouth in the morning and 1 Tablet before bedtime. 60 Tablet 3 3 Active Topiramate 100 MG Oral Tablet (topAMAX) Take 2 Tablets by mouth at bedtime. 60 Tablet 3 3 Active Metaxalone 800 MG Oral Tablet (Skelaxin)Indicatio ns:Spasm of muscle take 1 tablet by mouth four times a day 40 Tablet 5 3 Active Metaxalone 800 MG Oral Tablet (Skelaxin)Indicatio ns:Spasm of muscle take 1 tablet by mouth four times a day 40 Tablet 5 3 03/10/20 Discontinued Hospital, Clinic, or Other Facility Administered Medication Ordered Dose Route Frequency Start Date End Date Status ketorolac (TORADOL) 60 MG/2ML IM inj 60 mgIndications:Fibromyalgia 60 mg IM MTH 02/29/2020 Active documented as of this encounter (statuses as of 03/10/2023) Active Problems Problem Noted Date Insomnia 12/01/2022 [...] as of this encounter (statuses as of 03/10/2023) Resolved Problems Problem Noted Date Resolved Date Bipolar 1 disorder, depressed, severe 10/25/2017 11/11/2022 Bipolar depression 07/08/2017 10/25/2017 Myalgia and myositis 06/30/2010 10/12/2016 HYPERTENSION NOS 11/27/2005 06/06/2009 Overview: Modified per HTN protocol #16. Major depressive disorder 08/08/20022016 Overview: ICD-10 update of inactive term CKD (chronic kidney disease), stage III 11/28/2020 documented as of this encounter (statuses as of 03/10/2023) Immunizations Name Administration Dates Next Due COVID-19 mRNA, LNP-s, No Pre serve, 2-Dose Series (Pfizer) 05/27/2021,10/17/2020,09/26/2020 Pneumococcal Conjugate Vacci ne, 20-valent ([id number]) 03/04/2022 Pneumococcal Polysaccharide PPV23 (Pneumovax) 06/15/2020,08/06/2010 Seasonal [...] Telephone Encounter - Dami Gomes DO - 03/10/2023 4:43 PM EDTSigned Prescriptions: Disp Refills Metaxalone 800 MG Oral Tablet (Skelaxin) 40 Tab*5 Sig: take 1 tablet by mouth four times a day Authorizing Provider: DAMI GOMES * Telephone Encounter - [facility] - 03/10/2023 4:24 PM EDTPending Prescriptions: Disp Refills Metaxalone 800 MG Oral Tablet [Pharmacy Me*40 Tab*5 Sig: take 1 tablet by mouth four times a day * Telephone Encounter - [facility] - 03/10/2023 4:24 PM EDT Pending Prescriptions: Disp Refills Metaxalone 800 MG Oral Tablet [Pharmacy Me*40 Tab*5 Sig: take 1 tablet by mouth four times a day 11/03/2022 (in office), 01/29/2023 (telemedicine) Visit date not found If no future appointments scheduled, and last appointment is greater than a year ago, please schedule patient for a follow-up appointment Last date the medication was ordered: 01/20/23 Pharmacy: [facility] #[id number] Is this request for a controlled substance?No Urine Drug Screen: Results for orders placed or performed in visit on 04/20/22 PAIN MANAGEMENT DRUG PANEL, URINE W/ INTERPRETATION Result Value Compliance Interpretation Based on the medication information provided: The positive oxycodone screening result is CONSISTENT with oxycodone use. Confirmatory testing is available upon request. The presence of THC metabolite is INCONSISTENT with the information provided. Amphetamine Negative Benzodiazepines Negative Cannabinoids Refer to confirmation results (A) Cocaine Metabolite Negative Fentanyl Negative Hydrocodone / Hydromorphone Negative Methadone Metabolite Negative Morphine / Codeine Negative Oxycodone / Oxymorphone Positive (A) Valid Interpretation Normal Creatinine MICHAEL 50 Narrative Cutoff Concentrations: Drug Level Amphetamines [...] TOXICOLOGY, URINE SCREEN W/ CONFIRMATION Result Value Amphetamine Negative Benzodiazepines Negative Cannabinoids Positive (A) Cocaine Metabolite Negative Fentanyl Negative Hydrocodone / Hydromorphone Negative Methadone Metabolite Negative Morphine / Codeine Positive (A) Oxycodone / Oxymorphone Negative Narrative Cutoff Concentrations: Drug Level Amphetamines [...] 09:00 AM HGBA1C 5.3 05/08/2014 09:24 AM documented in this encounter Plan of Treatment [...] 05/27/2021, 10/17/2020, 09/26/2020 CKD PHOS USE SMARTSET 81375 11/26/2022 11/26/2021, 1 TSH 01/14/2023 01/14/2022, 11/16, 12/16/2019, Additional history exists CKD HGB USE SMARTSET 71851 01/22/202301/22, 01/16/2022, 01/10/2022, Additional history exists Influenza [...] muscle documented in this encounter Care Teams Superintendent Circus Relationship Specialty Start Date End Date Arpit Osman III, MD [address] [place] [address] PCP - General 02/09/02 documented as of this encounter
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
--- OUTSIDE RECORDS SUMMARY | 2023-07-19 13:13 | External Medical Summary | Summary of Care ---
Author Name Unknown Organization [facility] Address [address] [place] [address] Phone [phone] Care Team Providers Care Ocean Export Account Manager Name Role Phone Dawson CALDERON MD, Arpit Arevalo Primary Care Provider [phone] Reason for Visit * Reason Onset Date Comments Health Maintenance 02/10/2023 Encounter Details Date Type Department Care Team Description 02/10/2023 Telephone Family Practice [facility] [address] [facility] [place] [id number] Arpit Osman III, MD [address] [place] [address] Health Maintenance Allergies Active Allergy Reactions Severity Noted Date [...] as of this encounter (statuses as of 02/10/2023) Medications Medication Sig Dispensed Refills Start Date [...] 10/05/2022 Active Metaxalone 800 MG Oral Tablet (Skelaxin)Indication [...] before bedtime. 360 Capsule 0 02/08/2023 Active Hospital, Clinic, or Other Facility Administered Medication Ordered Dose Route Frequency Start Date End Date Status ketorolac (TORADOL) 60 MG/2ML IM inj 60 mgIndications:Fibromyalgia 60 mg IM MTH 02/29/2020 Active documented as of this encounter (statuses as of 02/10/2023) Active Problems Problem Noted Date Insomnia 12/01/2022 [...] as of this encounter (statuses as of 02/10/2023) Resolved Problems Problem Noted Date Resolved Date Bipolar 1 disorder, depressed, severe 10/25/2017 11/11/2022 Bipolar depression 07/08/2017 10/25/2017 Myalgia and myositis 06/30/2010 10/12/2016 HYPERTENSION NOS 11/27/2005 06/06/2009 Overview: Modified per HTN protocol #16. Major depressive disorder 08/08/20022016 Overview: ICD-10 update of inactive term CKD (chronic kidney disease), stage III 11/28/2020 documented as of this encounter (statuses as of 02/10/2023) Immunizations Name Administration Dates Next Due COVID-19 mRNA, LNP-s, No Pre serve, 2-Dose Series (Pfizer) 05/27/2021,10/17/2020,09/26/2020 Pneumococcal Conjugate Vacci ne, 20-valent ([id number]) 03/04/2022 Pneumococcal Polysaccharide PPV23 (Pneumovax) 06/15/2020,08/06/2010 Seasonal [...] encounter Miscellaneous Notes * Telephone Encounter - Lydia Nunes LPN - 02/10/2023 9:05 AM EDT Care Gaps Comprehensive Care Outreach Last Office/Telemedicine Visit: 11/03/2022 (in office), 01/29/2023 (telemedicine) Next Office Visit: Visit date not found Hemoglobin AIC Results: Lab Results Component Value Date/Time HEMOGLOBIN A1C - [facility] 5.3 05/08/2014 09:24 AM HEMOGLOBIN A1C - [facility] 6.1 01/30/2014 03:30 PM HEMOGLOBIN A1C - [facility] 5.8 11/01/2013 03:35 PM Reviewed Health Maintenance below: Health Maintenance Topic Date Due Mammogram 09/27/2003 Hepatitis B (1 of 3 - Risk 3-dose series) Never done Albumin/Creatinine Ratio 09/11/2015 Depression Screening, Annual for Pts 12 and Over 08/09/2018 Zoster Vaccines (3 of 3) 02/29/2020 COVID-19 Vaccine (4 - Pfizer series) 07/22/2021 CKD PHOS USE SMARTSET 23461 11/26/2022 TSH 01/14/2023 CKD HGB USE SMARTSET 43245 01/22/2023 Influenza Vaccine (FLU shot) (1) 03/19/2023 GFR 04/27/2023 Mamm Urine Labs already ordered ov Patient is in a personal longterm Care Gap Outreach Action Taken: Outreach not indicated documented in this encounter Plan of Treatment Upcoming Encounters Date Type Specialty Care Team Description 03/05/2023 Telemedicine Psychiatry Shelby Estrella MD [address] [place] [address] Health Maintenance Due Date Last Done [...] 05/27/2021, 10/17/2020, 09/26/2020 CKD PHOS USE SMARTSET [id number] 11/26/2022 11/26/2021, 1 TSH 01/14/2023 01/14/2022, 11/16, 12/16/2019, Additional history exists CKD HGB USE SMARTSET 05883 01/22/202301/22, 01/16/2022, 01/10/2022, Additional history exists Influenza [...] filedocumented as of this encounter Care Teams Ocean Export Account Manager Relationship Specialty Start Date End Date Arpit Osman III, MD [address] [facility] [place] [address] PCP - General 02/09/02 documented as of this encounter
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
--- NOTE | 2023-07-19 13:20 | ED Triage Note ---
Date of Service July 19, 2023 Provider in Triage Author: Amy Menchaca History of Present Illness This patient was briefly evaluated while in triage. An abbreviated physical exam was performed. This patient is a 67-year-old Female who presents to the ED for evaluation of back pain and flu-like symptoms. She states that a little over a month ago she had injections into her spine at [facility]. She states that the day after, she developed pain in her entire spine. Pain has not gotten better since then. Since yesterday she has had diarrhea, vomiting, fever, and bodyaches. She has chronic back pain and fibromyalgia. Physical Exam VITALS: Vitals are noted on the nurse's note and reviewed by myself. GENERAL: This is a 67-year-old female, moaning, sitting in a wheelchair in triage. SKIN: The skin was without rashes. HEART: Regular rate and rhythm without murmurs gallops or rubs. LUNGS: Clear to auscultation bilaterally without wheezes, rales or rhonchi. ABDOMEN: Positive bowel sounds x 4. Soft, nontender to palpation. NEURO: Patient was alert and oriented to person place and time. Initial orders for labs and / or imaging were placed and patient was placed in the waiting area until a bed is available. Please see further documentation for the full ED course. MDM / Impression Impression Impression: Chronic pain, Fibromyalgia, Gastroenteritis, Dehydration Impression: Chronic pain Qualifiers: Chronic pain type: other chronic pain Qualified Code(s): G89.29 - Other chronic pain
[2023-07-19] MEDS ORDERED: SODIUM CHLORIDE 0.9% 1,000 ML IV ONE ×2 (13:25→15:20)
[2023-07-19 14:32] LABS: Basophils # (auto) 0.03 K/uL (0.00-0.20); Basophils % (auto) 0.5 %; Eosinophils # (auto) 0.01 K/uL (0.00-0.50); Eosinophils % (auto) 0.2 %; Hematocrit (blood only) 46.5 % (37.0-47.0); Hemoglobin 16.4 g/dl (12.0-16.0); Immature Granulocytes # (auto) 0.01 K/uL (0.01-0.20); Immature Granulocytes % (auto) 0.2 %; Lymphocytes # (auto) 0.84 K/uL (1.20-3.40); Lymphocytes % (auto) 14.3 %; Mean Corpuscular Hemoglobin 32.8 pg (25.0-34.0); Mean Corpuscular Hgb Conc 35.3 g/dL (32.0-36.0); Mean Platelet Volume 9.7 fL (9.4-12.4); Monocytes # (auto) 0.32 K/uL (0.11-0.59); Monocytes % (auto) 5.4 %; Neutrophils # (auto) 4.68 K/uL (1.40-6.50); Neutrophils % (auto) 79.4 %; Platelet Count 215 K/uL (130-400); RDW Coefficient of Variation 13.1 % (11.5-14.5); RDW Standard Deviation 44.6 fL (36.4-46.3); White Blood Count 5.89 K/ul (4.8-10.8)
[2023-07-19 14:32] LABS: Influenza A virus by PCR Negative (Neg); Influenza B virus by PCR Negative (Neg); RSV by PCR Negative (Neg); SARS CoV2 RNA(COVID-19) Ceph NEGATIVE (Negative)
[2023-07-19 14:49] LABS: Alanine Aminotransferase 17 U/L (7-52); Albumin Globulin Ratio 1.4 (0.9-2); Albumin Level 4.1 gm/dl (3.4-5.0); Alkaline Phosphatase 71 U/L (34-104); Anion Gap 13 (3-11); Aspartate Aminotransferase 22 U/L (13-39); BUN Creatinine Ratio 10.9 (10-20); Bilirubin,Total 0.6 mg/dl (0.2-1.0); Blood Urea Nitrogen 10 mg/dl (6-23); Calcium 10.2 mg/dl (8.6-10.3); Carbon Dioxide 22 mmol/L (21-32); Chloride 99 mmol/L (98-107); Est GFR (African American) 74.2 ml/min; Globulin 2.9 gm/dl (2.5-4.0); Glucose 110 mg/dl (70-99(Fasting)); Potassium 3.6 mmol/L (3.5-5.1); Sodium 134 mmol/L (136-145)
[2023-07-19] MEDS ORDERED: methylPREDNISolone 125 MG/2 ML VIAL IV STA (15:20)
[2023-07-19] MEDS ORDERED: FAMOTIDINE 20MG IV PUSH 20 MG/5 ML SYR IV STA (15:20)
[2023-07-19] MEDS ORDERED: ACETAMINOPHEN 1,000 MG/100 ML VIAL IV STA (15:20)
[2023-07-19] MEDS ORDERED: ONDANSETRON INJ 2 MG/ML 2 ML VIAL IV STA (15:20)
[2023-07-19 15:45] LABS: C Reactive Protein < 0.50 mg/dl (0-0.5); Creatine Kinase 37 U/L (26-192)
[2023-07-19 15:59] LABS: Procalcitonin < 0.05 ng/ml (0-0.5)
[2023-07-19 16:05] LABS: Lyme Ab IgG w/WB Rflx Negative (Negative); Lyme Ab IgM w/WB Rflx Negative (Negative)
[2023-07-19] MEDS ORDERED: OPTIRAY 320 500ml IV ONE (16:08)
[2023-07-19 16:21] LABS: Adenovirus PCR Not Detected (NotDetected); Bordetella parapertussis PCR Not Detected (NotDetected); Bordetella pertussis PCR Not Detected (NotDetected); Chlamydia pneumoniae PCR Not Detected (NotDetected); Coronavirus 229E PCR Not Detected (NotDetected); Coronavirus CoV-2 (COVID19)PCR Not Detected (NotDetected); Coronavirus HKU1 PCR Not Detected (NotDetected); Coronavirus NL63 PCR Not Detected (NotDetected); Coronavirus OC43PCR Not Detected (NotDetected); Human Metapneumovirus PCR Not Detected (NotDetected); Influenza A PCR Not Detected (NotDetected); Influenza B PCR Not Detected (NotDetected); Mycoplasma pneumoniae PCR Not Detected (NotDetected); Parainfluenza Virus 1 PCR Not Detected (NotDetected); Parainfluenza Virus 2 PCR Not Detected (NotDetected); Parainfluenza Virus 3 PCR Not Detected (NotDetected); Parainfluenza Virus 4 PCR Not Detected (NotDetected); Respiratory Syncytial VirusPCR Not Detected (NotDetected); Rhinovirus/Enterovirus PCR Not Detected (NotDetected)
--- NOTE | 2023-07-19 16:26 | CT Scan Report ---
CT OF THE ABDOMEN AND PELVIS WITH CONTRAST CLINICAL HISTORY: Nausea/diarrhea, fever, acute on chronic back pain. COMPARISON STUDY: CT of the abdomen and pelvis October 26, 2022. MRCP January 07, 2022. TECHNIQUE: Following IV administration of 89 mL of Optiray, axial images of the abdomen and pelvis we re obtained from the lung bases to the proximal femurs. Images were reviewed in the axial, sagittal, and coronal planes. IV contrast was administered without complication. Automated exposure control wa s utilized for the study. A dose lowering technique was utilized adhering to the principles of ALARA . FINDINGS: No pneumatosis, free air or portal venous gas is present. This exam is compromised by artif act from spinal hardware and bilateral hip arthroplasties. Lateral segment hepatic cysts are again no margi. Intra and extra hepatic biliary ductal dilatation is unchanged since CT of October 26, 2022. No pa ncreatic ductal dilatation is present. There no peripancreatic or pericholecystic infiltration. Splee n, adrenal glands and kidneys are unremarkable. There is no hydronephrosis. The small bowel is mildly fluid-filled. No transition point is identified. Caliber and wall thickness of small and large bowel are normal. The appendix is normal. There is no lymphadenopathy. There are no fluid collections. Int erval right hip arthroplasty is noted. There are postoperative finding within the spine. Please note that the lumbar spine CT will be reported separately. An old [id number] is unchanged. An old compress ion fracture of the inferior endplate of T12 is also unchanged. Lucency adjacent to the bilateral T10 pedicle screws is unchanged. No acute fractures are present. Multilevel discectomy and posterior dec ompression. IMPRESSION: 1. Mildly fluid-filled small bowel. This could represent enteritis. No bowel obstruction. No bowel wa ll thickening. Normal appendix. 2. No change in biliary ductal dilatation. This remains nonspecific and could be correlated with live r function tests. 3. Exam compromised by streak artifact from surgical hardware. ACT 112: Negative or not required by law. Electronically signed by: Juan Canseco M.D. 07/19/2023 4:23 PM
--- NOTE | 2023-07-19 16:34 | CT Scan Report ---
CT lumbar spine w con CLINICAL HISTORY: nausea/diarrhea, fever, acute on chronic back pain COMPARISON STUDY: Lumbar spine radiographs December 23, 2019. Lumbar spine MRI February 03, 2019. CT of the a bdomen and pelvis October 26, 2022. TECHNIQUE: Axial images of the lumbar spine were obtained. Sagittal and coronal reconstructions were viewed. Automated exposure control was utilized for the study. A dose lowering technique was utilize d adhering to the principles of ALARA. FINDINGS: Please note that the superior extent of the thoracolumbar spine fusion is imaged on the CT of the abdomen and pelvis. A T10-L5 fusion is noted. Multilevel discectomy and posterior decompressio n is noted. No acute fracture is identified. An old T12 compression fracture is unchanged. An old S2 fracture is also unchanged. Lucency adjacent to the bilateral T10 pedicle screws is unchanged. The ap pearance of the hardware is unchanged. Central canal and neural foramen are suboptimally assessed giv en CT technique. No osseous lesions are identified. IMPRESSION: 1. No acute lumbar spine fracture. 2. No change in extensive postoperative findings within the thoracolumbar spine since CT of October 26, 2022, as described above. Old T12 and L2 fractures. Lucency adjacent to the bilateral T10 pedicle sc rews unchanged. ACT 112: Negative or not required by law. Electronically signed by: Juan Canseco M.D. 07/19/2023 4:32 PM
[2023-07-19] MEDS ORDERED: POTASSIUM CHLORIDE CRTAB 20 MEQ TABCR PO STA (17:53)
[2023-07-19] MEDS ORDERED: MAGNESIUM SULFATE / D5W 1 GM/100 ML BAG IV STA (17:53)
[2023-07-19 18:14] LABS: Magnesium 1.9 mg/dl (1.7-2.4); Phosphorus 3.2 mg/dl (2.5-4.9)
[2023-07-19] MEDS ORDERED: LORazepam 1 MG TAB SL STA (18:51)
[2023-07-19] MEDS ORDERED: HALOPERIDOL LACTATE 5 MG in SODIUM CHLORIDE 0.9% 500 ML IV STA (18:51)
--- NOTE | 2023-07-19 19:47 | Emergency Department Note ---
Impression & Plan Chronic pain, Fibromyalgia, Gastroenteritis, Dehydration ED Provider Note NAME: GERA RONDON AGE: 67 SEX: F ARRIVES VIA: Ambulance INFORMANT: Patient ED PROVIDER(S): Connor Rodriguez MD CHIEF COMPLAINT: Back, head, generalized abdominal pain, nausea, vomiting, diarrhea. PLAN: Disposition: Admit MEDICAL DECISION MAKING: The patient is a 67-year-old woman with a past medical history of chronic pain, fibromyalgia, IBS, hypertension, hypothyroidism, bipolar disorder, hyperparathyroidism, osteoporosis who presents to the emergency department via EMS for evaluation of symptoms of generalized body aches, fevers, nausea, vomiting and diarrhea over the past several days in the setting of having ongoing severe acute on chronic lower lumbar/sacral pain since May when she received steroid injections by her heel painter. She denies urinary retention. She denies cough or congestion. She reports headache and pain throughout her entire body. On my evaluation the patient is anxious, tearful appearing but no acute distress, afebrile blood pressure 170/100s and heart rate in the 100s and vital signs otherwise stable. She appears clinically dry. She has normal strength in all extremities. DTRs within normal limits. There is no clonus. Abdomen is benign. She has no midline tenderness palpation of the CT or L-spine. There is no discoloration or edema of the lower lumbar region where she reports having had her injections. WBC and platelet within normal limits. H/H 16.4/46.5 consistent with the patient's clinically dry appearance. Chemistry without metabolic acidosis. Sodium 134, potassium 3.6 and magnesium 1.9 and electrolytes otherwise unremarkable. LFTs unremarkable. CPK within normal limits. ESR and CRP are 21 and undetectable, respectively. Respiratory viral panel/[employer] was negative. Lyme screen was negative. Anaplasma PCR smear was negative with DNA testing pending performed for completeness though no clear known tick exposures. CT of the abdomen pelvis and lumbar spine were performed and demonstrates evidence of enteritis with mildly fluid filled bowel and otherwise were for acute abnormalities. Upon reevaluation the patient reported some initial/minimal improvement after IV hydration, APAP and dexamethasone. We did have an extensive discussion regarding management of her pain and that narcotics are not recommended/indicated in her best interest for her fibromyalgia/chronic pain. While it was communicated that if a clear identifiable cause for narcotic medication was identified that this would be provided her workup does not identify any indication for narcotic analgesia at this time. IV magnesium was ordered for possible additional relief of neuropathic pain however the patient became tearful and reported that she cannot go home in this state as she cannot even ambulate due to the pain. It should be noted that this had been submitted described on outpatient evaluations as well. However, given the patient's extent of symptoms we agreed to refer her to the hospital service for further management. She was ordered for 1 mg of sublingual Ativan to help with anxiolysis and thereby also help with her pain. Additionally she was ordered for 5 mg of Haldol in 500cc normal saline for treatment of migrainous component to her symptoms. Case was discussed with [facility], who will evaluate the patient for admission. Triage Nursing notes reviewed and agree them. Prior/external medical records reviewed Vital Signs: reviewed Differential diagnosis: Musculoskeletal, disc herniation, fracture, metastatic disease, cord compression, discitis, sciatica, cauda equina, infection, aortic disease, renal colic, gastrointestinal, as well as other pathologies. ER treatment provided: See below. Diagnostics interpreted by me: Cardiac Monitoring: An order for continuous cardiac monitoring was placed and demonstrated sinus tachycardia, 112 bpm, no ectopy. Laboratory studies: See below Imaging studies: See below Consultation(s): [facility] who will evaluate the patient for admission. HPI: The patient is a 67-year-old woman with a past medical history of chronic pain, fibromyalgia, IBS, hypertension, hypothyroidism, bipolar disorder, hyperparathyroidism, osteoporosis who presents to the emergency department via EMS for evaluation of symptoms of generalized body aches, fevers, nausea, vomiting and diarrhea over the past several days in the setting of having ongoing severe acute on chronic lower lumbar/sacral pain since May when she received steroid injections by her heel painter. She denies urinary retention. She denies cough or congestion. She reports headache and pain throughout her entire body. ROS: See above HPI for pertinent positives & negatives. A total of 10 systems reviewed and were otherwise negative. VITALS:See Below PHYSICAL EXAMINATION: GENERAL: Awake, alert, anxious/tearful-appearing, in no distress HENT: Normocephalic, atraumatic. Oropharynx with dry mucous membranes and otherwise unremarkable. EYES: Normal conjunctiva. Sclera non-icteric. NECK: Supple. No nuchal rigidity. FROM. No JVD. RESPIRATORY: Clear to auscultation. CARDIAC: Regular rate, normal rhythm. Extremities warm and well perfused. Pulses equal. ABDOMEN: Soft, non-distended. No tenderness to palpation. No rebound or guarding. No masses. RECTAL: Deferred. MUSCULOSKELETAL: Chest examination reveals no tenderness. The back is symmetrical on inspection without obvious abnormality. No midline tenderness palpation of the CT or L-spine. There is no discoloration or edema of the lower lumbar region where she reports having had her injections. There is no CVA tenderness to palpation. No joint edema. LOWER EXTREMITIES: Calves are equal size bilaterally and non-tender. No edema. No discoloration. NEURO:No focal sensory or motor deficits noted. DTRs within normal limits. There is no clonus. SKIN: No rash or jaundice noted. Connor Rodriguez MD Past Med/Surg History Medical History Osteoporosis History of suicide attempt Left rotator cuff tear Leg length discrepancy Hip dislocation, left (~03/2020) Bipolar II disorder Psychiatry and Neurofeedback Chronic pain Drug overdose Hypothyroidism Hypertension Pressure injury of sacral region, stage 1 C. difficile diarrhea IBS (irritable bowel syndrome) Recurrent Clostridioides difficile diarrhea CKD (chronic kidney disease), stage III Polypharmacy Hyponatremia Hypokalemia Borderline personality disorder Fibromyalgia Surgical History H/O carpal tunnel repair S/P cataract surgery Status post total hip replacement, left H/O inguinal hernia repair Family History Father Lung cancer associated cerebellar ataxia Macular degeneration Mother Pacemaker Other Cancer Heart disease Hypertension Lung disease Social History Smoking Status: Former smoker Tobacco Type: E-cigarettes / Vaping Second Hand Exposure: No; Do You Dip or Chew Tobacco: No; Hx Alcohol Use: Yes Alcohol type: beer and hard liquor Hx Substance Use: Yes Last Used Substance: Unknown Last Used Substance Other:: Atleast 2 days ago for Kratom. Marijuana more then 24hrs. 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 checked herself into [facility] for help with care (personal care) current occupational status: retired Feels Safe at Home: Yes Assistive Devices: Cane and Walker Allergies Allergies Allergy/AdvReac Type Severity Reaction Status Date / Time cyclobenzaprine Allergy Intermediate ITCHY Verified 07/19/23 15:42 RASH, WT GAIN, DEPRESSION fentanyl Allergy Intermediate MAJOR FEET Verified 07/19/23 15:42 SWELLING ketorolac Allergy Unknown PER [facility] Verified 07/19/23 15:42 oxcarbazepine Allergy Unknown UNKNOWN - Verified 07/19/23 15:42 PT DOESN'T REMEMBER clonazepam AdvReac Intermediate NAUSEA/VOMI Verified 07/19/23 15:42 TING hydrocodone AdvReac Intermediate PT DOESN'T Verified 07/19/23 15:42 LIKE WITHDRAWAL SYMPTOMS oxycodone AdvReac Intermediate PT DOESN'T Verified 07/19/23 15:42 LIKE WITHDRAWAL SYMPTOMS risperidone AdvReac Intermediate exhaustion Verified 07/19/23 15:42 Home Meds Home Medications Medication Instructions Recorded Confirmed prednisone 5 mg tablet 5 mg PO QAM 08/18/18 07/19/23 acetaminophen 500 mg tablet 1,000 mg PO Q6H PRN Pain 03/20/20 07/19/23 (Tylenol Extra Strength) metaxalone 800 mg tablet 800 mg PO QID PRN NEEDED PER [facility] 03/20/20 07/19/23 omeprazole 20 mg capsule,delayed 20 mg PO BID 03/20/20 07/19/23 release ondansetron 8 mg disintegrating 8 mg translingual Q8H PRN Nausea 03/20/20 07/19/23 tablet losartan 50 mg tablet 50 mg PO QAM 06/26/20 07/19/23 acyclovir 5 % topical ointment 1 applic topical 6XD PRN LIP SORES 10/27/22 07/19/23 (Zovirax) SOON SYMPTOMS START. albuterol sulfate 90 mcg/actuation 2 puff inhalation QID PRN 10/27/22 07/19/23 aerosol inhaler Shortness Of Breath Or Wheezing diclofenac sodium 1 % topical gel 2 g topical QID PRN Pain 10/27/22 07/19/23 fluticasone propionate 50 2 spray intranasal DAILY PRN 10/27/22 07/19/23 mcg/actuation nasal Congestion spray,suspension polyethylene glycol 3350 17 17 g PO DAILY PRN Constipation 10/27/22 07/19/23 gram/dose oral powder (Miralax) furosemide 20 mg tablet 20 mg PO QAM 07/19/23 07/19/23 lidocaine 5 % topical patch 1 patch topical DAILY PRN Pain 07/19/23 07/19/23 Previous Rx's Medication Instructions Recorded ferrous sulfate 325 mg (65 mg 325 mg PO BIDM #1 tab 12/23/19 iron) tablet,delayed release levothyroxine 50 mcg tablet 50 mcg PO DAILYBB #1 tab 12/23/19 (Synthroid) duloxetine 60 mg capsule,delayed 120 mg (2 x 60 mg) PO QAM #60 caps 06/20/20 release gabapentin 300 mg capsule 300 mg PO QID 30 days #120 caps 06/20/20 lamotrigine 150 mg tablet 150 mg PO BID #60 tabs 06/20/20 topiramate 100 mg tablet 200 mg (2 x 100 mg) PO HS #30 tabs 12/15/22 Results & Data (ED) Vital Signs Vital Signs - 24 hr 07/19/23 13:21 07/19/23 15:06 07/19/23 15:36 Temperature 36.9 C Temperature Source Temporal Artery Scan Pulse Rate 112 H 98 H Pulse Rate [Apical] 95 H Respiratory Rate 18 24 Respiratory Effort / Characteristics Non-Labored Respiratory Depth Normal Blood Pressure 172/106 H Blood Pressure [Right Arm] 174/135 H Blood Pressure Mean 128 Blood Pressure Mean [Right Arm] 148 Pulse Oximetry 97 96 Oxygen Delivery Method Room Air Room Air Sepsis Recent Fever Within 48 Hours No Sepsis New/Unexplained Change in Mental Status N/A Sepsis Action Taken by Nursing No Action Required 07/19/23 17:00 07/19/23 19:00 Temperature Temperature Source Pulse Rate Pulse Rate [Apical] 88 81 Respiratory Rate 18 16 Respiratory Effort / Characteristics Non-Labored Non-Labored Respiratory Depth Normal Normal Blood Pressure Blood Pressure [Right Arm] Blood Pressure Mean Blood Pressure Mean [Right Arm] Pulse Oximetry 95 95 Oxygen Delivery Method Room Air Room Air Sepsis Recent Fever Within 48 Hours Sepsis New/Unexplained Change in Mental Status Sepsis Action Taken by Nursing Laboratory Data Attestation: I reviewed the patient's lab results. 07/19/23 14:10 07/19/23 14:10 Lab Results 07/19/23 07/19/23 07/19/23 Range/Units 14:10 Unknown Unknown WBC 5.89 (4.8-10.8) K/ul RBC 5.00 (4.20-5.40) M/uL Hgb 16.4 H (12.0-16.0) g/dl Hct 46.5 (37.0-47.0) % MCV 93.0 (80.0-100.0) fL MCH 32.8 (25.0-34.0) pg MCHC 35.3 (32.0-36.0) g/dL RDW Std Deviation 44.6 (36.4-46.3) fL RDW Coeff of Irving 13.1 (11.5-14.5) % Plt Count 215 (130-400) K/uL MPV 9.7 (9.4-12.4) fL Immature Gran % (Auto) 0.2 % Neut % (Auto) 79.4 % Lymph % (Auto) 14.3 % Smyth % (Auto) 5.4 % Eos % (Auto) 0.2 % Baso % (Auto) 0.5 % Neut # (Auto) 4.68 (1.40-6.50) K/uL Lymph # (Auto) 0.84 L (1.20-3.40) K/uL Smyth # (Auto) 0.32 (0.11-0.59) K/uL Eos # (Auto) 0.01 (0.00-0.50) K/uL Baso # (Auto) 0.03 (0.00-0.20) K/uL Immature Gran # (Auto) 0.01 (0.01-0.20) K/uL ESR 21 (0-30) mm/hr Sodium 134 L (136-145) mmol/L Potassium 3.6 (3.5-5.1) mmol/L Chloride 99 (98-107) mmol/L Carbon Dioxide 22 (21-32) mmol/L Anion Gap 13 H (3-11) BUN 10 (6-23) mg/dl Creatinine 0.92 (0.6-1.2) mg/dl Est Cr Clr Drug Dosing Not Reportable Est GFR ( Amer) 74.2 ml/min Est GFR (Non-Af Amer) 64.0 ml/min BUN/Creatinine Ratio 10.9 (10-20) Glucose 110 H (70-99(Fasting)) mg/dl Calcium 10.2 (8.6-10.3) mg/dl Phosphorus 3.2 (2.5-4.9) mg/dl Magnesium 1.9 (1.7-2.4) mg/dl Total Bilirubin 0.6 (0.2-1.0) mg/dl AST 22 (13-39) U/L ALT 17 (7-52) U/L Alkaline Phosphatase 71 (34-104) U/L Total Creatine Kinase 37 (26-192) U/L C-Reactive Protein < 0.50 (0-0.5) mg/dl Total Protein 7.0 (6.0-8.3) gm/dl Albumin 4.1 (3.4-5.0) gm/dl Globulin 2.9 (2.5-4.0) gm/dl Albumin/Globulin Ratio 1.4 (0.9-2) Procalcitonin < 0.05 (0-0.5) ng/ml Adenovirus (PCR) Not Detected (NotDetected) Anaplasma Smear See Comment Babesia Smear See Comment B. pertussis DNA (PCR) Not Detected (NotDetected) B.parapertussis DNA PCR Not Detected (NotDetected) Lyme Disease IgG Ab Negative (Negative) Lyme Disease IgM Ab Negative (Negative) C. pneumoniae DNA (PCR) Not Detected (NotDetected) Coronavirus OC43 (PCR) Not Detected (NotDetected) Coronavirus HKU1 (PCR) Not Detected (NotDetected) Coronavirus 229E (PCR) Not Detected (NotDetected) SARS-CoV-2 (PCR) NEGATIVE Not Detected (Negative) Coronavirus NL63 (PCR) Not Detected (NotDetected) Human Metapneumovir PCR Not Detected (NotDetected) Influenza Type A (PCR) Negative (Neg) Influenza Type B (PCR) (Neg) M. pneumoniae (PCR) (NotDetected) Parainfluenza 1 (PCR) (NotDetected) Parainfluenza 2 (PCR) (NotDetected) Parainfluenza 3 (PCR) (NotDetected) Parainfluenza 4 (PCR) (NotDetected) RSV (RT-PCR) (Neg) RSV (PCR) (NotDetected) Entero/Rhino (PCR) (NotDetected) 07/19/23 07/19/23 Range/Units Unknown Unknown WBC (4.8-10.8) K/ul RBC (4.20-5.40) M/uL Hgb (12.0-16.0) g/dl Hct (37.0-47.0) % MCV (80.0-100.0) fL MCH (25.0-34.0) pg MCHC (32.0-36.0) g/dL RDW Std Deviation (36.4-46.3) fL RDW Coeff of Irving (11.5-14.5) % Plt Count (130-400) K/uL MPV (9.4-12.4) fL Immature Gran % (Auto) % Neut % (Auto) % Lymph % (Auto) % Smyth % (Auto) % Eos % (Auto) % Baso % (Auto) % Neut # (Auto) (1.40-6.50) K/uL Lymph # (Auto) (1.20-3.40) K/uL Smyth # (Auto) (0.11-0.59) K/uL Eos # (Auto) (0.00-0.50) K/uL Baso # (Auto) (0.00-0.20) K/uL Immature Gran # (Auto) (0.01-0.20) K/uL ESR (0-30) mm/hr Sodium (136-145) mmol/L Potassium (3.5-5.1) mmol/L Chloride (98-107) mmol/L Carbon Dioxide (21-32) mmol/L Anion Gap (3-11) BUN (6-23) mg/dl Creatinine (0.6-1.2) mg/dl Est Cr Clr Drug Dosing Est GFR ( Amer) ml/min Est GFR (Non-Af Amer) ml/min BUN/Creatinine Ratio (10-20) Glucose (70-99(Fasting)) mg/dl Calcium (8.6-10.3) mg/dl Phosphorus (2.5-4.9) mg/dl Magnesium (1.7-2.4) mg/dl Total Bilirubin (0.2-1.0) mg/dl AST (13-39) U/L ALT (7-52) U/L Alkaline Phosphatase (34-104) U/L Total Creatine Kinase (26-192) U/L C-Reactive Protein (0-0.5) mg/dl Total Protein (6.0-8.3) gm/dl Albumin (3.4-5.0) gm/dl Globulin (2.5-4.0) gm/dl Albumin/Globulin Ratio (0.9-2) Procalcitonin (0-0.5) ng/ml Adenovirus (PCR) (NotDetected) Anaplasma Smear Babesia Smear B. pertussis DNA (PCR) (NotDetected) B.parapertussis DNA PCR (NotDetected) Lyme Disease IgG Ab (Negative) Lyme Disease IgM Ab (Negative) C. pneumoniae DNA (PCR) (NotDetected) Coronavirus OC43 (PCR) (NotDetected) Coronavirus HKU1 (PCR) (NotDetected) Coronavirus 229E (PCR) (NotDetected) SARS-CoV-2 (PCR) (Negative) Coronavirus NL63 (PCR) (NotDetected) Human Metapneumovir PCR (NotDetected) Influenza Type A (PCR) Not Detected (Neg) Influenza Type B (PCR) Negative Not Detected (Neg) M. pneumoniae (PCR) Not Detected (NotDetected) Parainfluenza 1 (PCR) Not Detected (NotDetected) Parainfluenza 2 (PCR) Not Detected (NotDetected) Parainfluenza 3 (PCR) Not Detected (NotDetected) Parainfluenza 4 (PCR) Not Detected (NotDetected) RSV (RT-PCR) Negative (Neg) RSV (PCR) Not Detected (NotDetected) Entero/Rhino (PCR) Not Detected (NotDetected) Administered Medications Discontinued Medications Sodium Chloride (Nss) 1,000 mls @ 999 mls/hr IV .Q1H1M ONE Stop: 07/19/23 14:25 Last Infusion: 07/19/23 15:18 Dose: Infused Documented By: Admin: 07/19/23 14:08 Dose: 999 mls/hr Documented By: ML Sodium Chloride (Nss) 1,000 mls @ 999 mls/hr IV .Q1H1M ONE Stop: 07/19/23 16:20 Last Infusion: 07/19/23 17:15 Dose: Infused Documented By: Admin: 07/19/23 15:36 Dose: 999 mls/hr Documented By: NELLI Acetaminophen (Ofirmev) 1,000 mg in 100 mls @ 400 mls/hr IV NOW STA Stop: 07/19/23 15:34 Last Infusion: 07/19/23 16:01 Dose: Infused Documented By: Admin: 07/19/23 15:35 Dose: 400 mls/hr Documented By: NELLI Famotidine (Pepcid 20mg Iv Push) 20 mg in 5 mls @ 2.5 mls/min IV NOW STA Stop: 07/19/23 15:21 Last Admin: 07/19/23 15:35 Dose: 2.5 mls/min Documented By: NELLI Magnesium Sulfate/Dextrose (Magnesium Sulfate / D5w) 1 gm in 100 mls @ 100 mls/hr IV NOW STA Stop: 07/19/23 18:52 Last Infusion: 07/19/23 19:25 Dose: Infused Documented By: Admin: 07/19/23 18:23 Dose: 100 mls/hr Documented By: NELLI Ioversol (Optiray 320 500ml) 89 ml IV ONCE ONE Stop: 07/19/23 16:09 Last Admin: 07/19/23 16:08 Dose: 89 ml Documented By: MATEO Lorazepam (Lorazepam 1 Mg Tab) 1 mg SL NOW STA Stop: 07/19/23 18:52 Last Admin: 07/19/23 19:00 Dose: 1 mg Documented By: NELLI Methylprednisolone (Methylprednisolone 125 Mg/2 Ml Vial) 125 mg IV NOW STA Stop: 07/19/23 15:21 Last Admin: 07/19/23 15:35 Dose: 125 mg Documented By: NELLI Ondansetron HCl (Ondansetron Inj 2 Mg/Ml 2 Ml Vial) 4 mg IV NOW STA Stop: 07/19/23 15:21 Last Admin: 07/19/23 15:35 Dose: 4 mg Documented By: NELLI Potassium Chloride (Potassium Chloride Crtab 20 Meq Tabcr) 40 meq PO NOW STA Stop: 07/19/23 17:54 Last Admin: 07/19/23 18:23 Dose: 40 meq Documented By: NELLI Imaging Data Radiologist's Impression: Abdomen/Pelvis CT 07/19/23 15:22 CT OF THE ABDOMEN AND PELVIS WITH CONTRAST CLINICAL HISTORY: Nausea/diarrhea, fever, acute on chronic back pain. COMPARISON STUDY: CT of the abdomen and pelvis October 26, 2022. MRCP January 07, 2022. TECHNIQUE: Following IV administration of 89 mL of Optiray, axial images of the abdomen and pelvis were obtained from the lung bases to the proximal femurs. Images were reviewed in the axial, sagittal, and coronal planes. IV contrast was administered without complication. Automated exposure control was utilized for the study. A dose lowering technique was utilized adhering to the principles of ALARA. FINDINGS: No pneumatosis, free air or portal venous gas is present. This exam is compromised by artifact from spinal hardware and bilateral hip arthroplasties. Lateral segment hepatic cysts are again noted. Intra and extra hepatic biliary ductal dilatation is unchanged since CT of October 26, 2022. No pancreatic ductal dilatation is present. There no peripancreatic or pericholecystic infiltration. Spleen, adrenal glands and kidneys are unremarkable. There is no hydronephrosis. The small bowel is mildly fluid-filled. No transition point is identified. Caliber and wall thickness of small and large bowel are normal. The appendix is normal. There is no lymphadenopathy. There are no fluid collections. Interval right hip arthroplasty is noted. There are postoperative finding within the spine. Please note that the lumbar spine CT will be reported separately. An old [id number] is unchanged. An old compression fracture of the inferior endplate of T12 is also unchanged. Lucency adjacent to the bilateral T10 pedicle screws is unchanged. No acute fractures are present. Multilevel discectomy and posterior decompression. IMPRESSION: 1. Mildly fluid-filled small bowel. This could represent enteritis. No bowel obstruction. No bowel wall thickening. Normal appendix. 2. No change in biliary ductal dilatation. This remains nonspecific and could be correlated with liver function tests. 3. Exam compromised by streak artifact from surgical hardware. ACT 112: Negative or not required by law. Electronically signed by: Juan Canseco M.D. 07/19/2023 4:[address] 07/19/23 15:22 CT lumbar spine w con CLINICAL HISTORY: nausea/diarrhea, fever, acute on chronic back pain COMPARISON STUDY: Lumbar spine radiographs December 23, 2019. Lumbar spine MRI February 03, 2019. CT of the abdomen and pelvis October 26, 2022. TECHNIQUE: Axial images of the lumbar spine were obtained. Sagittal and coronal reconstructions were viewed. Automated exposure control was utilized for the study. A dose lowering technique was utilized adhering to the principles of ALARA. FINDINGS: Please note that the superior extent of the thoracolumbar spine fusion is imaged on the CT of the abdomen and pelvis. A T10-L5 fusion is noted. Multilevel discectomy and posterior decompression is noted. No acute fracture is identified. An old T12 compression fracture is unchanged. An old S2 fracture is also unchanged. Lucency adjacent to the bilateral T10 pedicle screws is unchanged. The appearance of the hardware is unchanged. Central canal and neural foramen are suboptimally assessed given CT technique. No osseous lesions are identified. IMPRESSION: 1. No acute lumbar spine fracture. 2. No change in extensive postoperative findings within the thoracolumbar spine since CT of October 26, 2022, as described above. Old T12 and L2 fractures. Lucency adjacent to the bilateral T10 pedicle screws unchanged. ACT 112: Negative or not required by law. Electronically signed by: Juan Canseco M.D. 07/19/2023 4:32 PM Discharge Plan Visit Data Chief Complaint: Flu Like Symptoms Stated Complaint: CHRONIC BACK PAIN, FLU LIKE SX, HEADACHE, FEVER, ED Provider: Connor Rodriguez Discharge Problem: Chronic pain, Fibromyalgia, Gastroenteritis, Dehydration Forms Stand Alone Forms: My [facility] Prescriptions Prescriptions: No Action losartan 50 mg tablet 50 mg PO QAM prednisone 5 mg Tablet 5 mg PO QAM levothyroxine [Synthroid] 50 mcg Tablet 50 mcg PO DAILYBB Qty: 1 0RF ferrous sulfate 325 mg (65 mg iron) Tablet,Delayed Release (Dr/Ec) 325 mg PO BIDM Qty: 1 0RF acetaminophen [Tylenol Extra Strength] 500 mg Tablet 1,000 mg PO Q6H MDD 6 tablets per day PRN (Reason: Pain) Rx Instructions: PER PT "USUALLY 3 X DAILY". ondansetron 8 mg tablet,disintegrating 8 mg translingual Q8H PRN (Reason: Nausea) omeprazole 20 mg capsule,delayed release(DR/EC) 20 mg PO BID metaxalone 800 mg tablet 800 mg PO QID PRN (Reason: NEEDED PER [facility]) lamotrigine 150 mg tablet 150 mg PO BID Qty: 60 0RF gabapentin 300 mg capsule 300 mg PO QID 30 Days Qty: 120 0RF duloxetine 60 mg Capsule,Delayed Release(Dr/Ec) 120 mg PO QAM Qty: 60 0RF acyclovir [Zovirax] 5 % Ointment 1 applic TOPICAL 6XD PRN (Reason: LIP SORES SOON SYMPTOMS START.) polyethylene glycol 3350 [Miralax] 17 gram/dose Powder 17 g PO DAILY PRN (Reason: Constipation) albuterol sulfate 90 mcg/actuation Hfa Aerosol Inhaler 2 puff INHALATION QID PRN (Reason: Shortness Of Breath Or Wheezing) fluticasone propionate 50 mcg/actuation [place],Suspension 2 spray INTRANASAL DAILY PRN (Reason: Congestion) Rx Instructions: administer into each nostril diclofenac sodium 1 % Gel 2 g TOPICAL QID PRN (Reason: Pain) topiramate 100 mg Tablet 200 mg PO HS Qty: 30 0RF lidocaine 5 % Adhesive Patch,Medicated 1 patch TOPICAL DAILY PRN (Reason: Pain) Rx Instructions: leave on most painful area for up to 12 hrs furosemide 20 mg tablet 20 mg PO QAM Referrals Referrals: Arpit Osman MD [Primary Care Provider] - Discharge Problem: Chronic pain Qualifiers: Chronic pain type: other chronic pain Qualified Code(s): G89.29 - Other chronic pain
--- NOTE | 2023-07-19 20:04 | History & Physical Report ---
Date of Service July 19, 2023 Assessment & Plan (1) Intractable back pain: (2) Fibromyalgia: (3) Chronic pain: Plan Pt is a 67yoF with past medical history significant for bipolar disorder, history of suicide attempt, anxiety, fibromyalgia, chronic pain syndrome, complex PTSD, HTN, hypothyroidism, OA of both knees and CKD stage III admitted with complaints of intractable back pain. Intractable back pain Fibromyalgia Chronic pain syndrome Complex PTSD Pt states she has been having pain after back injections by Dr Barton from [facility] Was told to followup in 6 weeks, but provider not available Has been having burning pain in the lower back bilaterally since then CT lumbar spine noting chronic changes, no acute findings Received Solumedrol 125mg in the ED, states pain was still 02/25, down from 04/27 consult ortho spine [facility]- appreciate recs consult pain management- appreciate recs Pain control- tylenol 1000mg scheduled, increase home gabapentin from 300mg to 400mg QID scheduled (can go up to max of 2400mg daily) One time dose of Dilaudid 0.25mg given and ordered q6h prn for SEVERE pain only Continue home duloxetine 120mg daily, metaxalone 800mg QID prn, prednisone 5mg daily, lidocaine patch Pt with multiple pain medication allergies including NSAIDs Pt follows with psychiatry PT/OT Continue other home meds as ordered. CODE STATUS: DNR/DNI DVT prophylaxis: Lovenox SQ Diet: regular Dispo: Med/Surg History of Present Illness Chief Complaint: back pain Primary Care Provider: Arpit Osman MD Pt is a 67yoF with past medical history significant for bipolar disorder, histor y of suicide attempt, anxiety, fibromyalgia, chronic pain syndrome, complex PTSD, HTN, hypothyroidism, OA of both knees and CKD stage III admitted with complaints of intractable back pain. States that she had back injections around Jun [address] Barton from [facility]. States in addition to her usual pain, she started having burning pain that "bit and chewed". Located in lower back below area that was injected. States that she reached out to Dr Barton's office and was advised that sometimes the injections can unmask pain that was previously there. States that she was advised to follow up in 6 weeks but provider is out of town and it will be 8 weeks before she sees him. States she was advised to go to the ED for further evaluation. States the pain is limiting her ability to walk and it hurts where she got the shots. States that she cannot do PT without pain medications. notes previous Hx of rods and screws in her back. Allergies Allergy/AdvReac Type Severity Reaction Status Date / Time cyclobenzaprine Allergy Intermediate ITCHY Verified 07/19/23 15:42 RASH, WT GAIN, DEPRESSION fentanyl Allergy Intermediate MAJOR FEET Verified 07/19/23 15:42 SWELLING ketorolac Allergy Unknown PER [facility]G Verified 07/19/23 15:42 oxcarbazepine Allergy Unknown UNKNOWN - Verified 07/19/23 15:42 PT DOESN'T REMEMBER clonazepam AdvReac Intermediate NAUSEA/VOMI Verified 07/19/23 15:42 TING hydrocodone AdvReac Intermediate PT DOESN'T Verified 07/19/23 15:42 LIKE WITHDRAWAL SYMPTOMS oxycodone AdvReac Intermediate PT DOESN'T Verified 07/19/23 15:42 LIKE WITHDRAWAL SYMPTOMS risperidone AdvReac Intermediate exhaustion Verified 07/19/23 15:42 Home Medications Medication Instructions Recorded Confirmed Type prednisone 5 mg tablet 5 mg PO QAM 08/18/18 07/19/23 History ferrous sulfate 325 mg (65 mg 325 mg PO BIDM #1 tab 12/23/19 07/19/23 Rx iron) tablet,delayed release levothyroxine 50 mcg tablet 50 mcg PO DAILYBB #1 tab 12/23/19 07/19/23 Rx (Synthroid) acetaminophen 500 mg tablet 1,000 mg PO Q6H PRN Pain 03/20/20 07/19/23 History (Tylenol Extra Strength) metaxalone 800 mg tablet 800 mg PO QID PRN NEEDED PER [facility] 03/20/20 07/19/23 History omeprazole 20 mg capsule,delayed 20 mg PO BID 03/20/20 07/19/23 History release ondansetron 8 mg disintegrating 8 mg translingual Q8H PRN Nausea 03/20/20 07/19/23 History tablet duloxetine 60 mg capsule,delayed 120 mg (2 x 60 mg) PO QAM #60 caps 06/20/20 07/19/23 Rx release gabapentin 300 mg capsule 300 mg PO QID 30 days #120 caps 06/20/20 07/19/23 Rx lamotrigine 150 mg tablet 150 mg PO BID #60 tabs 06/20/20 07/19/23 Rx losartan 50 mg tablet 50 mg PO QAM 06/26/20 07/19/23 History acyclovir 5 % topical ointment 1 applic topical 6XD PRN LIP SORES 10/27/22 07/19/23 History (Zovirax) SOON SYMPTOMS START. albuterol sulfate 90 mcg/actuation 2 puff inhalation QID PRN 10/27/22 07/19/23 History aerosol inhaler Shortness Of Breath Or Wheezing diclofenac sodium 1 % topical gel 2 g topical QID PRN Pain 10/27/22 07/19/23 History fluticasone propionate 50 2 spray intranasal DAILY PRN 10/27/22 07/19/23 History mcg/actuation nasal Congestion spray,suspension polyethylene glycol 3350 17 17 g PO DAILY PRN Constipation 10/27/22 07/19/23 History gram/dose oral powder (Miralax) topiramate 100 mg tablet 200 mg (2 x 100 mg) PO HS #30 tabs 12/15/22 07/19/23 Rx furosemide 20 mg tablet 20 mg PO QAM 07/19/23 07/19/23 History lidocaine 5 % topical patch 1 patch topical DAILY PRN Pain 07/19/23 07/19/23 History Past Med/Surg History Medical History Osteoporosis History of suicide attempt Left rotator cuff tear Leg length discrepancy Hip dislocation, left (~03/2020) Bipolar II disorder Psychiatry and Neurofeedback Chronic pain Drug overdose Hypothyroidism Hypertension Pressure injury of sacral region, stage 1 C. difficile diarrhea IBS (irritable bowel syndrome) Recurrent Clostridioides difficile diarrhea CKD (chronic kidney disease), stage III Polypharmacy Hyponatremia Hypokalemia Borderline personality disorder Fibromyalgia Surgical History H/O carpal tunnel repair S/P cataract surgery Status post total hip replacement, left H/O inguinal hernia repair Family History Father Lung cancer associated cerebellar ataxia Macular degeneration Mother Pacemaker Other Cancer Heart disease Hypertension Lung disease Social History Smoking Status: Former smoker Tobacco Type: E-cigarettes / Vaping Second Hand Exposure: No; Do You Dip or Chew Tobacco: No; Hx Alcohol Use: Yes Alcohol type: beer and hard liquor Hx Substance Use: Yes Last Used Substance: Unknown Last Used Substance Other:: Atleast 2 days ago for Kratom. Marijuana more then 24hrs. Substance Use Type Other:: reports medical marijuana card Preferred Language: Uzbek Communication Ability: Effective Communication Ability Comment: AMS Visual Impairment: No Limitations Hearing Ability: Normal Theatre Manager Required: No Beliefs That Will Affect Care: None marital status: / Current Living Situation: Alone Current Living Situation Comment: Pt. checked herself into [facility] for help with care (personal care) current occupational status: retired Feels Safe at Home: Yes Assistive Devices: Cane and Walker Review of Systems Review of Systems: All systems reviewed & are unremarkable except as noted in Subjective Physical Exam Physical Exam: General: Alert, oriented. No acute distress while sitting in bed Skin: No noted rashes or bruises Psych: Appropriate mood and affect Neuro: difficulty with left shoulder movement, strength and sensation grossly intact bilaterally in lower extremities HEENT: NC/AT CV: RRR Resp: Breath sounds clear bilaterally, no increased effort of breathing. Abdomen: Soft, tender RLQ Extremities: no edema MSK: difficulty with left shoulder movement, strength and sensation grossly intact bilaterally in lower extremities Results & Data Results & Data Vital Signs (Past 12 Hours) Vital Signs Temp Pulse Pulse Resp BP BP Pulse Ox 07/19/23 19:00 81 16 95 07/19/23 17:00 88 18 95 07/19/23 15:36 98 H 07/19/23 15:06 95 H 24 174/135 H 96 07/19/23 13:21 36.9 C 112 H 18 172/106 H 97 O2 Del Method 07/19/23 19:00 Room Air 07/19/23 17:00 Room Air 07/19/23 15:36 07/19/23 15:06 Room Air 07/19/23 13:21 Room Air Diagnostic Findings Abdomen/Pelvis CT 07/19/23 15:22 CT OF THE ABDOMEN AND PELVIS WITH CONTRAST CLINICAL HISTORY: Nausea/diarrhea, fever, acute on chronic back pain. COMPARISON STUDY: CT of the abdomen and pelvis October 26, 2022. MRCP January 07, 2022. TECHNIQUE: Following IV administration of 89 mL of Optiray, axial images of the abdomen and pelvis were obtained from the lung bases to the proximal femurs. Images were reviewed in the axial, sagittal, and coronal planes. IV contrast was administered without complication. Automated exposure control was utilized for the study. A dose lowering technique was utilized adhering to the principles of ALARA. FINDINGS: No pneumatosis, free air or portal venous gas is present. This exam is compromised by artifact from spinal hardware and bilateral hip arthroplasties. Lateral segment hepatic cysts are again noted. Intra and extra hepatic biliary ductal dilatation is unchanged since CT of October 26, 2022. No pancreatic ductal dilatation is present. There no peripancreatic or pericholecystic infiltration. Spleen, adrenal glands and kidneys are unremarkable. There is no hydronephrosis. The small bowel is mildly fluid-filled. No transition point is identified. Caliber and wall thickness of small and large bowel are normal. The appendix is normal. There is no lymphadenopathy. There are no fluid collections. Interval right hip arthroplasty is noted. There are postoperative finding within the spine. Please note that the lumbar spine CT will be reported separately. An old [id number] is unchanged. An old compression fracture of the inferior endplate of T12 is also unchanged. Lucency adjacent to the bilateral T10 pedicle screws is unchanged. No acute fractures are present. Multilevel discectomy and posterior decompression. IMPRESSION: 1. Mildly fluid-filled small bowel. This could represent enteritis. No bowel obstruction. No bowel wall thickening. Normal appendix. 2. No change in biliary ductal dilatation. This remains nonspecific and could be correlated with liver function tests. 3. Exam compromised by streak artifact from surgical hardware. ACT 112: Negative or not required by law. Electronically signed by: Juan Canseco M.D. 07/19/2023 4:[address] 07/19/23 15:22 CT lumbar spine w con CLINICAL HISTORY: nausea/diarrhea, fever, acute on chronic back pain COMPARISON STUDY: Lumbar spine radiographs December 23, 2019. Lumbar spine MRI February 03, 2019. CT of the abdomen and pelvis October 26, 2022. TECHNIQUE: Axial images of the lumbar spine were obtained. Sagittal and coronal reconstructions were viewed. Automated exposure control was utilized for the study. A dose lowering technique was utilized adhering to the principles of ALARA. FINDINGS: Please note that the superior extent of the thoracolumbar spine fusion is imaged on the CT of the abdomen and pelvis. A T10-L5 fusion is noted. Multilevel discectomy and posterior decompression is noted. No acute fracture is identified. An old T12 compression fracture is unchanged. An old S2 fracture is also unchanged. Lucency adjacent to the bilateral T10 pedicle screws is unchanged. The appearance of the hardware is unchanged. Central canal and neural foramen are suboptimally assessed given CT technique. No osseous lesions are identified. IMPRESSION: 1. No acute lumbar spine fracture. 2. No change in extensive postoperative findings within the thoracolumbar spine since CT of October 26, 2022, as described above. Old T12 and L2 fractures. Lucency adjacent to the bilateral T10 pedicle screws unchanged. ACT 112: Negative or not required by law. Electronically signed by: Juan Canseco M.D. 07/19/2023 4:32 PM (3) Chronic pain Chronic pain type: other chronic pain Qualified Code(s): G89.29 - Other chronic pain
[2023-07-19] MEDS ORDERED: HYDROmorphone INJ 0.5 MG/0.5 ML SYR IV STA (20:51)
[2023-07-19] MEDS ORDERED: FLUTICASONE PROPIONATE NA SPR 16 GM BTL NAE PRN (22:02)
[2023-07-19] MEDS ORDERED: ALBUTEROL HFA 8 GM INHALER INH PRN (22:02)
[2023-07-19] MEDS ORDERED: HYDROmorphone INJ 0.5 MG/0.5 ML SYR IV PRN (22:02)
[2023-07-19] MEDS ORDERED: POLYETHYLENE (MIRALAX) 17 GM PACK PO PRN (22:02)
[2023-07-19] MEDS ORDERED: ONDANSETRON 8MG OD TAB SL PRN (22:02)
[2023-07-19] MEDS ORDERED: ACYCLOVIR 5% OINT 15 GM TUBE EXT PRN (22:02)
[2023-07-20] MEDS: ACETAMINOPHEN 500 MG TAB PO SCH ×4 (00:31→21:03)
[2023-07-20] MEDS: PANTOprazole 40 MG TAB PO SCH ×3 (00:32→21:03)
[2023-07-20] MEDS: lamoTRIgine 25 MG TAB PO SCH ×3 (00:32→21:04)
[2023-07-20] MEDS: lamoTRIgine 100 MG TAB PO SCH ×3 (00:32→21:04)
[2023-07-20] MEDS: TOPIRAMATE 100 MG TAB PO SCH ×2 (00:33→21:03)
[2023-07-20] MEDS: GABAPENTIN 400 MG CAP PO SCH ×6 (00:34→21:03)
[2023-07-20] MEDS: METAXALONE 800 MG TABLET PO PRN ×3 (00:35→19:42)
[2023-07-20] MEDS: LEVOTHYROXINE SODIUM 50 MCG TABLET PO SCH (06:13)
[2023-07-20 06:53] LABS: Hematocrit (blood only) 35.2 % (37.0-47.0); Hemoglobin 12.4 g/dl (12.0-16.0); Mean Corpuscular Hemoglobin 32.7 pg (25.0-34.0); Mean Corpuscular Hgb Conc 35.2 g/dL (32.0-36.0); Mean Corpuscular Volume 92.9 fL (80.0-100.0); Mean Platelet Volume 9.8 fL (9.4-12.4); Platelet Count 155 K/uL (130-400); RDW Coefficient of Variation 12.8 % (11.5-14.5); RDW Standard Deviation 43.7 fL (36.4-46.3); Red Blood Count 3.79 M/uL (4.20-5.40); White Blood Count 4.69 K/ul (4.8-10.8)
[2023-07-20 07:18] LABS: BUN Creatinine Ratio 14.5 (10-20); Calcium 8.6 mg/dl (8.6-10.3); Creatinine Clr Calc Pharmacy 78.3 ml/min; Est GFR (African American) 103.7 ml/min; Est GFR (Non-African American) 89.4 ml/min; Potassium 4.1 mmol/L (3.5-5.1)
[2023-07-20] MEDS: FERROUS SULFATE 325 MG TAB PO SCH ×2 (07:42→16:55)
[2023-07-20] MEDS: FUROSEMIDE 20 MG TAB PO SCH (07:43)
[2023-07-20] MEDS: DULoxetine HCL 60 MG CAP PO SCH (07:44)
[2023-07-20] MEDS: predniSONE 5 MG TAB PO SCH (07:47)
[2023-07-20] MEDS: LOSARTAN POTASSIUM 50 MG TAB PO SCH (07:53)
[2023-07-20] MEDS: ENOXAPARIN INJ 40 MG/0.4 ML SYR SQ SCH (07:54)
[2023-07-20] MEDS: LIDOCAINE 5% 1 PATCH TD PRN (08:37)
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
[2023-07-20] MEDS ORDERED: ALUMINUM/MAGNESIUM/SIMETH (MAALOX MAX) 30 ML UDC PO PRN (11:09)
--- NOTE | 2023-07-20 12:37 | Orthopedic Consultation ---
Date of Consultation July 20, 2023 Assessment & Plan (1) Intractable back pain: This patient has had a very difficult history with chronic persistent back pain combined with many other issues. Starting her CAT scan lumbar spine appreciate no need for any surgical invention. I would like to obtain MRI of the pelvis to rule out sacroiliitis or an occult fracture that could be is contributing to her symptom complex pending these results and recommended pain management. This could be reestablish with her doctor on an outpatient basis at [facility] however during her inpatient stay we may need their assistance to control her pain. History of Present Illness Reason for Consultation: Patient complaining mostly of lumbosacral back pain. She describes bilateral leg weakness. She states this has been progressive since her lumbar injection performed several weeks ago. She does have a longstanding history of chronic pain with varying degrees of narcotic dependence. Attending Physician: Anselmo Anderson MD Allergies Allergy/AdvReac Type Severity Reaction Status Date / Time cyclobenzaprine Allergy Intermediate ITCHY Verified 07/19/23 15:42 RASH, WT GAIN, DEPRESSION fentanyl Allergy Intermediate MAJOR FEET Verified 07/19/23 15:42 SWELLING ketorolac Allergy Unknown PER [facility] Verified 07/19/23 15:42 oxcarbazepine Allergy Unknown UNKNOWN - Verified 07/19/23 15:42 PT DOESN'T REMEMBER clonazepam AdvReac Intermediate NAUSEA/VOMI Verified 07/19/23 15:42 TING hydrocodone AdvReac Intermediate PT DOESN'T Verified 07/19/23 15:42 LIKE WITHDRAWAL SYMPTOMS oxycodone AdvReac Intermediate PT DOESN'T Verified 07/19/23 15:42 LIKE WITHDRAWAL SYMPTOMS risperidone AdvReac Intermediate exhaustion Verified 07/19/23 15:42 Home Medications Medication Instructions Recorded Confirmed Type prednisone 5 mg tablet 5 mg PO QAM 08/18/18 07/19/23 History ferrous sulfate 325 mg (65 mg 325 mg PO BIDM #1 tab 12/23/19 07/19/23 Rx iron) tablet,delayed release levothyroxine 50 mcg tablet 50 mcg PO DAILYBB #1 tab 12/23/19 07/19/23 Rx (Synthroid) acetaminophen 500 mg tablet 1,000 mg PO Q6H PRN Pain 03/20/20 07/19/23 History (Tylenol Extra Strength) metaxalone 800 mg tablet 800 mg PO QID PRN NEEDED PER [facility] 03/20/20 07/19/23 History omeprazole 20 mg capsule,delayed 20 mg PO BID 03/20/20 07/19/23 History release ondansetron 8 mg disintegrating 8 mg translingual Q8H PRN Nausea 03/20/20 07/19/23 History tablet duloxetine 60 mg capsule,delayed 120 mg (2 x 60 mg) PO QAM #60 caps 06/20/20 07/19/23 Rx release gabapentin 300 mg capsule 300 mg PO QID 30 days #120 caps 06/20/20 07/19/23 Rx lamotrigine 150 mg tablet 150 mg PO BID #60 tabs 06/20/20 07/19/23 Rx losartan 50 mg tablet 50 mg PO QAM 06/26/20 07/19/23 History acyclovir 5 % topical ointment 1 applic topical 6XD PRN LIP SORES 10/27/22 07/19/23 History (Zovirax) SOON SYMPTOMS START. albuterol sulfate 90 mcg/actuation 2 puff inhalation QID PRN 10/27/22 07/19/23 History aerosol inhaler Shortness Of Breath Or Wheezing diclofenac sodium 1 % topical gel 2 g topical QID PRN Pain 10/27/22 07/19/23 History fluticasone propionate 50 2 spray intranasal DAILY PRN 10/27/22 07/19/23 History mcg/actuation nasal Congestion spray,suspension polyethylene glycol 3350 17 17 g PO DAILY PRN Constipation 10/27/22 07/19/23 History gram/dose oral powder (Miralax) topiramate 100 mg tablet 200 mg (2 x 100 mg) PO HS #30 tabs 12/15/22 07/19/23 Rx furosemide 20 mg tablet 20 mg PO QAM 07/19/23 07/19/23 History lidocaine 5 % topical patch 1 patch topical DAILY PRN Pain 07/19/23 07/19/23 History Patient History Medical History Osteoporosis History of suicide attempt Left rotator cuff tear Leg length discrepancy Hip dislocation, left (~03/2020) Bipolar II disorder Psychiatry and Neurofeedback Chronic pain Drug overdose Hypothyroidism Hypertension Pressure injury of sacral region, stage 1 C. difficile diarrhea IBS (irritable bowel syndrome) Recurrent Clostridioides difficile diarrhea CKD (chronic kidney disease), stage III Polypharmacy Hyponatremia Hypokalemia Borderline personality disorder Fibromyalgia Surgical History (Updated 07/20/23 @ 09:33 by Jamil Padilla PA-C) History of spinal surgery H/O carpal tunnel repair S/P cataract surgery Status post total hip replacement, left H/O inguinal hernia repair Family History Father Lung cancer associated cerebellar ataxia Macular degeneration Mother Pacemaker Other Cancer Heart disease Hypertension Lung disease Social History Smoking Status: Never smoker Tobacco Type: E-cigarettes / Vaping Second Hand Exposure: No; Do You Dip or Chew Tobacco: No; Hx Alcohol Use: Yes Alcohol type: beer and wine Hx Substance Use: Yes Last Used Substance: Just Prior to Arrival Last Used Substance Other:: Atleast 2 days ago for Kratom. Marijuana more then 24hrs. Substance Use Type Other:: reports medical marijuana card Preferred Language: Jamaican Communication Ability: Effective Communication Ability Comment: AMS Visual Impairment: No Limitations Hearing Ability: Normal Engraver Lettering Required: No Beliefs That Will Affect Care: None marital status: / Current Living Situation: Alone Current Living Situation Comment: Lives at home alone with 2 cats per patient current occupational status: retired Other Information That Helps Us Care for You: No Feels Safe at Home: Yes Safety Concerns: Feels Safe At This Time Assistive Devices: Cane and Walker Physical Exam Physical Exam: On exam she is obviously upset. She is able to sit up and get to the side of bed without any assistance.. She is able to stand without difficulty. She has no abnormal skin markings lumbar spine. There is tenderness palpation of the bilateral SI joints. She has reasonable strength testing otherwise. Results & Data Vital Signs (Past 12 Hours) Vital Signs Temp Pulse Resp BP Pulse Ox O2 Del Method 07/20/23 07:29 36.6 C 68 16 123/77 96 Room Air
--- NOTE | 2023-07-20 18:26 | Hospitalist Progress Note ---
Date of Service July 20, 2023 Assessment & Plan (1) Intractable back pain: (2) Fibromyalgia: (3) Chronic pain: Plan Pt is a 67 yr female with past medical history significant for bipolar disorder, history of suicide attempt, anxiety, fibromyalgia, chronic pain syndrome, c omplex PTSD, HTN, hypothyroidism, OA of both knees and CKD stage III admitted with complaints of intractable back pain. Intractable back pain H/O Fibromyalgia Chronic pain syndrome Follows with [facility] and received Back injections by Dr Barton --Lumbar CT:No acute lumbar spine fracture. No change in extensive postoperative findings within the thoracolumbar spine since CT of October 26, 2022, as described above. Old T12 and L2 fractures. Lucency adjacent to the bilateral T10 pedicle screws unchanged. -- Continue duloxetine, prednisone, gabapentin, metaxalone --Pain control as needed --Appreciate orthopedic input --MRI lumbar spine pending -- PT OT, fall precautions --Pain management consulted as well Check vitamin D levels Diarrhea H/O C diff Stool studies pending Monitor volume status IV fluids as needed GERD Continue PPI Maalox as needed Other chronic conditions: Fibromyalgia PTSD Mood disorder CKD stage III Hypertension Hypothyroidism Continue home medications Monitor renal function, BP DVT Px: Lovenox SQ CODE STATUS: DNR/DNI Admission and Anticipated Discharge Date Admission Date: July 19, 2023 Subjective Patient is seen and examined at bedside States having significant lower back pain radiating to lower extremities Also reports having acid reflux this morning Diarrhea resolved Reports nausea but no vomiting Denies any chest pain, dyspnea, abd pain No other complaints Review of Systems Review of Systems: All systems reviewed & are unremarkable except as noted in Subjective Physical Exam Physical Exam: Physical Exam: Vitals signs as noted above General Appearance:Thin, Frail, chronically ill appearing, no apparent distress Head: normocephalic, Atraumatic Eyes: normal inspection, EOMI Neck: supple, Trachea midline Respiratory/Chest: Normal breath sounds, CTA, No accessory muscle use Cardiovascular: S1, S2, No murmur Abdomen/GI:Soft, Non tender, Bowel sounds present Extremities/Musculoskeletal:normal inspection, Trace pedal edema Neurologic/Psych:AAOX3, grossly no focal neurological deficits Skin: normal color, warm Results & Data Results & Data Vital Signs (Past 12 Hours) Vital Signs Temp Pulse Resp BP Pulse Ox O2 Del Method 07/20/23 14:22 36.7 C 70 16 120/77 96 Room Air 07/20/23 07:29 36.6 C 68 16 123/77 96 Room Air Laboratory Results Short CBC 07/20/23 Range/Units 05:53 WBC 4.69 L (4.8-10.8) K/ul Hgb 12.4 D (12.0-16.0) g/dl Hct 35.2 L (37.0-47.0) % Plt Count 155 (130-400) K/uL BMP 07/20/23 05:53 Sodium 134 L Potassium 4.1 Chloride 108 H Carbon Dioxide 21 BUN 10 Creatinine 0.69 Glucose 156 H Calcium 8.6 (3) Chronic pain Chronic pain type: other chronic pain Qualified Code(s): G89.29 - Other chronic pain
--- NOTE | 2023-07-20 20:13 | Magnetic Resonance Report ---
Exam(s): MRI PELVIS Without Contrast EXAM: MR Pelvis Without Intravenous Contrast CLINICAL HISTORY: Reason for exam: sacral pain. TECHNIQUE: Multiplanar magnetic resonance images of the pelvis without intravenous contrast. COMPARISON: No relevant prior studies available. FINDINGS: Status post bilateral hip arthroplasties. Status post multilevel lumbar fusion hardware, extending to L5. No sacral fracture or subluxation. The sacral foramen are patent. Mild degenerative sclerosis of the sacroiliac joints, without widening or erosive changes. No MR evidence of sacroiliitis. Intact bilateral superior and inferior pubic rami. No tendinous avulsion injury within the pelvis. The intrapelvic contents are grossly unremarkable. IMPRESSION: No MR evidence of sacroiliitis. No fracture of the sacrum. Mild degenerative sclerosis of the sacroiliac joints, without widening or erosive changes. Bilateral hip arthroplasties and multilevel lumbar posterior fusion. Electronically signed by: Roel Singh MD 07/20/23 20:12 PM
[2023-07-20 20:54] LABS: Appearance Urine Cloudy (Clear); Bacteria Urine Automated Negative (Negative); Bilirubin Urine Negative (Negative); Blood Urine Negative (Negative); Color Urine Yellow; Glucose Urine UA Negative (Negative); Ketones Urine Trace (Negative); Leukocyte Esterase Urine Negative (Negative); Nitrite Urine Negative (Negative); Protein Urine Negative (Negative); RBC Urine Automated 0-4 /hpf (0-4); Specific Gravity Urine 1.029 (1.000-1.030); Urobilinogen Urine Negative (Negative); pH Urine 5.5 (4.5-7.5)
[2023-07-20 21:49] LABS: Calcium Oxalate Crystals Urine Present (None Prsent)
[2023-07-21 02:59] LABS: Adenovirus F 40/41 PCR Not Detected (NotDetected); Astrovirus PCR Not Detected (NotDetected); Campylobacter PCR Not Detected (NotDetected); Cryptosporidium PCR Not Detected (NotDetected); Cyclospora cayetanensis PCR Not Detected (NotDetected); Entamoeba histolytica PCR Not Detected (NotDetected); Enteroaggregative E.coli(EAEC) Not Detected (NotDetected); Enteropathogenic E.coli (EPEC) Not Detected (NotDetected); Enterotoxigenic E.coli (ETEC) Not Detected (NotDetected); Giardia lamblia PCR Not Detected (NotDetected); Norovirus GI/GII PCR Not Detected (NotDetected); Plesiomonas shigelloides PCR Not Detected (NotDetected); Rotavirus A PCR Not Detected (NotDetected); Salmonella PCR Not Detected (NotDetected); Sapovirus PCR Not Detected (NotDetected); Shiga-like Toxin E.coli (STEC) Not Detected (NotDetected); Shigella/Enteroinvasive E.coli Not Detected (NotDetected); Vibrio cholerae PCR Not Detected (NotDetected); Vibrio species PCR Not Detected (NotDetected); Yersinia enterocolitica PCR Not Detected (NotDetected)
[2023-07-21] MEDS: LEVOTHYROXINE SODIUM 50 MCG TABLET PO SCH (05:34)
[2023-07-21] MEDS: ACETAMINOPHEN 500 MG TAB PO SCH ×3 (05:34→21:15)
[2023-07-21] MEDS: METAXALONE 800 MG TABLET PO PRN ×4 (05:51→20:22)
[2023-07-21 07:46] LABS: Hematocrit (blood only) 37.2 % (37.0-47.0); Hemoglobin 12.5 g/dl (12.0-16.0); Mean Corpuscular Hemoglobin 32.5 pg (25.0-34.0); Mean Corpuscular Hgb Conc 33.6 g/dL (32.0-36.0); Mean Corpuscular Volume 96.6 fL (80.0-100.0); Platelet Count 148 K/uL (130-400); RDW Coefficient of Variation 13.4 % (11.5-14.5); RDW Standard Deviation 47.8 fL (36.4-46.3); Red Blood Count 3.85 M/uL (4.20-5.40); White Blood Count 3.94 K/ul (4.8-10.8)
[2023-07-21 08:00] LABS: BUN Creatinine Ratio 11.8 (10-20); Calcium 9.3 mg/dl (8.6-10.3); Creatinine Clr Calc Pharmacy 63.6 ml/min; Est GFR (African American) 81.6 ml/min; Est GFR (Non-African American) 70.4 ml/min; Potassium 4.2 mmol/L (3.5-5.1)
[2023-07-21] MEDS: DULoxetine HCL 60 MG CAP PO SCH (08:40)
[2023-07-21] MEDS: LIDOCAINE 5% 1 PATCH TD PRN (08:40)
[2023-07-21] MEDS: lamoTRIgine 25 MG TAB PO SCH ×2 (08:41→20:22)
[2023-07-21] MEDS: LOSARTAN POTASSIUM 50 MG TAB PO SCH (08:41)
[2023-07-21] MEDS: PANTOprazole 40 MG TAB PO SCH ×2 (08:42→20:22)
[2023-07-21] MEDS: ENOXAPARIN INJ 40 MG/0.4 ML SYR SQ SCH (08:42)
[2023-07-21] MEDS: lamoTRIgine 100 MG TAB PO SCH ×2 (08:42→20:22)
[2023-07-21] MEDS: predniSONE 5 MG TAB PO SCH (08:42)
[2023-07-21] MEDS: FERROUS SULFATE 325 MG TAB PO SCH ×2 (08:44→17:14)
[2023-07-21] MEDS: GABAPENTIN 400 MG CAP PO SCH (08:44)
[2023-07-21] MEDS: FUROSEMIDE 20 MG TAB PO SCH (08:44)
[2023-07-21] MEDS: GABAPENTIN 300 MG CAP PO SCH ×3 (14:22→20:22)
[2023-07-21] MEDS: TOPIRAMATE 100 MG TAB PO SCH (20:22)
[2023-07-21] MEDS: HYDROmorphone INJ 0.5 MG/0.5 ML SYR IV PRN (20:40)
[2023-07-21] MEDS: DICLOFENAC SOD 1% GEL 100 GM TUBE EXT PRN (20:40)
--- NOTE | 2023-07-21 20:46 | Hospitalist Progress Note ---
Date of Service July 21, 2023 Assessment & Plan (1) Intractable back pain: (2) Fibromyalgia: (3) Chronic pain: Plan Pt is a 67 yr female with past medical history significant for bipolar disorder, history of suicide attempt, anxiety, fibromyalgia, chronic pain syndrome, c omplex PTSD, HTN, hypothyroidism, OA of both knees and CKD stage III admitted with complaints of intractable back pain. Intractable back pain H/O Fibromyalgia Chronic pain syndrome Follows with [facility] and received Back injections by Dr Barton --Lumbar CT:No acute lumbar spine fracture. No change in extensive postoperative findings within the thoracolumbar spine since CT of October 26, 2022, as described above. Old T12 and L2 fractures. Lucency adjacent to the bilateral T10 pedicle screws unchanged. -- Continue duloxetine, prednisone, gabapentin, metaxalone --Pain control as needed --Appreciate orthopedic: did not reevaluate --MRI lumbar spine: no fracture -- PT OT: recommends walker --Pain management: nothing to do inpatient Check vitamin D levels Diarrhea H/O C diff Stool studies negative Monitor volume status IV fluids as needed GERD Continue PPI Maalox as needed Other chronic conditions: Fibromyalgia PTSD Mood disorder CKD stage III Hypertension Hypothyroidism Continue home medications Monitor renal function, BP DVT Px: Lovenox SQ CODE STATUS: DNR/DNI Admission and Anticipated Discharge Date Admission Date: July 19, 2023 Subjective NAEO Reports ongoing pain, but seems chronic. Reports "flares" related to injection Physical Exam Constitutional: WD/WN, vitals as above Respiratory: normal respiratory effort, lungs clear to auscultation Cardiovascular: RRR, no murmur, no edema Gastrointestinal (Abdomen): normal bowel sounds, soft, nontender, no hepatosplenomegaly Musculoskeletal: no cyanosis or clubbing, extremities motor strength 5/5 Results & Data Results & Data Vital Signs (Past 12 Hours) Vital Signs Temp Pulse Resp BP Pulse Ox O2 Del Method 07/21/23 14:51 36.8 C 70 18 120/73 95 Room Air Laboratory Results Short CBC 07/21/23 Range/Units 06:58 WBC 3.94 L (4.8-10.8) K/ul Hgb 12.5 (12.0-16.0) g/dl Hct 37.2 (37.0-47.0) % Plt Count 148 (130-400) K/uL BMP 07/21/23 06:58 Sodium 136 Potassium 4.2 Chloride 107 Carbon Dioxide 25 BUN 10 Creatinine 0.85 Glucose 101 H Calcium 9.3 Urine 07/20/23 Range/Units Unknown Urine Color Yellow Urine Appearance Cloudy A (Clear) Urine pH 5.5 (4.5-7.5) Ur Specific [place] 1.029 (1.000-1.030) Urine Protein Negative (Negative) Urine Glucose (UA) Negative (Negative) Medications Administered Home Medications Medication Instructions Recorded Confirmed Last Taken prednisone 5 mg tablet 5 mg PO QAM 08/18/18 07/19/23 07/19/23 ferrous sulfate 325 mg (65 mg 325 mg PO BIDM #1 tab 12/23/19 07/19/23 07/19/23 08:00 iron) tablet,delayed release levothyroxine 50 mcg tablet 50 mcg PO DAILYBB #1 tab 12/23/19 07/19/23 07/19/23 (Synthroid) acetaminophen 500 mg tablet 1,000 mg PO Q6H PRN Pain 03/20/20 07/19/23 07/19/23 08:00 (Tylenol Extra Strength) metaxalone 800 mg tablet 800 mg PO QID PRN NEEDED PER [facility] 03/20/20 07/19/23 10/27/22 08:00 omeprazole 20 mg capsule,delayed 20 mg PO BID 03/20/20 07/19/23 07/19/23 08:00 release ondansetron 8 mg disintegrating 8 mg translingual Q8H PRN Nausea 03/20/20 07/19/23 01/04/22 tablet duloxetine 60 mg capsule,delayed 120 mg (2 x 60 mg) PO QAM #60 caps 06/20/20 07/19/23 07/19/23 release gabapentin 300 mg capsule 300 mg PO QID 30 days #120 caps 06/20/20 07/19/23 07/19/23 12:00 lamotrigine 150 mg tablet 150 mg PO BID #60 tabs 06/20/20 07/19/23 07/19/23 08:00 losartan 50 mg tablet 50 mg PO QAM 06/26/20 07/19/23 07/19/23 acyclovir 5 % topical ointment 1 applic topical 6XD PRN LIP SORES 10/27/22 07/19/23 Unknown (Zovirax) SOON SYMPTOMS START. albuterol sulfate 90 mcg/actuation 2 puff inhalation QID PRN 10/27/22 07/19/23 Unknown aerosol inhaler Shortness Of Breath Or Wheezing diclofenac sodium 1 % topical gel 2 g topical QID PRN Pain 10/27/22 07/19/23 Unknown fluticasone propionate 50 2 spray intranasal DAILY PRN 10/27/22 07/19/23 Unknown mcg/actuation nasal Congestion spray,suspension polyethylene glycol 3350 17 17 g PO DAILY PRN Constipation 10/27/22 07/19/23 Unknown gram/dose oral powder (Miralax) topiramate 100 mg tablet 200 mg (2 x 100 mg) PO HS #30 tabs 12/15/22 07/19/23 07/18/23 furosemide 20 mg tablet 20 mg PO QAM 07/19/23 07/19/23 07/19/23 lidocaine 5 % topical patch 1 patch topical DAILY PRN Pain 07/19/23 07/19/23 Unknown Active Medications Generic Name Dose Route Start Last Admin Trade Name Freq PRN Reason Stop Dose Admin Acetaminophen 1,000 mg 07/19/23 22:02 07/21/23 13:12 Acetaminophen 500 Mg Tab PO 08/18/23 22:01 1,000 mg Q8 IVAN Administration Al Hydrox/Mg Hydrox/Simethicone 15 ml 07/20/23 11:09 07/20/23 11:20 Aluminum/Magnesium/Simeth (Maalox Max) 30 Ml Udc PO 08/19/23 11:08 15 ml Q6H PRN Administration Dyspepsia Diclofenac Sodium 2 gm 07/19/23 22:02 07/21/23 20:40 Diclofenac Sod 1% Gel 100 Gm Tube EXT 08/18/23 22:01 2 gm QID PRN Administration Pain Protocol Duloxetine HCl 120 mg 07/20/23 09:00 07/21/23 08:40 Duloxetine Hcl 60 Mg Cap PO 08/19/23 08:59 120 mg QAM IVAN Administration Enoxaparin Sodium 40 mg 07/20/23 09:00 07/21/23 08:42 Enoxaparin Inj 40 Mg/0.4 Ml Syr SQ 08/19/23 08:59 40 mg QAM IVAN Administration Ferrous Sulfate 325 mg 07/20/23 08:00 07/21/23 17:14 Ferrous Sulfate 325 Mg Tab PO 08/19/23 07:59 325 mg BIDM IVAN Administration Furosemide 20 mg 07/20/23 09:00 07/21/23 08:44 Furosemide 20 Mg Tab PO 08/19/23 08:59 Not Given QAM IVAN Gabapentin 300 mg 07/21/23 13:00 07/21/23 20:22 Gabapentin 300 Mg Cap PO 08/20/23 12:59 300 mg QID IVAN Administration Hydromorphone HCl 0.5 mg 07/20/23 08:10 07/21/23 20:40 Hydromorphone Inj 0.5 Mg/0.5 Ml Syr IV 08/02/23 22:01 0.5 mg Q6H PRN Administration Severe Pain (Scale 7, 8, 9,10) Lamotrigine 100 mg 07/19/23 22:02 07/21/23 20:22 Lamotrigine 100 Mg Tab PO 08/18/23 22:01 100 mg BID IVAN Administration Lamotrigine 50 mg 07/19/23 22:02 07/21/23 20:22 Lamotrigine 25 Mg Tab PO 08/18/23 22:01 50 mg BID IVAN Administration Levothyroxine Sodium 50 mcg 07/20/23 06:30 07/21/23 05:34 Levothyroxine Sodium 50 Mcg Tablet PO 08/19/23 06:29 50 mcg DAILYBB IVAN Administration Lidocaine 1 patch 07/19/23 22:02 07/21/23 08:40 Lidocaine 5% 1 Patch TD 08/18/23 22:01 1 patch DAILY PRN Administration Pain Losartan Potassium 50 mg 07/20/23 09:00 07/21/23 08:41 Losartan Potassium 50 Mg Tab PO 08/19/23 08:59 50 mg QAM IVAN Administration Metaxalone 800 mg 07/19/23 22:02 07/21/23 20:22 Metaxalone 800 Mg Tablet PO 08/18/23 22:01 800 mg QID PRN Administration NEEDED PER [facility] Miscellaneous 1 each 07/19/23 22:02 07/21/23 20:22 Remove Lidoderm Patch N/A 08/18/23 22:01 1 each DAILY@2100 IVAN Administration Pantoprazole Sodium 40 mg 07/19/23 22:02 01/03/24 20:22 Pantoprazole 40 Mg Tab PO 08/18/23 22:01 40 mg BID IVAN Administration Prednisone 5 mg 07/20/23 09:00 07/21/23 08:42 Prednisone 5 Mg Tab PO 08/19/23 08:59 5 mg QAM IVAN Administration Topiramate 200 mg 07/19/23 22:02 07/21/23 20:22 Topiramate 100 Mg Tab PO 08/18/23 22:01 200 mg HS IVAN Administration (3) Chronic pain Chronic pain type: other chronic pain Qualified Code(s): G89.29 - Other chronic pain
[2023-07-21] MEDS ORDERED: oxyCODONE HCL IR 5 MG TAB (IMMEDIATE RELEASE) PO STA (20:58)
[2023-07-22] MEDS: DICLOFENAC SOD 1% GEL 100 GM TUBE EXT PRN (02:21)
[2023-07-22] MEDS: METAXALONE 800 MG TABLET PO PRN ×2 (02:22→07:45)
[2023-07-22] MEDS: ACETAMINOPHEN 500 MG TAB PO SCH ×3 (05:29→21:02)
[2023-07-22] MEDS: LEVOTHYROXINE SODIUM 50 MCG TABLET PO SCH (05:29)
[2023-07-22 07:24] LABS: Hematocrit (blood only) 35.8 % (37.0-47.0); Hemoglobin 12.1 g/dl (12.0-16.0); Mean Corpuscular Hemoglobin 32.5 pg (25.0-34.0); Mean Corpuscular Hgb Conc 33.8 g/dL (32.0-36.0); Mean Corpuscular Volume 96.2 fL (80.0-100.0); Mean Platelet Volume 9.7 fL (9.4-12.4); Platelet Count 129 K/uL (130-400); RDW Coefficient of Variation 13.2 % (11.5-14.5); RDW Standard Deviation 47.7 fL (36.4-46.3); Red Blood Count 3.72 M/uL (4.20-5.40); White Blood Count 3.91 K/ul (4.8-10.8)
[2023-07-22] MEDS: GABAPENTIN 300 MG CAP PO SCH ×4 (07:43→20:59)
[2023-07-22] MEDS: ENOXAPARIN INJ 40 MG/0.4 ML SYR SQ SCH (07:44)
[2023-07-22] MEDS: LIDOCAINE 5% 1 PATCH TD PRN (07:44)
[2023-07-22] MEDS: FUROSEMIDE 20 MG TAB PO SCH (07:44)
[2023-07-22] MEDS: FERROUS SULFATE 325 MG TAB PO SCH ×2 (07:45→16:52)
[2023-07-22] MEDS: DULoxetine HCL 60 MG CAP PO SCH (07:45)
[2023-07-22] MEDS: predniSONE 5 MG TAB PO SCH (07:45)
[2023-07-22 07:46] LABS: BUN Creatinine Ratio 13.6 (10-20); Calcium 8.9 mg/dl (8.6-10.3); Creatinine Clr Calc Pharmacy 66.7 ml/min; Est GFR (African American) 86.5 ml/min; Est GFR (Non-African American) 74.6 ml/min; Potassium 3.7 mmol/L (3.5-5.1)
[2023-07-22] MEDS: PANTOprazole 40 MG TAB PO SCH ×2 (07:46→20:59)
[2023-07-22] MEDS: LOSARTAN POTASSIUM 50 MG TAB PO SCH (07:49)
[2023-07-22] MEDS: lamoTRIgine 100 MG TAB PO SCH ×2 (07:52→21:01)
[2023-07-22] MEDS: lamoTRIgine 25 MG TAB PO SCH ×2 (07:52→20:59)
[2023-07-22] MEDS: HYDROmorphone INJ 0.5 MG/0.5 ML SYR IV PRN (11:21)
[2023-07-22] MEDS ORDERED: LOPERAMIDE HCL 2 MG CAP PO PRN (15:18)
[2023-07-22] MEDS ORDERED: LOPERAMIDE HCL 2 MG CAP PO STA (15:18)
--- NOTE | 2023-07-22 17:13 | Hospitalist Progress Note ---
Date of Service July 22, 2023 Assessment & Plan (1) Intractable back pain: (2) Fibromyalgia: (3) Chronic pain: Plan Pt is a 67 yr female with past medical history significant for bipolar disorder, history of suicide attempt, anxiety, fibromyalgia, chronic pain syndrome, c omplex PTSD, HTN, hypothyroidism, OA of both knees and CKD stage III admitted with complaints of intractable back pain. Intractable back pain H/O Fibromyalgia Chronic pain syndrome Follows with [facility] and received Back injections by Dr Barton --Lumbar CT:No acute lumbar spine fracture. No change in extensive postoperative findings within the thoracolumbar spine since CT of October 26, 2022, as described above. Old T12 and L2 fractures. Lucency adjacent to the bilateral T10 pedicle screws unchanged. -- Continue duloxetine, prednisone, gabapentin, metaxalone. No indication for narcotics --Appreciate orthopedic: did not reevaluate --MRI lumbar spine: no fracture -- PT OT: recommends walker Discussed with ortho spine - no surgical intervention indicated. Recommends pain mgmt (current pain mgmt provider Dr. Barton is moving, needs to est with new provider) [place] Pain management: nothing to do inpatient CM looking to coordinate home health Extensive conversation Dr. Garza, friend Brandon at bedside - plan is for establishing with [facility] pain mgmt in [place], coordinating home health and ca with PRN tramadol Diarrhea H/O C diff Stool studies negative Monitor volume status IV fluids as needed GERD Continue PPI Maalox as needed Other chronic conditions: Fibromyalgia PTSD Mood disorder CKD stage III Hypertension Hypothyroidism Continue home medications Monitor renal function, BP DVT Px: Lovenox SQ CODE STATUS: DNR/DNI Admission and Anticipated Discharge Date Admission Date: July 19, 2023 Supervising Physician Co-Signing Physician Notes I have seen and discussed the case with the collaborating CLAIR. I agree with the above H&P. I have reviewed and confirmed the patients medical history, the findings on physical examination, and the patients diagnosis and treatment plan with Christian SELF and agree with the information documented. In short, Ms. Odom is a 67 year old woman with fibromyalgia, chronic pain, BPDII who is admitted due to acute on chronic back pain. Ortho spine review MRI and did not reveal any signs of acute inflammation or acute fracture, overall no signs for acute surgical intervention. Pain management at [facility] no longer has pain agreement with patient for under clear circumstances. Patient does appear to experience emotional distress and disturbances, with reported contributions from complex-PTSD (reportedly diagnosed by her psychiatrist). It was explained to patient that her chronic pain is not able to be adequately managed in the inpatient setting. There are no acute or palliative/terminal reasons to prescribe opioids to patient at this time. Patient was agreeable for a prescription of tramadol to "bridge" to pain appointment with which her "Pain Advocate", Brandon, will attempt to make in [place]. Subjective Seen in follow up in [facility] for chronic back pain. Reports ongoing pain, but seems chronic. Ambulating to the bathroom with cane and independently able to get back into bed. No other acute issues. Still endorsing diarrhea but is staying well hydrated. No F/C, lightheadedness, CP, SOB, N/V, abdominal pain, dysuria. Review of Systems Review of Systems: At least ten systems reviewed and negative except as noted in the HPI. Physical Exam Physical Exam: Gen: WD/WN, NAD, sitting in bedside chair, A&Ox3 HEENT: Normocephalic, atraumatic, conjunctivae moist, sclerae anicteric, mucous membranes moist Lung: Clear to Auscultation bilaterally, no wheezes/rales/rhonchi Heart: Regular rate, regular rhythm, no murmurs, rubs, or gallops Abdomen: Soft, NT, ND +BS x 4 Extremities: +chronic painno edema Skin: Warm, no rash Results & Data Results & Data Vital Signs (Past 12 Hours) Vital Signs Temp Pulse Resp BP Pulse Ox O2 Del Method 07/22/23 14:07 36.8 C 71 16 123/80 95 Room Air 07/22/23 08:55 83 135/91 96 Room Air 07/22/23 08:00 36.5 C 67 18 164/110 H 95 Room Air Laboratory Results Short CBC 07/22/23 Range/Units 06:31 WBC 3.91 L (4.8-10.8) K/ul Hgb 12.1 (12.0-16.0) g/dl Hct 35.8 L (37.0-47.0) % Plt Count 129 L (130-400) K/uL BMP 07/22/23 06:31 Sodium 138 Potassium 3.7 Chloride 109 H Carbon Dioxide 26 BUN 11 Creatinine 0.81 Glucose 111 H Calcium 8.9 Diagnostic Findings Abdomen/Pelvis CT 07/19/23 15:22 CT OF THE ABDOMEN AND PELVIS WITH CONTRAST CLINICAL HISTORY: Nausea/diarrhea, fever, acute on chronic back pain. COMPARISON STUDY: CT of the abdomen and pelvis October 26, 2022. MRCP January 07, 2022. TECHNIQUE: Following IV administration of 89 mL of Optiray, axial images of the abdomen and pelvis were obtained from the lung bases to the proximal femurs. Images were reviewed in the axial, sagittal, and coronal planes. IV contrast was administered without complication. Automated exposure control was utilized for the study. A dose lowering technique was utilized adhering to the principles of ALARA. FINDINGS: No pneumatosis, free air or portal venous gas is present. This exam is compromised by artifact from spinal hardware and bilateral hip arthroplasties. L ateral segment hepatic cysts are again noted. Intra and extra hepatic biliary ductal dilatation is unchanged since CT of October 26, 2022. No pancreatic ductal dilatation is present. There no peripancreatic or pericholecystic infiltration. Spleen, adrenal glands and kidneys are unremarkable. There is no hydronephrosis. The small bowel is mildly fluid-filled. No transition point is identified. Caliber and wall thickness of small and large bowel are normal. The appendix is normal. There is no lymphadenopathy. There are no fluid collections. Interval right hip arthroplasty is noted. There are postoperative finding within the spine. Please note that the lumbar spine CT will be reported separately. An old [id number] is unchanged. An old compression fracture of the inferior endplate of T12 is also unchanged. Lucency adjacent to the bilateral T10 pedicle screws is unchanged. No acute fractures are present. Multilevel discectomy and posterior decompression. IMPRESSION: 1. Mildly fluid-filled small bowel. This could represent enteritis. No bowel obstruction. No bowel wall thickening. Normal appendix. 2. No change in biliary ductal dilatation. This remains nonspecific and could be correlated with liver function tests. 3. Exam compromised by streak artifact from surgical hardware. ACT 112: Negative or not required by law. Electronically signed by: Juan Canseco M.D. 07/19/2023 4:[address] 07/19/23 15:22 CT lumbar spine w con CLINICAL HISTORY: nausea/diarrhea, fever, acute on chronic back pain COMPARISON STUDY: Lumbar spine radiographs December 23, 2019. Lumbar spine MRI February 03, 2019. CT of the abdomen and pelvis October 26, 2022. TECHNIQUE: Axial images of the lumbar spine were obtained. Sagittal and coronal reconstructions were viewed. Automated exposure control was utilized for the study. A dose lowering technique was utilized adhering to the principles of ALARA. FINDINGS: Please note that the superior extent of the thoracolumbar spine fusion is imaged on the CT of the abdomen and pelvis. A T10-L5 fusion is noted. Multilevel discectomy and posterior decompression is noted. No acute fracture is identified. An old T12 compression fracture is unchanged. An old S2 fracture is also unchanged. Lucency adjacent to the bilateral T10 pedicle screws is unchanged. The appearance of the hardware is unchanged. Central canal and neural foramen are suboptimally assessed given CT technique. No osseous lesions are identified. IMPRESSION: 1. No acute lumbar spine fracture. 2. No change in extensive postoperative findings within the thoracolumbar spine since CT of October 26, 2022, as described above. Old T12 and L2 fractures. Lucency adjacent to the bilateral T10 pedicle screws unchanged. ACT 112: Negative or not required by law. Electronically signed by: Juan Canseco M.D. 07/19/2023 4:32 PM Pelvis MRI 07/20/23 12:33 Exam(s): MRI PELVIS Without Contrast EXAM: MR Pelvis Without Intravenous Contrast CLINICAL HISTORY: Reason for exam: sacral pain. TECHNIQUE: Multiplanar magnetic resonance images of the pelvis without intravenous contrast. COMPARISON: No relevant prior studies available. FINDINGS: Status post bilateral hip arthroplasties. Status post multilevel lumbar fusion hardware, extending to L5. No sacral fracture or subluxation. The sacral foramen are patent. Mild degenerative sclerosis of the sacroiliac joints, without widening or erosive changes. No MR evidence of sacroiliitis. Intact bilateral superior and inferior pubic rami. No tendinous avulsion injury within the pelvis. The intrapelvic contents are grossly unremarkable. IMPRESSION: No MR evidence of sacroiliitis. No fracture of the sacrum. Mild degenerative sclerosis of the sacroiliac joints, without widening or erosive changes. Bilateral hip arthroplasties and multilevel lumbar posterior fusion. Electronically signed by: Roel Singh MD 07/20/23 20:12 PM (3) Chronic pain Chronic pain type: other chronic pain Qualified Code(s): G89.29 - Other chronic pain
[2023-07-22] MEDS ORDERED: oxyCODONE HCL IR 5 MG TAB (IMMEDIATE RELEASE) PO PRN (17:50)
[2023-07-22] MEDS: TOPIRAMATE 100 MG TAB PO SCH (21:03)
[2023-07-23] MEDS ORDERED: oxyCODONE HCL IR 5 MG TAB (IMMEDIATE RELEASE) PO STA ×2 (03:34→14:52)
[2023-07-23] MEDS: ACETAMINOPHEN 500 MG TAB PO SCH ×2 (04:46→14:37)
[2023-07-23] MEDS: LEVOTHYROXINE SODIUM 50 MCG TABLET PO SCH (05:49)
[2023-07-23] MEDS ORDERED: HYDROmorphone INJ 0.5 MG/0.5 ML SYR IV STA (05:49)
[2023-07-23] MEDS: METAXALONE 800 MG TABLET PO PRN ×2 (07:58→14:37)
[2023-07-23] MEDS: GABAPENTIN 300 MG CAP PO SCH ×2 (07:59→12:10)
[2023-07-23] MEDS: lamoTRIgine 100 MG TAB PO SCH (07:59)
[2023-07-23] MEDS: DULoxetine HCL 60 MG CAP PO SCH (07:59)
[2023-07-23] MEDS: predniSONE 5 MG TAB PO SCH (07:59)
[2023-07-23] MEDS: PANTOprazole 40 MG TAB PO SCH (07:59)
[2023-07-23] MEDS: LOSARTAN POTASSIUM 50 MG TAB PO SCH (07:59)
[2023-07-23] MEDS: FERROUS SULFATE 325 MG TAB PO SCH (07:59)
[2023-07-23] MEDS: lamoTRIgine 25 MG TAB PO SCH (07:59)
[2023-07-23] MEDS: FUROSEMIDE 20 MG TAB PO SCH (07:59)
[2023-07-23] MEDS: LIDOCAINE 5% 1 PATCH TD PRN (08:00)
[2023-07-23] MEDS: ENOXAPARIN INJ 40 MG/0.4 ML SYR SQ SCH (08:01)
--- NOTE | 2023-07-23 13:52 | Discharge Summary ---
Discharge Summary Date of Service July 23, 2023 Notes For Next Care Provider complex regional pain syndrome 2/2 multiple orthopedic procedures Medication Changes From Visit Tramadol 50mg eQ8H PRN for breakthrough pain (to bridge until PCP/pain management follow-up) Admission HPI Per Admitting Provider Pt is a 67yoF with past medical history significant for bipolar disorder, history of suicide attempt, anxiety, fibromyalgia, chronic pain syndrome, complex PTSD, HTN, hypothyroidism, OA of both knees and CKD stage III admitted with complaints of intractable back pain. States that she had back injections around Jun [address] Barton from [facility]. States in addition to her usual pain, she started having burning pain that "bit and chewed". Located in lower back below area that was injected. States that she reached out to Dr Barton's office and was advised that sometimes the injections can unmask pain that was previously there. States that she was advised to follow up in 6 weeks but provider is out of town and it will be 8 weeks before she sees him. States she was advised to go to the ED for further evaluation. States the pain is limiting her ability to walk and it hurts where she got the shots. States that she cannot do PT without pain medications. notes previous Hx of rods and screws in her back. Admission Exam Per Admitting Provider General: Alert, oriented. No acute distress while sitting in bed Skin: No noted rashes or bruises Psych: Appropriate mood and affect Neuro: difficulty with left shoulder movement, strength and sensation grossly intact bilaterally in lower extremities HEENT: NC/AT CV: RRR Resp: Breath sounds clear bilaterally, no increased effort of breathing. Abdomen: Soft, tender RLQ Extremities: no edema MSK: difficulty with left shoulder movement, strength and sensation grossly intact bilaterally in lower extremities Principal Dx & Hospital Course #1 = Principal Diagnosis (1) Complex regional pain syndrome I, unspecified: (2) Fibromyalgia: (3) Chronic pain: Plan This is a 67 yr female with past medical history significant for complex regional pain syndrome 2/2 multiple orthopedic procedures, bipolar disorder, anxiety, fibromyalgia, complex PTSD, HTN, hypothyroidism and CKD stage III admitted with complaints of intractable back pain. Previously followed with [facility] and received injections by Dr. Barton. Lumbar CT:No acute lumbar spine fracture. No change in extensive postoperative findings within the thoracolumbar spine since CT of October 26, 2022, as described above. Old T12 and L2 fractures. Lucency adjacent to the bilateral T10 pedicle screws unchanged. Orthopedic spine evaluated and recommended pelvis MRI which did not reveal any signs of acute inflammation or acute fracture. Overall, no signs for acute surgical intervention. Dr. Priest recommends patient continue to follow with pain management, but needs a new provider due to her current one moving out of the area. Was evaluated by pain management service at [facility], who did not have any inpatient recommendations. Continued on regimen with duloxetine, prednisone, metaxalone, gabapentin. PT/OT recommend walker, which she already has at home. Discussed benefit of outpatient services such as home health and PT/OT, which patient is willing to pursue once pain is more adequately under control but not at this time. Referral sent to [facility] in [place], where she has an appointment in 2 weeks to establish with their pain management service. Able for prescription of tramadol to "bridge" until able to follow-up with PCP/established with pain management. Established with new PCP, records sent to this provider as well as pain management. Patient is hemodynamically stable at time of discharge home. Care plan discussed with patient and her friend/advocate Brandon at bedside. Discharge Exam Gen: WD/WN, NAD, sitting in bedside chair, A&Ox3 HEENT: Normocephalic, atraumatic, conjunctivae moist, sclerae anicteric, mucous membranes moist Lung: Clear to Auscultation bilaterally, no wheezes/rales/rhonchi Heart: Regular rate, regular rhythm, no murmurs, rubs, or gallops Abdomen: Soft, NT, ND +BS x 4 Extremities: +chronic painno edema Skin: Warm, no rash Updated Medication List Medication Instructions Recorded Confirmed Type prednisone 5 mg tablet 5 mg PO QAM 08/18/18 07/19/23 History ferrous sulfate 325 mg (65 mg 325 mg PO BIDM #1 tab 12/23/19 07/19/23 Rx iron) tablet,delayed release levothyroxine 50 mcg tablet 50 mcg PO DAILYBB #1 tab 12/23/19 07/19/23 Rx (Synthroid) acetaminophen 500 mg tablet 1,000 mg PO Q6H PRN Pain 03/20/20 07/19/23 History (Tylenol Extra Strength) metaxalone 800 mg tablet 800 mg PO QID PRN NEEDED PER [facility] 03/20/20 07/19/23 History omeprazole 20 mg capsule,delayed 20 mg PO BID 03/20/20 07/19/23 History release ondansetron 8 mg disintegrating 8 mg translingual Q8H PRN Nausea 03/20/20 07/19/23 History tablet duloxetine 60 mg capsule,delayed 120 mg (2 x 60 mg) PO QAM #60 caps 06/20/20 07/19/23 Rx release gabapentin 300 mg capsule 300 mg PO QID 30 days #120 caps 06/20/20 07/19/23 Rx lamotrigine 150 mg tablet 150 mg PO BID #60 tabs 06/20/20 07/19/23 Rx losartan 50 mg tablet 50 mg PO QAM 06/26/20 07/19/23 History acyclovir 5 % topical ointment 1 applic topical 6XD PRN LIP SORES 10/27/22 07/19/23 History (Zovirax) SOON SYMPTOMS START. albuterol sulfate 90 mcg/actuation 2 puff inhalation QID PRN 10/27/22 07/19/23 History aerosol inhaler Shortness Of Breath Or Wheezing diclofenac sodium 1 % topical gel 2 g topical QID PRN Pain 10/27/22 07/19/23 History fluticasone propionate 50 2 spray intranasal DAILY PRN 10/27/22 07/19/23 History mcg/actuation nasal Congestion spray,suspension polyethylene glycol 3350 17 17 g PO DAILY PRN Constipation 10/27/22 07/19/23 History gram/dose oral powder (Miralax) topiramate 100 mg tablet 200 mg (2 x 100 mg) PO HS #30 tabs 12/15/22 07/19/23 Rx furosemide 20 mg tablet 20 mg PO QAM 07/19/23 07/19/23 History lidocaine 5 % topical patch 1 patch topical DAILY PRN Pain 07/19/23 07/19/23 History gabapentin 300 mg capsule 300 mg PO QID #60 caps 07/23/23 Rx tramadol 50 mg tablet 50 mg PO Q8H PRN pain #21 tabs 07/23/23 Rx Hospital Stay Data Consultations 07/19/23 18:55 ED Decision to Admit Stat 07/19/23 22:02 Consult Orthopedic Spine Surgery Routine Consult Pain Management Routine Diagnostic Imagining Performed Abdomen/Pelvis CT 07/19/23 15:22 CT OF THE ABDOMEN AND PELVIS WITH CONTRAST CLINICAL HISTORY: Nausea/diarrhea, fever, acute on chronic back pain. COMPARISON STUDY: CT of the abdomen and pelvis October 26, 2022. MRCP January 07, 2022. TECHNIQUE: Following IV administration of 89 mL of Optiray, axial images of the abdomen and pelvis were obtained from the lung bases to the proximal femurs. Images were reviewed in the axial, sagittal, and coronal planes. IV contrast was administered without complication. Automated exposure control was utilized for the study. A dose lowering technique was utilized adhering to the principles of ALARA. FINDINGS: No pneumatosis, free air or portal venous gas is present. This exam is compromised by artifact from spinal hardware and bilateral hip arthroplasties. Lateral segment hepatic cysts are again noted. Intra and extra hepatic biliary ductal dilatation is unchanged since CT of October 26, 2022. No pancreatic ductal dilatation is present. There no peripancreatic or pericholecystic infiltration. Spleen, adrenal glands and kidneys are unremarkable. There is no hydronephrosis. The small bowel is mildly fluid-filled. No transition point is identified. Caliber and wall thickness of small and large bowel are normal. The appendix is normal. There is no lymphadenopathy. There are no fluid collections. Interval right hip arthroplasty is noted. There are postoperative finding within the spine. Please note that the lumbar spine CT will be reported separately. An old [id number] is unchanged. An old compression fracture of the inferior endplate of T12 is also unchanged. Lucency adjacent to the bilateral T10 pedicle screws is unchanged. No acute fractures are present. Multilevel discectomy and posterior decompression. IMPRESSION: 1. Mildly fluid-filled small bowel. This could represent enteritis. No bowel obstruction. No bowel wall thickening. Normal appendix. 2. No change in biliary ductal dilatation. This remains nonspecific and could be correlated with liver function tests. 3. Exam compromised by streak artifact from surgical hardware. ACT 112: Negative or not required by law. Electronically signed by: Juan Canseco M.D. 07/19/2023 4:[address] 07/19/23 15:22 CT lumbar spine w con CLINICAL HISTORY: nausea/diarrhea, fever, acute on chronic back pain COMPARISON STUDY: Lumbar spine radiographs December 23, 2019. Lumbar spine MRI February 03, 2019. CT of the abdomen and pelvis October 26, 2022. TECHNIQUE: Axial images of the lumbar spine were obtained. Sagittal and coronal reconstructions were viewed. Automated exposure control was utilized for the study. A dose lowering technique was utilized adhering to the principles of ALARA. FINDINGS: Please note that the superior extent of the thoracolumbar spine fusion is imaged on the CT of the abdomen and pelvis. A T10-L5 fusion is noted. Multilevel discectomy and posterior decompression is noted. No acute fracture is identified. An old T12 compression fracture is unchanged. An old S2 fracture is also unchanged. Lucency adjacent to the bilateral T10 pedicle screws is unchanged. The appearance of the hardware is unchanged. Central canal and neural foramen are suboptimally assessed given CT technique. No osseous lesions are identified. IMPRESSION: 1. No acute lumbar spine fracture. 2. No change in extensive postoperative findings within the thoracolumbar spine since CT of October 26, 2022, as described above. Old T12 and L2 fractures. Lucency adjacent to the bilateral T10 pedicle screws unchanged. ACT 112: Negative or not required by law. Electronically signed by: Juan Canseco M.D. 07/19/2023 4:32 PM Pelvis MRI 07/20/23 12:33 Exam(s): MRI PELVIS Without Contrast EXAM: MR Pelvis Without Intravenous Contrast CLINICAL HISTORY: Reason for exam: sacral pain. TECHNIQUE: Multiplanar magnetic resonance images of the pelvis without intravenous contrast. COMPARISON: No relevant prior studies available. FINDINGS: Status post bilateral hip arthroplasties. Status post multilevel lumbar fusion hardware, extending to L5. No sacral fracture or subluxation. The sacral foramen are patent. Mild degenerative sclerosis of the sacroiliac joints, without widening or erosive changes. No MR evidence of sacroiliitis. Intact bilateral superior and inferior pubic rami. No tendinous avulsion injury within the pelvis. The intrapelvic contents are grossly unremarkable. IMPRESSION: No MR evidence of sacroiliitis. No fracture of the sacrum. Mild degenerative sclerosis of the sacroiliac joints, without widening or erosive changes. Bilateral hip arthroplasties and multilevel lumbar posterior fusion. Electronically signed by: Roel Singh MD 07/20/23 20:12 PM 07/19/23 15:22 CT abd pelvis IV con only Stat CT lumbar spine w con Stat 07/20/23 12:33 MR pelvis wo con Routine Pending Results Patient Have Any Pending Studies at Discharge: No Discharge Instructions Given to Patient (Per Discharging Provider) MEDICATION CHANGES: Tramadol 50mg every eight hours as needed for breakthrough pain (to bridge until PCP/pain management follow-up) SUMMARY OF TEST RESULTS: You were admitted to hospital for chronic pain in setting of complex regional pain syndrome 2/2 multiple orthopedic procedures Ortho spine reviewed MRI and did not show an signs of acute inflammation or acute fracture; overall no signs for acute surgical intervention. PENDING TEST RESULTS: None RECOMMENDATIONS FOR FOLLOW-UP: Follow up with new PCP as scheduled above. Referral sent to [facility] for pain management. Continue medication regimen as scheduled aside from changes noted above. OTHER INSTRUCTIONS: Seek medical attention if you have: * temperature above 101 * chest pain or trouble breathing * abdominal pain, nausea, vomiting * diarrhea, dark stools or bloody stools * any unanswered questions or concerns Call 121 if symptoms are severe. Please take good care of yourself. Call if you have any questions or problems. You can reach a [facility] hospitalist on duty at [facility] 24 hours a day by calling [phone]. Total Time Total Time Spent Total Time Spent (In Minutes): 75 Supervising Physician Co-Signing Physician Notes I have seen and discussed the case with the collaborating CLAIR. I agree with the above H&P. I have reviewed and confirmed the patients medical history, the findings on physical examination, and the patients diagnosis and treatment plan with Christian SELF and agree with the information documented. In short, Ms. Odom is a 67 year old woman with fibromyalgia, chronic pain from multiple orthopedic procedures , BPDII who is admitted due to acute on chronic back pain. Ortho spine review MRI and did not reveal any signs of acute inflammation or acute fracture, overall no signs for acute surgical in tervention. Pain management at [facility] no longer has pain agreement with patient for under clear circumstances. Patient has multiple orthopedic procedures that alone contribute to a degree of chronic ongoing pain: 1. Two and half weeks out from right cemented bipolar hip arthroplasty for fracture, doing well. 2. Left chronic rotator cuff disease with some improvement after injection a month ago. 3. Right knee DJD with history of tibial plateau fracture in the past, somewhat improved with injection. 4. Status post left hip replacement by Dr. Cano with one dislocation. Patient does appear to experience emotional distress and disturbances, with reported contributions from complex-PTSD (reportedly diagnosed by her psychiatrist, though access to these confidential records is limited) and explained very clearly her traumas/experiences. There is without question that this contributes to a degree the overwhelming intensity by which she experiences her pain and distress. Not only does her constellation of symptoms in the lumbosacral region with radiation in the lower extremities reflect post-surgical pain and complex regional pain from multiple surgical interventions, she has underlying DJD/arthritis/physical ailments. Patient does feel overwhelmed by the complexity of her emotions that she states she often cannot express her symptoms adequately to outpatient providers and feels hurt/discrimination given the thought she is "drug seeking"; however, she is open to forming relationship with pain specialist who would explore various modalities. It was explained to patient that her chronic pain is not able to be adequately managed in the inpatient setting, including her exacerbations. There are no acute or palliative/terminal reasons to prescribe opioids to patient at this time. Given Tramadol has SNRI properties and can occasionally offer relief in patients with complex pain syndromes, a prescription was given to aid patent to establish with a compassionate provider to hear patient and explore modalities.
[2023-07-23 16:09] LABS: Ehrlichia chaff DNA Bld Negative (Negative)
[2023-07-25 18:52] LABS: Babesia microti DNA Not Detected (Not Detected); Q Fever IgG, Phase I NEGATIVE; Q Fever Phase I IgM Antibody NEGATIVE; Q Fever Phase II IgG Antibody NEGATIVE; Q Fever Phase II IgM Antibody NEGATIVE; R. typhi IgG Ab NOT DETECTED; R. typhi IgM Ab NOT DETECTED; RMSF IgG Ab NOT DETECTED; RMSF IgM Ab NOT DETECTED
== END 2023-07-23 16:03 | disposition home or self-care (01) | DRG 74 ==
LOC: ED 13:08 → 3E 20:03 → SUATTDRO 20:03 → 3E 21:05